=== PATIENT | female | born 1960 | race Caucasian/White ===

== ENCOUNTER 2020-10-12 12:16 | Outpatient (REF) | payer OTHER, SELFPAY ==
[2020-10-12 14:45] LABS: Anion Gap 13 (12-20); Blood Urea Nitrogen 27 mg/dL (9-16); Calcium 8.8 mg/dL (8.4-10.2); Carbon Dioxide 30 mmol/L (22-29); Chloride 103 mmol/L (96-108); Estimated Glomerular Filt Rate > 60; Glucose Random 88 mg/dL (60-115); Potassium 4.5 mmol/l (3.3-5.1); Sodium 141 mmol/L (135-145)
== END 2020-10-12 12:17 | disposition home or self-care (01) ==
LOC: HO.HMGCLDS 12:16
PROVIDERS: PCP Internal Medicine; Visit Provider Internal Medicine
DX: R60.9 Edema, unspecified (principal)
CPT/HCPCS: 80048

== ENCOUNTER 2021-05-15 11:31 | Outpatient (REF) | payer OTHER, SELFPAY ==
[2021-05-15 14:23] LABS: Hematocrit 36.8 % (37-47); Hemoglobin 11.5 g/dl (12.0-16.0); Mean Corpuscular HGB Conc 31.3 g/dl (31.0-35.0); Mean Corpuscular Hemoglobin 27.3 pg (27.0-33.0); Mean Corpuscular Volume 87.4 fL (80-98); Mean Platelet Volume 11.8 fL (9.4-12.3); Platelet Count 224 X10*3/uL (160-400); Red Blood Count 4.21 X10*6/uL (4.20-5.50); Red Cell Distribution Width 15.3 % (11.0-16.0); White Blood Count 8.4 X10*3/uL (4.8-10.8)
[2021-05-15 14:24] LABS: Alanine Aminotransferase 24 U/L (0-31); Albumin Level 3.9 g/dL (3.5-5.0); Alkaline Phosphatase 112 U/L (39-117); Anion Gap 14 (12-20); Aspartate Amino Transferase 16 U/L (5-31); Bilirubin Total 0.6 mg/dL (0.0-1.0); Blood Urea Nitrogen 22 mg/dL (9-16); Calcium 9.2 mg/dL (8.4-10.2); Carbon Dioxide 30 mmol/L (22-29); Chloride 102 mmol/L (96-108); Estimated Glomerular Filt Rate > 60; Glucose Random 84 mg/dL (60-115); Potassium 4.2 mmol/L (3.3-5.1); Sodium 142 mmol/L (135-145); Total Protein 6.6 g/dL (6.5-8.0)
== END 2021-05-15 11:32 | disposition home or self-care (01) ==
LOC: HO.HMGCLDS 11:31
PROVIDERS: PCP Internal Medicine; Visit Provider Internal Medicine
DX: R60.9 Edema, unspecified (principal); I10 Essential (primary) hypertension; G47.33 Obstructive sleep apnea (adult) (pediatric); Z99.89 Dependence on other enabling machines and devices
CPT/HCPCS: 36415; 80053; 85027

== ENCOUNTER → 2021-07-10 11:34 | Outpatient (BNVA) | payer OTHER, SELFPAY | PROVIDERS: PCP Internal Medicine; Referring Provider Internal Medicine; Visit Provider Psychiatry & Neurology Neurology | DX: G47.33 Obstructive sleep apnea (adult) (pediatric) (principal); E66.9 Obesity, unspecified; Z99.89 Dependence on other enabling machines and devices | CPT/HCPCS: 99202 ==

== ENCOUNTER 2021-12-24 11:27 | Outpatient (REF) | payer OTHER, SELFPAY ==
[2021-12-24 14:26] LABS: Alanine Aminotransferase 41 U/L (0-31); Albumin Level 3.9 g/dL (3.5-5.0); Alkaline Phosphatase 114 U/L (39-117); Anion Gap 13 (12-20); Aspartate Amino Transferase 32 U/L (5-31); Bilirubin Total 0.7 mg/dL (0.0-1.0); Blood Urea Nitrogen 18 mg/dL (9-16); Calcium 8.9 mg/dL (8.4-10.2); Carbon Dioxide 28 mmol/L (22-29); Chloride 101 mmol/L (96-108); Cholesterol 148 mg/dL; Estimated Glomerular Filt Rate > 60; Glucose Fasting 109 mg/dL (60-99); HDL Cholesterol 33 mg/dL; LDL Cholesterol Calculated 75 mg/dl; Potassium 4.1 mmol/L (3.3-5.1); Sodium 138 mmol/L (135-145); Total Protein 6.9 g/dL (6.5-8.0); Triglycerides 200 mg/dL
== END 2021-12-24 11:28 | disposition home or self-care (01) ==
LOC: HO.HMGCLDS 11:27
PROVIDERS: Visit Provider Internal Medicine
DX: E66.9 Obesity, unspecified (principal); E78.2 Mixed hyperlipidemia; G47.33 Obstructive sleep apnea (adult) (pediatric); G62.9 Polyneuropathy, unspecified; I10 Essential (primary) hypertension; Z99.89 Dependence on other enabling machines and devices
CPT/HCPCS: 36415; 80053; 80061

== ENCOUNTER → 2022-01-01 10:55 | Outpatient (BNVA) | payer OTHER, SELFPAY | PROVIDERS: PCP Internal Medicine; Referring Provider Internal Medicine; Visit Provider Psychiatry & Neurology Neurology ==

== ENCOUNTER → 2022-01-23 13:01 | Outpatient (REF) | payer OTHER, SELFPAY | LOC: HO.SL 13:01 | PROVIDERS: PCP Internal Medicine; Visit Provider Psychiatry & Neurology Neurology | DX: G47.33 Obstructive sleep apnea (adult) (pediatric) (principal); E66.9 Obesity, unspecified; G25.81 Restless legs syndrome; Z99.89 Dependence on other enabling machines and devices | CPT/HCPCS: 95806 ==

== ENCOUNTER 2022-04-22 11:22 | Outpatient (REF) | payer OTHER, SELFPAY ==
[2022-04-22 13:48] LABS: Hematocrit 37.4 % (37.0-47.0); Hemoglobin 11.7 g/dl (12.0-16.0); Mean Corpuscular HGB Conc 31.3 g/dl (31.0-35.0); Mean Corpuscular Hemoglobin 27.4 pg (27.0-33.0); Mean Corpuscular Volume 87.6 fL (80.0-98.0); Mean Platelet Volume 12.2 fL (9.4-12.3); Platelet Count 218 X10*3/uL (160-400); Red Blood Count 4.27 X10*6/uL (4.20-5.50); Red Cell Distribution Width 16.1 % (11.0-16.0)
[2022-04-22 14:02] LABS: Alanine Aminotransferase 49 U/L (0-31); Alkaline Phosphatase 136 U/L (39-117); Anion Gap 12 (12-20); Aspartate Amino Transferase 37 U/L (5-31); Bilirubin Total 0.7 mg/dL (0.0-1.0); Blood Urea Nitrogen 14 mg/dL (9-16); Carbon Dioxide 31 mmol/L (22-29); Chloride 100 mmol/L (96-108); Cholesterol 141 mg/dL; Estimated Glomerular Filt Rate > 60; Glucose Fasting 117 mg/dL (60-99); HDL Cholesterol 32 mg/dL; LDL Cholesterol Calculated 65 mg/dl; Potassium 4.4 mmol/L (3.3-5.1); Sodium 139 mmol/L (135-145); Total Protein 6.7 g/dL (6.5-8.0); Triglycerides 224 mg/dL
[2022-04-22 14:07] LABS: Estimated Average Glucose 148 mg/dL; Hemoglobin A1c % 6.8 %
== END 2022-04-22 11:23 | disposition home or self-care (01) ==
LOC: HO.HMGCLDS 11:22
PROVIDERS: Visit Provider Internal Medicine
DX: E66.01 Morbid (severe) obesity due to excess calories (principal); E78.2 Mixed hyperlipidemia; I10 Essential (primary) hypertension; R73.9 Hyperglycemia, unspecified
CPT/HCPCS: 36415; 80053; 80061; 83036; 85027

== ENCOUNTER → 2022-08-26 13:20 | Outpatient (BNVA) | payer OTHER, SELFPAY | PROVIDERS: PCP Internal Medicine; Referring Provider Internal Medicine; Visit Provider Physician Assistant | DX: E66.01 Morbid (severe) obesity due to excess calories (principal); M48.00 Spinal stenosis, site unspecified; E11.65 Type 2 diabetes mellitus with hyperglycemia; E78.2 Mixed hyperlipidemia; I10 Essential (primary) hypertension; G47.33 Obstructive sleep apnea (adult) (pediatric); Z99.89 Dependence on other enabling machines and devices | CPT/HCPCS: 99212 ==

== ENCOUNTER 2022-08-27 11:21 | Outpatient (REF) | payer OTHER, SELFPAY ==
[2022-08-27 14:15] LABS: MANUAL DIFF FLAG NO
[2022-08-27 14:25] LABS: Basophils Percent Auto 0.2 % (0-2); Eosinophils Absolute Auto 0.4 X10*3/uL (0.0-0.4); Eosinophils Percent Auto 4.3 % (0-4); Hematocrit 37.3 % (37.0-47.0); Imm Gran Abs Auto 0.02 X10*3/uL (0.00-0.03); Imm Gran Pct Auto 0.2 % (0.0-0.4); Lymphocytes Absolute Auto 1.9 X10*3/uL (1.2-4.9); Lymphocytes Percent Auto 23.1 % (20-40); Mean Corpuscular HGB Conc 32.2 g/dl (31.0-35.0); Mean Corpuscular Hemoglobin 28.2 pg (27.0-33.0); Mean Corpuscular Volume 87.6 fL (80.0-98.0); Mean Platelet Volume 11.7 fL (9.4-12.3); Monocytes Absolute Auto 0.7 X10*3/uL (0.1-1.2); Monocytes Percent Auto 9.1 % (2-11); Neutrophils Absolute Auto 5.1 x10*3/uL (2.0-8.3); Neutrophils Percent Auto 63.1 % (45-73); Platelet Count 214 X10*3/uL (160-400); Red Blood Count 4.26 X10*6/uL (4.20-5.50); Red Cell Distribution Width 15.1 % (11.0-16.0); White Blood Count 8.1 X10*3/uL (4.8-10.8)
[2022-08-27 14:45] LABS: Estimated Average Glucose 137 mg/dL; Hemoglobin A1c % 6.4 %
[2022-08-27 14:57] LABS: Creatinine Urine 18.12 mg/dL; Microalbum/Creatinine Ratio Ur 66.2 ug/mg cr
[2022-08-27 14:59] LABS: Alanine Aminotransferase 38 U/L (0-31); Albumin Level 4.1 g/dL (3.5-5.0); Alkaline Phosphatase 130 U/L (39-117); Anion Gap 17 (12-20); Aspartate Amino Transferase 28 U/L (5-31); Bilirubin Total 0.6 mg/dL (0.0-1.0); Blood Urea Nitrogen 23 mg/dL (9-16); C Reactive Protein 1.68 mg/dL (< or = 0.50); Calcium 9.6 mg/dL (8.4-10.2); Carbon Dioxide 27 mmol/L (22-29); Chloride 99 mmol/L (96-108); Cholesterol 133 mg/dL; Estimated Glomerular Filt Rate > 60; Glucose Fasting 128 mg/dL (60-99); HDL Cholesterol 31 mg/dL; Iron 57 mcg/dL (30-160); LDL Cholesterol Calculated 49 mg/dl; Percent Iron Saturation 18 % (15-50); Potassium 4.1 mmol/L (3.3-5.1); Sodium 139 mmol/L (135-145); Total Iron Binding Capacity 314 mcg/dL (228-428); Total Protein 6.8 g/dL (6.5-8.0); Triglycerides 267 mg/dL; Unsaturated Iron Binding 257 ug/dL
[2022-08-27 15:08] LABS: Ferritin 104 ng/mL (10-250); Insulin 60 uU/mL (2-29); TSH reflex Free T4 1.89 uIU/mL (0.32-4.0); Vitamin D 25-OH Total 36.9 ng/mL (>30)
[2022-08-27 15:36] LABS: Folate 19.4 ng/mL (> or = 4.0); Vitamin B12 340 pg/mL (200-900)
[2022-08-29 14:57] LABS: Calcium (PTHI) 9.5 mg/dL (8.6-10.4); PTHI 31 pg/mL (16-77)
[2022-08-31 06:52] LABS: Zinc 71 mcg/dL (60-130)
[2022-09-01 18:56] LABS: Vitamin A 66 mcg/dL (38-98)
[2022-09-03 11:42] LABS: Vitamin B1 16 nmol/L (8-30)
== END 2022-08-27 11:22 | disposition home or self-care (01) ==
LOC: HO.HMGCLDS 11:21
PROVIDERS: Absent Provider Physician Assistant; PCP Internal Medicine; Visit Provider Internal Medicine
DX: E78.2 Mixed hyperlipidemia (principal); I10 Essential (primary) hypertension; E66.9 Obesity, unspecified; E11.9 Type 2 diabetes mellitus without complications; E66.01 Morbid (severe) obesity due to excess calories; M48.00 Spinal stenosis, site unspecified
CPT/HCPCS: 36415; 80053; 80061; 82043; 82306; 82607; 82728; 82746; 83036; 83525; 83540; 83970; 84425; 84443; 84590; 84630; 85025; 86140

== ENCOUNTER → 2022-09-19 11:29 | Outpatient (BNVA) | payer OTHER, SELFPAY | PROVIDERS: PCP Internal Medicine; Visit Provider Dietitian, Registered | DX: E66.01 Morbid (severe) obesity due to excess calories (principal) | CPT/HCPCS: 97802 ==

== ENCOUNTER → 2022-09-24 13:00 | Outpatient (BNVA) | payer OTHER, SELFPAY | PROVIDERS: PCP Internal Medicine; Visit Provider Counselor Mental Health | DX: F43.20 Adjustment disorder, unspecified (principal); M48.00 Spinal stenosis, site unspecified; E66.9 Obesity, unspecified | CPT/HCPCS: 90791 ==

== ENCOUNTER → 2022-09-25 13:18 | Outpatient (BNVA) | payer OTHER, SELFPAY | PROVIDERS: PCP Internal Medicine; Visit Provider Physician Assistant | DX: E66.01 Morbid (severe) obesity due to excess calories (principal); G47.33 Obstructive sleep apnea (adult) (pediatric); E11.9 Type 2 diabetes mellitus without complications; M48.00 Spinal stenosis, site unspecified; Z99.89 Dependence on other enabling machines and devices; Z68.44 Body mass index [BMI] 60.0-69.9, adult | CPT/HCPCS: 99212 ==

== ENCOUNTER 2022-10-17 13:02 | Outpatient (REF) | payer OTHER, SELFPAY ==
--- NOTE | ~2022-10-17 | XR_ITS ---
EXAMINATION: XR CHEST CLINICAL INFORMATION: G47.33 - Obstructive sleep apnea COMPARISON: None TECHNIQUE: Sitting AP x2 views and a sitting lateral projection are obtained for 3 views. FINDINGS: No airspace consolidation or groundglass opacity or effusion. No hyperinflation. The heart is normal in size. The hilar and mediastinal contours are unremarkable. There are mild multilevel degenerative changes thoracic spine. XR/XR chest 2V IMPRESSION: Unremarkable examination.
--- NOTE | 2022-10-17 13:09 | ECG_ITS ---
Test Reason : eliezer Blood Pressure : / mmHG Vent. Rate : 064 BPM Atrial Rate : 064 BPM P-R Int : 184 ms QRS Dur : 086 ms QT Int : 426 ms P-R-T Axes : 065 010 002 degrees QTc Int : 439 ms Normal sinus rhythm Normal ECG No previous ECGs available Referred By: Yoli Reina Electronically Signed By:KALIA PRIETO MD
== END 2022-10-17 13:03 | disposition home or self-care (01) ==
LOC: HO.XRAY 13:02
PROVIDERS: PCP Internal Medicine; Visit Provider Physician Assistant
DX: M48.00 Spinal stenosis, site unspecified (principal); E11.9 Type 2 diabetes mellitus without complications; E78.2 Mixed hyperlipidemia; G47.33 Obstructive sleep apnea (adult) (pediatric); I10 Essential (primary) hypertension; Z99.89 Dependence on other enabling machines and devices
CPT/HCPCS: 71046; 93005; 99212

== ENCOUNTER 2022-11-07 | Outpatient (REF) | payer OTHER, SELFPAY ==
[2022-11-08 15:21] LABS: H Pylori Breath Test Negative (Negative)
== END 2022-11-07 00:01 | disposition home or self-care (01) ==
LOC: HO.LNP
PROVIDERS: Visit Provider Physician Assistant
DX: Z11.0 Encounter for screening for intestinal infectious diseases (principal)
CPT/HCPCS: 83013

== ENCOUNTER → 2022-11-07 14:40 | Outpatient (BNVA) | payer OTHER, SELFPAY | PROVIDERS: PCP Internal Medicine; Visit Provider Physician Assistant | DX: E66.01 Morbid (severe) obesity due to excess calories (principal); Z68.44 Body mass index [BMI] 60.0-69.9, adult; E11.9 Type 2 diabetes mellitus without complications; G47.33 Obstructive sleep apnea (adult) (pediatric); Z11.0 Encounter for screening for intestinal infectious diseases | CPT/HCPCS: 99211; 99212 ==

== ENCOUNTER 2022-11-26 10:27 | Outpatient (REF) | payer OTHER, SELFPAY ==
[2022-11-26 14:25] LABS: Alanine Aminotransferase 34 U/L (0-31); Alkaline Phosphatase 146 U/L (39-117); Anion Gap 16 (12-20); Aspartate Amino Transferase 29 U/L (5-31); Bilirubin Total 0.6 mg/dL (0.0-1.0); Blood Urea Nitrogen 29 mg/dL (9-16); Calcium 9.2 mg/dL (8.4-10.2); Carbon Dioxide 25 mmol/L (22-29); Chloride 102 mmol/L (96-108); Cholesterol 124 mg/dL; Estimated Glomerular Filt Rate > 60; Glucose Fasting 80 mg/dL (60-99); HDL Cholesterol 27 mg/dL; LDL Cholesterol Calculated 67 mg/dl; Potassium 4.6 mmol/L (3.3-5.1); Sodium 138 mmol/L (135-145); Total Protein 6.6 g/dL (6.5-8.0); Triglycerides 153 mg/dL
[2022-11-26 15:13] LABS: Estimated Average Glucose 120 mg/dL; Hemoglobin A1c % 5.8 %
[2022-11-26 15:34] LABS: Microalbum/Creatinine Ratio Ur 26.9 ug/mg cr
== END 2022-11-26 10:28 | disposition home or self-care (01) ==
LOC: HO.HMGCLDS 10:27
PROVIDERS: PCP Internal Medicine; Visit Provider Internal Medicine
DX: E66.01 Morbid (severe) obesity due to excess calories (principal); E11.9 Type 2 diabetes mellitus without complications; I10 Essential (primary) hypertension; E78.2 Mixed hyperlipidemia
CPT/HCPCS: 36415; 80053; 80061; 82043; 83036

== ENCOUNTER → 2022-11-27 13:29 | Outpatient (BNVA) | payer OTHER, SELFPAY | PROVIDERS: PCP Internal Medicine; Visit Provider Physician Assistant | DX: E66.01 Morbid (severe) obesity due to excess calories (principal); Z68.44 Body mass index [BMI] 60.0-69.9, adult; E11.9 Type 2 diabetes mellitus without complications; M48.00 Spinal stenosis, site unspecified | CPT/HCPCS: 99212 ==

== ENCOUNTER → 2022-12-18 13:38 | Outpatient (BNVA) | payer OTHER, SELFPAY | PROVIDERS: PCP Internal Medicine; Visit Provider Physician Assistant | DX: E66.01 Morbid (severe) obesity due to excess calories (principal); G47.33 Obstructive sleep apnea (adult) (pediatric); M48.00 Spinal stenosis, site unspecified; E11.9 Type 2 diabetes mellitus without complications; Z68.43 Body mass index [BMI] 50.0-59.9, adult | CPT/HCPCS: 99212 ==

== ENCOUNTER 2023-01-03 09:09 | Outpatient (REF) | payer OTHER, SELFPAY ==
--- NOTE | ~2023-01-03 | FL_ITS ---
EXAMINATION: XR FLUOROSCOPY UPPER GI WITH AIR CLINICAL INFORMATION: Obesity. Preop. COMPARISON: None TECHNIQUE: This patient was administered thin liquid barium while upright in AP and bilateral oblique drinking esophagrams were performed. Subsequently, patient was positioned in the supine position and AP and bilateral oblique views of the upper abdomen were performed. Traditional upper GI could not be performed due to patient size and limited mobility. FINDINGS: The esophagus is normal-appearing. The stomach and duodenum are normal. No reflux was observed the patient positioned in the supine position. No hernia seen. There are degenerative changes of the visualized thoracic and lumbar spine. There are postsurgical changes to the lumbar spine. FLUOROSCOPY TIME: No fluoroscopy used. 6 plate images. FL/FL upper GI w air IMPRESSION: Limited exam due to patient size and mobility. No abnormality seen.
--- NOTE | ~2023-01-03 | XR_ITS ---
EXAMINATION: XR lumbar spine 2-3V CLINICAL INFORMATION: Reason for Exam M48.00 - Spinal stenosis, site unspecified COMPARISON: None TECHNIQUE: 3 views of the lumbar spine FINDINGS: Evaluation is limited due to overlapping soft tissues on lateral views. 5 nonrib-bearing lumbar-type vertebral bodies. Vertebral body heights are grossly maintained. Status post posterior fusion hardware from L4 to L5 without evidence of hardware complication, although evaluation is limited. Rightward scoliosis. Degenerative changes of the spine with multilevel disc space narrowing. Paravertebral soft tissues are unremarkable. XR/XR lumbar spine 2-3V IMPRESSION: Status post posterior fusion hardware from L4 to L5 without evidence of hardware complication, although evaluation is limited due to overlapping soft tissues on lateral view.
--- NOTE | ~2023-01-03 | US_ITS ---
EXAMINATION: US COMPLETE ABDOMEN WITH LIVER ELASTOGRAPHY CLINICAL INFORMATION: Obstructive sleep apnea. COMPARISON: None. TECHNIQUE: Real-time imaging of the abdominal viscera. Noninvasive ultrasound liver fibrosis assessment is performed using Katina ElastPQ point quantification shear wave elastography (2D-SWE) with a C5-2 MHz transducer. Multiple elastography samples are obtained. FINDINGS: PANCREAS: Limited. The visualized pancreatic head and body are normal in appearance. The remainder of the pancreas is obscured from visualization by the overlying bowel gas. ABDOMINAL AORTA: The proximal segment is normal in caliber. The mid and distal segments are obscured by overlapping bowel gas. INFERIOR VENA CAVA: Visualized portions are normal. LIVER: The liver demonstrates normal size, contour and increased echogenicity. No focal lesion or intrahepatic biliary duct dilatation. The right lobe measures 18.3 cm in length. The left lobe measures 15.8 cm in length. Portal flow is towards the liver (hepatopetal). Shear wave liver elastography median stiffness is 1.40 m/s (reference: normal median stiffness is 1.3 m/s or less). IQR/median stiffness to assess sampling precision is 0.25 (reference: good quality data set is IQR/median stiffness of 0.15 or less). GALLBLADDER: Normal. The gallbladder is physiologically distended without evidence of stones, sludge, polyps, wall thickening or pericholecystic fluid. COMMON BILE DUCT: Normal in caliber measuring 0.3 cm in diameter. RIGHT KIDNEY: Normal. No hydronephrosis. No renal calculi or focal parenchymal lesions. The kidney measures 11.3 cm in maximum dimension. LEFT KIDNEY: Normal. No hydronephrosis. No renal calculi or focal parenchymal lesions. The kidney measures 11.7 cm in maximum dimension. SPLEEN: Limited visualization. The spleen measures 12.5 cm in maximum dimension. FREE FLUID: None. US/US abdomen comp w elastography IMPRESSION: 1. There is generalized increase in hepatic echotexture, consistent with fatty infiltration or hepatocellular disease. Please correlate clinically. No focal hepatic mass or intrahepatic biliary dilatation is seen. 2. Liver elastography: Although measurements appear to rule out compensated advanced chronic liver disease, there is statistical variability of the sampling which decreases accuracy. 3. Further technical limitations are noted on ultrasound examination of the pancreatic tail, abdominal great vessels and spleen. REFERENCE: Society of Radiologists in Ultrasound Liver Stiffness Thresholds (2020): LIVER STIFFNESS THRESHOLDS: *Liver Stiffness equal or less than 1.3 m/s: High probability of being normal. *Liver Stiffness less than 1.7 m/s: In the absence of other known clinical signs, rules out compensated advanced chronic liver disease. *Liver Stiffness 1.7-2.1 m/s: Suggestive of compensated advanced chronic liver disease but need further test for confirmation. *Liver Stiffness over 2.1 m/s: Rules in compensated advanced chronic liver disease. *Liver Stiffness over 2.4 m/s: Suggestive of clinically significant portal hypertension. QUALITY OF DATA SET: *IQR/Median value equal or less than 0.15 implies a quality data set. *IQR/Median value over 0.15 implies a poor quality data set. SIGNIFICANT CHANGE FROM PRIOR EXAM: Significant change if liver stiffness measurement is 10% or greater from prior exam. OTHER CONSIDERATIONS: The stage of liver fibrosis may be overestimated in the setting of acute hepatitis, liver inflammation, elevated liver function tests, hepatic vascular congestion, obstructive cholestasis, non-fasting state, and infiltrative diseases such as amyloidosis and lymphoma. In some patients with NAFLD, the liver stiffness thresholds for compensated advanced chronic liver disease may be lower. In causes other than viral hepatitis and NAFLD, liver stiffness thresholds are not well established.
== END 2023-01-03 09:10 | disposition home or self-care (01) ==
LOC: HO.US 09:09
PROVIDERS: Visit Provider Physician Assistant
DX: Z01.818 Encounter for other preprocedural examination (principal); G47.33 Obstructive sleep apnea (adult) (pediatric); I10 Essential (primary) hypertension; E78.2 Mixed hyperlipidemia; E11.9 Type 2 diabetes mellitus without complications; M48.00 Spinal stenosis, site unspecified; E66.01 Morbid (severe) obesity due to excess calories; Z99.89 Dependence on other enabling machines and devices
CPT/HCPCS: 72100; 74246; 76705; 76981

== ENCOUNTER → 2023-01-24 11:11 | Outpatient (BNVA) | payer OTHER, SELFPAY | PROVIDERS: PCP Internal Medicine; Referring Provider Internal Medicine; Visit Provider Physician Assistant | DX: E66.9 Obesity, unspecified (principal); E11.9 Type 2 diabetes mellitus without complications; G47.33 Obstructive sleep apnea (adult) (pediatric); M48.00 Spinal stenosis, site unspecified; Z68.43 Body mass index [BMI] 50.0-59.9, adult; Z99.3 Dependence on wheelchair | CPT/HCPCS: 99212 ==

== ENCOUNTER → 2023-02-26 13:42 | Outpatient (BNVA) | payer OTHER, SELFPAY | PROVIDERS: PCP Internal Medicine; Visit Provider Physician Assistant | DX: E66.01 Morbid (severe) obesity due to excess calories (principal); E11.65 Type 2 diabetes mellitus with hyperglycemia; E11.40 Type 2 diabetes mellitus with diabetic neuropathy, unspecified; I10 Essential (primary) hypertension; E78.2 Mixed hyperlipidemia; Z79.4 Long term (current) use of insulin; Z99.3 Dependence on wheelchair | CPT/HCPCS: 99212 ==

== ENCOUNTER 2023-03-18 10:56 | Outpatient (REF) | payer OTHER, SELFPAY ==
[2023-03-18 14:52] LABS: Estimated Average Glucose 105 mg/dL; Hemoglobin A1c % 5.3 %
[2023-03-18 14:56] LABS: Alanine Aminotransferase 33 U/L (0-31); Albumin Level 3.9 g/dL (3.5-5.0); Alkaline Phosphatase 139 U/L (39-117); Anion Gap 13 (12-20); Aspartate Amino Transferase 20 U/L (5-31); Bilirubin Total 0.8 mg/dL (0.0-1.0); Blood Urea Nitrogen 20 mg/dL (9-16); Calcium 9.4 mg/dL (8.4-10.2); Carbon Dioxide 30 mmol/L (22-29); Chloride 102 mmol/L (96-108); Cholesterol 131 mg/dL; Estimated Glomerular Filt Rate > 60; Glucose Fasting 85 mg/dL (60-99); HDL Cholesterol 30 mg/dL; LDL Cholesterol Calculated 74 mg/dl; Potassium 4.4 mmol/L (3.3-5.1); Sodium 141 mmol/L (135-145); Total Protein 6.4 g/dL (6.5-8.0); Triglycerides 138 mg/dL
[2023-03-18 15:09] LABS: Vitamin D 25-OH Total 47.4 ng/mL (>30)
== END 2023-03-18 10:57 | disposition home or self-care (01) ==
LOC: HO.HMGCLDS 10:56
PROVIDERS: PCP Internal Medicine; Visit Provider Internal Medicine
DX: E11.9 Type 2 diabetes mellitus without complications (principal); E78.2 Mixed hyperlipidemia; I10 Essential (primary) hypertension
CPT/HCPCS: 36415; 80053; 80061; 82306; 83036

== ENCOUNTER → 2023-03-19 14:00 | Outpatient (BNVA) | payer OTHER, SELFPAY | PROVIDERS: PCP Internal Medicine; Visit Provider Physician Assistant | DX: E66.01 Morbid (severe) obesity due to excess calories (principal); E11.9 Type 2 diabetes mellitus without complications; G47.33 Obstructive sleep apnea (adult) (pediatric); M48.00 Spinal stenosis, site unspecified; Z99.3 Dependence on wheelchair ==

== ENCOUNTER → 2023-03-31 12:27 | Outpatient (BNVA) | payer OTHER, SELFPAY | PROVIDERS: PCP Internal Medicine; Visit Provider Surgery | DX: E66.01 Morbid (severe) obesity due to excess calories (principal); E11.9 Type 2 diabetes mellitus without complications; E78.2 Mixed hyperlipidemia; G47.33 Obstructive sleep apnea (adult) (pediatric); Z68.43 Body mass index [BMI] 50.0-59.9, adult; Z99.3 Dependence on wheelchair; Z99.89 Dependence on other enabling machines and devices | CPT/HCPCS: 99212 ==

== ENCOUNTER → 2023-04-22 11:30 | Outpatient (BNVA) | payer OTHER, SELFPAY | PROVIDERS: PCP Internal Medicine; Visit Provider Physician Assistant ==

== ENCOUNTER → 2023-04-29 09:29 | Outpatient (REF) | payer OTHER, SELFPAY ==
--- NOTE | ~2023-04-29 | NM_ITS ---
Myocardial perfusion study Indication: Chest pain to evaluate for myocardial ischemia Technique: The patient was brought in for a Lexiscan perfusion study on 04/29/2023. Patient performed low-level exercise and was injected 0.4 mg of Lexiscan intravenously. Within a minute of injection, 45 mCi of sestamibi was given intravenously. Images were obtained using the SPECT gamma camera interlaced with the gating device. Images were obtained in supine position. Resting perfusion study was performed on 04/30/2023. Patient was administered 45 mCi of sestamibi intravenously at rest. Images were then obtained in supine position. Images obtained with and without CT attenuation. Total DLP 220 mGy-cm. Images were processed with the software and compared side to side in short axis, horizontal long axis and vertical long axis views. Findings: The stress perfusion study showed non attenuated images show some thinning of the distal anterior wall of the LV myocardium and minimally reduced uptake in the basal lateral wall of the LV myocardium. Attenuation corrected images show normal uptake of tracer in all segments myocardium. There is suggestion of left ventricle hypertrophy. The gated study shows normal LV systolic function with calculated LVEF of 59%. LV cavity is normal in size. The gated study shows normal systolic wall thickening and contraction of segments. Resting study shows no change in perfusion pattern compared to stress perfusion study. Gating at rest reveals normal systolic wall motion with ejection fraction at 50%. The findings are consistent with likely normal myocardial perfusion. NM/NM cardiolite stress test Impression: 1. Myocardial perfusion imaging study shows likely normal myocardial perfusion 2. Gated LVEF is 59% 3. Transient ischemic dilatation not present EKG is nondiagnostic for ischemia
--- NOTE | 2023-04-29 09:33 | CA_ITS ---
Acquisition Time: 2023-04-29 10:04:11 Total Exercise Time: 00:02:00 Test Indications: CP,UNSPECIFIED Medications: SEE MED SHEET Protocol: LEXISCAN Max HR: 101 BPM 63% of Pred: 159 BPM Max BP: 138/078 mmHG Max Work Load: 1.1 METS Pharmacological stress test with Lexiscan injection while sitting and moving her arm, without anginal symptoms, with isolated PVC and frequent PACs, with normotensive response to injection, with non-diagnostic EKG. Aminophylline 75mg IVP given to reverse Lexiscan. Nuclear images pending. Test reviewed with Dr. Nava. Referred By: Rubén Arthur Overread By: SHEN BLOCK
== END ==
LOC: HO.CARD 09:29
PROVIDERS: PCP Internal Medicine; Visit Provider Surgery
DX: R07.9 Chest pain, unspecified (principal); Z99.3 Dependence on wheelchair
CPT/HCPCS: 78452; 93017; A9500; J0280; J2785

== ENCOUNTER → 2023-04-30 14:28 | Outpatient (REF) | payer OTHER, SELFPAY ==
--- NOTE | 2023-04-30 14:30 | CA_ITS ---
Transthoracic Echocardiogram Patient (Last, First, Middle): Gina Milan, Gender: Female Date of : 1960 Age: 62 Procedure Date: 04/30/2023 Procedure Type: Transthoracic Echocardiogram Location: OP Height: 154.94 cm Weight: 133.36 kg BSA: 2.23 m2 Heart Rate: bpm BP: 130 / 82 mmHg Manager Research Development: Referring MD: Rubén Arthur MD Symptoms: R07.9 CHEST PAIN, UNSPECIFIED Study Quality: Fair ECG Rhythm: Sinus Conclusions: - The left ventricular systolic function is normal. The calculated ejection fraction is 64% by biplane method. - There is moderately increased left ventricular wall thickness. - No obvious valvular pathology seen on this study. Findings Procedure Information Contrast agent, definity, is being given per protocol without apparent complications. Left Ventricle Normal left ventricular cavity size. There is moderately increased left ventricular wall thickness. The left ventricular systolic function is normal. The calculated ejection fraction is 64% by biplane method. There is no evidence of regional wall motion abnormalities. Diastolic function is normal for age. Right Ventricle Normal right ventricular cavity size and systolic function. Atria Both atria are normal in size. Aortic Valve There is a normal trileaflet aortic valve. There is no aortic valve stenosis. There is no aortic valve regurgitation. Mitral Valve The mitral valve appears normal. There is no mitral valve regurgitation. There is no mitral valve stenosis. Pulmonic Valve The pulmonic valve is likely normal. Tricuspid Valve There is trace tricuspid valve regurgitation. There is no evidence of pulmonary hypertension. Great Vessels The asc aorta is normal in size. Venous There is evidence of a dilated coronary sinus. Pericardium/Pleural There is no evidence of pericardial effusion. Prior Study Comparison Changes noted compared to prior study dated: 03/12/2017. LVH not described in prior study. Recommendations, Care & Conclusions No obvious valvular pathology seen on this study. Measurements 2D Linear Measurements IVSd: 1.31 0.6-0.9/0.6-1.0 cm LVIDd: 5.37 3.9-5.3/4.2-5.9 cm LVIDd Index: 2.41 2.4-3.2/2.2-3.1 cm/m2 LVIDs: 3.70 2.0-3.6 cm LVPWd: 1.31 0.7-1.1 cm Ao Root: 3.10 2.1-3.5 cm LA Diam: 3.40 2.7-3.8/3.0-4.0 cm LAIDs Index: 1.52 1.5-2.3 cm/m2 LV Mass: 369.44 67-162/88-224 g LV Mass Index: 165.67 43-95/49-115 g/m2 LVOT Diam: 2.10 3.0+(-)1.3 cm 2D Systolic Function EF 4C: 61.00 >55% EF 2C: 62.30 >55% EF BiP: 64.10 >55% Mitral Valve MV Pk E: 0.85 MV PK A: 0.83 MV Decel Time: 210.00 E/A: 1.00 E'Lateral: 7.40 E'Medial: 6.53 E/E' Med: 13.00 E/E' Lat: 11.50 PHT: 62.00 MVA PHT: 3.55 Decel Gibson: 4.04 Aortic Valve AoV Pk Frankie: 1.65 AoV Mn Frankie: 1.09 AoV VTI: 0.38 AoV Pk Grad: 11.00 Aov Mn Grad: 6.00 AMANDA Cont.VTI: 1.95 LVOT LVOT Pk Frankie: 0.88 LVOT Mn Frankie: 0.54 LVOT VTI: 0.21 LVOT Pk Grad: 3.00 LVOT Mn Grad: 1.00 LVOT Diam: 2.10 LVOT Area: 3.46 Diastolic Function MV Pk E: 0.85 MV Pk A: 0.83 E/A: 1.00 E'Medial: 6.53 E/E' Med: 13.00 E' Laterial: 7.40 E/E' Lat: 11.50 Right Ventricle TAPSE (mm): 26.00 Tricuspid Valve TR Pk Frankie: 1.58 TR Pk Grad: 10.00 RA Press: 15.00 RVSP: 25.00 Great Vessels Aorta Ao Root-2D: 3.10 2.0-3.7 cm Ao Asc: 3.20 2.1-3.4 cm Pulmonary Valve PV Pk Frankie: 1.02 Peak PV Grad: 4.00 Updated in Other Vendor System with Status of Final Ajit Nava MD electronically signed on 05/02/2023 12:41:20 PM with status of Final
== END ==
LOC: HO.CARD 14:28
PROVIDERS: PCP Internal Medicine; Visit Provider Surgery
DX: R07.9 Chest pain, unspecified (principal); Z99.3 Dependence on wheelchair
CPT/HCPCS: 93306; Q9957

== ENCOUNTER → 2023-05-15 15:00 | Outpatient (BNVA) | payer OTHER, SELFPAY | PROVIDERS: PCP Internal Medicine; Visit Provider Physician Assistant ==

== ENCOUNTER 2023-06-11 13:05 | Outpatient (RCR) | payer OTHER, SELFPAY ==
--- NOTE | ~2023-06-11 | XR_ITS ---
EXAMINATION: XR FOOT, RIGHT CLINICAL INFORMATION: Nonhealing wound COMPARISON: None available. TECHNIQUE: AP, lateral, and oblique views of the right foot. FINDINGS: Osteopenia. Hallux valgus. No acute fracture or dislocation. Diffuse soft tissue swelling. No large soft tissue ulceration seen. No soft tissue gas. No osseous erosions. There appears to be fusion across the second digit proximal interphalangeal joint. Degenerative changes at the first tarsometatarsal joint. Achilles heel spur. XR/XR foot RT min 3V IMPRESSION: 1. Diffuse soft tissue swelling. No large soft tissue ulceration. No osseous erosions. 2. Osteopenia.
[2023-06-11 13:32] LABS: MANUAL DIFF FLAG NO
[2023-06-11 13:50] LABS: Basophils Percent Auto 0.3 % (0-2); Eosinophils Absolute Auto 0.2 X10*3/uL (0.0-0.4); Hematocrit 39.5 % (37.0-47.0); Hemoglobin 12.9 g/dl (12.0-16.0); Imm Gran Abs Auto 0.02 X10*3/uL (0.00-0.03); Imm Gran Pct Auto 0.3 % (0.0-0.4); Lymphocytes Percent Auto 27.9 % (20-40); Mean Corpuscular HGB Conc 32.7 g/dl (31.0-35.0); Mean Corpuscular Hemoglobin 28.2 pg (27.0-33.0); Mean Corpuscular Volume 86.2 fL (80.0-98.0); Mean Platelet Volume 10.7 fL (9.4-12.3); Monocytes Absolute Auto 0.6 X10*3/uL (0.1-1.2); Monocytes Percent Auto 8.8 % (2-11); Neutrophils Absolute Auto 4.4 x10*3/uL (2.0-8.3); Neutrophils Percent Auto 59.7 % (45-73); Platelet Count 250 X10*3/uL (160-400); Red Blood Count 4.58 X10*6/uL (4.20-5.50); Red Cell Distribution Width 14.4 % (11.0-16.0); White Blood Count 7.3 X10*3/uL (4.8-10.8)
[2023-06-11 14:19] LABS: Estimated Average Glucose 103 mg/dL; Hemoglobin A1c % 5.2 %
[2023-06-11 14:31] LABS: Anion Gap 15 (12-20); Blood Urea Nitrogen 25 mg/dL (9-16); C Reactive Protein 1.38 mg/dL (< or = 0.50); Carbon Dioxide 27 mmol/L (22-29); Chloride 102 mmol/L (96-108); Estimated Glomerular Filt Rate > 60; Glucose Random 94 mg/dL (60-115); Sodium 140 mmol/L (135-145)
[2023-06-11 14:45] LABS: Erythrocyte Sedimentation Rate 29 MM/HR (0-20)
== END 2023-09-05 14:47 | disposition home or self-care (01) ==
LOC: HO.WCC 13:05
PROVIDERS: PCP Internal Medicine; Visit Provider Physician Assistant
DX: E11.621 Type 2 diabetes mellitus with foot ulcer (principal); L97.511 Non-pressure chronic ulcer of other part of right foot limited to breakdown of skin; E11.40 Type 2 diabetes mellitus with diabetic neuropathy, unspecified; I10 Essential (primary) hypertension; M48.062 Spinal stenosis, lumbar region with neurogenic claudication
CPT/HCPCS: 11042; 11044; 36415; 73630; 80048; 83036; 84134; 85025; 85652; 86140; 97597; 99212

== ENCOUNTER 2023-06-20 12:17 | Outpatient (AMB) | payer OTHER, SELFPAY ==
--- NOTE | 2023-06-20 13:41 | AM.OFFWIN_ITS ---
Intake Vital Signs 06/20/23 13:54 Height 5 ft 1 in BP 136/78 Blood Pressure Location Lt brachial Position Sitting Pulse 66 Pulse Source Pulse Oximeter Temp 97.4 F Temp Source Temporal Artery Scan Pulse Oximetry (%) 97 Oxygen Delivery Method Room Air Intake Visit Reasons: EP LT shoulder concern [phone] Intake Note: Pt is here c/o left shoulder discomfort. Patient Tobacco Use Status: Never used Tobacco Allergies Adhesive Bandages Allergy (Unknown, Verified 06/20/23 13:41) rash adhesive tape [TAPE,ADHESIVE] Allergy (Unknown, Verified 06/20/23 13:41) RASH amlodipine Allergy (Unknown, Verified 06/20/23 13:41) edema atenolol Allergy (Unknown, Verified 06/20/23 13:41) Bradycardia bisoprolol [From Zebeta] Allergy (Unknown, Verified 06/20/23 13:41) Diarrhea labetalol Allergy (Unknown, Verified 06/20/23 13:41) n/a latex [LATEX] Allergy (Unknown, Verified 06/20/23 13:41) RASH vicodin Allergy (Unknown, Uncoded 06/20/23 13:41) heart palpitation Do you need a note to return to daycare/school/sports/work: No HPI HPI Comments History of Present Illness Details 63-year-old female wheelchair-bound, presents with left shoulder pain. States that she was doing some exercises last week to improve her range of motion to the upper extremities, and tweaked something. She has been taking Tylenol, using supportive measures like resting, icing, and passive range of motion exercises to help reduce the pain. She is unable to hook her bra, and remove the bag in the back of her wheelchair. She does not report loss of strength, but states the pain is reducing her range of motion and impairing her activities of daily [facility] Bunion of right foot Edema Foot callus Hyperglycemia Hypertension Morbid obesity Neuropathy Obesity TONI on CPAP Osteoarthritis Plantar fasciitis Spinal stenosis Urinary retention Surgical History H/O colonoscopy H/O foot surgery History of lumbar surgery History of tonsillectomy Family History Father History of heart attack Mother HTN (hypertension) Stroke Brother Stomach cancer Brother History of heart attack HTN (hypertension) Diabetes mellitus Lung cancer Brother Bladder cancer Heart attack Social History Housing: House Alcohol intake: never Patient Tobacco Use Status: Never used Tobacco e-Cigarette/Vaping Use: Never Used Second Hand Smoke Exposure: No Current occupational status: disabled Cognitive needs: No Hearing needs: No Vision needs: Yes Review of Systems Const Details: Constitutional: No Fever, No Chills Cardiovascular: No Chest Pain, No SOB Respiratory: No Cough, No Dyspnea Gastrointestinal: No Nausea, No Vomiting, No Diarrhea, No abdominal Pain Musculoskeletal: positive right shoulder pain, No Myalgias, No Joint Swelling Skin: No Skin lacerations, No rash Neuro: No Weakness, No Numbness, No Paresthesias, No Dizziness, No Headache All systems reviewed & are unremarkable except as noted in HPI and below Physical Exam Vital Signs: Last Vital Signs Temp 97.4 F 06/20/23 13:54 Pulse 66 06/20/23 13:54 BP 136/78 06/20/23 13:54 Pulse Ox 97 06/20/23 13:54 Oxygen Delivery Method Room Air 06/20/23 13:54 Appearance: Alert. Oriented X3. No acute distress. Eyes: Pupils equal, round and reactive to light. Neck: Normal inspection. Neck supple. CVS: Normal heart rate and rhythm. Pulses normal. Respiratory: No respiratory distress. Breath sounds normal. Skin: Skin warm and dry. Normal skin color. Normal skin turgor. Extremities: Full range of motion to upper extremities, tenderness noted with adduction and abduction and flexion of the shoulder. Tenderness at the supraspinatus ligaments. Neuro: No motor deficit. No sensory deficit. Cranial nerves 2-12 intact. Assessment & Plan Assessment & Plan (1) Left shoulder pain: Code(s): M25.512 - Pain in left shoulder Plan 63-year-old female wheelchair-bound, presents with left shoulder pain. States that she was doing some exercises last week to improve her range of motion to the upper extremities, and tweaked something. She has been taking Tylenol, using supportive measures like resting, icing, and passive range of motion exercises to help reduce the pain. She is unable to hook her bra, and remove the bag in the back of her wheelchair. She does not report loss of strength, but states the pain is reducing her range of motion and impairing her activities of daily. Patient's physical exam is consistent with possible ligament injury to the supraspinatus. Considering that this patient is wheelchair-bound, I feel that is more imperative that she have physical therapy assessment and treatment along with orthopedics referral. The limited range of motion to her left upper extremity could possibly be detrimental to her activities of daily living. 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 Will obtain x-rays. Referral and discussion with Orthopedics, and referral to Physical therapy completed. Patient verbalized understanding of discharge instructions. Verbalized understandings of signs and symptoms indicating need for emergent intervention. Orders: Orders XR shoulder LT min 2V Today M25.512 - Pain in left shoulder Referrals Orthopedics Referral M25.512 - Pain in left shoulder Physical Medicine and Rehabilitation Referral M25.512 - Pain in left shoulder Patient Instructions: You were evaluated for left shoulder pain. Your x-rays are pending. Please follow-up with physical therapy as well as Orthopedics. I have referred you to [facility]. [address], [address]. Phone [phone] Take Tylenol 650 mg every 6 hours as needed for pain management. Rest and ice the shoulder to help reduce pain. Thank you for choosing this urgent care for evaluation. Please follow-up with primary care physician as needed. Return to the emergency department for any new, concerning, or worsening symptoms. Coding Level of Care Code Est Pt Level 3 (43085) Diagnoses Left shoulder pain M25.512
[2023-06-20 13:54] VITALS: BP 136/78; PULSE 66; TEMP 36.3; O2SAT 97
== END 2023-06-20 14:35 | disposition home or self-care (01) ==
PROVIDERS: PCP Internal Medicine; Visit Provider Nurse Practitioner Family
DX: M25.512 Pain in left shoulder (principal)
CPT/HCPCS: 99213

== ENCOUNTER 2023-06-20 14:06 | Outpatient (REF) | payer OTHER, SELFPAY ==
--- NOTE | ~2023-06-20 | XR_ITS ---
EXAMINATION: XR SHOULDER, LEFT CLINICAL INFORMATION: Left shoulder pain. COMPARISON: None available. TECHNIQUE: Two views of the left shoulder. FINDINGS: There is no fracture or dislocation. The glenohumeral joint is aligned. Mild hypertrophic degenerative change of the acromioclavicular joint. The visualized lung is clear. The visualized ribs are intact. XR/XR shoulder LT min 2V IMPRESSION: Mild degenerative change of the acromioclavicular joint.
== END 2023-06-20 14:07 | disposition home or self-care (01) ==
LOC: HO.HMGCX 14:06
PROVIDERS: PCP Nurse Practitioner Family; Visit Provider Internal Medicine
DX: M25.512 Pain in left shoulder (principal)
CPT/HCPCS: 73030

== ENCOUNTER 2023-06-30 15:00 | Outpatient (AMB) | payer OTHER, SELFPAY ==
--- NOTE | 2023-06-30 15:00 | MHC.OFFVISWM ---
Intake VS Expanded 06/30/23 15:09 Height 5 ft 1 in Weight 291 lb BMI 55.0 Intake Visit Reasons: VIDEO F/U SWL Allergies Adhesive Bandages Allergy (Unknown, Verified 06/20/23 13:41) rash adhesive tape [TAPE,ADHESIVE] Allergy (Unknown, Verified 06/20/23 13:41) RASH amlodipine Allergy (Unknown, Verified 06/20/23 13:41) edema atenolol Allergy (Unknown, Verified 06/20/23 13:41) Bradycardia bisoprolol [From Zebeta] Allergy (Unknown, Verified 06/20/23 13:41) Diarrhea labetalol Allergy (Unknown, Verified 06/20/23 13:41) n/a latex [LATEX] Allergy (Unknown, Verified 06/20/23 13:41) RASH vicodin Allergy (Unknown, Uncoded 06/20/23 13:41) heart palpitation Medication List - Last Reconciled 06/30/23 by Yoli Reina PA-C acetaminophen ER 1,300 mg PO Q12H aspirin 81 mg PO DAILY carvedilol 6.25 mg PO BID catheter (Bardex All-Silicone Duncan Catheter) As directed celecoxib 200 mg PO BID cholecalciferol (vitamin D3) 25 mcg PO DAILY furosemide 40 mg PO DAILY gabapentin 900 mg (3 x 300 mg) PO BEDTIME hydralazine 50 mg PO BID irbesartan 300 mg PO DAILY magnesium oxide 500 mg PO DAILY multivitamin 1 tab PO DAILY nystatin (Nystop) 1 appl topical BID omega [id number]-ybu-ygf-fish oil 1,000 mg (120 mg-180 mg) (Fish Oil) 1 cap PO DAILY omeprazole 20 mg PO DAILY potassium chloride ER 20 mEq (2 x 10 mEq) PO DAILY pregabalin 150 mg PO BID rosuvastatin 10 mg PO BEDTIME terazosin 20 mg (2 x 10 mg) PO DAILY triamcinolone acetonide 0.1% 1 appl topical DAILY HPI HPI Comments History of Present Illness Details SWL follow up - all pre operative work up completed, patient is s/p GBP and wheelchair bound due to spinal stenosis. 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 Her left shoulder still painful and [place] [facility] [place] appt with Ortho for this. She has a wound on her foot that is not healing well, now goes to wound care clinic for this. May need a graft. Still using her meal plan as expected - 2 shakes, 1 meal nad 1MR - but has not exercising. Stopped Ozempic due to diarrhea. [facility] Medical History Bunion of right foot Edema Foot callus Hyperglycemia Hypertension Morbid obesity Neuropathy Obesity TONI on CPAP Osteoarthritis Plantar fasciitis Spinal stenosis Urinary retention Surgical History H/O colonoscopy H/O foot surgery History of lumbar surgery History of tonsillectomy Family History Father History of heart attack Mother HTN (hypertension) Stroke Brother Stomach cancer Brother History of heart attack HTN (hypertension) Diabetes mellitus Lung cancer Brother Bladder cancer Heart attack Social History Housing: House Alcohol intake: never Patient Tobacco Use Status: Never used Tobacco e-Cigarette/Vaping Use: Never Used Second Hand Smoke Exposure: No Current occupational status: disabled Cognitive needs: No Hearing needs: No Vision needs: Yes Assessment & Plan Assessment & Plan (1) Morbid obesity: Code(s): E66.01 - Morbid (severe) obesity due to excess calories Plan: Pt has not lost any more weight since her last appt due to stopping exercise due to shoulder injury. We discussed how using her present meal plan and exercise she lost 48 lbs, without the exercise - no weight changed. Therefore, she must restart eh exercise along with ehr PT for her shoulder to continue her weight loss progress. CBC adn chemistres done erlier this month - all wnl. HgbA1c - 5.2 Will restart metamucil. Next appt with me in 3 weeks. Patient is still morbidly obese and is not considered stable at this time. I spent 30 minutes in total speaking with the patient via video conference counseling , reviewing records and charting in patients chart. . (2) S/P gastric bypass: Code(s): Z98.84 - Bariatric surgery status Telehealth Telehealth Location of provider rendering services: practice address Location of patient: address on file Patient Identification confirmed using: Name, : Yes Telehealth method: video Patient verbally consented to treatment: Yes Patient verbally consented to billing insurance company: Yes Patient informed of any privacy concerns related to visit: Yes Coding Level of Care Code Tele Est Pt Level 4 (20635) Diagnoses Morbid obesity E66.01 S/P gastric bypass Z98.84
[2023-06-30 15:09] VITALS: BMI 55.0
== END 2023-06-30 15:21 | disposition home or self-care (01) ==
LOC: HO.HBS 15:21
PROVIDERS: PCP Internal Medicine; Visit Provider Physician Assistant
DX: E66.01 Morbid (severe) obesity due to excess calories (principal); Z68.43 Body mass index [BMI] 50.0-59.9, adult
CPT/HCPCS: 99213

== ENCOUNTER → 2023-06-30 15:00 | Outpatient (BNVA) | payer OTHER, SELFPAY | PROVIDERS: PCP Internal Medicine; Visit Provider Physician Assistant | DX: E66.01 Morbid (severe) obesity due to excess calories (principal); Z98.84 Bariatric surgery status ==

== ENCOUNTER 2023-08-05 15:30 | Outpatient (AMB) | payer OTHER, SELFPAY ==
--- NOTE | 2023-08-05 13:22 | A.OFFVIS_ITS ---
Intake VS Expanded 08/05/23 15:40 Height 5 ft 1 in Weight 292 lb BMI 55.2 Intake Visit Reasons: VIDEO F/U SWL Allergies Adhesive Bandages Allergy (Unknown, Verified 06/20/23 13:41) rash adhesive tape [TAPE,ADHESIVE] Allergy (Unknown, Verified 06/20/23 13:41) RASH amlodipine Allergy (Unknown, Verified 06/20/23 13:41) edema atenolol Allergy (Unknown, Verified 06/20/23 13:41) Bradycardia bisoprolol [From Zebeta] Allergy (Unknown, Verified 06/20/23 13:41) Diarrhea labetalol Allergy (Unknown, Verified 06/20/23 13:41) n/a latex [LATEX] Allergy (Unknown, Verified 06/20/23 13:41) RASH vicodin Allergy (Unknown, Uncoded 06/20/23 13:41) heart palpitation Medication List - Last Reconciled 08/05/23 by Yoli Reina PA-C acetaminophen ER 1,300 mg PO Q12H aspirin 81 mg PO DAILY carvedilol 6.25 mg PO BID catheter (Bardex All-Silicone Duncan Catheter) As directed celecoxib 200 mg PO BID cholecalciferol (vitamin D3) 25 mcg PO DAILY furosemide 40 mg PO DAILY gabapentin 900 mg (3 x 300 mg) PO BEDTIME hydralazine 50 mg PO BID irbesartan 300 mg PO DAILY magnesium oxide 500 mg PO DAILY multivitamin 1 tab PO DAILY nystatin (Nystop) 1 appl topical BID omega 0-jmx-wam-fish oil 1,000 mg (120 mg-180 mg) (Fish Oil) 1 cap PO DAILY omeprazole 20 mg PO DAILY potassium chloride ER 20 mEq (2 x 10 mEq) PO DAILY pregabalin 150 mg PO BID rosuvastatin 10 mg PO BEDTIME terazosin 20 mg (2 x 10 mg) PO DAILY triamcinolone acetonide 0.1% 1 appl topical DAILY HPI HPI Comments History of Present Illness Details SWL follow up - all pre operative work up completed, patient is s/p GBP and wheelchair bound due to spinal stenosis. 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 She was taken off Ozempic due to diarrhea- HgbA1C - 5.2, has appt in September with PCP to re -evaluate. Has Ortho appt tomorrow for her left shoulder. Goes to wound center for left foot wound - it's improving. Exercise - had recent URI and is resolving now. Was not able to exercise then, has restarted last week. 5 d PE videos for 1 hour Meal plan: now wakes up 3d/wk at 7:30, other days 8:30, weekends by 9:30 am Having first shake 2 hours after waking, with coffee. Premier powder mixed with 8oz UAM with ice cubes. 3 hours later - shake 3 hours later - bar 2 hours later meal of 10 forks of protei n, and 12 forks of vegetables, serving of fruit PFSH Medical History Bunion of right foot Edema Foot callus Hyperglycemia Hypertension Morbid obesity Neuropathy Obesity TONI on CPAP Osteoarthritis Plantar fasciitis Spinal stenosis Urinary retention Surgical History H/O colonoscopy H/O foot surgery History of lumbar surgery History of tonsillectomy Family History Father History of heart attack Mother HTN (hypertension) Stroke Brother Stomach cancer Brother History of heart attack HTN (hypertension) Diabetes mellitus Lung cancer Brother Bladder cancer Heart attack Social History Housing: House Alcohol intake: never Patient Tobacco Use Status: Never used Tobacco e-Cigarette/Vaping Use: Never Used Second Hand Smoke Exposure: No Current occupational status: disabled Cognitive needs: No Hearing needs: No Vision needs: Yes Assessment & Plan Assessment & Plan (1) Morbid obesity: Code(s): E66.01 - Morbid (severe) obesity due to excess calories Plan: She is a 63 yo woman s/p GBP who is wheelchair dependent due to spinal stenosis. She has lost 47.4 lbs or 13.9% and weighs 292 lbs. She has not lost any more weight since May and has now been taken off her Ozempic by her PCP due to uncontrollable diarrhea.?I have contacted Dr Hairston for any suggestions as to how to help her loose more weight prior to revision bariatric surgery. Dinner meal - will decrease to 8 forks each of protein and vegetable, may have half bar later if feels hungry. Continue PE videos 1 hours daily.Next appt with me in 3 weeks. I have contacted Dr Hairston for suggestions for her further weight loss. Patient is still morbidly obese and is not considered stable at this time. I spent 30 minutes in total speaking with the patient via video conference counseling , reviewing records and charting in patients chart. . (2) S/P gastric bypass: Code(s): Z98.84 - Bariatric surgery status (3) TONI (obstructive sleep apnea): Comment: Severe degree of sleep apnea. The total AHI was 80/hr and oxygen ramiro was 78% Code(s): G47.33 - Obstructive sleep apnea (adult) (pediatric) (4) Wheelchair dependent: Code(s): Z99.3 - Dependence on wheelchair Telehealth Telehealth Location of provider rendering services: practice address Location of patient: address on file Patient Identification confirmed using: Name, : Yes Telehealth method: video Patient verbally consented to treatment: Yes Patient verbally consented to billing insurance company: Yes Patient informed of any privacy concerns related to visit: Yes Coding Level of Care Code Tele Est Pt Level 4 (02539) Diagnoses Morbid obesity E66.01 S/P gastric bypass Z98.84 TONI (obstructive sleep apnea) G47.33 Wheelchair dependent Z99.3
[2023-08-05 15:40] VITALS: BMI 55.2
== END 2023-08-05 16:11 | disposition home or self-care (01) ==
LOC: HO.HBS 16:02
PROVIDERS: PCP Internal Medicine; Visit Provider Physician Assistant
DX: E66.01 Morbid (severe) obesity due to excess calories (principal); Z68.43 Body mass index [BMI] 50.0-59.9, adult; Z90.3 Acquired absence of stomach [part of]; Z98.84 Bariatric surgery status; G47.33 Obstructive sleep apnea (adult) (pediatric); Z99.3 Dependence on wheelchair
CPT/HCPCS: 99214

== ENCOUNTER → 2023-08-05 15:30 | Outpatient (BNVA) | payer OTHER, SELFPAY | PROVIDERS: PCP Internal Medicine; Visit Provider Physician Assistant ==

== ENCOUNTER 2023-08-06 14:43 | Outpatient (AMB) | payer OTHER, SELFPAY ==
--- NOTE | 2023-08-06 14:55 | A.OFFVIS_ITS ---
Intake Intake Visit Reasons: tool crib lead- Pain in left shoulder Intake Note: Gina a 63 year old female who presents today as a new patient with complaints of left shoulder pain. Patient reports pain presented around the end of April when she was performing exercises that were instructed by weight management. She was seen at [facility] in clinic where xrays were taken and referred to PT. She was not able to attend due to needing VNA services. Currently having limited ROM and pain with movement of arm. Denies numbness or tingling. No other tx. Allergies Adhesive Bandages Allergy (Unknown, Verified 06/20/23 13:41) rash adhesive tape [TAPE,ADHESIVE] Allergy (Unknown, Verified 06/20/23 13:41) RASH amlodipine Allergy (Unknown, Verified 06/20/23 13:41) edema atenolol Allergy (Unknown, Verified 06/20/23 13:41) Bradycardia bisoprolol [From Zebeta] Allergy (Unknown, Verified 06/20/23 13:41) Diarrhea labetalol Allergy (Unknown, Verified 06/20/23 13:41) n/a latex [LATEX] Allergy (Unknown, Verified 06/20/23 13:41) RASH vicodin Allergy (Unknown, Uncoded 06/20/23 13:41) heart palpitation HPI tool crib lead- Pain in left shoulder HPI Details 63[facility] after performing exercises instructed by the weight management, in the end of April. She was seen at [facility]-in clinic where x- rays were performed and she was referred to outpatient PT, but was unable to attend as she is wheelchair dependent and does not drive. She states she has pain and limited ROM in her shoulder which is aggravated with reaching back. She denies any numbness or tingling. She has not had any other treatment. [facility] Medical History Bunion of right foot Edema Foot callus Hyperglycemia Hypertension Morbid obesity Neuropathy Obesity TONI on CPAP Osteoarthritis Plantar fasciitis Spinal stenosis Urinary retention Surgical History H/O foot surgery History of tonsillectomy H/O colonoscopy History of lumbar surgery Family History Father History of heart attack Mother HTN (hypertension) Stroke Brother Stomach cancer Brother History of heart attack HTN (hypertension) Diabetes mellitus Lung cancer Brother Bladder cancer Heart attack Social History (Updated 08/06/23 @ 14:57 by Donna Moyer Antonia) Housing: House Alcohol intake: never Patient Tobacco Use Status: Never used Tobacco e-Cigarette/Vaping Use: Never Used Second Hand Smoke Exposure: No Current occupational status: disabled Current occupation: right hand dominant Cognitive needs: No Hearing needs: No Vision needs: Yes Review of Systems Const All systems reviewed & are unremarkable except as noted in HPI and below Physical Exam Const General: cooperative, healthy appearing, comfortable, no acute distress, well developed and alert Orientation/consciousness: patient oriented x3 HEENT Head: Yes normal to inspection, Yes normocephalic and Yes atraumatic Eyes General: appearance normal, both eyes and all related structures Resp Effort & Inspection: normal respiratory effort and able to speak in complete sentences Cardio Rate: regular rate Peripheral pulses: Peripheral pulses 2+ throughout GI Palpation (GI): Soft to palpation Skin Lesions: no lesions Rashes: no rashes Neuro General: patient oriented x3 Extrem Other: Left shoulder normal to inspection. Tenderness over the bicipital groove and along the deltoid region of the shoulder. Forward flexion to 175, external rotation to 90, internal rotation to S1. 5/5 RTC strength. Negative Vincent and cross body abduction. NVI. Results Reviewed Results Reviewed: xrays of the left shoulder obtained on 06/20/23 show acj oa with type 2 acromion. Assessment & Plan Assessment & Plan (1) Left shoulder tendonitis: Code(s): M77.8 - Other enthesopathies, not elsewhere classified Plan We discussed options which include PT, NSAIDs and injections. The patient will defer on the injection today and proceed with PT and NSAIDs. She is going to require home physical therapy as she is home bound and wheelchair dependent. If symptoms persist, the patient will contact me for an injection, otherwise, PRN. Orders: Orders PT Evaluation and Treatment 08/06/23 M77.8 - Other enthesopathies, not elsewhere classified [facility]errals [facility] Referral M77.8 - Other enthesopathies, not elsewhere classified Patient Instructions: Scribed for Ta-Rossi Fields PA-C, by Cecilio Sims, medical insurance collector, on 08/06/2023 at 3:00 PM CAL[facility]. Elias Yun PA-C, have personally reviewed and agree with the information entered by the scribe. Coding Level of Care Code New Pt Level 3 (07247) Diagnoses Left shoulder tendonitis M77.8
== END 2023-08-06 15:45 | disposition home or self-care (01) ==
PROVIDERS: PCP Internal Medicine; Visit Provider Physician Assistant
DX: M77.8 Other enthesopathies, not elsewhere classified (principal)
CPT/HCPCS: 99203

== ENCOUNTER → 2023-08-06 14:43 | Outpatient (BNVA) | payer OTHER, SELFPAY | PROVIDERS: PCP Internal Medicine; Visit Provider Physician Assistant ==

== ENCOUNTER 2023-09-08 10:30 | Outpatient (AMB) | payer OTHER, SELFPAY ==
--- NOTE | 2023-09-08 11:00 | MHC.OFFVISWM ---
Intake VS Expanded 09/08/23 11:01 Height 5 ft 1 in Weight 291 lb BMI 55.0 Intake Visit Reasons: VIDEO F/U SWL Allergies Adhesive Bandages Allergy (Unknown, Verified 06/20/23 13:41) rash adhesive tape [TAPE,ADHESIVE] Allergy (Unknown, Verified 06/20/23 13:41) RASH amlodipine Allergy (Unknown, Verified 06/20/23 13:41) edema atenolol Allergy (Unknown, Verified 06/20/23 13:41) Bradycardia bisoprolol [From Zebeta] Allergy (Unknown, Verified 06/20/23 13:41) Diarrhea labetalol Allergy (Unknown, Verified 06/20/23 13:41) n/a latex [LATEX] Allergy (Unknown, Verified 06/20/23 13:41) RASH vicodin Allergy (Unknown, Uncoded 06/20/23 13:41) heart palpitation HPI HPI Comments History of Present Illness Details SWL program She is a 63 yo woman s/p GBP who is wheelchair dependent due to spinal stenosis. She has lost 49.4 lbs or 14% and weighs 291 lbs. Still using her initial protein products, needs to use them up. Has not been exercising as much this week, having PT for right shoulder - not improving yet. Per Dr Hairston- all MR' s need to last 2 hours. 10 am - shake 1pm - bar 4 - 6pm - shake 7 pm - dinner 9 pm - bar 12 am - bar She is too full to have all of thee meals, this is what she is doinam - shake 1pm - bar 5pm - dinner - 8 forks each - protien and veg, a ew dyas per week has 4 forks rice. 9pm- bar Exercise - PE videos 1 hours daily. [facility] Medical History Bunion of right foot Edema Foot callus Hyperglycemia Hypertension Morbid obesity Neuropathy Obesity TONI on CPAP Osteoarthritis Plantar fasciitis Spinal stenosis Urinary retention Surgical History H/O foot surgery History of tonsillectomy H/O colonoscopy History of lumbar surgery Family History Father History of heart attack Mother HTN (hypertension) Stroke Brother Stomach cancer Brother History of heart attack HTN (hypertension) Diabetes mellitus Lung cancer Brother Bladder cancer Heart attack Social History (Updated 08/06/23 @ 14:57 by JEFFREY Del Toro) Housing: House Alcohol intake: never Patient Tobacco Use Status: Never used Tobacco e-Cigarette/Vaping Use: Never Used Second Hand Smoke Exposure: No Current occupational status: disabled Current occupation: right hand dominant Cognitive needs: No Hearing needs: No Vision needs: Yes Physical Exam Vital Signs: BMI result Body Mass Index 55.0 Assessment & Plan Assessment & Plan (1) Morbid obesity: Code(s): E66.01 - Morbid (severe) obesity due to excess calories Plan: SWL follow up. Struggled this month with exercises - will now try TBP sitting exercise - will also discuss UE exericises. Considering cortisone injection for shoulder pain. Will continue current meal plan until uses up all of her present products. All pre op work up completed. Will text me updates on her exercise. Next appt in 3 weeks with me. Patient is still morbidly obese and is not considered stable at this time. I spent 25 minutes in total speaking with the patient via video conference counseling , reviewing records and charting in patients chart. . (2) S/P gastric bypass: Code(s): Z98.84 - Bariatric surgery status (3) Spinal stenosis: Code(s): M48.00 - Spinal stenosis, site unspecified Telehealth Telehealth Location of provider rendering services: practice address Location of patient: address on file Patient Identification confirmed using: Name, : Yes Telehealth method: voice only Patient verbally consented to treatment: Yes Patient verbally consented to billing insurance company: Yes Patient informed of any privacy concerns related to visit: Yes Coding Level of Care Code Tele Est Pt Level 4 (92570) Diagnoses Morbid obesity E66.01 S/P gastric bypass Z98.84 Spinal stenosis M48.00
[2023-09-08 11:01] VITALS: BMI 55.0
== END 2023-09-08 11:00 | disposition home or self-care (01) ==
PROVIDERS: PCP Internal Medicine; Visit Provider Physician Assistant
DX: E66.01 Morbid (severe) obesity due to excess calories (principal); Z68.43 Body mass index [BMI] 50.0-59.9, adult; Z98.84 Bariatric surgery status; M48.00 Spinal stenosis, site unspecified
CPT/HCPCS: 99213

== ENCOUNTER → 2023-09-08 10:30 | Outpatient (BNVA) | payer OTHER, SELFPAY | PROVIDERS: PCP Internal Medicine; Visit Provider Physician Assistant | DX: E66.01 Morbid (severe) obesity due to excess calories (principal); Z98.84 Bariatric surgery status; M48.00 Spinal stenosis, site unspecified ==

== ENCOUNTER → 2023-09-09 10:30 | Outpatient (BNVA) | payer OTHER, SELFPAY | PROVIDERS: PCP Internal Medicine; Visit Provider Physician Assistant | DX: E66.01 Morbid (severe) obesity due to excess calories (principal); Z98.84 Bariatric surgery status; M48.00 Spinal stenosis, site unspecified ==

== ENCOUNTER 2023-09-15 11:09 | Outpatient (REF) | payer MEDICARE, OTHER, SELFPAY ==
[2023-09-15 13:15] LABS: MANUAL DIFF FLAG NO
[2023-09-15 13:30] LABS: Basophils Percent Auto 0.6 % (0-2); Eosinophils Absolute Auto 0.5 X10*3/uL (0.0-0.4); Eosinophils Percent Auto 6.9 % (0-4); Hematocrit 40.1 % (37.0-47.0); Hemoglobin 12.9 g/dl (12.0-16.0); Imm Gran Abs Auto 0.01 X10*3/uL (0.00-0.03); Imm Gran Pct Auto 0.1 % (0.0-0.4); Lymphocytes Absolute Auto 2.2 X10*3/uL (1.2-4.9); Lymphocytes Percent Auto 33.1 % (20-40); Mean Corpuscular HGB Conc 32.2 g/dl (31.0-35.0); Mean Corpuscular Hemoglobin 28.2 pg (27.0-33.0); Mean Corpuscular Volume 87.7 fL (80.0-98.0); Mean Platelet Volume 12.4 fL (9.4-12.3); Monocytes Absolute Auto 0.8 X10*3/uL (0.1-1.2); Monocytes Percent Auto 11.2 % (2-11); Neutrophils Absolute Auto 3.2 x10*3/uL (2.0-8.3); Neutrophils Percent Auto 48.1 % (45-73); Platelet Count 234 X10*3/uL (160-400); Red Blood Count 4.57 X10*6/uL (4.20-5.50); Red Cell Distribution Width 14.2 % (11.0-16.0); White Blood Count 6.7 X10*3/uL (4.8-10.8)
[2023-09-15 13:41] LABS: Estimated Average Glucose 105 mg/dL; Hemoglobin A1c % 5.3 % (<6.0)
[2023-09-15 13:59] LABS: Alanine Aminotransferase 22 U/L (0-31); Albumin Level 4.1 g/dL (3.5-5.0); Alkaline Phosphatase 109 U/L (39-117); Anion Gap 13 (12-20); Aspartate Amino Transferase 20 U/L (5-31); Bilirubin Total 0.7 mg/dL (0.0-1.0); Blood Urea Nitrogen 20 mg/dL (9-16); Calcium 9.4 mg/dL (8.4-10.2); Carbon Dioxide 30 mmol/L (22-29); Chloride 102 mmol/L (96-108); Cholesterol 148 mg/dL (<200); Estimated Glomerular Filt Rate > 60; Glucose Fasting 89 mg/dL (60-99); HDL Cholesterol 34 mg/dL (>40); LDL Cholesterol Calculated 75 mg/dL (<100); Sodium 141 mmol/L (135-145); Total Protein 7.2 g/dL (6.5-8.0); Triglycerides 198 mg/dL (<150)
[2023-09-15 14:09] LABS: Creatinine Urine 5.38 mg/dL; Microalbumin Urine < 5.0 mg/L
== END 2023-09-15 11:10 | disposition home or self-care (01) ==
LOC: HO.HMGCLDS 11:09
PROVIDERS: Absent Provider Physician Assistant; PCP Internal Medicine; Visit Provider Internal Medicine
DX: E11.65 Type 2 diabetes mellitus with hyperglycemia (principal); E78.2 Mixed hyperlipidemia; E66.9 Obesity, unspecified; I10 Essential (primary) hypertension
CPT/HCPCS: 36415; 80053; 80061; 82043; 82570; 83036; 85025

== ENCOUNTER 2023-09-29 11:32 | Outpatient (AMB) | payer MEDICARE, OTHER, SELFPAY ==
--- NOTE | 2023-09-29 11:51 | MHC.PC.OV ---
Vital Signs 09/29/23 11:54 BMI Reason not done Patient refused/unable BP 140/90 H Blood Pressure Location Lt brachial Position Sitting Pulse 68 Pulse Source Pulse Oximeter Pulse Oximetry (%) 97 Oxygen Delivery Method Room Air Intake Visit Reasons: Annual PE Intake Note: Pt is here today for PE. Allergies Adhesive Bandages Allergy (Unknown, Verified 09/29/23 11:56) rash adhesive tape [TAPE,ADHESIVE] Allergy (Unknown, Verified 09/29/23 11:56) RASH amlodipine Allergy (Unknown, Verified 09/29/23 11:56) edema atenolol Allergy (Unknown, Verified 09/29/23 11:56) Bradycardia bisoprolol [From Zebeta] Allergy (Unknown, Verified 09/29/23 11:56) Diarrhea labetalol Allergy (Unknown, Verified 09/29/23 11:56) n/a latex [LATEX] Allergy (Unknown, Verified 09/29/23 11:56) RASH semaglutide [From Ozempic] Adverse Reaction (Intermediate, Verified 09/29/23 12:35) Diarrhea vicodin Allergy (Unknown, Uncoded 09/29/23 11:56) heart palpitation Medication List - Last Reconciled 09/29/23 by Yolanda Jack MD acetaminophen ER 1,300 mg PO Q12H aspirin 81 mg PO DAILY carvedilol 6.25 mg PO BID catheter (Bardex All-Silicone Duncan Catheter) As directed celecoxib 200 mg PO BID cholecalciferol (vitamin D3) 25 mcg PO DAILY clotrimazole-betamethasone 1-0.05 % 1 appl topical BID 2 weeks furosemide 40 mg PO DAILY gabapentin 900 mg (3 x 300 mg) PO BEDTIME hydralazine 50 mg PO BID irbesartan 300 mg PO DAILY magnesium oxide 500 mg PO DAILY multivitamin 1 tab PO DAILY nystatin (Nystop) 1 appl topical BID omega 3-cpu-snf-fish oil 1,000 mg (120 mg-180 mg) (Fish Oil) 1 cap PO DAILY omeprazole 20 mg PO DAILY potassium chloride ER 20 mEq (2 x 10 mEq) PO DAILY pregabalin 150 mg PO BID rosuvastatin 10 mg PO BEDTIME terazosin 20 mg (2 x 10 mg) PO DAILY triamcinolone acetonide 0.1% 1 appl topical DAILY Tobacco use date assessed: 09/29/23 Dental Screening Dental Screen Date: 09/29/23 Did you have a dental visit in the last 12 months?: No Did you have a dental problem in the last 6 months where you did not have access to dental care?: No Was dental information given to patient?: Patient declined HPI Annual PE HPI Details Pt presents for PE. Pt f/u with weight management for morbid obesity. [facility] Medical History Bunion of right foot Edema Foot callus Hyperglycemia Hypertension Morbid obesity Neuropathy Obesity TONI on CPAP Osteoarthritis Plantar fasciitis Spinal stenosis Urinary retention Surgical History H/O foot surgery History of tonsillectomy H/O colonoscopy History of lumbar surgery Family History Father History of heart attack Mother HTN (hypertension) Stroke Brother Stomach cancer Brother History of heart attack HTN (hypertension) Diabetes mellitus Lung cancer Brother Bladder cancer Heart attack Social History (Updated 08/06/23 @ 14:57 by JEFFREY Del Toro) Housing: House Alcohol intake: never Patient Tobacco Use Status: Never used Tobacco e-Cigarette/Vaping Use: Never Used Second Hand Smoke Exposure: No Current occupational status: disabled Current occupation: right hand dominant Cognitive needs: No Hearing needs: No Vision needs: Yes Questionnaire Thrive Questionnaire Date Thrive assessed: 01/03/22 AUDIT C Alcohol Use Questionnaire (AUDIT-C) 1. How often do you have a drink containing alcohol?: Never 3. How often do you have six or more drinks on one occasion?: Never Total Score: 0 GIANNA-7 AMB Questionnaire GIANNA-7 Date GIANNA - 7 assessed: 01/03/22 Source: Developed by Drs. Renan Amor, Yoselin Haines, Arnulfo Manzanares and colleagues, with an educational delia from [employer]. Review of Systems Const All systems reviewed & are unremarkable except as noted in HPI and below Reports no additional complaints Eyes Reports no additional complaints ENT Reports no additional complaints Card Reports no additional complaints Resp Reports no additional complaints GI Reports no additional complaints Reports no additional complaints Musc Reports no additional complaints Skin/Breast Reports system reviewed and no additional complaints, except as documented Physical exam (Primary Care) Vital Signs: Last Vital Signs Pulse 68 09/29/23 11:54 BP 146/100 H 09/29/23 11:54 Pulse Ox 97 09/29/23 11:54 Oxygen Delivery Method Room Air 09/29/23 11:54 Tobacco/Smoking Status: Tobacco use Status Tobacco use date assessed 09/29/23 09/29/23 11:59 Patient Tobacco Use Status Never used Tobacco 09/29/23 11:59 e-Cigarette/Vaping Use Never Used 09/29/23 11:53 Thrive Assessment: Date of Thrive Assessment Date Thrive assessed 01/03/22 09/29/23 11:53 Const General: no acute distress HENMT Head: Yes normal to inspection Ears: hearing grossly normal bilaterally Eyes General: appearance normal, both eyes and all related structures Neck Neck: Yes no lymphadenopathy and Yes supple Resp Effort & Inspection: normal respiratory effort Auscultation: clear to auscultation bilaterally Cardio Rhythm: regular rhythm Heart sounds: S1 normal heart sound present and S2 normal heart sound present GI Inspection: Yes obesity Palpation (GI): Soft to palpation Percussion: Yes normal to percussion Auscultation: normal bowel sounds Office Procedures Flu Questionnaire Does the patient have a severe egg allergy?: No Does the patient have severe life threatening allergies?: No Does the patient have a fever or illness today?: No Has the patient ever had Guillain-[place] Syndrome?: No Has the patient ever had any past reaction to a flu shot?: No Immunizations flu vacc [id number] 6mos up(PF) 60 mcg(15 mcgx4)/0.5 mL IM syringe Performing Provider: Yolanda Jack MD Performing Location: [facility] Administered by: JEFFREY Schwab on 09/29/23 12:04 Dose Route Admin Location Dispensed Lot Number Expiration Date NDC 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 The total AHI was 80/hr and oxygen ramiro was 78% Code(s): G47.33 - Obstructive sleep apnea (adult) (pediatric) Plan: Follow-up with sleep medicine (3) Morbid obesity: Code(s): E66.01 - Morbid (severe) obesity due to excess calories Plan: Weight loss discussed with the patient continue with the weight management program (4) Mixed hyperlipidemia: Code(s): E78.2 - Mixed hyperlipidemia Plan: Continue statin (5) Hypertension: Code(s): I10 - Essential (primary) hypertension Plan: Increase hydralazine to 50 mg t.i.d. and continue the rest of the medications. Follow-up in 2 months for blood pressure 2 (6) Annual physical exam: Code(s): Z00.00 - Encounter for general adult medical examination without abnormal findings Plan: Well-balanced diet regular physical activity discussed with the patient. Due to her morbid obesity she cannot have mammogram colonoscopy or Pap Orders: Orders Influenza [id number] Immunization Today Z23 - Encounter for immunization Medications: New erythromycin 0.5 inches ophthalmic (eye) BID 3.5 grams 0RF Changed From hydralazine 50 mg PO BID 180 tabs 3RF To hydralazine 50 mg PO TID 270 tabs 3RF Coding Level of Care Code Est Pt Prev Care 40-64y(76003) Diagnoses DM type 2 (diabetes mellitus, type 2) E11.9 TONI (obstructive sleep apnea) G47.33 Morbid obesity E66.01 Mixed hyperlipidemia E78.2 Hypertension I10 Annual physical exam Z00.00
[2023-09-29 11:54] VITALS: BP 140/90; PULSE 68; O2SAT 97
== END 2023-09-29 12:51 | disposition home or self-care (01) ==
LOC: HO.HMGC 11:32
PROVIDERS: PCP Internal Medicine; Visit Provider Internal Medicine
DX: Z00.00 Encounter for general adult medical examination without abnormal findings (principal); E11.9 Type 2 diabetes mellitus without complications; E66.01 Morbid (severe) obesity due to excess calories; Z23 Encounter for immunization; G47.33 Obstructive sleep apnea (adult) (pediatric); E78.2 Mixed hyperlipidemia; I10 Essential (primary) hypertension
CPT/HCPCS: 90471; 90686; 99396

== ENCOUNTER 2023-10-23 11:30 | Outpatient (AMB) | payer OTHER, SELFPAY ==
--- NOTE | 2023-10-23 11:43 | A.OFFVIS_ITS ---
Intake VS Expanded 10/23/23 11:47 Height 5 ft 1 in Weight 293 lb BMI 55.4 Intake Visit Reasons: VIDEO F/U SWL Allergies Adhesive Bandages Allergy (Unknown, Verified 09/29/23 11:56) rash adhesive tape [TAPE,ADHESIVE] Allergy (Unknown, Verified 09/29/23 11:56) RASH amlodipine Allergy (Unknown, Verified 09/29/23 11:56) edema atenolol Allergy (Unknown, Verified 09/29/23 11:56) Bradycardia bisoprolol [From Zebeta] Allergy (Unknown, Verified 09/29/23 11:56) Diarrhea labetalol Allergy (Unknown, Verified 09/29/23 11:56) n/a latex [LATEX] Allergy (Unknown, Verified 09/29/23 11:56) RASH semaglutide [From Ozempic] Adverse Reaction (Intermediate, Verified 09/29/23 12:35) Diarrhea vicodin Allergy (Unknown, Uncoded 09/29/23 11:56) heart palpitation Medication List - Last Reconciled 10/23/23 by Yoli Reina PA-C acetaminophen ER 1,300 mg PO Q12H aspirin 81 mg PO DAILY carvedilol 6.25 mg PO BID catheter (Bardex All-Silicone Duncan Catheter) As directed celecoxib 200 mg PO BID cholecalciferol (vitamin D3) 25 mcg PO DAILY clotrimazole-betamethasone 1-0.05 % 1 appl topical BID 2 weeks furosemide 40 mg PO DAILY gabapentin 900 mg (3 x 300 mg) PO BEDTIME hydralazine 50 mg PO TID irbesartan 300 mg PO DAILY magnesium oxide 500 mg PO DAILY multivitamin 1 tab PO DAILY nystatin (Nystop) 1 appl topical BID omega 6-bxh-dsb-fish oil 1,000 mg (120 mg-180 mg) (Fish Oil) 1 cap PO DAILY omeprazole 20 mg PO DAILY potassium chloride ER 20 mEq (2 x 10 mEq) PO DAILY pregabalin 150 mg PO BID rosuvastatin 10 mg PO BEDTIME terazosin 20 mg (2 x 10 mg) PO DAILY triamcinolone acetonide 0.1% 1 appl topical DAILY HPI HPI Comments History of Present Illness Details [facility] program follow up. Has been in our program since August 2022, [employer] weight of 339.4. TBWL 46.4 lbs or 13.7%. She is a 63 yo woman s/p GBP who is wheelchair dependent due to spinal stenosis.. L shoulder pain better, but not completely resolved, will see Ortho for injection Feels that she has hit a wall with weight loss efforts. Feeling unmotivated due to unclear what she needs to do to have bariatric surgery. Saw her PCP Dr Jack in September and hydralazine was increased to tid for elevated BP. TRG have increase from normal levels to 198 since she started using Zone bars, her PCP was questioning this. Per Dr Hairston- all MR' s need to last 2 hours. Did not like this plan - 1pm - bar 4 - 6pm - shake 7 pm - dinner 9 pm - bar 12 am - bar She was too full to have all of thee meals, this is what she has been doinam - shake or has an egg with turkey sausage. 1pm - bar 5pm - dinner - 8 forks each - protein an d veg, finds it hard to use forks. 6 oz proteina nd 3/4 c vegetable 9pm- bar 12 pm - bar Exercise - not doing much any more, tried TBP sitting - to hard for her LE. [facility] Medical History Bunion of right foot Edema Foot callus Hyperglycemia Hypertension Morbid obesity Neuropathy Obesity TONI on CPAP Osteoarthritis Plantar fasciitis Spinal stenosis Urinary retention Surgical History H/O foot surgery History of tonsillectomy H/O colonoscopy History of lumbar surgery Family History Father History of heart attack Mother HTN (hypertension) Stroke Brother Stomach cancer Brother History of heart attack HTN (hypertension) Diabetes mellitus Lung cancer Brother Bladder cancer Heart attack Social History (Updated 08/06/23 @ 14:57 by JEFFREY Del Toro) Housing: House Alcohol intake: never Patient Tobacco Use Status: Never used Tobacco e-Cigarette/Vaping Use: Never Used Second Hand Smoke Exposure: No Current occupational status: disabled Current occupation: right hand dominant Cognitive needs: No Hearing needs: No Vision needs: Yes Assessment & Plan Assessment & Plan (1) Morbid obesity: Code(s): E66.01 - Morbid (severe) obesity due to excess calories Plan: Pt has been in our program for revision of GBP for 14 months with 13.7% TBWL. She is feeling unmotivated and has decreased her exercise routine due to this. She now has worsening HTN and triglyceridemia. Will discuss her case with Dr Arthur. In the mean time we discussed that she needs to restart Javier Philip videos - 30 minutes daily and work back up to 1 hour daily. Meal plan - we will discuss changes once I have input form Dr Hairston for his plan. Patient is still morbidly obese and is not considered stable at this time. I spent 30 minutes in total speaking with the patient via video conference counseling , reviewing records and charting in patients chart. . (2) S/P gastric bypass: Code(s): Z98.84 - Bariatric surgery status (3) Wheelchair dependent: Code(s): Z99.3 - Dependence on wheelchair (4) DM type 2 (diabetes mellitus, type 2): Comment: diet controlled, intolerant to Oempic (diarrhea) , A1C 5.4 10/02 Code(s): E11.9 - Type 2 diabetes mellitus without complications Plan: Presently in good control, Hgb AiC 5.3 last month (5) TONI (obstructive sleep apnea): Code(s): G47.33 - Obstructive sleep apnea (adult) (pediatric) Plan: Continue using CPA nightly (6) Hypertension: Code(s): I10 - Essential (primary) hypertension Plan: Continue to monitor with new dosing (7) Hypertriglyceridemia: Code(s): E78.1 - Pure hyperglyceridemia Plan: Will discuss stopping Zone bars with Dr Hairston. Plan see above Telehealth Telehealth Location of provider rendering services: practice address Location of patient: address on file Patient Identification confirmed using: Name, : Yes Telehealth method: video Patient verbally consented to treatment: Yes Patient verbally consented to billing insurance company: Yes Patient informed of any privacy concerns related to visit: Yes Coding Level of Care Code Tele Est Pt Level 4 (54970) Diagnoses Morbid obesity E66.01 S/P gastric bypass Z98.84 Wheelchair dependent Z99.3 DM type 2 (diabetes mellitus, type 2) E11.9 TONI (obstructive sleep apnea) G47.33 Hypertension I10 Hypertriglyceridemia E78.1
[2023-10-23 11:47] VITALS: BMI 55.4
== END 2023-10-23 12:15 | disposition home or self-care (01) ==
LOC: HO.HBS 11:57
PROVIDERS: PCP Internal Medicine; Visit Provider Physician Assistant
DX: E66.01 Morbid (severe) obesity due to excess calories (principal); Z68.43 Body mass index [BMI] 50.0-59.9, adult; Z98.84 Bariatric surgery status; Z99.3 Dependence on wheelchair
CPT/HCPCS: 99214

== ENCOUNTER → 2023-10-23 11:30 | Outpatient (BNVA) | payer MEDICARE, OTHER, SELFPAY | PROVIDERS: PCP Internal Medicine; Visit Provider Physician Assistant ==

== ENCOUNTER 2023-11-06 14:00 | Outpatient (AMB) | payer MEDICARE, OTHER, SELFPAY ==
[2023-11-06 14:10] VITALS: BP 152/90; PULSE 65; O2SAT 95; BMI 55.7
--- NOTE | 2023-11-06 14:10 | MHC.OFFVIS ---
Intake Vital Signs 11/06/23 14:10 Height 5 ft 1 in Weight 295 lb BMI 55.7 BP 152/90 H Blood Pressure Location Lt brachial Pulse 65 Pulse Source Pulse Oximeter Pulse Oximetry (%) 95 Oxygen Delivery Method Room Air Intake Visit Reasons: Eligible for new CPAP machine needs appt-Conf Intake Note: Patient ptresents for fu- Eligible for new CPAP machine. Airline Ticket Agent Required: No Accompanied by: Self / Same As Patient Allergies Adhesive Bandages Allergy (Unknown, Verified 11/06/23 14:13) rash adhesive tape [TAPE,ADHESIVE] Allergy (Unknown, Verified 11/06/23 14:13) RASH amlodipine Allergy (Unknown, Verified 11/06/23 14:13) edema atenolol Allergy (Unknown, Verified 11/06/23 14:13) Bradycardia bisoprolol [From Zebeta] Allergy (Unknown, Verified 11/06/23 14:13) Diarrhea labetalol Allergy (Unknown, Verified 11/06/23 14:13) n/a latex [LATEX] Allergy (Unknown, Verified 11/06/23 14:13) RASH semaglutide [From Ozempic] Adverse Reaction (Intermediate, Verified 11/06/23 14:13) Diarrhea vicodin Allergy (Unknown, Uncoded 09/29/23 11:56) heart palpitation HPI HPI Comments History of Present Illness Details 63 y/o female patient with TONI on BiPAP presents for follow up visit. Pt reports that her home care company informed her that she is eligible for new BiPAP and requested new BiPAP prescription. Pt's current BiPAP is more than 5 years old. Her home care company [employer]. Pt's last sleep study was January,. The sleep study result was significant for a severe degree of sleep apnea. The AHI was 80/hr and oxygen ramiro was 78%. She is on BiPAP 29/09. The compliance and therapy response (10/07/23-11/05/23) reviewed. The usage days 100% and the average usage hours 3 hrs 30 min. The residual AHI was 9/hr. She is in wt loss program and lost 70 lb over the last year. She sleeps well with her BiPAP, sometimes fall asleep her recliner and forgets to put BiPAP on, wakes up in the middle of night and put it on. She has rested sleep and alert and not dozing off during daytime. [facility] Medical History (Updated 11/06/23 @ 15:03 by Ivan Kenney CNP) Bunion of right foot Hyperglycemia Morbid obesity Foot callus Neuropathy Edema Urinary retention Plantar fasciitis Obesity TONI on CPAP Osteoarthritis Spinal stenosis Hypertension Surgical History H/O foot surgery History of tonsillectomy H/O colonoscopy History of lumbar surgery Family History Father History of heart attack Mother HTN (hypertension) Stroke Brother Stomach cancer Brother History of heart attack HTN (hypertension) Diabetes mellitus Lung cancer Brother Bladder cancer Heart attack Social History Housing: House Alcohol intake: never Patient Tobacco Use Status: Never used Tobacco e-Cigarette/Vaping Use: Never Used Second Hand Smoke Exposure: No Current occupational status: disabled Current occupation: right hand dominant Cognitive needs: No Hearing needs: No Vision needs: Yes Review of Systems Const All systems reviewed & are unremarkable except as noted in HPI and below Physical Exam Vital Signs: Last Vital Signs Pulse 65 11/06/23 14:10 BP 152/90 H 11/06/23 14:10 Pulse Ox 95 11/06/23 14:10 Oxygen Delivery Method Room Air 11/06/23 14:10 BMI result Body Mass Index 55.7 Const General: cooperative Nutritional Appearance: obese Orientation/consciousness: patient oriented x3 Limitations: wheelchair Neck Neck: Yes full ROM and Yes supple Resp Effort & Inspection: normal respiratory effort and able to speak in complete sentences Neuro General: patient oriented x3 Cranial nerves: Yes CN's II-XII intact bilaterally Cognition (Neuro): normal cognition Psych Appearance: grossly normal Mental Status: mental status grossly normal Speech and movement: Normal speech and movement present Assessment & Plan Assessment & Plan (1) TONI (obstructive sleep apnea): Comment: Severe degree of sleep apnea and On BiPAP Code(s): G47.33 - Obstructive sleep apnea (adult) (pediatric) Plan New BiPAP prescription sent to [facility]. Continue to use BiPAP as patient experiences good clinical effects. Continue to follow up with wt management. Coding Level of Care Code Est Pt Level 3 (12458) Diagnoses TONI (obstructive sleep apnea) G47.33
== END 2023-11-06 14:35 | disposition home or self-care (01) ==
PROVIDERS: PCP Internal Medicine; Visit Provider Nurse Practitioner Family
DX: G47.33 Obstructive sleep apnea (adult) (pediatric) (principal)
CPT/HCPCS: 99213

== ENCOUNTER → 2023-11-06 14:00 | Outpatient (BNVA) | payer MEDICARE, OTHER, SELFPAY | PROVIDERS: PCP Internal Medicine; Visit Provider Nurse Practitioner Family | DX: G47.33 Obstructive sleep apnea (adult) (pediatric) (principal) | CPT/HCPCS: 99212 ==

== ENCOUNTER → 2023-11-21 23:59 | Outpatient (BNV) | payer MEDICARE, OTHER, SELFPAY | PROVIDERS: PCP Internal Medicine; Visit Provider Internal Medicine | DX: R33.9 Retention of urine, unspecified (principal); Z46.6 Encounter for fitting and adjustment of urinary device | CPT/HCPCS: G0179 ==

== ENCOUNTER 2023-12-02 11:33 | Outpatient (AMB) | payer MEDICARE, OTHER, SELFPAY ==
--- NOTE | 2023-12-02 12:16 | MHC.PC.OV ---
Vital Signs 12/02/23 12:17 Height 5 ft 1 in BMI Reason not done Patient refused/unable BP 156/88 H Blood Pressure Location Lt brachial Position Sitting Pulse 63 Pulse Source Pulse Oximeter Pulse Oximetry (%) 96 Oxygen Delivery Method Room Air Intake Visit Reasons: 2 month follow up Intake Note: Pt is here for a 2 month follow up at a change in her BP medications Allergies Adhesive Bandages Allergy (Unknown, Verified 12/02/23 12:20) rash adhesive tape [TAPE,ADHESIVE] Allergy (Unknown, Verified 12/02/23 12:20) RASH amlodipine Allergy (Unknown, Verified 12/02/23 12:20) edema atenolol Allergy (Unknown, Verified 12/02/23 12:20) Bradycardia bisoprolol [From Zebeta] Allergy (Unknown, Verified 12/02/23 12:20) Diarrhea labetalol Allergy (Unknown, Verified 12/02/23 12:20) n/a latex [LATEX] Allergy (Unknown, Verified 12/02/23 12:20) RASH semaglutide [From Ozempic] Adverse Reaction (Intermediate, Verified 12/02/23 12:20) Diarrhea vicodin Allergy (Unknown, Uncoded 12/02/23 12:20) heart palpitation Medication List - Last Reconciled 12/02/23 by Yolanda Jack MD acetaminophen ER 1,300 mg PO Q12H aspirin 81 mg PO DAILY carvedilol 6.25 mg PO BID catheter (Bardex All-Silicone Duncan Catheter) As directed celecoxib 200 mg PO BID cholecalciferol (vitamin D3) 25 mcg PO DAILY clotrimazole-betamethasone 1-0.05 % 1 appl topical BID PRN furosemide 40 mg PO DAILY gabapentin 900 mg (3 x 300 mg) PO BEDTIME hydralazine 50 mg PO TID irbesartan 300 mg PO DAILY magnesium oxide 500 mg PO DAILY multivitamin 1 tab PO DAILY nystatin (Nystop) 1 appl topical BID omega 5-gvl-dde-fish oil 1,000 mg (120 mg-180 mg) (Fish Oil) 1 cap PO DAILY omeprazole 20 mg PO DAILY potassium chloride ER 20 mEq (2 x 10 mEq) PO DAILY pregabalin 150 mg PO BID rosuvastatin 10 mg PO BEDTIME terazosin 20 mg (2 x 10 mg) PO DAILY triamcinolone acetonide 0.1% 1 appl topical DAILY PRN Tobacco use date assessed: 12/02/23 Dental Screening Dental Screen Date: 12/02/23 Did you have a dental visit in the last 12 months?: No Did you have a dental problem in the last 6 months where you did not have access to dental care?: No Was dental information given to patient?: No HPI 2 month follow up HPI Details PATIENT PRESENTS FOR THE FOLLOW-UP ON HYPERTENSION MORBID OBESITY.. Patient has been followed by weight management program and eating protein bars and drinking shakes. Blood pressure has been elevated since she started weight management program diet. [facility] Medical History Bunion of right foot Hyperglycemia Morbid obesity Foot callus Neuropathy Edema Urinary retention Plantar fasciitis Obesity TONI on CPAP Osteoarthritis Spinal stenosis Hypertension Surgical History H/O foot surgery History of tonsillectomy H/O colonoscopy History of lumbar surgery Family History Father History of heart attack Mother HTN (hypertension) Stroke Brother Stomach cancer Brother History of heart attack HTN (hypertension) Diabetes mellitus Lung cancer Brother Bladder cancer Heart attack Social History Housing: House Alcohol intake: never Patient Tobacco Use Status: Never used Tobacco e-Cigarette/Vaping Use: Never Used Second Hand Smoke Exposure: No Current occupational status: disabled Current occupation: right hand dominant Cognitive needs: No Hearing needs: No Vision needs: Yes Questionnaire PHQ-9 Over the last 2 weeks, how often have you been bothered by any of the following problems? 1. Little interest or pleasure in doing things: not at all 2. Feeling down, depressed, or hopeless: not at all 3. Trouble falling or staying asleep, or sleeping too much: not at all 4. Feeling tired or having little energy: not at all 5. Poor appetite or overeating: not at all 6. Feeling bad about yourself - or that you are a failure or have let yourself or your family down: not at all 7. Trouble concentrating on things, such as reading the newspaper or watching television: not at all 8. Moving or speaking so slowly that other people could have noticed. Or the opposite - being so fidgety or restless that you have been moving around a lot more than usual: not at all 9. Thoughts that you would be better off or of hurting yourself in some way: not at all Total score: 0 Depression Screening Interpretation: Negative Depression Screening Done: Yes Source: Developed by Drs. Renan Amor, Yoselin Haines, Arnulfo Manzanares and colleagues, with an educational delia from [employer]. Thrive Questionnaire Date Thrive assessed: 12/02/23 I am a: Patient What is your living situation today?: I have a steady place to live Within the past 12 months, did the food you bought not last and you didn't have the money to get more?: Never true Within the past 12 months, did you worry whether your food would run out before you got money to buy more?: Never true Do you have trouble paying for medicines?: No Do you have trouble getting transportation to medical appointments?: No Do you have trouble paying your heating and electricity bill?: No Do you have trouble taking care of your child, family member or friend?: No Do you have trouble with day-to-day activities such as bathing, preparing meals, shopping, managing finances, etc.?: No Are you currently unemployed and looking for a job?: No Are you interested in more education?: No THRIVE Score: 0 AUDIT C Alcohol Use Questionnaire (AUDIT-C) 1. How often do you have a drink containing alcohol?: Never 3. How often do you have six or more drinks on one occasion?: Never Total Score: 0 GIANNA-7 AMB Questionnaire GIANNA-7 Date GIANNA - 7 assessed: 12/02/23 Feeling nervous, anxious, or on edge: 0 = Not at all Not being able to stop or control worryin = Not at all Worrying too much about different things: 0 = Not at all Trouble relaxin = Not at all Being so restless that it is hard to sit still: 0 = Not at all Becoming easily annoyed or irritable: 0 = Not at all Feeling afraid as if something awful might happen: 0 = Not at all Total GIANNA-7 score (0-4 normal; 5-9 mild; 10-14 moderate; 15-21 severe): 0 Source: Developed by Drs. Renan Amor, Yoselin Haines, Arnulfo Manzanares and colleagues, with an educational delia from [employer]. Review of Systems Const All systems reviewed & are unremarkable except as noted in HPI and below Reports no additional complaints Eyes Reports no additional complaints ENT Reports no additional complaints Card Reports no additional complaints Resp Reports no additional complaints GI Reports no additional complaints Reports no additional complaints Physical exam (Primary Care) Vital Signs: Last Vital Signs Pulse 63 12/02/23 12:17 BP 156/88 H 12/02/23 12:17 Pulse Ox 96 12/02/23 12:17 Oxygen Delivery Method Room Air 12/02/23 12:17 Tobacco/Smoking Status: Tobacco use Status Tobacco use date assessed 12/02/23 12/02/23 12:19 Patient Tobacco Use Status Never used Tobacco 12/02/23 12:16 e-Cigarette/Vaping Use Never Used 12/02/23 12:16 PHQ-9: PHQ-9 Score PHQ-9: Total score 0 12/02/23 12:19 Depression Screening Interpretation: Negative Thrive Assessment: Date of Thrive Assessment Date Thrive assessed 12/02/23 12/02/23 12:19 Const General: no acute distress HENMT Head: Yes normal to inspection Eyes General: appearance normal, both eyes and all related structures Resp Effort & Inspection: normal respiratory effort Auscultation: clear to auscultation bilaterally Cardio Rhythm: regular rhythm Heart sounds: S1 normal heart sound present and S2 normal heart sound present Assessment and Plan Assessment & Plan (1) Hypertriglyceridemia: Code(s): E78.1 - Pure hyperglyceridemia Plan: Continue statin and low saturated fat diet (2) DM type 2 (diabetes mellitus, type 2): Comment: diet controlled, intolerant to Oempic (diarrhea) , A1C 5.4 10/02 Code(s): E11.9 - Type 2 diabetes mellitus without complications Plan: Continue ADA diet (3) Mixed hyperlipidemia: Code(s): E78.2 - Mixed hyperlipidemia Plan: Continue statin (4) Hypertension: Code(s): I10 - Essential (primary) hypertension Plan: Blood pressure is still elevated. spironolactone 25 mg daily will be added to current medications. Patient will stop potassium supplement ,have basic metabolic panel in 2 weeks and will follow-up in 2 months with a (5) Obesity: Comment: [place] [facility] [place]s): E66.9 - Obesity, unspecified Plan: Patient is planning to restart weight watchers program and avoid high salt foods Orders: Orders Comprehensive [place]. Panel Fast 2 Months E11.9 - Type 2 diabetes mellitus without complications, E78.1 - Pure hyperglyceridemia, E78.2 - Mixed hyperlipidemia, I10 - Essential (primary) hypertension Basic Metabolic Panel 2 Weeks E11.9 - Type 2 diabetes mellitus without complications, E78.1 - Pure hyperglyceridemia, E78.2 - Mixed hyperlipidemia, I10 - Essential (primary) hypertension Hemoglobin A1c 2 Months E11.9 - Type 2 diabetes mellitus without complications, E78.1 - Pure hyperglyceridemia, E78.2 - Mixed hyperlipidemia, I10 - Essential (primary) hypertension Complete Blood Count Auto Diff 2 Months E11.9 - Type 2 diabetes mellitus without complications, E78.1 - Pure hyperglyceridemia, E78.2 - Mixed hyperlipidemia, I10 - Essential (primary) hypertension Lipid Panel 2 Months E11.9 - Type 2 diabetes mellitus without complications, E78.1 - Pure hyperglyceridemia, E78.2 - Mixed hyperlipidemia, I10 - Essential (primary) hypertension Medications: New spironolactone 25 mg PO DAILY 90 tabs 0RF Coding Level of Care Code Est Pt Level 4 (00057) Diagnoses Hypertriglyceridemia E78.1 DM type 2 (diabetes mellitus, type 2) E11.9 Mixed hyperlipidemia E78.2 Hypertension I10 Obesity E66.9
[2023-12-02 12:17] VITALS: BP 156/88; PULSE 63; O2SAT 96
== END 2023-12-02 13:07 | disposition home or self-care (01) ==
PROVIDERS: PCP Internal Medicine; Visit Provider Internal Medicine
DX: E78.1 Pure hyperglyceridemia (principal); E11.69 Type 2 diabetes mellitus with other specified complication; E78.2 Mixed hyperlipidemia; I10 Essential (primary) hypertension; E66.9 Obesity, unspecified
CPT/HCPCS: 99214

== ENCOUNTER 2023-12-10 13:37 | Outpatient (AMB) | payer MEDICARE, OTHER, SELFPAY ==
--- NOTE | 2023-12-10 13:39 | A.OFFVIS_ITS ---
Intake Intake Visit Reasons: OV-Pain in left shoulder-discuss injection Intake Note: 63 year old right hand dominant female presents to the office today for pain in her left shoulder and to discuss an injection. Pt states she has had the pain since April of 2023. Pt states she saw Bill in July 2023 and since then did 6-8 weeks of home PT. She states her range of motion is still not great and she gets pain when she moves certain ways. Pt states she has been taking tylenol daily for a while but it does not help. Allergies Adhesive Bandages Allergy (Unknown, Verified 12/10/23 13:40) rash adhesive tape [TAPE,ADHESIVE] Allergy (Unknown, Verified 12/10/23 13:40) RASH amlodipine Allergy (Unknown, Verified 12/10/23 13:40) edema atenolol Allergy (Unknown, Verified 12/10/23 13:40) Bradycardia bisoprolol [From Zebeta] Allergy (Unknown, Verified 12/10/23 13:40) Diarrhea labetalol Allergy (Unknown, Verified 12/10/23 13:40) n/a latex [LATEX] Allergy (Unknown, Verified 12/10/23 13:40) RASH semaglutide [From Ozempic] Adverse Reaction (Intermediate, Verified 12/10/23 13:40) Diarrhea vicodin Allergy (Unknown, Uncoded 12/10/23 13:40) heart palpitation Medication List - Last Reconciled 12/10/23 by Bill Fields PA-C acetaminophen ER 1,300 mg PO Q12H aspirin 81 mg PO DAILY carvedilol 6.25 mg PO BID catheter (Bardex All-Silicone Duncan Catheter) As directed celecoxib 200 mg PO BID cholecalciferol (vitamin D3) 25 mcg PO DAILY clotrimazole-betamethasone 1-0.05 % 1 appl topical BID PRN furosemide 40 mg PO DAILY gabapentin 900 mg (3 x 300 mg) PO BEDTIME hydralazine 50 mg PO TID irbesartan 300 mg PO DAILY magnesium oxide 500 mg PO DAILY multivitamin 1 tab PO DAILY nystatin (Nystop) 1 appl topical BID omega 0-wcf-tyf-fish oil 1,000 mg (120 mg-180 mg) (Fish Oil) 1 cap PO DAILY omeprazole 20 mg PO DAILY pregabalin 150 mg PO BID rosuvastatin 10 mg PO BEDTIME spironolactone 25 mg PO DAILY terazosin 20 mg (2 x 10 mg) PO DAILY triamcinolone acetonide 0.1% 1 appl topical DAILY PRN HPI OV-Pain in left shoulder-discuss injection HPI Details 63-year-old right hand dominant female izaiah stephenson returns to the office today for a follow-up of left shoulder pain s/p fall in April 2023. She continues to have pain in her shoulder with certain movements. She is working with physical therapy as instructed. She finds no relief with Tylenol. She would like to discuss about having an injection. [facility] Medical History Bunion of right foot Hyperglycemia Morbid obesity Foot callus Neuropathy Edema Urinary retention Plantar fasciitis Obesity TONI on CPAP Osteoarthritis Spinal stenosis Hypertension Surgical History H/O foot surgery History of tonsillectomy H/O colonoscopy History of lumbar surgery Family History Father History of heart attack Mother HTN (hypertension) Stroke Brother Stomach cancer Brother History of heart attack HTN (hypertension) Diabetes mellitus Lung cancer Brother Bladder cancer Heart attack Social History Housing: House Alcohol intake: never Patient Tobacco Use Status: Never used Tobacco e-Cigarette/Vaping Use: Never Used Second Hand Smoke Exposure: No Current occupational status: disabled Current occupation: right hand dominant Cognitive needs: No Hearing needs: No Vision needs: Yes Review of Systems Const All systems reviewed & are unremarkable except as noted in HPI and below Physical Exam Const General: cooperative, healthy appearing, comfortable, no acute distress, well developed and alert Orientation/consciousness: patient oriented x3 HEENT Head: Yes normal to inspection, Yes normocephalic and Yes atraumatic Eyes General: appearance normal, both eyes and all related structures Resp Effort & Inspection: normal respiratory effort and able to speak in complete sentences Cardio Rate: regular rate Peripheral pulses: Peripheral pulses 2+ throughout GI Palpation (GI): Soft to palpation Skin Lesions: no lesions Rashes: no rashes Neuro General: patient oriented x3 Extrem Other: Left shoulder normal to inspection. Tenderness over the bicipital groove and along the deltoid region of the shoulder. Forward flexion to 175, external rotation to 90, internal rotation to S1. 5/5 RTC strength. Negative Vincent and cross body abduction. NVI. Bilat wrist normal to inspection. Tenderness over the carpal canal. intermittent Numbness and tingling over the median nerve distribution of the right hand. Able to make a full fist and fully extend all fingers. Negative Tinel's. Office Procedures Joint Injection/Drain Joint Injection/Drain Primary Site: left shoulder Prep: site was prepped using aseptic technique, ethochloride spray was applied and injection warnings given Injected: 80 mg of, DepoMedrol, with 8 mL of, 1% plain lidocaine and in the subcromial space Approach Used: posterolateral Procedure: The patient tolerated the procedure well and there was some relief with the local anesthesia Coding 57621 - Glenohumeral/Tronchanteric Bursa/Intraarticular Procedure code (CPT) selection complete Assessment & Plan Assessment & Plan (1) Left shoulder tendonitis: Code(s): M77.8 - Other enthesopathies, not elsewhere classified Plan We discussed options today which include steroid injection. They did consent to move forward with the left shoulder injection, which was tolerated well. I recommended rest, ice and elevation and OTC anti-inflammatories PRN for discomfort. If symptoms persist or worsens over the next 6-8 weeks, patient will contact the office, otherwise follow-up as needed. Patient Instructions: Scribed for Bill Fields PA-C, by Cecilio Sims medical clinic manager, on 12/10/2023 at 1:45 PM EST. I, Bill Fields PA-C, have personally reviewed and agree with the information entered by the scribe. Coding Level of Care Code Est Pt Level 3 (37049) Diagnoses Left shoulder tendonitis M77.8 CPT Codes Coding - Joint 7: 22147 - Glenohumeral/Tronchanteric Bursa/Intraarticular ([id number])
== END 2023-12-10 14:22 | disposition home or self-care (01) ==
PROVIDERS: PCP Internal Medicine; Visit Provider Physician Assistant
DX: M77.8 Other enthesopathies, not elsewhere classified (principal); M25.512 Pain in left shoulder
CPT/HCPCS: 20610; 99213

== ENCOUNTER → 2023-12-10 13:37 | Outpatient (BNVA) | payer MEDICARE, OTHER, SELFPAY | PROVIDERS: PCP Internal Medicine; Visit Provider Physician Assistant | DX: M77.8 Other enthesopathies, not elsewhere classified (principal); M25.512 Pain in left shoulder | CPT/HCPCS: 20610; 99212; J1040 ==

== ENCOUNTER 2023-12-22 10:47 | Outpatient (REF) | payer MEDICARE, OTHER, SELFPAY ==
[2023-12-22 13:50] LABS: Anion Gap 12 (12-20); Blood Urea Nitrogen 31 mg/dL (9-16); Calcium 9.2 mg/dL (8.4-10.2); Carbon Dioxide 28 mmol/L (22-29); Chloride 101 mmol/L (96-108); Estimated Glomerular Filt Rate > 60; Glucose Random 107 mg/dL (60-115); Potassium 4.5 mmol/L (3.3-5.1); Sodium 136 mmol/L (135-145)
== END 2023-12-22 10:48 | disposition home or self-care (01) ==
LOC: HO.HMGCLDS 10:47
PROVIDERS: PCP Internal Medicine; Visit Provider Internal Medicine
DX: E78.1 Pure hyperglyceridemia (principal); E11.9 Type 2 diabetes mellitus without complications; E78.2 Mixed hyperlipidemia; I10 Essential (primary) hypertension
CPT/HCPCS: 36415; 80048

== ENCOUNTER 2024-01-14 10:05 | Outpatient (REF) | payer MEDICARE, OTHER, SELFPAY ==
[2024-01-14 13:20] LABS: MANUAL DIFF FLAG NO
[2024-01-14 13:35] LABS: Basophils Percent Auto 0.4 % (0-2); Eosinophils Absolute Auto 0.4 X10*3/uL (0.0-0.4); Eosinophils Percent Auto 6.5 % (0-4); Hematocrit 36.9 % (37.0-47.0); Imm Gran Abs Auto 0.01 X10*3/uL (0.00-0.03); Imm Gran Pct Auto 0.2 % (0.0-0.4); Lymphocytes Absolute Auto 2.1 X10*3/uL (1.2-4.9); Lymphocytes Percent Auto 37.2 % (20-40); Mean Corpuscular HGB Conc 32.5 g/dl (31.0-35.0); Mean Corpuscular Volume 86.2 fL (80.0-98.0); Mean Platelet Volume 11.8 fL (9.4-12.3); Monocytes Absolute Auto 0.6 X10*3/uL (0.1-1.2); Monocytes Percent Auto 10.6 % (2-11); Neutrophils Absolute Auto 2.5 x10*3/uL (2.0-8.3); Neutrophils Percent Auto 45.1 % (45-73); Platelet Count 206 X10*3/uL (160-400); Red Blood Count 4.28 X10*6/uL (4.20-5.50); Red Cell Distribution Width 14.3 % (11.0-16.0); White Blood Count 5.6 X10*3/uL (4.8-10.8)
[2024-01-14 14:17] LABS: Alanine Aminotransferase 19 U/L (0-31); Albumin Level 3.9 g/dL (3.5-5.0); Alkaline Phosphatase 79 U/L (39-117); Anion Gap 11 (12-20); Aspartate Amino Transferase 16 U/L (5-31); Bilirubin Total 0.6 mg/dL (0.0-1.0); Blood Urea Nitrogen 26 mg/dL (9-16); Calcium 9.4 mg/dL (8.4-10.2); Carbon Dioxide 30 mmol/L (22-29); Chloride 101 mmol/L (96-108); Cholesterol 148 mg/dL (<200); Estimated Glomerular Filt Rate > 60; Glucose Fasting 98 mg/dL (60-99); HDL Cholesterol 34 mg/dL (>40); LDL Cholesterol Calculated 80 mg/dL (<100); Potassium 4.5 mmol/L (3.3-5.1); Sodium 137 mmol/L (135-145); Total Protein 6.6 g/dL (6.5-8.0); Triglycerides 171 mg/dL (<150)
[2024-01-14 14:21] LABS: Estimated Average Glucose 117 mg/dL; Hemoglobin A1c % 5.7 % (<6.0)
== END 2024-01-14 10:06 | disposition home or self-care (01) ==
LOC: HO.HMGCLDS 10:05
PROVIDERS: PCP Internal Medicine; Visit Provider Internal Medicine
DX: E78.1 Pure hyperglyceridemia (principal); E11.9 Type 2 diabetes mellitus without complications; E78.2 Mixed hyperlipidemia; I10 Essential (primary) hypertension
CPT/HCPCS: 36415; 80053; 80061; 83036; 85025

== ENCOUNTER 2024-01-21 11:49 | Outpatient (AMB) | payer MEDICARE, OTHER, SELFPAY ==
[2024-01-21 11:55] VITALS: BP 126/80; PULSE 59; O2SAT 97; BMI 53.1
--- NOTE | 2024-01-21 11:55 | MHC.PC.OV ---
Vital Signs 01/21/24 11:55 Height 5 ft 1 in Weight 281 lb BMI 53.1 BP 126/80 Blood Pressure Location Lt radial Position Sitting Pulse 59 Pulse Source Pulse Oximeter Pulse Oximetry (%) 97 Oxygen Delivery Method Room Air Intake Visit Reasons: 2 month follow up Intake Note: Pt is here today for 2 months follow up visit on BP. Allergies Adhesive Bandages Allergy (Unknown, Verified 01/21/24 12:02) rash adhesive tape [TAPE,ADHESIVE] Allergy (Unknown, Verified 01/21/24 12:02) RASH amlodipine Allergy (Unknown, Verified 01/21/24 12:02) edema atenolol Allergy (Unknown, Verified 01/21/24 12:02) Bradycardia bisoprolol [From Zebeta] Allergy (Unknown, Verified 01/21/24 12:02) Diarrhea labetalol Allergy (Unknown, Verified 01/21/24 12:02) n/a latex [LATEX] Allergy (Unknown, Verified 01/21/24 12:02) RASH semaglutide [From Ozempic] Adverse Reaction (Intermediate, Verified 01/21/24 12:02) Diarrhea vicodin Allergy (Unknown, Uncoded 01/21/24 12:02) heart palpitation Medication List - Last Reconciled 01/21/24 by Yolanda Jack MD acetaminophen ER 1,300 mg PO Q12H aspirin 81 mg PO DAILY carvedilol 6.25 mg PO BID catheter (Bardex All-Silicone Duncan Catheter) As directed celecoxib 200 mg PO BID cholecalciferol (vitamin D3) 25 mcg PO DAILY clotrimazole-betamethasone 1-0.05 % 1 appl topical BID PRN furosemide 40 mg PO DAILY gabapentin 900 mg (3 x 300 mg) PO BEDTIME hydralazine 50 mg PO TID irbesartan 300 mg PO DAILY magnesium oxide 500 mg PO DAILY multivitamin 1 tab PO DAILY nystatin (Nystop) 1 appl topical BID omega 4-krp-nay-fish oil 1,000 mg (120 mg-180 mg) (Fish Oil) 1 cap PO DAILY omeprazole 20 mg PO DAILY pregabalin 150 mg PO BID rosuvastatin 10 mg PO BEDTIME spironolactone 25 mg PO DAILY terazosin 20 mg (2 x 10 mg) PO DAILY triamcinolone acetonide 0.1% 1 appl topical DAILY PRN Tobacco use date assessed: 01/21/24 HPI 2 month follow up HPI Details Pt presents for f/u HTN, obesity, hyperlipidemia chronic lower extremity edema. Patient reports losing 8 lb after starting weight watchers and taking spironolactone. Lower extremity swelling improved significantly. [facility] Medical History Bunion of right foot Hyperglycemia Morbid obesity Foot callus Neuropathy Edema Urinary retention Plantar fasciitis Obesity TONI on CPAP Osteoarthritis Spinal stenosis Hypertension Surgical History H/O foot surgery History of tonsillectomy H/O colonoscopy History of lumbar surgery Family History Father History of heart attack Mother HTN (hypertension) Stroke Brother Stomach cancer Brother History of heart attack HTN (hypertension) Diabetes mellitus Lung cancer Brother Bladder cancer Heart attack Social History Housing: House Alcohol intake: never Patient Tobacco Use Status: Never used Tobacco e-Cigarette/Vaping Use: Never Used Second Hand Smoke Exposure: No Current occupational status: disabled Current occupation: right hand dominant Cognitive needs: No Hearing needs: No Vision needs: Yes Questionnaire Thrive Questionnaire Date Thrive assessed: 12/02/23 GIANNA-7 AMB Questionnaire GIANNA-7 Date GIANNA - 7 assessed: 12/02/23 Source: Developed by Drs. Renan Amor, Yoselin Haines, Arnulfo Manzanares and colleagues, with an educational delia from [employer] Review of Systems Const All systems reviewed & are unremarkable except as noted in HPI and below Reports no additional complaints Eyes Reports no additional complaints ENT Reports no additional complaints Card Reports no additional complaints Resp Reports no additional complaints GI Reports no additional complaints Reports no additional complaints Physical exam (Primary Care) Vital Signs: Last Vital Signs Pulse 59 01/21/24 11:55 BP 126/80 01/21/24 11:55 Pulse Ox 97 01/21/24 11:55 Oxygen Delivery Method Room Air 01/21/24 11:55 BMI result Body Mass Index 53.1 Tobacco/Smoking Status: Tobacco use Status Tobacco use date assessed 01/21/24 01/21/24 12:02 Patient Tobacco Use Status Never used Tobacco 01/21/24 11:56 e-Cigarette/Vaping Use Never Used 01/21/24 11:56 Thrive Assessment: Date of Thrive Assessment Date Thrive assessed 12/02/23 01/21/24 11:56 Const General: no acute distress HENMT Head: Yes normal to inspection Ears: hearing grossly normal bilaterally Mouth: Normal oral and palatal mucosa present Eyes General: appearance normal, both eyes and all related structures Neck Neck: Yes supple Resp Effort & Inspection: normal respiratory effort Auscultation: clear to auscultation bilaterally Cardio Rhythm: regular rhythm Heart sounds: S1 normal heart sound present and S2 normal heart sound present GI Inspection: Yes normal to inspection Palpation (GI): Soft to palpation Percussion: Yes normal to percussion Auscultation: normal bowel sounds Extrem Other: 1+ pitting edema bilaterally Assessment and Plan Assessment & Plan (1) DM type 2 (diabetes mellitus, type 2): Comment: diet controlled, intolerant to Ozempic (diarrhea) , A1C 5.4 10/02 Code(s): E11.9 - Type 2 diabetes mellitus without complications Plan: Continue ADA diet increase physical activity weight loss discussed with the patient (2) Morbid obesity: Code(s): E66.01 - Morbid (severe) obesity due to excess calories Plan: Continue weight watchers and weight loss program (3) Mixed hyperlipidemia: Code(s): E78.2 - Mixed hyperlipidemia Plan: Continue statin (4) Hypertension: Code(s): I10 - Essential (primary) hypertension Plan: Continue current medications follow-up in 3 months with a fasting labs before Orders: Orders Comprehensive [place]. Panel Fast 3 Months E11.9 - Type 2 diabetes mellitus without complications, E66.01 - Morbid (severe) obesity due to excess calories, E78.2 - Mixed hyperlipidemia, I10 - Essential (primary) hypertension Hemoglobin A1c 3 Months E11.9 - Type 2 diabetes mellitus without complications, E66.01 - Morbid (severe) obesity due to excess calories, E78.2 - Mixed hyperlipidemia, I10 - Essential (primary) hypertension Complete Blood Count Auto Diff 3 Months E11.9 - Type 2 diabetes mellitus without complications, E66.01 - Morbid (severe) obesity due to excess calories, E78.2 - Mixed hyperlipidemia, I10 - Essential (primary) hypertension Microalbumin, Random (w Creat) 3 Months E11.9 - Type 2 diabetes mellitus without complications, E66.01 - Morbid (severe) obesity due to excess calories, E78.2 - Mixed hyperlipidemia, I10 - Essential (primary) hypertension Lipid Panel 3 Months E11.9 - Type 2 diabetes mellitus without complications, E66.01 - Morbid (severe) obesity due to excess calories, E78.2 - Mixed hyperlipidemia, I10 - Essential (primary) hypertension Medications: Changed From hydralazine 50 mg PO TID 270 tabs 3RF To hydralazine 50 mg PO BID 180 tabs 3RF Coding Level of Care Code Est Pt Level 4 (65662) Diagnoses DM type 2 (diabetes mellitus, type 2) E11.9 Morbid obesity E66.01 Mixed hyperlipidemia E78.2 Hypertension I10
== END 2024-01-21 12:59 | disposition home or self-care (01) ==
PROVIDERS: PCP Internal Medicine; Visit Provider Internal Medicine
DX: E11.9 Type 2 diabetes mellitus without complications (principal); E66.01 Morbid (severe) obesity due to excess calories; Z68.33 Body mass index [BMI] 33.0-33.9, adult; E78.2 Mixed hyperlipidemia; I10 Essential (primary) hypertension
CPT/HCPCS: 99214

== ENCOUNTER 2024-01-30 13:49 | Outpatient (REF) | payer MEDICARE, OTHER, SELFPAY ==
--- NOTE | 2024-01-30 13:52 | EMG_ITS ---
Chief complaint: Bilateral hand numbness Reason for referral: Evaluate for Carpal Tunnel Syndrome Referred by: Elias FOSTER Procedure done: Bilateral upper extremities NCS/EMG Precautions and/or limitations: None The limb temperature was monitored continuously and remained between 32-36 degrees C during the performance of the NCS. Nerve Conduction Studies Anti Sensory Summary Table ?Stim Site NR Onset (ms) Norm Onset (ms) Peak (ms) Norm Peak (ms) O-P Amp (?V) Norm O-P Amp Site1 Site2 Delta-0 (ms) Dist (cm) Frankie (m/s) Norm Frankie (m/s) Left Median Anti Sensory (2nd Digit) Wrist ? 3.9 5.0 <3.6 10.3 >10 Wrist 2nd Digit 3.9 14.0 36 Right Median Anti Sensory (2nd Digit) Wrist ? 4.9 6.4 <3.6 4.6 >10 Wrist 2nd Digit 4.9 14.0 29 Right Radial Anti Sensory (Thumb) Forearm ? 0.9 1.9 <3.1 11.4 Forearm Thumb 0.9 0.0 Left Ulnar Anti Sensory (5th Digit) Wrist ? 2.3 3.3 <3.7 27.5 >15.0 Wrist 5th Digit 2.3 14.0 61 Right Ulnar Anti Sensory (5th Digit) Wrist ? 2.6 3.3 <3.7 19.6 >15.0 Wrist 5th Digit 2.6 14.0 54 Motor Summary Table ?Stim Site NR Onset (ms) Norm Onset (ms) O-P Amp (mV) Norm O-P Amp iAmp (mV) Amp (1st) (%) Site1 Site2 Delta-0 (ms) Dist (cm) Frankie (m/s) Norm Frankie (m/s) Left Median Motor (Abd Poll Brev) Wrist ? 5.2 <3.9 5.9 >4.5 7.6 100.0 Elbow Wrist 3.9 21.0 54 >45 Elbow ? 9.1 4.7 6.1 79.7 Right Median Motor (Abd Poll Brev) Wrist ? 5.7 <3.9 8.0 >4.5 10.0 100.0 Elbow Wrist 4.0 20.0 50 >45 Elbow ? 9.7 7.5 9.4 93.8 Left Ulnar Motor (Abd Dig Minimi) Wrist ? 3.0 <3.0 6.3 >5 8.2 100.0 B Elbow Wrist 3.3 18.0 55 >45 B Elbow ? 6.3 6.0 7.9 95.2 A Elbow B Elbow 1.5 10.0 67 >45 A Elbow ? 7.8 5.9 7.8 93.7 Right Ulnar Motor (Abd Dig Minimi) Wrist ? 2.7 <3.0 6.7 >5 8.1 100.0 B Elbow Wrist 3.9 19.0 49 >45 B Elbow ? 6.6 7.1 8.5 106.0 A Elbow B Elbow 1.4 10.0 71 >45 A Elbow ? 8.0 7.1 8.6 106.0 EMG ?Side Muscle Nerve Root Ins Act Fibs Psw Amp Dur Poly Recrt Int Pat Comment Right 1stDorInt Ulnar C8-T1 Nml Nml Nml Nml Nml 0 Nml Complete Right FlexCarRad Median C6-7 Nml Nml Nml Nml Nml 0 Nml Complete Right Biceps Musculocut C5-6 Nml Nml Nml Nml Nml 0 Nml Complete Right Triceps Radial C6-7-8 Nml Nml Nml Nml Nml 0 Nml Complete Right Deltoid Axillary C5-6 Nml Nml Nml Nml Nml 0 Nml Complete Left 1stDorInt Ulnar C8-T1 Nml Nml Nml Nml Nml 0 Nml Complete Left FlexCarRad Median C6-7 Nml Nml Nml Nml Nml 0 Nml Complete Left Biceps Musculocut C5-6 Nml Nml Nml Nml Nml 0 Nml Complete Left Triceps Radial C6-7-8 Nml Nml Nml Nml Nml 0 Nml Complete Left Deltoid Axillary C5-6 Nml Nml Nml Nml Nml 0 Nml Complete FINDINGS: Bilateral median motor nerves showed prolonged distal latency, normal amplitude and normal conduction velocity. Right median sensory nerve showed prolonged peak latency and small amplitude. Left median sensory nerve showed prolonged peak latency. All other nerves tested were within normal. Concentric needle EMG was performed in selected muscles of the bilateral upper extremities. Study did not reveal signs of electric abnormalities as shown in the table below. IMPRESSION: 1. This is an abnormal study. 2. There is electrodiagnostic evidence for bilateral moderate-severe median neuropathy at the wrist, consistent with carpal tunnel syndrome. 3. There is no electrodiagnostic evidence for ulnar neuropathy, brachial plexopathy, or cervical radiculopathy. Thank you for your kind referral. Josey Thurman MD, JANENE Board Certified, [place] [employer] and [employer] (ABPMR) Board Certified, [place] [employer] Electro[employer] (ABEM) CODIN [id number] x 2 MTDD
== END 2024-01-30 13:50 | disposition home or self-care (01) ==
LOC: HO.NEURO 13:49
PROVIDERS: PCP Internal Medicine; Visit Provider Physician Assistant
DX: R20.0 Anesthesia of skin (principal); R20.2 Paresthesia of skin
CPT/HCPCS: 95886; 95911

== ENCOUNTER → 2024-01-30 13:52 | Outpatient (BNV) | payer MEDICARE, OTHER, SELFPAY | PROVIDERS: PCP Internal Medicine; Visit Provider Physical Medicine & Rehabilitation | DX: G56.03 Carpal tunnel syndrome, bilateral upper limbs (principal); G56.13 Other lesions of median nerve, bilateral upper limbs | CPT/HCPCS: 95886; 95911 ==

== ENCOUNTER 2024-02-10 10:24 | Outpatient (AMB) | payer MEDICARE, OTHER, SELFPAY ==
[2024-02-10 10:46] VITALS: BMI 53.1
--- NOTE | 2024-02-10 10:46 | A.OFFVIS_ITS ---
Intake Vital Signs 02/10/24 10:46 Height 5 ft 1 in Weight 281 lb BMI 53.1 Intake Visit Reasons: ov- EMG review and discuss surgery Intake Note: Gina 63 yr old female presents today for his follow up visit for her EMG review and to discuss surgical intervention. States she was seen with Alfredo granger who gave her bilateral hand braces to wear at night time but symptoms have not improved. She would like to start with her left hand. Allergies Adhesive Bandages Allergy (Unknown, Verified 02/10/24 10:50) rash adhesive tape [TAPE,ADHESIVE] Allergy (Unknown, Verified 02/10/24 10:50) RASH amlodipine Allergy (Unknown, Verified 02/10/24 10:50) edema atenolol Allergy (Unknown, Verified 02/10/24 10:50) Bradycardia bisoprolol [From Zebeta] Allergy (Unknown, Verified 02/10/24 10:50) Diarrhea labetalol Allergy (Unknown, Verified 02/10/24 10:50) n/a latex [LATEX] Allergy (Unknown, Verified 02/10/24 10:50) RASH semaglutide [From Ozempic] Adverse Reaction (Intermediate, Verified 02/10/24 10:50) Diarrhea vicodin Allergy (Unknown, Uncoded 02/10/24 10:50) heart palpitation HPI ov- EMG review and discuss surgery HPI Details Gina is a 63 year old right hand dominant Diabetic woman who presents for a NCS review of her bilateral hand numbness, L>R. She complains of numbness in the thumb, index, and middle fingers bilaterally, L>R. Symptoms intermittent, but daily, worse at night. She found little relief from bilateral wrist splints at night. She says her Diabetes is well-controlled. She is seen today in a wheelchair and says she has spinal stenosis and dense numbness in her bilateral feet & legs, which makes it very difficult for her to stand and walk around. She walks using a roller walker when needed. She says she sleeps in a recliner at home [facility] Medical History Bunion of right foot Hyperglycemia Morbid obesity Foot callus Neuropathy Edema Urinary retention Plantar fasciitis Obesity TONI on CPAP Osteoarthritis Spinal stenosis Hypertension Surgical History H/O foot surgery History of tonsillectomy H/O colonoscopy History of lumbar surgery Family History Father History of heart attack Mother HTN (hypertension) Stroke Brother Stomach cancer Brother History of heart attack HTN (hypertension) Diabetes mellitus Lung cancer Brother Bladder cancer Heart attack Social History Housing: House Alcohol intake: never Patient Tobacco Use Status: Never used Tobacco e-Cigarette/Vaping Use: Never Used Second Hand Smoke Exposure: No Current occupational status: disabled Current occupation: right hand dominant Cognitive needs: No Hearing needs: No Vision needs: Yes Review of Systems Const All systems reviewed & are unremarkable except as noted in HPI and below Physical Exam Vital Signs: BMI result Body Mass Index 53.1 Const General: cooperative, healthy appearing and no acute distress Orientation/consciousness: patient oriented x3 HEENT Head: Yes normocephalic and Yes atraumatic Eyes EOM: EOMs intact bilaterally Resp Effort & Inspection: normal respiratory effort and able to speak in complete sentences Cardio Jugular venous distension: no JVD Skin General skin exam: turgor normal Rashes: no rashes Neuro General: patient oriented x3 Extrem Other: Evaluation of Bilateral Upper Extremity: The patient is alert, oriented, and in no acute distress The patient is 281 lb and 5 ft 1 in tall. She is in a motorized wheelchair. Neuro: Median, Ulnar, Radial nerves motor and sensory intact and sensation is normal to the tips of all digits No thenar or intrinsic wasting Good APB muscle belly firing and good finger cross Vascular: Cap refill brisk ROM: She can make a fist and extend all her digits Skin: No lacerations or abrasions. General: No Ecchymosis. No Erythema or evidence of infection. Nerve Conduction study: IMPRESSION: 1. This is an abnormal study. 2. There is electrodiagnostic evidence for bilateral moderate-severe median neuropathy at the wrist, consistent with carpal tunnel syndrome. 3. There is no electrodiagnostic evidence for ulnar neuropathy, brachial plexopathy, or cervical radiculopathy. Josey Thurman MD, JANENE 01/30/24 Psych Appearance: grossly normal Affect: normal affect Attitude: cooperative Assessment & Plan Assessment & Plan (1) Carpal tunnel syndrome of right wrist: Code(s): G56.01 - Carpal tunnel syndrome, right upper limb (2) Carpal tunnel syndrome of left wrist: Code(s): G56.02 - Carpal tunnel syndrome, left upper limb (3) Wheelchair dependent: Code(s): Z99.3 - Dependence on wheelchair (4) DM type 2 (diabetes mellitus, type 2): Comment: diet controlled, intolerant to Ozempic (diarrhea) , A1C 5.4 10/02 Code(s): E11.9 - Type 2 diabetes mellitus without complications (5) Spinal stenosis: Code(s): M48.00 - Spinal stenosis, site unspecified (6) Neuropathy: Code(s): G62.9 - Polyneuropathy, unspecified Plan Assessment & Plan: 1. Left carpal tunnel syndrome, moderate-severe Symptoms intermittent, but daily, worse at night This is her primary complaint today 2. Right carpal tunnel syndrome, moderate-severe Symptoms intermittent, but daily, worse at night I educated her about this condition I discussed operative and non-operative treatment options The patient would like to proceed with surgery, beginning with the left side. She will follow up to discuss treatment for her right hand when she has recovered from surgery The risks and benefits of operative treatment were discussed with the patient and the patient wishes to proceed with surgery. These risks include, but are not limited to risk of damage to blood vessels, nerves, tendons, infection, recurrence, incomplete relief of preoperative symptoms, persistent pain, po ssible need for further surgery and the risks associated with regional blocks and anesthesia. The plan is to take the patient to the operating room sometime in the next few weeks for the following procedures: 1. Left carpal tunnel release, under local All of the preoperative paperwork including the consent was reviewed today. All the patient's questions were answered. The patient understands that they will be contacted by our medical scheduler soon to schedule this procedure She denies blood thinners, asthma, heart, lung, kidney issues She is a Diabetic, her most recent HgA1c was 5.7% on 01/14/24 She has spinal stenosis & dense numbness in her bilateral LEs, and primarily uses an electric wheelchair for mobility. She understands she will need to transfer herself between her wheelchair & a hospital bed in order to proceed with surgery. Scribed for Yvette Camacho MD by Serjio Varela, medical device, on 02/10/24 at 11:15 AM, EST. Coding Level of Care Code New Pt Level 4 (75084) Diagnoses Carpal tunnel syndrome of right wrist G56.01 Carpal tunnel syndrome of left wrist G56.02 Wheelchair dependent Z99.3 DM type 2 (diabetes mellitus, type 2) E11.9 Spinal stenosis M48.00 Neuropathy G62.9
== END 2024-02-10 11:47 | disposition home or self-care (01) ==
PROVIDERS: PCP Internal Medicine; Visit Provider Orthopaedic Surgery
DX: G56.03 Carpal tunnel syndrome, bilateral upper limbs (principal); Z99.3 Dependence on wheelchair; E11.9 Type 2 diabetes mellitus without complications; M48.00 Spinal stenosis, site unspecified; G62.9 Polyneuropathy, unspecified
CPT/HCPCS: 99204

== ENCOUNTER → 2024-02-10 10:24 | Outpatient (BNVA) | payer MEDICARE, OTHER, SELFPAY | PROVIDERS: PCP Internal Medicine; Visit Provider Orthopaedic Surgery | DX: G56.03 Carpal tunnel syndrome, bilateral upper limbs (principal); E11.40 Type 2 diabetes mellitus with diabetic neuropathy, unspecified; M48.00 Spinal stenosis, site unspecified; Z99.3 Dependence on wheelchair | CPT/HCPCS: 99202 ==

== ENCOUNTER 2024-03-08 13:15 | Outpatient (AMB) | payer MEDICARE, OTHER, SELFPAY ==
--- NOTE | 2024-03-08 13:52 | MHC.OFFVIS ---
Vital Signs 03/08/24 13:58 Height 5 ft 1 in Weight 281 lb BMI 53.1 BP 124/70 Blood Pressure Location Lt brachial Position Sitting Pulse 56 Pulse Source Pulse Oximeter Pulse Oximetry (%) 96 Oxygen Delivery Method Room Air Intake Visit Reasons: 4 mo f/u - CONF w/address Intake Note: Patient presents 4 months f/u. Allergies Adhesive Bandages Allergy (Unknown, Verified 03/08/24 13:56) rash adhesive tape [TAPE,ADHESIVE] Allergy (Unknown, Verified 03/08/24 13:56) RASH amlodipine Allergy (Unknown, Verified 03/08/24 13:56) edema atenolol Allergy (Unknown, Verified 03/08/24 13:56) Bradycardia bisoprolol [From Zebeta] Allergy (Unknown, Verified 03/08/24 13:56) Diarrhea labetalol Allergy (Unknown, Verified 03/08/24 13:56) n/a latex [LATEX] Allergy (Unknown, Verified 03/08/24 13:56) RASH semaglutide [From Ozempic] Adverse Reaction (Intermediate, Verified 03/08/24 13:56) Diarrhea vicodin Allergy (Unknown, Uncoded 02/10/24 10:50) heart palpitation HPI Comments Details: 63 y/o female patient with TONI on BiPAP presents for follow up visit. Pt reports that she has received new BiPAP. Her home care company [employer]. Pt's last sleep study was January,. The sleep study result was significant for a severe degree of sleep apnea. The AHI was 80/hr and oxygen ramiro was 78%. She is on BiPAP . The compliance and therapy response (11/28/23-02/25/24) reviewed. The usage days 97 % and the average usage hours 4 hrs. The residual AHI was 0.8/hr. She sleeps well with her BiPAP, sometimes fall asleep her recliner and forgets to put BiPAP on, wakes up in the middle of night and put it on. She has rested sleep and alert and not dozing off during daytime. [facility] Medical History Bunion of right foot Hyperglycemia Morbid obesity Foot callus Neuropathy Edema Urinary retention Plantar fasciitis Obesity TONI on CPAP Osteoarthritis Spinal stenosis Hypertension Surgical History H/O foot surgery History of tonsillectomy H/O colonoscopy History of lumbar surgery Family History Father History of heart attack Mother HTN (hypertension) Stroke Brother Stomach cancer Brother History of heart attack HTN (hypertension) Diabetes mellitus Lung cancer Brother Bladder cancer Heart attack Social History Housing: House Alcohol intake: never Patient Tobacco Use Status: Never used Tobacco e-Cigarette/Vaping Use: Never Used Second Hand Smoke Exposure: No Current occupational status: disabled Current occupation: right hand dominant Cognitive needs: No Hearing needs: No Vision needs: Yes Review of Systems Const All systems reviewed & are unremarkable except as noted in HPI and below Physical Exam Vital Signs: Last Vital Signs Pulse 56 03/08/24 13:58 BP 124/70 03/08/24 13:58 Pulse Ox 96 03/08/24 13:58 Oxygen Delivery Method Room Air 03/08/24 13:58 BMI result Body Mass Index 53.1 Const General: cooperative Nutritional Appearance: obese Orientation/consciousness: patient oriented x3 Limitations: wheelchair Neck Neck: Yes full ROM and Yes supple Resp Effort & Inspection: normal respiratory effort and able to speak in complete sentences Neuro General: patient oriented x3 Cranial nerves: Yes CN's II-XII intact bilaterally Cognition (Neuro): normal cognition Psych Appearance: grossly normal Mental Status: mental status grossly normal Speech and movement: Normal speech and movement present Assessment & Plan Assessment & Plan (1) TONI (obstructive sleep apnea): Comment: Severe degree of sleep apnea and On BiPAP Code(s): G47.33 - Obstructive sleep apnea (adult) (pediatric) Category: Medical Plan Continue to use BiPAP as patient experiences good clinical effects, sleep quality and daytime sleepiness has improved. Continue to follow up with wt management. Coding Level of Care Code Est Pt Level 3 (53446) Diagnoses TONI (obstructive sleep apnea) G47.33
[2024-03-08 13:58] VITALS: BP 124/70; PULSE 56; O2SAT 96; BMI 53.1
== END 2024-03-08 14:15 | disposition home or self-care (01) ==
PROVIDERS: PCP Internal Medicine; Visit Provider Nurse Practitioner Family
DX: G47.33 Obstructive sleep apnea (adult) (pediatric) (principal)
CPT/HCPCS: 99213

== ENCOUNTER → 2024-03-08 13:15 | Outpatient (BNVA) | payer MEDICARE, OTHER, SELFPAY | PROVIDERS: PCP Internal Medicine; Visit Provider Nurse Practitioner Family | DX: G47.33 Obstructive sleep apnea (adult) (pediatric) (principal) | CPT/HCPCS: 99212 ==

== ENCOUNTER 2024-03-18 11:04 | Day surgery (SDC) | payer MEDICARE, OTHER, SELFPAY ==
[2024-03-18 11:28] VITALS: BMI 54.0
--- NOTE | 2024-03-18 11:30 | PC.NURSE ---
pt wants right side dpme first. Dr. Camacho at bedside, to change order/24 h note
--- NOTE | 2024-03-18 11:35 | MHC.SHP ---
Pre-Procedural Eval Section A - 24 Hr Update-Section A only Date of Service: 03/18/24 The patient is an INPATIENT: No Changes since office visit: No Cold of Flu in the past 2 weeks, No New Medical Problems, No Changes in Medication and No Patient answered all questions The patient has been examined within 24 hours of the surgical procedure. The History & Physical has been completed within 30 days and I have reviewed it.: Yes Section B - Complete if H&P > 30 days Chief Complaint: Carpal tunnel syndrome, right upper limb Allergies: Allergies Allergy/AdvReac Type Severity Reaction Status Date / Time Adhesive Bandages Allergy Unknown rash Verified 03/08/24 13:56 adhesive tape [TAPE,ADHESIVE] Allergy Unknown RASH Verified 03/08/24 13:56 amlodipine Allergy Unknown edema Verified 03/08/24 13:56 atenolol Allergy Unknown Bradycardia Verified 03/08/24 13:56 bisoprolol [From Zebeta] Allergy Unknown Diarrhea Verified 03/08/24 13:56 labetalol Allergy Unknown n/a Verified 03/08/24 13:56 latex [LATEX] Allergy Unknown RASH Verified 03/08/24 13:56 semaglutide [From Ozempic] AdvReac Intermediate Diarrhea Verified 03/08/24 13:56 vicodin Allergy Unknown heart Uncoded 02/10/24 10:50 palpitation Exam Exam Comment: Patient with right and left carpal tunnel syndrome. The patient wishes to proceed with right carpal tunnel release today rather than left. Patient says that she already coordinated this with my office. She does have some decreased subjective sensation in the median nerve distribution of the right hand today. We will sensation in the ulnar nerve distribution Plan Diagnosis/Plan: Change I have reviewed the history and physical and performed a pertinent physical examination on my patient. No changes have occurred unless specified. The risks and benefits of operative treatment were discussed with the patient and the patient wishes to proceed with surgery. These risks include, but are not limited to risk of damage to blood vessels, nerves, tendons, infection, recurrence, incomplete relief of preoperative symptoms, persistent pain, possible need for further surgery and the risks associated with regional blocks and anesthesia. The plan is to take the patient to the operating room today for the following procedures: 1. Right carpal tunnel release 2. [ ] All of the preoperative paperwork including the consent was filled out today. All the patient's questions were answered. Time Spent With Patient Time: Total time managing care of this patient today ____ minutes.
--- NOTE | 2024-03-18 11:38 | W.PM.OPN ---
Operative Note Operative Note Date of Service: 03/18/24 Narrative: Preop diagnosis: 1. Right Carpal tunnel syndrome Postop diagnosis: same Procedure: 1. Right Carpal tunnel release Surgeon: Yvette Camacho MD Anesthesia: local block using 1% lidocaine with epinephrine Findings: Thickened transverse carpal ligament. EBL: Less than 5 mL Specimens: None Complications: None Disposition: Brought to recovery room in stable condition Plan: Follow-up for 10-14 days for wound check and suture removal Indications: The patient is 63 years old, with right carpal tunnel syndrome that has been unresponsive to nonoperative management. The risks and benefits of operative treatment including but not limited to risk of damage to blood vessels, nerves, tendons, infection, persistent pain, persistent symptoms, or possible need for additional surgery were discussed with the patient and the patient wishes to proceed with surgery. Procedure: Once consent was obtained a local block was performed using a combination of 1% lidocaine with epinephrine. The patient was then brought back to the operating suite and placed on the operative table in supine position. The right upper extremity was prepped and draped in a standard surgical fashion. Once assured that we had a good block, a 2.0 cm longitudinal incision was made centered over the carpal tunnel. The incision was made through the skin to the subcutaneous tissues using a #15 blade. Dissection was made down to the level of the transverse carpal ligament with care being taken to protect the palmar cutaneous nerve. Once the transverse carpal ligament was clearly visualized, a longitudinal incision was made in the transverse carpal ligament 1st using a #15 blade, then using tenotomy scissors under direct visualization. Care was taken to look for and protect the motor branch of the median nerve when seen in this area. Once satisfied with our carpal tunnel release the wound was copiously irrigated with normal saline and hemostasis was obtained with a brief period of local pressure. The skin edges were reapproximated with some 5.0 nylon suture material and a sterile dressing was applied. The patient appears to have tolerated the procedure well and with no complications. All digits were well vascularized at the conclusion of the case.
[2024-03-18 13:28] VITALS: BP 115/54; PULSE 60; RESP 16; TEMP 36.1; O2SAT 96
== END 2024-03-18 14:01 | disposition home or self-care (01) ==
PROVIDERS: PCP Internal Medicine; Visit Provider Orthopaedic Surgery
PROC: (CPT 64721; principal; 2024-03-18 11:30)
DX: G56.01 Carpal tunnel syndrome, right upper limb (principal); R20.0 Anesthesia of skin; E11.9 Type 2 diabetes mellitus without complications; G62.9 Polyneuropathy, unspecified; I10 Essential (primary) hypertension; G47.33 Obstructive sleep apnea (adult) (pediatric); Z99.89 Dependence on other enabling machines and devices; M48.00 Spinal stenosis, site unspecified; Z99.3 Dependence on wheelchair; E66.01 Morbid (severe) obesity due to excess calories; Z68.43 Body mass index [BMI] 50.0-59.9, adult; Z88.8 Allergy status to other drugs, medicaments and biological substances; L23.1 Allergic contact dermatitis due to adhesives; Z91.040 Latex allergy status
CPT/HCPCS: 64721; J0171

== ENCOUNTER → 2024-03-18 11:04 | Outpatient (BNV) | payer MEDICARE, OTHER, MEDICAID, SELFPAY | PROVIDERS: PCP Internal Medicine; Visit Provider Orthopaedic Surgery | DX: G56.01 Carpal tunnel syndrome, right upper limb (principal) | CPT/HCPCS: 64721 ==

== ENCOUNTER 2024-03-31 12:47 | Outpatient (AMB) | payer MEDICARE, OTHER, SELFPAY ==
--- NOTE | 2024-03-31 12:55 | A.OFFVIS_ITS ---
Intake Visit Reasons: PO-RT CTR 03/18/24 AR Intake Note: Gina 63 year old female who presents today for her PO visit for her right hand CTR 03/18/24 AR. States symptoms have improved and is doing well however she does have slight tingling sensation. Sutures removed and steri strips applied. Allergies Adhesive Bandages Allergy (Unknown, Verified 03/31/24 13:04) rash adhesive tape [TAPE,ADHESIVE] Allergy (Unknown, Verified 03/31/24 13:04) RASH amlodipine Allergy (Unknown, Verified 03/31/24 13:04) edema atenolol Allergy (Unknown, Verified 03/31/24 13:04) Bradycardia bisoprolol [From Zebeta] Allergy (Unknown, Verified 03/31/24 13:04) Diarrhea labetalol Allergy (Unknown, Verified 03/31/24 13:04) n/a latex [LATEX] Allergy (Unknown, Verified 03/31/24 13:04) RASH semaglutide [From Ozempic] Adverse Reaction (Intermediate, Verified 03/31/24 13:04) Diarrhea vicodin Allergy (Unknown, Uncoded 03/31/24 13:04) heart palpitation HPI HPI PO-RT CTR 03/18/24 AR: Details: Gina is a 63 year old right hand dominant Diabetic woman who returns S/P right carpal tunnel release, DOS: 03/18/24 She says she is doing well and her sensation has improved. She has some slight tingling in her fingertips and good relief of her nighttime symptoms & of her occasional pain. She is happy with the results of her surgery. She was initially scheduled for a left carpal tunnel release, but changed her mind to have her right side done first. She complains of numbness in the thumb, index, and middle fingers of her left hand Symptoms intermittent, but daily, worse at night. She found little relief from bilateral wrist splints at night. She says her Diabetes is well-controlled. She denies any medication and says this is managed through her diet. She is seen today in a wheelchair and says she has spinal stenosis and dense numbness in her bilateral feet & legs, which makes it very difficult for her to stand and walk around. She walks using a roller walker when needed. She says she sleeps in a recliner at home [facility] Medical History Bunion of right foot Hyperglycemia Morbid obesity Foot callus Neuropathy Edema Urinary retention Plantar fasciitis Obesity TONI on CPAP Osteoarthritis Spinal stenosis Hypertension Surgical History H/O foot surgery History of tonsillectomy H/O colonoscopy History of lumbar surgery Family History Father History of heart attack Mother HTN (hypertension) Stroke Brother Stomach cancer Brother History of heart attack HTN (hypertension) Diabetes mellitus Lung cancer Brother Bladder cancer Heart attack Social History Housing: House Alcohol intake: never Patient Tobacco Use Status: Never used Tobacco e-Cigarette/Vaping Use: Never Used Second Hand Smoke Exposure: No Current occupational status: disabled Current occupation: right hand dominant Cognitive needs: No Hearing needs: No Vision needs: Yes Review of Systems Const All systems reviewed & are unremarkable except as noted in HPI and below Physical Exam Const General: no acute distress and alert Orientation/consciousness: patient oriented x3 Neuro General: patient oriented x3 Extrem Other: The patient was alert oriented and in no acute distress The incision is healing well with no erythema drainage or evidence of infection. Sutures removed and Steri-Strips applied She can make a fist and extend all her digits. Sensation is normal in the right median nerve distribution. Normal sensation to the tips of all digits of her left hand. No intrinsic or thenar wasting bilaterally. With regards to both hands she can make a fist and extend all of her digits. Cap refill is brisk Nerve Conduction study: IMPRESSION: 1. This is an abnormal study. 2. There is electrodiagnostic evidence for bilateral moderate-severe median neuropathy at the wrist, consistent with carpal tunnel syndrome. 3. There is no electrodiagnostic evidence for ulnar neuropathy, brachial plexopathy, or cervical radiculopathy. Josey Thurman MD, JANENE 01/30/24 Psych Appearance: grossly normal Affect: normal affect Attitude: cooperative Assessment & Plan Assessment & Plan (1) Carpal tunnel syndrome of right wrist: Code(s): G56.01 - Carpal tunnel syndrome, right upper limb Category: Medical (2) Carpal tunnel syndrome of left wrist: Code(s): G56.02 - Carpal tunnel syndrome, left upper limb Category: Medical (3) Wheelchair dependent: Code(s): Z99.3 - Dependence on wheelchair Category: Medical (4) DM type 2 (diabetes mellitus, type 2): Comment: diet controlled, intolerant to Ozempic (diarrhea) , A1C 5.4 10/02 Code(s): E11.9 - Type 2 diabetes mellitus without complications Category: Medical (5) Spinal stenosis: Code(s): M48.00 - Spinal stenosis, site unspecified Category: Medical (6) Neuropathy: Code(s): G62.9 - Polyneuropathy, unspecified Category: Medical Plan Assessment & Plan: 1. Right carpal tunnel syndrome, S/P release DOS: 03/18/24 Pre-operative symptoms intermittent, but daily, worse at night Now with normal sensation and good resolution of her nighttime symptoms The patient appears to be doing well post-operatively I educated her about the post-operative course I discussed activity modifications, she is to lift nothing heavier than a cellphone for the next two weeks She will perform gentle ROM exercises at home She should avoid any underwater activities for the next 5 days She should gently massage about the incision site to reduce the risk of hypersensitivity 2. Left carpal tunnel syndrome, moderate-severe Symptoms intermittent, but daily, worse at night I educated her about this condition I discussed operative and non-operative treatment options The patient would like to proceed with surgery, beginning with the left side. She will follow up to discuss treatment for her right hand when she has recovered from surgery The risks and benefits of operative treatment were discussed with the patient and the patient wishes to proceed with surgery. These risks include, but are not limited to risk of damage to blood vessels, nerves, tendons, infection, recurrence, incomplete relief of preoperative symptoms, persistent pain, possible need for further surgery and the risks associated with regional blocks and anesthesia. The plan is to take the patient to the operating room sometime in the next few weeks for the following procedures: 1. Left carpal tunnel release, under local All of the preoperative paperwork including the consent was reviewed today. All the patient's questions were answered. The patient understands that they will be contacted by our podiatric technician soon to schedule this procedure She denies blood thinners, asthma, heart, lung, kidney issues She is a Diabetic, her most recent HgA1c was 5.7% on 01/14/24. She has spinal stenosis & dense numbness in her bilateral LEs, and primarily uses an electric wheelchair for mobility. She understands she will need to transfer herself between her wheelchair & a hospital bed in order to proceed with surgery. Scribed for Yvette Camacho MD by Serjio Varela medical staff services coordinator, on 03/31/24 at 1:35 PM, EST. Scribe Plan - Not visible on output: Scribed for Yvette Camacho MD by Serjio Varela medical staff services coordinator, on [ ] at [ ], EST. Coding Level of Care Code Est Pt Level 3 (47041) Diagnoses Carpal tunnel syndrome of right wrist G56.01 Carpal tunnel syndrome of left wrist G56.02 Wheelchair dependent Z99.3 DM type 2 (diabetes mellitus, type 2) E11.9 Spinal stenosis M48.00 Neuropathy G62.9
== END 2024-03-31 13:42 | disposition home or self-care (01) ==
PROVIDERS: PCP Internal Medicine; Visit Provider Orthopaedic Surgery
DX: G56.03 Carpal tunnel syndrome, bilateral upper limbs (principal); Z99.3 Dependence on wheelchair; E11.42 Type 2 diabetes mellitus with diabetic polyneuropathy; M48.00 Spinal stenosis, site unspecified
CPT/HCPCS: 99024

== ENCOUNTER → 2024-03-31 12:47 | Outpatient (BNVA) | payer MEDICARE, OTHER, SELFPAY | PROVIDERS: PCP Internal Medicine; Visit Provider Orthopaedic Surgery | DX: Z48.02 Encounter for removal of sutures (principal); G56.03 Carpal tunnel syndrome, bilateral upper limbs; G62.9 Polyneuropathy, unspecified; M48.00 Spinal stenosis, site unspecified; E11.9 Type 2 diabetes mellitus without complications; Z99.3 Dependence on wheelchair | CPT/HCPCS: 99212 ==

== ENCOUNTER 2024-04-07 09:57 | Outpatient (REF) | payer MEDICARE, MEDICAID, OTHER, SELFPAY ==
[2024-04-07 13:25] LABS: MANUAL DIFF FLAG NO
[2024-04-07 13:31] LABS: Basophils Percent Auto 0.4 % (0-2); Eosinophils Absolute Auto 0.5 X10*3/uL (0.0-0.4); Eosinophils Percent Auto 7.2 % (0-4); Hematocrit 35.7 % (37.0-47.0); Hemoglobin 11.6 g/dl (12.0-16.0); Imm Gran Abs Auto 0.04 X10*3/uL (0.00-0.03); Imm Gran Pct Auto 0.6 % (0.0-0.4); Lymphocytes Absolute Auto 1.9 X10*3/uL (1.2-4.9); Lymphocytes Percent Auto 25.8 % (20-40); Mean Corpuscular HGB Conc 32.5 g/dl (31.0-35.0); Mean Corpuscular Hemoglobin 29.8 pg (27.0-33.0); Mean Corpuscular Volume 91.8 fL (80.0-98.0); Mean Platelet Volume 11.6 fL (9.4-12.3); Monocytes Absolute Auto 0.9 X10*3/uL (0.1-1.2); Monocytes Percent Auto 11.9 % (2-11); Neutrophils Absolute Auto 3.9 x10*3/uL (2.0-8.3); Neutrophils Percent Auto 54.1 % (45-73); Platelet Count 210 X10*3/uL (160-400); Red Blood Count 3.89 X10*6/uL (4.20-5.50); Red Cell Distribution Width 13.5 % (11.0-16.0); White Blood Count 7.2 X10*3/uL (4.8-10.8)
[2024-04-07 13:42] LABS: Alanine Aminotransferase 20 U/L (0-31); Albumin Level 3.9 g/dL (3.5-5.0); Alkaline Phosphatase 83 U/L (39-117); Anion Gap 13 (12-20); Aspartate Amino Transferase 16 U/L (5-31); Bilirubin Total 0.5 mg/dL (0.0-1.0); Blood Urea Nitrogen 31 mg/dL (9-16); Calcium 9.5 mg/dL (8.4-10.2); Carbon Dioxide 28 mmol/L (22-29); Chloride 104 mmol/L (96-108); Cholesterol 146 mg/dL (<200); Estimated Glomerular Filt Rate 57; Glucose Fasting 98 mg/dL (60-99); HDL Cholesterol 33 mg/dL (>40); LDL Cholesterol Calculated 67 mg/dL (<100); Potassium 4.5 mmol/L (3.3-5.1); Sodium 140 mmol/L (135-145); Total Protein 6.7 g/dL (6.5-8.0); Triglycerides 234 mg/dL (<150)
[2024-04-07 13:45] LABS: Estimated Average Glucose 111 mg/dL; Hemoglobin A1c % 5.5 % (<6.0)
[2024-04-07 14:40] LABS: Creatinine Urine 25.05 mg/dL; Microalbum/Creatinine Ratio Ur 43.9 ug/mg cr (<30)
== END 2024-04-07 09:58 | disposition home or self-care (01) ==
LOC: HO.HMGCLDS 09:57
PROVIDERS: PCP Internal Medicine; Visit Provider Internal Medicine
DX: E11.9 Type 2 diabetes mellitus without complications (principal); E78.2 Mixed hyperlipidemia; E66.01 Morbid (severe) obesity due to excess calories; I10 Essential (primary) hypertension
CPT/HCPCS: 36415; 80053; 80061; 82043; 82570; 83036; 85025

== ENCOUNTER 2024-04-14 11:41 | Outpatient (AMB) | payer MEDICARE, OTHER, MEDICAID, SELFPAY ==
--- NOTE | 2024-04-14 11:55 | A.OFFPC_ITS ---
Vital Signs 04/14/24 11:56 Height 5 ft 1 in Weight 286 lb BMI 54.0 BP 110/66 Blood Pressure Location Lt brachial Position Sitting Pulse 61 Pulse Source Pulse Oximeter Pulse Oximetry (%) 98 Oxygen Delivery Method Room Air Intake Visit Reasons: 3 month follow up Intake Note: Pt is here today for 3 months follow up visit on labs. Allergies Adhesive Bandages Allergy (Unknown, Verified 04/14/24 11:58) rash adhesive tape [TAPE,ADHESIVE] Allergy (Unknown, Verified 03/31/24 13:04) RASH amlodipine Allergy (Unknown, Verified 04/14/24 11:58) edema atenolol Allergy (Unknown, Verified 04/14/24 11:58) Bradycardia bisoprolol [From Zebeta] Allergy (Unknown, Verified 04/14/24 11:58) Diarrhea labetalol Allergy (Unknown, Verified 04/14/24 11:58) n/a latex [LATEX] Allergy (Unknown, Verified 04/14/24 11:58) RASH semaglutide [From Ozempic] Adverse Reaction (Intermediate, Verified 04/14/24 11:58) Diarrhea vicodin Allergy (Unknown, Uncoded 04/14/24 11:58) heart palpitation Medication List - Last Reconciled 04/14/24 by Yolanda Jack MD acetaminophen ER 1,300 mg PO Q12H aspirin 81 mg PO DAILY carvedilol 6.25 mg PO BID catheter (Bardex All-Silicone Duncan Catheter) As directed celecoxib 200 mg PO BID cholecalciferol (vitamin D3) 25 mcg PO DAILY clotrimazole-betamethasone 1-0.05 % 1 appl topical BID PRN furosemide 40 mg PO DAILY gabapentin 900 mg (3 x 300 mg) PO BEDTIME hydralazine 50 mg PO BID irbesartan 300 mg PO DAILY magnesium oxide 500 mg PO DAILY multivitamin 1 tab PO DAILY nystatin (Nystop) 1 appl topical BID omega 6-[id number]-ycp-fish oil 1,000 mg (120 mg-180 mg) (Fish Oil) 1 cap PO DAILY omeprazole 20 mg PO DAILY oxycodone-acetaminophen 5-325 mg 1 tab PO Q6H PRN pregabalin 150 mg PO BID rosuvastatin 10 mg PO BEDTIME spironolactone 25 mg PO DAILY terazosin 20 mg (2 x 10 mg) PO DAILY triamcinolone acetonide 0.1% 1 appl topical DAILY PRN Tobacco use date assessed: 04/14/24 Dental Screening Dental Screen Date: 12/02/23 HPI 3 month follow up HPI Details Pt presents for f/u HTN, hyperlipid, diet-controlled diabetes chronic peripheral neuropathy and morbid obesity. Patient has been in weight management, followed by weight watchers for the last year and lost 50 lb but has not been able to lose more weight for the last 2 months despite decreasing caloric intake. Patient is not able to exercise due to her severe bilateral lower extremity neuropathy and she is a wheelchair bound. Patient tried Ozempic which caused diarrhea. [facility] Medical History (Updated 04/14/24 @ 13:35 by Yolanda Jack MD) Bunion of right foot Hyperglycemia Morbid obesity Foot callus Neuropathy Edema Urinary retention Plantar fasciitis Obesity TONI on CPAP Osteoarthritis Spinal stenosis Hypertension Surgical History (Updated 04/14/24 @ 11:59 by Elizabeth Bullock [facility]) History of carpal tunnel surgery H/O foot surgery History of tonsillectomy H/O colonoscopy History of lumbar surgery Family History Father History of heart attack Mother HTN (hypertension) Stroke Brother Stomach cancer Brother History of heart attack HTN (hypertension) Diabetes mellitus Lung cancer Brother Bladder cancer Heart attack Social History Housing: House Alcohol intake: never Patient Tobacco Use Status: Never used Tobacco e-Cigarette/Vaping Use: Never Used Second Hand Smoke Exposure: No service: No Current occupational status: disabled Current occupation: right hand dominant Cognitive needs: No Hearing needs: No Vision needs: Yes Questionnaire Thrive Questionnaire Date Thrive assessed: 12/02/23 AUDIT C Alcohol Use Questionnaire (AUDIT-C) 1. How often do you have a drink containing alcohol?: Never 3. How often do you have six or more drinks on one occasion?: Never Total Score: 0 GIANNA-7 AMB Questionnaire GIANNA-7 Date GIANNA - 7 assessed: 12/02/23 Source: Developed by Drs. Renan Amor, Yoselin Haines, Arnulfo Manzanares and colleagues, with an educational delia from [employer]. Review of Systems Const All systems reviewed & are unremarkable except as noted in HPI and below ENT Reports no additional complaints Card Reports no additional complaints Resp Reports no additional complaints GI Reports no additional complaints Reports no additional complaints Physical exam (Primary Care) Vital Signs: Last Vital Signs Pulse 61 04/14/24 11:56 BP 110/66 04/14/24 11:56 Pulse Ox 98 04/14/24 11:56 Oxygen Delivery Method Room Air 04/14/24 11:56 BMI result Body Mass Index 54.0 Tobacco/Smoking Status: Tobacco use Status Tobacco use date assessed 04/14/24 04/14/24 11:59 Patient Tobacco Use Status Never used Tobacco 04/14/24 11:59 e-Cigarette/Vaping Use Never Used 04/14/24 11:59 Thrive Assessment: Date of Thrive Assessment Date Thrive assessed 12/02/23 04/14/24 11:59 Const General: no acute distress Neck Neck: Yes supple Resp Effort & Inspection: normal respiratory effort Auscultation: clear to auscultation bilaterally Cardio Rhythm: regular rhythm Heart sounds: S1 normal heart sound present and S2 normal heart sound present GI Inspection: Yes normal to inspection Palpation (GI): Soft to palpation Assessment and Plan Assessment & Plan (1) DM type 2 (diabetes mellitus, type 2): Comment: diet controlled, intolerant to Ozempic (diarrhea) , A1C 5.4 10/02 Code(s): E11.9 - Type 2 diabetes mellitus without complications Plan: A1c is 5.7, continue ADA diet and decrease caloric intake (2) Obesity: Comment: In weight management program at [facility] Code(s): E66.9 - Obesity, unspecified Plan: Zepbound will be tried at the lowest dose for the 1st month and patient will report any side effects (3) Hypertension: Code(s): I10 - Essential (primary) hypertension Plan: Continue current medications (4) Mixed hyperlipidemia: Code(s): E78.2 - Mixed hyperlipidemia Plan: Continue statin (5) Neuropathy: Comment: Lower extremity weakness and sensory neuropathy Code(s): G62.9 - Polyneuropathy, unspecified Plan: Continue current Treatment Orders: Orders Comprehensive Met. Panel 6 Months E11.9 - Type 2 diabetes mellitus without complications, E66.01 - Morbid (severe) obesity due to excess calories, E66.9 - Obesity, unspecified, E78.2 - Mixed hyperlipidemia, I10 - Essential (primary) hypertension Hemoglobin A1c 6 Months E11.9 - Type 2 diabetes mellitus without complications, E66.01 - Morbid (severe) obesity due to excess calories, E66.9 - Obesity, unspecified, E78.2 - Mixed hyperlipidemia, I10 - Essential (primary) hypertension Lipid Panel 6 Months E11.9 - Type 2 diabetes mellitus without complications, E66.01 - Morbid (severe) obesity due to excess calories, E66.9 - Obesity, unspe cified, E78.2 - Mixed hyperlipidemia, I10 - Essential (primary) hypertension Complete Blood Count Auto Diff 6 Months E11.9 - Type 2 diabetes mellitus without complications, E66.01 - Morbid (severe) obesity due to excess calories, E66.9 - Obesity, unspecified, E78.2 - Mixed hyperlipidemia, I10 - Essential (primary) hypertension TSH reflex Free T4 6 Months E11.9 - Type 2 diabetes mellitus without complications, E66.01 - Morbid (severe) obesity due to excess calories, E66.9 - Obesity, unspecified, E78.2 - Mixed hyperlipidemia, I10 - Essential (primary) hypertension Medications: New tirzepatide (weight loss) (Zepbound) 2.5 mg (0.5 mL) subcut QWEEK 4 weeks 2 mL 0RF Coding Level of Care Code Est Pt Level 4 (49504) Complex EM visit Add On G2211 Diagnoses DM type 2 (diabetes mellitus, type 2) E11.9 Obesity E66.9 Hypertension I10 Mixed hyperlipidemia E78.2 Neuropathy G62.9
[2024-04-14 11:56] VITALS: BP 110/66; PULSE 61; O2SAT 98; BMI 54.0
== END 2024-04-14 13:36 | disposition home or self-care (01) ==
PROVIDERS: PCP Internal Medicine; Visit Provider Internal Medicine
DX: E11.42 Type 2 diabetes mellitus with diabetic polyneuropathy (principal); Z68.43 Body mass index [BMI] 50.0-59.9, adult; E66.9 Obesity, unspecified; I10 Essential (primary) hypertension; E78.2 Mixed hyperlipidemia; G62.9 Polyneuropathy, unspecified
CPT/HCPCS: 99214; G2211

== ENCOUNTER 2024-06-07 09:42 | Day surgery (SDC) | payer MEDICARE, OTHER, SELFPAY ==
[2024-06-07 10:55] VITALS: BP 147/53; PULSE 68; RESP 18; TEMP 36.7; O2SAT 96; BMI 54.0
--- NOTE | 2024-06-07 11:21 | MHC.SHP ---
Pre-Procedural Eval Section A - 24 Hr Update-Section A only Date of Service: 06/07/24 The patient is an INPATIENT: No Changes since office visit: No Cold of Flu in the past 2 weeks, No New Medical Problems, No Changes in Medication and No Patient answered all questions Section B - Complete if H&P > 30 days Chief Complaint: Carpal tunnel syndrome, left upper limb Allergies: Allergies Allergy/AdvReac Type Severity Reaction Status Date / Time Adhesive Bandages Allergy Unknown rash Verified 04/14/24 11:58 adhesive tape [TAPE,ADHESIVE] Allergy Unknown RASH Verified 03/31/24 13:04 amlodipine Allergy Unknown edema Verified 04/14/24 11:58 atenolol Allergy Unknown Bradycardia Verified 04/14/24 11:58 bisoprolol [From Zebeta] Allergy Unknown Diarrhea Verified 04/14/24 11:58 labetalol Allergy Unknown n/a Verified 04/14/24 11:58 latex [LATEX] Allergy Unknown RASH Verified 04/14/24 11:58 semaglutide [From Ozempic] AdvReac Intermediate Diarrhea Verified 04/14/24 11:58 vicodin Allergy Unknown heart Uncoded 04/14/24 11:58 palpitation Exam Exam Comment: Left carpal tunnel syndrome Plan Diagnosis/Plan: Unchanged I have reviewed the history and physical and performed a pertinent physical examination on my patient. No changes have occurred unless specified. Time Spent With Patient Time: Total time managing care of this patient today ____ minutes.
--- NOTE | 2024-06-07 11:22 | W.PM.OPN ---
Operative Note Operative Note Date of Service: 06/07/24 Narrative: Preop diagnosis: 1. Left Carpal tunnel syndrome Postop diagnosis: same Procedure: 1. Left Carpal tunnel release Surgeon: Yvette Camacho MD Inspecting And Testing Lead Hand: None Anesthesia: local block using 1% lidocaine with epinephrine Findings: Thickened transverse carpal ligament. EBL: Less than 5 mL Specimens: None Complications: None Disposition: Brought to recovery room in stable condition Plan: Follow-up for 10-14 days for wound check and suture removal Indications: The patient is 64 years old, with left carpal tunnel syndrome that has been unresponsive to nonoperative management. The risks and benefits of operative treatment including but not limited to risk of damage to blood vessels, nerves, tendons, infection, persistent pain, persistent symptoms, or possible need for additional surgery were discussed with the patient and the patient wishes to proceed with surgery. Procedure: Once consent was obtained a local block was performed using a combination of 1% lidocaine with epinephrine. The patient was then brought back to the operating suite and placed on the operative table in supine position. The left upper extremity was prepped and draped in a standard surgical fashion. Once assured that we had a good block, a 2.0 cm longitudinal incision was made centered over the carpal tunnel. The incision was made through the skin to the subcutaneous tissues using a #15 blade. Dissection was made down to the level of the transverse carpal ligament with care being taken to protect the palmar cutaneous nerve. Once the transverse carpal ligament was clearly visualized, a longitudinal incision was made in the transverse carpal ligament 1st using a #15 blade, then using tenotomy scissors under direct visualization. Care was taken to look for and protect the motor branch of the median nerve when seen in this area. Once satisfied with our carpal tunnel release the wound was copiously irrigated with normal saline and hemostasis was obtained with a brief period of local pressure. The skin edges were reapproximated with some 5.0 nylon suture material and a sterile dressing was applied. The patient appears to have tolerated the procedure well and with no complications. All digits were well vascularized at the conclusion of the case.
[2024-06-07 13:00] VITALS: BP 147/77; PULSE 66; RESP 15; O2SAT 96
== END 2024-06-07 12:48 | disposition home or self-care (01) ==
PROVIDERS: PCP Internal Medicine; Visit Provider Orthopaedic Surgery
PROC: (CPT 64721; principal; 2024-06-07 11:10)
DX: G56.02 Carpal tunnel syndrome, left upper limb (principal); R20.0 Anesthesia of skin; E11.9 Type 2 diabetes mellitus without complications; M48.00 Spinal stenosis, site unspecified; G62.9 Polyneuropathy, unspecified; G47.33 Obstructive sleep apnea (adult) (pediatric); Z99.89 Dependence on other enabling machines and devices; Z99.3 Dependence on wheelchair; L23.1 Allergic contact dermatitis due to adhesives; Z91.040 Latex allergy status; Z88.8 Allergy status to other drugs, medicaments and biological substances
CPT/HCPCS: 64721; J0171

== ENCOUNTER → 2024-06-07 09:42 | Outpatient (BNV) | payer MEDICARE, OTHER, SELFPAY | PROVIDERS: PCP Internal Medicine; Visit Provider Orthopaedic Surgery | DX: G56.02 Carpal tunnel syndrome, left upper limb (principal) | CPT/HCPCS: 64721 ==

== ENCOUNTER 2024-06-16 09:51 | Outpatient (AMB) | payer MEDICARE, OTHER, SELFPAY ==
--- NOTE | 2024-06-16 09:56 | A.OFFVIS_ITS ---
Vital Signs 06/16/24 10:01 Height 5 ft 1 in Weight 286 lb BMI 54.0 Intake Visit Reasons: PO: Wound Check LT CTR 06/07/24 AR Intake Note: Gina is a 64 yo female who presents today for a wound check s/p LT CTR 06/07/24 AR. She has been noticing discharge since Friday when she removed her bandage. She has been applying antibiotic ointment. She also reports one of the stitches looked like it opened. Allergies Adhesive Bandages Allergy (Unknown, Verified 06/16/24 10:09) rash adhesive tape [TAPE,ADHESIVE] Allergy (Unknown, Verified 06/16/24 10:09) RASH amlodipine Allergy (Unknown, Verified 06/16/24 10:09) edema atenolol Allergy (Unknown, Verified 06/16/24 10:09) Bradycardia bisoprolol [From Zebeta] Allergy (Unknown, Verified 06/16/24 10:09) Diarrhea labetalol Allergy (Unknown, Verified 06/16/24 10:09) n/a latex [LATEX] Allergy (Unknown, Verified 06/16/24 10:09) RASH semaglutide [From Ozempic] Adverse Reaction (Intermediate, Verified 06/16/24 10:09) Diarrhea vicodin Allergy (Unknown, Uncoded 06/16/24 10:09) heart palpitation HPI HPI PO: Wound Check LT CTR 06/07/24 AR: Details: Gina is a 63 year old right hand dominant Diabetic woman who returns S/P left carpal tunnel release, DOS: 06/07/24. She is here for a wound check. She reports having some drainage from her incision since she removed her dressing on 06/12/24. She has been applying topical Abx, which she says may be helping. She says she is covering her incision overnight, but leaves it open to air during the day. She says she notices some drainage on her bandage when removing it in the mornings. She reports having a mild ache in her incision, and some redness, which she feels has been improving. In regards to her right hand, her sensation is now normal. She says her Diabetes is well-controlled. She denies any medication and says this is managed through her diet. She is seen today in a wheelchair and says she has spinal stenosis and dense numbness in her bilateral feet & legs, which makes it very difficult for her to stand and walk around. She walks using a roller walker when needed. She says she sleeps in a recliner at home [facility] Medical History (Updated 04/14/24 @ 13:35 by Yolanda Jack MD) Bunion of right foot Hyperglycemia Morbid obesity Foot callus Neuropathy Edema Urinary retention Plantar fasciitis Obesity TONI on CPAP Osteoarthritis Spinal stenosis Hypertension Surgical History (Updated 04/14/24 @ 11:59 by Elizabeth Bullock [facility]) History of carpal tunnel surgery H/O foot surgery History of tonsillectomy H/O colonoscopy History of lumbar surgery Family History Father History of heart attack Mother HTN (hypertension) Stroke Brother Stomach cancer Brother History of heart attack HTN (hypertension) Diabetes mellitus Lung cancer Brother Bladder cancer Heart attack Social History Housing: House Alcohol intake: never Patient Tobacco Use Status: Never used Tobacco e-Cigarette/Vaping Use: Never Used Second Hand Smoke Exposure: No service: No Current occupational status: disabled Current occupation: right hand dominant Cognitive needs: No Hearing needs: No Vision needs: Yes Physical Exam Vital Signs: BMI result Body Mass Index 54.0 Const General: no acute distress and alert Orientation/consciousness: patient oriented x3 Neuro General: patient oriented x3 Extrem Other: The patient was alert oriented and in no acute distress The incision is healing well, with some mld erythema about the proximal end of her incision, and a small area of whiteness around one suture, which may be a possible suture abscess forming She can make a fist and extend all her digits. Normal sensation to the tips of all digits bilaterally Cap refill is brisk Nerve Conduction study: IMPRESSION: 1. This is an abnormal study. 2. There is electrodiagnostic evidence for bilateral moderate-severe median neuropathy at the wrist, consistent with carpal tunnel syndrome. 3. There is no electrodiagnostic evidence for ulnar neuropathy, brachial plexopathy, or cervical radiculopathy. Josey Thurman MD, JANENE 01/30/24 Psych Appearance: grossly normal Affect: normal affect Attitude: cooperative Assessment & Plan Assessment & Plan (1) Carpal tunnel syndrome of right wrist: Code(s): G56.01 - Carpal tunnel syndrome, right upper limb Category: Medical (2) Wheelchair dependent: Code(s): Z99.3 - Dependence on wheelchair Category: Medical (3) DM type 2 (diabetes mellitus, type 2): Comment: diet controlled, intolerant to Ozempic (diarrhea) , A1C 5.4 10/02 Code(s): E11.9 - Type 2 diabetes mellitus without complications Category: Medical (4) Spinal stenosis: Code(s): M48.00 - Spinal stenosis, site unspecified Category: Medical (5) Neuropathy: Comment: Lower extremity weakness and sensory neuropathy Code(s): G62.9 - Polyneuropathy, unspecified Category: Medical Plan Assessment & Plan: 1. Left carpal tunnel syndrome, S/P release DOS: 06/07/24 Pre-operative symptoms intermittent, but daily, worse at night Now with normal sensation and good resolution of her nighttime symptoms The patient appears to be doing well post-operatively I educated her about the post-operative course I explained the signs and symptoms of infection, if the patient develops any new or worsening erythema, drainage, pain, or warmth they should contact the clinic or attend the ED. She does have some mild erythema proximally and may be developing a suture abscess Out of an abundance of caution, I ordered a 10-day course of PO Augmentin. I discussed activity modifications, she is to lift nothing heavier than a cellphone for the next two weeks She should avoid any underwater activities for the next 5 days She will follow-up as scheduled on 06/22/24 for a wound check & suture removal. 2. Right carpal tunnel syndrome, S/P release DOS: 03/18/24 Pre-operative symptoms intermittent, but daily, worse at night Now with normal sensation and good resolution of her nighttime symptoms Scribed for Yvette Camacho MD by Serjio Varela, medical billing specialist, on 06/16/24 at 10:10 AM, EST. Medications: New amoxicillin-pot clavulanate 875-125 mg 1 tab PO Q12H 20 tabs 0RF Scribe Plan - Not visible on output: Scribed for Yvette Camacho MD by Serjio Varela medical billing specialist, on [ ] at [ ], EST. Coding Level of Care Code Global (49323) Diagnoses Carpal tunnel syndrome of right wrist G56.01 Wheelchair dependent Z99.3 DM type 2 (diabetes mellitus, type 2) E11.9 Spinal stenosis M48.00 Neuropathy G62.9
[2024-06-16 10:01] VITALS: BMI 54.0
== END 2024-06-16 10:23 | disposition home or self-care (01) ==
PROVIDERS: PCP Internal Medicine; Visit Provider Orthopaedic Surgery
DX: G56.01 Carpal tunnel syndrome, right upper limb (principal); Z99.3 Dependence on wheelchair; E11.9 Type 2 diabetes mellitus without complications; M48.00 Spinal stenosis, site unspecified; G62.9 Polyneuropathy, unspecified
CPT/HCPCS: 99024

== ENCOUNTER → 2024-06-16 09:51 | Outpatient (BNVA) | payer MEDICARE, OTHER, SELFPAY | PROVIDERS: PCP Internal Medicine; Visit Provider Orthopaedic Surgery | DX: Z48.811 Encounter for surgical aftercare following surgery on the nervous system (principal); M48.00 Spinal stenosis, site unspecified; G62.9 Polyneuropathy, unspecified; E11.9 Type 2 diabetes mellitus without complications; Z99.3 Dependence on wheelchair; Z98.890 Other specified postprocedural states | CPT/HCPCS: 99212 ==

== ENCOUNTER 2024-06-22 10:57 | Outpatient (AMB) | payer MEDICARE, OTHER, MEDICAID, SELFPAY ==
--- NOTE | 2024-06-22 11:46 | MHC.OFFVIS ---
Intake Visit Reasons: PO LT CTR 06/07/24 AR Intake Note: Gina is a 64 yo female who presents today for a wound check s/p LT CTR 06/07/24 AR. She has been taking antibiotics which she reports have helped her symptoms. Patient denies any discharge, redness, or new signs of infection Sutures removed in office today and steri strips applied. Allergies Adhesive Bandages Allergy (Unknown, Verified 06/16/24 10:09) rash adhesive tape [TAPE,ADHESIVE] Allergy (Unknown, Verified 06/16/24 10:09) RASH amlodipine Allergy (Unknown, Verified 06/16/24 10:09) edema atenolol Allergy (Unknown, Verified 06/16/24 10:09) Bradycardia bisoprolol [From Zebeta] Allergy (Unknown, Verified 06/16/24 10:09) Diarrhea labetalol Allergy (Unknown, Verified 06/16/24 10:09) n/a latex [LATEX] Allergy (Unknown, Verified 06/16/24 10:09) RASH semaglutide [From Ozempic] Adverse Reaction (Intermediate, Verified 06/16/24 10:09) Diarrhea vicodin Allergy (Unknown, Uncoded 06/16/24 10:09) heart palpitation HPI HPI PO LT CTR 06/07/24 AR: Details: Gina is a 63 year old right hand dominant Diabetic woman who returns S/P left carpal tunnel release, DOS: 06/07/24. She says she is doing well and denies any evidence of infection. She reports no drainage, pain, redness, or warmth. She has been taking her PO Abx as instructed & applying topical Abx ointment. In regards to her right hand, her sensation is now normal. She says her Diabetes is well-controlled. She denies any medication and says this is managed through her diet. She is seen today in a wheelchair and says she has spinal stenosis and dense numbness in her bilateral feet & legs, which makes it very difficult for her to stand and walk around. She walks using a roller walker when needed. She says she sleeps in a recliner at home [facility] Medical History (Updated 04/14/24 @ 13:35 by Yolanda Jack MD) Bunion of right foot Hyperglycemia Morbid obesity Foot callus Neuropathy Edema Urinary retention Plantar fasciitis Obesity TONI on CPAP Osteoarthritis Spinal stenosis Hypertension Surgical History (Updated 04/14/24 @ 11:59 by Elizabeth Bullock Antonia) History of carpal tunnel surgery H/O foot surgery History of tonsillectomy H/O colonoscopy History of lumbar surgery Family History (Reviewed 03/08/24 @ 13:58 by Madelyn Granados [facility]) Father History of heart attack Mother HTN (hypertension) Stroke Brother Stomach cancer Brother History of heart attack HTN (hypertension) Diabetes mellitus Lung cancer Brother Bladder cancer Heart attack Social History Housing: House Alcohol intake: never Patient Tobacco Use Status: Never used Tobacco e-Cigarette/Vaping Use: Never Used Second Hand Smoke Exposure: No service: No Current occupational status: disabled Current occupation: right hand dominant Cognitive needs: No Hearing needs: No Vision needs: Yes Physical Exam Const General: no acute distress and alert Orientation/consciousness: patient oriented x3 Neuro General: patient oriented x3 Extrem Other: The patient was alert oriented and in no acute distress The incision is healing well. Mild residual erythema but no drainage or swelling. There is improvement since last week. Sutures removed and Steri-strips applied She can make a fist and extend all her digits without pain.. Normal sensation to the tips of all digits bilaterally Cap refill is brisk Nerve Conduction study: IMPRESSION: 1. This is an abnormal study. 2. There is electrodiagnostic evidence for bilateral moderate-severe median neuropathy at the wrist, consistent with carpal tunnel syndrome. 3. There is no electrodiagnostic evidence for ulnar neuropathy, brachial plexopathy, or cervical radiculopathy. Josey Thurman MD, JANENE 01/30/24 Psych Appearance: grossly normal Affect: normal affect Attitude: cooperative Assessment & Plan Assessment & Plan (1) Carpal tunnel syndrome of right wrist: Code(s): G56.01 - Carpal tunnel syndrome, right upper limb Category: Medical (2) Wheelchair dependent: Code(s): Z99.3 - Dependence on wheelchair Category: Medical (3) DM type 2 (diabetes mellitus, type 2): Comment: diet controlled, intolerant to Ozempic (diarrhea) , A1C 5.4 10/02 Code(s): E11.9 - Type 2 diabetes mellitus without complications Category: Medical (4) Spinal stenosis: Code(s): M48.00 - Spinal stenosis, site unspecified Category: Medical (5) Neuropathy: Comment: Lower extremity weakness and sensory neuropathy Code(s): G62.9 - Polyneuropathy, unspecified Category: Medical Plan Assessment & Plan: 1. Left carpal tunnel syndrome, S/P release DOS: 06/07/24 Pre-operative symptoms intermittent, but daily, worse at night Now with normal sensation and good resolution of her nighttime symptoms The patient appears to be doing well post-operatively I educated her about the post-operative course I explained the signs and symptoms of infection, if the patient develops any new or worsening erythema, drainage, pain, or warmth they should contact the clinic or attend the ED. She has no evidence of infection today in clinic She will continue her Abx as instructed until completed I discussed activity modifications, she is to lift nothing heavier than a cellphone for the next two weeks She should avoid any underwater activities for the next 5 days She will follow up prn 2. Right carpal tunnel syndrome, S/P release DOS: 03/18/24 Pre-operative symptoms intermittent, but daily, worse at night Now with normal sensation and good resolution of her nighttime symptoms Scribed for Yvette Camacho MD by suellen Higgins, on 06/22/24 at 12:00 PM, EST. Scribe Plan - Not visible on output: Scribed for Yvette Camacho MD by suellen Higgins scribe, on [ ] at [ ], EST. Coding Level of Care Code Global (23547) Diagnoses Carpal tunnel syndrome of right wrist G56.01 Wheelchair dependent Z99.3 DM type 2 (diabetes mellitus, type 2) E11.9 Spinal stenosis M48.00 Neuropathy G62.9
== END 2024-06-22 12:13 | disposition home or self-care (01) ==
LOC: HO.HOS 10:57
PROVIDERS: PCP Internal Medicine; Visit Provider Orthopaedic Surgery
DX: G56.01 Carpal tunnel syndrome, right upper limb (principal); Z99.3 Dependence on wheelchair; E11.9 Type 2 diabetes mellitus without complications; M48.00 Spinal stenosis, site unspecified; G62.9 Polyneuropathy, unspecified
CPT/HCPCS: 99024

== ENCOUNTER → 2024-06-22 10:57 | Outpatient (BNVA) | payer MEDICARE, OTHER, MEDICAID, SELFPAY | PROVIDERS: PCP Internal Medicine; Visit Provider Orthopaedic Surgery | DX: G56.01 Carpal tunnel syndrome, right upper limb (principal); M48.00 Spinal stenosis, site unspecified; G62.9 Polyneuropathy, unspecified; E11.9 Type 2 diabetes mellitus without complications; Z99.3 Dependence on wheelchair | CPT/HCPCS: 99212 ==

== ENCOUNTER 2024-08-18 15:15 | Outpatient (AMB) | payer MEDICARE, OTHER, MEDICAID, SELFPAY ==
[2024-08-18 15:17] VITALS: BMI 54.0
--- NOTE | 2024-08-18 15:17 | MHC.OFFVIS ---
Vital Signs 08/18/24 15:17 Height 5 ft 1 in Weight 286 lb BMI 54.0 Intake Visit Reasons: PO LT CTR 06/07/24 AR Intake Note: Gina is a 64 yo female who presents today post-operatively s/p LT CTR 06/07/24 AR. Patient complains today of left thumb pain however she points to her left dequevervain's, causing pain with flexion and extension. Patient confirms this was not a problem prior to her surgery. Allergies Adhesive Bandages Allergy (Unknown, Verified 08/18/24 15:18) rash adhesive tape [TAPE,ADHESIVE] Allergy (Unknown, Verified 08/18/24 15:18) RASH amlodipine Allergy (Unknown, Verified 08/18/24 15:18) edema atenolol Allergy (Unknown, Verified 08/18/24 15:18) Bradycardia bisoprolol [From Zebeta] Allergy (Unknown, Verified 08/18/24 15:18) Diarrhea labetalol Allergy (Unknown, Verified 08/18/24 15:18) n/a latex [LATEX] Allergy (Unknown, Verified 08/18/24 15:18) RASH semaglutide [From Ozempic] Adverse Reaction (Intermediate, Verified 08/18/24 15:18) Diarrhea vicodin Allergy (Unknown, Uncoded 08/18/24 15:18) heart palpitation HPI HPI PO LT CTR 06/07/24 AR: Details: Gina is a 64 year old right hand dominant woman who presents with complaints of left radial sided wrist pain. Her pain is worse with pinching and gripping activities. She says this has been present for ~6 weeks. She was hoping this would resolve on its own. She denies any injuries She denies any prior treatment options. In regards to her carpal tunnel syndrome, she says her sensation is now normal to the tips of all digits in both hands. [facility] Medical History (Updated 08/18/24 @ 15:27 by Serjio Varela) Bunion of right foot Hyperglycemia Morbid obesity Foot callus Neuropathy Edema Urinary retention Plantar fasciitis Obesity TONI on CPAP Osteoarthritis Spinal stenosis Hypertension Surgical History (Updated 04/14/24 @ 11:59 by Elizabeth Bullock [facility]) History of carpal tunnel surgery H/O foot surgery History of tonsillectomy H/O colonoscopy History of lumbar surgery Family History Father History of heart attack Mother HTN (hypertension) Stroke Brother Stomach cancer Brother History of heart attack HTN (hypertension) Diabetes mellitus Lung cancer Brother Bladder cancer Heart attack Social History Housing: House Alcohol intake: never Patient Tobacco Use Status: Never used Tobacco e-Cigarette/Vaping Use: Never Used Second Hand Smoke Exposure: No service: No Current occupational status: disabled Current occupation: right hand dominant Cognitive needs: No Hearing needs: No Vision needs: Yes Review of Systems Const All systems reviewed & are unremarkable except as noted in HPI and below Physical Exam Vital Signs: BMI result Body Mass Index 54.0 Const General: no acute distress and alert Orientation/consciousness: patient oriented x3 Neuro General: patient oriented x3 Extrem Other: Evaluation of Left Upper Extremity: The patient is alert, oriented, and in no acute distress Neuro: Median, Ulnar, Radial nerves motor and sensory intact and sensation is normal to the tips of all digits Vascular: Cap refill brisk ROM: She can make a fist and extend all her digits No locking or catching Tender over the 1st dorsal compartment Positive Ines test on the left Negative Ines test on the right Mildly tender over the basal joint No tenderness over the MCP joint, or a1 maryjo Psych Appearance: grossly normal Affect: normal affect Attitude: cooperative Office Procedures AMB Fracture Care Details: No fracture, injection Fracture Billing Code: Fracture Billing Code Assessment & Plan Assessment & Plan (1) De Quervain's tenosynovitis, left: Code(s): M65.4 - Radial styloid tenosynovitis [de Quervain] Category: Medical (2) Wheelchair dependent: Code(s): Z99.3 - Dependence on wheelchair Category: Medical (3) DM type 2 (diabetes mellitus, type 2): Comment: diet controlled, intolerant to Ozempic (diarrhea) , A1C 5.4 10/02 Code(s): E11.9 - Type 2 diabetes mellitus without complications Category: Medical Plan Assessment & Plan: 1. Left De Quervains Tenosynovitis Positive Ines test I educated her about this condition I discussed operative and non-operative treatment options The patient would like to proceed with an injection I discussed activity modification, they should limit or avoid any heavy or repetitive pinching or gripping activities She was fitted for a comfort cool brace to wear with daily activity Injection #1: The risks and benefits of a steroid injection including but not limited to risk of damage to blood vessels, nerves, tendons, infection, skin bleaching, failure to improve symptoms, increased pain, and possible need for further injections or other intervention were discussed with the patient and the patient wishes to proceed with the steroid injection. Once consent was obtained, I sterilely prepped the area over the 1st dorsal compartment of the Left thumb. I then injected the 1st dorsal compartment with a combination of 1 mL of dexamethasone (4mg/ml), and 1% lidocaine. The patient tolerated the procedure well with no complications and good resolution of their symptoms prior to leaving clinic. If the patient continues to have pain 6-8 weeks following this injection, they may call to schedule appointment to discuss alternative treatment options She will follow up prn 2. Left carpal tunnel syndrome, S/P release DOS: 06/07/24 Pre-operative symptoms intermittent, but daily, worse at night Now with normal sensation and good resolution of her nighttime symptoms 3. Right carpal tunnel syndrome, S/P release DOS: 03/18/24 Pre-operative symptoms intermittent, but daily, worse at night Now with normal sensation and good resolution of her nighttime symptoms Scribed for Yvette Camacho MD by Serjio Varela, medical technicians, on 08/18/24 at 3:30 PM, EST. Coding Level of Care Code Est Pt Level 3 (34263) Diagnoses De Quervain's tenosynovitis, left M65.4 Wheelchair dependent Z99.3 DM type 2 (diabetes mellitus, type 2) E11.9 CPT Codes Fracture Care - Fracture Billing Code: Fracture Billing Code ([id number])
== END 2024-08-18 15:47 | disposition home or self-care (01) ==
PROVIDERS: PCP Internal Medicine; Visit Provider Orthopaedic Surgery
DX: M65.4 Radial styloid tenosynovitis [de Quervain] (principal); Z99.3 Dependence on wheelchair; E11.9 Type 2 diabetes mellitus without complications
CPT/HCPCS: 20550; 99213

== ENCOUNTER → 2024-08-18 15:15 | Outpatient (BNVA) | payer MEDICARE, OTHER, MEDICAID, SELFPAY | PROVIDERS: PCP Internal Medicine; Visit Provider Orthopaedic Surgery | DX: M65.4 Radial styloid tenosynovitis [de Quervain] (principal); Z99.3 Dependence on wheelchair; Z98.890 Other specified postprocedural states | CPT/HCPCS: 20550; 99212; J1100; J2003 ==

== ENCOUNTER 2024-08-25 13:21 | Outpatient (AMB) | payer MEDICARE, OTHER, MEDICAID, SELFPAY ==
--- NOTE | 2024-08-25 13:34 | MHC.OFFVIS ---
Vital Signs 08/25/24 13:40 Height 5 ft 1 in Weight 286 lb BMI 54.0 Intake Visit Reasons: OV LT shoulder pain Intake Note: Gina a 64 year old female who presents today for a follow up of left shoulder, last injection on 12/10/23. Patient reports injection provided her with some relief. She has a constant ache and with ROM her pain increases. She has tightness in her shoulder that feels like a pulling sensation with raising her arm. She has numbness to the touch. She has completed PT in the past that did not provide her with relief. Allergies Adhesive Bandages Allergy (Unknown, Verified 08/25/24 13:43) rash adhesive tape [TAPE,ADHESIVE] Allergy (Unknown, Verified 08/25/24 13:43) RASH amlodipine Allergy (Unknown, Verified 08/25/24 13:43) edema atenolol Allergy (Unknown, Verified 08/25/24 13:43) Bradycardia bisoprolol [From Zebeta] Allergy (Unknown, Verified 08/25/24 13:43) Diarrhea labetalol Allergy (Unknown, Verified 08/25/24 13:43) n/a latex [LATEX] Allergy (Unknown, Verified 08/25/24 13:43) RASH semaglutide [From Ozempic] Adverse Reaction (Intermediate, Verified 08/25/24 13:43) Diarrhea vicodin Allergy (Unknown, Uncoded 08/25/24 13:43) heart palpitation Medication List - Last Reconciled 08/25/24 by Elias Fields PA-C acetaminophen ER 1,300 mg PO Q12H amoxicillin-pot clavulanate 875-125 mg 1 tab PO Q12H aspirin 81 mg PO DAILY carvedilol 6.25 mg PO BID catheter (Bardex All-Silicone Duncan Catheter) As directed celecoxib 200 mg PO BID cholecalciferol (vitamin D3) 25 mcg PO DAILY clotrimazole-betamethasone 1-0.05 % 1 appl topical BID PRN furosemide 40 mg PO DAILY gabapentin 900 mg (3 x 300 mg) PO BEDTIME hydralazine 50 mg PO BID irbesartan 300 mg PO DAILY magnesium oxide 500 mg PO DAILY multivitamin 1 tab PO DAILY nystatin (Nystop) 1 appl topical BID omega 1-ewf-toi-fish oil 1,000 mg (120 mg-180 mg) (Fish Oil) 1 cap PO DAILY omeprazole 20 mg PO DAILY oxycodone-acetaminophen 5-325 mg 1 tab PO Q6H PRN oxycodone-acetaminophen 5-325 mg 1 tab PO Q6H PRN pregabalin 150 mg PO BID rosuvastatin 10 mg PO BEDTIME spironolactone 25 mg PO DAILY terazosin 20 mg (2 x 10 mg) PO DAILY tirzepatide (weight loss) (Zepbound) 2.5 mg (0.5 mL) subcut QWEEK 4 weeks triamcinolone acetonide 0.1% 1 appl topical DAILY PRN HPI HPI OV LT shoulder pain: Details: 64-year-old female who returns to the office today for a follow-up of left shoulder pain. She had her last injection on 12/10/23 that provided her some relief. She currently states she has constant intense ache and pain in her shoulder that started 1 month after her left and right CTR one in March and one at May. She also experiences tightness in her shoulder that feels like a pulling sensation with raising her arm. Her shoulder is numb to touch. She has completed physical therapy in the past which did not provide her any relief. She does not have a history of diabetes. [facility] Medical History (Updated 08/18/24 @ 15:27 by Serjio Varela) Bunion of right foot Hyperglycemia Morbid obesity Foot callus Neuropathy Edema Urinary retention Plantar fasciitis Obesity TONI on CPAP Osteoarthritis Spinal stenosis Hypertension Surgical History (Updated 04/14/24 @ 11:59 by Elizabeth Bullock Antonia) History of carpal tunnel surgery H/O foot surgery History of tonsillectomy H/O colonoscopy History of lumbar surgery Family History Father History of heart attack Mother HTN (hypertension) Stroke Brother Stomach cancer Brother History of heart attack HTN (hypertension) Diabetes mellitus Lung cancer Brother Bladder cancer Heart attack Social History Housing: House Alcohol intake: never Patient Tobacco Use Status: Never used Tobacco e-Cigarette/Vaping Use: Never Used Second Hand Smoke Exposure: No service: No Current occupational status: disabled Current occupation: right hand dominant Cognitive needs: No Hearing needs: No Vision needs: Yes Review of Systems Const All systems reviewed & are unremarkable except as noted in HPI and below Physical Exam Vital Signs: BMI result Body Mass Index 54.0 Extrem Other: Left shoulder: Normal to inspection. Tenderness over the bicipital groove and along the deltoid region of the shoulder. Forward flexion to 175, external rotation to 90, internal rotation to S1. 5/5 RTC strength. Negative Vincent and cross body abduction. NVI. Office Procedures Joint Injection/Aspiration Joint Injection/Aspiration Primary Site: left shoulder Prep: site was prepped using aseptic technique, ethochloride spray was applied and injection warnings given Injected: 80 mg of, DepoMedrol, with 8 mL of, 1% plain lidocaine and in the subcromial space Approach Used: posterolateral Procedure: The patient tolerated the procedure well and there was some relief with the local anesthesia Coding 02586 - Glenohumeral/Tronchanteric Bursa/Intraarticular Procedure code (CPT) selection complete Assessment & Plan Assessment & Plan (1) Left shoulder tendonitis: Code(s): M77.8 - Other enthesopathies, not elsewhere classified Category: Medical Plan We discussed options today, which include steroid injection. The patient did consent to move forward with the left shoulder injection, which was tolerated well. I recommended rest, ice, and elevation and OTC anti-inflammatories as needed for discomfort. If symptoms persist or worsen over the next 6-8 weeks, patient will contact the office, otherwise follow-up as needed. Patient Instructions: Scribed for Elias Fields PA-C, by Cecilio Sims medical record coder, on 08/25/2024 at 1:45 PM EST.? I, Elias Fields PA-C, have personally reviewed and agree with the information entered by the scribe. Coding Level of Care Code Est Pt Level 3 (60941) Complex EM visit Add On G2211 Diagnoses Left shoulder tendonitis M77.8 CPT Codes Coding - Joint 7: 07077 - Glenohumeral/Tronchanteric Bursa/Intraarticular ([id number])
[2024-08-25 13:40] VITALS: BMI 54.0
== END 2024-08-25 14:03 | disposition home or self-care (01) ==
PROVIDERS: PCP Internal Medicine; Visit Provider Physician Assistant
DX: M77.8 Other enthesopathies, not elsewhere classified (principal)
CPT/HCPCS: 20610; 99213

== ENCOUNTER → 2024-08-25 13:21 | Outpatient (BNVA) | payer MEDICARE, OTHER, MEDICAID, SELFPAY | PROVIDERS: PCP Internal Medicine; Visit Provider Physician Assistant | DX: M25.512 Pain in left shoulder (principal); M77.8 Other enthesopathies, not elsewhere classified | CPT/HCPCS: 20610; 99212; J1010; J2003 ==

== ENCOUNTER 2024-09-13 10:00 | Outpatient (RCR) | payer MEDICARE, MEDICAID, OTHER, SELFPAY | END 2024-09-20 14:55 | disposition home or self-care (01) | LOC: HO.WCC 10:00 | PROVIDERS: PCP Internal Medicine; Visit Provider Surgery | DX: L97.522 Non-pressure chronic ulcer of other part of left foot with fat layer exposed (principal); L97.512 Non-pressure chronic ulcer of other part of right foot with fat layer exposed; G60.9 Hereditary and idiopathic neuropathy, unspecified; I10 Essential (primary) hypertension; M48.00 Spinal stenosis, site unspecified; Z79.899 Other long term (current) drug therapy | CPT/HCPCS: 11042; 15275; 17250; 97597; 99212; 99213; Q4187 ==

== ENCOUNTER 2024-10-21 10:23 | Outpatient (REF) | payer MEDICARE, MEDICAID, OTHER, SELFPAY ==
[2024-10-21 13:20] LABS: MANUAL DIFF FLAG NO
[2024-10-21 13:28] LABS: Basophils Percent Auto 0.5 % (0-2); Eosinophils Absolute Auto 0.4 X10*3/uL (0.0-0.4); Eosinophils Percent Auto 4.7 % (0-4); Hematocrit 34.4 % (37.0-47.0); Hemoglobin 11.2 g/dl (12.0-16.0); Imm Gran Abs Auto 0.03 X10*3/uL (0.00-0.03); Imm Gran Pct Auto 0.4 % (0.0-0.4); Lymphocytes Absolute Auto 2.3 X10*3/uL (1.2-4.9); Lymphocytes Percent Auto 27.1 % (20-40); Mean Corpuscular HGB Conc 32.6 g/dl (31.0-35.0); Mean Corpuscular Hemoglobin 28.8 pg (27.0-33.0); Mean Corpuscular Volume 88.4 fL (80.0-98.0); Monocytes Absolute Auto 0.8 X10*3/uL (0.1-1.2); Monocytes Percent Auto 9.5 % (2-11); Neutrophils Absolute Auto 4.9 x10*3/uL (2.0-8.3); Neutrophils Percent Auto 57.8 % (45-73); Platelet Count 253 X10*3/uL (160-400); Red Blood Count 3.89 X10*6/uL (4.20-5.50); Red Cell Distribution Width 14.2 % (11.0-16.0); White Blood Count 8.4 X10*3/uL (4.8-10.8)
[2024-10-21 13:33] LABS: Estimated Average Glucose 134 mg/dL; Hemoglobin A1C 130.4853 umol/L; Hemoglobin A1c % 6.3 % (<6.0); Total Hemoglobin (HGBA1C) 2859.0732 umol/L
[2024-10-21 13:49] LABS: Alanine Aminotransferase 25 U/L (0-31); Alkaline Phosphatase 93 U/L (39-117); Anion Gap 12 (12-20); Aspartate Amino Transferase 22 U/L (5-31); Bilirubin Total 0.5 mg/dL (0.0-1.0); Blood Urea Nitrogen 22 mg/dL (9-16); Carbon Dioxide 30 mmol/L (22-29); Chloride 102 mmol/L (96-108); Cholesterol 137 mg/dL (<200); Estimated Glomerular Filt Rate > 60; Glucose Random 104 mg/dL (60-115); HDL Cholesterol 32 mg/dL (>40); LDL Cholesterol Calculated 64 mg/dL (<100); Potassium 4.5 mmol/L (3.3-5.1); Sodium 139 mmol/L (135-145); Total Protein 7.1 g/dL (6.5-8.0); Triglycerides 206 mg/dL (<150)
[2024-10-21 14:10] LABS: TSH reflex Free T4 1.61 uIU/mL (0.32-4.0)
== END 2024-10-21 10:24 | disposition home or self-care (01) ==
LOC: HO.HMGCLDS 10:23
PROVIDERS: PCP Internal Medicine; Visit Provider Internal Medicine
DX: E11.9 Type 2 diabetes mellitus without complications (principal); E66.9 Obesity, unspecified; I10 Essential (primary) hypertension; E78.2 Mixed hyperlipidemia; E66.01 Morbid (severe) obesity due to excess calories
CPT/HCPCS: 36415; 80053; 80061; 83036; 84443; 85025

== ENCOUNTER 2024-10-28 12:20 | Outpatient (AMB) | payer MEDICARE, OTHER, MEDICAID, SELFPAY ==
--- NOTE | 2024-10-28 12:58 | MHC.PC.OV ---
Vital Signs 10/28/24 13:37 BMI Reason not done Patient refused/unable BP 114/70 Blood Pressure Location Lt radial Position Sitting Pulse 76 Pulse Source Pulse Oximeter Pulse Oximetry (%) 98 Oxygen Delivery Method Room Air Intake Visit Reasons: Annual PE Intake Note: Pt is here today for PE. Allergies Adhesive Bandages Allergy (Unknown, Verified 10/28/24 12:58) rash adhesive tape [TAPE,ADHESIVE] Allergy (Unknown, Verified 10/28/24 12:58) RASH amlodipine Allergy (Unknown, Verified 10/28/24 12:58) edema atenolol Allergy (Unknown, Verified 10/28/24 12:58) Bradycardia bisoprolol [From Zebeta] Allergy (Unknown, Verified 10/28/24 12:58) Diarrhea labetalol Allergy (Unknown, Verified 10/28/24 12:58) n/a latex [LATEX] Allergy (Unknown, Verified 10/28/24 12:58) RASH semaglutide [From Ozempic] Adverse Reaction (Intermediate, Verified 10/28/24 12:58) Diarrhea vicodin Allergy (Unknown, Uncoded 10/28/24 12:58) heart palpitation Medication List - Last Reconciled 10/28/24 by Yolanda Jack MD acetaminophen ER 1,300 mg PO Q12H aspirin 81 mg PO DAILY carvedilol 6.25 mg PO BID catheter (Bardex All-Silicone Duncan Catheter) As directed celecoxib 200 mg PO BID cholecalciferol (vitamin D3) 25 mcg PO DAILY clotrimazole-betamethasone 1-0.05 % 1 appl topical BID PRN doxycycline hyclate 100 mg PO BID furosemide 40 mg PO DAILY gabapentin 900 mg (3 x 300 mg) PO BEDTIME hydralazine 50 mg PO BID irbesartan 300 mg PO DAILY magnesium oxide 500 mg PO DAILY multivitamin 1 tab PO DAILY nystatin (Nystop) 1 appl topical BID omega 4-djn-uwz-fish oil 1,000 (120-180) mg (Fish Oil) 1 cap PO DAILY omeprazole 20 mg PO DAILY pregabalin 150 mg PO BID rosuvastatin 10 mg PO BEDTIME spironolactone 25 mg PO DAILY terazosin 20 mg (2 x 10 mg) PO DAILY tirzepatide (weight loss) (Zepbound) 2.5 mg (0.5 mL) subcut QWEEK 4 weeks triamcinolone acetonide 0.1% 1 appl topical DAILY PRN Tobacco use date assessed: 10/28/24 Dental Screening Dental Screen Date: 10/28/24 Did you have a dental visit in the last 12 months?: Yes Did you have a dental problem in the last 6 months where you did not have access to dental care?: No Was dental information given to patient?: Patient has dentist HPI Annual PE HPI Details Pt presents for PE. PFSH Medical History Bunion of right foot Hyperglycemia Morbid obesity Foot callus Neuropathy Edema Urinary retention Plantar fasciitis Obesity TONI on CPAP Osteoarthritis Spinal stenosis Hypertension Surgical History History of carpal tunnel surgery H/O foot surgery History of tonsillectomy H/O colonoscopy History of lumbar surgery Family History Father History of heart attack Mother HTN (hypertension) Stroke Brother Stomach cancer Brother History of heart attack HTN (hypertension) Diabetes mellitus Lung cancer Brother Bladder cancer Heart attack Social History Housing: House Alcohol intake: never Patient Tobacco Use Status: Never used Tobacco e-Cigarette/Vaping Use: Never Used Second Hand Smoke Exposure: No service: No Current occupational status: disabled Current occupation: right hand dominant Cognitive needs: No Hearing needs: No Vision needs: Yes Questionnaire PHQ-9 Over the last 2 weeks, how often have you been bothered by any of the following problems? 1. Little interest or pleasure in doing things: not at all 2. Feeling down, depressed, or hopeless: not at all 3. Trouble falling or staying asleep, or sleeping too much: not at all 4. Feeling tired or having little energy: not at all 5. Poor appetite or overeating: not at all 6. Feeling bad about yourself - or that you are a failure or have let yourself or your family down: not at all 7. Trouble concentrating on things, such as reading the newspaper or watching television: not at all 8. Moving or speaking so slowly that other people could have noticed. Or the opposite - being so fidgety or restless that you have been moving around a lot more than usual: not at all 9. Thoughts that you would be better off or of hurting yourself in some way: not at all Total score: 0 Depression Screening Interpretation: Negative Depression Screening Done: Yes 04318 - PHQ-9 Billing: Yes Source: Developed by Drs. Renan Amor, Yoselin Haines, Arnulfo Manzanares and colleagues, with an educational delia from [employer]. Thrive Questionnaire Date Thrive assessed: 10/28/24 I am a: Patient What is your living situation today?: I have a steady place to live Within the past 12 months, did the food you bought not last and you didn't have the money to get more?: Never true Within the past 12 months, did you worry whether your food would run out before you got money to buy more?: Never true Do you have trouble paying for medicines?: No Do you have trouble getting transportation to medical appointments?: No Do you have trouble paying your heating and electricity bill?: No Do you have trouble taking care of your child, family member or friend?: No Do you have trouble with day-to-day activities such as bathing, preparing meals, shopping, managing finances, etc.?: Yes Are you currently unemployed and looking for a job?: No Are you interested in more education?: No Please select the resources that you would like help with: None Currently or been in a relationship where the following occur: No concerns reported THRIVE Score: 0 AUDIT C Alcohol Use Questionnaire (AUDIT-C) 1. How often do you have a drink containing alcohol?: Never 3. How often do you have six or more drinks on one occasion?: Never Total Score: 0 GIANNA-7 AMB Questionnaire GIANNA-7 Date GIANNA - 7 assessed: 10/28/24 Feeling nervous, anxious, or on edge: 0 = Not at all Not being able to stop or control worryin = Not at all Worrying too much about different things: 0 = Not at all Trouble relaxin = Not at all Being so restless that it is hard to sit still: 0 = Not at all Becoming easily annoyed or irritable: 0 = Not at all Feeling afraid as if something awful might happen: 0 = Not at all Total GIANNA-7 score (0-4 normal; 5-9 mild; 10-14 moderate; 15-21 severe): 0 Source: Developed by Drs. Renan Amor, Yoselin Haines, Arnulfo Manzanares and colleagues, with an educational delia from [employer]. GIANNA-7 Assessment Billing GIANNA-7 Assessment Tool: GIANNA-7 Assessment 07325 Review of Systems Const All systems reviewed & are unremarkable except as noted in HPI and below Eyes Reports no additional complaints ENT Reports no additional complaints Card Reports no additional complaints Resp Reports no additional complaints GI Reports no additional complaints Reports no additional complaints Physical exam (Primary Care) Vital Signs: Last Vital Signs Pulse 76 10/28/24 13:37 BP 114/70 10/28/24 13:37 Pulse Ox 98 10/28/24 13:37 Oxygen Delivery Method Room Air 10/28/24 13:37 Tobacco/Smoking Status: Tobacco use Status Tobacco use date assessed 10/28/24 10/28/24 12:59 Patient Tobacco Use Status Never used Tobacco 10/28/24 12:59 e-Cigarette/Vaping Use Never Used 10/28/24 12:59 PHQ-9: PHQ-9 Score PHQ-9: Total score 0 10/28/24 13:41 Depression Screening Interpretation: Negative Thrive Assessment: Date of Thrive Assessment Date Thrive assessed 10/28/24 10/28/24 13:41 Currently or been in a relationship where the following occur: No concerns reported Const General: no acute distress HENMT Head: Yes normal to inspection Mouth: Normal oral and palatal mucosa present Throat: Yes posterior oropharynx normal Eyes General: appearance normal, both eyes and all related structures Neck Neck: Yes supple Resp Effort & Inspection: normal respiratory effort Auscultation: clear to auscultation bilaterally Cardio Rhythm: regular rhythm Heart sounds: S1 normal heart sound present and S2 normal heart sound present GI Inspection: Yes normal to inspection Palpation (GI): Soft to palpation Percussion: Yes normal to percussion Auscultation: normal bowel sounds Coding Level of Care Code Est Pt Prev Care 40-64y(22820) Diagnoses Annual physical exam Z00.00 DM type 2 (diabetes mellitus, type 2) E11.9 TONI (obstructive sleep apnea) G47.33 Morbid obesity E66.01 Hypertension I10 Mixed hyperlipidemia E78.2 Additional Codes GIANNA-7 Assessment Billing - GIANNA-7 Assessment Tool: GIANNA-7 Assessment 82960 ([id number]) PHQ-9 - 76655 - PHQ-9 Billing: Yes ([id number]) Assessment & Plan Assessment & Plan (1) Annual physical exam: Code(s): Z00.00 - Encounter for general adult medical examination without abnormal findings Category: Medical Plan: well balanced diet, increase physical activity, weight loss, discussed (2) DM type 2 (diabetes mellitus, type 2): Comment: diet controlled, intolerant to Ozempic (diarrhea) , A1C 5.4 10/02 Code(s): E11.9 - Type 2 diabetes mellitus without complications Category: Medical Plan: A1C 6.3, ADA diet (3) TONI (obstructive sleep apnea): Comment: Severe degree of sleep apnea and On BiPAP Code(s): G47.33 - Obstructive sleep apnea (adult) (pediatric) Category: Medical Plan: cont C pap (4) Morbid obesity: Code(s): E66.01 - Morbid (severe) obesity due to excess calories Category: Medical Plan: decreasing caloric intake, weight loss discussed. Pt will try Zepbound 2.5 mg to (5) Hypertension: Code(s): I10 - Essential (primary) hypertension Category: Medical Plan: cont meds (6) Mixed hyperlipidemia: Code(s): E78.2 - Mixed hyperlipidemia Category: Medical Plan: cont Crestor Orders: Orders Comprehensive [place]. Panel Fast 3 Months E11.9 - Type 2 diabetes mellitus without complications, E66.01 - Morbid (severe) obesity due to excess calories, E78.2 - Mixed hyperlipidemia, I10 - Essential (primary) hypertension, Z00.00 - Encounter for general adult medical examination without abnormal findings Hemoglobin A1c 3 Months E11.9 - Type 2 diabetes mellitus without complications, E66.01 - Morbid (severe) obesity due to excess calories, E78.2 - Mixed hyperlipidemia, I10 - Essential (primary) hypertension, Z00.00 - Encounter for general adult medical examination without abnormal findings Complete Blood Count Auto Diff 3 Months E11.9 - Type 2 diabetes mellitus without complications, E66.01 - Morbid (severe) obesity due to excess calories, E78.2 - Mixed hyperlipidemia, I10 - Essential (primary) hypertension, Z00.00 - Encounter for general adult medical examination without abnormal findings IRON PROFILE 3 Months E11.9 - Type 2 diabetes mellitus without complications, E66.01 - Morbid (severe) obesity due to excess calories, E78.2 - Mixed hyperlipidemia, I10 - Essential (primary) hypertension, Z00.00 - Encounter for general adult medical examination without abnormal findings Medications: Refilled tirzepatide (weight loss) (Zepbound) 2.5 mg (0.5 mL) subcut QWEEK 4 weeks 2 mL 0RF carvedilol 6.25 mg PO BID 180 tabs 3RF celecoxib 200 mg PO BID 180 caps 0RF M19.90 - Unspecified osteoarthritis, unspecified site gabapentin 900 mg (3 x 300 mg) PO BEDTIME 270 caps 3RF irbesartan 300 mg PO DAILY 90 tabs 3RF I10 - Essential (primary) hypertension nystatin (Nystop) 1 appl topical BID 240 grams 3RF furosemide 40 mg PO DAILY 90 tabs 3RF hydralazine 50 mg PO BID 180 tabs 3RF
[2024-10-28 13:37] VITALS: BP 114/70; PULSE 76; O2SAT 98
== END 2024-10-28 15:44 | disposition home or self-care (01) ==
PROVIDERS: PCP Internal Medicine; Visit Provider Internal Medicine
DX: Z00.00 Encounter for general adult medical examination without abnormal findings (principal); E11.9 Type 2 diabetes mellitus without complications; E66.01 Morbid (severe) obesity due to excess calories; G47.33 Obstructive sleep apnea (adult) (pediatric); I10 Essential (primary) hypertension; E78.2 Mixed hyperlipidemia

== ENCOUNTER → 2024-10-28 12:20 | Outpatient (BNVA) | payer MEDICARE, OTHER, MEDICAID, SELFPAY | PROVIDERS: PCP Internal Medicine; Visit Provider Internal Medicine | DX: Z00.00 Encounter for general adult medical examination without abnormal findings (principal); E11.9 Type 2 diabetes mellitus without complications; G47.33 Obstructive sleep apnea (adult) (pediatric); E66.01 Morbid (severe) obesity due to excess calories; I10 Essential (primary) hypertension; E78.2 Mixed hyperlipidemia; M19.90 Unspecified osteoarthritis, unspecified site | CPT/HCPCS: 96127; 99396 ==

== ENCOUNTER 2024-11-23 11:27 | Outpatient (AMB) | payer MEDICARE, MEDICAID, OTHER, SELFPAY ==
[2024-11-23 11:47] VITALS: BMI 54.0
--- NOTE | 2024-11-23 11:47 | A.OFFVIS_ITS ---
Vital Signs 11/23/24 11:47 Height 5 ft 1 in Weight 286 lb BMI 54.0 Intake Visit Reasons: OV- f/u from 08/18/24 injection Intake Note: Gina 64 yr old right hand dominant female presents today for a follow up visit for her Left De Quervains Tenosynovitis s/p injection on 08/18/24. States she is not sure if injection helped due to also having trigger thumb symptoms that started approx in September. States her thumb has been locking and is causing her discomfort and mild pain in her MCP saeed aspect of hand. Patient is interested in discussing injection vs surgical intervention. Allergies Adhesive Bandages Allergy (Unknown, Verified 11/23/24 11:53) rash adhesive tape [TAPE,ADHESIVE] Allergy (Unknown, Verified 11/23/24 11:53) RASH amlodipine Allergy (Unknown, Verified 11/23/24 11:53) edema atenolol Allergy (Unknown, Verified 11/23/24 11:53) Bradycardia bisoprolol [From Zebeta] Allergy (Unknown, Verified 11/23/24 11:53) Diarrhea labetalol Allergy (Unknown, Verified 11/23/24 11:53) n/a latex [LATEX] Allergy (Unknown, Verified 11/23/24 11:53) RASH semaglutide [From Ozempic] Adverse Reaction (Intermediate, Verified 11/23/24 11:53) Diarrhea vicodin Allergy (Unknown, Uncoded 11/23/24 11:53) heart palpitation HPI HPI OV- f/u from 08/18/24 injection: Details: Gina is a 64 year old right hand dominant woman who returns to discuss her left De Quervain's tenosynovitis She primarily complains of painful locking & catching of her left thumb, which began in September. She says this continues to cause her pain and has not improved. She says her radial-sided wrist pain has mostly improved following her injection, which she is happy about. She has open wounds on both her feet, which is being managed by wound care. She was told this would take several months for her to heal. Her Diabetes is well- controlled, her most recent HgA1c was 6.3% on 10/28/24 [facility] Medical History Bunion of right foot Hyperglycemia Morbid obesity Foot callus Neuropathy Edema Urinary retention Plantar fasciitis Obesity TONI on CPAP Osteoarthritis Spinal stenosis Hypertension Surgical History History of carpal tunnel surgery H/O foot surgery History of tonsillectomy H/O colonoscopy History of lumbar surgery Family History Father History of heart attack Mother HTN (hypertension) Stroke Brother Stomach cancer Brother History of heart attack HTN (hypertension) Diabetes mellitus Lung cancer Brother Bladder cancer Heart attack Social History Housing: House Alcohol intake: never Patient Tobacco Use Status: Never used Tobacco e-Cigarette/Vaping Use: Never Used Second Hand Smoke Exposure: No service: No Current occupational status: disabled Current occupation: right hand dominant Cognitive needs: No Hearing needs: No Vision needs: Yes Physical Exam Vital Signs: BMI result Body Mass Index 54.0 Const General: no acute distress and alert Orientation/consciousness: patient oriented x3 Neuro General: patient oriented x3 Extrem Other: Evaluation of Left Upper Extremity: The patient is alert, oriented, and in no acute distress Neuro: Median, Ulnar, Radial nerves motor and sensory intact and sensation is normal to the tips of all digits Vascular: Cap refill brisk ROM: She can make a fist and extend all her digits Visible & palpable locking & catching of the thumb Most tender over the thumb a1 maryjo No tenderness over the 1st dorsal compartment Negative Ines test on the left Mildly tender over the basal joint No tenderness over the MCP joint Psych Appearance: grossly normal Affect: normal affect Attitude: cooperative Office Procedures AMB Fracture Care Details: No fracture, injection Fracture Billing Code: Fracture Billing Code Assessment & Plan Assessment & Plan (1) Trigger thumb, left thumb: Code(s): M65.312 - Trigger thumb, left thumb Category: Medical (2) Wheelchair dependent: Code(s): Z99.3 - Dependence on wheelchair Category: Medical (3) DM type 2 (diabetes mellitus, type 2): Comment: diet controlled, intolerant to Ozempic (diarrhea) , A1C 5.4 10/02 Code(s): E11.9 - Type 2 diabetes mellitus without complications Category: Medical Plan Assessment & Plan: 1. Left trigger thumb I educated her about this condition I discussed operative and non-operative treatment options The patient would like to proceed with surgery, however she currently has some healing wounds to her feet She denies any evidence of infection and says she is being seen by wound care for this I recommend we proceed with an injection today, as we are unable to proceed with surgery while she has open wounds. She expressed understanding Injection #1: The risks and benefits of a steroid injection including but not limited to risk of damage to blood vessels, nerves, tendons, infection, skin bleaching, failure to improve symptoms, increased pain, and possible need for further injections or other intervention were discussed with the patient and the patient wishes to proceed with the steroid injection. Once consent was obtained, I sterilely prepped the area over the A1 maryjo of the flexor tendon sheath of the Left thumb. I then injected the flexor tendon sheath with a combination of 1 mL of dexamethasone (4mg/ml), and 1% lidocaine. The patient tolerated the procedure well with no complications. If the patient continues to have locking and catching 4-6 weeks following this injection, they may call to schedule appointment to discuss alternative treatment options Follow-up prn 2. Left De Quervains Tenosynovitis, S/P injection Date of injection: 08/18/24 Positive Ines test Resolved following injection 3. Left carpal tunnel syndrome, S/P release DOS: 06/07/24 Pre-operative symptoms intermittent, but daily, worse at night Now with normal sensation and good resolution of her nighttime symptoms 4. Right carpal tunnel syndrome, S/P release DOS: 03/18/24 Pre-operative symptoms intermittent, but daily, worse at night Now with normal sensation and good resolution of her nighttime symptoms Scribed for Yvette Camacho MD by Serjio Varela, medical office supervisor, on 11/23/24 at 12:05 PM, EST. Coding Level of Care Code Est Pt Level 4 (25206) Diagnoses Trigger thumb, left thumb M65.312 Wheelchair dependent Z99.3 DM type 2 (diabetes mellitus, type 2) E11.9 CPT Codes Fracture Care - Fracture Billing Code: Fracture Billing Code ([id number])
== END 2024-11-23 15:42 | disposition home or self-care (01) ==
PROVIDERS: PCP Internal Medicine; Visit Provider Orthopaedic Surgery
DX: M65.312 Trigger thumb, left thumb (principal); Z99.3 Dependence on wheelchair; E11.9 Type 2 diabetes mellitus without complications
CPT/HCPCS: 20550; 99214

== ENCOUNTER → 2024-11-23 11:27 | Outpatient (BNVA) | payer MEDICARE, MEDICAID, OTHER, SELFPAY | PROVIDERS: PCP Internal Medicine; Visit Provider Orthopaedic Surgery | DX: M65.312 Trigger thumb, left thumb (principal); E11.9 Type 2 diabetes mellitus without complications; Z99.3 Dependence on wheelchair | CPT/HCPCS: 20550; 99212; J1100; J2003 ==

== ENCOUNTER 2024-12-20 15:01 | Outpatient (AMB) | payer MEDICARE, MEDICAID, OTHER, SELFPAY ==
[2024-12-20 15:32] VITALS: PULSE 73; TEMP 37.1; O2SAT 95
--- NOTE | 2024-12-20 15:32 | A.OFFVIS_ITS ---
Vital Signs 12/20/24 15:32 Pulse 73 Pulse Source Pulse Oximeter Temp 98.8 F Temp Source Oral Pulse Oximetry (%) 95 Oxygen Delivery Method Room Air Intake Visit Reasons: Wound care refferal/osteo Allergies Adhesive Bandages Allergy (Unknown, Verified 01/03/25 15:06) rash adhesive tape [TAPE,ADHESIVE] Allergy (Unknown, Verified 01/03/25 15:06) RASH amlodipine Allergy (Unknown, Verified 01/03/25 15:06) edema atenolol Allergy (Unknown, Verified 01/03/25 15:06) Bradycardia bisoprolol [From Zebeta] Allergy (Unknown, Verified 01/03/25 15:06) Diarrhea labetalol Allergy (Unknown, Verified 01/03/25 15:06) n/a latex [LATEX] Allergy (Unknown, Verified 01/03/25 15:06) RASH semaglutide [From Ozempic] Adverse Reaction (Intermediate, Verified 01/03/25 15:06) Diarrhea vicodin Allergy (Unknown, Uncoded 11/23/24 11:53) heart palpitation HPI HPI Wound care refferal/osteo: Details: She is referred for usp right great toe wound. She has seen Wound Care and toe OM bone fragment with enterococcus. Vascular exam unremarkable. [facility] Medical History (Updated 01/05/25 @ 16:44 by Mona Stauffer MD) Osteomyelitis Bunion of right foot Hyperglycemia Morbid obesity Foot callus Neuropathy Edema Urinary retention Plantar fasciitis Obesity TONI on CPAP Osteoarthritis Spinal stenosis Hypertension Surgical History History of carpal tunnel surgery H/O foot surgery History of tonsillectomy H/O colonoscopy History of lumbar surgery Family History Father History of heart attack Mother HTN (hypertension) Stroke Brother Stomach cancer Brother History of heart attack HTN (hypertension) Diabetes mellitus Lung cancer Brother Bladder cancer Heart attack Social History Housing: House Alcohol intake: never Patient Tobacco Use Status: Never used Tobacco e-Cigarette/Vaping Use: Never Used Second Hand Smoke Exposure: No service: No Current occupational status: disabled Current occupation: right hand dominant Cognitive needs: No Hearing needs: No Vision needs: Yes Review of Systems Const All systems reviewed & are unremarkable except as noted in HPI and below Physical Exam Vital Signs: Last Vital Signs Temp 98.8 F 12/20/24 15:32 Pulse 73 12/20/24 15:32 Pulse Ox 95 12/20/24 15:32 Oxygen Delivery Method Room Air 12/20/24 15:32 Const General: cooperative Orientation/consciousness: patient oriented x3 HEENT Head: Yes normal to inspection Face and sinus: Yes normal facial exam Mouth: Normal oral and palatal mucosa present Teeth and gingiva: dentition normal Eyes General: appearance normal, both eyes and all related structures Pupils: Equal, round and reactive pupils present Resp Effort & Inspection: normal respiratory effort Cardio Rate: regular rate Rhythm: regular rhythm GI Palpation (GI): Soft to palpation and nontender General: Yes no CVA tenderness Back/Spine/Pelvis Back: no CVA tenderness Skin General skin exam: no rashes or lesions noted Neuro General: patient oriented x3 and moves all extremities Cranial nerves: Yes Equal, round and reactive pupils present Extrem Other: right great toe erythema Psych Appearance: grossly normal Assessment & Plan Assessment & Plan (1) Osteomyelitis: Comment: She has enterococcus OM Code(s): M86.9 - Osteomyelitis, unspecified Category: Medical Plan: Suppressive therapy attempt with po linezolid (IV and po equally bioavailable) See in two weeks. Medications: New linezolid 600 mg PO Q12H 56 tabs 0RF 28 days Coding Level of Care Code Est Pt Level 3 (96025) Diagnoses Osteomyelitis M86.9
== END 2024-12-20 16:35 | disposition home or self-care (01) ==
PROVIDERS: PCP Internal Medicine; Visit Provider Internal Medicine
DX: M86.9 Osteomyelitis, unspecified (principal)
CPT/HCPCS: 99213

== ENCOUNTER → 2024-12-20 15:01 | Outpatient (BNVA) | payer MEDICARE, MEDICAID, OTHER, SELFPAY | PROVIDERS: PCP Internal Medicine; Visit Provider Internal Medicine | DX: M86.9 Osteomyelitis, unspecified (principal) | CPT/HCPCS: 99212 ==

== ENCOUNTER 2025-01-03 15:06 | Outpatient (AMB) | payer MEDICARE, MEDICAID, OTHER, SELFPAY ==
--- NOTE | 2025-01-03 14:55 | MHC.OFFVIS ---
Vital Signs 01/03/25 15:06 Pulse 73 Pulse Source Pulse Oximeter Temp 98.8 F Temp Source Oral Pulse Oximetry (%) 96 Oxygen Delivery Method Room Air Intake Visit Reasons: 2 week follow up osteo toe Allergies Adhesive Bandages Allergy (Unknown, Verified 01/03/25 15:06) rash adhesive tape [TAPE,ADHESIVE] Allergy (Unknown, Verified 01/03/25 15:06) RASH amlodipine Allergy (Unknown, Verified 01/03/25 15:06) edema atenolol Allergy (Unknown, Verified 01/03/25 15:06) Bradycardia bisoprolol [From Zebeta] Allergy (Unknown, Verified 01/03/25 15:06) Diarrhea labetalol Allergy (Unknown, Verified 01/03/25 15:06) n/a latex [LATEX] Allergy (Unknown, Verified 01/03/25 15:06) RASH semaglutide [From Ozempic] Adverse Reaction (Intermediate, Verified 01/03/25 15:06) Diarrhea vicodin Allergy (Unknown, Uncoded 11/23/24 11:53) heart palpitation HPI HPI 2 week follow up osteo toe: Details: She is week 2/6 of linezolid. She feels foot is better and has some nausea but otherwise tolerating medicine. [facility] Medical History Osteomyelitis Bunion of right foot Hyperglycemia Morbid obesity Foot callus Neuropathy Edema Urinary retention Plantar fasciitis Obesity TONI on CPAP Osteoarthritis Spinal stenosis Hypertension Surgical History History of carpal tunnel surgery H/O foot surgery History of tonsillectomy H/O colonoscopy History of lumbar surgery Family History Father History of heart attack Mother HTN (hypertension) Stroke Brother Stomach cancer Brother History of heart attack HTN (hypertension) Diabetes mellitus Lung cancer Brother Bladder cancer Heart attack Social History Housing: House Alcohol intake: never Patient Tobacco Use Status: Never used Tobacco e-Cigarette/Vaping Use: Never Used Second Hand Smoke Exposure: No service: No Current occupational status: disabled Current occupation: right hand dominant Cognitive needs: No Hearing needs: No Vision needs: Yes Review of Systems Const All systems reviewed & are unremarkable except as noted in HPI and below Physical Exam Vital Signs: Last Vital Signs Temp 98.8 F 01/03/25 15:06 Pulse 73 01/03/25 15:06 Pulse Ox 96 01/03/25 15:06 Oxygen Delivery Method Room Air 01/03/25 15:06 Const General: cooperative Orientation/consciousness: patient oriented x3 HEENT Head: Yes normal to inspection Mouth: Normal oral and palatal mucosa present Eyes General: appearance normal, both eyes and all related structures Pupils: Equal, round and reactive pupils present Resp Effort & Inspection: normal respiratory effort Cardio Rate: regular rate Rhythm: regular rhythm GI Palpation (GI): Soft to palpation and nontender General: Yes no CVA tenderness Back/Spine/Pelvis Back: no CVA tenderness Skin General skin exam: no rashes or lesions noted Neuro General: patient oriented x3 Cranial nerves: Yes CN's II-XII intact bilaterally and Yes Equal, round and reactive pupils present Extrem General: Yes normal to inspection Psych Appearance: grossly normal Assessment & Plan Assessment & Plan (1) Osteomyelitis: Comment: She has enterococcus OM,better looking foot Code(s): M86.9 - Osteomyelitis, unspecified Category: Medical Plan: See in two weeks. Continue linezolid. Coding Level of Care Code Est Pt Level 3 (66272) Diagnoses Osteomyelitis M86.9
[2025-01-03 15:06] VITALS: PULSE 73; TEMP 37.1; O2SAT 96
--- OUTSIDE RECORDS SUMMARY | 2025-01-03 17:24 | XMS_ITS ---
Author Organization [facility] Address [address] [facility] [place] [address] Care Team Providers Care [employer] Officer Name Role Phone Yolanda Jack MD Primary Care Provider Unavaila apolinar Enoc Dickensmie Unavailable [phone] Allergies Allergen (clinical drug ingredient) Drug/Non Drug Allergy documented on EMR Reaction Allergy Type Onset Date Status Adhesive rash Allergy Active Latex Latex rash Allergy Active REASON FOR VISIT At Risk Footcare Medications Medication SIG (Take, Route, Frequency, Duration) Notes Start Date End Date Status Aspir-Low Active Acidophilus Orally Active Carvedilol Active CeleBREX 200 MG 1 capsule with food Orally Twice a day Active Rosuvastatin Calcium Active Acetaminophen Extra Strength 500 MG 2 tablets as needed Orally every 6 hrs for 14 days 11/11/2018 Active Bactrim DS 800-160 MG 1 tablet Orally Twice a day for 10 day(s) 11/27/2018 Not-Taking Spironolactone 25 MG 1 tablet Orally Active Keflex 500 MG 1 capsule Orally every 12 hrs for 10 day(s) 11/20/2018 Not-Taking Ampicillin 500 MG 1 capsule 1 hour before or 2 hours after a meal Orally every 6 hrs for 10 day(s) 12/01/2018 Not-Taking Atenolol 50 MG 1 tablet Orally twice daily Not-Taking rOPINIRole HCl 2 MG 1 tablet Orally Once a day Not-Taking Keflex 500 MG 1 capsule Orally every 12 hrs for 15 days 12/24/2018 Not-Taking Lasix 40 MG Orally BID Not-Gustavo ing Ibuprofen 800 MG 1 tablet with food or milk as needed Orally Three times a day for 30 days 11/11/2018 Not-Taking Iodosorb 0.9 % as directed Externally as needed PRN Not-Taking Potassium Chloride 20 MEQ Orally Once a day Not-Taking metFORMIN HCl 500 MG 1 tablet with a meal Orally Once a day for 30 day(s) Not-Taking Ozempic .5 inject 1 a month Not-Taking Crestor Not-Taking Vitamin D 1000 UNIT 1 tablet Orally Once a day Active Extra-Depth Diabetic Shoes with 3 Pair Custom heat-molded multi-density innersoles . for 1 year . Dx:hammertoes with hx of ulcers for . 04/27/2014 Active vitamin Active Orthopedic Extra Depth Shoes With Custom Heat Molded Multidensity Innersoles as directed Wear Daily for as needed 12/13/2020 Not-Taking Extra Depth Diabetic Shoes with 3 Pair Custom heat-molded multi-density innersoles for 1 year Dx: 07/01/2024 Active Lyrica 150 MG Orally Twice a day Active oxyBUTYnin Not-Takin g PriLOSEC Active Terazosin HCl 10 MG Orally 2 po QD Active Tylenol Arthritis Pain 650 mg 1 tablet twice daily Active Irbesartan 300 MG 1 tablet Orally Once a day Active Fish Oil Active Furosemide 40mg Active hydrALAZINE HCl 50 MG 1 tablet with food Orally Twice Daily 3x daily Active Gabapentin 300 MG 3 capsules Orally Once a day Active Social History Tobacco Use: Social History Observation Description Date Details (start date - stop date) Never Smoker NA - NA Tobacco Use/Smoking Question Answer Notes Are you a: nonsmoker Additional Findings: Tobacco Non-User Current no n-smoker Tobacco use other than smoking: Question Answer Notes Are you an other tobacco user? No Vital Signs Height 5ft1in in 10/11/2024 Weight 290 lbs 10/11/2024 BMI 54.79 kg/m2 10/11/2024 Blood pressure systolic 116 mm Hg 10/11/20 24 Blood pressure diastolic 63 mm Hg 024 Procedures Procedure Date Ordered Date Performed Result Body Sit e 79492-SZNH SKIN LESIONS, 2 TO 4 10/11/2024 N/A A6376-MURSSSUR DYSTROPHIC NAILS ANY # 10/11/2024 N/A Encounters Encounter Location Date Provider Diagnosis [facility] [address] [place] [address] 10/11/2024 Julee Black Type 2 diabetes mellitus with diabetic polyneuropathy E11.42 Assessments Encounter Date Diagnosis (ICD Code) Assessment Notes Treatment Notes Treatment Clinical Notes Section Notes 10/11/2024 Type 2 diabetes mellitus with diabetic polyneuropathy (ICD-10 - E11.42) Plan Of Treatment Pending Test Test Name Order Date 27877-TCTH SKIN LESIONS, 2 TO 4 10/11/20 24 Z1683-SDHNRHDH DYSTROPHIC NAILS ANY # Next Appt Details Follow Up: prn, Reason: Provider Name:Julee A Maninder , 01/10/2025 09:15:00 AM, [address] [place], [address], Procedure Notes * Category Sub-Category Detail Notes Keratoma Treatment Parring or Cutting o f Benign Hyperkeratotic Lesion(s) (-56) 2-4 Lesions - The Benign hyperkeratotic lesions, (4 ) in total, locations as stated and described in exam, were pared, and/or cut utilizing a sterile 15 blade, tissue nippers, and/or power dremel instrumentation - 66661 Nail Reduction Nail Reduction Trimming of dyst rophic nails performed to reduce/remove overall nail length and girth, by manual and electrical means with use of a nail nipper and/or dremel, to more viable healthy nail plate or bed tissue 6-10 (G0127) Progress Notes * Gina MCCULLOUGH MDOB:[birth year] (64 yo F)Acc No.[id number]:10/11/2024 Progress Note Patient:?Gina MCCULLOUGH Provider:?Julee Dickens DPM :1960???Age:64 Y???Sex:Female D ate:10/11/2024 Address:[address] [place] [address], [address], [id number] Pcp:Yolanda Jack MD Subjective: * Chief Complaints: * ???At Risk Footcare * HPI: ???At Risk footcare:?Pt States Last PCP Visit:?Date?04/14/2024 ?B/l dorsal 1st ulcerations- DSD intact pt being seen at [facility] once a week and [facility] is twice a week. Pt seeing at [facility]? [facility]. * ROS:?General/Constitutional:?Nausea?denies.?Vomiting?denies.?Hunger Thirst?denies.?Loss appetite?denies.?Chills?denies.?Fatigue?denies.?Fever?denies.?Night Sweats?denies.?Unexplained weight loss?denies.?Unexplained weight gain?denies.?HEENTM:?Dentures?denies.?Dizziness?denies.?Glasses/contacts?admits.?Retinopathy?den ies.?Blurred/double vision?denies.?TMJ?denies.?Discharge/drainage?denies.?Implants?denies.?Sore throat?denies.?Dental implants?denies.?Hard of hearing ?denies.?Difficulty chewing/swallowing/speaking?denies.?Nose bleeds?denies.?Sore mouth?denies.?Respiratory:?On O xygen?denies.?Pneumonia/pleurisy?denies.?Bronchitis?denies.?Emphysema?denies.?Co ughing?denies.?Cough blood?denies.?Shortness of breath?denies.?Wheezing?denies.?Cardiovascular:?Pacemaker?denies.?MVP?denies.?WPW?denies.?CHF?denies.?Heart attack?denies.?Septal defect?denies.?Rapid beat?denies.?Chest pain ?denies.?Atrial Fib.?denies.?Murmur/Palpitations?denies.?Gastrointestinal:?Hemorrhoids?denies.?Stomach/Abdominal pain?denies.?Dark blood stool?denies.?Irritable bowel ?denies.?Constipation?denies.?Diarrhea?denies.?Hematology:?Swelling?denies.?Clots?denies.?Varicose Veins?denies.?Bruising?denies.?Bleeding problem?denies.?Genitourinary:?Blood urine?denies.?Frequent/Painfu/urination/bladder control?denies.?Kidney stones?denies.?Infection (UTI)?denies.?Nephropathy?denies.?sex trans dis (STD)?denies.?Prostate?denies.?Musculoskeletal:?Hammertoes?denies.?Bunions?denies.?Back Pain?denies.?Muscle Cramps/ Resting?denies.?Muscle cramps / walking?denies.?Generalized aches and pains?denies.?Weakness?denies.?Integ.:?Peters?denies.?Scars?denies.?Corns/calluses?denies.?Ingrown nails?denies.?Painful nails?denies.?Open Sores?, admits.?Rashes?denies.?Neurologic:?Difficulty sleeping?denies.?Brain disorder?denies.?Numbness?admits.?Balance t rouble?denies.?Confusion?denies.?Fainting/blackouts?denies.?Tingling?admits.?Frankie mors?denies.? * Medical History:? * Surgical History:?spinal angela nosis surgery tonsillectomy 1971Hammertoe Repair w/K-Wire 2nd Left 08/23/2015Colonoscopy 04/03/2018[facility] R, LVI 2nd R SE: Sag Saw & Kwire 11/18/2018 * Hospitalization/Major Diagno stic Procedure:?[facility] lumbar fusion 04/14/2017[facility]- Right foot Ulcer[facility]/06[facility]- 09/10/19[facility] Visit 3 times 10/18,, 11/2019 * Family History:?Mother: roselia e, foot problems,poor circulation, diagnosed with Unspecified essential hypertension, Unspecified cerebral artery occlusion with cerebral infarction, Family history of arthritis. Father: , diagnosed with Unspecified heart disease.?Paternal Grand Mother: diagnosed with Diabetic - NIDDM.?Siblings: diagnosed with Other malignant neoplasm of unspecified site, Unspecified heart disease, Diabetic - NIDDM, Unspecified essential hypertension.? * Social History:?Tobacco Use:?Tobacco Use/Smoking?Are you a:?nonsmoker ?Additional Findings: Tobacco Non-User?Current non-smoker ?Tobacco use other than smoking?Are you an other tobacco user??No * Medications:?TakingSpironola ctone 25 MG Tablet 1 tablet Orally Acetaminophen Extra Strength 500 MG Tablet 2 tablets as needed Orally every 6 hrs Acidophilus Tablet Orally Aspir-Low CeleBREX 200 MG Capsule 1 capsule with food Orally Twice a day Carvedilol Rosuvastatin Calcium Furosemide , Notes to Pharmacist: 40mgFish Oil Gabapentin 300 MG Capsule 3 capsules Orally Once a day hydrALAZINE HCl 50 MG Tablet 1 tablet with food Orally Twice Daily , Notes to Pharmacist: 3x dailyIrbesartan 300 MG Tablet 1 tablet Orally Once a day Lyrica 150 MG Capsule Orally Twice a day PriLOSEC Terazosin HCl 10 MG Capsule Orally 2 po QD Tylenol Arthritis Pain 650 mg 1 tablet twice daily Vitamin D 1000 UNIT Tablet 1 tablet Orally Once a day vitamin Extra- Depth Diabetic Shoes with 3 Pair Custom heat-molded multi-density innersoles . . for 1 year . Dx:hammertoes with hx of ulcers Extra Depth Diabetic Shoes with 3 Pair Custom heat-molded multi-density innersoles for 1 year Dx: Taking Spironolactone 25 MG Tablet 1 tablet Orally Taking Acetaminophen Extra Strength 500 MG Tablet 2 tablets as needed Orally every 6 hrs Taking Acidophilus Tablet Orally Taking Aspir-Low Taking CeleBREX 200 MG Capsule 1 capsule with food Orally Twice a day Taking Carvedilol Taking Rosuvastatin Calcium Taking Furosemide , Notes to Pharmacist: 40mgTaking Fish Oil Taking Gabapentin 300 MG Capsule 3 capsules Orally Once a day Taking hydrALAZINE HCl 50 MG Tablet 1 tablet with food Orally Twice Daily , Notes to Pharmacist: 3x dailyTaking Irbesartan 300 MG Tablet 1 tablet Orally Once a day Taking Lyrica 150 MG Capsule Orally Twice a day Taking PriLOSEC Taking Terazosin HCl 10 MG Capsule Orally 2 po QD Taking Tylenol Arthritis Pain 650 mg 1 tablet twice daily Taking Vitamin D 1000 UNIT Tablet 1 tablet Orally Once a day Taking vitamin Taking Extra-Depth Diabetic Shoes with 3 Pair Custom heat-molded multi-density innersoles . . for 1 year . Dx:hammertoes with hx of ulcers Taking Extra Depth Diabetic Shoes with 3 Pair Custom heat-molded multi-density innersoles for 1 year Dx: Not- Taking/PRNoxyBUTYnin Orthopedic Extra Depth Shoes With Custom Heat Molded Multidensity Innersoles as directed Wear Daily Potassium Chloride 20 MEQ Packet Orally Once a day Iodosorb 0.9 % Gel as directed Externally as needed , Notes to Pharmacist: Gerard , Notes to Pharmacist: .5 inject 1 a monthmetFORMIN HCl 500 MG Tablet 1 tablet with a meal Orally Once a day Crestor rOPINIRole HCl 2 MG Tablet 1 tablet Orally Once a day Atenolol 50 MG Tablet 1 tablet Orally twice daily Lasix 40 MG Tablet Orally BID Keflex 500 MG Capsule 1 capsule Orally every 12 hrs Ibuprofen 800 MG Tablet 1 tablet with food or milk as needed Orally Three times a day Ampicillin 500 MG Capsule 1 capsule 1 hour before or 2 hours after a meal Orally every 6 hrs Keflex 500 MG Capsule 1 capsule Orally every 12 hrs Bactrim DS 800-160 MG Tablet 1 tablet Orally Twice a day Medication List reviewed and reconciled with the patientNot- Taking/PRN oxyBUTYnin Not-Taking/PRN Orthopedic Extra Depth Shoes With Custom Heat Molded Multidensity Innersoles as directed Wear Daily Not-Taking/PRN Potassium Chloride 20 MEQ Packet Orally Once a day Not-Taking/PRN Iodosorb 0.9 % Gel as directed Externally as needed , Notes to Pharmacist: PRNNot-Taking/PRN Roby , Notes to Pharmacist: .5 inject 1 a monthNot-Taking/PRN metFORMIN HCl 500 MG Tablet 1 tablet with a meal Orally Once a day Not-Taking/PRN Crestor Not-Taking/PRN rOPINIRole HCl 2 MG Tablet 1 tablet Orally Once a day Not-Taking/PRN Atenolol 50 MG Tablet 1 tablet Orally twice daily Not-Taking/PRN Lasix 40 MG Tablet Orally BID Not-Taking/PRN Keflex 500 MG Capsule 1 capsule Orally every 12 hrs Not-Taking/PRN Ibuprofen 800 MG Tablet 1 tablet with food or milk as needed Orally Three times a day Not-Taking/PRN Ampicillin 500 MG Capsule 1 capsule 1 hour before or 2 hours after a meal Orally every 6 hrs Not-Taking/PRN Keflex 500 MG Capsule 1 capsule Orally every 12 hrs Not- Taking/PRN Bactrim DS 800-160 MG Tablet 1 tablet Orally Twice a day Medication List reviewed and reconciled with the patient * Allergies:?Adhesive: rashLat ex: rashyes[Allergies Verified] Objective: * Vitals:?Ht: 5ft1in, Wt:290, BMI:54.79, Shoe size: 9.5WWW, BP:116/63mm Hg, BS: not taken, Ht-cm: 154.94 cm, Wt-k.54 kg. * ???Past Orders: ???Lab:HEMOGLOBIN A1C (GLYCO HEMOGLOBIN) (Order Date - 03/10/2024) (Collection Date & Time - 03/10/2024 02:39 PM) ? Value Reference Range ?HEMOGLOBIN A1C (HH) 5.5 * Examination: ???Ophthalmology Referral: ?DIABETES EYE EXAM?Nails: ?NAILS are:?elongated,overgrown, and dystrophic, 1-5 B/L.?Dermatologic: ?SKIN FINDINGS:?Skin exam reveals Keratotic lesion(s) located at B/L , Plantar Heel(s), Medial-plantar Midfoot, B/L.?ULCER:?DSD intact dorsal b/l feet.?Neurological: ?SENSORY:?Neurological exam demonstrates , reduced light touch sensation , reduced sharp/dull pin prick discrimination , reduced vibration sensation , reduced proprioception sensation , 5.07 monofilament test performed at plantar aspects of 5 varied sites per foot shows sensation , absent , B/L.?TINEL'S COMPRESSION:? Negative, Saphenous nerve distribution, B/L.?General Examination: ?GENERAL APPEARANCE:?Reveals a pleasant, alert, well nourished, well- developed, well hydrated individual, who demonstrates proper attention to hygiene/body habitus, and is in no acute distress, Pt serves as own historian for office visit today.?ORIENTED:?person, place, and time.?FOOT EXAM:? Assessment: * Assessment: 1.?Type 2 diabetes mellitus with diabetic polyneuropathy - E11.42??? Plan: * Treatment: * Procedures:?Keratoma Treatment:?Parring or Cutting of Benign Hyperkeratotic Lesion(s)?(-56) 2-4 Lesions - The Benign hyperkeratotic lesions, (4 ) in total, locations as stated and described in exam, were pared, and/or cut utilizing a sterile 15 blade, tissue nippers, and/or power dremel instrumentation - 23418.?Nail Reduction:?Nail Reduction?Trimming of dystrophic nails performed to reduce/remove overall nail length and girth, by manual and electrical means with use of a nail nipper and/or dremel, to more viable healthy nail plate or bed tissue 6-10 (G0127).? * Procedure Codes:?G0127 DEMETRIUS ING DYSTROPHIC NAILS ANY #, Modifiers: GY [address]697 TRIM SKIN LESIONS, 2 TO 4, Modifiers: GY * Follow Up:?prn * Images: * Sign off status: Completed true * Provider:?Julee Dickens DPM Date:?2023 Generated for Wilder ibarra/Cuong/eTbarbarasmitting on:?01/03/2025 05:24 PM EST History and Physical Notes * HPI (History of Present Illness) Category Sub-Category Detail Notes Category Not es At Risk footcare Pt States Last PCP Visit: Date: 4 B/l dorsal 1st ulcerations- DSD intact pt being seen at [facility] once a week and [facility] is twice a week. Pt seeing at [facility] Examination Category Sub-Category Detail Notes Category Not es Neurological SENSORY: Neurological exa m demonstrates , reduced light touch sensation , reduced sharp/dull pin prick discrimination , reduced vibration sensation , reduced proprioception sensation , 5.07 monofilament test performed at plantar aspects of 5 varied sites per foot shows sensation , absent , B/L TINEL'S COMPRESSION: Negative, Saphenous nerve distribution, B/L Dermatologic SKIN FINDINGS: Skin exam reveal s Keratotic lesion(s) located at B/L , Plantar Heel(s), Medial-plantar Midfoot, B/L ULCER: DSD intact dorsal b/ l feet General Examination GENERAL APPEARANCE: Reveals a pleasant, alert, well nourished, well-developed, well hydrated individual, who demonstrates proper attention to hygiene/body habitus, and is in no acute distress, Pt serves as own historian for office visit today FOOT EXAM: Lower Extremity Neurological Exa m performed:: Yes Visual exam of foot performed:: Yes Date: 10/11/2024 Sensory testing performed:: sensations d iminished Sensory and motor testing performed:: se nsations diminished Pedal pulse taking performed:: 2+ ORIENTED: person, place, and t rafael Ophthalmology Referral DIABETES EYE EXAM Procedure Perform ed:: Yes ?Date of Exam Performed: 09/09/2024 Findings of Diabetic Eye Exam:: no retin opathy Nails NAILS are: elongated,overgrown, and dys trophic, 1-5 B/L
--- OUTSIDE RECORDS SUMMARY | 2025-01-03 17:24 | XMS_ITS ---
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 Name Role Phone Yolanda Jack MD Primary Care Provider Unavaila apolinar Maninder Julee Unavailable [phone] Allergies Allergen (clinical drug ingredient) Drug/Non Drug Allergy documented on EMR Reaction Allergy Type Onset Date Status Adhesive rash Allergy Active Latex Latex rash Allergy Active REASON FOR VISIT Pcp-04/14/24, Painful Nail(s) aggrevated by shoes and causing difficulty standing/walking., At RiskFootcare, Foot pain Medications Medication SIG (Take, Route, Frequency, Duration) Notes Start Date End Date Status Lyrica 150 MG Orally Twice a day Active hydrALAZINE HCl 50 MG 1 tablet with food Orally Twice Daily 3x daily Active Irbesartan 300 MG 1 tablet Orally Once a day Active Fish Oil Active Gabapentin 300 MG 3 capsules Orally Once a day Active Rosuvastatin Calcium Active Furosemide Active CeleBREX 200 MG 1 capsule with food Orally Twice a day Active Carvedilol Active Aspir-Low Active Acidophilus Orally Active Spironolactone 25 MG 1 tablet Orally Active Acetaminophen Extra Strength 500 MG 2 tablets as needed Orally every 6 hrs for 14 days 11/11/2018 Active Keflex 500 MG 1 capsule Orally every 12 hrs for 10 day(s) 11/20/2018 Not-Taking Bactrim DS 800-160 MG 1 tablet Orally Twice a day for 10 day(s) 11/27/2018 Not-Taking Lasix 40 MG Orally BID Not-Gustavo ing Keflex 500 MG 1 capsule Orally every 12 hrs for 15 days 12/24/2018 Not-Taking Atenolol 50 MG 1 tablet Orally twice daily Not-Taking Ibuprofen 800 MG 1 tablet with food or milk as needed Orally Three times a day for 30 days 11/11/2018 Not-Taking Ampicillin 500 MG 1 capsule 1 hour before or 2 hours after a meal Orally every 6 hrs for 10 day(s) 12/01/2018 Not-Taking rOPINIRole HCl 2 MG 1 tablet Orally Once a day Not-Taking Crestor Not-Taking Ozempic .5 inject 1 a month Not-Taking metFORMIN HCl 500 MG 1 tablet with a meal Orally Once a day for 30 day(s) Not-Taking Iodosorb 0.9 % as directed Externally as needed PRN Not-Taking Vitamin D 1000 UNIT 1 tablet Orally Once a day Active vitamin Active Potassium Chloride 20 MEQ Orally Once a day Not-Taking Extra-Depth Diabetic Shoes with 3 Pair Custom heat-molded multi-density innersoles . for 1 year . Dx:hammertoes with hx of ulcers for . 04/27/2014 Active Orthopedic Extra Depth Shoes With Custom Heat Molded Multidensity Innersoles as directed Wear Daily for as needed 12/13/2020 Not-Taking Tylenol Arthritis Pain 650 mg 1 tablet twice daily Active oxyBUTYnin Active Terazosin HCl 10 MG Orally 2 po QD Active PriLOSEC Active Extra Depth Diabetic Shoes with 3 Pair Custom heat-molded multi-density innersoles for 1 year Dx: 07/01/2024 Active Social History Tobacco Use: Social History Observation Description Date Details (start date - stop date) Never Smoker NA - NA Tobacco Use/Smoking Question Answer Notes Are you a: nonsmoker Additional Findings: Tobacco Non-User Current no n-smoker Tobacco use other than smoking: Question Answer Notes Are you an other tobacco user? No Problems Problem Type SNOMED Code ICD Code Onset Dates Problem Status W/U Status Risk Notes Problem Acquired hallux valgus (93427410) Hallux valgus (acquired), left foot (M20.12) Active confirmed Vital Signs Height 5ft1in in 07/01/2024 Weight 290 lbs 07/01/2024 BMI 54.79 kg/m2 07/01/2024 Blood pressure systolic 117 mm Hg 07/01/20 24 Blood pressure diastolic 71 mm Hg 024 Procedures Procedure Date Ordered Date Performed Result Body Sit e 36020-IXUK SKIN LESIONS, 2 TO 4 07/01/2024 N/A G8839-OMCFOWLZ DYSTROPHIC NAILS ANY # 07/01/2024 N/A Encounters Encounter Location Date Provider Diagnosis [facility] [address] [place] [address] 07/01/2024 Julee Dickens Non-pressure chronic ulcer of other part of right foot limited to breakdown of skin L97.511 ; Type 2 diabetes mellitus with diabetic polyneuropathy E11.42 ; Skin ulcer of left great toe with fat layer exposed L97.522 ; Pain in left foot M79.672 ; Pain in left ankle and joints of left foot M25.572 ; Bursitis of left foot M77.52 ; Hallux valgus (acquired), left foot M20.12 ; Pain in right foot M79.671 ; Pain in right ankle and joints of right foot M25.571 ; Bursitis of right foot M77.51 ; Hallux valgus (acquired), right foot M20.11 ; Hammertoe of left foot M20.42 and Hammer toe of right foot M20.41 Assessments Encounter Date Diagnosis (ICD Code) Assessment Notes Treatment Notes Treatment Clinical Notes Section Notes 07/01/2024 Non-pressure chronic ulcer of other part of right foot limited to breakdown of skin (ICD-10 - L97.511) 07/01/2024 Type 2 diabetes mellitus with diabetic polyneuropathy (ICD-10 - E11.42) 07/01/2024 Skin ulcer of left great toe with fat layer exposed (ICD-10 - L97.522) 07/01/2024 Pain in left foot (ICD-10 - M79.672) 07/01/2024 Pain in left ankle and joints of left foot (ICD-10 - M25.572) 07/01/2024 Bursitis of left foot (ICD-10 - M77.52) 07/01/2024 Hallux valgus (acquired), left foot (ICD-10 - M20.12) 07/01/2024 Pain in right foot (ICD-10 - M79.671) 07/01/2024 Pain in right ankle and joints of right foot (ICD-10 - M25.571) 07/01/2024 Bursitis of right foot (ICD-10 - M77.51) 07/01/2024 Hallux valgus (acquired), right foot (ICD-10 - M20.11) 07/01/2024 Hammertoe of left foot (ICD-10 - M20.42) 07/01/2024 Hammer toe of right foot (ICD-10 - M20.41) Plan Of Treatment Medication Medication Name Sig Start Date Stop Date Notes Extra Depth Diabetic Shoes w ith 3 Pair Custom heat-molded multi-density innersoles for 1 year Dx: 07/01/2024 Pending Test Test Name Order Date 38522-IWRV SKIN LESIONS, 2 TO 4 07/01/20 24 Q5711-LGZFKGRY DYSTROPHIC NAILS ANY # Next Appt Details Follow Up: 3 Months, Reason: Provider Name:Julee Dickens , 01/10/2025 09:15:00 AM, [address] [place] [address], [phone], Procedure Notes * Category Sub-Category Detail Notes Keratoma Treatment Parring or Cutting o f Benign Hyperkeratotic Lesion(s) 35894 ( 2-4 Lesions ) - The Benign hyperkeratotic lesions, as described above were pared, and/or cut utilizing a sterile 15 blade, tissue nippers, and/or dremel, Nail Reduction Nail Reduction Trimming of dyst rophic nails performed to reduce/remove overall nail length and girth, by manual and electrical means with use of a nail nipper and/or dremel, to more viable healthy nail plate or bed tissue 6-10 (G0127) Progress Notes * Gina MCCULLOUGH MDOB:[birth year] (64 yo F)Acc No.[id number]:07/01/2024 Progress Note Patient:?Gina Mccullough Provider:?Julee Dickens DPM :1960???Age:64 Y???Sex:Female D ate:07/01/2024 [facility] [address] [id number] Pcp:Yolanda Jack MD Subjective: * Chief Complaints: * ???Pcp-04/14/24Painful Nail( s) aggrevated by shoes and causing difficulty standing/walking.At Risk FootcareFoot pain * HPI: ???Skin problems:?Nature:?Open sore.?Location:?1st, , Left (2) 1st right.?Duration:?, several months.?Course:?, improved.?Treatments:?puracol plus wound care product with [facility] woundcare center.?At Risk footcare:?Pt States Last PCP Visit:?Date?04/14/2024 ???Foot Pain:?Location:?, B/L.?Duration:?several years.?Course:?worse.?Aggravated:?any pressure.?Treatments:?rest/alter normal daily activity.? * ROS:?General/Constitutional:?Nausea?denies.?Vomiting?denies.?Hunger Thirst?denies.?Loss appetite?denies.?Chills?denies.?Fatigue?denies.?Fever?denies.?Night Sweats?denies.?Unexplained weight loss?denies.?Unexplained weight gain?denies.?HEENTM:?Dentures?denies.?Dizziness?denies.?Glasses/contacts?admits.?Retinopathy?de nies.?Blurred/double vision?denies.?TMJ?denies.?Discharge/drainage?denies.?Implants?denies.?Sore throat?denies.?Dental implants?denies.?Hard of hearing ?denies.?Difficulty chewing/swallowing/speaking?denies.?Nose bleeds?denies.?Sore mouth?denies.?Respiratory:?On Oxygen?denies.?Pneumonia/pleurisy?denies.?Bronchitis?denies.?Emphysema?denies.?C oughing?denies.?Cough blood?denies.?Shortness of breath?denies.?Wheezing?denies.?Cardiovascular:?Pacemaker?denies.?MVP?denies.?WPW?denies.?CHF?denies.?Heart attack?denies.?Septal defect?denies.?Rapid beat?denies.?Chest pain ?denies.?Atrial Fib.?denies.?Murmur/Palpitations?denies.?Gastrointestinal:?Hemorrhoids?denies.?Stomach/Abdominal pain?denies.?Dark blood stool?denies.?Irritable bowel ?denies.?Constipation?denies.?Diarrhea?denies.?Hematology:?Swelling?denies.?Clots?denies.?Varicose Veins?denies.?Bruising?denies.?Bleeding problem?denies.?Genitourinary:?Blood urine?denies.?Frequent/Painfu/urination/bladder control?denies.?Kidney stones?denies.?Infection (UTI)?denies.?Nephropathy?denies.?sex trans dis (STD)?denies.?Prostate?denies.?Musculoskeletal:?Hammertoes?denies.?Bunions?denies.?Back Pain?denies.?Muscle Cramps/ Resting?denies.?Muscle cramps / walking?denies.?Generalized aches and pains?denies.?Weakness?denies.?Integ.:?Peters?denies.?Scars?denies.?Corns/calluses?denies.?Ingrown nails?denies.?Painful nails?denies.?Open Sores?denies.?Rashes?denies.?Neurologic:?Difficulty sleeping?denies.?Brain disorder?denies.?Numbness?admits.?Balance trouble?denies.?Confusion?denies.?Fainting/blackouts?denies.?Tingling?admits.?Tr emors?denies.? * Medical History:? * Surgical History:?spinal angela nosis surgery tonsillectomy 1971Hammertoe Repair w/K-Wire 2nd Left 08/23/2015Colonoscopy 04/03/2018[facility], HT 2nd R SE: Sag Saw & Kwire 11/18/2018 * Hospitalization/Major Diagno stic Procedure:?[facility] fusion 04/14/2017[facility] 3 times 10/18,, 11/2019 * Family History:?Mother: roselia banks, foot problems,poor circulation, diagnosed with Family history of arthritis, Unspecified essential hypertension, Unspecified cerebral artery occlusion with cerebral infarction. Father: , diagnosed with Unspecified heart disease.?Paternal Grand Mother: diagnosed with Diabetic - NIDDM.?Siblings: diagnosed with Diabetic - NIDDM, Unspecified essential hypertension, Unspecified heart disease, Other malignant neoplasm of unspecified site.? * Social History:?Tobacco Use:?Tobacco Use/Smoking?Are you a:?nonsmoker ?Additional Findings: Tobacco Non-User?Current non-smoker ?Tobacco use other than smoking?Are you an other tobacco user??No ???Miscellaneous:?Caffeine: yes, frequency:, 1-2 cups per day. ?no Children, none. ?Exercise: yes, Chair excersizes. ?Marital status: . 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 * Medications:?TakingSpironola ctone 25 MG Tablet 1 tablet Orally Acetaminophen Extra Strength 500 MG Tablet 2 tablets as needed Orally every 6 hrsAcidophilus Tablet Orally Aspir-Low CeleBREX 200 MG Capsule 1 capsule with food Orally Twice a dayCarvedilol Rosuvastatin Calcium Furosemide Fish Oil Gabapentin 300 MG Capsule 3 capsules Orally Once a dayhydrALAZINE HCl 50 MG Tablet 1 tablet with food Orally Twice Daily, Notes: 3x dailyIrbesartan 300 MG Tablet 1 tablet Orally Once a dayLyrica 150 MG Capsule Orally Twice a dayPriLOSEC oxyBUTYnin Terazosin HCl 10 MG Capsule Orally 2 po QDTylenol Arthritis Pain 650 mg 1 tablet twice dailyVitamin D 1000 UNIT Tablet 1 tablet Orally Once a dayvitamin Extra-Depth Diabetic Shoes with 3 Pair Custom heat-molded multi-density innersoles . . for 1 year . Dx:hammertoes with hx of ulcersTaking Spironolactone 25 MG Tablet 1 tablet Orally Taking Acetaminophen Extra Strength 500 MG Tablet 2 tablets as needed Orally every 6 hrsTaking Acidophilus Tablet Orally Taking Aspir-Low Taking CeleBREX 200 MG Capsule 1 capsule with food Orally Twice a dayTaking Carvedilol Taking Rosuvastatin Calcium Taking Furosemide Taking Fish Oil Taking Gabapentin 300 MG Capsule 3 capsules Orally Once a dayTaking hydrALAZINE HCl 50 MG Tablet 1 tablet with food Orally Twice Daily, Notes: 3x dailyTaking Irbesartan 300 MG Tablet 1 tablet Orally Once a dayTaking Lyrica 150 MG Capsule Orally Twice a dayTaking PriLOSEC Taking oxyBUTYnin Taking Terazosin HCl 10 MG Capsule Orally 2 po QDTaking Tylenol Arthritis Pain 650 mg 1 tablet twice dailyTaking Vitamin D 1000 UNIT Tablet 1 tablet Orally Once a dayTaking vitamin Taking Extra-Depth Diabetic Shoes with 3 Pair Custom heat-molded multi-density innersoles . . for 1 year . Dx:hammertoes with hx of ulcersNot- Taking/PRNOrthopedic Extra Depth Shoes With Custom Heat Molded Multidensity Innersoles as directed Wear DailyPotassium Chloride 20 MEQ Packet Orally Once a dayIodosorb 0.9 % Gel as directed Externally as needed, Notes: PRNOzempic , Notes: .5 inject 1 a monthmetFORMIN HCl 500 MG Tablet 1 tablet with a meal Orally Once a dayCrestor rOPINIRole HCl 2 MG Tablet 1 tablet Orally Once a dayAtenolol 50 MG Tablet 1 tablet Orally twice dailyLasix 40 MG Tablet Orally BIDKeflex 500 MG Capsule 1 capsule Orally every 12 hrsIbuprofen 800 MG Tablet 1 tablet with food or milk as needed Orally Three times a dayAmpicillin 500 MG Capsule 1 capsule 1 hour before or 2 hours after a meal Orally every 6 hrsKeflex 500 MG Capsule 1 capsule Orally every 12 hrsBactrim DS 800-160 MG Tablet 1 tablet Orally Twice a dayMedication List reviewed and reconciled with the patientNot- Taking/PRN Orthopedic Extra Depth Shoes With Custom Heat Molded Multidensity Innersoles as directed Wear DailyNot-Taking/PRN Potassium Chloride 20 MEQ Packet Orally Once a dayNot-Taking/PRN Iodosorb 0.9 % Gel as directed Externally as needed, Notes: PRNNot-Taking/PRN Ozempic , Notes: .5 inject 1 a monthNot-Taking/PRN metFORMIN HCl 500 MG Tablet 1 tablet with a meal Orally Once a dayNot-Taking/PRN Crestor Not-Taking/PRN rOPINIRole HCl 2 MG Tablet 1 tablet Orally Once a dayNot- Taking/PRN Atenolol 50 MG Tablet 1 tablet Orally twice dailyNot-Taking/PRN Lasix 40 MG Tablet Orally BIDNot-Taking/PRN Keflex 500 MG Capsule 1 capsule Orally every 12 hrsNot-Taking/PRN Ibuprofen 800 MG Tablet 1 tablet with food or milk as needed Orally Three times a dayNot-Taking/PRN Ampicillin 500 MG Capsule 1 capsule 1 hour before or 2 hours after a meal Orally every 6 hrsNot-Taking/PRN Keflex 500 MG Capsule 1 capsule Orally every 12 hrsNot-Taking/PRN Bactrim DS 800-160 MG Tablet 1 tablet Orally Twice a dayMedication List reviewed and reconciled with the patient * Allergies:?Adhesive: rashLat ex: rashyes[Allergies Verified] Objective: * Vitals:?Ht: 5ft1in, Wt:290, BMI:54.79, Shoe size: 9.5WWW, BP:117/71 mm Hg, BS: not taken, Ht-cm: 154.94 cm, Wt-k.54 kg. * ???Past Orders: ???Lab:HEMOGLOBIN A1C (GLYCO HEMOGLOBIN) (Order Date - 03/10/2024) (Collection Date - 03/10/2024) ? Value Reference Range ?HEMOGLOBIN A1C (HH) 5.5 * Examination: ???Ophthalmology Referral: ?DIABETES EYE EXAM?Nails: ?NAILS are:?elongated,overgrown, and dystrophic, 1-5 B/L.?Dermatologic: ?SKIN FINDINGS:?Skin exam reveals Keratotic lesion(s) located at ?B/L , Heel(s).?ULCER:?Dorsal, 1 MTH, LEFT, LOCATION, SIZE, 10mm X 5mm X 3mm, BASE, granular, RIM, hyperkeratotic, UNDERMINING, absent, TRACKING, Full thickness breakdown of skin, DRAINAGE, serosanguineous, mild, NECROTIC TISSUE, loosely-adherent, yellow slough, MALODOR, absent, CALOR, absent, ERYTHEMA, present PAIN ON PALPATION, absent , Dorsal 1st IPj and MPJ?resolved.?Neurological: ?SENSORY:?Neurological exam demonstrates , reduced light touch sensation , reduced sharp/dull pin prick discrimination , reduced vibration sensation , reduced proprioception sensation , 5.07 monofilament test performed at plantar aspects of 5 varied sites per foot shows sensation , absent , B/L.?TINEL'S COMPRESSION:? Negative, Saphenous nerve distribution, B/L.?Orthopedic: ?MUSCLE STRENGTH:?5/5 all groups in a symmetrical fashion , B/L.?FOOT MORPHOLOGY:?Pes Planus structure , Semi-rigid , B/L.?BUNION:?Medially prominent 1st MPJ, (+) Pain on palpation, inflammation present medially, Lateral tracking 1st MPJ incompletely reducible, B/L.there is evidence of shoe producing skin irritation.?DIGITAL DEFORMITIES:?Digital contracture, PIPJ, 2-5 B/L, incompl-reducible with WB, or to push-up test, no over, nor underlapping ,there is evidence of shoe producing skin irritation.?General Examination: ?GENERAL APPEARANCE:?Reveals a pleasant, alert, well nourished, well- developed, well hydrated individual, who demonstrates proper attention to hygiene/body habitus, and is in no acute distress, Pt serves as own historian for office visit today.?ORIENTED:?person, place, and time.? Assessment: * Assessment: 1.?Type 2 diabetes mellitus with diabetic polyneuropathy - E11.42?2.?Non- pressure chronic ulcer of other part of right foot limited to breakdown of skin - L97.511 (Primary)?3. Skin ulcer of left great toe with fat layer exposed - L97.522?4.?Pain in left foot - M79.672?5.?Pain in left ankle and joints of left foot - M25.572?6.?Bursitis of left foot - M77.52?7.?Hallux valgus (acquired), left foot - M20.12?8.?Pain in right foot - M79.671?9.?Pain in right ankle and joints of right foot - M25.571?10.?Bursitis of right foot - M77.51?11.?Hallux valgus (acquired), right foot - M20.11?12.?Hammertoe of left foot - M20.42?13.?Hammer toe of right foot - M20.41? Plan: * Treatment: 2.?Hammertoe of left foot? Start Extra Depth Diabetic Shoes with 3 Pair Custom heat-molded multi-density innersoles, for 1 year, Dx:, 1 pair shoes/3 sets inserts, Refills 0.?? * Procedures:?Keratoma Treatment:?Parring or Cutting of Benign Hyperkeratotic Lesion(s)?81430 ( 2-4 Lesions ) - The Benign hyperkeratotic lesions, as described above were pared, and/or cut utilizing a sterile 15 blade, tissue nippers, and/or dremel, ?.?Nail Reduction:?Nail Reduction?Trimming of dystrophic nails performed to reduce/remove overall nail length and girth, by manual and electrical means with use of a nail nipper and/or dremel, to more viable healthy nail plate or bed tissue 6-10 (G0127).? * Procedure Codes:?G0127 DEMETRIUS ING DYSTROPHIC NAILS ANY #, Modifiers: GY 60499 TRIM SKIN LESIONS, 2 TO 4, Modifiers: GY * Preventive Medicine:? ??Counseling:?Discussion:?-14: Office or other outpatient visit for the evaluation and management of an established patient, which required a medically appropriate history and/or examination and MODERATE level of DECISION MAKING for: 1 OR MORE CHRONIC PROBLEM(S) THATS WORSENING, 2 STABLE CHRONIC PROBLEMS, A NEWLY DIAGNOSED PROBLEM WITH UNCERTAIN PROGNOSIS, AN ACUTE COMPLICATED INJURY WITH MULTIPLE TREATMENT OPTIONS, OR AN ACUTE PROBLEM WITH ACCOMPANYING SYSTEMIC SYMPTOMS, THAT POSE(S) A MODERATE RISK OF MORBIDITY. THIS CONDITION MAY ALSO INCLUDE RX DRUG MANAGEMENT, OR A DECISON FOR MINOR SURGERY. The visit on the day of the encounter encompassed interpreting the data and educating the patient as to the nature of their condition, treatment options available according to their individual PMH, meds, allergies, and overall health/living conditions, as well as any potential risks or complications that may occur from a failure to adhere to, and participate in, the recommended course of therapy. The discussion included a complete verbal, and/or written explanation of the examination results, any x-rays taken, the proposed diagnosis, and outline of the treatment plan. A schedule for future care needs was also explained. The patient verbalized an understanding of the instructions at this time and agreed to be an active participant in their treatment. If the patient should think of any questions or concerns after the visit, I have encouraged the patient to call the office.?Digital Treatment:?HT- I explained to the patient the possible etiologies of Hammertoes, including genetics/foot type/shoegear/activity level/exercise routine and the risks/benefits of all the different treatment options for their pain including: No treatment at all, Rest, Ice, New/supportive/wider/deeper Shoegear, Digital Padding/Strapping/Taping/Bracing/Gel protective sleeves, Foot/Ankle AFO Bracing, Stretching exercises, Deep Tissue Massage, Arch support/shoe inserts with splay metatarsal padding, and Custom orthoses. I insisted that any digital devices be removed daily and not worn overnight for safety. The patient is to carefully examine the toes daily for any skin irritation while using any splinting or padding device. The advantages and disadvantages of each option were discussed and the patients questions re: shoegear, padding, custom vs prefabricated inserts, activity level, and consistency in home treatment regimens for optimal success were answered to their verbally confirmed satisfaction, HV - I explained to the patient the risks/benefits of all the different treatment options for their pain including: No treatment at all, Rest, Ice, New/supportive/wider/deeper Shoegear, Digital Padding/Strapping/Taping/Bracing/Gel protective sleeves, Foot/Ankle AFO Bracing, Stretching exercises, Deep Tissue Massage, Arch support/shoe inserts with splay metatarsal padding, and Custom orthoses. I insisted that any digital devices be removed daily and not worn overnight for safety. The patient is to carefully examine the toes daily for any skin irritation while using any splinting or padding device. The advantages and disadvantages of each option were discussed and the patients questions re: shoegear, padding, custom vs prefabricated inserts, activity level, and consistency in home treatment regimens for optimal success were answered to their verbally confirmed satisfaction, Rx: Extra Depth Orthopedic Shoes with 3 pair of custom heat-molded inserts.? * Follow Up:?3 Months * Images: * Sign off status: Completed true * Provider:?Julee Dickens DPM Date:?2023 Generated for Wilder ibarra/Cuong/Gabriella on:?01/03/2025 05:23 PM EST History and Physical Notes * HPI (History of Present Illness) Category Sub-Category Detail Notes Category Not es Skin problems Nature: Open sore Location: 1st, , Left (2) 1st right Duration: , several months Course: , improved Treatments: puracol plus wound c are product with [facility] woundcare center At Risk footcare Pt States Last PCP Visit: Date: 4 Foot Pain Location: , B/L Duration: several years Course: worse Aggravated: any pressure Treatments: rest/alter normal da matthew activity Examination Category Sub-Category Detail Notes Category Not [...] s Keratotic lesion(s) located at B/L , Heel(s) ULCER: Dorsal, 1 MTH, LEFT, LOCATION, SIZE, 10mm X 5mm X 3mm, BASE, granular, RIM, hyperkeratotic, UNDERMINING, absent, TRACKING, Full thickness breakdown of skin, DRAINAGE, serosanguineous, mild, NECROTIC TISSUE, loosely-adherent, yellow slough, MALODOR, absent, CALOR, absent, ERYTHEMA, present PAIN ON PALPATION, absent , Dorsal 1st IPj and MPJ resolved Orthopedic FOOT MORPHOLOGY: Pes Planus structure , S augustus-rigid , B/L BUNION: Medially prominent 1 st MPJ, (+) Pain on palpation, inflammation present medially, Lateral tracking 1st MPJ incompletely reducible, B/L.there is evidence of shoe producing skin irritation DIGITAL DEFORMITIES: Digital contracture , PIPJ, 2-5 B/L, incompl-reducible with WB, or to push-up test, no over, nor underlapping , there is evidence of shoe producing skin irritation MUSCLE STRENGTH: 5/5 all groups in a symmetrical fashion , B/L General Examination GENERAL APPEARANCE: Reveals a pleasant, alert, well nourished, well-developed, well hydrated individual, who demonstrates proper attention to hygiene/body habitus, and is in no acute distress, Pt serves as own historian for office visit today ORIENTED: person, place, and t rafael Ophthalmology Referral DIABETES EYE EXAM Diabetic Retinopa thy Screening:: Yes Findings of Diabetic Eye Exam:: no retin opathy Nails NAILS are: elongated,overgrown, and dys trophic, 1-5 B/L
--- OUTSIDE RECORDS SUMMARY | 2025-01-03 17:24 | XMS_ITS ---
Author Organization [facility] Address [address] [place] [address] Care Team Providers Care Criminology Teacher Name Role Phone Yolanda Jack MD Primary Care Provider Unavaila apolinar DickensEnocJulee Unavailable [phone] REASON FOR VISIT B/L Wounds Encounters Encounter Location Date Provider Diagnosis [address] [address] 09/27/2024 Juleejocelyn Dickens Plan Of Treatment Next Appt Details Provider Name:Julee Knight Maninder , 01/10/2025 09:15:00 AM, [address] [place], [address], Progress Notes * Gina MCCULLOUGH MDOB:[birth year] (64 yo F)Acc No.[id number]:09/27/2024 Patient:?Gina MCCULLOUGH :1960???Age:64 Y???Sex:Female Address:[address], [address], [place], [address] * true * Date:? Generated for Printi ng/Faxing/eTransmitting on:?01/03/2025 05:24 PM EST
== END 2025-01-03 15:21 | disposition home or self-care (01) ==
PROVIDERS: PCP Internal Medicine; Visit Provider Internal Medicine
DX: M86.9 Osteomyelitis, unspecified (principal)
CPT/HCPCS: 99213

== ENCOUNTER → 2025-01-03 15:06 | Outpatient (BNVA) | payer MEDICARE, MEDICAID, OTHER, SELFPAY | PROVIDERS: PCP Internal Medicine; Visit Provider Internal Medicine | DX: M86.9 Osteomyelitis, unspecified (principal) | CPT/HCPCS: 99212 ==

== ENCOUNTER 2025-01-18 10:01 | Outpatient (REF) | payer MEDICARE, MEDICAID, OTHER, SELFPAY ==
--- OUTSIDE RECORDS SUMMARY | 2025-01-18 11:46 | XMS_ITS ---
Author Organization [facility] Address [address] [facility] [place] [address] Care Team Providers Care Assurance Specialist Name Role Phone Yolanda Jack MD Primary Care Provider Unavaila ble Black Julee Unavailable [phone] Allergies Allergen (clinical drug ingredient) Drug/Non Drug [...] 6 hrs for 10 day(s) 12/01/2018 Not-Taking Ibuprofen 800 MG 1 tablet with food or milk as needed Orally Three times a day for 30 days 11/11/2018 Not-Taking Keflex 500 MG [...] Wear Daily for as needed 12/13/2020 Not-Taking oxyBUTYnin Not-Takin g Extra Depth Diabetic Shoes with 3 Pair Custom heat-molded multi-density innersoles for 1 year Dx: 07/01/2024 Active Extra-Depth Diabetic Shoes with 3 Pair Custom heat-molded multi-density innersoles . for 1 year . Dx:hammertoes with hx of ulcers for . 04/27/2014 Active vitamin Active Vitamin D [...] Active Encounters Encounter Location Date Provider Diagnosis [facility] [address] [address] 01/10/2025 Julee Dickens Plan Of Treatment Next Appt Details Provider Name:Julee Antonia Dickens , 02/21/2025 03:15:00 PM, [address] [place] [address], [phone], Progress Notes * Gina MCCULLOUGH MDOB:[birth year] (64 yo F)Acc No.[id number]:01/10/2025 Progress Note Patient:?Gina MCCULLOUGH Provider:?Julee Dickens DPM :1960???Age:64 Y???Sex:Female D ate:01/10/2025 Address:[address] [place] [address], [address], [facility] Pcp:Yolanda Jack MD Subjective: * Chief Complaints: * ??? * Medical History:?Chicken pox , Reflux, Osteoporosis, Neuropathy, High blood pressure, Cholesterol, Back, hip, knee pain, Arthritis, Sleep apnea, pre type II diabetes, Carpal tunnel. * Medications:?Taking Spironol actone 25 MG Tablet 1 tablet Orally , [...] a day , Taking vitamin , Taking Extra- Depth Diabetic Shoes with 3 Pair [...] 1 tablet Orally Twice a day * Allergies:?Adhesive: rash, L atex: rash. Objective: * Vitals:? Assessment: Plan: * Treatment: * Images: * The named appointment provid er may or may not be the originator of this progress note, and it is not deemed complete until electronically signed by the appointment provider. Sign off status: Pending * Provider:?Julee Dickens DPM Date:?2024 Generated for Wilder ibarra/Cuong/Soraidaitting on:?01/18/2025 11:46 AM EDT
--- OUTSIDE RECORDS SUMMARY | 2025-01-18 11:46 | XMS_ITS ---
Author Organization [facility] Address [address] [facility] [place] [address] Care Team Providers Care Plastic Finisher Name Role Phone Yolanda Jack MD Primary Care Provider Unavaila apolinar Enoc Dickensmie Unavailable [phone] Allergies Allergen (clinical drug ingredient) Drug/Non Drug [...] Ordered Date Performed Result Body Sit e 97897-VBYM SKIN LESIONS, 2 TO 4 10/11/2024 N/A U3077-FLZPCEPN DYSTROPHIC NAILS ANY # 10/11/2024 N/A Encounters Encounter Location Date Provider Diagnosis [facility] [place] [address] [place] [address] 10/11/2024 Julee Black Type 2 diabetes mellitus with diabetic polyneuropathy E11.42 Assessments Encounter Date Diagnosis (ICD Code) Assessment Notes Treatment Notes Treatment Clinical Notes Section Notes 10/11/2024 Type 2 diabetes mellitus with diabetic polyneuropathy (ICD-10 - E11.42) Plan Of Treatment Pending Test Test Name Order Date 56219-ULHG SKIN LESIONS, 2 TO 4 10/11/20 24 X1374-KUSVOSXT DYSTROPHIC NAILS ANY # Next Appt Details Follow Up: prn, Reason: Provider Name:Julee A Maninder , 02/21/2025 03:15:00 PM, [address] [place] [address], [phone], Procedure Notes * Category Sub-Category Detail Notes Keratoma Treatment Parring or Cutting o f Benign Hyperkeratotic Lesion(s) (-56) 2-4 Lesions - The Benign hyperkeratotic lesions, (4 ) in total, locations as stated and described in exam, were pared, and/or cut utilizing a sterile 15 blade, tissue nippers, and/or power dremel instrumentation - 81657 Nail Reduction Nail Reduction Trimming of dyst rophic nails performed to reduce/remove overall nail length and girth, by manual and electrical means with use of a nail nipper and/or dremel, to more viable healthy nail plate or bed tissue 6-10 (G0127) Progress Notes * Gina MCCULLOUGH MDOB:[birth year] (64 yo F)Acc No.[id number]:10/11/2024 Progress Note Patient:?Gina MCCULLOUGH Provider:?Julee Dickens DPM :1960???Age:64 Y???Sex:Female D ate:10/11/2024 Address:[address] [place] [address], [address], [facility] Pcp:Yolanda Jack MD Subjective: * Chief Complaints: * ???At Risk Footcare * HPI: ???At Risk footcare:?Pt States Last PCP Visit:?Date?04/14/2024 ?B/l dorsal 1st ulcerations- DSD intact pt being seen at [facility] once a week and [facility] is twice a week. Pt seeing at [facility]? Thrusday. * ROS:?General/Constitutional:?Nausea?denies.?Vomiting?denies.?Hunger Thirst?denies.?Loss appetite?denies.?Chills?denies.?Fatigue?denies.?Fever?denies.?Night Sweats?denies.?Unexplained weight [...] Repair w/K-Wire 2nd Left 08/23/2015Colonoscopy 04/03/2018[facility], LIV 2nd R SE: Sag Saw & Kwire 11/18/2018 * Hospitalization/Major Diagno stic Procedure:?[facility] [place] [place] [facility] 3 [...] 5.5 * Examination: ???Ophthalmology Referral: ?DIABETES EYE EXAM?Procedure Performed:?Yes ?Date of Exam Performed?09/09/2024 ?Findings of Diabetic Eye Exam:?no retinopathy?Nails: ?NAILS are:?elongated,overgrown, and dystrophic, 1-5 B/L.?Dermatologic: ?SKIN [...] for office visit today.?ORIENTED:?person, place, and time.?FOOT EXAM:?Lower Extremity Neurological Exam performed:?Yes ?Visual exam of foot performed:?Yes ?Date?10/11/2024 ?Sensory testing performed:?sensations diminished ?Sensory and motor testing performed:?sensations diminished ?Pedal pulse taking performed:?2+??? Assessment: * Assessment: 1.?Type 2 diabetes mellitus with diabetic polyneuropathy - E11.42??? Plan: * Treatment: * Procedures:?Keratoma Treatment:?Parring or Cutting of Benign Hyperkeratotic Lesion(s)?(-56) 2-4 Lesions - The Benign hyperkeratotic lesions, (4 ) in total, locations as stated and described in exam, were pared, and/or cut utilizing a sterile 15 blade, tissue nippers, and/or power dremel instrumentation - 87845.?Nail Reduction:?Nail Reduction?Trimming of dystrophic nails performed to reduce/remove overall nail length and girth, by manual and electrical means with use of a nail nipper and/or dremel, to more viable healthy nail plate or bed tissue 6-10 (G0127).? * Procedure Codes:?G0127 DEMETRIUS ING DYSTROPHIC NAILS ANY #, Modifiers: GY [address]151 TRIM SKIN LESIONS, 2 TO 4, Modifiers: GY * Follow Up:?prn * Images: * Sign off status: Completed true * Provider:?Julee Dickens DPM Date:?2023 Generated for Wilder ibarra/Cuong/eTransmitting on:?01/18/2025 11:45 AM EDT History and Physical Notes * HPI (History of Present Illness) Category Sub-Category Detail Notes Category Not es At Risk footcare Pt States Last PCP Visit: Date: 4 B/l dorsal 1st ulcerations- DSD intact pt being seen at [facility] once a week and [facility] is twice a week. Pt seeing at [facility] Thrusday Examination Category Sub-Category Detail Notes Category [...]
--- OUTSIDE RECORDS SUMMARY | 2025-01-18 11:46 | XMS_ITS ---
Author Organization [facility] Address [address] [place] [address] Care Team Providers Care Decorator Store Name Role Phone Yolanda Jack MD Primary Care Provider Unavaila apolinar DickensEnocJulee Unavailable [phone] REASON FOR VISIT Reschedule Encounters Encounter Location Date Provider Diagnosis [address] [address] 01/05/2025 Julee Dickens Plan Of Treatment Next Appt Details Provider Name:Julee Knight Maninder , 02/21/2025 03:15:00 PM, [address] [place] [address], [address], Progress Notes * Gina MCCULLOUGH MDOB:[birth year] (64 yo F)Acc No.[id number]:01/05/2025 Patient:?Gina MCCULLOUGH :1960???Age:64 Y???Sex:Female Address:[address], [address], [place], [address] * true * Date:? Generated for Printi ng/Faxing/eTransmitting on:?01/18/2025 11:45 AM EDT
[2025-01-18 13:33] LABS: Basophils Percent Auto 0.4 % (0-2); Eosinophils Absolute Auto 0.3 X10*3/uL (0.0-0.4); Eosinophils Percent Auto 4.9 % (0-4); Hematocrit 26.3 % (37.0-47.0); Hemoglobin 8.2 g/dl (12.0-16.0); Imm Gran Abs Auto 0.02 X10*3/uL (0.00-0.03); Imm Gran Pct Auto 0.3 % (0.0-0.4); Lymphocytes Absolute Auto 1.8 X10*3/uL (1.2-4.9); Lymphocytes Percent Auto 27.1 % (20-40); Mean Corpuscular HGB Conc 31.2 g/dl (31.0-35.0); Mean Corpuscular Hemoglobin 27.3 pg (27.0-33.0); Mean Corpuscular Volume 87.7 fL (80.0-98.0); Monocytes Absolute Auto 0.7 X10*3/uL (0.1-1.2); Neutrophils Absolute Auto 3.8 x10*3/uL (2.0-8.3); Neutrophils Percent Auto 56.3 % (45-73); Red Cell Distribution Width 14.7 % (11.0-16.0); White Blood Count 6.8 X10*3/uL (4.8-10.8)
[2025-01-18 14:02] LABS: Estimated Average Glucose 148 mg/dL; Hemoglobin A1c % 6.8 % (<6.0)
[2025-01-18 14:03] LABS: MANUAL DIFF FLAG SCAN; Mean Platelet Volume 11.7 fL (9.4-12.3); Platelet Count 98 X10*3/uL (160-400)
[2025-01-18 14:04] LABS: SLIDE REVIEW VERIFIED
[2025-01-18 14:19] LABS: Alanine Aminotransferase 33 U/L (0-31); Albumin Level 3.9 g/dL (3.5-5.0); Alkaline Phosphatase 75 U/L (39-117); Anion Gap 14 (12-20); Aspartate Amino Transferase 25 U/L (5-31); Bilirubin Total 0.4 mg/dL (0.0-1.0); Blood Urea Nitrogen 30 mg/dL (9-16); Calcium 8.8 mg/dL (8.4-10.2); Carbon Dioxide 26 mmol/L (22-29); Chloride 102 mmol/L (96-108); Estimated Glomerular Filt Rate > 60; Glucose Fasting 88 mg/dL (60-99); Iron 138 mcg/dL (30-160); Percent Iron Saturation 65 % (15-50); Potassium 4.8 mmol/L (3.3-5.1); Sodium 137 mmol/L (135-145); Total Iron Binding Capacity 211 mcg/dL (228-428); Total Protein 6.9 g/dL (6.5-8.0); Unsaturated Iron Binding 73 ug/dL
== END 2025-01-18 10:02 | disposition home or self-care (01) ==
LOC: HO.HMGCLDS 10:01
PROVIDERS: PCP Internal Medicine; Visit Provider Internal Medicine
DX: Z00.00 Encounter for general adult medical examination without abnormal findings (principal); E11.9 Type 2 diabetes mellitus without complications; I10 Essential (primary) hypertension; E66.01 Morbid (severe) obesity due to excess calories; E78.2 Mixed hyperlipidemia
CPT/HCPCS: 36415; 80053; 83036; 83540; 85025

== ENCOUNTER 2025-01-19 13:08 | Outpatient (AMB) | payer MEDICARE, MEDICAID, OTHER, SELFPAY ==
[2025-01-19 13:31] VITALS: PULSE 84; O2SAT 96
--- NOTE | 2025-01-19 13:31 | A.OFFVIS_ITS ---
Vital Signs 3 01/19/25 13:31 Height 5 ft 1 in Pulse 84 Pulse Source Pulse Oximeter Pulse Oximetry (%) 96 Oxygen Delivery Method Room Air Intake Visit Reasons: 2 week follow up osteo toe Allergies Adhesive Bandages Allergy (Unknown, Verified 01/19/25 13:32) rash adhesive tape [TAPE,ADHESIVE] Allergy (Unknown, Verified 01/19/25 13:32) RASH amlodipine Allergy (Unknown, Verified 01/19/25 13:32) edema atenolol Allergy (Unknown, Verified 01/19/25 13:32) Bradycardia bisoprolol [From Zebeta] Allergy (Unknown, Verified 01/19/25 13:32) Diarrhea labetalol Allergy (Unknown, Verified 01/19/25 13:32) n/a latex [LATEX] Allergy (Unknown, Verified 01/19/25 13:32) RASH semaglutide [From Ozempic] Adverse Reaction (Intermediate, Verified 01/19/25 13:32) Diarrhea vicodin Allergy (Unknown, Uncoded 11/23/24 11:53) heart palpitation HPI HPI 2 week follow up osteo toe: Details: She has improvement PFSH Medical History Osteomyelitis Bunion of right foot Hyperglycemia Morbid obesity Foot callus Neuropathy Edema Urinary retention Plantar fasciitis Obesity TONI on CPAP Osteoarthritis Spinal stenosis Hypertension Surgical History History of carpal tunnel surgery H/O foot surgery History of tonsillectomy H/O colonoscopy History of lumbar surgery Family History Father History of heart attack Mother HTN (hypertension) Stroke Brother Stomach cancer Brother History of heart attack HTN (hypertension) Diabetes mellitus Lung cancer Brother Bladder cancer Heart attack Social History Housing: House Alcohol intake: never Patient Tobacco Use Status: Never used Tobacco e-Cigarette/Vaping Use: Never Used Second Hand Smoke Exposure: No service: No Current occupational status: disabled Current occupation: right hand dominant Cognitive needs: No Hearing needs: No Vision needs: Yes Review of Systems Const All systems reviewed & are unremarkable except as noted in HPI and below Physical Exam Vital Signs: Last Vital Signs Pulse 84 01/19/25 13:31 Pulse Ox 96 01/19/25 13:31 Oxygen Delivery Method Room Air 01/19/25 13:31 Const General: cooperative HEENT Head: Yes normal to inspection Face and sinus: Yes normal facial exam Mouth: Normal oral and palatal mucosa present Teeth and gingiva: dentition normal Eyes General: appearance normal, both eyes and all related structures Pupils: Equal, round and reactive pupils present Resp Effort & Inspection: normal respiratory effort Cardio Rate: regular rate Rhythm: regular rhythm GI Palpation (GI): Soft to palpation and nontender General: Yes no CVA tenderness Back/Spine/Pelvis Back: no CVA tenderness Skin General skin exam: no rashes or lesions noted Neuro General: moves all extremities Cranial nerves: Yes Equal, round and reactive pupils present Extrem Other: General: Yes normal to inspection Psych Appearance: grossly normal Assessment & Plan Assessment & Plan (1) Osteomyelitis: Comment: She has enterococcus OM,better looking foot Code(s): M86.9 - Osteomyelitis, unspecified Category: Medical Plan: Finish antibiotics. Coding Level of Care Code Est Pt Level 3 (85210) Diagnoses Osteomyelitis M86.9
--- OUTSIDE RECORDS SUMMARY | 2025-01-19 15:22 | XMS_ITS ---
Author Organization [facility] Address [address] [place] [address] Care Team Providers Care Legal Secretary Name Role Phone Yolanda Jack MD Primary Care Provider Unavaila apolinar Enoc Dickensmie Unavailable [phone] Allergies Allergen (clinical drug ingredient) Drug/Non Drug [...] Ordered Date Performed Result Body Sit e 37942-HQJD SKIN LESIONS, 2 TO 4 10/11/2024 N/A [id number]-[id number] DYSTROPHIC NAILS ANY # 10/11/2024 N/A Encounters Encounter Location Date Provider Diagnosis [facility] [place] [address] [place] [address] 10/11/2024 Julee Black Type 2 diabetes mellitus with diabetic polyneuropathy E11.42 Assessments Encounter Date Diagnosis (ICD Code) Assessment Notes Treatment Notes Treatment Clinical Notes Section Notes 10/11/2024 Type 2 diabetes mellitus with diabetic polyneuropathy (ICD-10 - E11.42) Plan Of Treatment Pending Test Test Name Order Date 97924-GYCT SKIN LESIONS, 2 TO 4 10/11/20 24 [id number] DYSTROPHIC NAILS ANY # Next Appt Details Follow Up: prn, Reason: Provider Name:Julee A Maninder , 02/21/2025 03:15:00 PM, [address] [place] [address], [phone], Procedure Notes * Category Sub-Category Detail Notes Keratoma Treatment Parring or Cutting o f Benign Hyperkeratotic Lesion(s) (-56) 2-4 Lesions - The Benign hyperkeratotic lesions, (4 ) in total, locations as stated and described in exam, were pared, and/or cut utilizing a sterile 15 blade, tissue nippers, and/or power dremel instrumentation - 75614 Nail Reduction Nail Reduction Trimming of dyst rophic nails performed to reduce/remove overall nail length and girth, by manual and electrical means with use of a nail nipper and/or dremel, to more viable healthy nail plate or bed tissue 6-10 (G0127) Progress Notes * Gina MCCULLOUGH MDOB:[birth year] (64 yo F)Acc No.[id number]:10/11/2024 Progress Note Patient:?Gina MCCULLOUGH Provider:?Julee Dickens DPM :1960???Age:64 Y???Sex:Female D ate:10/11/2024 Address:[address] [place] [address], [address], [facility] Pcp:Yolanda Jack MD Subjective: * Chief Complaints: * ???At Risk Footcare * HPI: ???At Risk footcare:?Pt States Last PCP Visit:?Date?04/14/2024 ?B/l dorsal 1st ulcerations- DSD intact pt being seen at [facility] once a week and [facility] is twice a week. Pt seeing at [facility]? Thrusday. * ROS:?General/Constitutional:?Nausea?denies.?Vomiting?denies.?Hunger Thirst?denies.?Loss appetite?denies.?Chills?denies.?Fatigue?denies.?Fever?denies.?Night Sweats?denies.?Unexplained weight [...] * Hospitalization/Major Diagno stic Procedure:?[facility] [...] tissue nippers, and/or power dremel instrumentation - 73023.?Nail Reduction:?Nail Reduction?Trimming of dystrophic nails performed to reduce/remove overall nail length and girth, by manual and electrical means with use of a nail nipper and/or dremel, to more viable healthy nail plate or bed tissue 6-10 (G0127).? * Procedure Codes:?G0127 DEMETRIUS ING DYSTROPHIC NAILS ANY #, Modifiers: [place] [address] TRIM SKIN LESIONS, 2 TO 4, Modifiers: GY * Follow Up:?prn * Images: * Sign off status: Completed true * Provider:?Julee Dickens DPM Date:?2023 Generated for Wilder ibarra/Cuong/eTransmitting on:?01/19/2025 03:22 PM EDT History and Physical Notes * HPI (History of Present Illness) Category Sub-Category Detail Notes Category Not es At Risk footcare Pt States Last PCP Visit: Date: 4 B/l dorsal 1st ulcerations- DSD intact pt being seen at [facility] once a week and [facility] is twice a week. Pt seeing at [facility] Thrusday Examination Category Sub-Category Detail Notes Category [...]
--- OUTSIDE RECORDS SUMMARY | 2025-01-19 15:22 | XMS_ITS ---
Author [facility] Address [address] [facility] [place] [address] Care Team Providers Care Cytotechnologist Name Role Phone Yolanda Jack MD Primary Care Provider Unavaila ble Black Julee Unavailable [phone] Allergies Allergen (clinical drug ingredient) Drug/Non Drug [...] Active Encounters Encounter Location Date Provider Diagnosis [facility] [address] [address] 01/10/2025 Julee Dickens Plan Of Treatment Next Appt Details Provider Name:Julee Antonia Dickens , 02/21/2025 03:15:00 PM, [address] [place] [address], [phone], Progress Notes * Gina MCCULLOUGH MDOB:[birth year] (64 yo F)Acc No.[id number]:01/10/2025 Progress Note Patient:?Gina MCCULLOUGH Provider:?Julee Dickens DPM :1960???Age:64 Y???Sex:Female D ate:01/10/2025 Address:[address] [place] [address], [address], [facility] Pcp:Yolanda Jack MD Subjective: * Chief Complaints: [...] Provider:?Julee Dickens DPM Date:?2024 Generated for Wilder ibarra/Cuong/Gabriella on:?01/19/2025 03:22 PM EDT
--- OUTSIDE RECORDS SUMMARY | 2025-01-19 15:22 | XMS_ITS ---
Author Organization [facility] Address [address] [place] [address] Care Team Providers Care Architectural Draftsperson Name Role Phone Yolanda Jack MD Primary Care Provider Unavaila apolinar DickensEnocJulee Unavailable [phone] REASON FOR VISIT Reschedule Encounters Encounter Location Date Provider Diagnosis [address] [address] 01/05/2025 Julee Dickens Plan Of Treatment Next Appt Details Provider Name:Julee Knight Maninder , 02/21/2025 03:15:00 PM, [address] [place] [address], [phone], Progress Notes * Gina MCCULLOUGH MDOB:[birth year] (64 yo F)Acc No.[id number]:01/05/2025 Patient:?Gina MCCULLOUGH :1960???Age:64 Y???Sex:Female Address:[address], [address], [place], [address] * true * Date:? Generated for Printi ng/Faxing/eTransmitting on:?01/19/2025 03:22 PM EDT
== END 2025-01-19 14:44 | disposition home or self-care (01) ==
LOC: HO.HID 13:08
PROVIDERS: PCP Internal Medicine; Visit Provider Internal Medicine
DX: M86.9 Osteomyelitis, unspecified (principal)
CPT/HCPCS: 99213

== ENCOUNTER → 2025-01-19 13:08 | Outpatient (BNVA) | payer MEDICARE, MEDICAID, OTHER, SELFPAY | PROVIDERS: PCP Internal Medicine; Visit Provider Internal Medicine | DX: M86.9 Osteomyelitis, unspecified (principal) | CPT/HCPCS: 99212 ==

== ENCOUNTER 2025-01-31 09:22 | Outpatient (AMB) | payer MEDICARE, OTHER, MEDICAID, SELFPAY ==
--- NOTE | 2025-01-31 09:28 | MHC.PC.OV ---
Vital Signs 01/31/25 09:41 BMI Reason not done Patient refused/unable BP 122/70 Blood Pressure Location Lt brachial Position Sitting Respiration 18 Pulse 68 Pulse Source Pulse Oximeter Temp 98.2 F Temp Source Oral Pulse Oximetry (%) 98 Oxygen Delivery Method Room Air Intake Visit Reasons: 3m follow up Intake Note: Pt is here today for a 3 months follow up visit. Allergies Adhesive Bandages Allergy (Unknown, Verified 01/31/25 09:38) rash adhesive tape [TAPE,ADHESIVE] Allergy (Unknown, Verified 01/31/25 09:38) RASH amlodipine Allergy (Unknown, Verified 01/31/25 09:38) edema atenolol Allergy (Unknown, Verified 01/31/25 09:38) Bradycardia bisoprolol [From Zebeta] Allergy (Unknown, Verified 01/31/25 09:38) Diarrhea labetalol Allergy (Unknown, Verified 01/31/25 09:38) n/a latex [LATEX] Allergy (Unknown, Verified 01/31/25 09:38) RASH metformin Adverse Reaction (Intermediate, Verified 01/31/25 10:25) Diarrhea semaglutide [From Ozempic] Adverse Reaction (Intermediate, Verified 01/31/25 09:38) Diarrhea vicodin Allergy (Unknown, Uncoded 01/31/25 09:38) heart palpitation actos Adverse Reaction (Intermediate, Uncoded 01/31/25 10:37) Abdominal Pain Medication List - Last Reconciled 01/31/25 by Yolanda Jack MD acetaminophen ER 1,300 mg PO Q12H aspirin 81 mg PO DAILY carvedilol 6.25 mg PO BID catheter (Bardex All-Silicone Duncan Catheter) As directed celecoxib 200 mg PO BID cholecalciferol (vitamin D3) 25 mcg PO DAILY furosemide 40 mg PO DAILY gabapentin 900 mg (3 x 300 mg) PO BEDTIME hydralazine 50 mg PO BID irbesartan 300 mg PO DAILY Lactobacillus acidophilus (Acidophilus capsule) 1,000 mmu cells PO DAILY loperamide (Imodium A-D) 2 mg PO Q4H PRN magnesium oxide 500 mg PO DAILY multivitamin 1 tab PO DAILY nystatin (Nystop) 1 appl topical BID omega 1-rkp-ngs-fish oil 1,000 (120-180) mg (Fish Oil) 1 cap PO DAILY omeprazole 20 mg PO DAILY pregabalin 150 mg PO BID rosuvastatin 10 mg PO BEDTIME spironolactone 25 mg PO DAILY terazosin 20 mg (2 x 10 mg) PO DAILY Tobacco use date assessed: 01/31/25 Dental Screening Dental Screen Date: 01/31/25 Did you have a dental visit in the last 12 months?: Yes Did you have a dental problem in the last 6 months where you did not have access to dental care?: No Was dental information given to patient?: Patient has dentist HPI 3m follow up HPI Details Patient presents for the follow-up of hypertension hyperlipidemia hyperglycemia. Patient complains of having recurrent ulcers on her feet and is established with Wound Care. She has been treated for osteomyelitis with linezolid for 4 weeks completed 2 weeks ago. Patient is established with Infectious Disease [facility] Medical History Osteomyelitis Bunion of right foot Hyperglycemia Morbid obesity Foot callus Neuropathy Edema Urinary retention Plantar fasciitis Obesity TONI on CPAP Osteoarthritis Spinal stenosis Hypertension Surgical History History of carpal tunnel surgery H/O foot surgery History of tonsillectomy H/O colonoscopy History of lumbar surgery Family History Father History of heart attack Mother HTN (hypertension) Stroke Brother Stomach cancer Brother History of heart attack HTN (hypertension) Diabetes mellitus Lung cancer Brother Bladder cancer Heart attack Social History Housing: House Alcohol intake: never Patient Tobacco Use Status: Never used Tobacco e-Cigarette/Vaping Use: Never Used Second Hand Smoke Exposure: No service: No Current occupational status: disabled Current occupation: right hand dominant Cognitive needs: No Hearing needs: No Vision needs: Yes Questionnaire PHQ-9 Over the last 2 weeks, how often have you been bothered by any of the following problems? 1. Little interest or pleasure in doing things: not at all 2. Feeling down, depressed, or hopeless: not at all 3. Trouble falling or staying asleep, or sleeping too much: not at all 4. Feeling tired or having little energy: not at all 5. Poor appetite or overeating: not at all 6. Feeling bad about yourself - or that you are a failure or have let yourself or your family down: not at all 7. Trouble concentrating on things, such as reading the newspaper or watching television: not at all 8. Moving or speaking so slowly that other people could have noticed. Or the opposite - being so fidgety or restless that you have been moving around a lot more than usual: not at all 9. Thoughts that you would be better off or of hurting yourself in some way: not at all Total score: 0 Depression Screening Interpretation: Negative Depression Screening Done: Yes 92231 - PHQ-9 Billing: Yes Source: Developed by Drs. Renan Amor, Yoselin Haines, Arnulfo Manzanares and colleagues, with an educational delia from [email or web address]. Thrive Questionnaire Date Thrive assessed: 01/31/25 I am a: Patient What is your living situation today?: I have a steady place to live Within the past 12 months, did the food you bought not last and you didn't have the money to get more?: Never true Within the past 12 months, did you worry whether your food would run out before you got money to buy more?: Never true Do you have trouble paying for medicines?: No Do you have trouble getting transportation to medical appointments?: No Do you have trouble paying your heating and electricity bill?: No Do you have trouble taking care of your child, family member or friend?: No Do you have trouble with day-to-day activities such as bathing, preparing meals, shopping, managing finances, etc.?: No Are you currently unemployed and looking for a job?: No Are you interested in more education?: No Please select the resources that you would like help with: None Currently or been in a relationship where the following occur: No concerns reported THRIVE Score: 0 AUDIT C Alcohol Use Questionnaire (AUDIT-C) 1. How often do you have a drink containing alcohol?: Never 3. How often do you have six or more drinks on one occasion?: Never Total Score: 0 GIANNA-7 AMB Questionnaire GIANNA-7 Date GIANNA - 7 assessed: 01/31/25 Feeling nervous, anxious, or on edge: 0 = Not at all Not being able to stop or control worryin = Not at all Worrying too much about different things: 0 = Not at all Trouble relaxin = Not at all Being so restless that it is hard to sit still: 0 = Not at all Becoming easily annoyed or irritable: 0 = Not at all Feeling afraid as if something awful might happen: 0 = Not at all Total GIANNA-7 score (0-4 normal; 5-9 mild; 10-14 moderate; 15-21 severe): 0 Source: Developed by Drs. Renan Amor, Yoselin Haines, Arnulfo Manzanares and colleagues, with an educational delia from [email or web address]. GIANNA-7 Assessment Billing GIANNA-7 Assessment Tool: GIANNA-7 Assessment 82346 Review of Systems Const All systems reviewed & are unremarkable except as noted in HPI and below Eyes Reports no additional complaints ENT Reports no additional complaints Card Reports no additional complaints Resp Reports no additional complaints GI Reports no additional complaints Reports no additional complaints Physical exam (Primary Care) Vital Signs: Last Vital Signs Temp 98.2 F 01/31/25 09:41 Pulse 68 01/31/25 09:41 Resp 18 01/31/25 09:41 BP 122/70 01/31/25 09:41 Pulse Ox 98 01/31/25 09:41 Oxygen Delivery Method Room Air 01/31/25 09:41 Tobacco/Smoking Status: Tobacco use Status Tobacco use date assessed 01/31/25 01/31/25 09:48 Patient Tobacco Use Status Never used Tobacco 01/31/25 09:48 e-Cigarette/Vaping Use Never Used 01/31/25 09:28 PHQ-9: PHQ-9 Score PHQ-9: Total score 0 01/31/25 09:48 Depression Screening Interpretation: Negative Thrive Assessment: Date of Thrive Assessment Date Thrive assessed 01/31/25 01/31/25 09:48 Currently or been in a relationship where the following occur: No concerns reported Const General: no acute distress HENMT Head: Yes normal to inspection Throat: Yes posterior oropharynx normal Resp Effort & Inspection: normal respiratory effort Auscultation: clear to auscultation bilaterally Cardio Rhythm: regular rhythm Heart sounds: S1 normal heart sound present and S2 normal heart sound present GI Inspection: Yes normal to inspection Palpation (GI): Soft to palpation Percussion: Yes normal to percussion Auscultation: normal bowel sounds Coding Level of Care Code Est Pt Level 4 (22573) Diagnoses Anemia D64.9 Hypertension I10 DM type 2 (diabetes mellitus, type 2) E11.9 Additional Codes GIANNA-7 Assessment Billing - GIANNA-7 Assessment Tool: GIANNA-7 Assessment 43414 ([id number]) PHQ-9 - 25655 - PHQ-9 Billing: Yes ([id number]) Assessment & Plan Assessment & Plan (1) Anemia: Code(s): D64.9 - Anemia, unspecified Category: Medical Plan: Pancytopenia check iron level B12. Possible side effects from linezolid, will monitor (2) Hypertension: Code(s): I10 - Essential (primary) hypertension Category: Medical Plan: Continue current medications (3) DM type 2 (diabetes mellitus, type 2): Comment: diet controlled, intolerant to Ozempic (diarrhea) , A1C 5.4 10/02 Code(s): E11.9 - Type 2 diabetes mellitus without complications Category: Medical Plan: A1c is 6.8, ADA diet increase physical activity weight loss discussed with the patient. She is intolerant to metformin, Actos and Ozempic developed diarrhea. Patient will try Mounjaro 2.5 mg weekly and will follow-up in 3 months with a fasting labs before Orders: Orders Complete Blood Count Auto Diff Today D64.9 - Anemia, unspecified Immunofixation Pnl, Serum Today D64.9 - Anemia, unspecified Hemoglobin A1c 3 Months D64.9 - Anemia, unspecified, E11.9 - Type 2 diabetes mellitus without complications, E66.01 - Morbid (severe) obesity due to excess calories, I10 - Essential (primary) hypertension Complete Blood Count Auto Diff 3 Months D64.9 - Anemia, unspecified, E11.9 - Type 2 diabetes mellitus without complications, E66.01 - Morbid (severe) obesity due to excess calories, I10 - Essential (primary) hypertension Vitamin B12 and Folate Today D64.9 - Anemia, unspecified Immunoglobulins,IgG IgA IgM Today D64.9 - Anemia, unspecified Reticulocyte Count Today D64.9 - Anemia, unspecified Comprehensive Francis. Panel Fast 3 Months D64.9 - Anemia, unspecified, E11.9 - Type 2 diabetes mellitus without complications, E66.01 - Morbid (severe) obesity due to excess calories, I10 - Essential (primary) hypertension Lipid Panel 3 Months D64.9 - Anemia, unspecified, E11.9 - Type 2 diabetes mellitus without complications, E66.01 - Morbid (severe) obesity due to excess calories, I10 - Essential (primary) hypertension Microalbumin, Random (w Creat) 3 Months D64.9 - Anemia, unspecified, E11.9 - Type 2 diabetes mellitus without complications, E66.01 - Morbid (severe) obesity due to excess calories, I10 - Essential (primary) hypertension Medications: New Mounjaro (tirzepatide) 2.5 mg (0.5 mL) subcut QWEEK 6 mL 2RF NS
[2025-01-31 09:41] VITALS: BP 122/70; PULSE 68; RESP 18; TEMP 36.8; O2SAT 98
== END 2025-01-31 10:59 | disposition home or self-care (01) ==
LOC: HO.HMCC 09:23
PROVIDERS: PCP Internal Medicine; Visit Provider Internal Medicine
DX: D64.9 Anemia, unspecified (principal); I10 Essential (primary) hypertension; E11.9 Type 2 diabetes mellitus without complications

== ENCOUNTER 2025-01-31 09:22 | Outpatient (REF) | payer MEDICARE, OTHER, MEDICAID, SELFPAY ==
[2025-01-31 13:29] LABS: MANUAL DIFF FLAG NO
[2025-01-31 13:40] LABS: Basophils Percent Auto 0.3 % (0-2); Eosinophils Absolute Auto 0.5 X10*3/uL (0.0-0.4); Eosinophils Percent Auto 5.7 % (0-4); Hematocrit 28.1 % (37.0-47.0); Hemoglobin 8.4 g/dl (12.0-16.0); Imm Gran Abs Auto 0.04 X10*3/uL (0.00-0.03); Imm Gran Pct Auto 0.5 % (0.0-0.4); Immature Retic Fraction 28.5 % (3.0-15.9); Lymphocytes Absolute Auto 1.9 X10*3/uL (1.2-4.9); Lymphocytes Percent Auto 22.2 % (20-40); Mean Corpuscular HGB Conc 29.9 g/dl (31.0-35.0); Mean Corpuscular Hemoglobin 26.8 pg (27.0-33.0); Mean Corpuscular Volume 89.5 fL (80.0-98.0); Mean Platelet Volume 11.4 fL (9.4-12.3); Monocytes Absolute Auto 0.9 X10*3/uL (0.1-1.2); Monocytes Percent Auto 10.3 % (2-11); Neutrophils Absolute Auto 5.3 x10*3/uL (2.0-8.3); Platelet Count 449 X10*3/uL (160-400); Red Blood Count 3.14 X10*6/uL (4.20-5.50); Red Cell Distribution Width 17.4 % (11.0-16.0); Retic HGB Equivalent 25.9 pg (30.0-35.0); Reticulocyte Percent 4.9 % (0.5-1.8); Reticulocytes Absolute 0.155 X10*6/uL (0.026-0.095); White Blood Count 8.6 X10*3/uL (4.8-10.8)
[2025-01-31 14:26] LABS: Folate 14.4 ng/mL (> or = 4.0); Vitamin B12 387 pg/mL (200-900)
[2025-02-03 09:34] LABS: IgA 233 mg/dL (70-320); IgG 1097 mg/dL (600-1540); IgM 71 mg/dL (50-300)
== END 2025-01-31 09:23 | disposition home or self-care (01) ==
LOC: HO.HMGCLDS 09:22
PROVIDERS: PCP Internal Medicine; Visit Provider Internal Medicine
DX: D64.9 Anemia, unspecified (principal); I10 Essential (primary) hypertension; E11.9 Type 2 diabetes mellitus without complications
CPT/HCPCS: 36415; 82607; 82746; 82784; 85025; 85045; 86334; 96127; 99212

== ENCOUNTER 2025-03-08 11:10 | Outpatient (AMB) | payer MEDICARE, OTHER, SELFPAY ==
--- NOTE | 2025-03-08 11:34 | A.OFFVIS_ITS ---
Vital Signs 3 03/08/25 11:39 BP 100/60 Blood Pressure Location Rt brachial Pulse 65 Pulse Source Pulse Oximeter Pulse Oximetry (%) 98 Oxygen Delivery Method Room Air Intake Visit Reasons: 1 year F/U Intake Note: Patient presents follow up TONI. Logistics Research Engineer Required: No Accompanied by: Self / Same As Patient Allergies Adhesive Bandages Allergy (Unknown, Verified 01/31/25 09:38) rash adhesive tape [TAPE,ADHESIVE] Allergy (Unknown, Verified 01/31/25 09:38) RASH amlodipine Allergy (Unknown, Verified 01/31/25 09:38) edema atenolol Allergy (Unknown, Verified 01/31/25 09:38) Bradycardia bisoprolol [From Zebeta] Allergy (Unknown, Verified 01/31/25 09:38) Diarrhea labetalol Allergy (Unknown, Verified 01/31/25 09:38) n/a latex [LATEX] Allergy (Unknown, Verified 01/31/25 09:38) RASH metformin Adverse Reaction (Intermediate, Verified 01/31/25 10:25) Diarrhea semaglutide [From Ozempic] Adverse Reaction (Intermediate, Verified 01/31/25 09:38) Diarrhea vicodin Allergy (Unknown, Uncoded 01/31/25 09:38) heart palpitation actos Adverse Reaction (Intermediate, Uncoded 01/31/25 10:37) Abdominal Pain HPI Comments Details: 64 y/o female patient with TONI on BiPAP presents for follow up visit. Patient reports the following interval history: Patient has recently started Mounjaro due to elevated hemoglobin A1c and to promote weight loss. Notes previously tried Ozempic, however this was not tolerated due to loose stools. Per patient, request for Zepbound tx was denied by her insurance. Pt reports she is also currently being tx'd for bilateral foot wounds- currently on a right foot wound vac. Followed closely by [facility], wound clinic, and ID. She has had recent vascular evaluation. She has an appt w/ Dr Pierre to discuss possible surgical skin graft. She also has an indweling F/C d/t neurogenic bladder. She has chronic lumbar stenosis with BLE numbness, limited ambulation. Generally she sleeps well with her BiPAP. Pt reports she occasionally may fall asleep without her BiPAP mask on, as she sleeps in a recliner d/t her lumbar stenosis and foot wounds. Her home care company [employer]. She uses a full face mask. She is cleaning and changing her PAP supplies routinely. She is using distilled water in her PAP water reservoir. 01/24/2022, HST was significant for a severe degree of sleep apnea w/ AHI 80 per hour and O2 ramiro 80% (SpO2 under 88% times 15 minutes of study time), and average SpO2 92% BiPAP compliance report reviewed: 02/06/2025 - 03/07/2025 Respiratory company: [employer] Serial number: [id number] Overall usage 100% Usage greater than 4 hours 73% Average usage on days used 4 hours and 14 minutes Setting: IPAP 20 cm H2O EPAP 17 cm H2O, easy breathe on Average leaks 16 L/min Residual AHI 0.1 per hour PENDING SALE TO [facility] Medical History (Updated 03/08/25 @ 12:49 by KARISHMA Wen) TONI (obstructive sleep apnea) Osteomyelitis Bunion of right foot Hyperglycemia Morbid obesity Foot callus Neuropathy Edema Urinary retention Plantar fasciitis Obesity TONI on CPAP Osteoarthritis Spinal stenosis Hypertension Surgical History History of carpal tunnel surgery H/O foot surgery History of tonsillectomy H/O colonoscopy History of lumbar surgery Family History Father History of heart attack Mother HTN (hypertension) Stroke Brother Stomach cancer Brother History of heart attack HTN (hypertension) Diabetes mellitus Lung cancer Brother Bladder cancer Heart attack Social History Housing: House Alcohol intake: never Patient Tobacco Use Status: Never used Tobacco e-Cigarette/Vaping Use: Never Used Second Hand Smoke Exposure: No service: No Current occupational status: disabled Current occupation: right hand dominant Cognitive needs: No Hearing needs: No Vision needs: Yes Physical Exam Vital Signs: Last Vital Signs Pulse 65 03/08/25 11:39 BP 100/60 03/08/25 11:39 Pulse Ox 98 03/08/25 11:39 Oxygen Delivery Method Room Air 03/08/25 11:39 Const General: no acute distress Orientation/consciousness: patient oriented x3 Resp Effort & Inspection: normal respiratory effort and able to speak in complete sentences Neuro Other: Sitting upright in wheelchair. Right foot wound VAC intact. General: patient oriented x3 Psych Mental Status: mental status grossly normal Speech and movement: Clear speech present Attitude: cooperative Results Reviewed Results Reviewed: Assessment & Plan Assessment & Plan (1) Severe obstructive sleep apnea: Comment: On BiPAP therapy Code(s): G47.33 - Obstructive sleep apnea (adult) (pediatric) Category: Medical (2) Obesity, morbid, BMI 50 or higher: Code(s): E66.01 - Morbid (severe) obesity due to excess calories Category: Medical Plan For TONI: Continue BiPAP IPAP 20 cm H2O EPAP 17 cm H2O nightly > 4 hours, as pt continues to have good clinical effect from use. * Clean CPAP machine and supplies routinely. * Change CPAP supplies routinely. * Use distilled water in CPAP water reservoir. Concur with GLP-1 antagonist therapy, however if Mounjaro is ineffective or becomes poorly tolerated, would suggest revisiting trial of Zepbound therapy as patient does have severe sleep apnea as well as obesity with BMI greater than 50. Pt to contact us or respiratory company with any questions or concerns. Pt to follow-up in 12 months or sooner prn. Coding Level of Care Code Est Pt Level 3 (53934) Diagnoses Severe obstructive sleep apnea G47.33 Obesity, morbid, BMI 50 or higher E66.01
[2025-03-08 11:39] VITALS: BP 100/60; PULSE 65; O2SAT 98
--- OUTSIDE RECORDS SUMMARY | 2025-03-08 13:07 | XMS_ITS ---
Author [facility] Address [address] [place] [address] Care Team Providers Care Academic Counselor Name Role Phone Yolanda Jack MD Primary Care Provider Unavaila ble Black Julee Unavailable [phone] Allergies Allergen (clinical drug ingredient) Drug/Non Drug [...] Active Encounters Encounter Location Date Provider Diagnosis [facility] [address] [address] 01/10/2025 Julee Dickens Plan Of Treatment Next Appt Details Provider Name:Julee Antonia Dickens , 05/30/2025 01:00:00 PM, [address] [place] [address], [phone], Progress Notes * Gina MCCULLOUGH MDOB:[birth year] (64 yo F)Acc No.[id number]:01/10/2025 Progress Note Patient:?Gina MCCULLOUGH Provider:?Julee Dickens DPM :1960???Age:64 Y???Sex:Female D ate:01/10/2025 Address:[address] [place] [address], [address], [facility] Pcp:Yolanda Jack MD Subjective: * Chief Complaints: [...] Dickens DPM Date:?2024 Generated for Wilder ibarra/Cuong/Gabriella on:?03/08/2025 01:07 PM EDT
--- OUTSIDE RECORDS SUMMARY | 2025-03-08 13:07 | XMS_ITS ---
Author Organization [facility] Address [address] [place] [address] Care Team Providers Care Account Assistant Name Role Phone Yolanda Jack MD Primary Care Provider Unavaila apolinar Maninder Julee Unavailable [phone] Encounters Encounter Location Date Provider Diagnosis [address] [address] 02/21/2025 Julee Dickens Plan Of Treatment Next Appt Details Provider Name:Julee Dickens , 05/30/2025 01:00:00 PM, [address] [place], [address], Progress Notes * Gina MCCULLOUGH MDOB:[birth year] (64 yo F)Acc No.[id number]:02/21/2025 Progress Note Patient:?Gina MCCULLOUGH Provider:?Julee Dickens DPM :1960???Age:64 Y???Sex:Female D ate:02/21/2025 Address:[address], [address], [id number] Pcp:Yolanda Jack MD Subjective: * Chief Complaints: * ??? * Medical History:? Objective: * Vitals:? Assessment: Plan: * Treatment: * Images: * The named appointment provid er may or may not be the originator of this progress note, and it is not deemed complete until electronically signed by the appointment provider. Sign off status: Pending * Provider:Gary Dickens DPM Date:?2024 Generated for Wilder ibarra/Cuong/Gabriella on:?03/08/2025 01:07 PM EDT
--- OUTSIDE RECORDS SUMMARY | 2025-03-08 13:08 | XMS_ITS ---
Author Organization [facility] Address [address] [place] [address] Care Team Providers Care Veterinary Practitioner Name Role Phone Yolanda Jack MD Primary Care Provider Unavaila apolinar Dickens Julee Unavailable [phone] REASON FOR VISIT r/s 02/21 Encounters Encounter Location Date Provider Diagnosis [address] [address] 02/17/2025 Julee Dickens Plan Of Treatment Next Appt Details Provider Name:Julee Knight Maninder , 05/30/2025 01:00:00 PM, [address] [place] [address], [address], Progress Notes * Gina MCCULLOUGH MDOB:[birth year] (64 yo F)Acc No.[id number]:02/17/2025 Patient:?Gina MCCULLOUGH :1960???Age:64 Y???Sex:Female Address:[address], [place], [address] * true * Date:? Generated for Printi ng/Faxing/eTransmitting on:?03/08/2025 01:07 PM EDT
--- OUTSIDE RECORDS SUMMARY | 2025-03-08 13:08 | XMS_ITS | Patient Health Record ---
Author Organization [facility] Address [address] [place] [address] Care Team Providers Care Toucher Up Name Role Phone Yolanda Jack MD Primary Care Provider Unavaila ble Black, Julee Unavailable [phone] Allergies Allergen (clinical drug ingredient) Drug/Non Drug Allergy documented on EMR Reaction Allergy Type Onset Date Status Adhesive rash Allergy Active Latex Latex rash Allergy Active Results Component Value Reference Range Notes HEMOGLOBIN A1C (GLYCOHEMOGLO BIN) Reviewed date:11/13/2024 03:09:15 PM Interpretation: Performing Lab: Notes/Report: HEMOGLOBIN A1C (HH) 5.5 HEMOGLOBIN A1C (GLYCOHEMOGLO BIN) Reviewed date:11/13/2024 03:10:33 PM Interpretation: Performing Lab: Notes/Report: HEMOGLOBIN A1C % (HH) 5.5 Reason For Referral No Information Medications Medication SIG (Take, Route, Frequency, Duration) Notes Start Date End Date Status Acetaminophen Extra Strength 500 MG 2 tablets as needed Orally every 6 hrs for 14 days 11/11/2018 Active Lyrica 150 MG Orally Twice a day Active Bactrim DS 800-160 MG 1 tablet Orally Twice a day for 10 day(s) 11/27/2018 Not-Taking Spironolactone 25 MG 1 tablet Orally Active Keflex 500 MG 1 capsule Orally every 12 hrs for 10 day(s) 11/20/2018 Not-Taking Ampicillin 500 MG 1 capsule 1 hour before or 2 hours after a meal Orally every 6 hrs for 10 day(s) 12/01/2018 Not-Taking oxyBUTYnin Not-Takin g Extra Depth Diabetic Shoes with 3 Pair Custom heat-molded multi-density innersoles for 1 year Dx: 07/01/2024 Active Extra-Depth Diabetic Shoes with 3 Pair Custom heat-molded multi-density innersoles . for 1 year . Dx:edilbertoertokatharina with hx of ulcers for . 04/27/2014 Active vitamin Active Vitamin D 1000 UNIT 1 tablet Orally Once a day Active Tylenol Arthritis Pain 650 mg 1 tablet twice daily Active Terazosin HCl 10 MG Orally 2 po QD Active PriLOSEC Active Irbesartan 300 MG 1 tablet Orally Once a day Active hydrALAZINE HCl 50 MG 1 tablet with food Orally Twice Daily 3x daily Active Iodosorb 0.9 % as directed Externally as needed PRN Not-Taking Potassium Chloride 20 MEQ Orally Once a day Not-Taking Gabapentin 300 MG 3 capsules Orally Once a day Active Ibuprofen 800 MG 1 tablet with food or milk as needed Orally Three times a day for 30 days 11/11/2018 Not-Taking Fish Oil Active Keflex 500 MG 1 capsule Orally every 12 hrs for 15 days 12/24/2018 Not-Taking Furosemide 40mg Active Lasix 40 MG Orally BID Not-Gustavo ing Rosuvastatin Calcium Active Atenolol 50 MG 1 tablet Orally twice daily Not-Taking Carvedilol Active rOPINIRole HCl 2 MG 1 tablet Orally Once a day Not-Taking CeleBREX 200 MG 1 capsule with food Orally Twice a day Active Crestor Not-Taking Aspir-Low Active metFORMIN HCl 500 MG 1 tablet with a meal Orally Once a day for 30 day(s) Not-Taking Acidophilus Orally Active Ozempic .5 inject 1 a month Not-Taking Orthopedic Extra Depth Shoes With Custom Heat Molded Multidensity Innersoles as directed Wear Daily for as needed 12/13/2020 Not-Taking Immunizations Vaccine Route Administration Date Status Comme nts COVID-19 Moderna Vaccine Unknown 09/24/2021 Administered First Dose: 12/31/2020 Second Dose: 01/29/2021 Influenza Unknown 08/10/2022 Administered Influenza Unknown 09/10/2023 Administered Social History Tobacco Use: Social History Observation Description Date Details (start date - stop date) Never Smoker NA - NA Tobacco Use/Smoking Question Answer Notes Are you a: nonsmoker Additional Findings: Tobacco Non-User Current no n-smoker Alcohol Screen Question Answer Notes Did you have a drink containing alcohol in the p ast year? No Points 0 Interpretation Negative Tobacco use other than smoking: Question Answer Notes Are you an other tobacco user? No Section Notes: Patient's right knee is bone on bone. Patient's right knee is bone on bone. Patient's right knee is bone on bone. Patient's right knee is bone on bone. Patient's right knee is bone on bone. Patient's right knee is bone on bone. Patient's right knee is bone on bone. Patient's right knee is bone on bone. Patient's right knee is bone on bone. Patient's right knee is bone on bone. Patient's right knee is bone on bone. Patient's right knee is bone on bone. Patient's right knee is bone on bone. Patient's right knee is bone on bone. Patient's right knee is bone on bone. Patient's right knee is bone on bone. Patient's right knee is bone on bone. Patient's right knee is bone on bone. Patient's right knee is bone on bone. Patient's right knee is bone on bone. Patient's right knee is bone on bone. Patient's right knee is bone on bone. Patient's right knee is bone on bone. Patient's right knee is bone on bone. Patient's right knee is bone on bone. Patient's right knee is bone on bone. Patient's right knee is bone on bone. Patient's right knee is bone on bone. Patient's right knee is bone on bone. Patient's right knee is bone on bone. Patient's right knee is bone on bone. Patient's right knee is bone on bone. Patient's right knee is bone on bone. Patient's right knee is bone on bone. Patient's right knee is bone on bone. Patient's right knee is bone on bone. Patient's right knee is bone on bone. Patient's right knee is bone on bone. Patient's right knee is bone on bone. Patient's right knee is bone on bone. Patient's right knee is bone on bone. Patient's right knee is bone on bone. Patient's right knee is bone on bone. Patient's right knee is bone on bone. Patient's right knee is bone on bone. Patient's right knee is bone on bone. Patient's right knee is bone on bone. Patient's right knee is bone on bone. Problems Problem Type SNOMED Code ICD Code Onset Dates Problem Status W/U Status Risk Notes Problem Polyneuropathy due to type 2 diabetes mellitus (161033140) Type 2 diabetes mellitus with diabetic polyneuropathy (E11.42) Active confirmed Problem Acquired hallux valgus (86139158) Hallux valgus (acquired), right foot (M20.11) Active confirmed Problem Non-pressure ulcer lower limb (490015953) Non-pressure chronic ulcer of other part of right foot limited to breakdown of skin (L97.511) Active confirmed Problem Acquired hallux valgus (00057207) Hallux valgus (acquired), left foot (M20.12) Active confirmed Problem Acquired hammer toe of right foot (2524647007989892 ) Other hammer toe(s) (acquired), right foot (M20.41) Active confirmed Problem Acquired hammer toe of left foot (8684426248382162 ) Other hammer toe(s) (acquired), left foot (M20.42) Active confirmed Problem Non-pressure ulcer lower limb (071845610) Non-pressure chronic ulcer of other part of right foot with fat layer exposed (L97.512) Active confirmed Problem 716546969 Neuropathy (G62.9) Active confirmed Problem 916025844 Unsteady gait (R26.81) Active confirmed Problem 902594231 Flexion contracture of joint of right foot (M24.574) Active confirmed Problem 821333898 Need for assistance due to unsteady gait (R26.89) Active confirmed Problem 068051279 Skin ulcer of left heel, limited to breakdown of skin (L97.421) Active confirmed Problem 458195588 Skin ulcer of left great toe with fat layer exposed (L97.522) Active confirmed Vital Signs Blood pressure diastolic 63 mm Hg 10/11/2024 Height 5ft1in in 10/11/2024 Blood pressure systolic 116 mm Hg 10/11/2024 Weight 290 lbs 10/11/2024 BMI 54.79 kg/m2 10/11/2024 Procedures Procedure Date Ordered Date Performed Result Body Sit e 83556-LGFMBUA SKIN/TISSUE 03/11/2024 N/A 96025-PATE SKIN LESIONS, 2 TO 4 03/11/2024 N/A R7771-AIVFPOPS DYSTROPHIC NAILS ANY # 03/11/2024 N/A 67135-VBCQ SKIN LESIONS, 2 TO 4 07/01/2024 N/A B2311-EXPEPFKD DYSTROPHIC NAILS ANY # 07/01/2024 N/A 97768-UPBV SKIN LESIONS, 2 TO 4 10/11/2024 N/A F7138-BGOKZVIF DYSTROPHIC NAILS ANY # 10/11/2024 N/A Encounters Encounter Location Date Provider Diagnosis [address] [address] 03/11/2024 Julee Black Non-pressure chronic ulcer of other part of right foot limited to breakdown of skin L97.511 ; Type 2 diabetes mellitus with diabetic polyneuropathy E11.42 and Skin ulcer of left great toe with fat layer exposed L97.[address] [address] 07/01/2024 Julee Black Non-pressure chronic ulcer of other part of [...] and Hammer toe of right foot M20.[address] [address] 10/11/2024 Julee Black Type 2 diabetes mellitus with diabetic polyneuropathy E11.[address] [address] 03/11/[address] [address] 09/27/[address] [address] 01/05/2025 [facility] [address] [place] [address] 02/17/2025 Julee Dickens [facility] Encounter Date Diagnosis (ICD Code) Assessment Notes Treatment Notes Treatment Clinical Notes Section Notes 03/11/2024 Type 2 diabetes mellitus with diabetic polyneuropathy (ICD-10 - E11.42) 03/11/2024 Non-pressure chronic ulcer of other part of right foot limited to breakdown of skin (ICD-10 - L97.511) 07/01/2024 Type 2 diabetes mellitus with diabetic polyneuropathy (ICD-10 - E11.42) 07/01/2024 Non-pressure chronic ulcer of other part of right foot limited to breakdown of skin (ICD-10 - L97.511) 10/11/2024 Type 2 diabetes mellitus with diabetic polyneuropathy (ICD-10 - E11.42) 07/01/2024 Skin ulcer of left great toe with fat layer exposed (ICD-10 - L97.522) 03/11/2024 Skin ulcer of left great toe with [...] foot (ICD-10 - M20.41) Plan Of Treatment Pending Test Test Name Order Date *Wound Culture 10/02/2015 *Wound Culture 10/28/2017 *Wound Culture 11/27/2018 *Wound Culture 12/17/2018 X ray : Foot, right 3V 12/14/2018 57370-MYRAUZP NAIL, 6 OR MORE 02/16/2018 70087-XPYXYUI NAIL, 6 OR MORE 04/20/2018 03564-TJXGTCE NAIL, 6 OR MORE 06/29/2018 43216-MPCMXLG NAIL, 6 OR MORE 09/25/2017 26195-PTWUROR NAIL, 6 OR MORE 12/22/2017 20999-ZYNKOWQ NAIL, 6 OR MORE 09/19/2016 57941-CJGLVCJ NAIL, 6 OR MORE 10/09/2016 08617-RANDUAP NAIL, 6 OR MORE 02/17/2017 02878-LBTZJFK NAIL, 6 OR MORE 06/19/2017 19054-XMFTVKF NAIL, 6 OR MORE 03/24/2019 10053-DFETLQS NAIL, 6 OR MORE 07/13/2019 02979-QSGDCEF NAIL, 6 OR MORE 10/18/2019 39881-AAUOQTA NAIL, 6 OR MORE 01/31/2020 78323-WDNSBIX NAIL, 6 OR MORE 04/24/2020 44023-KFKRSWJ NAIL, 6 OR MORE 07/27/2020 11412-OKWBOUX NAIL, 6 OR MORE 12/13/2020 00912-MOQJBTQ NAIL, 6 OR MORE 03/12/2021 48240-DPTYMFI NAIL, 6 OR MORE 05/20/2016 47079-AUCJZBC NAIL, 6 OR MORE 12/04/2015 36709-PIUGRTQ NAIL, 6 OR MORE 02/14/2016 64085-YVZDEXL NAIL, 6 OR MORE 05/08/2016 86836-FSEDIHS NAIL, 6 OR MORE 08/02/2015 28987-AQEOGLV NAIL, 6 OR MORE 08/07/2015 51528-CWXMEQC NAIL, 6 OR MORE 10/29/2013 40891-MCCOIOX NAIL, 6 OR MORE 04/27/2014 05168-IEDSJFY NAIL, 6 OR MORE 07/27/2014 78454-KCUUETM NAIL, 6 OR MORE 10/26/2014 16405-EUYQEIM NAIL, 6 OR MORE 01/25/2015 37206-OORNLPG NAIL, 6 OR MORE 01/13/2012 20880-AXZVNEC NAIL, 6 OR MORE 03/25/2012 73515-FLZPCMS NAIL, 6 OR MORE 06/24/2012 85408-SOILEND NAIL, 6 OR MORE 12/02/2012 08451-UDSDDGK NAIL, 6 OR MORE 02/15/2013 48876-VZPBVJL NAIL, 6 OR MORE 04/22/2013 69822-QDRSMGN NAIL, 1-5 01/19/2014 57699-Bmfuebvw Plate 01/25/2015 01334-Aoppfavz Plate 10/26/2014 59915-Frhtzich Plate 07/27/2014 28389-Plernmdv Plate 08/07/2015 13890-Sqzphcup Plate 08/02/2015 53772-Qqxalkev Plate 05/04/2015 14871-Smvijoxp Plate 10/24/2015 45994-Trbqtpdj Plate 05/20/2013 12898-Qcdbxbjh Plate 06/23/2013 86529-Jcsprvsx Plate 03/31/2013 91364-Arxvxteo Plate 03/01/2013 85932-Mlgaszkw Plate 06/24/2012 01382-Wfgxazcl Plate 09/16/2012 85362-Yvwifafc Plate 03/25/2012 39410-Wuvphigk Plate 06/11/2021 74583-Wvhkwggt Plate 12/13/2020 92363-Avoxwrqu Plate 07/27/2020 23600-Mjfmifik Plate 10/18/2019 40504-Rbznzibf Plate 01/31/2020 01744-Hfnsmcpd Plate Each Additional 92575-Haxqcfna Plate Each Additional 87208-Oxidadau Plate Each Additional 71484-Lghvhblg Plate Each Additional 23497-Kduziqdr Plate Each Additional 20904-FNO 09/23/2013 19825-YVS 10/15/2013 73230-GZC 01/16/2017 61367- Debride <25 sq cm 01/16/2017 46608- Debride <25 sq cm 01/31/2017 38984- Debride <25 sq cm 02/17/2017 28496- Debride <25 sq cm 09/25/2017 89512- Debride <25 sq cm 03/20/2017 58061- Debride <25 sq cm 10/09/2016 85942- Debride <25 sq cm 10/23/2016 20917- Debride <25 sq cm 11/28/2016 64929- Debride <25 sq cm 01/01/2017 87003- Debride <25 sq cm 09/19/2016 47595- Debride <25 sq cm 06/06/2016 58060- Debride <25 sq cm 08/09/2016 50731- Debride <25 sq cm 02/16/2018 29527- Debride <25 sq cm 10/28/2017 63304- Debride <25 sq cm 11/17/2017 93898- Debride <25 sq cm 12/22/2017 01965- Debride <25 sq cm 08/13/2018 37956- Debride <25 sq cm 09/03/2018 09773- Debride <25 sq cm 09/24/2018 10279- Debride <25 sq cm 10/08/2018 59761- Debride <25 sq cm 04/20/2018 33228- Debride <25 sq cm 02/18/2019 68633- Debride <25 sq cm 03/24/2019 65321- Debride <25 sq cm 01/14/2022 36379- Debride <25 sq cm 10/28/2022 45397- Debride <25 sq cm 02/13/2023 53946- Debride <25 sq cm 05/22/2023 97911- Debride <25 sq cm 06/23/2013 37245- Debride <25 sq cm 05/20/2013 73148- Debride <25 sq cm 03/01/2013 54133- Debride <25 sq cm 03/15/2013 47806- Debride <25 sq cm 03/31/2013 34610- Debride <25 sq cm 04/22/2013 58228- Debride <25 sq cm 02/15/2013 51630- Debride <25 sq cm 03/25/2012 19848- Debride <25 sq cm 01/13/2012 49497- Debride <25 sq cm 09/16/2012 13148- Debride <25 sq cm 12/02/2012 37981- Debride <25 sq cm 06/24/2012 62044- Debride <25 sq cm 07/27/2014 97171- Debride <25 sq cm 10/26/2014 49099- Debride <25 sq cm 01/25/2015 39591- Debride <25 sq cm 01/19/2014 37306- Debride <25 sq cm 10/28/2011 33611- Debride <25 sq cm 11/19/2013 76696- Debride <25 sq cm 05/04/2015 79430- Debride <25 sq cm 05/18/2015 79202- Debride <25 sq cm 06/02/2015 71510- Debride <25 sq cm 06/22/2015 45869-WDGKZRP SKIN/TISSUE 05/20/2016 83954-MKMVBGW SKIN/TISSUE 05/08/2016 94453-JTBOXPX SKIN/TISSUE 10/29/2013 51140-WQMJFJI SKIN/TISSUE 04/27/2014 47682-EMSBLJL SKIN/TISSUE 10/13/2012 75532-IPVGJGR SKIN/TISSUE 10/30/2012 78879-YTAOMGS SKIN/TISSUE 09/17/2011 99949-RMBBOMG SKIN/TISSUE 10/15/2013 14345-DGDRSEN SKIN/TISSUE 01/18/2019 27386-QAYHQPA SKIN/TISSUE 02/01/2019 12493-AJJWIRT SKIN/TISSUE 07/23/2016 63159-UHNATZM SKIN/TISSUE 01/31/2017 31490-RTHQPKE SKIN/TISSUE 03/11/2024 68338 I&D ABSCESS- SIMPLE,SINGLE 011 06830-EEXN SKIN LESIONS, OVER 4 05/22/20 23 94707-HJAM SKIN LESIONS, OVER 4 02/14/20 23 72138-WSMX SKIN LESIONS, 2 TO 4 10/28/20 22 93850-ZETQ SKIN LESIONS, 2 TO 4 09/24/20 21 16131-OUYH SKIN LESIONS, 2 TO 4 04/22/20 22 74396-SGPT SKIN LESIONS, 2 TO 4 07/22/20 22 49015-BMYI SKIN LESIONS, 2 TO 4 06/11/20 21 93628-TXWQ SKIN LESIONS, 2 TO 4 07/01/20 24 45766-YTHE SKIN LESIONS, 2 TO 4 10/11/20 24 98590-ABFB SKIN LESIONS, 2 TO 4 09/01/20 23 27341-YSEF SKIN LESIONS, 2 TO 4 12/11/19 24 67634-KUKE SKIN LESIONS, 2 TO 4 03/11/20 24 74280-YVIS NAIL(S) 07/22/2022 22265-OMIS NAIL(S) 04/22/2022 72836-LXUM NAIL(S) 09/24/2021 40798-MPNI NAIL(S) 01/14/2022 26634-HXAQ NAIL(S) 10/28/2022 O4735-NJECCPSQ DYSTROPHIC NAILS ANY # N0895-CSBRUDUE DYSTROPHIC NAILS ANY # B8622-PTNSLGEG DYSTROPHIC NAILS ANY # M4557-EYCWTUXC DYSTROPHIC NAILS ANY # E2436-ZKRZHGIW DYSTROPHIC NAILS ANY # U7949-STBNRUZV DYSTROPHIC NAILS ANY # E0083-QYASNLOF DYSTROPHIC NAILS ANY # H2613-FMALELMB DYSTROPHIC NAILS ANY # 74696 - Tenotomy, open flexor 01/16/2018 Next Appt Details Provider Name:Julee Dickens , 05/30/2025 01:00:00 PM, [address] [facility], [place], [address], Insurance Providers Payer Name Payer Address Payer Phone Subscriber Number Group Number Insured Name Patient Relationship to Insured Coverage Start Date Coverage End Date Medicare National [facility] [address] [facility] [place] [address] [id number] Gina Milan Self - patient is the insured [facility] [address] [place] [address] [id number] Gina Milan Self - patient is the insured Medical (General) History Medical History History ICD Code chicken pox reflux osteoporosis neuropathy high blood pressure Cholesterol back, hip, knee pain Arthritis sleep apnea pre type II diabetes Carpal tunnel Surgical History Surgery Date(Month/Year) spinal stenosis surgery tonsillectomy 1971 [employer] w/K-Wire 2nd Left 08/23 Colonoscopy 04/03/2018 Kyara Hairston, LIV 2nd R SE: Sag Saw & [place] e 11/18/2018 Hospitalization History Reason Date(Month/Year) [facility]18 [facility] lumbar fusion 04/14/2017
== END 2025-03-08 12:34 | disposition home or self-care (01) ==
LOC: HO.HSMS 11:11
PROVIDERS: PCP Internal Medicine; Visit Provider Nurse Practitioner Family
DX: G47.33 Obstructive sleep apnea (adult) (pediatric) (principal); E66.01 Morbid (severe) obesity due to excess calories
CPT/HCPCS: 99213

== ENCOUNTER → 2025-03-08 11:10 | Outpatient (BNVA) | payer MEDICARE, OTHER, SELFPAY | PROVIDERS: PCP Internal Medicine; Visit Provider Nurse Practitioner Family | DX: G47.33 Obstructive sleep apnea (adult) (pediatric) (principal); E66.01 Morbid (severe) obesity due to excess calories | CPT/HCPCS: 99212 ==

== ENCOUNTER 2025-03-15 12:49 | Outpatient (AMB) | payer MEDICARE, OTHER, MEDICAID, SELFPAY ==
--- NOTE | 2025-03-15 12:56 | A.OFFVIS_ITS ---
Vital Signs 3 03/15/25 13:06 Height 5 ft 1 in BMI Reason not done Palliative Care Patient BP 135/63 Blood Pressure Location Lt brachial Position Sitting Pulse 92 Intake Visit Reasons: skin graft of wounds on both feet Intake Note: Patient is seen in office for possible skin graft of bilateral feet. Pt c/o: seen wound care for a couple of yrs due to open wounds above bilateral feet, here to discuss skin graft, uses wound vac on rigth foot County Nurse Required: No Accompanied by: Self / Same As Patient Allergies Adhesive Bandages Allergy (Unknown, Verified 03/15/25 13:05) rash adhesive tape [TAPE,ADHESIVE] Allergy (Unknown, Verified 03/15/25 13:05) RASH amlodipine Allergy (Unknown, Verified 03/15/25 13:05) edema atenolol Allergy (Unknown, Verified 03/15/25 13:05) Bradycardia bisoprolol [From Zebeta] Allergy (Unknown, Verified 03/15/25 13:05) Diarrhea labetalol Allergy (Unknown, Verified 03/15/25 13:05) n/a latex [LATEX] Allergy (Unknown, Verified 03/15/25 13:05) RASH metformin Adverse Reaction (Intermediate, Verified 03/15/25 13:05) Diarrhea semaglutide [From Ozempic] Adverse Reaction (Intermediate, Verified 03/15/25 13:05) Diarrhea vicodin Allergy (Unknown, Uncoded 03/15/25 13:05) heart palpitation actos Adverse Reaction (Intermediate, Uncoded 03/15/25 13:05) Abdominal Pain Medication List - Last Reconciled 03/15/25 by Quinton Lopez MD acetaminophen ER 1,300 mg PO Q12H aspirin 81 mg PO DAILY carvedilol 6.25 mg PO BID catheter (Bardex All-Silicone Duncan Catheter) As directed celecoxib 200 mg PO BID cholecalciferol (vitamin D3) 25 mcg PO DAILY furosemide 40 mg PO DAILY gabapentin 900 mg (3 x 300 mg) PO BEDTIME hydralazine 50 mg PO BID irbesartan 300 mg PO DAILY Lactobacillus acidophilus (Acidophilus capsule) 1,000 mmu cells PO DAILY loperamide (Imodium A-D) 2 mg PO Q4H PRN magnesium oxide 500 mg PO DAILY Mounjaro (tirzepatide) 2.5 mg (0.5 mL) subcut QWEEK NS multivitamin 1 tab PO DAILY nystatin (Nystop) 1 appl topical BID omega 5-luc-jjg-fish oil 1,000 (120-180) mg (Fish Oil) 1 cap PO DAILY omeprazole 20 mg PO DAILY pregabalin 150 mg PO BID rosuvastatin 10 mg PO BEDTIME spironolactone 25 mg PO DAILY terazosin 20 mg (2 x 10 mg) PO DAILY HPI Comments Details: 64-year-old female patient with a history of spinal stenosis, wheelchair bound presenting with bilateral foot ulcers. These initially began after foot care dry skin. The patient reports a prior bunionectomy on the right great toe in the ulcer seems to recur at this location. The wounds were initially healed last August however in September they once again reappeared. It was determined to have underlying osteomyelitis and therefore was placed on linezolid for approximately 4 weeks. She is currently undergoing wound VAC treatment to the right foot and silver alginate treatment to the left foot and making good progress. He presents today to review the option of split-thickness skin graft to the bilateral foot wounds. She also has a history of venous insufficiency and previously underwent venous ablation at [facility]. [facility] Medical History TONI (obstructive sleep apnea) Osteomyelitis Bunion of right foot Hyperglycemia Morbid obesity Foot callus Neuropathy Edema Urinary retention Plantar fasciitis Obesity TONI on CPAP Osteoarthritis Spinal stenosis Hypertension Surgical History History of carpal tunnel surgery H/O foot surgery History of tonsillectomy H/O colonoscopy History of lumbar surgery Family History Father History of heart attack Mother HTN (hypertension) Stroke Brother Stomach cancer Brother History of heart attack HTN (hypertension) Diabetes mellitus Lung cancer Brother Bladder cancer Heart attack Social History Housing: House Alcohol intake: never Patient Tobacco Use Status: Never used Tobacco e-Cigarette/Vaping Use: Never Used Second Hand Smoke Exposure: No service: No Current occupational status: disabled Current occupation: right hand dominant Cognitive needs: No Hearing needs: No Vision needs: Yes Review of Systems Const All systems reviewed & are unremarkable except as noted in HPI and below Physical Exam Vital Signs: Last Vital Signs Pulse 92 03/15/25 13:06 BP 135/63 03/15/25 13:06 Const General: no acute distress Nutritional Appearance: obese Orientation/consciousness: patient oriented x3 Limitations: wheelchair Resp Effort & Inspection: normal respiratory effort Skin General skin exam: no rashes or lesions noted Neuro General: patient oriented x3 Extrem Other: Right foot open wound on great toe: 5 x 3.5 cm and 1.5 cm round lesion at distal great toe. Left foot 1.5 x 2 cm and 1.5 x 2.5 cm open wound both with good granulation tissue Assessment & Plan Assessment & Plan (1) Chronic foot ulcer: Comment: Bilateral Code(s): L97.509 - Non-pressure chronic ulcer of other part of unspecified foot with unspecified severity Category: Medical Qualifiers: Laterality: unspecified laterality Non-pressure ulcer stage: with fat layer exposed Qualified Code(s): L97.502 - Non-pressure chronic ulcer of other part of unspecified foot with fat layer exposed Plan 64-year-old female patient, wheelchair-bound patient was spinal stenosis and lack of sensation in her lower extremities presenting with bilateral lower extremity ulceration in the feet mainly over the great toes. She [facility] including wound VAC treatment. She has a good granulated base and would be an excellent candidate for skin graft. I reviewed the procedure, risks, and alternatives and she consents to split-thickness skin graft harvested from the left thigh to the bilateral feet. This will be scheduled as a short-stay surgery. Coding Level of Care Code New Pt Level 4 (71320) Diagnoses Chronic foot ulcer with fat layer exposed, unspecified laterality L97.502 Laterality: unspecified laterality Non-pressure ulcer stage: with fat layer exposed
[2025-03-15 13:06] VITALS: BP 135/63; PULSE 92
--- OUTSIDE RECORDS SUMMARY | 2025-03-15 13:58 | XMS_ITS ---
Author [facility] Address [address] [facility] [place] [address] Care Team Providers Care Editor Managing Newspaper Name Role Phone Yolanda Jack MD Primary Care Provider Unavaila ble Black, Julee Unavailable [phone] Allergies Allergen (clinical drug ingredient) Drug/Non Drug [...] Active Encounters Encounter Location Date Provider Diagnosis [facility] [address] [address] 01/10/2025 Julee Dickens Plan Of Treatment Next Appt Details Provider Name:Julee Antonia Dickens , 05/30/2025 01:00:00 PM, [address] [place] [address], [id number], Progress Notes * Gina MCCULLOUGH MDOB:[birth year] (64 yo F)Acc No.[id number]:01/10/2025 Progress Note Patient:?Gina MCCULLOUGH Provider:?Julee Dickens DPM :1960???Age:64 Y???Sex:Female D ate:01/10/2025 Address:[address] [place] [address], [address], [facility] Pcp:Yolanda Jack MD Subjective: * Chief Complaints: [...] Dickens DPM Date:?2024 Generated for Wilder ibarra/Cuong/Gabriella on:?03/15/2025 01:58 PM EDT
--- OUTSIDE RECORDS SUMMARY | 2025-03-15 13:58 | XMS_ITS ---
Author Organization [facility] Address [address] [place] [address] Care Team Providers Care Slurry Worker Name Role Phone Yolanda Jack MD Primary Care Provider Unavaila apolinar Maninder Julee Unavailable [phone] Encounters Encounter Location Date Provider Diagnosis [address] [address] 02/21/2025 Julee Dickens Plan Of Treatment Next Appt Details Provider Name:Julee Dickens , 05/30/2025 01:00:00 PM, [address] [place], [address], Progress Notes * Gina MCCULLOUGH MDOB:[birth year] (64 yo F)Acc No.[id number]:02/21/2025 Progress Note Patient:?Gina MCCULLOUGH Provider:?Julee Dickens DPM :1960???Age:64 Y???Sex:Female D ate:02/21/2025 Address:[address], [address], [place] Pcp:Yolanda Jack MD Subjective: * Chief Complaints: [...]
--- OUTSIDE RECORDS SUMMARY | 2025-03-15 13:59 | XMS_ITS ---
Author Organization [facility] Address [address] [place] [address] Care Team Providers Care Social Security Benefits Interviewer Name Role Phone Yolanda Jack MD Primary Care Provider Unavaila apolinar Dickens Julee Unavailable [phone] REASON FOR VISIT r/s 02/21 Encounters Encounter Location Date Provider Diagnosis [address] [address] 02/17/2025 Julee Dickens Plan Of Treatment Next Appt Details Provider Name:Julee Knight Maninder , 05/30/2025 01:00:00 PM, [address] [place] [address], [address], Progress Notes * Gina MCCULLOUGH MDOB:[birth year] (64 yo F)Acc No.[id number]:02/17/2025 Patient:?Gina MCCULLOUGH :1960???Age:64 Y???Sex:Female Address:[address], [address], [place], [address] * true * Date:? Generated for Printi ng/Faxing/eTransmitting on:?03/15/2025 01:58 PM EDT
--- OUTSIDE RECORDS SUMMARY | 2025-03-15 13:59 | XMS_ITS | Patient Health Record ---
Author Organization [facility] Address [address] [facility] [place] [address] Care Team Providers Care Construction Assistant Name Role Phone Yolanda Jack MD Primary Care Provider Unavaila ble Black, Julee Unavailable [phone] Allergies Allergen (clinical drug ingredient) Drug/Non Drug Allergy documented on EMR Reaction Allergy Type Onset Date Status Adhesive rash Allergy Active Latex Latex rash Allergy Active Results Component Value Reference Range Notes HEMOGLOBIN A1C (GLYCOHEMOGLO BIN) Reviewed date:11/13/2024 03:10:33 [...] Polyneuropathy due to type 2 diabetes mellitus (935084529) Type 2 diabetes mellitus with diabetic polyneuropathy (E11.42) Active confirmed Problem Acquired hallux valgus (02136712) Hallux valgus (acquired), right foot (M20.11) Active confirmed Problem Non-pressure ulcer lower limb (396624296) Non-pressure chronic ulcer of other part of right foot limited to breakdown of skin (L97.511) Active confirmed Problem Hallux valgus (acquired), left foot (M20.12) Active confirmed Problem Acquired hammer toe of right foot (6170849709867522 ) Other hammer toe(s) (acquired), right foot (M20.41) Active confirmed Problem Acquired hammer toe of left foot (2086320533119387 ) Other hammer toe(s) (acquired), left foot (M20.42) Active confirmed Problem Non-pressure ulcer lower limb (439104204) Non-pressure chronic ulcer of other part of right foot with fat layer exposed (L97.512) Active confirmed Problem 541200090 Neuropathy (G62.9) Active confirmed Problem 800748244 Unsteady gait (R26.81) Active confirmed Problem 282299315 Flexion contracture of joint of right foot (M24.574) Active confirmed Problem 552095752 Need for assistance due to unsteady gait (R26.89) Active confirmed Problem 823599465 Skin ulcer of left heel, limited to breakdown of skin (L97.421) Active confirmed Problem 762736104 Skin ulcer of left great toe with fat layer exposed (L97.522) Active confirmed Vital Signs Blood pressure diastolic 63 mm Hg 10/11/2024 Height 5ft1in in 10/11/2024 Blood pressure systolic 116 mm Hg 10/11/2024 Weight 290 lbs 10/11/2024 BMI 54.79 kg/m2 10/11/2024 Procedures Procedure Date Ordered Date Performed Result Body Sit e 45133-HEQB SKIN LESIONS, 2 TO 4 07/01/2024 N/A W0745-NGJWCHLJ DYSTROPHIC NAILS ANY # 07/01/2024 N/A 51205-GVZQ SKIN LESIONS, 2 TO 4 10/11/2024 N/A V8283-XVPLSDQG DYSTROPHIC NAILS ANY # 10/11/2024 N/A Encounters Encounter Location Date Provider Diagnosis [facility] [place] [address] [place] [address] 07/01/2024 Julee Black Non-pressure chronic ulcer of [...] and Hammer toe of right foot M20.[address] [facility] [address] [address] 10/11/2024 Julee Dickens Type 2 diabetes mellitus with diabetic polyneuropathy E11.[address] [facility] [address] 09/27/2024 Juleejocelyn Dickens [facility] [address] 01/05/2025 Julee Dickens [facility] [address] 02/17/2025 Julee Dickens Assessments Encounter Date Diagnosis (ICD Code) Assessment Notes Treatment Notes Treatment Clinical Notes Section Notes 07/01/2024 Type 2 diabetes mellitus with diabetic [...] X ray : Foot, right 3V 12/14/2018 70557-IBETNWE NAIL, 6 OR MORE 02/16/2018 65626-DLRZHKP NAIL, 6 OR MORE 04/20/2018 72232-MFEBJSR NAIL, 6 OR MORE 06/29/2018 77681-CFBNCLV NAIL, 6 OR MORE 09/25/2017 97298-YQVFRVI NAIL, 6 OR MORE 12/22/2017 62769-YCOYINL NAIL, 6 OR MORE 09/19/2016 35014-KALTPJW NAIL, 6 OR MORE 10/09/2016 90737-XHEIYGN NAIL, 6 OR MORE 02/17/2017 58806-YMLVGOF NAIL, 6 OR MORE 06/19/2017 35313-VZZYLXO NAIL, 6 OR MORE 03/24/2019 04756-IXFJOGJ NAIL, 6 OR MORE 07/13/2019 12808-GLAYQJT NAIL, 6 OR MORE 10/18/2019 99090-HWCOVKE NAIL, 6 OR MORE 01/31/2020 56964-ENZTAMT NAIL, 6 OR MORE 04/24/2020 74516-PRPKKYB NAIL, 6 OR MORE 07/27/2020 29739-JHSXIQB NAIL, 6 OR MORE 12/13/2020 62394-KZLSVMU NAIL, 6 OR MORE 03/12/2021 42960-UHLHBCG NAIL, 6 OR MORE 05/20/2016 69913-QCEYDDZ NAIL, 6 OR MORE 12/04/2015 52763-NOFSGKE NAIL, 6 OR MORE 02/14/2016 78889-EQBVCDL NAIL, 6 OR MORE 05/08/2016 82659-YTBLIEN NAIL, 6 OR MORE 08/02/2015 91291-TNGLFAL NAIL, 6 OR MORE 08/07/2015 21560-DNWDZFY NAIL, 6 OR MORE 10/29/2013 09459-FVSANMK NAIL, 6 OR MORE 04/27/2014 94762-BVOIRAJ NAIL, 6 OR MORE 07/27/2014 24217-DKKDQGV NAIL, 6 OR MORE 10/26/2014 22763-SCSQYMT NAIL, 6 OR MORE 01/25/2015 63166-BUIONNY NAIL, 6 OR MORE 01/13/2012 43620-LPQKCBJ NAIL, 6 OR MORE 03/25/2012 11060-UIJUDKH NAIL, 6 OR MORE 06/24/2012 57595-TMHIJKY NAIL, 6 OR MORE 12/02/2012 03570-JIEUUXA NAIL, 6 OR MORE 02/15/2013 73007-OJWXZUP NAIL, 6 OR MORE 04/22/2013 02668-BAZRDZB NAIL, 1-5 01/19/2014 09027-Uafbnkmg Plate 01/25/2015 76848-Piupfuzf Plate 10/26/2014 18605-Bttgxioj Plate 07/27/2014 78394-Vnwovkmx Plate 08/07/2015 70389-Hlbmckxy Plate 08/02/2015 02635-Dtddgpvw Plate 05/04/2015 53773-Pvrbckuh Plate 10/24/2015 25551-Burwsrpc Plate 05/20/2013 60981-Zxbrfisb Plate 06/23/2013 01792-Krehvlxg Plate 03/31/2013 96678-Bjrwkrfs Plate 03/01/2013 85675-Glmzzagd Plate 06/24/2012 49464-Fcrlaoyb Plate 09/16/2012 75775-Gymzqpwt Plate 03/25/2012 86846-Rcsswzek Plate 06/11/2021 21312-Rpnjvkhk Plate 12/13/2020 35285-Vxbspbbo Plate 07/27/2020 80951-Hmraqrxt Plate 10/18/2019 41061-Sgomygrq Plate 01/31/2020 62068-Ubeyyhyh Plate Each Additional 00011-Xaknsshh Plate Each Additional 14186-Kfvuccuv Plate Each Additional 03079-Edhophej Plate Each Additional 01849-Nksqhapb Plate Each Additional 87704-MIM 09/23/2013 05513-NJV 10/15/2013 07594-USI 01/16/2017 91616- Debride <25 sq cm 01/16/2017 66421- Debride <25 sq cm 01/31/2017 39270- Debride <25 sq cm 02/17/2017 82643- Debride <25 sq cm 09/25/2017 35681- Debride <25 sq cm 03/20/2017 76767- Debride <25 sq cm 10/09/2016 96761- Debride <25 sq cm 10/23/2016 54265- Debride <25 sq cm 11/28/2016 98191- Debride <25 sq cm 01/01/2017 05287- Debride <25 sq cm 09/19/2016 24035- Debride <25 sq cm 06/06/2016 44744- Debride <25 sq cm 08/09/2016 21888- Debride <25 sq cm 02/16/2018 75727- Debride <25 sq cm 10/28/2017 44211- Debride <25 sq cm 11/17/2017 73307- Debride <25 sq cm 12/22/2017 25154- Debride <25 sq cm 08/13/2018 77916- Debride <25 sq cm 09/03/2018 51480- Debride <25 sq cm 09/24/2018 21569- Debride <25 sq cm 10/08/2018 93159- Debride <25 sq cm 04/20/2018 50818- Debride <25 sq cm 02/18/2019 15567- Debride <25 sq cm 03/24/2019 10907- Debride <25 sq cm 01/14/2022 88169- Debride <25 sq cm 10/28/2022 62695- Debride <25 sq cm 02/13/2023 52499- Debride <25 sq cm 05/22/2023 62756- Debride <25 sq cm 06/23/2013 22610- Debride <25 sq cm 05/20/2013 93159- Debride <25 sq cm 03/01/2013 30244- Debride <25 sq cm 03/15/2013 42727- Debride <25 sq cm 03/31/2013 59991- Debride <25 sq cm 04/22/2013 63075- Debride <25 sq cm 02/15/2013 60642- Debride <25 sq cm 03/25/2012 69543- Debride <25 sq cm 01/13/2012 28388- Debride <25 sq cm 09/16/2012 36779- Debride <25 sq cm 12/02/2012 50867- Debride <25 sq cm 06/24/2012 85184- Debride <25 sq cm 07/27/2014 83769- Debride <25 sq cm 10/26/2014 40617- Debride <25 sq cm 01/25/2015 13878- Debride <25 sq cm 01/19/2014 28412- Debride <25 sq cm 10/28/2011 76292- Debride <25 sq cm 11/19/2013 06799- Debride <25 sq cm 05/04/2015 79727- Debride <25 sq cm 05/18/2015 89335- Debride <25 sq cm 06/02/2015 71756- Debride <25 sq cm 06/22/2015 85022-LXNLRCQ SKIN/TISSUE 05/20/2016 26553-ERFGTSX SKIN/TISSUE 05/08/2016 61389-HTUARJS SKIN/TISSUE 10/29/2013 00041-KFVRQRD SKIN/TISSUE 04/27/2014 21593-UMMVCZF SKIN/TISSUE 10/13/2012 23563-VVXQTIE SKIN/TISSUE 10/30/2012 78430-HVMGNYU SKIN/TISSUE 09/17/2011 19592-SPQABOB SKIN/TISSUE 10/15/2013 39250-VESAJKP SKIN/TISSUE 01/18/2019 52480-ODEIOZP SKIN/TISSUE 02/01/2019 82675-UGJSTXQ SKIN/TISSUE 07/23/2016 59208-ORUMVBZ SKIN/TISSUE 01/31/2017 08128-HSQDMMD SKIN/TISSUE 03/11/2024 97792 I&D ABSCESS- SIMPLE,SINGLE 011 18709-TCIT SKIN LESIONS, OVER 4 05/22/20 23 92018-HJGX SKIN LESIONS, OVER 4 02/14/20 23 25390-VFIV SKIN LESIONS, 2 TO 4 10/28/20 94213-GNTZ SKIN LESIONS, 2 TO 4 09/24/20 29496-FUSN SKIN LESIONS, 2 TO 4 04/22/20 22 06979-KZEH SKIN LESIONS, 2 TO 4 07/22/20 41051-BGUH SKIN LESIONS, 2 TO 4 06/11/20 21 86924-VMRS SKIN LESIONS, 2 TO 4 07/01/20 24 66581-HNES SKIN LESIONS, 2 TO 4 10/11/20 24 39758-FQJT SKIN LESIONS, 2 TO 4 09/01/20 23 60958-ZPQG SKIN LESIONS, 2 TO 4 12/11/19 24 57913-DKZY SKIN LESIONS, 2 TO 4 03/11/20 24 40563-IPDE NAIL(S) 07/22/2022 30693-NWGJ NAIL(S) 04/22/2022 83847-UIHJ NAIL(S) 09/24/2021 10771-LDHR NAIL(S) 01/14/2022 71544-AOJU NAIL(S) 10/28/2022 Z2629-MJSRPGBB DYSTROPHIC NAILS ANY # N7857-SGRSLRKH DYSTROPHIC NAILS ANY # T2126-YRXGYJAB DYSTROPHIC NAILS ANY # Z6312-YSHTZANA DYSTROPHIC NAILS ANY # C7728-OHSOBXDT DYSTROPHIC NAILS ANY # X4717-VSIYYAVQ DYSTROPHIC NAILS ANY # F3273-CKVUBBJI DYSTROPHIC NAILS ANY # X2212-HXUBTNGB DYSTROPHIC NAILS ANY # 78587 - Tenotomy, open flexor 01/16/2018 Next Appt Details Provider Name:Julee Dickens , 05/30/2025 01:00:00 PM, [address] [facility], [place], [address], Insurance Providers Payer Name Payer Address Payer Phone Subscriber Number Group Number Insured Name Patient Relationship to Insured Coverage Start Date Coverage End Date Medicare National Govt [facility] [address] [place] [address] [id number] Gina Milan Self - patient is the insured [facility] [address] [place] [id number] Gina Milan Self - patient is the insured Medical (General) History Medical History History ICD Code chicken pox reflux osteoporosis neuropathy high blood pressure Cholesterol back, hip, knee pain Arthritis sleep apnea pre type II diabetes Carpal tunnel Surgical History Surgery Date(Month/Year) spinal stenosis surgery tonsillectomy 1971 Hammertoe Repair w/K-Wire 2nd Left 08/23 Colonoscopy 04/03/2018 [facility] 2nd R SE: Sag Saw & Kwir e 11/18/2018 Hospitalization History Reason Date(Month/Year) [place] [facility] Right [facility] Ul[facility] 08/06/18 [facility] lumbar fusion 04/14/2017
== END 2025-03-15 14:25 | disposition home or self-care (01) ==
LOC: HO.HGS 12:50
PROVIDERS: PCP Internal Medicine; Visit Provider Surgery
DX: L97.502 Non-pressure chronic ulcer of other part of unspecified foot with fat layer exposed (principal)
CPT/HCPCS: 99204

== ENCOUNTER → 2025-03-15 12:49 | Outpatient (BNVA) | payer MEDICARE, OTHER, MEDICAID, SELFPAY | PROVIDERS: PCP Internal Medicine; Visit Provider Surgery | DX: L97.512 Non-pressure chronic ulcer of other part of right foot with fat layer exposed (principal); L97.522 Non-pressure chronic ulcer of other part of left foot with fat layer exposed; Z99.3 Dependence on wheelchair | CPT/HCPCS: 99202 ==

== ENCOUNTER → 2025-04-07 11:26 | Outpatient (BNV) | payer MEDICARE, OTHER, MEDICAID, SELFPAY | PROVIDERS: PCP Internal Medicine; Visit Provider Internal Medicine Cardiovascular Disease | DX: Z01.818 Encounter for other preprocedural examination (principal) | CPT/HCPCS: 93010 ==

== ENCOUNTER 2025-04-14 07:21 | Day surgery (SDC) | payer MEDICARE, OTHER, SELFPAY ==
--- OUTSIDE RECORDS SUMMARY | 2025-03-22 11:51 | XMS_ITS ---
Author Organization [facility] Address [address] [place] [address] Care Team Providers Care Company Tanker Truck Driver Name Role Phone Yolanda Jack MD Primary Care Provider Unavaila apolinar Maninder Julee Unavailable [phone] Encounters Encounter Location Date Provider Diagnosis [address] [address] 02/21/2025 Julee Dickens Plan Of Treatment Next Appt Details Provider Name:Julee Dickens , 05/30/2025 01:00:00 PM, [address] [place], [address], Progress Notes * Gina MCCULLOUGH MDOB:[birth year] (64 yo F)Acc No.[id number]:02/21/2025 Progress Note Patient:?Gina MCCULLOUGH Provider:?Julee Dickens DPM :1960???Age:64 Y???Sex:Female D ate:02/21/2025 Address:[address], [address], [place] Pcp:Yolanda Jack MD Subjective: * Chief Complaints: [...] Dickens DPM Date:?2024 Generated for Wilder ibarra/Cuong/Gabriella on:?03/22/2025 11:51 AM EDT
--- OUTSIDE RECORDS SUMMARY | 2025-03-22 11:52 | XMS_ITS | Patient Health Record ---
Author Organization [facility] Address [address] [facility] [place] [address] Care Team Providers Care Claim Attorney Name Role Phone Yolanda Jack MD Primary Care Provider Unavaila ble Black, Julee Unavailable [phone] Allergies Allergen (clinical drug ingredient) Drug/Non Drug [...] Polyneuropathy due to type 2 diabetes mellitus (833068983) Type 2 diabetes mellitus with diabetic polyneuropathy (E11.42) Active confirmed Problem Acquired hallux valgus (56359640) Hallux valgus (acquired), right foot (M20.11) Active confirmed Problem Non-pressure ulcer lower limb (430671073) Non-pressure chronic ulcer of other part of right foot limited to breakdown of skin (L97.511) Active confirmed Problem Acquired hallux valgus (54766056) Hallux valgus (acquired), left foot (M20.12) Active confirmed Problem Acquired hammer toe of right foot (8807848578476362 ) Other hammer toe(s) (acquired), right foot (M20.41) Active confirmed Problem Acquired hammer toe of left foot (4755871977517390 ) Other hammer toe(s) (acquired), left foot (M20.42) Active confirmed Problem Non-pressure ulcer lower limb (307626494) Non-pressure chronic ulcer of other part of right foot with fat layer exposed (L97.512) Active confirmed Problem 628481591 Neuropathy (G62.9) Active confirmed Problem 455622250 Unsteady gait (R26.81) Active confirmed Problem 755167565 Flexion contracture of joint of right foot (M24.574) Active confirmed Problem 269701792 Need for assistance due to unsteady gait (R26.89) Active confirmed Problem 350217229 Skin ulcer of left heel, limited to breakdown of skin (L97.421) Active confirmed Problem 720922134 Skin ulcer of left great toe with fat layer exposed (L97.522) Active confirmed Vital Signs Blood pressure diastolic 63 mm Hg 10/11/2024 Height 5ft1in in 10/11/2024 Blood pressure systolic 116 mm Hg 10/11/2024 Weight 290 lbs 10/11/2024 BMI 54.79 kg/m2 10/11/2024 Procedures Procedure Date Ordered Date Performed Result Body Sit e 18163-XPXY SKIN LESIONS, 2 TO 4 07/01/2024 N/A R9089-WCPCOFTI DYSTROPHIC NAILS ANY # 07/01/2024 N/A 00600-PMAQ SKIN LESIONS, 2 TO 4 10/11/2024 N/A T8136-ZNFISAAD DYSTROPHIC NAILS ANY # 10/11/2024 N/A Encounters Encounter Location Date Provider Diagnosis [facility] [place] [address] [place] [address] 07/01/2024 Julee Dickens Non-pressure chronic ulcer of [...] and Hammer toe of right foot M20.[address] [facility] [address] 10/11/2024 Julee Dickens Type 2 diabetes mellitus with diabetic polyneuropathy [facility]11.[facility] [address] 09/27/2024 [facility] [address] 01/05/2025 [facility] [address] 02/17/2025 Julee Dickens Assessments Encounter Date Diagnosis [...] X ray : Foot, right 3V 12/14/2018 30110-VJHEKEA NAIL, 6 OR MORE 02/16/2018 62837-IUMPMNC NAIL, 6 OR MORE 04/20/2018 37075-UVWSCKX NAIL, 6 OR MORE 06/29/2018 48068-DYOJYGW NAIL, 6 OR MORE 09/25/2017 76860-SMVCGQF NAIL, 6 OR MORE 12/22/2017 28832-VWYMWYI NAIL, 6 OR MORE 09/19/2016 66236-MKFOHKU NAIL, 6 OR MORE 10/09/2016 22485-TRDJAHN NAIL, 6 OR MORE 02/17/2017 30596-TUDQERV NAIL, 6 OR MORE 06/19/2017 52970-GTRXZSO NAIL, 6 OR MORE 03/24/2019 50964-OMQGADF NAIL, 6 OR MORE 07/13/2019 65480-DFUZYCV NAIL, 6 OR MORE 10/18/2019 20063-XEYRAJP NAIL, 6 OR MORE 01/31/2020 79588-QVTNBQZ NAIL, 6 OR MORE 04/24/2020 07904-WIDLLUE NAIL, 6 OR MORE 07/27/2020 27075-RZVCASB NAIL, 6 OR MORE 12/13/2020 39344-JJSUMIA NAIL, 6 OR MORE 03/12/2021 56447-ESNASAE NAIL, 6 OR MORE 05/20/2016 81634-EIMUKKZ NAIL, 6 OR MORE 12/04/2015 04767-BBRSBTG NAIL, 6 OR MORE 02/14/2016 66680-KXKRRPU NAIL, 6 OR MORE 05/08/2016 72239-ZABDLWO NAIL, 6 OR MORE 08/02/2015 23387-EXSUJDI NAIL, 6 OR MORE 08/07/2015 97410-GAKKLUL NAIL, 6 OR MORE 10/29/2013 57445-EHQYATH NAIL, 6 OR MORE 04/27/2014 45798-QAMOEGT NAIL, 6 OR MORE 07/27/2014 95739-DTKNTAZ NAIL, 6 OR MORE 10/26/2014 83861-TGIRVZC NAIL, 6 OR MORE 01/25/2015 04194-ISHHKRP NAIL, 6 OR MORE 01/13/2012 22149-HXJQBZN NAIL, 6 OR MORE 03/25/2012 97626-JCCGVDR NAIL, 6 OR MORE 06/24/2012 76516-MQTKQKN NAIL, 6 OR MORE 12/02/2012 50007-INYCNDI NAIL, 6 OR MORE 02/15/2013 16290-MHHZNYM NAIL, 6 OR MORE 04/22/2013 86647-LLQLHJN NAIL, 1-5 01/19/2014 88881-Izyjjlka Plate 01/25/2015 64747-Dahicwlh Plate 10/26/2014 66013-Isxumdsz Plate 07/27/2014 47626-Bpdsbmho Plate 08/07/2015 94160-Xudckvxl Plate 08/02/2015 71715-Ycmgkegz Plate 05/04/2015 95498-Lynanphm Plate 10/24/2015 26254-Dwybgxro Plate 05/20/2013 22481-Ufbvdtev Plate 06/23/2013 95737-Wqndokey Plate 03/31/2013 92522-Jahwefec Plate 03/01/2013 28020-Waduohur Plate 06/24/2012 06155-Wlrhyrfa Plate 09/16/2012 47496-Hlfatbsi Plate 03/25/2012 22039-Qrbisuxl Plate 06/11/2021 43684-Axlycfdx Plate 12/13/2020 47137-Cnhtbdgn Plate 07/27/2020 99526-Xzmemssx Plate 10/18/2019 28018-Jaoelkyf Plate 01/31/2020 94316-Wufxvfyj Plate Each Additional 38758-Hakmgtom Plate Each Additional 75781-Fhdukqdz Plate Each Additional 06725-Ekhtzesx Plate Each Additional 36096-Lemvutde Plate Each Additional 13541-SAY 09/23/2013 81336-BBB 10/15/2013 07757-YPV 01/16/2017 30378- Debride <25 sq cm 01/16/2017 09399- Debride <25 sq cm 01/31/2017 11316- Debride <25 sq cm 02/17/2017 44005- Debride <25 sq cm 09/25/2017 52180- Debride <25 sq cm 03/20/2017 10753- Debride <25 sq cm 10/09/2016 57057- Debride <25 sq cm 10/23/2016 24287- Debride <25 sq cm 11/28/2016 40548- Debride <25 sq cm 01/01/2017 30070- Debride <25 sq cm 09/19/2016 24597- Debride <25 sq cm 06/06/2016 28899- Debride <25 sq cm 08/09/2016 49736- Debride <25 sq cm 02/16/2018 38105- Debride <25 sq cm 10/28/2017 74952- Debride <25 sq cm 11/17/2017 09577- Debride <25 sq cm 12/22/2017 84660- Debride <25 sq cm 08/13/2018 03503- Debride <25 sq cm 09/03/2018 14125- Debride <25 sq cm 09/24/2018 88738- Debride <25 sq cm 10/08/2018 59242- Debride <25 sq cm 04/20/2018 49793- Debride <25 sq cm 02/18/2019 24696- Debride <25 sq cm 03/24/2019 12326- Debride <25 sq cm 01/14/2022 12056- Debride <25 sq cm 10/28/2022 20241- Debride <25 sq cm 02/13/2023 40925- Debride <25 sq cm 05/22/2023 99395- Debride <25 sq cm 06/23/2013 89712- Debride <25 sq cm 05/20/2013 70108- Debride <25 sq cm 03/01/2013 25886- Debride <25 sq cm 03/15/2013 42730- Debride <25 sq cm 03/31/2013 81978- Debride <25 sq cm 04/22/2013 18145- Debride <25 sq cm 02/15/2013 18320- Debride <25 sq cm 03/25/2012 86662- Debride <25 sq cm 01/13/2012 75919- Debride <25 sq cm 09/16/2012 12524- Debride <25 sq cm 12/02/2012 68889- Debride <25 sq cm 06/24/2012 77268- Debride <25 sq cm 07/27/2014 04523- Debride <25 sq cm 10/26/2014 70062- Debride <25 sq cm 01/25/2015 36563- Debride <25 sq cm 01/19/2014 02782- Debride <25 sq cm 10/28/2011 23077- Debride <25 sq cm 11/19/2013 31272- Debride <25 sq cm 05/04/2015 36972- Debride <25 sq cm 05/18/2015 78587- Debride <25 sq cm 06/02/2015 24344- Debride <25 sq cm 06/22/2015 53019-JFTPMFF SKIN/TISSUE 05/20/2016 64700-ZNMZIUB SKIN/TISSUE 05/08/2016 93485-RVYYESF SKIN/TISSUE 10/29/2013 19086-YTDMROB SKIN/TISSUE 04/27/2014 53428-OTNFXSR SKIN/TISSUE 10/13/2012 71110-RWGNGQC SKIN/TISSUE 10/30/2012 75854-VJOGNUC SKIN/TISSUE 09/17/2011 06657-JYIXYJJ SKIN/TISSUE 10/15/2013 21938-UTMAVFM SKIN/TISSUE 01/18/2019 27035-NFWUIYU SKIN/TISSUE 02/01/2019 00338-RXSYHCZ SKIN/TISSUE 07/23/2016 91676-CRMFFZI SKIN/TISSUE 01/31/2017 75665-FAUNOBK SKIN/TISSUE 03/11/2024 83157 I&D ABSCESS- SIMPLE,SINGLE 011 77908-BGKS SKIN LESIONS, OVER 4 05/22/20 23 45405-QVBG SKIN LESIONS, OVER 4 02/14/20 23 41698-HESI SKIN LESIONS, 2 TO 4 10/28/20 47356-LWCG SKIN LESIONS, 2 TO 4 09/24/20 46842-QKVE SKIN LESIONS, 2 TO 4 04/22/20 71970-UDQX SKIN LESIONS, 2 TO 4 07/22/20 33850-PVCY SKIN LESIONS, 2 TO 4 06/11/20 59289-RGRJ SKIN LESIONS, 2 TO 4 07/01/20 24 45623-NQEP SKIN LESIONS, 2 TO 4 10/11/20 24 36938-EIPV SKIN LESIONS, 2 TO 4 09/01/20 23 61631-JMQN SKIN LESIONS, 2 TO 4 12/11/19 24 58850-AJSS SKIN LESIONS, 2 TO 4 03/11/20 24 27459-XDLE NAIL(S) 07/22/2022 53895-UVKJ NAIL(S) 04/22/2022 11489-ITUQ NAIL(S) 09/24/2021 12477-BJKN NAIL(S) 01/14/2022 87516-ITHY NAIL(S) 10/28/2022 F5077-ELXNYVDK DYSTROPHIC NAILS ANY # Y6330-RJOFTSUQ DYSTROPHIC NAILS ANY # M8028-IERUMSUV DYSTROPHIC NAILS ANY # L8442-TOTCZTKB DYSTROPHIC NAILS ANY # Z9954-VWUXMOBG DYSTROPHIC NAILS ANY # C8784-BDRCIMGI DYSTROPHIC NAILS ANY # A5848-YZBAZCMH DYSTROPHIC NAILS ANY # W7680-RGOYYUKU DYSTROPHIC NAILS ANY # 94639 - Tenotomy, open flexor 01/16/2018 Next Appt Details Provider Name:Julee Dickens , 05/30/2025 01:00:00 PM, [address] [facility], [place], [address], Insurance Providers Payer Name Payer Address Payer Phone Subscriber Number Group Number Insured Name Patient Relationship to Insured Coverage Start Date Coverage End Date Medicare [employer] [address] [place] [address] [id number] Gina Milan Self - patient is the insured [facility] [address] [place] [phone] [id number] Shyann Milanbeth Self - patient is the insured Medical (General) History Medical History History ICD Code chicken pox reflux osteoporosis neuropathy high blood pressure Cholesterol back, hip, knee pain Arthritis sleep apnea pre type II diabetes Carpal tunnel Surgical History Surgery Date(Month/Year) spinal stenosis surgery tonsillectomy 1971 [employer] w/K-Wire 2nd Left 08/23 Colonoscopy 04/03/2018 [facility] 2nd R SE: Sag Saw & Kwir e 11/18/2018 Hospitalization History Reason Date(Month/Year) [facility] Ul[facility] 08[facility]06[facility]18 [facility] lumbar fusion 04/14/2017
--- OUTSIDE RECORDS SUMMARY | 2025-03-22 11:52 | XMS_ITS ---
Author Organization [facility] Address [address] [place] [address] Care Team Providers Care Delivery Analyst Name Role Phone Yolanda Jack MD Primary Care Provider Unavaila apolinar Dickens Julee Unavailable [phone] REASON FOR VISIT r/s 02/21 Encounters Encounter Location Date Provider Diagnosis [address] [address] 02/17/2025 Julee Dickens Plan Of Treatment Next Appt Details Provider Name:Julee Knight Maninder , 05/30/2025 01:00:00 PM, [address] [place] [address], [phone], Progress Notes * Gina MCCULLOUGH MDOB:[birth year] (64 yo F)Acc No.[id number]:02/17/2025 Patient:?Gina MCCULLOUGH :1960???Age:64 Y???Sex:Female Address:[address], [address], [place], [address] * true * Date:? Generated for Printi ng/Faxing/eTransmitting on:?03/22/2025 11:51 AM EDT
--- OUTSIDE RECORDS SUMMARY | 2025-03-22 11:52 | XMS_ITS ---
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 Name Role Phone Yolanda Jack MD Primary Care Provider Unavaila ble Black Julee Unavailable [phone] Allergies Allergen (clinical drug ingredient) Drug/Non Drug [...] Active Encounters Encounter Location Date Provider Diagnosis [facility] [address] [address] 01/10/2025 Julee Dickens Plan Of Treatment Next Appt Details Provider Name:Julee Antonia Dickens , 05/30/2025 01:00:00 PM, [address] [place] [address], [id number], Progress Notes * Gina MCCULLOUGH MDOB:[birth year] (64 yo F)Acc No.[id number]:01/10/2025 Progress Note Patient:?Gina MCCULLOUGH Provider:?Julee Dickens DPM :1960???Age:64 Y???Sex:Female D ate:01/10/2025 Address:[address] [place] [address], [address], [facility] Pcp:Yolanda Jack MD Subjective: * Chief Complaints: [...]
--- NOTE | 2025-04-07 | ECG_ITS ---
Test Reason : preop Blood Pressure : */* mmHG Vent. Rate : 87 BPM Atrial Rate : 87 BPM P-R Int : 174 ms QRS Dur : 86 ms QT Int : 370 ms P-R-T Axes : -1 39 38 degrees QTcB Int : 445 ms Normal sinus rhythm with sinus arrhythmia Normal ECG When compared with ECG of 17-Oct-2022 13:38, T wave inversion no longer evident in Inferior leads Referred By: Melonie Alvarado Electronically Signed By: KALIA PRIETO MD
[2025-04-07 10:28] VITALS: BP 130/62; PULSE 77; RESP 18; O2SAT 94
[2025-04-07 12:15] LABS: Hematocrit 34.1 % (37.0-47.0); Hemoglobin 10.7 g/dl (12.0-16.0); Mean Corpuscular HGB Conc 31.4 g/dl (31.0-35.0); Mean Corpuscular Hemoglobin 26.7 pg (27.0-33.0); Mean Platelet Volume 10.9 fL (9.4-12.3); Platelet Count 291 X10*3/uL (160-400); Red Blood Count 4.01 X10*6/uL (4.20-5.50); Red Cell Distribution Width 16.2 % (11.0-16.0); White Blood Count 9.5 X10*3/uL (4.8-10.8)
[2025-04-07 13:12] LABS: Anion Gap 15 (12-20); Blood Urea Nitrogen 37 mg/dL (9-16); Calcium 9.7 mg/dL (8.4-10.2); Carbon Dioxide 27 mmol/L (22-29); Chloride 99 mmol/L (96-108); Estimated Glomerular Filt Rate > 60; Glucose Random 114 mg/dL (60-115); Potassium 4.5 mmol/L (3.3-5.1); Sodium 136 mmol/L (135-145)
[2025-04-14] VITALS (7 sets, daily range): BP systolic 107–140; BP diastolic 45–76; PULSE 72–86; RESP 16–20; TEMP 36.2–36.9; O2SAT 93–95; BMI 62.2
[2025-04-14 07:54] LABS: Glucose, Whole Blood 116 mg/dL (60-115)
--- NOTE | 2025-04-14 08:30 | PC.NURSE ---
ultrasound guided iv
[2025-04-14] MEDS: Lactated Ringers 1,000 ML 100 ML IVCONT (08:31)
--- NOTE | 2025-04-14 08:32 | MHC.SHP ---
Pre-Procedural Eval Section A - 24 Hr Update-Section A only Date of Service: 04/14/25 The patient is an INPATIENT: No Changes since office visit: Yes Patient answered all questions; No Cold of Flu in the past 2 weeks, No New Medical Problems and No Changes in Medication The patient has been examined within 24 hours of the surgical procedure. The History & Physical has been completed within 30 days and I have reviewed it.: Yes Section B - Complete if H&P > 30 days Chief Complaint: Non-pressure chronic ulcer of bilateral feet Allergies: Allergies Allergy/AdvReac Type Severity Reaction Status Date / Time Adhesive Bandages Allergy Unknown rash Verified 03/15/25 13:05 adhesive tape [TAPE,ADHESIVE] Allergy Unknown RASH Verified 03/15/25 13:05 amlodipine Allergy Unknown edema Verified 03/15/25 13:05 atenolol Allergy Unknown Bradycardia Verified 03/15/25 13:05 bisoprolol [From Zebeta] Allergy Unknown Diarrhea Verified 03/15/25 13:05 labetalol Allergy Unknown n/a Verified 03/15/25 13:05 latex [LATEX] Allergy Unknown RASH Verified 03/15/25 13:05 metformin AdvReac Intermediate Diarrhea Verified 03/15/25 13:05 semaglutide [From Ozempic] AdvReac Intermediate Diarrhea Verified 03/15/25 13:05 vicodin Allergy Unknown heart Uncoded 03/15/25 13:05 palpitation actos AdvReac Intermediate Abdominal Uncoded 03/15/25 13:05 Pain Plan Diagnosis/Plan: Unchanged I have reviewed the history and physical and performed a pertinent physical examination on my patient. No changes have occurred unless specified. Time Spent With Patient Time: Total time managing care of this patient today ____ minutes.
--- NOTE | 2025-04-14 08:40 | HO.ANESPROP2 ---
Documented by User: Melonie Alvarado NP 04/13/25 09:29 HPI - Anesthesia Eval Consult details Narrative: 64yo F for Left Skin Graft, Split Thickness from LT thigh to bilat. feet Unable to obtain weight d/t wheelchair bound - morbidly obese No recent illnes No CP/SOB, W/C bound. Transfer by stand and pivot. DM: Does not check POC at home, A1C 6.8% TONI: bipap QHS GERD: ppi controls Anesthesia Pre-Procedure Meds Is the patient on any of the following meds?: GLP1/DPP4 PMFSH Active Problems Active Problems: All Active Problems Chronic foot ulcer (Acute) Obesity, morbid, BMI 50 or higher (Acute) Severe obstructive sleep apnea (Acute) Anemia (Acute) Trigger thumb, left thumb (Acute) De Quervain's tenosynovitis, left (Acute) Carpal tunnel syndrome of left wrist (Acute) Carpal tunnel syndrome of right wrist (Acute) Hypertriglyceridemia (Acute) Annual physical exam (Acute) Left shoulder tendonitis (Acute) Left shoulder pain (Acute) Chest pain (Acute) Wheelchair dependent (Acute) Adjustment disorder, unspecified (Acute) DM type 2 (diabetes mellitus, type 2) (Acute) Mixed hyperlipidemia (Acute) Hypokalemia (Acute) Restless leg syndrome (Acute) TONI on CPAP (Acute) Osteomyelitis (Acute) Spinal stenosis (Acute) Urinary retention (Acute) Hyperglycemia (Acute) Morbid obesity (Acute) Foot callus (Acute) Obesity (Acute) Hypertension (Acute) Neuropathy (Acute) Edema (Acute) Past Medical History Medical History (Updated 04/07/25 @ 10:15 by Shayy Elias RN) Scoliosis Arthritis Diabetes GERD (gastroesophageal reflux disease) Numbness Elevated cholesterol Bowel incontinence Chronic indwelling Duncan catheter Osteomyelitis Bunion of right foot TONI (obstructive sleep apnea) Hyperglycemia Morbid obesity Foot callus Neuropathy Edema Urinary retention Plantar fasciitis Obesity Osteoarthritis Spinal stenosis Hypertension Family History Family History Father History of heart attack Mother HTN (hypertension) Stroke Brother Stomach cancer Brother History of heart attack HTN (hypertension) Diabetes mellitus Lung cancer Brother Bladder cancer Heart attack Family history of problems with anesthesia: No Surgical History Surgical History (Updated 04/07/25 @ 10:18 by Shayy Curt, RN) History of esophagogastroduodenoscopy (EGD) Hx of ligation of vein History of carpal tunnel surgery H/O foot surgery History of tonsillectomy H/O colonoscopy History of lumbar surgery History of Problems with Anesthesia: No Social History Social History Housing: House Are you a primary hearing care professional to a significant other at home: No Do you presently have visiting nurse or other home services: Yes ([employer]) Alcohol intake: never Patient Tobacco Use Status: Never used Tobacco e-Cigarette/Vaping Use: Never Used Second Hand Smoke Exposure: No Use of substances other than those prescribed or required for medical reasons: No Have you been hit, kicked, punched, or otherwise hurt by someone within the past year? If so, by whom?: No Are you DNR?: No Advance Directives: No Advance Directives Information Provided: Yes Advance Directives on File: No Patient : No : No service: No Current occupational status: disabled Current occupation: right hand dominant Cognitive needs: No Hearing needs: No Vision needs: Yes Meds Allergies Allergy/AdvReac Type Severity Reaction Status Date / Time Adhesive Bandages Allergy Unknown rash Verified 03/15/25 13:05 adhesive tape [TAPE,ADHESIVE] Allergy Unknown RASH Verified 03/15/25 13:05 amlodipine Allergy Unknown edema Verified 03/15/25 13:05 atenolol Allergy Unknown Bradycardia Verified 03/15/25 13:05 bisoprolol [From Zebeta] Allergy Unknown Diarrhea Verified 03/15/25 13:05 labetalol Allergy Unknown n/a Verified 03/15/25 13:05 latex [LATEX] Allergy Unknown RASH Verified 03/15/25 13:05 metformin AdvReac Intermediate Diarrhea Verified 03/15/25 13:05 semaglutide [From Ozempic] AdvReac Intermediate Diarrhea Verified 03/15/25 13:05 vicodin Allergy Unknown heart Uncoded 03/15/25 13:05 palpitation actos AdvReac Intermediate Abdominal Uncoded 03/15/25 13:05 Pain Home Medications ?Medication ?Instructions ?Recorded ?Confirmed ?Last Taken ?Type aspirin 81 mg tablet,delayed 81 mg PO DAILY 09/15/20 04/07/25 04/08/25 History release cholecalciferol (vitamin D3) 25 25 mcg PO DAILY 09/15/20 04/07/25 Unknown History mcg (1,000 unit) capsule magnesium oxide 500 mg capsule 500 mg PO DAILY 09/15/20 04/07/25 Unknown History omega 8-qvp-dlt-fish oil 1,000 mg 1 cap PO BID 09/15/20 04/07/25 04/13/25 History (120 mg-180 mg) capsule (Fish Oil) acetaminophen 650 mg 1,300 mg PO Q12H 01/01/22 04/07/25 Unknown History tablet,extended release multivitamin 1 tab PO DAILY 01/01/22 04/07/25 Unknown History omeprazole 20 mg capsule,delayed 20 mg PO DAILY 01/01/22 04/07/25 04/14/25 History release Lactobacillus acidophilus 1,000 mmu cells PO DAILY 01/03/25 04/07/25 Unknown History (Acidophilus capsule) rosuvastatin 10 mg tablet 10 mg PO DAILY 04/07/25 04/07/25 04/14/25 History terazosin 10 mg capsule 20 mg PO BEDTIME 04/07/25 04/07/25 Unknown History Exam Height,Weight and Vital Signs: Height 5 ft 1 in Last Vital Signs Pulse 77 04/07/25 10:28 Resp 18 04/07/25 10:28 BP 130/62 04/07/25 10:28 Pulse Ox 94 04/07/25 10:28 O2 Del Method Room Air 04/07/25 10:28 Pertinent Lab Results Pertinent Lab Results: Lab Results 04/07/25 Range/Units 11:22 WBC 9.5 (4.8-10.8) X10*3/uL RBC 4.01 L D (4.20-5.50) X10*6/uL Hgb 10.7 L D (12.0-16.0) g/dl Hct 34.1 L D (37.0-47.0) % MCV 85.0 (80.0-98.0) fL MCH 26.7 L (27.0-33.0) pg MCHC 31.4 (31.0-35.0) g/dl RDW 16.2 H (11.0-16.0) % Plt Count 291 D (160-400) X10*3/uL MPV 10.9 (9.4-12.3) fL Absolute Nucleated RBC 0.000 (0.0-0.012) X10*3/uL Nucleated RBC % (auto) 0.0 (0.0-0.2) /100WBC Sodium 136 (135-145) mmol/L Potassium 4.5 (3.3-5.1) mmol/L Chloride 99 (96-108) mmol/L Carbon Dioxide 27 (22-29) mmol/L Anion Gap 15 (12-20) BUN 37 H (9-16) mg/dL Creatinine 0.90 (0.5-1.4) mg/dL Estim Creat Clear Calc TNP Estimated GFR > 60 Random Glucose 114 (60-115) mg/dL Calcium 9.7 D (8.4-10.2) mg/dL Narrative Narrative: EKG 03/2025 Vent. Rate : 87 BPM Atrial Rate : 87 BPM P-R Int : 174 ms QRS Dur : 86 ms QT Int : 370 ms P-R-T Axes : -1 39 38 degrees QTcB Int : 445 ms Normal sinus rhythm with sinus arrhythmia Normal ECG When compared with ECG of 17-Oct-2022 13:38, T wave inversion no longer evident in Inferior leads ECHO 2022 Conclusions: - The left ventricular systolic function is normal. The calculated ejection fraction is 64% by biplane method. - There is moderately increased left ventricular wall thickness. - No obvious valvular pathology seen on this study. NM cardiolite stress test 2022 Impression: 1. Myocardial perfusion imaging study shows likely normal myocardial perfusion 2. Gated LVEF is 59% 3. Transient ischemic dilatation not present EKG is nondiagnostic for ischemia Airway Mallampati Class: III TM Dist: <=3cm Neck ROM: Full Loose/Missing/Broken Teeth: Yes (broken throughout, #9 implant, missing through - denies any loose teeth) Heart: RRR Lungs: CTAB Assessment and Plan Assessment Anesthesia Assessment: Anesthesia Plan Discussed and PAT Visit Final Anesthetic Review Family History of Problems with Anesthesia: No History of Problems with Anesthesia: No Documented by User: Julieta Guerrier DO 04/14/25 09:27 HPI - Anesthesia Eval Anesthesia Pre-Procedure Meds Is the patient on any of the following meds?: GLP1/DPP4 [facility] Past Medical History Medical History (Updated 04/07/25 @ 10:15 by Shayy Elias RN) Scoliosis Arthritis Diabetes GERD (gastroesophageal reflux disease) Numbness Elevated cholesterol Bowel incontinence Chronic indwelling Duncan catheter Osteomyelitis Bunion of right foot TONI (obstructive sleep apnea) Hyperglycemia Morbid obesity Foot callus Neuropathy Edema Urinary retention Plantar fasciitis Obesity Osteoarthritis Spinal stenosis Hypertension Family History Family History Father History of heart attack Mother HTN (hypertension) Stroke Brother Stomach cancer Brother History of heart attack HTN (hypertension) Diabetes mellitus Lung cancer Brother Bladder cancer Heart attack Family history of problems with anesthesia: No Surgical History Surgical History (Updated 04/07/25 @ 10:18 by Shayy Elias RN) History of esophagogastroduodenoscopy (EGD) Hx of ligation of vein History of carpal tunnel surgery H/O foot surgery History of tonsillectomy H/O colonoscopy History of lumbar surgery History of Problems with Anesthesia: No Social History Social History Housing: House Are you a primary hearing care professional to a significant other at home: No Do you presently have visiting nurse or other home services: Yes ([employer]) Alcohol intake: never Patient Tobacco Use Status: Never used Tobacco e-Cigarette/Vaping Use: Never Used Second Hand Smoke Exposure: No Use of substances other than those prescribed or required for medical reasons: No Have you been hit, kicked, punched, or otherwise hurt by someone within the past year? If so, by whom?: No Are you DNR?: No Advance Directives: No Advance Directives Information Provided: Yes Advance Directives on File: No Patient : No : No service: No Current occupational status: disabled Current occupation: right hand dominant Cognitive needs: No Hearing needs: No Vision needs: Yes Meds Allergies Allergy/AdvReac Type Severity Reaction Status Date / Time Adhesive Bandages Allergy Unknown rash Verified 03/15/25 13:05 adhesive tape [TAPE,ADHESIVE] Allergy Unknown RASH Verified 03/15/25 13:05 amlodipine Allergy Unknown edema Verified 03/15/25 13:05 atenolol Allergy Unknown Bradycardia Verified 03/15/25 13:05 bisoprolol [From Zebeta] Allergy Unknown Diarrhea Verified 03/15/25 13:05 labetalol Allergy Unknown n/a Verified 03/15/25 13:05 latex [LATEX] Allergy Unknown RASH Verified 03/15/25 13:05 metformin AdvReac Intermediate Diarrhea Verified 03/15/25 13:05 semaglutide [From Ozempic] AdvReac Intermediate Diarrhea Verified 03/15/25 13:05 vicodin Allergy Unknown heart Uncoded 03/15/25 13:05 palpitation actos AdvReac Intermediate Abdominal Uncoded 03/15/25 13:05 Pain Home Medications ?Medication ?Instructions ?Recorded ?Confirmed ?Last Taken ?Type aspirin 81 mg tablet,delayed 81 mg PO DAILY 09/15/20 04/07/25 04/08/25 History release cholecalciferol (vitamin D3) 25 25 mcg PO DAILY 09/15/20 04/07/25 Unknown History mcg (1,000 unit) capsule magnesium oxide 500 mg capsule 500 mg PO DAILY 09/15/20 04/07/25 Unknown History omega 9-vpg-otk-fish oil 1,000 mg 1 cap PO BID 09/15/20 04/07/25 04/13/25 History (120 mg-180 mg) capsule (Fish Oil) acetaminophen 650 mg 1,300 mg PO Q12H 01/01/22 04/07/25 Unknown History tablet,extended release multivitamin 1 tab PO DAILY 01/01/22 04/07/25 Unknown History omeprazole 20 mg capsule,delayed 20 mg PO DAILY 01/01/22 04/07/25 04/14/25 History release Lactobacillus acidophilus 1,000 mmu cells PO DAILY 01/03/25 04/07/25 Unknown History (Acidophilus capsule) rosuvastatin 10 mg tablet 10 mg PO DAILY 04/07/25 04/07/25 04/14/25 History terazosin 10 mg capsule 20 mg PO BEDTIME 04/07/25 04/07/25 Unknown History Exam Exam Date and Time: 04/14/25 0840 Height,Weight and Vital Signs: Height 5 ft 1 in Last Vital Signs Pulse 77 04/07/25 10:28 Resp 18 04/07/25 10:28 BP 130/62 04/07/25 10:28 Pulse Ox 94 04/07/25 10:28 O2 Del Method Room Air 04/07/25 10:28 Vital Signs Pulse Rate 77 04/07/25 10:28 Respiratory Rate 18 04/07/25 10:28 Blood Pressure 130/62 04/07/25 10:28 Pulse Oximetry 94 04/07/25 10:28 Oxygen Delivery Method Room Air 04/07/25 10:28 Temperature 98.5 F 04/14/25 07:58 Pulse Rate 80 04/14/25 07:58 Respiratory Rate 20 04/14/25 07:58 Blood Pressure 140/56 H 04/14/25 07:58 Pulse Oximetry 94 04/14/25 07:58 Oxygen Delivery Method Room Air 04/14/25 07:58 Airway Mallampati Class: I TM Dist: <=3cm Neck ROM: Full Loose/Missing/Broken Teeth: Yes (broken throughout, #9 implant, missing through - denies any loose teeth) Heart: S1S2 Assessment and Plan Assessment Anesthesia Assessment: Anesthesia Plan Discussed and Chart Reviewed Final Anesthetic Review Family History of Problems with Anesthesia: No History of Problems with Anesthesia: No NPO: Yes ASA Class: III Final Preanesthetic Review: No Changes in Pt Med Stat, Meds/Allgs Chart Reviewed, Consent Obtained/Reviewed and Anes Risks/Benef Reviewed Patient Risk: Intermediate Procedure Risk: Low Anesthetic Plan Anesthetic Plan: GA and Agree w/ Assess. and Plan Disposition: Standard PACU
--- NOTE | 2025-04-14 10:19 | P.OP_ITS ---
Operative Note Operative Note Date of Service: 04/14/25 Narrative: Preoperative diagnosis: Nonhealing ulcer of bilateral feet Postoperative diagnosis: Same Procedure: Split-thickness skin graft from left thigh to bilateral feet Surgeon: Quinton Lopez MD Account Installer: Marilin Wing PA-C; GRZEGORZ Erwin Anesthesia: General LMA Indications for procedure: 64-year-old female patient with a history of spinal stenosis and nonambulatory. Patient spends long periods of time in a wheelchair. She presents today for skin grafting to bilateral feet which have been healing nicely with wound care treatment. Operative findings: The patient found to have an excellent granulated base. Right foot ulcer measures approximately 2 x 4 cm. Left foot has 2 ulcers each measuring approximately 2 cm in diameter. Specimen: None Estimated blood loss: 5 mL Complications: None Procedure details: Patient was brought to the OR and placed in a supine position. After administering general anesthesia the patient's bilateral feet were prepped with Betadine and the left thigh was prepped with ChloraPrep. These were draped in a sterile fashion. A surgical time-out was called the consent confirmed. Patient received preoperative antibiotics and Venodyne dyne boots were withheld due to the site of surgery. Beginning at the bilateral feet ulcers, a curette was used to freshen up the granulation tissue and remove any nonviable tissue. Attention was then directed to the left anterior thigh. This was coated with mineral oil. A skin graft measuring approximately 3 by 5 cm was obtained with a depth of 0.15 inch thickness. This was then placed in the mesher at a 1-3 mesh. The mesh was then applied to all 3 ulcers and secured circumferentially using a 4-0 Polysorb suture. In the right great toe the wound was covered with Adaptic followed by a black sponge. This was then covered with op-site and an outpatient wound VAC applied. Good suction was noted and the device was set at 125 mmHg suctioned. No air leak could be identified. The left foot was dressed with Adaptic followed by fluff gauze, ABD, Kerlix and Farhad bandage. The patient tolerated the procedure well. Sponge, instrument, and needle counts were reported as correct. The patient was transferred to PACU in stable condition.
== END 2025-04-14 13:31 | disposition home or self-care (01) ==
PROVIDERS: Nurse Practitioner; PCP Internal Medicine; Visit Provider Surgery
PROC: (CPT 15120; principal; 2025-04-14 09:30)
DX: L97.522 Non-pressure chronic ulcer of other part of left foot with fat layer exposed (principal); L97.512 Non-pressure chronic ulcer of other part of right foot with fat layer exposed; M21.611 Bunion of right foot; Z87.2 Personal history of diseases of the skin and subcutaneous tissue; M86.9 Osteomyelitis, unspecified; I87.2 Venous insufficiency (chronic) (peripheral); M72.2 Plantar fascial fibromatosis; L84 Corns and callosities; M48.00 Spinal stenosis, site unspecified; I10 Essential (primary) hypertension; R73.9 Hyperglycemia, unspecified; G62.9 Polyneuropathy, unspecified; G47.33 Obstructive sleep apnea (adult) (pediatric); E66.01 Morbid (severe) obesity due to excess calories; Z99.3 Dependence on wheelchair; Z79.82 Long term (current) use of aspirin; Z79.85 Long-term (current) use of injectable non-insulin antidiabetic drugs; Z79.899 Other long term (current) drug therapy; L23.1 Allergic contact dermatitis due to adhesives; Z88.5 Allergy status to narcotic agent; Z88.8 Allergy status to other drugs, medicaments and biological substances; Z91.040 Latex allergy status; Z98.890 Other specified postprocedural states
CPT/HCPCS: 15120; 15100; 36415; 80048; 82947; 85027; 93005; J0131; J0330; J0690; J1100; J2003; J2004; J2405; J2704; J3010

== ENCOUNTER → 2025-04-14 07:21 | Outpatient (BNV) | payer MEDICARE, OTHER, SELFPAY | PROVIDERS: PCP Internal Medicine; Visit Provider Surgery | DX: L97.519 Non-pressure chronic ulcer of other part of right foot with unspecified severity (principal); L97.529 Non-pressure chronic ulcer of other part of left foot with unspecified severity | CPT/HCPCS: 15002; 15120 ==

== ENCOUNTER → 2025-04-18 10:25 | Outpatient (BNVA) | payer MEDICARE, OTHER, SELFPAY | PROVIDERS: PCP Internal Medicine; Visit Provider Surgery | DX: L97.502 Non-pressure chronic ulcer of other part of unspecified foot with fat layer exposed (principal) | CPT/HCPCS: 99211 ==

== ENCOUNTER → 2025-04-22 10:14 | Outpatient (BNVA) | payer MEDICARE, OTHER, SELFPAY | PROVIDERS: PCP Internal Medicine; Visit Provider Surgery | DX: Z48.00 Encounter for change or removal of nonsurgical wound dressing (principal) | CPT/HCPCS: 99211 ==

== ENCOUNTER 2025-04-26 09:54 | Outpatient (REF) | payer MEDICARE, OTHER, SELFPAY ==
[2025-04-26 10:42] LABS: Baso%MD 0.3 %; Hematocrit 32.5 % (37.0-47.0); Hemoglobin 10.5 g/dl (12.0-16.0); IG%MD 0.6 %; Lymph%MD 24.6 %; Mean Corpuscular HGB Conc 32.3 g/dl (31.0-35.0); Mean Corpuscular Hemoglobin 27.1 pg (27.0-33.0); Mean Platelet Volume 10.5 fL (9.4-12.3); Mono%MD 9.6 %; Neut%MD 60.9 %; Platelet Count 265 X10*3/uL (160-400); Red Blood Count 3.87 X10*6/uL (4.20-5.50); Red Cell Distribution Width 16.3 % (11.0-16.0); White Blood Count 9.6 X10*3/uL (4.8-10.8)
[2025-04-26 10:52] LABS: Estimated Average Glucose 120 mg/dL; Hemoglobin A1c % 5.8 % (<6.0)
--- OUTSIDE RECORDS SUMMARY | 2025-04-26 11:10 | XMS_ITS ---
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 Name Role Phone Yolanda Jack MD Primary Care Provider Unavaila apolinar Maninder Julee Unavailable [phone] Encounters Encounter Location Date Provider Diagnosis [address] [address] 02/21/2025 Julee Dickens Plan Of Treatment Next Appt Details Provider Name:Julee Dickens , 05/30/2025 01:00:00 PM, [address] [place] [address], [phone], Progress Notes * Gina MCCULLOUGH MDOB:[birth year] (64 yo F)Acc No.[id number]:02/21/2025 Progress Note Patient:?Gina MCCULLOUGH Provider:?Julee Dickens DPM :1960???Age:64 Y???Sex:Female D ate:02/21/2025 Address:[address], [address], [place] Pcp:Yolanda Jack MD Subjective: * Chief Complaints: [...] Dickens DPM Date:?2024 Generated for Wilder ibarra/Cuong/Gabriella on:?04/26/2025 11:09 AM EDT
[2025-04-26 11:32] LABS: Alanine Aminotransferase 24 U/L (0-31); Albumin Level 3.8 g/dL (3.5-5.0); Alkaline Phosphatase 102 U/L (39-117); Anion Gap 14 (12-20); Aspartate Amino Transferase 37 U/L (5-31); Bilirubin Total 0.3 mg/dL (0.0-1.0); Blood Urea Nitrogen 27 mg/dL (9-16); Calcium 9.2 mg/dL (8.4-10.2); Carbon Dioxide 26 mmol/L (22-29); Chloride 104 mmol/L (96-108); Cholesterol 139 mg/dL (<200); Estimated Glomerular Filt Rate > 60; Glucose Fasting 98 mg/dL (60-99); HDL Cholesterol 26 mg/dL (>40); LDL Cholesterol Calculated 62 mg/dL (<100); Potassium 5.3 mmol/L (3.3-5.1); Sodium 139 mmol/L (135-145); Total Protein 7.5 g/dL (6.5-8.0); Triglycerides 257 mg/dL (<150)
[2025-04-26 11:33] LABS: Atypical Lymph Absolute Manual 0.2 x10*3/uL; Atypical Lymphs Percent Manual 2 % (0-6); Band Neutrophils Percent 2 % (3-5); Basophils Abs Manual 0.2 X10*3/uL (0.0-0.2); Basophils Percent Manual 2 % (0-2); Eosinophils Absolute Manual 0.6 X10*3/uL (0.0-0.4); Eosinophils Percent Manual 6 % (0-4); Lymphocytes Absolute Manual 2.4 X10*3/uL (1.2-4.9); Lymphocytes Percent Manual 25 % (20-40); Monocytes Absolute Manual 0.6 X10*3/uL (0.1-1.2); Monocytes Percent Manual 6 % (2-11); Neutrophils Absolute Manual 5.7 X10*3/uL (2.0-8.3); Neutrophils Percent Manual 57 % (45-73)
[2025-04-26 11:34] LABS: Platelet Estimate NORMAL (NORMAL); Platelet Morphology Comment NORMAL; RBC Morphology NORMAL
[2025-04-26 12:32] LABS: Creatinine Urine 71.35 mg/dL; Microalbum/Creatinine Ratio Ur 22.4 ug/mg cr (<30)
== END 2025-04-26 09:55 | disposition home or self-care (01) ==
LOC: HO.LAB 09:54
PROVIDERS: PCP Internal Medicine; Visit Provider Internal Medicine
DX: D64.9 Anemia, unspecified (principal); E11.9 Type 2 diabetes mellitus without complications; E66.01 Morbid (severe) obesity due to excess calories; I10 Essential (primary) hypertension
CPT/HCPCS: 36415; 80053; 80061; 82043; 82570; 83036; 85007; 85027; 99212

== ENCOUNTER 2025-04-26 11:12 | Outpatient (AMB) | payer MEDICARE, OTHER, MEDICAID, SELFPAY ==
--- NOTE | 2025-04-26 11:26 | A.OFFVIS_ITS ---
Vital Signs 04/26/25 11:27 Height 5 ft 1 in BMI Reason not done Palliative Care Patient BP 130/62 Blood Pressure Location Lt brachial Position Sitting Intake Visit Reasons: S/P skin graft from Lt thigh to bilat. feet Intake Note: Patient is seen in office for post op assessment post Split-thickness skin graft from left thigh to bilateral feet. Pt c/o; has VNA coming in every other day, no longer on wound vac, per nurses looking okay surgery:04/14/25 Access Clinician Required: No Accompanied by: Self / Same As Patient Allergies Adhesive Bandages Allergy (Unknown, Verified 04/26/25 11:27) rash adhesive tape [TAPE,ADHESIVE] Allergy (Unknown, Verified 04/26/25 11:27) RASH amlodipine Allergy (Unknown, Verified 04/26/25 11:27) edema atenolol Allergy (Unknown, Verified 04/26/25 11:27) Bradycardia bisoprolol [From Zebeta] Allergy (Unknown, Verified 04/26/25 11:27) Diarrhea labetalol Allergy (Unknown, Verified 04/26/25 11:27) n/a latex [LATEX] Allergy (Unknown, Verified 04/26/25 11:27) RASH metformin Adverse Reaction (Intermediate, Verified 04/26/25 11:27) Diarrhea semaglutide [From Ozempic] Adverse Reaction (Intermediate, Verified 04/26/25 11:27) Diarrhea vicodin Allergy (Unknown, Uncoded 04/26/25 11:27) heart palpitation actos Adverse Reaction (Intermediate, Uncoded 04/26/25 11:27) Abdominal Pain HPI Comments Details: Patient returns today for wound check following skin graft to bilateral toes. She has some soreness from the donor site in the left thigh but otherwise feels stable. She continues with visiting nurses for dressing changes. [facility] Medical History Scoliosis Arthritis Diabetes GERD (gastroesophageal reflux disease) Numbness Elevated cholesterol Bowel incontinence Chronic indwelling Duncan catheter Osteomyelitis Bunion of right foot TONI (obstructive sleep apnea) Hyperglycemia Morbid obesity Foot callus Neuropathy Edema Urinary retention Plantar fasciitis Obesity Osteoarthritis Spinal stenosis Hypertension Surgical History Hx of skin graft (04/14/25) History of esophagogastroduodenoscopy (EGD) Hx of ligation of vein History of carpal tunnel surgery H/O foot surgery History of tonsillectomy H/O colonoscopy History of lumbar surgery Family History Father History of heart attack Mother HTN (hypertension) Stroke Brother Stomach cancer Brother History of heart attack HTN (hypertension) Diabetes mellitus Lung cancer Brother Bladder cancer Heart attack Social History Housing: House Are you a primary critical care paramedic to a significant other at home: No Do you presently have visiting nurse or other home services: Yes ([employer]) Alcohol intake: never Patient Tobacco Use Status: Never used Tobacco e-Cigarette/Vaping Use: Never Used Second Hand Smoke Exposure: No service: No Current occupational status: disabled Current occupation: right hand dominant Cognitive needs: No Hearing needs: No Vision needs: Yes Physical Exam Vital Signs: Last Vital Signs BP 130/62 04/26/25 11:27 Const General: no acute distress Nutritional Appearance: well nourished Orientation/consciousness: patient oriented x3 Neuro General: patient oriented x3 Extrem Other: Donor site is clean and intact. Clean dressings applied. Bilateral toe dressings changed. Right toe has good take of the skin graft. Left toe has some sloughing of the graft but generally the wounds remain clean. Both feet were dressed with Xeroform followed by gauze Kerlix and Farhad bandage. Assessment & Plan Assessment & Plan (1) Chronic foot ulcer: Comment: Bilateral Code(s): L97.509 - Non-pressure chronic ulcer of other part of unspecified foot with unspecified severity Category: Medical Qualifiers: Laterality: unspecified laterality Non-pressure ulcer stage: with fat layer exposed Qualified Code(s): L97.502 - Non-pressure chronic ulcer of other part of unspecified foot with fat layer exposed Plan Continue local wound care, VNA and follow up in 1 week Coding Level of Care Code Global (95624) Diagnoses Chronic foot ulcer with fat layer exposed, unspecified laterality L97.502 Laterality: unspecified laterality Non-pressure ulcer stage: with fat layer exposed
[2025-04-26 11:27] VITALS: BP 130/62
== END 2025-04-26 11:51 | disposition home or self-care (01) ==
LOC: HO.HGS 11:13
PROVIDERS: PCP Internal Medicine; Visit Provider Surgery
DX: L97.502 Non-pressure chronic ulcer of other part of unspecified foot with fat layer exposed (principal)
CPT/HCPCS: 99024

== ENCOUNTER 2025-05-03 10:42 | Outpatient (AMB) | payer MEDICARE, OTHER, SELFPAY ==
--- OUTSIDE RECORDS SUMMARY | 2025-02-21 11:15 | XMS_ITS ---
Author Organization [facility] Address [address] [place] [address] Care Team Providers Care Multimedia Educational Specialist Name Role Phone Yolanda Jack MD Primary Care Provider Unavaila apolinar ManinderJulee Unavailable [phone] Encounters Encounter Location Date Provider Diagnosis [address] [address] 02/21/2025 Julee Maninder Plan Of Treatment Next Appt Details Provider Name:Julee Dickens , 05/30/2025 01:00:00 PM, [address] [place] [address], [address], Progress Notes * Gina MCCULLOUGH MDOB:[birth year] (64 yo F)Acc No.[id number]:02/21/2025 Progress Note Patient: Nic Gina BARBOSA Provider: Vipul Dickens DPM :1960 A ge:64 Y S ex:Female Date:02/21/2025 Address:[address], [address], [id number] Pcp:Yolanda Jack MD Subjective: * Chief Complaints: [...] 02/21/2025 Generated for Wilder ibarra/Cuong/Gabriella on: 0 05/03/2025 12:02 PM EDT
--- NOTE | 2025-05-03 10:43 | MHC.OFFVIS ---
Vital Signs 05/03/25 10:50 Height 5 ft 1 in BMI Reason not done Palliative Care Patient BP 128/62 Blood Pressure Location Lt brachial Position Sitting Intake Visit Reasons: 1wk S/P skin graft from Lt thigh to bilat. feet Intake Note: Patient is seen in office for one week follow up visit, post skin graft from left thigh to bilateral feet. Pt c/o; admits to healing, still has nurse coming in every other day Statistician Mathematical Required: No Accompanied by: Self / Same As Patient Allergies Adhesive Bandages Allergy (Unknown, Verified 05/03/25 10:43) rash adhesive tape (TAPE,ADHESIVE) Allergy (Unknown, Verified 05/03/25 10:43) RASH amlodipine Allergy (Unknown, Verified 05/03/25 10:43) edema atenolol Allergy (Unknown, Verified 05/03/25 10:43) Bradycardia bisoprolol (From Zebeta) Allergy (Unknown, Verified 05/03/25 10:43) Diarrhea labetalol Allergy (Unknown, Verified 05/03/25 10:43) n/a latex (LATEX) Allergy (Unknown, Verified 05/03/25 10:43) RASH metformin Adverse Reaction (Intermediate, Verified 05/03/25 10:43) Diarrhea semaglutide (From Ozempic) Adverse Reaction (Intermediate, Verified 05/03/25 10:43) Diarrhea vicodin Allergy (Unknown, Uncoded 05/03/25 10:43) heart palpitation actos Adverse Reaction (Intermediate, Uncoded 05/03/25 10:43) Abdominal Pain HPI Comments Details: Patient returns today for wound check following skin graft to bilateral toes. She has some soreness from the donor site in the left thigh but otherwise feels stable. She continues with visiting nurses for dressing changes. [facility] Medical History Scoliosis Arthritis Diabetes GERD (gastroesophageal reflux disease) Numbness Elevated cholesterol Bowel incontinence Chronic indwelling Duncan catheter Osteomyelitis Bunion of right foot TONI (obstructive sleep apnea) Hyperglycemia Morbid obesity Foot callus Neuropathy Edema Urinary retention Plantar fasciitis Obesity Osteoarthritis Spinal stenosis Hypertension Surgical History Hx of skin graft (04/14/25) History of esophagogastroduodenoscopy (EGD) Hx of ligation of vein History of carpal tunnel surgery H/O foot surgery History of tonsillectomy H/O colonoscopy History of lumbar surgery Family History Father History of heart attack Mother HTN (hypertension) Stroke Brother Stomach cancer Brother History of heart attack HTN (hypertension) Diabetes mellitus Lung cancer Brother Bladder cancer Heart attack Social History Housing: House Are you a primary family day care provider to a significant other at home: No Do you presently have visiting nurse or other home services: 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 Clean dressings applied. Bilateral toe dressings changed. Right toe has good take of the skin graft. Left toe has some sloughing of the graft but generally the wounds remain clean. Both feet were dressed with Xeroform followed by gauze Kerlix and Farhad bandage. Assessment & Plan Assessment & Plan (1) Chronic foot ulcer: Comment: Bilateral Code(s): L97.509 - Non-pressure chronic ulcer of other part of unspecified foot with unspecified severity Category: Medical Qualifiers: Laterality: unspecified laterality Non-pressure ulcer stage: with fat layer exposed Qualified Code(s): L97.502 - Non-pressure chronic ulcer of other part of unspecified foot with fat layer exposed Plan Continue local wound care, VNA and follow up in 1 week Coding Level of Care Code Global (48132) Diagnoses Chronic foot ulcer with fat layer exposed, unspecified laterality L97.502 Laterality: unspecified laterality Non-pressure ulcer stage: with fat layer exposed
[2025-05-03 10:50] VITALS: BP 128/62
== END 2025-05-03 11:14 | disposition home or self-care (01) ==
LOC: HO.HGS 10:44
PROVIDERS: PCP Internal Medicine; Visit Provider Surgery
DX: L97.502 Non-pressure chronic ulcer of other part of unspecified foot with fat layer exposed (principal)
CPT/HCPCS: 99024

== ENCOUNTER → 2025-05-03 10:42 | Outpatient (BNVA) | payer MEDICARE, OTHER, SELFPAY | PROVIDERS: PCP Internal Medicine; Visit Provider Surgery | DX: E11.621 Type 2 diabetes mellitus with foot ulcer (principal); L97.522 Non-pressure chronic ulcer of other part of left foot with fat layer exposed; L97.512 Non-pressure chronic ulcer of other part of right foot with fat layer exposed | CPT/HCPCS: 99212 ==

== ENCOUNTER 2025-05-04 09:46 | Outpatient (AMB) | payer MEDICARE, OTHER, SELFPAY ==
--- OUTSIDE RECORDS SUMMARY | 2025-02-21 11:15 | XMS_ITS ---
Author Organization [facility] Address [address] [place] [address] Care Team Providers Care Adjunct Psychology Faculty Member Name Role Phone Yolanda Jack MD Primary Care Provider Unavaila apolinar ManinderJulee Unavailable [phone] Encounters Encounter Location Date Provider Diagnosis [address] [address] 02/21/2025 Julee Maninder Plan Of Treatment Next Appt Details Provider Name:Julee Dickens , 05/30/2025 01:00:00 PM, [address] [place] [address], [phone], Progress Notes * Gina MCCULLOUGH MDOB:[birth year] (64 yo F)Acc No.[id number]:02/21/2025 Progress Note Patient: Nic Gina BARBOSA Provider: Vipul Dickens DPM :1960 A ge:64 Y S ex:Female Date:02/21/2025 Address:[address], [id number] Pcp:Yolanda Jack MD Subjective: * Chief Complaints: [...] 02/21/2025 Generated for Wilder ibarra/Cuong/Gabriella on: 0 05/04/2025 11:07 AM EDT
[2025-05-04 09:50] VITALS: BP 118/70; PULSE 75; RESP 18; TEMP 36.8; O2SAT 96
--- NOTE | 2025-05-04 09:50 | MHC.PC.OV ---
Vital Signs 05/04/25 09:50 Height 5 ft 1 in BMI Reason not done Palliative Care Patient BP 118/70 Blood Pressure Location Rt radial Position Sitting Respiration 18 Pulse 75 Pulse Source Pulse Oximeter Temp 98.3 F Temp Source Oral Pulse Oximetry (%) 96 Oxygen Delivery Method Room Air Intake Visit Reasons: 3m f/u Intake Note: Pt is here today for 3 months follow up visit. Allergies Adhesive Bandages Allergy (Unknown, Verified 05/04/25 09:52) rash adhesive tape (TAPE,ADHESIVE) Allergy (Unknown, Verified 05/04/25 09:52) RASH amlodipine Allergy (Unknown, Verified 05/04/25 09:52) edema atenolol Allergy (Unknown, Verified 05/04/25 09:52) Bradycardia bisoprolol (From Zebeta) Allergy (Unknown, Verified 05/04/25 09:52) Diarrhea labetalol Allergy (Unknown, Verified 05/04/25 09:52) n/a latex (LATEX) Allergy (Unknown, Verified 05/04/25 09:52) RASH metformin Adverse Reaction (Intermediate, Verified 05/04/25 09:52) Diarrhea semaglutide (From Ozempic) Adverse Reaction (Intermediate, Verified 05/04/25 09:52) Diarrhea vicodin Allergy (Unknown, Uncoded 05/04/25 09:52) heart palpitation actos Adverse Reaction (Intermediate, Uncoded 05/04/25 09:52) Abdominal Pain Medication List - Last Reconciled 05/04/25 by Yolanda Jack MD acetaminophen ER 1,300 mg PO Q12H aspirin 81 mg PO DAILY carvedilol 6.25 mg PO BID catheter (Bardex All-Silicone Duncan Catheter) As directed celecoxib 200 mg PO BID cholecalciferol (vitamin D3) 25 mcg PO DAILY furosemide 40 mg PO DAILY gabapentin 900 mg (3 x 300 mg) PO BEDTIME hydralazine 50 mg PO BID irbesartan 300 mg PO DAILY Lactobacillus acidophilus (Acidophilus capsule) 1,000 mmu cells PO DAILY magnesium oxide 500 mg PO DAILY Mounjaro (tirzepatide) 5 mg (0.5 mL) subcut QWEEK NS multivitamin 1 tab PO DAILY nystatin (Nystop) 1 appl topical BID omega [id number]-ewc-byf-fish oil 1,000 (120-180) mg (Fish Oil) 1 cap PO BID omeprazole 20 mg PO DAILY pregabalin 150 mg PO BID rosuvastatin 10 mg PO DAILY spironolactone 25 mg PO DAILY terazosin 20 mg PO BEDTIME Tobacco use date assessed: 05/04/25 Dental Screening Dental Screen Date: 05/04/25 Did you have a dental visit in the last 12 months?: Yes Did you have a dental problem in the last 6 months where you did not have access to dental care?: No Was dental information given to patient?: Patient has dentist HPI 3m f/u HPI Details Patient presents for the follow-up on hypertension, hyperlipidemia morbid obesity, type 2 diabetes. Patient has been taking Mounjaro for 3 months and noticed improvement in her blood glucose readings and decreased appetite. She does not want to check her weight today. She is established with Wound Clinic for chronic lower extremities ulcers. [facility] Medical History Scoliosis Arthritis Diabetes GERD (gastroesophageal reflux disease) Numbness Elevated cholesterol Bowel incontinence Chronic indwelling Duncan catheter Osteomyelitis Bunion of right foot TONI (obstructive sleep apnea) Hyperglycemia Morbid obesity Foot callus Neuropathy Edema Urinary retention Plantar fasciitis Obesity Osteoarthritis Spinal stenosis Hypertension Surgical History Hx of skin graft (04/14/25) History of esophagogastroduodenoscopy (EGD) Hx of ligation of vein History of carpal tunnel surgery H/O foot surgery History of tonsillectomy H/O colonoscopy History of lumbar surgery Family History Father History of heart attack Mother HTN (hypertension) Stroke Brother Stomach cancer Brother History of heart attack HTN (hypertension) Diabetes mellitus Lung cancer Brother Bladder cancer Heart attack Social History Housing: House Are you a primary healthcare management to a significant other at home: No Do you presently have visiting nurse 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) Alcohol intake: never Patient Tobacco Use Status: Never used Tobacco e-Cigarette/Vaping Use: Never Used Second Hand Smoke Exposure: No service: No Current occupational status: disabled Current occupation: right hand dominant Cognitive needs: No Hearing needs: No Vision needs: Yes Questionnaire Thrive Questionnaire Date Thrive assessed: 01/22/25 I am a: Patient What is your living situation today?: I have a steady place to live Within the past 12 months, did the food you bought not last and you didn't have the money to get more?: Never true Within the past 12 months, did you worry whether your food would run out before you got money to buy more?: Never true Do you have trouble paying for medicines?: No Do you have trouble getting transportation to medical appointments?: No Do you have trouble paying your heating and electricity bill?: No Do you have trouble taking care of your child, family member or friend?: No Do you have trouble with day-to-day activities such as bathing, preparing meals, shopping, managing finances, etc.?: No Are you currently unemployed and looking for a job?: No Are you interested in more education?: No Please select the resources that you would like help with: None Currently or been in a relationship where the following occur: No concerns reported THRIVE Score: 0 AUDIT C Alcohol Use Questionnaire (AUDIT-C) 1. How often do you have a drink containing alcohol?: Monthly or less 2. How many drinks containing alcohol do you have on a typical day when you are drinking?: 1 or 2 3. How often do you have six or more drinks on one occasion?: Never Total Score: 1 GIANNA-7 AMB Questionnaire GIANNA-7 Date GIANNA - 7 assessed: 01/31/25 Source: Developed by Drs. Renan Amor, Yoselin Haines, Arnulfo Manzanares and colleagues, with an educational delia from [employer]. Review of Systems Const All systems reviewed & are unremarkable except as noted in HPI and below Eyes Reports no additional complaints ENT Reports no additional complaints Card Reports no additional complaints Resp Reports no additional complaints GI Reports no additional complaints Reports no additional complaints Musc Reports no additional complaints Physical exam (Primary Care) Vital Signs: Last Vital Signs Temp 98.3 F 05/04/25 09:50 Pulse 75 05/04/25 09:50 Resp 18 05/04/25 09:50 BP 118/70 05/04/25 09:50 Pulse Ox 96 05/04/25 09:50 Oxygen Delivery Method Room Air 05/04/25 09:50 Tobacco/Smoking Status: Tobacco use Status Tobacco use date assessed 05/04/25 05/04/25 10:00 Patient Tobacco Use Status Never used Tobacco 05/04/25 09:51 e-Cigarette/Vaping Use Never Used 05/04/25 09:51 Thrive Assessment: Date of Thrive Assessment Date Thrive assessed 01/22/25 05/04/25 09:51 Currently or been in a relationship where the following occur: No concerns reported Const General: no acute distress HENMT Head: Yes normal to inspection Eyes General: appearance normal, both eyes and all related structures Neck Neck: Yes supple Resp Effort & Inspection: normal respiratory effort Auscultation: clear to auscultation bilaterally Cardio Rhythm: regular rhythm Heart sounds: S1 normal heart sound present and S2 normal heart sound present GI Inspection: Yes normal to inspection Extrem Other: 4+ nonpitting lower extremities edema Coding Level of Care Code Est Pt Level 4 (48642) Diagnoses DM type 2 (diabetes mellitus, type 2) E11.9 Morbid obesity E66.01 Hypertension I10 Assessment & Plan Assessment & Plan (1) DM type 2 (diabetes mellitus, type 2): Comment: diet controlled, intolerant to Ozempic (diarrhea) , A1C 5.4 10/02 Code(s): E11.9 - Type 2 diabetes mellitus without complications Category: Medical Plan: A1c is down to 5.8 from 6.8, continue ADA diet and Mounjaro. Patient has 2 month supply of 5 mg of Mounjaro and will call in 2 months if she decide to increase the dose. Continue ADA diet decrease caloric intake and weight loss discussed with the pt (2) Morbid obesity: Code(s): E66.01 - Morbid (severe) obesity due to excess calories Category: Medical Plan: Decreasing caloric intake increasing physical activity weight loss discussed with the pt (3) Hypertension: Code(s): I10 - Essential (primary) hypertension Category: Medical Plan: Continue current medications Orders: Orders Complete Blood Count Auto Diff 6 Months E11.9 - Type 2 diabetes mellitus without complications, E66.01 - Morbid (severe) obesity due to excess calories, I10 - Essential (primary) hypertension Microalbumin, Random (w Creat) 6 Months E11.9 - Type 2 diabetes mellitus without complications, E66.01 - Morbid (severe) obesity due to excess calories, I10 - Essential (primary) hypertension Comprehensive [place]. Panel Fast 6 Months E11.9 - Type 2 diabetes mellitus without complications, E66.01 - Morbid (severe) obesity due to excess calories, I10 - Essential (primary) hypertension Hemoglobin A1c 6 Months E11.9 - Type 2 diabetes mellitus without complications, E66.01 - Morbid (severe) obesity due to excess calories, I10 - Essential (primary) hypertension Lipid Panel 6 Months E11.9 - Type 2 diabetes mellitus without complications, E66.01 - Morbid (severe) obesity due to excess calories, I10 - Essential (primary) hypertension
== END 2025-05-04 13:47 | disposition home or self-care (01) ==
LOC: HO.HMCC 09:47
PROVIDERS: PCP Internal Medicine; Visit Provider Internal Medicine
DX: E11.9 Type 2 diabetes mellitus without complications (principal); E66.01 Morbid (severe) obesity due to excess calories; I10 Essential (primary) hypertension

== ENCOUNTER → 2025-05-04 09:46 | Outpatient (BNVA) | payer MEDICARE, OTHER, SELFPAY | PROVIDERS: PCP Internal Medicine; Visit Provider Internal Medicine | DX: E11.9 Type 2 diabetes mellitus without complications (principal); I10 Essential (primary) hypertension; E66.01 Morbid (severe) obesity due to excess calories; Z71.3 Dietary counseling and surveillance | CPT/HCPCS: 99212 ==

== ENCOUNTER 2025-05-10 14:19 | Outpatient (AMB) | payer MEDICARE, OTHER, SELFPAY ==
--- OUTSIDE RECORDS SUMMARY | 2025-02-21 11:15 | XMS_ITS ---
Author Organization [facility] Address [address] [place] [address] Care Team Providers Care Vehicle Monitor Technician Name Role Phone Yolanda Jack MD Primary Care Provider Unavaila apolinar ManinderJulee Unavailable [phone] Encounters Encounter Location Date Provider Diagnosis [address] [address] 02/21/2025 Julee Maninder Plan Of Treatment Next Appt Details Provider Name:Julee Dickens , 05/30/2025 01:00:00 PM, [address] [place] [address], [phone], Progress Notes * Gina MCCULLOUGH MDOB:[birth year] (64 yo F)Acc No.[id number]:02/21/2025 Progress Note Patient: Nic Gina BARBOSA Provider: Vipul Dickens DPM :1960 A ge:64 Y S ex:Female Date:02/21/2025 Address:[address], [id number] Pcp:Yolanda Jack MD Subjective: * Chief Complaints: [...] 02/21/2025 Generated for Wilder ibarra/Cuong/Gabriella on: 0 05/10/2025 03:30 PM EDT
--- NOTE | 2025-05-10 14:22 | MHC.OFFVIS ---
Vital Signs 05/10/25 14:30 Height 5 ft 1 in BMI Reason not done Palliative Care Patient BP 125/63 Blood Pressure Location Lt brachial Position Sitting Pulse 83 Intake Visit Reasons: one week post skin graft Intake Note: Patient is seen in office for one week follow up visit, post skin graft from left thigh to bilateral feet. 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 Accompanied by: Self / Same As Patient Allergies Adhesive Bandages Allergy (Unknown, Verified 05/10/25 14:31) rash adhesive tape (TAPE,ADHESIVE) Allergy (Unknown, Verified 05/10/25 14:31) RASH amlodipine Allergy (Unknown, Verified 05/10/25 14:31) edema atenolol Allergy (Unknown, Verified 05/10/25 14:31) Bradycardia bisoprolol (From Zebeta) Allergy (Unknown, Verified 05/10/25 14:31) Diarrhea labetalol Allergy (Unknown, Verified 05/10/25 14:31) n/a latex (LATEX) Allergy (Unknown, Verified 05/10/25 14:31) RASH metformin Adverse Reaction (Intermediate, Verified 05/10/25 14:31) Diarrhea semaglutide (From Ozempic) Adverse Reaction (Intermediate, Verified 05/10/25 14:31) Diarrhea vicodin Allergy (Unknown, Uncoded 05/10/25 14:31) heart palpitation actos Adverse Reaction (Intermediate, Uncoded 05/10/25 14:31) Abdominal Pain HPI Comments Details: Patient returns for wound check of bilateral skin grafts. She reports that the donor site is well healed. She still is having some discharge from both toes. VNA is currently present every other day. Patient notes some redness in the right leg which increases when the leg is supine but improves after having the leg elevated. She also notes swelling in the right thigh compared to the left thigh. [facility] Medical History Scoliosis Arthritis Diabetes GERD (gastroesophageal reflux disease) Numbness Elevated cholesterol Bowel incontinence Chronic indwelling Duncan catheter Osteomyelitis Bunion of right foot TONI (obstructive sleep apnea) Hyperglycemia Morbid obesity Foot callus Neuropathy Edema Urinary retention Plantar fasciitis Obesity Osteoarthritis Spinal stenosis Hypertension Surgical History Hx of skin graft (04/14/25) History of esophagogastroduodenoscopy (EGD) Hx of ligation of vein History of carpal tunnel surgery H/O foot surgery History of tonsillectomy H/O colonoscopy History of lumbar surgery Family History Father History of heart attack Mother HTN (hypertension) Stroke Brother Stomach cancer Brother History of heart attack HTN (hypertension) Diabetes mellitus Lung cancer Brother Bladder cancer Heart attack Social History Housing: House Are you a primary customer care agent to a significant other at home: No Do you presently have visiting nurse or 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 home 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 No further dressing is applied Bilateral toe dressings changed. Right toe has good take of the skin graft. Left toe has some sloughing of the graft but generally the wounds remain clean. Both feet were dressed with with 3 x 3 gauze without Xeroform followed by 4 in Horacio and 4 Farhad Bandage. Right leg edema with a small amount of erythema. No calf tenderness although sensation is limited. Assessment & Plan Assessment & Plan (1) Chronic foot ulcer: Comment: Bilateral Code(s): L97.509 - Non-pressure chronic ulcer of other part of unspecified foot with unspecified severity Category: Medical Qualifiers: Laterality: unspecified laterality Non-pressure ulcer stage: with fat layer exposed Qualified Code(s): L97.502 - Non-pressure chronic ulcer of other part of unspecified foot with fat layer exposed Plan Continue local wound care, VNA and follow up in 3 weeks Patient will follow-up with wound care for further evaluation We will start cephalexin 500 mg p.o. q.8 hours times 10 days for the leg swelling and redness. Medications: New cephalexin 500 mg PO Q8H 30 caps 0RF 10 days Coding Level of Care Code Global (43103) Diagnoses Chronic foot ulcer with fat layer exposed, unspecified laterality L97.502 Laterality: unspecified laterality Non-pressure ulcer stage: with fat layer exposed
[2025-05-10 14:30] VITALS: BP 125/63; PULSE 83
== END 2025-05-10 14:54 | disposition home or self-care (01) ==
LOC: HO.HGS 14:20
PROVIDERS: PCP Internal Medicine; Visit Provider Surgery
DX: L97.502 Non-pressure chronic ulcer of other part of unspecified foot with fat layer exposed (principal)
CPT/HCPCS: 99024

== ENCOUNTER → 2025-05-10 14:19 | Outpatient (BNVA) | payer MEDICARE, OTHER, SELFPAY | PROVIDERS: PCP Internal Medicine; Visit Provider Surgery | DX: Z48.817 Encounter for surgical aftercare following surgery on the skin and subcutaneous tissue (principal); L97.522 Non-pressure chronic ulcer of other part of left foot with fat layer exposed; L97.512 Non-pressure chronic ulcer of other part of right foot with fat layer exposed; Z79.2 Long term (current) use of antibiotics; Z98.890 Other specified postprocedural states | CPT/HCPCS: 99212 ==

== ENCOUNTER 2025-06-02 14:49 | Outpatient (AMB) | payer MEDICARE, OTHER, SELFPAY ==
--- OUTSIDE RECORDS SUMMARY | 2025-06-02 14:57 | XMS_ITS | Encounter Summary ---
Author Organization [facility] Address [address] [place] [id number] Phone Care Team Providers Care Finger Lift Operator Name Role Phone Yolanda Jack MD Primary Care Provider [phone] Encounter Details Date Type Department Care Team (Late st Contact Info) Description 04/07/[address] [facility] [address] [place] [address] Social History Tobacco Use Types Packs/Day Years Used Date Smoking Tobacco: Never Assessed Comments Unknown Sex and Gender Information Value Date Recorded Sex Assigned at Not on file Legal Sex Female 3:33 PM EDT Gender Identity Not on file Sexual Orientation Not on file documented as of this encounter Plan of Treatment Not on file documented as of this encounter Visit Diagnoses Not on filedocumented in this encounter Care Teams Finger Lift Operator Relationship Specialty Start Date End Date Yolanda Jack MD [address] [place] [id number] PCP - General Internal Medicine 04/06/19 documented as of this encounter Additional Source Comments The information contained in this document represents components of the legal health record. It is not the complete legal health record.[facility]
--- NOTE | 2025-06-02 15:07 | MHC.OFFVIS ---
Vital Signs 06/02/25 15:09 Height 5 ft 1 in BMI Reason not done Patient refused/unable Respiration 18 Pulse 72 Intake Visit Reasons: 3 f/u week post skin graft Intake Note: Patient is seen in office for 3 week follow up visit, post skin graft from left thigh to bilateral feet. Pt c/o; sees the wound center once a week and VNA twice a week, is applying Colagen Puracol to the wound per wound center In Home Caregiver Required: No Accompanied by: Self / Same As Patient Allergies Adhesive Bandages Allergy (Unknown, Verified 06/02/25 15:09) rash adhesive tape (TAPE,ADHESIVE) Allergy (Unknown, Verified 06/02/25 15:09) RASH amlodipine Allergy (Unknown, Verified 06/02/25 15:09) edema atenolol Allergy (Unknown, Verified 06/02/25 15:09) Bradycardia bisoprolol (From Zebeta) Allergy (Unknown, Verified 06/02/25 15:09) Diarrhea labetalol Allergy (Unknown, Verified 06/02/25 15:09) n/a latex (LATEX) Allergy (Unknown, Verified 06/02/25 15:09) RASH metformin Adverse Reaction (Intermediate, Verified 06/02/25 15:09) Diarrhea semaglutide (From Ozempic) Adverse Reaction (Intermediate, Verified 06/02/25 15:09) Diarrhea vicodin Allergy (Unknown, Uncoded 06/02/25 15:09) heart palpitation actos Adverse Reaction (Intermediate, Uncoded 06/02/25 15:09) Abdominal Pain HPI Comments Details: Patient returns for wound check of bilateral skin grafts. She reports that the donor site is well healed. She was evaluated by the wound care center and started on the a new topical agent for both feet. Overall she feels improved. She will continue to follow up with the Wound Care Center. [facility] Medical History Scoliosis Arthritis Diabetes GERD (gastroesophageal reflux disease) Numbness Elevated cholesterol Bowel incontinence Chronic indwelling Duncan catheter Osteomyelitis Bunion of right foot TONI (obstructive sleep apnea) Hyperglycemia Morbid obesity Foot callus Neuropathy Edema Urinary retention Plantar fasciitis Obesity Osteoarthritis Spinal stenosis Hypertension Surgical History Hx of skin graft (04/14/25) History of esophagogastroduodenoscopy (EGD) Hx of ligation of vein History of carpal tunnel surgery H/O foot surgery History of tonsillectomy H/O colonoscopy History of lumbar surgery Family History Father History of heart attack Mother HTN (hypertension) Stroke Brother Stomach cancer Brother History of heart attack HTN (hypertension) Diabetes mellitus Lung cancer Brother Bladder cancer Heart attack Social History Housing: House Are you a primary animal care assistant to a significant other at home: No Do you presently have visiting nurse or 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 Once again the right toe of has better take of the skin graft in the left toe. No evidence of wound infection is appreciated. Collagen dressings reapplied along with an Farhad bandage. Assessment & Plan Assessment & Plan (1) Chronic foot ulcer: Comment: Bilateral Code(s): L97.509 - Non-pressure chronic ulcer of other part of unspecified foot with unspecified severity Category: Medical Qualifiers: Laterality: unspecified laterality Non-pressure ulcer stage: with fat layer exposed Qualified Code(s): L97.502 - Non-pressure chronic ulcer of other part of unspecified foot with fat layer exposed Plan Patient will continue with wound management at the Wound Care Center. She will follow up in our office as needed. Coding Level of Care Code Global (79707) Diagnoses Chronic foot ulcer with fat layer exposed, unspecified laterality L97.502 Laterality: unspecified laterality Non-pressure ulcer stage: with fat layer exposed
[2025-06-02 15:09] VITALS: PULSE 72; RESP 18
== END 2025-06-02 15:31 | disposition home or self-care (01) ==
LOC: HO.HGS 14:50
PROVIDERS: PCP Internal Medicine; Visit Provider Surgery
DX: L97.502 Non-pressure chronic ulcer of other part of unspecified foot with fat layer exposed (principal)
CPT/HCPCS: 99024

== ENCOUNTER → 2025-06-02 14:49 | Outpatient (BNVA) | payer MEDICARE, OTHER, SELFPAY | PROVIDERS: PCP Internal Medicine; Visit Provider Surgery | DX: E11.621 Type 2 diabetes mellitus with foot ulcer (principal); L97.522 Non-pressure chronic ulcer of other part of left foot with fat layer exposed; L97.512 Non-pressure chronic ulcer of other part of right foot with fat layer exposed; I10 Essential (primary) hypertension | CPT/HCPCS: 99212 ==

== ENCOUNTER 2025-06-20 14:47 | Inpatient (IN) | payer MEDICARE, OTHER, SELFPAY ==
--- NOTE | ~2025-06-20 | XR_ITS ---
EXAMINATION: XR CHEST CLINICAL INFORMATION: weakness, fatigue COMPARISON: Chest x-ray 10/17/2022. TECHNIQUE: Frontal view of the chest was obtained. FINDINGS: No significant abnormality is noted involving the heart, lungs, mediastinum, bony thorax or soft tissues. XR/XR chest 1V IMPRESSION: Unremarkable chest examination. No change from 10/17/2022 exam. Electronically signed by: Иван Tillman MD 06/20/2025 04:50 PM EDT
--- NOTE | ~2025-06-20 | US_ITS ---
EXAMINATION: US TRIPLEX LOWER EXTREMITY, RIGHT CLINICAL INFORMATION: Erythema. COMPARISON: None available. TECHNIQUE: Color-flow triplex imaging with spectral analysis and compression Doppler were performed on the right lower extremity. FINDINGS: Respiratory variation, normal compression and augmented flow are noted throughout the right lower extremity. The visualized common femoral vein, superficial femoral vein, profunda femoral vein, popliteal vein and midcalf peroneal and posterior tibial venous segments show no evidence of deep venous thrombosis. There are small right groin lymph nodes seen measuring 2.5 cm and 4.5 cm. There is no Hernandez's cyst. US/US venous duplex LE RT IMPRESSION: No evidence of deep venous thrombosis involving the right lower extremity. Electronically signed by: Иван Tillman MD 06/20/2025 04:36 PM EDT
--- NOTE | 2025-06-20 14:53 | ED.EXTPRO ---
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 Lopez in April who presents to the ER from home via EMS for evaluation of generalized weakness, lethargy and new red rash to right thigh concerning for cellulitis. She states starting yesterday she was fatigued and weak. Her visiting nurse who comes in for dressing changes on her foot wounds saw she had new redness on her right thigh that was not present when she was seen last Friday. Patient denies any associated pain in the area. She has had chills at home but no fevers that she is aware of. No SOB, chest pain, abdominal pain, N/V/D or urinary symptoms. She states she was recently on antibiotics in May after Dr. Lopez saw her in the office and said her right lower leg was red. She was found to be tachycardic MD Complaint: extremity swelling and other (extremity rash) Onset (ago): day(s) Pain Consistency: constant Location: right and lower extremity Associated symptoms: other (fatigue, weakness) Related Data Home Medications ?Medication ?Instructions ?Recorded ?Confirmed aspirin 81 mg tablet,delayed 81 mg PO DAILY 09/15/20 05/04/25 release cholecalciferol (vitamin D3) 25 25 mcg PO DAILY 09/15/20 05/04/25 mcg (1,000 unit) capsule magnesium oxide 500 mg capsule 500 mg PO DAILY 09/15/20 05/04/25 omega 0-eng-vcy-fish oil 1,000 mg 1 cap PO BID 09/15/20 05/04/25 (120 mg-180 mg) capsule (Fish Oil) acetaminophen 650 mg 1,300 mg PO Q12H 01/01/22 05/04/25 tablet,extended release multivitamin 1 tab PO DAILY 01/01/22 05/04/25 omeprazole 20 mg capsule,delayed 20 mg PO DAILY 01/01/22 05/04/25 release Lactobacillus acidophilus 1,000 mmu cells PO DAILY 01/03/25 05/04/25 (Acidophilus capsule) rosuvastatin 10 mg tablet 10 mg PO DAILY 04/07/25 05/04/25 terazosin 10 mg capsule 20 mg PO BEDTIME 04/07/25 05/04/25 Previous Rx's ?Medication ?Instructions ?Recorded catheter 20 Fr (Bardex #12 ea 01/24/22 All-Silicone Duncan Catheter) spironolactone 25 mg tablet 25 mg PO DAILY #90 tabs 08/24/24 carvedilol 6.25 mg tablet 6.25 mg PO BID #180 tabs 10/28/24 furosemide 40 mg tablet 40 mg PO DAILY #90 tabs 10/28/24 gabapentin 300 mg capsule 900 mg (3 x 300 mg) PO BEDTIME 10/28/24 #270 caps hydralazine 50 mg tablet 50 mg PO BID #180 tabs 10/28/24 irbesartan 300 mg tablet 300 mg PO DAILY #90 tabs 10/28/24 pregabalin 150 mg capsule 150 mg PO BID #180 caps 02/03/25 celecoxib 200 mg capsule 200 mg PO BID #180 caps 02/15/25 Mounjaro 5 mg/0.5 mL subcutaneous 5 mg (0.5 mL) subcut QWEEK #2 mL 03/28/25 pen injector (tirzepatide) cephalexin 500 mg capsule 500 mg PO Q8H 10 days #30 caps 05/10/25 nystatin 100,000 unit/gram topical 1 appl topical BID #240 grams 05/24/25 powder (Nystop) Allergies Allergy/AdvReac Type Severity Reaction Status Date / Time Adhesive Bandages Allergy Unknown rash Verified 06/20/25 15:30 adhesive tape (TAPE,ADHESIVE) Allergy Unknown RASH Verified 06/20/25 15:30 amlodipine Allergy Unknown edema Verified 06/20/25 15:30 atenolol Allergy Unknown Bradycardia Verified 06/20/25 15:30 bisoprolol (From Zebeta) Allergy Unknown Diarrhea Verified 06/20/25 15:30 labetalol Allergy Unknown n/a Verified 06/20/25 15:30 latex (LATEX) Allergy Unknown RASH Verified 06/20/25 15:30 metformin AdvReac Intermediate Diarrhea Verified 06/20/25 15:30 semaglutide (From Ozempic) AdvReac Intermediate Diarrhea Verified 06/20/25 15:30 vicodin Allergy Unknown heart Uncoded 06/02/25 15:09 palpitation actos AdvReac Intermediate Abdominal Uncoded 06/02/25 15:09 Pain Review of Systems Review of Systems: Yes all other systems are reviewed and are negative [facility] Past Medical History Medical History Scoliosis Arthritis Diabetes GERD (gastroesophageal reflux disease) Numbness Elevated cholesterol Bowel incontinence Chronic indwelling Duncan catheter Osteomyelitis Bunion of right foot TONI (obstructive sleep apnea) Hyperglycemia Morbid obesity Foot callus Neuropathy Edema Urinary retention Plantar fasciitis Obesity Osteoarthritis Spinal stenosis Hypertension Surgical History Hx of skin graft (04/14/25) History of esophagogastroduodenoscopy (EGD) Hx of ligation of vein History of carpal tunnel surgery H/O foot surgery History of tonsillectomy H/O colonoscopy History of lumbar surgery Family History Family History Father History of heart attack Mother HTN (hypertension) Stroke Brother Stomach cancer Brother History of heart attack HTN (hypertension) Diabetes mellitus Lung cancer Brother Bladder cancer Heart attack Social History Social History Housing: House Are you a primary manager critical care unit to a significant other at home: No Do you presently have visiting nurse or other home services: Yes (DIRECTOR CAREER SERVICES) Alcohol intake: never Patient Tobacco Use Status: Never used Tobacco Smoked in Last 30 Days: No e-Cigarette/Vaping Use: Never Used Second Hand Smoke Exposure: No Use of substances other than those prescribed or required for medical reasons: No Advance Directives: No Advance Directives Information Provided: No service: No Current occupational status: disabled Current occupation: right hand dominant Cognitive needs: No Hearing needs: No Vision needs: Yes Physical Exam Exam: Exam: Appearance: Alert female, appears older than stated age. Oriented X3. No acute distress. Head: normocephalic, atraumatic. Eyes: Pupils equal, round and reactive to light. ENT: Pharynx normal. No tonsillar swelling or exudate. Neck: Normal inspection. Neck supple. CVS: tachycardic low 100s, regular rhythm. Respiratory: No respiratory distress. Breath sounds normal. Abdomen: obese, soft and nontender. +BS x4 Skin: Skin warm and dry. Normal skin color. Normal skin turgor. No rashes. Extremities: right lower leg with petechial type rash, mild erythema and warmth of the posterior lower leg, anterior/medial right thigh with warmth, erythema, pitting edema. minimally tender. bilateral feet with wounds over the MTP, see wound photos below Neuro/psych: Oriented X 3. No motor deficit. decreased sensation in the bilateral feet. CN II-XII intact. Normal speech and cognition. Vital Signs: Vital Signs: Last Vital Signs Temp 102.9 F H 06/20/25 15:31 Pulse 98 06/20/25 15:31 Resp 20 06/20/25 15:31 BP 119/43 L 06/20/25 15:31 Pulse Ox 96 06/20/25 15:31 O2 Del Method Room Air 06/20/25 15:31 BMI result Body Mass Index 57.6 Medications Administered Generic Name Dose Route Start Last Admin Trade Name Freq PRN Reason Stop Dose Admin Vancomycin HCl 2,000 mg in 500 mls @ 250 mls/hr 06/20/25 15:12 06/20/25 15:45 Vancomycin/Ns IV 06/20/25 17:11 250 mls/hr ONCE ONE Administration Discontinued Medications Generic Name Dose Route Start Last Admin Trade Name Freq PRN Reason Stop Dose Admin Acetaminophen 975 mg 06/20/25 15:13 06/20/25 15:44 Acetaminophen 325 Mg Tablet PO 06/20/25 15:14 975 mg ONCE ONE Administration Ceftriaxone Sodium 1 gm 06/20/25 15:12 06/20/25 15:44 Ceftriaxone Sodium 1 Gm Vial IVPUSH 06/20/25 15:13 1 gm ONCE ONE Administration Lactated Ringer's 1,000 mls @ 999 mls/hr 06/20/25 15:15 06/20/25 15:44 Lr IV 06/20/25 16:15 999 mls/hr .Q1H1M PRISCILLA Administration Medical Decision Making Medical Decision Making MDM Narrative: 65 yo female with history of morbid obesity, wheelchair bound at baseline, TONI, DM2, HTN, urinary retention w/ chronic Duncan, 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 Lopez in April who presents to the ER from home via EMS for evaluation of generalized weakness, lethargy and new red rash to right thigh concerning for cellulitis. On arrival to the ER she is found to be febrile to 102.9 w/ HR 98. There is concern for infection as her examination is consistent with right thigh cellulitis. She was ordered for IV vancomycin and ceftriaxone for broad coverage. Her old cultures were reviewed and her Enterococcus was pansensitive. She also has history of Proteus mirabilis that was also pansensitive. 1 L of IV fluids ordered, old echo reviewed, no history of diastolic or heart failure. She is on 2 L nasal cannula as she was satting 90% with EMS. This may be related to TONI/OHS. She has no SOB, cough and lung sounds are clear. Labs show mild leukocytosis, markedly elevated inflammatory markers. Lactic acid is normal. No evidence of severe sepsis at this time. Initial BP 119/43 with MAP 68, repeat BP with MAPs in the 80s x2. Will plan for admission for further management of sepsis 2/2 cellulitis. Differential Diagnosis Differential Diagnoses: The differential diagnosis associated with the presentation includes Cellulitis, DVT, erysipyelas, superficial thrombophlebitis, infected skin graft, osteomyelitis, pneumonia, UTI Admission/Observation Consideration of admission/observation: Escalation of care including admission/observation considered Consult Healthcare Provider Management of the patient was discussed with: Hospitalist Lab Data MDM Lab Attestation statement: I reviewed the patient's lab results. anemia, leukocytosis, elevated BUN, markedly elevated CRP and ESR 06/20/25 15:22 06/20/25 15:22 Labs: Lab Results 06/20/25 06/20/25 Range/Units 15:22 15:37 WBC 11.3 H (4.8-10.8) X10*3/uL RBC 3.69 L (4.20-5.50) X10*6/uL Hgb 10.1 L (12.0-16.0) g/dl Hct 30.3 L (37.0-47.0) % MCV 82.1 (80.0-98.0) fL MCH 27.4 (27.0-33.0) pg MCHC 33.3 (31.0-35.0) g/dl RDW 17.9 H (11.0-16.0) % Plt Count 192 D (160-400) X10*3/uL MPV 10.7 (9.4-12.3) fL Immature Gran % (Auto) 0.8 H (0.0-0.4) % Neut % (Auto) 78.6 H (45-73) % Lymph % (Auto) 10.8 L (20-40) % Towns % (Auto) 9.6 (2-11) % Eos % (Auto) 0.0 (0-4) % Baso % (Auto) 0.2 (0-2) % Lymph # (Auto) 1.2 (1.2-4.9) X10*3/uL Towns # (Auto) 1.1 (0.1-1.2) X10*3/uL Eos # (Auto) 0.0 (0.0-0.4) X10*3/uL Baso # (Auto) 0.0 (0.0-0.2) X10*3/uL Abs Immat Gran (auto) 0.09 H (0.00-0.03) X10*3/uL Absolute Neuts (auto) 8.9 H (2.0-8.3) x10*3/uL Absolute Nucleated RBC 0.000 (0.0-0.012) X10*3/uL Nucleated RBC % (auto) 0.0 (0.0-0.2) /100WBC ESR 83 H (0-20) MM/HR Sodium 135 (135-145) mmol/L Potassium 4.4 (3.3-5.1) mmol/L Chloride 101 (96-108) mmol/L Carbon Dioxide 26 (22-29) mmol/L Anion Gap 12 (12-20) BUN 34 H (9-16) mg/dL Creatinine 1.07 (0.5-1.4) mg/dL Estim Creat Clear Calc 70.4 Estimated GFR 52 Random Glucose 134 H (60-115) mg/dL Lactic Acid 1.0 (0.5-2.0) mmol/L Calcium 8.7 (8.4-10.2) mg/dL Magnesium 2.1 (1.6-2.6) mg/dL Total Bilirubin 0.7 (0.0-1.0) mg/dL Direct Bilirubin 0.3 (0.0-0.5) mg/dL AST 37 H (5-31) U/L ALT 29 (0-31) U/L Alkaline Phosphatase 100 (39-117) U/L Troponin I High Sens 8.6 (<3.5-17.0) ng/L C-Reactive Protein 21.70 H (< or = 0.50) mg/dL B-Natriuretic Peptide 18 (<100) pg/mL Total Protein 7.3 (6.5-8.0) g/dL Albumin 4.0 (3.5-5.0) g/dL Procalcitonin 0.23 ng/mL Influenza Type A (PCR) NEGATIVE (Negative) Influenza Type B (PCR) NEGATIVE (Negative) RSV RNA Qual (PCR) NEGATIVE (Negative) SARS-CoV-2 RNA (RT-PCR) NEGATIVE (Negative) Independent Interpretation I performed an independent interpretation of an: EKG, Plain X-Ray and Ultrasound Interpretation: EKG w/ sinus arrythmia, HR 91 bpm, no change from prior, no ST segment elevations or depressions CXR with no focal consolidation US without visible DVT Radiology Impression Discussion of test interpretation with radiology: I have reviewed the radiologist's reading. Independent Historian Clinical information obtained from an independent historian. History obtained from or confirmed by: EMS External Record Review External record reviewed: Office record, Outpatient record, Prior outpatient labs and Prior outpatient radiology Prescription Management I considered prescription management with: Pain Medication and Antibiotic Chronic Conditions Patient?s care impacted by: Diabetes and Hypertension Critical Care Time Critical Care Time Critical Care Time: Yes Total Critical Care Time: 45 Attestation: I have personally provided critical care time exclusive of time spent on separately billable procedures. Time includes review of lab data, radiology results, discussion with consultants, and monitoring for potential decompensation. Intervention performed as documented. Discharge Plan Discharge Clinical Impression: Cellulitis of leg, right Sepsis Qualifiers: Sepsis type: sepsis due to unspecified organism Sepsis acute organ dysfunction status: unspecified Qualified Code(s): A41.9 - Sepsis, unspecified organism Patient Disposition: Admitted As Inpatient Print Language: Hungarian
--- NOTE | 2025-06-20 15:00 | ECG_ITS ---
Test Reason : WEAKNESS Blood Pressure : */* mmHG Vent. Rate : 91 BPM Atrial Rate : 91 BPM P-R Int : 154 ms QRS Dur : 88 ms QT Int : 338 ms P-R-T Axes : 6 52 44 degrees QTcB Int : 415 ms Normal sinus rhythm with PACs Normal ECG When compared with ECG of 07-Apr-2025 11:26, No significant change was found Referred By: Rosio Fleming Electronically Signed By: Jalen Gu
[2025-06-20 15:27] VITALS: PULSE 110; O2SAT 97; BMI 57.6
[2025-06-20 15:27] LABS: MANUAL DIFF FLAG NO
[2025-06-20 15:29] LABS: Hematocrit 30.3 % (37.0-47.0); Hemoglobin 10.1 g/dl (12.0-16.0); Imm Gran Abs Auto 0.09 X10*3/uL (0.00-0.03); Imm Gran Pct Auto 0.8 % (0.0-0.4); Lymphocytes Absolute Auto 1.2 X10*3/uL (1.2-4.9); Mean Corpuscular HGB Conc 33.3 g/dl (31.0-35.0); Mean Corpuscular Hemoglobin 27.4 pg (27.0-33.0); Mean Corpuscular Volume 82.1 fL (80.0-98.0); NRBC Abs Auto 0.000 X10*3/uL (0.0-0.012); NRBC Pct Auto 0.0 /100WBC (0.0-0.2); Platelet Count 192 X10*3/uL (160-400); Red Blood Count 3.69 X10*6/uL (4.20-5.50); White Blood Count 11.3 X10*3/uL (4.8-10.8)
[2025-06-20 15:31] VITALS: BP 119/43; PULSE 98; RESP 20; TEMP 39.4; O2SAT 96
[2025-06-20] MEDS: Lactated Ringers 1,000 ML 999 ML IV (15:44)
[2025-06-20] MEDS: vancomycin/NS 2,000 MG/500 ML PLAST..BAG 250 MG IV (15:45)
[2025-06-20 15:51] LABS: Alanine Aminotransferase 29 U/L (0-31); Albumin Level 4.0 g/dL (3.5-5.0); Alkaline Phosphatase 100 U/L (39-117); Anion Gap 12 (12-20); Aspartate Amino Transferase 37 U/L (5-31); Blood Urea Nitrogen 34 mg/dL (9-16); Calcium 8.7 mg/dL (8.4-10.2); Carbon Dioxide 26 mmol/L (22-29); Chloride 101 mmol/L (96-108); Creatinine Clr Calc Pharmacy 70.4; Estimated Glomerular Filt Rate 52; Magnesium 2.1 mg/dL (1.6-2.6); Potassium 4.4 mmol/L (3.3-5.1); Sodium 135 mmol/L (135-145); Total Protein 7.3 g/dL (6.5-8.0); Troponin-I High Sensitivity 8.6 ng/L (<3.5-17.0)
--- NOTE | 2025-06-20 16:03 | MHC.EDTECH ---
Blood cultures were double ordered, sets 1 and 2 were sent to the lab.
[2025-06-20 16:05] LABS: Procalcitonin 0.23 ng/mL
[2025-06-20 16:08] LABS: B Type Natriuretic Peptide 18 pg/mL (<100)
[2025-06-20 16:30] LABS: Resp Syncy Virus RNA Qual PCR NEGATIVE (Negative); SARS COV2 PCR INHOUSE NEGATIVE (Negative)
[2025-06-20 18:00] VITALS: BP 106/53; PULSE 77; RESP 22; TEMP 37; O2SAT 95
--- NOTE | 2025-06-20 18:17 | PC.NURSE ---
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 Lopez in April who presents to the ER from home via EMS for evaluation of generalized weakness, lethargy and new red rash to right thigh. Patient morbidly obese and bedbound. Alert and oriented. Placed on cardiac cath lab technologist and NSR noted. Patient febrile rectally. Respirations even and non-labored. sl hypoxic with pox in the low 90's and patient placed on o2 therapy at 2L via NC. Abdomen large soft, non-tender with positive bowel sounds. Large soft BM noted and incontinence care performed. Coccyx, buttocks and wale area reddened. Patient with a chronic heredia and placed to gravity. Large red, warm, firm to the touch area noted to inner right thigh. A petechia looking rash noted to right LE. Open areas noted to bilat feet where wounds were grafted. Wound care consult requested. Original Note: Medical History Scoliosis Arthritis Diabetes GERD (gastroesophageal reflux disease) Numbness Elevated cholesterol Bowel incontinence Chronic indwelling Heredia catheter Osteomyelitis Bunion of right foot TONI (obstructive sleep apnea) Hyperglycemia Morbid obesity Foot callus Neuropathy Edema Urinary retention Plantar fasciitis Obesity Osteoarthritis Spinal stenosis Hypertension
--- NOTE | 2025-06-20 18:35 | PHA.MEDREC ---
Addendum entered by Virgie Bishop chris 06/20/25 19:18: REVIEWED BY PHARMACIST Original Note: Pharmacy Consult ? Medication Reconciliation Pharmacy has completed the medication reconciliation. Patient was able to confirm all her medications. Patient confirmed Mounjaro 5 mg every Friday, last dose 06/13/25, however last fill date was 04/22/25 for 30 days, hyadralazine 50 mg , however last fill date was 10/02/24 for 90 days. patient states she last had her medications last night.
--- NOTE | 2025-06-20 19:12 | PM.IMHP ---
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 Pt was being seen by [facility] earlier in the morning for wound care, when nurse noticed a new rash on her right leg concerning for cellulitis. Pt herself does not know when the rash started, but reports for the past 2 days has had subjective fever and chills, as well as feeling generally weak with reduced appetite and increased fatigue. No SOB or difficulty breathing. Denies chest pain/pressure, palpitations. No nausea, vomiting, diarrhea, or abdominal pain. In the ED pt was febrile at 01:02 0.9, tachypneic at 22, an elevated HR of 98. Labs were significant for mild leukocytosis of 11.3, ESR 83, AST 37, CRP 21.70, procalcitonin 0.23, and lactic acid WNL at 1.0. CXR was unremarkable. Right lower extremity venous duplex negative for DVT. EKG demonstrated normal sinus rhythm with sinus arrhythmia, similar to prior. Pt was treated in the ED with acetaminophen, IVF, ceftriaxone, and vancomycin. Pt is admitted to the hospital for treatment and further evaluation of right lower extremity cellulitis with sepsis. Review of Systems Review of Systems: Negative except for that which is stated in the HPI. [facility] Medical History Scoliosis Arthritis Diabetes GERD (gastroesophageal reflux disease) Numbness Elevated cholesterol Bowel incontinence Chronic indwelling Duncan catheter Osteomyelitis Bunion of right foot TONI (obstructive sleep apnea) Hyperglycemia Morbid obesity Foot callus Neuropathy Edema Urinary retention Plantar fasciitis Obesity Osteoarthritis Spinal stenosis Hypertension Family History Father History of heart attack Mother HTN (hypertension) Stroke Brother Stomach cancer Brother History of heart attack HTN (hypertension) Diabetes mellitus Lung cancer Brother Bladder cancer Heart attack Surgical History Hx of skin graft (04/14/25) History of esophagogastroduodenoscopy (EGD) Hx of ligation of vein History of carpal tunnel surgery H/O foot surgery History of tonsillectomy H/O colonoscopy History of lumbar surgery Social History Housing: House Are you a primary health care sanitary technician to a significant other at home: No Do you presently have visiting nurse or other home services: Yes ([employer]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) Alcohol intake: never Patient Tobacco Use Status: Never used Tobacco Smoked in Last 30 Days: No e-Cigarette/Vaping Use: Never Used Second Hand Smoke Exposure: No Use of substances other than those prescribed or required for medical reasons: No Advance Directives: No Advance Directives Information Provided: No service: No Current occupational status: disabled Current occupation: right hand dominant Cognitive needs: No Hearing needs: No Vision needs: Yes Meds Allergies Allergy/AdvReac Type Severity Reaction Status Date / Time Adhesive Bandages Allergy Unknown rash Verified 06/20/25 15:30 adhesive tape (TAPE,ADHESIVE) Allergy Unknown RASH Verified 06/20/25 15:30 amlodipine Allergy Unknown edema Verified 06/20/25 15:30 atenolol Allergy Unknown Bradycardia Verified 06/20/25 15:30 bisoprolol (From Zebeta) Allergy Unknown Diarrhea Verified 06/20/25 15:30 labetalol Allergy Unknown n/a Verified 06/20/25 15:30 latex (LATEX) Allergy Unknown RASH Verified 06/20/25 15:30 metformin AdvReac Intermediate Diarrhea Verified 06/20/25 15:30 semaglutide (From Ozempic) AdvReac Intermediate Diarrhea Verified 06/20/25 15:30 vicodin Allergy Unknown heart Uncoded 06/02/25 15:09 palpitation actos AdvReac Intermediate Abdominal Uncoded 06/02/25 15:09 Pain Home Medications ?Medication ?Instructions ?Recorded ?Confirmed ?Last Taken ?Type aspirin 81 mg tablet,delayed 81 mg PO DAILY 09/15/20 06/20/25 06/19/25 History release cholecalciferol (vitamin D3) 25 25 mcg PO DAILY 09/15/20 06/20/25 06/19/25 History mcg (1,000 unit) capsule magnesium oxide 500 mg capsule 500 mg PO DAILY 09/15/20 06/20/25 06/19/25 History omega 8-imc-fcf-fish oil 1,000 mg 1 cap PO BID 09/15/20 06/20/25 06/19/25 History (120 mg-180 mg) capsule (Fish Oil) acetaminophen 650 mg 1,300 mg PO Q12H 01/01/22 06/20/25 06/19/25 History tablet,extended release multivitamin 1 tab PO DAILY 01/01/22 06/20/25 06/19/25 History omeprazole 20 mg capsule,delayed 20 mg PO DAILY@0630 01/01/22 06/20/25 06/19/25 History release Lactobacillus acidophilus 1,000 mmu cells PO DAILY 01/03/25 06/20/25 06/19/25 History (Acidophilus capsule) rosuvastatin 10 mg tablet 10 mg PO DAILY 04/07/25 06/20/25 06/19/25 History terazosin 10 mg capsule 20 mg PO BEDTIME 04/07/25 06/20/25 06/19/25 History nystatin 100,000 unit/gram topical 1 appl topical BID PRN Rash 06/20/25 06/20/25 Unknown History powder (Nystop) tirzepatide 5 mg/0.5 mL 5 mg subcut MO 06/20/25 06/20/25 06/13/25 History subcutaneous pen injector (Marlee) Physical Exam Vital Signs and Narrative: Vital Signs: Last Vital Signs Temp 98.6 F 06/20/25 18:00 Pulse 77 06/20/25 18:00 Resp 22 H 06/20/25 18:00 BP 106/53 L 06/20/25 18:00 Pulse Ox 95 06/20/25 18:00 O2 Del Method Nasal Cannula 06/20/25 18:00 O2 Flow Rate 2 06/20/25 18:00 BMI result Body Mass Index 57.6 General: AOx3, no acute distress Resp: CTA bilaterally CVS: S1, S2, RRR GI: Soft, NT, no distention Skin: Warm, dry Neuro: Cranial nerves II-XII grossly intact bilaterally. Motor grossly intact bilaterally Extremities: Right lower extremity with erythema, swelling, warmth, and tenderness from ankle to upper inner thigh. Chronic bilateral foot ulcers on dorsal aspect. As pictured below Psych: Appropriate affect Results Labs 06/20/25 15:22 06/20/25 15:22 Labs: Laboratory Results - last 24 hr 06/20/25 06/20/25 15:22 15:37 MCV 82.1 MCH 27.4 MCHC 33.3 RDW 17.9 H Plt Count 192 D MPV 10.7 Immature Gran % (Auto) 0.8 H Neut % (Auto) 78.6 H Lymph % (Auto) 10.8 L [place] % (Auto) 9.6 Eos % (Auto) 0.0 Baso % (Auto) 0.2 Lymph # (Auto) 1.2 [place] # (Auto) 1.1 Eos # (Auto) 0.0 Baso # (Auto) 0.0 Abs Immat Gran (auto) 0.09 H Absolute Neuts (auto) 8.9 H Absolute Nucleated RBC 0.000 Nucleated RBC % (auto) 0.0 ESR 83 H Anion Gap 12 Estim Creat Clear Calc 70.4 Estimated GFR 52 Random Glucose 134 H Lactic Acid 1.0 Calcium 8.7 Magnesium 2.1 Total Bilirubin 0.7 Direct Bilirubin 0.3 AST 37 H ALT 29 Alkaline Phosphatase 100 C-Reactive Protein 21.70 H B-Natriuretic Peptide 18 Total Protein 7.3 Albumin 4.0 Procalcitonin 0.23 Influenza Type A (PCR) NEGATIVE Influenza Type B (PCR) NEGATIVE RSV RNA Qual (PCR) NEGATIVE SARS-CoV-2 RNA (RT-PCR) NEGATIVE Imaging Radiologist's Impressions: Impressions Chest X-Ray 06/20/25 15:08 IMPRESSION: Unremarkable chest examination. No change from 10/17/2022 exam. Electronically signed by: Иван Tillman MD 06/20/2025 04:50 PM EDT RP Venous Duplex 06/20/25 15:53 IMPRESSION: No evidence of deep venous thrombosis involving the right lower extremity. 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 Lopez in April, obesity class 3, TOIN on BiPAP, and spinal stenosis now wheelchair-bound at baseline?who presents to the ED with?for evaluation of new red rash to right leg. Pt is admitted to the hospital for treatment and further evaluation of right lower extremity cellulitis with sepsis. Right lower extremity cellulitis with sepsis Meets sepsis criteria with fever, tachycardia, and tachypnea; lactic acid WNL Pt given IVF and started on broad-spectrum antibiotics in the ED Will treat with vancomycin, started 06/20/2025 Follow blood cultures Chronic bilateral foot ulcers S/p skin grafting by Dr. Lopez in April Do not appear grossly infected Wound care consult HTN Continue carvedilol, hydralazine, irbesartan Chronic lower extremity edema Continue furosemide, spironolactone HLD Continue statin, aspirin Diet-controlled diabetes type 2 On Mounjaro at home Diabetic diet GERD Continue PPI TONI On BiPAP at night Full Code Attending:?Dr. Atwood DVT Prophylaxis: Lovenox Pt will require a hospitalization of at least two nights for treatment of?right lower extremity cellulitis with sepsis that will require IV antibiotics while awaiting blood cultures. Quality Stroke Does the patient have a stroke diagnosis?: No VTE Prior VTE?: No VTE Risk Level:: Medical - moderate - high VTE Device Contraindication: Treatment Not Indicated VTE Drug Contraindication: N/A - Med Ordered
[2025-06-20 20:00] VITALS: BP 106/60; PULSE 81; RESP 18; TEMP 36.9; O2SAT 97
[2025-06-20] MEDS: 0.9 % Sodium Chloride Flush 3 ML SYRINGE IVFLUSH (20:28)
[2025-06-20 22:17] VITALS: PULSE 86; RESP 18; O2SAT 94
[2025-06-20 23:17] LABS: Appearance Urine Clear; Glucose Urine UA Negative (Negative); PH 6.0 (5.0-9.0); Specific Gravity - Urine 1.010 (1.005-1.025); UMIC TRIGGER UACC YES
[2025-06-20 23:29] LABS: UACC Culture Trigger YES
[2025-06-21 04:00] VITALS: BP 95/52; PULSE 75; RESP 20; TEMP 36.3; O2SAT 95
[2025-06-21 06:22] LABS: Creatinine Clr Calc Pharmacy 83.7; Estimated Glomerular Filt Rate > 60
[2025-06-21 07:29] VITALS: BP 110/59; PULSE 76; RESP 20; TEMP 36.7; O2SAT 94
[2025-06-21] MEDS: 0.9 % Sodium Chloride Flush 3 ML SYRINGE IVFLUSH ×2 (09:10→20:38)
[2025-06-21] MEDS: Aspirin Enteric Coated 81 MG TABLET.DR PO (09:10)
--- NOTE | 2025-06-21 13:02 | MHC.CM.PN ---
pt lives alone has a boat buffer plastic 2 x a dy is active with [facility] pt needs an amb home dc plan home
[2025-06-21 15:34] VITALS: BP 119/57; PULSE 80; RESP 18; TEMP 36.8; O2SAT 95
--- NOTE | 2025-06-21 16:45 | P.PNIM_ITS ---
Subjective Subjective Date of Service: 06/21/25 Interval History: No fever Overall feeling better No acute events overnight Review of Systems Review of Systems: Yes all other systems are reviewed and are negative Physical Exam 2 Exam: Exam: General: AOx3, no acute distress Resp: CTA bilaterally CVS: S1, S2, RRR GI: +BS, NT, no distention Skin: Warm, dry Neuro: Cranial nerves II-XII grossly intact bilaterally. Motor grossly intact bilaterally Extremities: Right lower extremity with erythema, swelling, warmth and tenderness from ankle to upper inner thigh, mildly improve last night. Chronic bilateral foot ulcers on dorsal aspect without evidence of infection. As pictured below Psych: Appropriate affect Vital Signs: Vital Signs: Last Vital Signs Temp 98.2 F 06/21/25 15:34 Pulse 80 06/21/25 15:34 Resp 18 06/21/25 15:34 BP 119/57 L 06/21/25 15:34 Pulse Ox 95 06/21/25 15:34 O2 Del Method Room Air 06/21/25 15:34 O2 Flow Rate 2 06/20/25 20:00 BMI result Body Mass Index 57.6 Objective Data Active Medications Acetaminophen (Acetaminophen 325 Mg Tablet) 650 mg PO Q6H PRN PRN Reason: Pain, Mild 1-3,fever,headache Aspirin (Aspirin Enteric Coated 81 Mg Tablet.) 81 mg PO DAILY [facility] Last Admin: 06/21/25 09:10 Dose: 81 mg Documented By: GANGA Atorvastatin Calcium (Atorvastatin Calcium 20 Mg Tablet) 20 mg PO DAILY [facility] Last Admin: 06/21/25 09:10 Dose: 20 mg Documented By: GANGA Calcium Carbonate (Calcium Carbonate 750 Mg Tab.Chew) 750 mg PO Q4H PRN PRN Reason: Heartburn Carvedilol (Carvedilol 6.25 Mg Tablet) 6.25 mg PO BID [facility]; Protocol On Hold: 06/21/25 07:26 Last Admin: 06/20/25 20:31 Dose: 6.25 mg Documented By: BRIAN Celecoxib (Celecoxib 200 Mg Capsule) 200 mg PO BID [facility] Last Admin: 06/21/25 09:10 Dose: 200 mg Documented By: GANGA Doxazosin Mesylate (Doxazosin Mesylate 2 Mg Tablet) 16 mg PO BEDTIME [facility] Last Admin: 06/20/25 20:37 Dose: Not Given Documented By: HO.CROP Non-Admin Reason: Patient Refused Enoxaparin Sodium (Enoxaparin Sodium 40 Mg/0.4 Ml Syringe) 40 mg SUBCUT Q24H [facility] Last Admin: 06/20/25 20:27 Dose: 40 mg Documented By: BRIAN Furosemide (Furosemide 40 Mg Tablet) 40 mg PO DAILY [facility]; Protocol On Hold: 06/21/25 09:00 Gabapentin (Gabapentin 300 Mg Capsule) 900 mg PO BEDTIME [facility] Last Admin: 06/20/25 20:27 Dose: 900 mg Documented By: BRIAN Hydralazine HCl (Hydralazine Hcl 50 Mg Tablet) 50 mg PO BID [facility]; Protocol On Hold: 06/21/25 07:26 Last Admin: 06/20/25 20:27 Dose: 50 mg Documented By: BRIAN Vancomycin HCl 1,500 mg/ (Sodium Chloride) 500 mls @ 333.333 mls/hr IV Q24H [facility] Magnesium Hydroxide (Milk Of Magnesia 30 Ml Oral.Susp) 30 ml PO DAILY PRN PRN Reason: Constipation Magnesium Oxide (Magnesium Oxide 400 Mg Tablet) 400 mg PO DAILY [facility] Last Admin: 06/21/25 09:10 Dose: 400 mg Documented By: GANGA Melatonin (Melatonin 3 Mg Tablet) 6 mg PO BEDTIME PRN PRN Reason: Insomnia Multivitamins/Vitamin C (Multivitamin Tablet) 1 tab PO DAILY [facility] Last Admin: 06/21/25 09:10 Dose: 1 tab Documented By: GANGA Nystatin (Nystatin Powder 15 Gm Bottle) 1 appl TOPICAL BID PRN; Protocol PRN Reason: Rash Omeprazole (Omeprazole 20 Mg Magda.) 20 mg PO DAILY@0630 [facility] Last Admin: 06/21/25 05:34 Dose: 20 mg Documented By: BRIAN Ondansetron HCl (Ondansetron Hcl 4 Mg/2 Ml Vial) 4 mg IVPUSH Q8H PRN PRN Reason: Nausea and Vomiting Pharmacy Consult (Consult Rx Vancomycin Dosing) 1 each MISCELLANE DAILY PRN PRN Reason: Consult order Pregabalin (Pregabalin 150 Mg Capsule) 150 mg PO BID [facility] Last Admin: 06/21/25 09:10 Dose: 150 mg Documented By: GANGA Sodium Chloride (0.9 % Sodium Chloride Flush 3 Ml Syringe) 3 ml IVFLUSH QSHIFT [facility] Last Admin: 06/21/25 09:10 Dose: 3 ml Documented By: GANGA Spironolactone (Spironolactone 25 Mg Tablet) 25 mg PO DAILY [facility]; Protocol Last Admin: 06/21/25 09:19 Dose: Not Given Documented By: GANGA Non-Admin Reason: Physician Held Med Valsartan (Valsartan 160 Mg Tablet) 160 mg PO DAILY [facility] On Hold: 06/21/25 09:00 Vitamin D (Cholecalciferol (Vitamin D3) 25 Mcg Tablet) 25 mcg PO DAILY [facility] Last Admin: 06/21/25 09:10 Dose: 25 mcg Documented By: GANGA Labs 06/20/25 15:22 06/21/25 05:09 Labs: Laboratory Results - last 24 hr 06/20/25 06/21/25 22:55 05:09 Hold Purple Top SEE NOTE Estim Creat Clear Calc 83.7 Estimated GFR > 60 Urine Color Yellow Urine Appearance Clear Urine pH 6.0 Ur Specific [place] 1.010 Urine Protein 30 (1+) H Urine Glucose (UA) Negative Urine Ketones Negative Urine Blood Small (1+) H Urine Nitrite Negative Ur Leukocyte Esterase Small (1+) H Urine RBC 3-5 H Urine WBC 0-5 Ur Squamous Epith Cells 0-2 Urine Bacteria None Seen Hyaline Casts 3-5 Assessment and Plan (1) Sepsis: Status: Acute (2) Cellulitis of leg, right: Status: Acute Plan Pt is a 65-year-old female with a PMH significant for HTN, diet-controlled diabetes type 2, urinary retention with chronic Duncan, 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 Pt is admitted to the hospital for treatment and further evaluation of right lower extremity cellulitis with sepsis. Right lower extremity cellulitis with sepsis Met sepsis criteria with fever, tachycardia, and tachypnea; lactic acid WNL Improving Treated with vancomycin, day 2 Follow blood cultures Chronic bilateral foot ulcers S/p skin grafting by Dr. Lopez in April Do not appear grossly infected Wound care consult HTN Continue carvedilol, hydralazine, irbesartan Chronic lower extremity edema Continue furosemide, spironolactone HLD Continue statin, aspirin Diet-controlled diabetes type 2 On Mounjaro at home Diabetic diet GERD Continue PPI TONI On BiPAP at night Full Code DVT Prophylaxis: Lovenox Pt requires continued hospitalization for treatment of right lower extremity cellulitis with sepsis with IV antibiotics while awaiting blood cultures. Quality Stroke Does the patient have a stroke diagnosis?: No VTE Prior VTE?: No VTE Risk Level:: Medical - moderate - high VTE Device Contraindication: Treatment Not Indicated VTE Drug Contraindication: N/A - Med Ordered
[2025-06-21 18:58] VITALS: BP 128/59; PULSE 80; RESP 18; TEMP 36.7; O2SAT 93
[2025-06-22 03:52] VITALS: BP 129/60; PULSE 70; RESP 18; TEMP 36.4; O2SAT 95
[2025-06-22 06:43] LABS: Creatinine Clr Calc Pharmacy 95.4; Estimated Glomerular Filt Rate > 60
[2025-06-22 07:25] VITALS: BP 131/74; PULSE 70; RESP 20; TEMP 36.3; O2SAT 96
[2025-06-22] MEDS: 0.9 % Sodium Chloride Flush 3 ML SYRINGE IVFLUSH ×3 (08:32→20:51)
[2025-06-22] MEDS: Aspirin Enteric Coated 81 MG TABLET.DR PO (08:32)
--- NOTE | 2025-06-22 13:56 | P.PNIM_ITS ---
Subjective Subjective Date of Service: 06/22/25 Interval History: Vitals stable; no fever No acute events overnight Pt comfortable, reports doing well No fever/chills No lefg pain Review of Systems Review of Systems: Yes all other systems are reviewed and are negative Physical Exam 2 Exam: Exam: General: AOx3, no acute distress Resp: CTA bilaterally CVS: S1, S2, RRR GI: +BS, NT, no distention Skin: Warm, dry Neuro: Cranial nerves II-XII grossly intact bilaterally. Motor grossly intact bilaterally Extremities: Improved right lower extremity erythema, swelling, and warmth. Chronic bilateral foot wounds without overt signs of infection. Psych: Appropriate affect Vital Signs: Vital Signs: Last Vital Signs Temp 97.3 F 06/22/25 07:25 Pulse 70 06/22/25 07:25 Resp 20 06/22/25 07:25 BP 131/74 06/22/25 07:25 Pulse Ox 96 06/22/25 07:25 O2 Del Method Room Air 06/22/25 07:25 O2 Flow Rate 2 06/20/25 20:00 BMI result Body Mass Index 57.6 Objective Data Active Medications Acetaminophen (Acetaminophen 325 Mg Tablet) 650 mg PO Q6H PRN PRN Reason: Pain, Mild 1-3,fever,headache Aspirin (Aspirin Enteric Coated 81 Mg Tablet.) 81 mg PO DAILY [facility] Last Admin: 06/22/25 08:32 Dose: 81 mg Documented By: NAA Atorvastatin Calcium (Atorvastatin Calcium 20 Mg Tablet) 20 mg PO DAILY [facility] Last Admin: 06/22/25 08:32 Dose: 20 mg Documented By: NAA Calcium Carbonate (Calcium Carbonate 750 Mg Tab.Chew) 750 mg PO Q4H PRN PRN Reason: Heartburn Carvedilol (Carvedilol 6.25 Mg Tablet) 6.25 mg PO BID [facility]; Protocol Last Admin: 06/22/25 08:44 Dose: 6.25 mg Documented By: NAA Celecoxib (Celecoxib 200 Mg Capsule) 200 mg PO BID [facility] Last Admin: 06/22/25 08:32 Dose: 200 mg Documented By: NAA Doxazosin Mesylate (Doxazosin Mesylate 2 Mg Tablet) 16 mg PO BEDTIME [facility] Last Admin: 06/21/25 20:42 Dose: Not Given Documented By: BHAVANI Non-Admin Reason: Patient Refused Enoxaparin Sodium (Enoxaparin Sodium 40 Mg/0.4 Ml Syringe) 40 mg SUBCUT Q24H [facility] Last Admin: 06/21/25 20:24 Dose: 40 mg Documented By: BHAVANI Furosemide (Furosemide 40 Mg Tablet) 40 mg PO DAILY [facility]; Protocol Last Admin: 06/22/25 08:43 Dose: 40 mg Documented By: NAA Gabapentin (Gabapentin 300 Mg Capsule) 900 mg PO BEDTIME [facility] Last Admin: 06/21/25 20:24 Dose: 900 mg Documented By: BHAVANI Hydralazine HCl (Hydralazine Hcl 50 Mg Tablet) 50 mg PO BID [facility]; Protocol Last Admin: 06/22/25 08:44 Dose: 50 mg Documented By: NAA Vancomycin HCl 1,500 mg/ (Sodium Chloride) 500 mls @ 333.333 mls/hr IV Q24H [facility] Last Infusion: 06/21/25 22:45 Dose: Infused Documented By: BHAVANI Loperamide HCl (Loperamide Hcl 2 Mg Capsule) 2 mg PO Q4H PRN PRN Reason: Diarrhea Magnesium Hydroxide (Milk Of Magnesia 30 Ml Oral.Susp) 30 ml PO DAILY PRN PRN Reason: Constipation Magnesium Oxide (Magnesium Oxide 400 Mg Tablet) 400 mg PO DAILY [facility] Last Admin: 06/22/25 08:32 Dose: 400 mg Documented By: NAA Melatonin (Melatonin 3 Mg Tablet) 6 mg PO BEDTIME PRN PRN Reason: Insomnia Multivitamins/Vitamin C (Multivitamin Tablet) 1 tab PO DAILY [facility] Last Admin: 06/22/25 08:32 Dose: 1 tab Documented By: NAA Nystatin (Nystatin Powder 15 Gm Bottle) 1 appl TOPICAL BID PRN; Protocol PRN Reason: Rash Omeprazole (Omeprazole 20 Mg Capsule.Dr) 20 mg PO DAILY@0630 [facility] Last Admin: 06/22/25 05:37 Dose: 20 mg Documented By: BHAVANI Ondansetron HCl (Ondansetron Hcl 4 Mg/2 Ml Vial) 4 mg IVPUSH Q8H PRN PRN Reason: Nausea and Vomiting Pharmacy Consult (Consult Rx Vancomycin Dosing) 1 each MISCELLANE DAILY PRN PRN Reason: Consult order Pregabalin (Pregabalin 150 Mg Capsule) 150 mg PO BID [facility] Last Admin: 06/22/25 08:32 Dose: 150 mg Documented By: NAA Sodium Chloride (0.9 % Sodium Chloride Flush 3 Ml Syringe) 3 ml IVFLUSH QSHIFT [facility] Last Admin: 06/22/25 08:32 Dose: 3 ml Documented By: NAA Spironolactone (Spironolactone 25 Mg Tablet) 25 mg PO DAILY [facility]; Protocol Last Admin: 06/22/25 08:35 Dose: 25 mg Documented By: NAA Valsartan (Valsartan 160 Mg Tablet) 160 mg PO DAILY [facility] Last Admin: 06/22/25 08:44 Dose: 160 mg Documented By: NAA Vitamin D (Cholecalciferol (Vitamin D3) 25 Mcg Tablet) 25 mcg PO DAILY [facility] Last Admin: 06/22/25 08:32 Dose: 25 mcg Documented By: NAA Labs 06/20/25 15:22 06/22/25 06:18 Labs: Laboratory Results - last 24 hr 06/22/25 06/22/25 06:17 06:18 Hold Purple Top SEE NOTE Estim Creat Clear Calc 95.4 Estimated GFR > 60 Microbiology Microbiology Results: Microbiology 06/20/25 Unknown Urine Culture - Preliminary Urine Catheterized - Duncan Catheter Culture in progress. 06/20/25 15:37 Blood Culture - Preliminary Blood - Venous No growth after 24 hours. 06/20/25 15:37 Blood Culture - Preliminary Blood - Venous No growth after 24 hours. 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 Pt is admitted to the hospital for treatment and further evaluation of right lower extremity cellulitis with sepsis. Right lower extremity cellulitis with sepsis Met sepsis criteria with fever, tachycardia, and tachypnea; lactic acid WNL Improving Treated with vancomycin, day 3; will switch to doxy Blood cultures negative @24h Chronic bilateral foot ulcers S/p skin grafting by Dr. Lopez in April Do not appear grossly infected Wound care consult HTN Continue carvedilol, hydralazine, irbesartan Chronic lower extremity edema Continue furosemide, spironolactone HLD Continue statin, aspirin Diet-controlled diabetes type 2 On Mounjaro at home Diabetic diet GERD Continue PPI TONI On BiPAP at night Full Code DVT Prophylaxis: Lovenox Pt requires continued hospitalization for treatment of right lower extremity cellulitis with sepsis with IV antibiotics. Plan to discharge home tomorrow on doxy. Quality Stroke Does the patient have a stroke diagnosis?: No VTE Prior VTE?: No VTE Risk Level:: Medical - moderate - high VTE Device Contraindication: Treatment Not Indicated VTE Drug Contraindication: N/A - Med Ordered
[2025-06-22 15:43] VITALS: BP 111/51; PULSE 64; RESP 14; TEMP 36.1; O2SAT 93
--- NOTE | 2025-06-22 16:45 | HO.WOUND ---
Wound Consult: Initial 65yr old?[place] [facility] [place] See progress notes and H&P for detailed history.? Wound consult placed for Feet and buttock.? Patient agreeable to assessment and photo documentation.? Buttock Etiology: ?Chronic MASD (Moisture Associated Skin Damage) Wound Bed: intact blanchable purple tissue Edges: ? mirrored to buttock and perianal area Misti wound: ?Left buttock bruise not DTI / PI related seondary to a fall at home prior to admission No Induration, Fluctuance or Warmth noted Pain: denies Goals of Treatment: ? Off load pressure and barrier cream to protect from Moisture and friction Left Foot Right Foot Bilateral Feet Etiology: ??Unclear Etiology - Chronic Wound Bed: dried scabbed layer with some fluctuance noted - open tissue once cleansed Drainage / Odor: creamy sero sang - no odor noted Edges: ? well defined Misti wound: ?Right leg is red and swollen - cellultitis - No Induration, Fluctuance or Warmth noted Pain: denies Goals of Treatment: ? Iodoflex for moisture and biofilm distruption Recommendations: 1. Turn and Reposition every 2 hours and as needed for patient comfort.? Use pillows or wedges to support off loading positions. 2. Off Load all bony prominences with use of pillows and heel boots if needed.? Apply Preventative foams where needed. ? 3. Monitor for incontinence and moisture control, use barrier creams when needed for prevention and treatment. 4. Provide adequate and supplemental nutrition.? 5. Order low air loss mattress. 6. When applicable maintain blood glucose levels per Providers order. Buttock - Off Load Pressure with Q2 hr turns and use of pillows - Cleanse with PH balance spray or wipes, pat dry. ?Apply thin layer of barrier cream to affected area.? Apply twice daily and Reapply thin layer PRN after each episode of incontinence. Bilateral Feet - Elevate heels off of bed surface with pillows.? Float heels off of pillows.? Cleanse with saline, pat dry. ?Apply Iodosorb / Iodoflex to wound bed cover with gauze and tape. ?Change every other day.?? Iodoflex left at bedside. Note the Iodoflex will be applied brown and over the course of time as the Iodine is absorbed into the wound bed the color will change to yellow / cream signifying time to replace.?? At time of discharge patient should continue Iodoflex until out pt follow up with wound clinic. ?Iodoflex can be obtained from Wound Care Nurse / Office this is not stocked on the units. Re-consult wound care Nurse for wound deterioration or wound changes.
[2025-06-22 20:00] VITALS: BP 125/59; PULSE 67; RESP 14; TEMP 36.4; O2SAT 94
[2025-06-23 03:10] VITALS: BP 126/59; PULSE 62; RESP 18; TEMP 36.1; O2SAT 96
[2025-06-23 07:56] VITALS: BP 122/63; PULSE 68; RESP 18; TEMP 36; O2SAT 95
[2025-06-23] MEDS: Aspirin Enteric Coated 81 MG TABLET.DR PO (09:03)
[2025-06-23] MEDS: 0.9 % Sodium Chloride Flush 3 ML SYRINGE IVFLUSH (09:03)
--- NOTE | 2025-06-23 11:59 | PM.DS ---
DS: Providers Provider Date of Service: 06/23/25 Date of admission: 06/20/25 17:08 Date of discharge: 06/23/25 Primary care physician: Yolanda Jack MD Consults: 06/20/25 19:26 Consult to Wound Care Routine Reason for consultation: Chronic bilateral foot ulcers DS: Diagnosis Discharge Diagnosis (1) Cellulitis of leg, right: Status: Acute (2) Sepsis: Status: Acute DS: Summary Hospital Course Hospital Course: From admission HPI: Date of Service: 06/20/25 Attending physician on admission: Kaitlyn Atwood Chief Complaint: Right leg redness Pt is a 65-year-old female with a PMH significant for HTN, diet-controlled diabetes type 2, urinary retention with chronic Duncan, 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 Pt was being seen by [facility] earlier in the morning for wound care, when nurse noticed a new rash on her right leg concerning for cellulitis. Pt herself does not know when the rash started, but reports for the past 2 days has had subjective fever and chills, as well as feeling generally weak with reduced appetite and increased fatigue. No SOB or difficulty breathing. Denies chest pain/pressure, palpitations. No nausea, vomiting, diarrhea, or abdominal pain. In the ED pt was febrile at 01:02 0.9, tachypneic at 22, an elevated HR of 98. Labs were significant for mild leukocytosis of 11.3, ESR 83, AST 37, CRP 21.70, procalcitonin 0.23, and lactic acid WNL at 1.0. CXR was unremarkable. Right lower extremity venous duplex negative for DVT. EKG demonstrated normal sinus rhythm with sinus arrhythmia, similar to prior. Pt was treated in the ED with acetaminophen, IVF, ceftriaxone, and vancomycin. Pt is admitted to the hospital for treatment and further evaluation of right lower extremity cellulitis with sepsis. Hospital course: Pt was admitted to the hospital for right leg cellulitis meeting sepsis criteria. Patient's hospital stay was uncomplicated. She was treated with IV antibiotics: Initially vancomycin which was then transitioned to doxycycline. Pt responded well to therapy with significant reduction and right lower extremity erythema and swelling. Fevers were never redemonstrated on the hospital floor. Currently pt feels well without any significant acute medical complaints. Is agreeable with plan of discharge. Pt will be discharged home with her normal [facility] services on oral antibiotics: Doxycycline 100 mg b.i.d. x7 days. For chronic wounds, was seen and evaluated by wound care who recommended: Buttock - Off Load Pressure with Q2 hr turns and use of pillows - Cleanse with PH balance spray or wipes, pat dry. ?Apply thin layer of barrier cream to affected area.? Apply twice daily and Reapply thin layer PRN after each episode of incontinence. Bilateral Feet - Elevate heels off of bed surface with pillows.? Float heels off of pillows.? Cleanse with saline, pat dry. ?Apply Iodosorb / Iodoflex to wound bed cover with gauze and tape. ?Change every other day.?? Iodoflex left at bedside. Note the Iodoflex will be applied brown and over the course of time as the Iodine is absorbed into the wound bed the color will change to yellow / cream signifying time to replace.?? At time of discharge patient should continue Iodoflex until out pt follow up with wound clinic. ?Iodoflex can be obtained from Wound Care Nurse / Office this is not stocked on the units. For hypertension continue carvedilol, hydralazine, and irbesartan For chronic lower extremity edema continue furosemide and spironolactone For hyperlipidemia continue statin and aspirin For diet-controlled type 2 diabetes continue Mounjaro and adhere to a diabetic diet For GERD continue omeprazole For TONI continue BiPAP at night Time Attestation Discharge Coordination Time (in mins): 40 Quality: Safe Use of Opioids Does Pt have an Active Cancer Diagnosis on the Problem List?: No Quality: Stroke Does the patient have a stroke diagnosis?: No Physical Exam Exam: Exam: General: AOx3, no acute distress Resp: CTA bilaterally CVS: S1, S2, RRR GI: +BS, NT, no distention Skin: Warm, dry Neuro: Cranial nerves II-XII grossly intact bilaterally. Motor grossly intact bilaterally Extremities: Right lower extremity erythema, swelling, and warmth significantly improved. Bilateral feet covered in clean dressing. Psych: Appropriate affect Vital Signs: Vital Signs: Last Vital Signs Temp 96.8 F 06/23/25 07:56 Pulse 68 08/14/25 07:56 Resp 18 06/23/25 07:56 BP 122/63 06/23/25 07:56 Pulse Ox 95 06/23/25 07:56 O2 Del Method Room Air 06/23/25 07:56 O2 Flow Rate 2 06/20/25 20:00 BMI result Body Mass Index 57.6 DS: Data Data Completed and Pending Labs on day of discharge: Laboratory Results - last 24 hr 06/22/25 18:26 Random Vancomycin 9.0 L Preliminary micro results at discharge 06/20/25 Unknown Urine Culture - Preliminary Urine Catheterized - Duncan Catheter Enterococcus/Streptococcus sp 06/20/25 15:37 Blood Culture - Preliminary Blood - Venous No growth after 48 hours. 06/20/25 15:37 Blood Culture - Preliminary Blood - Venous No growth after 48 hours. Discharge Plan Discharge Anticipated Discharge Date/Time: 06/23/25 11:50 Patient Disposition: Home Health Service Discharge Diagnosis: Left leg cellulitis with sepsis Referrals: Sarah GO [Outside] - 1 Week Yolanda Jack MD [Primary Care Provider, Internal Medicine] - 1 Week Discharge Medications: New doxycycline monohydrate 100 mg capsule 100 mg PO BID Qty: 15 0RF Rx Instructions: Take one capsule daily with food for the next 7 days, ending on 06/30. Begin taking medication this evening (06/23). Complete full course of antibiotics. Continued (DME) Bardex All-Silicone Duncan Cath 20 Fr misc See Rx Instructions .Route Qty: 12 0RF Rx Instructions: As directed spironolactone 25 mg tablet 25 mg PO DAILY Qty: 90 3RF pregabalin 150 mg capsule 150 mg PO BID Qty: 180 3RF celecoxib 200 mg capsule 200 mg PO BID Qty: 180 3RF nystatin [Nystop] 100,000 unit/gram powder 1 appl topical BID PRN (Reason: Rash) Mounjaro 5 mg/0.5 mL pen injector 5 mg subcut MO Patient Comments: patient takes every Friday terazosin 10 mg capsule 20 mg PO BEDTIME rosuvastatin 10 mg tablet 10 mg PO DAILY cholecalciferol (vitamin D3) 25 mcg (1,000 unit) capsule 25 mcg PO DAILY omega 3-[id number]-zxl-fish oil [Fish Oil] 1,000 mg (120 mg-180 mg) capsule 1 cap PO BID aspirin 81 mg tablet,delayed release (DR/EC) 81 mg PO DAILY magnesium oxide 500 mg capsule 500 mg PO DAILY omeprazole 20 mg capsule,delayed release(DR/EC) 20 mg PO DAILY@0630 multivitamin Tablet 1 tab PO DAILY acetaminophen 650 mg tablet extended release 1,300 mg PO Q12H Acidophilus Capsule 1,000 mmu cells PO DAILY carvedilol 6.25 mg tablet 6.25 mg PO BID Qty: 180 3RF furosemide 40 mg tablet 40 mg PO DAILY Qty: 90 3RF gabapentin 300 mg capsule 900 mg PO BEDTIME Qty: 270 3RF hydralazine 50 mg tablet 50 mg PO BID Qty: 180 3RF irbesartan 300 mg tablet 300 mg PO DAILY Qty: 90 3RF Discharge Orders: Discharge Order (Routine); Ordered 06/23/25 Ordered By: Anna Catalan Activity on Discharge: As tolerated Stand Alone Forms: Patient Portal Discharge page Print Language: Yakut Care Plan Goals: See below Health Concerns: Cellulitis Sepsis Plan of Treatment: -- You were admitted to the hospital for right leg cellulitis meeting sepsis criteria. You were treated with IV antibiotics with good response. You will be discharged on oral antibiotics. -- Take doxycycline 100 mg twice a day with food for the next 7 days. Begin taking this evening and take full course of antibiotics; end date 06/30. -- Follow up outpatient with PCP in 1 week for routine post-hospitalization follow up. -- Resume all other home medications -- You were also seen and evaluated by wound care for chronic feet and buttock wounds with the following recommendations: Buttock - Off Load Pressure with Q2 hr turns and use of pillows - Cleanse with PH balance spray or wipes, pat dry. ?Apply thin layer of barrier cream to affected area.? Apply twice daily and Reapply thin layer PRN after each episode of incontinence. Bilateral Feet - Elevate heels off of bed surface with pillows.? Float heels off of pillows.? Cleanse with saline, pat dry. ?Apply Iodosorb / Iodoflex to wound bed cover with gauze and tape. ?Change every other day.?? Iodoflex left at bedside. Note the Iodoflex will be applied brown and over the course of time as the Iodine is absorbed into the wound bed the color will change to yellow / cream signifying time to replace.?? At time of discharge patient should continue Iodoflex until out pt follow up with wound clinic. ?Iodoflex can be obtained from Wound Care Nurse / Office this is not stocked on the units. Assessment: See discharge summary Patient Instructions: Doxycycline (By mouth), Cellulitis (GEN) Discharge Date/Time: 06/23/25 15:09
--- NOTE | 2025-06-23 13:07 | MHC.CM.PN ---
PT REPORTS SHE LIVES ALONE AND HAS 11 HOURS PER WEEK OF [employer] AND [facility] FOR WOUND ANF F/C CARE SHE REPORTS SHE USES A W/C AND POWER CHAIR WHEN GOING OUT, SHE IS ABLE TO TRANSFER INDEPENDENTLY USING A ROLLATOR SHE [facility] [facility] PT IS AWARE SHE WILL DC HOME TODAY SHE HAS BEEN IN CONTACT WITH HER DIRECTOR OF DIGITAL TECHNOLOGY WHO WILL SEE HER THIS AFTERNOON [facility] NOTIFIED OF DC [facility] B[facility] TRANSPORT BOOKED FOR 1400 HOURS [facility]IA [facility]
[2025-06-23 15:01] VITALS: BP 131/58; PULSE 73; RESP 18; TEMP 36.4; O2SAT 95
== END 2025-06-23 15:09 | disposition home health service (06) | DRG 872 ==
LOC: HO.ED 15:54 → HO.EDOVER 17:21 → HO.S3 17:52
PROVIDERS: Physician Assistant; Admitting Provider Student in an Organized Health Care Education/Training Program; Emergency Provider Emergency Medicine; PCP Internal Medicine; Visit Provider Student in an Organized Health Care Education/Training Program
DX: A41.9 Sepsis, unspecified organism (principal); L03.115 Cellulitis of right lower limb; Z68.43 Body mass index [BMI] 50.0-59.9, adult; I10 Essential (primary) hypertension; K21.9 Gastro-esophageal reflux disease without esophagitis; G47.33 Obstructive sleep apnea (adult) (pediatric); E11.621 Type 2 diabetes mellitus with foot ulcer; L97.529 Non-pressure chronic ulcer of other part of left foot with unspecified severity; L97.519 Non-pressure chronic ulcer of other part of right foot with unspecified severity; E66.813 Obesity, class 3; Z71.3 Dietary counseling and surveillance; Z96.0 Presence of urogenital implants; Z99.3 Dependence on wheelchair; Z20.822 Contact with and (suspected) exposure to COVID-19; Z79.82 Long term (current) use of aspirin; Z79.899 Other long term (current) drug therapy
CPT/HCPCS: 36415; 71045; 80048; 80076; 80202; 81001; 82565; 83605; 83735; 83880; 84145; 84484; 85025; 85652; 86140; 87040; 87086; 87088; 87186; 87637; 93005; 93971; 94660; 99285; J0696; J1271; J1650; J3373; J3374; J7120

== ENCOUNTER → 2025-06-20 15:00 | Outpatient (BNV) | payer MEDICARE, OTHER, SELFPAY | PROVIDERS: Emergency Provider Emergency Medicine; PCP Internal Medicine; Visit Provider Radiology Diagnostic Radiology | DX: R22.41 Localized swelling, mass and lump, right lower limb (principal); R53.1 Weakness; R53.83 Other fatigue | CPT/HCPCS: 71045; 93971 ==

== ENCOUNTER → 2025-06-20 15:00 | Outpatient (BNV) | payer MEDICARE, OTHER, SELFPAY | PROVIDERS: Admitting Provider Student in an Organized Health Care Education/Training Program; Emergency Provider Emergency Medicine; PCP Internal Medicine; Visit Provider Internal Medicine Cardiovascular Disease | DX: R53.1 Weakness (principal) | CPT/HCPCS: 93010 ==

== ENCOUNTER → 2025-06-20 17:08 | Outpatient (BNV) | payer MEDICARE, OTHER, SELFPAY | PROVIDERS: Admitting Provider Student in an Organized Health Care Education/Training Program; Emergency Provider Emergency Medicine; PCP Internal Medicine; Visit Provider Student in an Organized Health Care Education/Training Program | DX: L03.115 Cellulitis of right lower limb (principal) | CPT/HCPCS: 99223; 99233 ==

== ENCOUNTER 2025-07-27 12:51 | Inpatient (IN) | payer MEDICARE, OTHER, SELFPAY ==
--- OUTSIDE RECORDS SUMMARY | 2025-01-10 05:15 | XMS_ITS ---
Author Organization [facility] Address [address] [facility] [place] [address] Care Team Providers Care Superintendent Stevedoring Name Role Phone Yolanda Jack MD Primary Care Provider Unavaila apolinar Enoc Dickensmie Unavailable [phone] Allergies Allergen (clinical drug ingredient) Drug/Non Drug [...] Active Encounters Encounter Location Date Provider Diagnosis [facility] [address] [address] 01/10/2025 Julee Maninder Plan Of Treatment Next Appt Details Provider Name:Julee A Maninder , 09/01/2025 11:00:00 AM, [address] [place] [address], [phone], Progress Notes * Gina MCCULLOUGH MDOB:[birth year] (65 yo F)Acc No.[id number]:01/10/2025 Progress Note Patient: Gina WEBB Provider: Vipul Dickens DPM :1960 A ge:64 Y S ex:Female Date:01/10/2025 Address:[facility] [address] , [address], [place] Pcp:Yolanda Jack MD Subjective: * Chief Complaints: [...] Date: 01/10/2025 Generated for Wilder ibarra/Cuong/Gabriella on: 07/27/2025 05:59 PM EDT
--- OUTSIDE RECORDS SUMMARY | 2025-02-21 11:15 | XMS_ITS ---
Author Organization [facility] Address [address] [place] [address] Care Team Providers Care Auxiliary Power Equipment Operator Name Role Phone Yolanda Jack MD Primary Care Provider Unavaila apolinar ManinderJulee Unavailable [phone] Encounters Encounter Location Date Provider Diagnosis [address] [address] 02/21/2025 Julee Maninder Plan Of Treatment Next Appt Details Provider Name:Julee Dickens , 09/01/2025 11:00:00 AM, [address] [place] [address], [phone], Progress Notes * Gina MCCULLOUGH MDOB:[birth year] (65 yo F)Acc No.[id number]:02/21/2025 Progress Note Patient: Nic Gina BARBOSA Provider: Vipul Dickens DPM :1960 A ge:64 Y S ex:Female Date:02/21/2025 Address:[address], [id number] Pcp:Yolanda Jack MD Subjective: * Chief Complaints: [...] 02/21/2025 Generated for Wilder ibarra/Cuong/Gabriella on: 0 07/27/2025 05:59 PM EDT
[2025-07-27] VITALS (8 sets, daily range): BP systolic 92–144; BP diastolic 53–78; PULSE 87–103; RESP 16–20; TEMP 36.5–38.2; O2SAT 94–97; BMI 50.6
--- NOTE | ~2025-07-27 | XR_ITS ---
EXAMINATION: XR FOOT 3 OR MORE VIEWS RIGHT HISTORY: r/o osteo COMPARISON: Comparison is made with the prior examination dated 06/11/2023. FINDINGS: Three views of the right foot are submitted. The bones are markedly osteopenic. There is a possible focal lucency in the 1st metatarsal head. There is no fracture or dislocation. There is moderate degenerative change of the 1st MTP joint. There is diffuse soft tissue swelling. XR/XR foot RT min 3V IMPRESSION: Limited examination due to marked osteopenia. Diffuse soft tissue swelling. Possible focal lucency in the 1st metatarsal head. If there is clinical concern for osteomyelitis, MRI is recommended. Electronically signed by: Renan Bautista MD 08/01/2025 02:27 PM EDT
--- NOTE | ~2025-07-27 | US_ITS ---
EXAMINATION: US LOWER EXTREMITY VEINS BILATERAL HISTORY: leg cellulitis. pain r/o DVT COMPARISON: There are no prior studies available for comparison. TECHNIQUE: Duplex and color Doppler sonographic examination of the deep venous system of the bilateral lower extremities was performed. FINDINGS: The right common femoral, superficial femoral, and popliteal veins are patent demonstrating normal compressibility, spontaneous flow, and augmentation. There is a normal color and spectral Doppler waveform appearance of the visualized deep venous system above the knee. The posterior tibial and peroneal veins are patent. The left common femoral, superficial femoral, and popliteal veins are patent demonstrating normal compressibility, spontaneous flow, and augmentation. There is a normal color and spectral Doppler waveform appearance of the visualized deep venous system above the knee. The posterior tibial and peroneal veins are patent. US/US venous duplex LE BI IMPRESSION: No evidence of acute DVT in the bilateral lower extremities. Electronically signed by: Renan Bautista MD 07/29/2025 07:05 AM EDT
--- NOTE | ~2025-07-27 | XR_ITS ---
EXAMINATION: XR TIBIA AND FIBULA, RIGHT CLINICAL INFORMATION: Right leg cellulitits. ostoe? COMPARISON: None available. TECHNIQUE: AP and lateral views of the right tibia and fibula were obtained. FINDINGS: There is severe narrowing of the medial joint space and marginal osteophytes. There is periosteal new bone formation along the fibular diaphysis, nonspecific finding. There is a reticulated appearance of subcutaneous soft tissues consistent with edema. There is juxta-articular osteopenia around the ankle joint. XR/XR tibia fibula RT 2V IMPRESSION: There is periosteal new bone formation along the fibular diaphysis which is a nonspecific finding. Severe osteoarthritis is present in the right knee. Nonspecific juxta-articular osteopenia involving the ankle. Soft tissue edema. Electronically signed by: Parth Bond MD 07/27/2025 02:08 PM EDT
--- NOTE | ~2025-07-27 | MR_ITS ---
CLINICAL HISTORY: Right foot - question infection MR of the right foot before and after contrast administration. No prior MR. Findings: There is prominent ill-defined soft tissue edema consistent with cellulitis. There are small ankle and subtalar joint effusions. There is severe diffuse muscle atrophy. Question previous bunionectomy. There is metatarsus primum varus and hallux valgus. There is a small amount of ill-defined edema in the 1st metatarsal head. This is indeterminate. No abscess is seen. Impression: Mild ill-defined edema in the 1st metatarsal head may be incidental. Early osteomyelitis is technically a possibility follow-up as clinically warranted. Other findings as above. This document has been electronically signed by: Obed Linares MD on 08/01/2025 20:54:15
--- NOTE | 2025-07-27 13:17 | ED.GENADULT ---
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 Lopez, presenting to the emergency department today with a recurrence of right lower leg cellulitis. Patient states that her right lower leg has began hurting, is swollen, and red. Patient states that she has felt generally unwell with fevers at home. Patient denies any other complaints at this time. Related Data Home Medications ?Medication ?Instructions ?Recorded ?Confirmed aspirin 81 mg tablet,delayed 81 mg PO DAILY 09/15/20 07/27/25 release cholecalciferol (vitamin D3) 25 25 mcg PO DAILY 09/15/20 07/27/25 mcg (1,000 unit) capsule magnesium oxide 500 mg capsule 500 mg PO DAILY 09/15/20 07/27/25 omega 4-exv-mlt-fish oil 1,000 mg 1 cap PO BID 09/15/20 07/27/25 (120 mg-180 mg) capsule (Fish Oil) acetaminophen 650 mg 1,300 mg PO Q12H 01/01/22 07/27/25 tablet,extended release multivitamin 1 tab PO DAILY 01/01/22 07/27/25 omeprazole 20 mg capsule,delayed 20 mg PO DAILY@0630 01/01/22 07/27/25 release Lactobacillus acidophilus 1,000 mmu cells PO DAILY 01/03/25 07/27/25 (Acidophilus capsule) rosuvastatin 10 mg tablet 10 mg PO DAILY 04/07/25 07/27/25 terazosin 10 mg capsule 20 mg PO BEDTIME 04/07/25 07/27/25 nystatin 100,000 unit/gram topical 1 appl topical BID PRN Rash 06/20/25 07/27/25 powder (Nystop) tirzepatide 7.5 mg/0.5 mL 7.5 mg subcut MO 07/27/25 07/27/25 subcutaneous pen injector (Mounjaro) Previous Rx's ?Medication ?Instructions ?Recorded catheter 20 Fr (Bardex #12 ea 01/24/22 All-Silicone Heredia Catheter) spironolactone 25 mg tablet 25 mg PO DAILY #90 tabs 08/24/24 carvedilol 6.25 mg tablet 6.25 mg PO BID #180 tabs 10/28/24 furosemide 40 mg tablet 40 mg PO DAILY #90 tabs 10/28/24 gabapentin 300 mg capsule 900 mg (3 x 300 mg) PO BEDTIME 10/28/24 #270 caps hydralazine 50 mg tablet 50 mg PO BID #180 tabs 10/28/24 irbesartan 300 mg tablet 300 mg PO DAILY #90 tabs 10/28/24 pregabalin 150 mg capsule 150 mg PO BID #180 caps 02/03/25 celecoxib 200 mg capsule 200 mg PO BID #180 caps 02/15/25 Allergies Allergy/AdvReac Type Severity Reaction Status Date / Time Adhesive Bandages Allergy Unknown rash Verified 07/27/25 13:04 adhesive tape (TAPE,ADHESIVE) Allergy Unknown RASH Verified 07/27/25 13:04 amlodipine Allergy Unknown edema Verified 07/27/25 13:04 atenolol Allergy Unknown Bradycardia Verified 07/27/25 13:04 bisoprolol (From Zebeta) Allergy Unknown Diarrhea Verified 07/27/25 13:04 labetalol Allergy Unknown n/a Verified 07/27/25 13:04 latex (LATEX) Allergy Unknown RASH Verified 07/27/25 13:04 metformin AdvReac Intermediate Diarrhea Verified 07/27/25 13:04 semaglutide (From Ozempic) AdvReac Intermediate Diarrhea Verified 07/27/25 13:04 vicodin Allergy Unknown heart Uncoded 06/02/25 15:09 palpitation actos AdvReac Intermediate Abdominal Uncoded 06/02/25 15:09 Pain Review of Systems Constitutional: Constitutional: Reports as per HPI Eyes: Eyes: Reports as per HPI ENT: Reports as per HPI Cardiovascular: Cardiovascular: Reports as per HPI Respiratory: Respiratory: Reports as per HPI Gastrointestinal: Gastrointestinal: Reports as per HPI Genitourinary: Genitourinary: Reports as per HPI Musculoskeletal: Musculoskeletal: Reports as per HPI Integumentary/Breasts: Skin/Breast: Reports as per HPI Neurologic: Reports as per HPI Psychiatric: Psychiatric: Reports as per HPI Endocrine: Endocrine: Reports as per HPI Hematologic/Lymphatic: Hematologic/Lymphatic: Reports as per HPI Allergic/Immunologic: Allergic/Immunologic: Reports as per HPI [facility] Past Medical History Attestation statement: The following information was validated with the patient. Source: old records reviewed and nursing notes reviewed Medical History Scoliosis Arthritis Diabetes GERD (gastroesophageal reflux disease) Numbness Elevated cholesterol Bowel incontinence Chronic indwelling Heredia catheter Osteomyelitis Bunion of right foot TONI (obstructive sleep apnea) Hyperglycemia Morbid obesity Foot callus Neuropathy Edema Urinary retention Plantar fasciitis Obesity Osteoarthritis Spinal stenosis Hypertension Surgical History Hx of skin graft (04/14/25) History of esophagogastroduodenoscopy (EGD) Hx of ligation of vein History of carpal tunnel surgery H/O foot surgery History of tonsillectomy H/O colonoscopy History of lumbar surgery Family History Family History Father History of heart attack Mother HTN (hypertension) Stroke Brother Stomach cancer Brother History of heart attack HTN (hypertension) Diabetes mellitus Lung cancer Brother Bladder cancer Heart attack Social History Social History Household Members: None Housing: Condominium Are you a primary care associate to a significant other at home: No Do you presently have visiting nurse or other home services: Yes Alcohol intake: never Patient Tobacco Use Status: Never used Tobacco e-Cigarette/Vaping Use: Never Used Second Hand Smoke Exposure: No service: No Current occupational status: disabled Current occupation: right hand dominant Cognitive needs: No Hearing needs: No Vision needs: Yes Physical Exam ED Vital Signs: Vital Signs - 24 hr 07/27/25 13:02 07/27/25 14:45 Temperature 100.8 F H 99.2 F Pulse Rate 103 H 102 H Respiratory Rate 18 16 Blood Pressure 139/78 124/61 Pulse Oximetry 94 95 Oxygen Delivery Method Room Air Room Air BMI result Body Mass Index 50.6 Const General: cooperative, no acute distress, alert and awake Nutritional Appearance: well nourished Orientation/consciousness: patient oriented x3 HENMT Head: Yes normal to inspection and Yes atraumatic Ears: hearing grossly normal bilaterally and external ears normal General nose exam: Normal external nose present, no nasal discharge noted and no epistaxis Face and sinus: Yes normal facial exam, No abrasion and No laceration Mouth: Normal oral and palatal mucosa present, no drooling and no muffled voice Eyes General: appearance normal, both eyes and all related structures Periorbital: periorbital findings normal Eyelids: Yes eyelids normal Conjunctivae: conjunctivae normal Pupils: Equal, round and reactive pupils present EOM: EOMs intact bilaterally Neck Neck: Yes normal visual inspection and Yes full ROM Resp Effort & Inspection: normal respiratory effort and able to speak in complete sentences Other: chronic heredia catheter in place - draining Neuro General: patient oriented x3, moves all extremities and CN's II-XI intact bilaterally Cranial nerves: Yes Equal, round and reactive pupils present Cognition (Neuro): normal cognition Extrem Other: General: Yes full ROM and Yes capillary refill normal Psych Appearance: grossly normal Mental Status: mental status grossly normal Affect: normal affect Attitude: cooperative Thought process: Normal thought process present Thought content: Normal thought content present Insight: Good insight present (Psych) Course Course Course Narrative: RME: 65-year-old female presents to ED for right leg cellulitis. Patient was referred by wound clinic for treatment. Labs x-ray ordered Medications Administered Generic Name Dose Route Start Last Admin Trade Name Freq PRN Reason Stop Dose Admin Acetaminophen 975 mg 07/27/25 19:00 07/27/25 18:45 Acetaminophen 325 Mg Tablet PO 975 mg Q12H PRISCILLA Administration Doxazosin Mesylate 16 mg 07/27/25 21:00 07/27/25 22:14 Doxazosin Mesylate 2 Mg Tablet PO 16 mg BEDTIME PRISCILLA Administration Enoxaparin Sodium 40 mg 07/27/25 19:00 07/27/25 18:46 Enoxaparin Sodium 40 Mg/0.4 Ml Syringe SUBCUT 40 mg Q24H PRISCILLA Administration Gabapentin 900 mg 07/27/25 21:00 07/27/25 22:15 Gabapentin 300 Mg Capsule PO 900 mg BEDTIME PRISCILLA Administration Hydralazine HCl 50 mg 07/27/25 21:00 07/27/25 22:16 Hydralazine Hcl 50 Mg Tablet PO 50 mg BID PRISCILLA Administration Protocol Piperacillin Sod/Tazobactam 50 mls @ 100 mls/hr 07/27/25 21:00 07/27/25 22:29 Sod 3.375 gm/ Sodium Chloride IV 100 mls/hr Q6H PRISCILLA Administration Lactated Ringer's 1,000 mls @ 80 mls/hr 07/27/25 16:30 07/27/25 18:03 Lr IVCONT 80 mls/hr .[id number] PRISCILLA Infusion Insulin Human Lispro 0 unit 07/27/25 21:00 07/27/25 22:25 Insulin Lispro 100 Unit/Ml 3 Ml Vial SUBCUT Not Given [facility] Protocol Pregabalin 150 mg 07/27/25 21:00 07/27/25 22:16 Pregabalin 150 Mg Capsule PO 150 mg BID PRISCILLA Administration Discontinued Medications Generic Name Dose Route Start Last Admin Trade Name Freq PRN Reason Stop Dose Admin Piperacillin Sod/Tazobactam 50 mls @ 100 mls/hr 07/27/25 14:16 07/27/25 15:14 Sod 3.375 gm/ Sodium Chloride IV 07/27/25 14:45 Infused ONCE ONE Infusion Vancomycin HCl 2,000 mg in 500 mls @ 250 mls/hr 07/27/25 14:30 07/27/25 17:43 Vancomycin/Ns IV 07/27/25 16:29 Infused ONCE ONE Infusion Ibuprofen 600 mg 07/27/25 13:04 07/27/25 13:06 Ibuprofen 600 Mg Tablet PO 07/27/25 13:05 600 mg ONCE ONE Administration Medical Decision Making Medical Decision Making [facility] Narrative: Patient is a 65 year old assigned female at with a history of being wheelchair bound at baseline, DM, HTN, TONI, urinary retention with chronic heredia, 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 Lopez, presenting to the emergency department today with a recurrence of right lower leg cellulitis. Patient's physical exam was as noted in the physical exam portion of this note and consistent with right upper leg cellulitis. Patient was tachycardic and febrile. Patient's blood work showed an elevated WBC count of 17.3, ESR of 45, and CRP of 3.89. I was suspicious of sepsis at 1430. Patient was given vancomycin + zosyn. I spoke to the hospitalist team who agreed to admission for continued IV antibiotics. I explained my physical exam findings as well as all test results to the patient. I answered all questions asked by the patient. Patient verbalized agreement and understanding with this treatment plan and admission. Differential Diagnosis Differential Diagnoses: The differential diagnosis associated with the presentation includes Cellulitis Sepsis Leg pain Admission/Observation Consideration of admission/observation: Escalation of care including admission/observation considered Patient admitted as noted in the MDM Rationale portion of this note. Consult Healthcare Provider Management of the patient was discussed with: Hospitalist (agreed to admission as noted in the MDM Rationale portion of this note. ) Lab Data [facility] Lab Attestation statement: I reviewed the patient's lab results. My interpretation of these results are in the MDM Rationale portion of this note. 07/27/25 13:30 07/27/25 13:30 Labs: Lab Results 07/27/25 Range/Units 13:30 WBC 17.3 H (4.8-10.8) X10*3/uL RBC 4.05 L (4.20-5.50) X10*6/uL Hgb 11.1 L (12.0-16.0) g/dl Hct 34.6 L (37.0-47.0) % MCV 85.4 (80.0-98.0) fL MCH 27.4 (27.0-33.0) pg MCHC 32.1 (31.0-35.0) g/dl RDW 17.0 H (11.0-16.0) % Plt Count 249 D (160-400) X10*3/uL MPV 10.5 (9.4-12.3) fL Immature Gran % (Auto) 0.5 H (0.0-0.4) % Neut % (Auto) 88.9 H (45-73) % Lymph % (Auto) 5.3 L (20-40) % Kerr % (Auto) 4.9 (2-11) % Eos % (Auto) 0.2 (0-4) % Baso % (Auto) 0.2 (0-2) % Lymph # (Auto) 0.9 L (1.2-4.9) X10*3/uL Kerr # (Auto) 0.9 (0.1-1.2) X10*3/uL Eos # (Auto) 0.0 (0.0-0.4) X10*3/uL Baso # (Auto) 0.0 (0.0-0.2) X10*3/uL Abs Immat Gran (auto) 0.09 H (0.00-0.03) X10*3/uL Absolute Neuts (auto) 15.4 H (2.0-8.3) x10*3/uL Absolute Nucleated RBC 0.000 (0.0-0.012) X10*3/uL Nucleated RBC % (auto) 0.0 (0.0-0.2) /100WBC ESR 45 H (0-20) MM/HR Sodium 138 (135-145) mmol/L Potassium 4.5 (3.3-5.1) mmol/L Chloride 101 (96-108) mmol/L Carbon Dioxide 29 (22-29) mmol/L Anion Gap 13 (12-20) BUN 24 H (9-16) mg/dL Creatinine 0.93 (0.5-1.4) mg/dL Estim Creat Clear Calc 83.3 Estimated GFR > 60 Random Glucose 171 H (60-115) mg/dL Lactic Acid 1.9 (0.5-2.0) mmol/L Calcium 9.8 D (8.4-10.2) mg/dL Total Bilirubin 0.6 (0.0-1.0) mg/dL AST 22 (5-31) U/L ALT 24 (0-31) U/L Alkaline Phosphatase 104 (39-117) U/L C-Reactive Protein 3.89 H (< or = 0.50) mg/dL Total Protein 7.7 (6.5-8.0) g/dL Albumin 4.2 (3.5-5.0) g/dL Chronic Conditions Patient?s care impacted by: Diabetes Critical Care Time Critical Care Time Critical Care Time: Yes Total Critical Care Time: 38 Attestation: I spent 38 minutes of Critical Care Time with this patient. This does not include time spent on separately reported billable procedures. Discharge Plan Discharge Clinical Impression: Cellulitis Qualifiers: Site of cellulitis: extremity Site of cellulitis of extremity: lower extremity Laterality: right Qualified Code(s): L03.115 - Cellulitis of right lower limb Sepsis Qualifiers: Sepsis type: sepsis due to unspecified organism Sepsis acute organ dysfunction status: without acute organ dysfunction Qualified Code(s): A41.9 - Sepsis, unspecified organism Patient Disposition: Admitted As Inpatient Interventions: Admission Worksheet (ED) Last Done: 07/27/25 20:09 Discharge Date/Time: 07/27/25 21:30
[2025-07-27 13:45] LABS: MANUAL DIFF FLAG NO
[2025-07-27 13:46] LABS: Hematocrit 34.6 % (37.0-47.0); Hemoglobin 11.1 g/dl (12.0-16.0); Imm Gran Abs Auto 0.09 X10*3/uL (0.00-0.03); Imm Gran Pct Auto 0.5 % (0.0-0.4); Lymphocytes Absolute Auto 0.9 X10*3/uL (1.2-4.9); Mean Corpuscular HGB Conc 32.1 g/dl (31.0-35.0); Mean Corpuscular Hemoglobin 27.4 pg (27.0-33.0); Mean Corpuscular Volume 85.4 fL (80.0-98.0); NRBC Abs Auto 0.000 X10*3/uL (0.0-0.012); NRBC Pct Auto 0.0 /100WBC (0.0-0.2); Platelet Count 249 X10*3/uL (160-400); Red Blood Count 4.05 X10*6/uL (4.20-5.50); White Blood Count 17.3 X10*3/uL (4.8-10.8)
[2025-07-27 14:03] LABS: Alanine Aminotransferase 24 U/L (0-31); Albumin Level 4.2 g/dL (3.5-5.0); Alkaline Phosphatase 104 U/L (39-117); Anion Gap 13 (12-20); Aspartate Amino Transferase 22 U/L (5-31); Blood Urea Nitrogen 24 mg/dL (9-16); Calcium 9.8 mg/dL (8.4-10.2); Carbon Dioxide 29 mmol/L (22-29); Chloride 101 mmol/L (96-108); Creatinine Clr Calc Pharmacy 83.3; Estimated Glomerular Filt Rate > 60; Potassium 4.5 mmol/L (3.3-5.1); Sodium 138 mmol/L (135-145); Total Protein 7.7 g/dL (6.5-8.0)
[2025-07-27] MEDS: vancomycin/NS 2,000 MG/500 ML PLAST..BAG 250 MG IV (15:14)
--- NOTE | 2025-07-27 15:56 | PC.NURSE ---
pt comes to ED from wound care where she has been following for a wound on the tops of both feet. she was there today - wounds arrive cleanly dressed and not have been unwrapped yet. At wound care today pt alerted staff to redness and warmth on the inside of her right leg - on lower leg and inner thigh. At this time wound care instructed her to go to ED. Red, warm, no drainage, no open area on leg. In ED pt slightly warm, 100.2 and given Motrin. Now 99.2 HR 102. Blood work, cultures done while in waiting room. IV line establish, iv abx infusing.
--- NOTE | 2025-07-27 16:32 | PHA.MEDREC ---
Addendum entered by Santa Cerna RPh 07/27/25 16:47: reviewed by [facility] Original Note: Pharmacy Consult ? Medication Reconciliation Pharmacy has completed the medication reconciliation. Patient was able to confirm all of her medications. Patient confirmed Mounjaro 7.5 mg every Friday, Terazosin 20 mg (2x 10 mg) at bedtime. Patient had all her morning medications today.
[2025-07-27] MEDS: Lactated Ringers 1,000 ML 100 ML IVCONT (16:38)
--- NOTE | 2025-07-27 16:42 | PHA.PROG ---
Admission Date/Time: July 27, 2025 16:22 Indication: OTHER Weight in k.81 kg Adjusted body weight in Kg: [place] body weight in Kg: Obesity Dosing Indication % IBW: Serum Creatinine - Last 168 Hours 07/27/25 13:30 Creatinine 0.93 Estimated CrCl and GFR - Last 168 Hours 07/27/25 13:30 Estim Creat Clear Calc 83.3 Estimated GFR > 60 Vancomycin Loading Dose: 2000 MG Current Vancomycin Dosing Regimen: 1000 MG Q12H Vancomycin Monitoring using AUC goal of 400 - 600 range with trough as surrogate marker: FPU=[id number] TROUGH=20.4 Date and Time for next Vancomycin Level to be drawn: 07/28/25 @1300 Pharmacist Comments on Vancomycin Plan: BEING AGGRESSIVE WITH DOSING AT THE BEGINNING DUE TO POSSIBLE OSTEO INFECTION, WILL MONITOR AND ADJUST ACCORDINGLY WHEN TROUGH COMES BACK AFTER 2 DOSES. Vancomycin dosing will take advantage of [employer] as a clinical decision support tool that uses Bayesian modeling to calculate individual patient's pharmacokinetic parameters and forecast the patient's drug concentration time course with the target goal AUC 24 range of 400 - 600 mg/L/hr.
--- NOTE | 2025-07-27 17:45 | PM.IMHP ---
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 Pt was being seen by [facility] for wound care, when nurse noticed a new rash on her right leg concerning for cellulitis-? Duration 1-2 days. right lower leg has began hurting, is swollen, and red. Feels somewhat generally weak otherwise no other new complaints. Denies any new complaint of chest pain or shortness of breath or abdominal pain or nausea or vomiting Denies any cough Lab imaging reviewed: WBC count is 17.3, tachycardic BMP fine accept elevated BUN of 24 which is improving from the last admission CRP and ESR also elevated but seems improving from the last admission. XR/XR tibia fibula RT 2V: There is periosteal new bone formation along the fibular diaphysis which is a nonspecific finding. Severe osteoarthritis is present in the right knee. Nonspecific juxta-articular osteopenia involving the ankle. Soft tissue edema. Blood cultures sent Review of Systems Review of Systems: As above. Yes all other systems are reviewed and are negative [facility] Medical History Scoliosis Arthritis Diabetes GERD (gastroesophageal reflux disease) Numbness Elevated cholesterol Bowel incontinence Chronic indwelling Duncan catheter Osteomyelitis Bunion of right foot TONI (obstructive sleep apnea) Hyperglycemia Morbid obesity Foot callus Neuropathy Edema Urinary retention Plantar fasciitis Obesity Osteoarthritis Spinal stenosis Hypertension Family History Father History of heart attack Mother HTN (hypertension) Stroke Brother Stomach cancer Brother History of heart attack HTN (hypertension) Diabetes mellitus Lung cancer Brother Bladder cancer Heart attack Surgical History Hx of skin graft (04/14/25) History of esophagogastroduodenoscopy (EGD) Hx of ligation of vein History of carpal tunnel surgery H/O foot surgery History of tonsillectomy H/O colonoscopy History of lumbar surgery Social History Household Members: None Housing: Condominium Are you a primary transitional care nurse to a significant other at home: No Do you presently have visiting nurse or other home services: Yes Alcohol intake: never Patient Tobacco Use Status: Never used Tobacco Smoked in Last 30 Days: No e-Cigarette/Vaping Use: Never Used Second Hand Smoke Exposure: No Use of substances other than those prescribed or required for medical reasons: No Advance Directives: No Advance Directives Information Provided: No service: No Current occupational status: disabled Current occupation: right hand dominant Cognitive needs: No Hearing needs: No Vision needs: Yes Meds Allergies Allergy/AdvReac Type Severity Reaction Status Date / Time Adhesive Bandages Allergy Unknown rash Verified 07/27/25 13:04 adhesive tape (TAPE,ADHESIVE) Allergy Unknown RASH Verified 07/27/25 13:04 amlodipine Allergy Unknown edema Verified 07/27/25 13:04 atenolol Allergy Unknown Bradycardia Verified 07/27/25 13:04 bisoprolol (From Zebeta) Allergy Unknown Diarrhea Verified 07/27/25 13:04 labetalol Allergy Unknown n/a Verified 07/27/25 13:04 latex (LATEX) Allergy Unknown RASH Verified 07/27/25 13:04 metformin AdvReac Intermediate Diarrhea Verified 07/27/25 13:04 semaglutide (From Ozempic) AdvReac Intermediate Diarrhea Verified 07/27/25 13:04 vicodin Allergy Unknown heart Uncoded 06/02/25 15:09 palpitation actos AdvReac Intermediate Abdominal Uncoded 06/02/25 15:09 Pain Active Medications: Current Medications Acetaminophen (Acetaminophen 325 Mg Tablet) 650 mg PO Q6H PRN PRN Reason: Pain, Mild 1-3,fever,headache Calcium Carbonate (Calcium Carbonate 750 Mg Tab.Chew) 750 mg PO Q4H PRN PRN Reason: Heartburn Piperacillin Sod/Tazobactam (Sod 3.375 gm/ Sodium Chloride) 50 mls @ 100 mls/hr IV Q6H PRISCILLA Lactated Ringer's (Lr) 1,000 mls @ 100 mls/hr IVCONT .Q10H PRISCILLA Last Admin: 07/27/25 16:38 Dose: 100 mls/hr Vancomycin HCl 1,000 mg/ (Sodium Chloride) 270 mls @ 270 mls/hr IV Q12H [facility] Magnesium Hydroxide (Milk Of Magnesia 30 Ml Oral.Susp) 30 ml PO DAILY PRN PRN Reason: Constipation Melatonin (Melatonin 3 Mg Tablet) 6 mg PO BEDTIME PRN PRN Reason: Insomnia Pharmacy Consult (Consult Rx Vancomycin Dosing) 1 each MISCELLANE DAILY PRN PRN Reason: Consult order Sodium Chloride (0.9 % Sodium Chloride Flush 3 Ml Syringe) 3 ml IVFLUSH QSHIFT [facility] Home Medications ?Medication ?Instructions ?Recorded ?Confirmed ?Last Taken ?Type aspirin 81 mg tablet,delayed 81 mg PO DAILY 09/15/20 07/27/25 07/27/25 History release cholecalciferol (vitamin D3) 25 25 mcg PO DAILY 09/15/20 07/27/25 07/27/25 History mcg (1,000 unit) capsule magnesium oxide 500 mg capsule 500 mg PO DAILY 09/15/20 07/27/25 07/27/25 History omega 3-qob-gcu-fish oil 1,000 mg 1 cap PO BID 09/15/20 07/27/25 07/27/25 History (120 mg-180 mg) capsule (Fish Oil) acetaminophen 650 mg 1,300 mg PO Q12H 01/01/22 07/27/25 07/27/25 History tablet,extended release multivitamin 1 tab PO DAILY 01/01/22 07/27/25 07/27/25 History omeprazole 20 mg capsule,delayed 20 mg PO DAILY@0630 01/01/22 07/27/25 07/27/25 History release Lactobacillus acidophilus 1,000 mmu cells PO DAILY 01/03/25 07/27/25 07/27/25 History (Acidophilus capsule) rosuvastatin 10 mg tablet 10 mg PO DAILY 04/07/25 07/27/25 07/27/25 History terazosin 10 mg capsule 20 mg PO BEDTIME 04/07/25 07/27/25 07/26/25 History nystatin 100,000 unit/gram topical 1 appl topical BID PRN Rash 06/20/25 07/27/25 Unknown History powder (Nystop) tirzepatide 7.5 mg/0.5 mL 7.5 mg subcut MO 07/27/25 07/27/25 07/25/25 History subcutaneous pen injector (Mounjaro) Physical Exam Vital Signs and Narrative: Vital Signs: Last Vital Signs Temp 99.7 F 07/27/25 16:24 Pulse 96 07/27/25 16:24 Resp 20 07/27/25 16:24 BP 114/59 L 07/27/25 16:35 Pulse Ox 96 07/27/25 16:24 O2 Del Method Room Air 07/27/25 16:24 BMI result Body Mass Index 50.6 Appearance: Alert.? Oriented X3.? Morbidly obese.? cvs: rrr, [id number] . res: clear to auscultation ,no rhonchii or wheezing abd: no rebound or guarding ,nt, bs present. ext right leg erythema/pain-significant area from upper thigh to lower leg. neuro: axo3 , nonfocal. Results Labs 07/27/25 13:30 07/27/25 13:30 Labs: Laboratory Results - last 24 hr 07/27/25 13:30 MCV 85.4 MCH 27.4 MCHC 32.1 RDW 17.0 H Plt Count 249 D MPV 10.5 Immature Gran % (Auto) 0.5 H Neut % (Auto) 88.9 H Lymph % (Auto) 5.3 L Bradford % (Auto) 4.9 Eos % (Auto) 0.2 Baso % (Auto) 0.2 Lymph # (Auto) 0.9 L Bradford # (Auto) 0.9 Eos # (Auto) 0.0 Baso # (Auto) 0.0 Abs Immat Gran (auto) 0.09 H Absolute Neuts (auto) 15.4 H Absolute Nucleated RBC 0.000 Nucleated RBC % (auto) 0.0 ESR 45 H Anion Gap 13 Estim Creat Clear Calc 83.3 Estimated GFR > 60 Random Glucose 171 H Lactic Acid 1.9 Calcium 9.8 D Total Bilirubin 0.6 AST 22 ALT 24 Alkaline Phosphatase 104 C-Reactive Protein 3.89 H Total Protein 7.7 Albumin 4.2 Imaging Radiologist's Impressions: Impressions Tibia/Fibula X-Ray 07/27/25 13:40 IMPRESSION: There is periosteal new bone formation along the fibular diaphysis which is a nonspecific finding. Severe osteoarthritis is present in the right knee. Nonspecific juxta-articular osteopenia involving the ankle. Soft tissue edema. 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 Pt is admitted to the hospital for treatment and further evaluation of right lower extremity cellulitis with sepsis. Right lower extremity cellulitis with sepsis Meets sepsis criteria with leukocytosis, tachycardia; low-grade fever, lactic acid WNL Pt given IVF and started on broad-spectrum antibiotics in the ED Will treat with vancomycin/Zosyn started 07/27/2025 Follow blood cultures Chronic bilateral foot ulcers S/p skin grafting by Dr. Lopez in April Do not appear grossly infected Wound care consult HTN Continue carvedilol, hydralazine, irbesartan Chronic lower extremity edema Hold furosemide, spironolactone HLD Continue statin, aspirin Diet-controlled diabetes type 2 On Mounjaro at home Diabetic diet GERD Continue PPI TONI On BiPAP at night Full Code DVT Prophylaxis: Lovenox Pt will require a hospitalization of at least two nights for treatment of?right lower extremity cellulitis with sepsis that will require IV antibiotics while awaiting blood cultures. Above management discussed with the patient detail length she understand and in agreement with the above plan, time spent 70 minute. Patient full code Quality Stroke Does the patient have a stroke diagnosis?: No VTE Prior VTE?: No VTE Risk Level:: Medical - moderate - high VTE Device Contraindication: N/A - Device Ordered VTE Drug Contraindication: N/A - Med Ordered
--- OUTSIDE RECORDS SUMMARY | 2025-07-27 17:59 | XMS_ITS | Encounter Summary ---
Author Organization [facility] Address [address] [place] [address] Phone Care Team Providers Care Die Developer Name Role Phone Yolanda Jack MD Primary Care Provider [phone] Encounter Details Date Type Department Care Team (Late st Contact Info) Description 04/07/2019 Procedure Pass [facility] [address] [place] [address] Social History Tobacco Use Types Packs/Day Years [...] on filedocumented in this encounter Care Teams Die Developer Relationship Specialty Start Date End Date Yolanda Jack MD [address] [place] [id number] PCP - General Internal Medicine 04/06/19 documented as of this encounter Additional Source Comments The information contained in this document represents components of the legal health record. It is not the complete legal health record.[facility]
--- OUTSIDE RECORDS SUMMARY | 2025-07-27 18:00 | XMS_ITS | Encounter Summary ---
Author Organization [facility] Address [address] [place] [id number] Phone Care Team Providers Care Marketing Sales Consultant Name Role Phone Yolanda Jack MD Primary Care Provider [phone] Encounter Details Date Type Department Care Team (Late st Contact Info) Description 04/07/2019 Procedure Pass [facility] [address] [place] [address] Social History Tobacco Use Types Packs/Day Years [...] on filedocumented in this encounter Care Teams Marketing Sales Consultant Relationship Specialty Start Date End Date Yolanda Jack MD [address] [place] [id number] PCP - General Internal Medicine 04/06/19 documented as of this encounter Additional Source Comments The information contained in this document represents components of the legal health record. It is not the complete legal health record.[facility]
--- OUTSIDE RECORDS SUMMARY | 2025-07-27 18:00 | XMS_ITS | Clinical Summary ---
Author Organization [facility] Address [address] [place] [address] [place] [address] Phone Care Team Providers Care Talking Books Library Clerk Name Role Phone Yolanda Jack MD Primary Care Provider [phone] Social History Tobacco Use Types Packs/Day Years Used Date Smoking Tobacco: Never Assessed Education Answer Date Recorded Are you interested in more education? Not on collette e 03/07/2023 Are you concerned about learning? Not on file 03/07/2023 No 03/07/2023 No 03/07/2023 Digital Access Answer Date Recorded No 04/05/2023 No 04/05/2023 No 04/05/2023 Reliable internet access at home? Not on file 04/05/2023 Device with a working camera? Not on file Comments Unknown Sex and Gender Information Value Date Recorded Sex Assigned at Not on file Legal Sex Female 3:33 PM EDT Gender Identity Not on file Sexual Orientation Not on file Plan of Treatment Health Maintenance Due Date Last Done Comments LIPID PANEL 1961 DEPRESSION SCREENING 1973 SMOKING Hx and SMOKELESS TOBACCO SCREENING 1974 HEPATITIS C SCREENING 1979 HIV ONE-TIME SCREENING (18-6 5 YEARS) 1979 PAP SMEAR 1982 MAMMOGRAM 2001 COLOGUARD 2006 COLONOSCOPY 2006 COLORECTAL CANCER SCREENING 2006 FIT TEST 2006 FOBT 2006 SIGMOIDOSCOPY 2006 VIRTUAL COLONOSCOPY 2006 ZOSTER VACCINES (1 of 2) 2011 PNEUMOCOCCAL VACCINES (50+ years) (2 of 2 - PCV) 04/14/2018 04/14/2017 Adult Td,Tdap Booster 02/18/2024 02/17/2014 INFLUENZA VACCINE (#1) 2025 , 09/02/2019, 08/11/2018 COVID-19 VACCINE (2 - 2024-2 6 season) 2025 01/31/2021 RSV VACCINE (1 - 1-dose 75+ series) 2036 HEPATITIS A VACCINES Aged Out No long er eligible based on patient's age to complete this topic HIB VACCINES Aged Out No longer eligi ble based on patient's age to complete this topic MENINGOCOCCAL VACCINES (ACWY) Aged Out No longer eligible based on patient's age to complete this topic MENINGOCOCCAL VACCINES (B) Aged Out N o longer eligible based on patient's age to complete this topic Medical Devices Not on file Insurance [place] [employer] [facility] POS EPO [place] [employer] [facility] POS EPO [facility] POS EPO [facility] POS EPO [facility] POS EPO [facility] POS EPO Care Teams Talking Books Library Clerk Relationship Specialty Start Date End Date Yolanda Jack MD [address] [place] [address] PCP - General Internal Medicine 04/06/19 Additional Source Comments The information contained in this document represents components of the legal health record. It is not the complete legal health record.[facility]
--- OUTSIDE RECORDS SUMMARY | 2025-07-27 18:00 | XMS_ITS | Patient Health Record ---
Author Organization [facility] Address [address] [facility] [place] [address] Care Team Providers Care Meat Service Team Member Name Role Phone Yolanda Jack MD Primary Care Provider Unavaila ble Black, Julee Unavailable [phone] Allergies Allergen (clinical drug ingredient) Drug/Non Drug Allergy documented on EMR Reaction Allergy Type Onset Date Status Adhesive rash Allergy Active Latex Latex rash Allergy Active Results Component Value Reference Range Notes HEMOGLOBIN A1C (GLYCOHEMOGLO BIN) Reviewed date:11/13/2024 03:10:33 PM Interpretation: Performing Lab: Notes/Report: HEMOGLOBIN A1C % (HH) 5.5 HEMOGLOBIN A1C (GLYCOHEMOGLO BIN) Reviewed date:05/30/2025 01:33:01 PM Interpretation: Performing Lab: Notes/Report: Reason For Referral No Information Medications Medication SIG (Take, Route, Frequency, Duration) Notes Start Date End Date Status Acetaminophen Extra Strength 500 MG 2 tablets as needed Orally every 6 hrs; Duration: 14 days 11/11/2018 Active Spironolactone 25 MG 1 tablet Orally Active Vitamin D 1000 UNIT 1 tablet Orally Once a day Active CeleBREX 200 MG 1 capsule with food Orally Twice a day Active Tylenol Arthritis Pain 650 mg 1 tablet twice daily Active Aspir-Low Active Acidophilus Orally Active Bactrim DS 800-160 MG 1 tablet Orally Twice a day; Duration: 10 day(s) 11/27/2018 Not-Taking Mounjaro 5 MG/0.5ML Subcutaneous; Duration: 28 Days Active Extra Depth Diabetic Shoes with 3 Pair Custom heat-molded multi-density innersoles for 1 year Dx: 07/01/2024 Active Extra-Depth Diabetic Shoes with 3 Pair Custom heat-molded multi-density innersoles . for 1 year . Dx:hammertoes with hx of ulcers; Duration: . 04/27/2014 Active vitamin Active Iodosorb 0.9 % as directed Externally as needed PRN Not-Taking Potassium Chloride 20 MEQ Orally Once a day Not-Taking Orthopedic Extra Depth Shoes With Custom Heat Molded Multidensity Innersoles as directed Wear Daily; Duration: as needed 12/13/2020 Not-Taking oxyBUTYnin Not-Takin g Fish Oil Active Furosemide 40mg Active Rosuvastatin Calcium Active Carvedilol Active Lyrica 150 MG Orally Twice a day Active Irbesartan 300 MG 1 tablet Orally Once a day Active hydrALAZINE HCl 50 MG 1 tablet with food Orally Twice Daily 3x daily Active Gabapentin 300 MG 3 capsules Orally Once a day Active Crestor Not-Taking metFORMIN HCl 500 MG 1 tablet with a meal Orally Once a day; Duration: 30 day(s) Not-Taking Terazosin HCl 10 MG Orally 2 po QD Active Ozempic .5 inject 1 a month Not-Taking PriLOSEC Active Keflex 500 MG 1 capsule Orally [...] a day; Duration: 30 days 11/11/2018 Not-Taking Immunizations Vaccine Route Administration Date Status Comme nts Influenza Unknown 08/10/2022 Administered Influenza Unknown 09/10/2023 Administered Influenza Unknown 09/10/2024 Administered COVID-19 Moderna Vaccine Unknown 09/24/2021 Administered First Dose: 12/31/2020 Second Dose: 01/29/2021 Social History Tobacco Use: Social History Observation [...] Are you an other tobacco user? No AUDIT-C (Standard) Question Answer Notes Did you have a drink containing alcohol in the p ast year? No Points 0 Interpretation Negative Section Notes: Patient's right knee is bone [...] Polyneuropathy due to type 2 diabetes mellitus (833415459) Type 2 diabetes mellitus with diabetic polyneuropathy (E11.42) Active confirmed Vital Signs Blood pressure diastolic 70 mm Hg 05/30/2025 Height 5ft1in in 05/30/2025 Blood pressure systolic 120 mm Hg 05/30/2025 Weight 290 lbs 05/30/2025 BMI 54.79 kg/m2 05/30/2025 Procedures Procedure Date Ordered Date Performed Result Body Sit e 29503-FZYD SKIN LESIONS, 2 TO 4 10/11/2024 N/A B8825-AAMSGKKL DYSTROPHIC NAILS ANY # 10/11/2024 N/A 10549-RIEJYUQ NAIL, 6 OR MORE 05/30/2025 N/A 36700-PBZO SKIN LESIONS, 2 TO 4 05/30/2025 N/A Encounters Encounter Location Date Provider Diagnosis [address] [address] 10/11/2024 Julee Black Type 2 diabetes mellitus with diabetic polyneuropathy E11.[address] [address] 05/30/2025 Julee Black Type 2 diabetes mellitus with diabetic polyneuropathy E11.42 and Onychomycosis B35.[address] [address] 09/27/2024 Julee Black [facility] [address] 01/05/2025 Julee Black [facility] [address] 02/17/2025 Julee Black Assessments Encounter Date Diagnosis (ICD Code) Assessment Notes Treatment Notes Treatment Clinical Notes Section Notes 10/11/2024 Type 2 diabetes mellitus with diabetic polyneuropathy (ICD-10 - E11.42) 05/30/2025 Type 2 diabetes mellitus with diabetic polyneuropathy (ICD-10 - E11.42) 05/30/2025 Onychomycosis (ICD-10 - B35.1) Plan Of Treatment Pending Test Test Name Order Date *Wound Culture 10/02/2015 *Wound Culture 10/28/2017 *Wound Culture 11/27/2018 *Wound Culture 12/17/2018 X ray : Foot, right 3V 12/14/2018 38455-EHBCGQA NAIL, 6 OR MORE 02/16/2018 62802-EFHSBCM NAIL, 6 OR MORE 04/20/2018 12820-APLZWGN NAIL, 6 OR MORE 06/29/2018 98538-WSOALWA NAIL, 6 OR MORE 09/25/2017 78045-SWUMEFV NAIL, 6 OR MORE 12/22/2017 22340-PEMXPOZ NAIL, 6 OR MORE 09/19/2016 68695-XJRMENK NAIL, 6 OR MORE 10/09/2016 20436-FJQKZXY NAIL, 6 OR MORE 02/17/2017 53601-ACFHVWL NAIL, 6 OR MORE 06/19/2017 11283-JQOHBRT NAIL, 6 OR MORE 03/24/2019 33353-AOPNQIY NAIL, 6 OR MORE 07/13/2019 03683-CHYOKXA NAIL, 6 OR MORE 10/18/2019 08654-AWMGBMI NAIL, 6 OR MORE 01/31/2020 22847-GMAYRPP NAIL, 6 OR MORE 04/24/2020 64213-VOAAJDM NAIL, 6 OR MORE 07/27/2020 06367-MOETMGM NAIL, 6 OR MORE 12/13/2020 87528-JDLPUQT NAIL, 6 OR MORE 03/12/2021 51230-OUAGXEP NAIL, 6 OR MORE 05/20/2016 33062-PTEGYKK NAIL, 6 OR MORE 12/04/2015 17020-TBFMFKT NAIL, 6 OR MORE 02/14/2016 67758-XKLRNGP NAIL, 6 OR MORE 05/08/2016 01152-IAZVFHS NAIL, 6 OR MORE 08/02/2015 77173-PJODVWY NAIL, 6 OR MORE 08/07/2015 35281-YFKDBKM NAIL, 6 OR MORE 10/29/2013 75815-LQTEVVU NAIL, 6 OR MORE 04/27/2014 54582-DWNIENI NAIL, 6 OR MORE 07/27/2014 56233-QABARYB NAIL, 6 OR MORE 10/26/2014 71278-JNEMIZJ NAIL, 6 OR MORE 01/25/2015 70371-ZKOQHJG NAIL, 6 OR MORE 01/13/2012 69792-ESEVPGC NAIL, 6 OR MORE 03/25/2012 78176-CURXQKH NAIL, 6 OR MORE 06/24/2012 57988-QTQWNQI NAIL, 6 OR MORE 12/02/2012 02881-NKUZUVI NAIL, 6 OR MORE 02/15/2013 49986-KGJPDYZ NAIL, 6 OR MORE 04/22/2013 25961-QQWZUDT NAIL, 6 OR MORE 05/30/2025 20350-YIMYGIP NAIL, 1-5 01/19/2014 99491-Yxeeathz Plate 01/25/2015 90365-Yreedntk Plate 10/26/2014 07955-Bhgaxhkb Plate 07/27/2014 03483-Ivrftggq Plate 08/07/2015 15589-Fgrbyxrt Plate 08/02/2015 55262-Dryteupu Plate 05/04/2015 69230-Eqvkxhyo Plate 10/24/2015 72470-Cqcbtygl Plate 05/20/2013 89628-Hcqdnete Plate 06/23/2013 04480-Awrubqkn Plate 03/31/2013 82977-Pwuxtlsb Plate 03/01/2013 32788-Sqycbuhb Plate 06/24/2012 89673-Eccbjgho Plate 09/16/2012 70308-Qgjsktqs Plate 03/25/2012 09349-Yntqazlj Plate 06/11/2021 31391-Xjeihsdu Plate 12/13/2020 13818-Gjuzjcrc Plate 07/27/2020 23433-Eexwuoag Plate 10/18/2019 98371-Jducdgqq Plate 01/31/2020 00322-Kbxphadr Plate Each Additional 62071-Wipfbcai Plate Each Additional 28255-Wvgcjctr Plate Each Additional 71264-Mrgwyoqi Plate Each Additional 51326-Xskptnnf Plate Each Additional 58912-XWM 09/23/2013 14710-GQC 10/15/2013 17790-PQG 01/16/2017 70298- Debride <25 sq cm 01/16/2017 65838- Debride <25 sq cm 01/31/2017 72933- Debride <25 sq cm 02/17/2017 22566- Debride <25 sq cm 09/25/2017 39848- Debride <25 sq cm 03/20/2017 77526- Debride <25 sq cm 10/09/2016 54403- Debride <25 sq cm 10/23/2016 71526- Debride <25 sq cm 11/28/2016 72168- Debride <25 sq cm 01/01/2017 23205- Debride <25 sq cm 09/19/2016 47494- Debride <25 sq cm 06/06/2016 45739- Debride <25 sq cm 08/09/2016 41933- Debride <25 sq cm 02/16/2018 65067- Debride <25 sq cm 10/28/2017 90085- Debride <25 sq cm 11/17/2017 27912- Debride <25 sq cm 12/22/2017 08660- Debride <25 sq cm 08/13/2018 49058- Debride <25 sq cm 09/03/2018 90586- Debride <25 sq cm 09/24/2018 55295- Debride <25 sq cm 10/08/2018 43347- Debride <25 sq cm 04/20/2018 51987- Debride <25 sq cm 02/18/2019 74723- Debride <25 sq cm 03/24/2019 96168- Debride <25 sq cm 01/14/2022 20965- Debride <25 sq cm 10/28/2022 50073- Debride <25 sq cm 02/13/2023 37542- Debride <25 sq cm 05/22/2023 35135- Debride <25 sq cm 06/23/2013 80072- Debride <25 sq cm 05/20/2013 82879- Debride <25 sq cm 03/01/2013 48876- Debride <25 sq cm 03/15/2013 97851- Debride <25 sq cm 03/31/2013 46591- Debride <25 sq cm 04/22/2013 42808- Debride <25 sq cm 02/15/2013 57642- Debride <25 sq cm 03/25/2012 93370- Debride <25 sq cm 01/13/2012 10080- Debride <25 sq cm 09/16/2012 80708- Debride <25 sq cm 12/02/2012 36825- Debride <25 sq cm 06/24/2012 72403- Debride <25 sq cm 07/27/2014 71021- Debride <25 sq cm 10/26/2014 20464- Debride <25 sq cm 01/25/2015 64368- Debride <25 sq cm 01/19/2014 56990- Debride <25 sq cm 10/28/2011 97000- Debride <25 sq cm 11/19/2013 78341- Debride <25 sq cm 05/04/2015 11911- Debride <25 sq cm 05/18/2015 76878- Debride <25 sq cm 06/02/2015 43043- Debride <25 sq cm 06/22/2015 44607-SCMXIVN SKIN/TISSUE 05/20/2016 87122-UQDPXWZ SKIN/TISSUE 05/08/2016 38607-ZMHFKHM SKIN/TISSUE 10/29/2013 94117-UKFBHHG SKIN/TISSUE 04/27/2014 21875-ESYOXVF SKIN/TISSUE 10/13/2012 20991-YUTUCYG SKIN/TISSUE 10/30/2012 00946-QGDFBQZ SKIN/TISSUE 09/17/2011 05422-CANXVBK SKIN/TISSUE 10/15/2013 48562-GGBTVAR SKIN/TISSUE 01/18/2019 17871-WJTFJRS SKIN/TISSUE 02/01/2019 10863-TTVHSUR SKIN/TISSUE 07/23/2016 17341-DYDHZKG SKIN/TISSUE 01/31/2017 41891-JJKQONE SKIN/TISSUE 03/11/2024 25138 I&D ABSCESS- SIMPLE,SINGLE 011 70944-ZGWL SKIN LESIONS, OVER 4 05/22/20 23 95329-VEHW SKIN LESIONS, OVER 4 02/14/20 23 54918-AHDT SKIN LESIONS, 2 TO 4 10/28/20 22 53428-TZYD SKIN LESIONS, 2 TO 4 09/24/20 21 44065-TEOA SKIN LESIONS, 2 TO 4 04/22/20 22 91898-UPHK SKIN LESIONS, 2 TO 4 07/22/20 22 03861-COUC SKIN LESIONS, 2 TO 4 06/11/20 21 27638-SPQP SKIN LESIONS, 2 TO 4 07/01/20 24 12284-ADIR SKIN LESIONS, 2 TO 4 10/11/20 24 86684-WANB SKIN LESIONS, 2 TO 4 09/01/20 23 86403-VYEW SKIN LESIONS, 2 TO 4 12/11/19 24 72213-CNXM SKIN LESIONS, 2 TO 4 03/11/20 24 95322-NIZX SKIN LESIONS, 2 TO 4 05/30/20 25 55493-OPUQ NAIL(S) 07/22/2022 65028-JRPR NAIL(S) 04/22/2022 74936-BGMR NAIL(S) 09/24/2021 49242-BDMK NAIL(S) 01/14/2022 85224-RUOL NAIL(S) 10/28/2022 V5289-TMCOLXTT DYSTROPHIC NAILS ANY # U7208-RWHKMWLX DYSTROPHIC NAILS ANY # H8775-QGIHCRFU DYSTROPHIC NAILS ANY # D4476-LSVVPHFQ DYSTROPHIC NAILS ANY # H0316-MFKZRIMP DYSTROPHIC NAILS ANY # Q4540-WSHRFUIZ DYSTROPHIC NAILS ANY # F3517-KAJAECFZ DYSTROPHIC NAILS ANY # E9770-HQTJWNIQ DYSTROPHIC NAILS ANY # 90075 - Tenotomy, open flexor 01/16/2018 Next Appt Details Provider Name:Julee Dickens , 09/01/2025 11:00:00 AM, [address] [place], [address], Insurance Providers Payer Name Payer Address Payer Phone Subscriber Number Group Number Insured Name Patient Relationship to Insured Coverage Start Date Coverage End Date Medicare National [employer] [address] [facility] [place] [address] [id number] Gina Milan Self - patient is the insured [employer] [address] [place] [address] [phone] [id number] Gina Milan Self - patient is the insured Medical (General) History Medical History History ICD Code chicken pox reflux osteoporosis neuropathy high blood pressure Cholesterol back, hip, knee pain Arthritis sleep apnea pre type II diabetes Carpal tunnel Other hammer toe(s) (acquired), right fo ot M20.41 Flexion contracture of joint of right fo ot M24.574 Hallux valgus (acquired), right foot M20 .11 Unsteady gait R26.81 Need for assistance due to unsteady gait R26.89 Neuropathy G62.9 Other hammer toe(s) (acquired), left rigo t M20.42 Surgical History Surgery Date(Month/Year) spinal stenosis surgery tonsillectomy 1971 [employer] w/K-Wire 2nd Left 08/23 Colonoscopy 04/03/2018 Kyara Hairston, LIV 2nd R SE: [facility] 11/18/2018 Skin grafts for wounds on feet 04/14/25 Hospitalization History Reason Date(Month/Year) [place] [facility] [place] foot Ulceration 08/06/18 [facility] lumbar fusion 04/14/2017
--- NOTE | 2025-07-27 18:03 | PC.NURSE ---
order for rate change of LR from 100 to 80mg.
--- NOTE | 2025-07-27 19:57 | HO.NURTONUR ---
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 On arrival to ED patient had temp 100.2, WBC 17.3, ESR 45, CRP 3.8. Patient was given Ibuprofen 600 mg, Zosyn, Vanco 2 Gm. Temp 97.7, VSS. Pt was admitte for treatment and further evaluation of right inner thigh cellulitis with sepsis. Wound to b/l dorsal feet [id number] for wound care consult. Patient is alert and oriented x3, able to make her needs known. IV access: 20 G in L forearm with LR infusing at 80 ml/hr.
[2025-07-27 20:44] LABS: Glucose, Whole Blood 140 mg/dL (60-115)
[2025-07-28] VITALS (9 sets, daily range): BP systolic 105–144; BP diastolic 56–69; PULSE 73–88; RESP 18–20; TEMP 36.3–36.7; O2SAT 93–95; BMI 58.0; BMI 58.6
[2025-07-28 06:55] LABS: Hematocrit 28.5 % (37.0-47.0); Hemoglobin 9.2 g/dl (12.0-16.0); Mean Corpuscular HGB Conc 32.3 g/dl (31.0-35.0); Mean Corpuscular Hemoglobin 27.5 pg (27.0-33.0); Mean Corpuscular Volume 85.3 fL (80.0-98.0); NRBC Abs Auto 0.000 X10*3/uL (0.0-0.012); NRBC Pct Auto 0.0 /100WBC (0.0-0.2); Red Blood Count 3.34 X10*6/uL (4.20-5.50); White Blood Count 11.8 X10*3/uL (4.8-10.8)
[2025-07-28 07:15] LABS: Creatinine Clr Calc Pharmacy 90.8; Estimated Glomerular Filt Rate > 60
[2025-07-28 07:17] LABS: Anion Gap 14 (12-20); Blood Urea Nitrogen 21 mg/dL (9-16); Calcium 8.8 mg/dL (8.4-10.2); Carbon Dioxide 25 mmol/L (22-29); Chloride 104 mmol/L (96-108); Creatinine Clr Calc Pharmacy 92.7; Estimated Glomerular Filt Rate > 60; Potassium 3.9 mmol/L (3.3-5.1); Sodium 139 mmol/L (135-145)
[2025-07-28 07:28] LABS: Glucose, Whole Blood 136 mg/dL (60-115)
[2025-07-28] MEDS: Lactated Ringers 1,000 ML 80 ML IVCONT ×2 (07:42→18:40)
--- NOTE | 2025-07-28 08:09 | HO.PM.IMPN ---
Subjective Subjective Date of Service: 07/28/25 Interval History: sepsis cellulitis Review of Systems erythema seems similar -minimal change. no fevers Review of Systems: Yes all other systems are reviewed and are negative Physical Exam Exam: Exam: Appearance: Alert.? Oriented X3.? Morbidly obese.? cvs: rrr, [id number] . res: clear to auscultation ,no rhonchii or wheezing abd: no rebound or guarding ,nt, bs present. ext right leg erythema/pain-significant area from upper thigh to lower leg. neuro: axo3 , nonfocal Vital Signs: Vital Signs: Last Vital Signs Temp 97.7 F 07/28/25 07:03 Pulse 80 07/28/25 07:03 Resp 20 07/28/25 07:03 BP 105/57 L 07/28/25 07:03 Pulse Ox 94 07/28/25 07:03 O2 Del Method CPAP 07/28/25 07:03 BMI result Body Mass Index 58.0 Objective Data Active Medications Acetaminophen (Acetaminophen 325 Mg Tablet) 650 mg PO Q6H PRN PRN Reason: Pain, Mild 1-3,fever,headache Acetaminophen (Acetaminophen 325 Mg Tablet) 975 mg PO Q12H [facility] Last Admin: 07/28/25 07:42 Dose: 975 mg Documented By: CLAUDIO Aspirin (Aspirin Enteric Coated 81 Mg Tablet.) 81 mg PO DAILY [facility] Atorvastatin Calcium (Atorvastatin Calcium 40 Mg Tablet) 40 mg PO DAILY [facility] Calcium Carbonate (Calcium Carbonate 750 Mg Tab.Chew) 750 mg PO Q4H PRN PRN Reason: Heartburn Carvedilol (Carvedilol 6.25 Mg Tablet) 6.25 mg PO BID [facility]; Protocol Last Admin: 07/28/25 07:57 Dose: Not Given Documented By: FELIPA Non-Admin Reason: Physician Held Med Celecoxib (Celecoxib 200 Mg Capsule) 200 mg PO BID [facility] Last Admin: 07/28/25 07:57 Dose: Not Given Documented By: FELIPA Non-Admin Reason: Physician Held Med Dextrose (Dextrose 50 % 25 Gm/50 Ml Syringe) 25 gm IVPUSH Q15M PRN; Protocol PRN Reason: per Hypoglycemia Standing Ord. Doxazosin Mesylate (Doxazosin Mesylate 2 Mg Tablet) 16 mg PO BEDTIME [facility] Last Admin: 07/27/25 22:14 Dose: 16 mg Documented By: CLAUDIO Enoxaparin Sodium (Enoxaparin Sodium 40 Mg/0.4 Ml Syringe) 40 mg SUBCUT Q24H [facility] Last Admin: 07/27/25 18:46 Dose: 40 mg Documented By: EDITH Gabapentin (Gabapentin 300 Mg Capsule) 900 mg PO BEDTIME [facility] Last Admin: 07/27/25 22:15 Dose: 900 mg Documented By: CLAUDIO Glucose (Glucose Gel 15 Gm Gel..Gram.) 15 gm PO Q15M PRN; Protocol PRN Reason: per Hypoglycemia Standing Ord. Hydralazine HCl (Hydralazine Hcl 50 Mg Tablet) 50 mg PO BID [facility]; Protocol Last Admin: 07/27/25 22:16 Dose: 50 mg Documented By: CLAUDIO Piperacillin Sod/Tazobactam (Sod 3.375 gm/ Sodium Chloride) 50 mls @ 100 mls/hr IV Q6H [facility] Last Infusion: 07/28/25 03:58 Dose: Infused Documented By: CLAUDIO Lactated Ringer's (Lr) 1,000 mls @ 80 mls/hr IVCONT .[id number] [facility] Last Admin: 07/28/25 07:42 Dose: 80 mls/hr Documented By: CLAUDIO Vancomycin HCl 1,000 mg/ (Sodium Chloride) 270 mls @ 270 mls/hr IV Q12H [facility] Last Infusion: 07/28/25 05:13 Dose: Infused Documented By: CLAUDIO Insulin Human Lispro (Insulin Lispro 100 Unit/Ml 3 Ml Vial) 0 unit SUBCUT QIDACHS [facility]; Protocol Last Admin: 07/28/25 07:56 Dose: Not Given Documented By: FELIPA Non-Admin Reason: No Insulin Coverage Magnesium Hydroxide (Milk Of Magnesia 30 Ml Oral.Susp) 30 ml PO DAILY PRN PRN Reason: Constipation Magnesium Oxide (Magnesium Oxide 400 Mg Tablet) 400 mg PO DAILY [facility] Melatonin (Melatonin 3 Mg Tablet) 6 mg PO BEDTIME PRN PRN Reason: Insomnia Multivitamins/Vitamin C (Multivitamin Tablet) 1 tab PO DAILY [facility] Nystatin (Nystatin Powder 15 Gm Bottle) 1 appl TOPICAL BID PRN; Protocol PRN Reason: Rash Omeprazole (Omeprazole 20 Mg Capsule.Dr) 20 mg PO DAILY@0630 [facility] Last Admin: 07/28/25 07:42 Dose: 20 mg Documented By: CLAUDIO Pharmacy Consult (Consult Rx Vancomycin Dosing) 1 each MISCELLANE DAILY PRN PRN Reason: Consult order Pregabalin (Pregabalin 150 Mg Capsule) 150 mg PO BID [facility] Last Admin: 07/27/25 22:16 Dose: 150 mg Documented By: CLAUDIO Sodium Chloride (0.9 % Sodium Chloride Flush 3 Ml Syringe) 3 ml IVFLUSH QSHIFT [facility] Last Admin: 07/28/25 04:13 Dose: Not Given Documented By: CLAUDIO Non-Admin Reason: IV Running Vitamin D (Cholecalciferol (Vitamin D3) 25 Mcg Tablet) 25 mcg PO DAILY [facility] Labs 07/28/25 06:26 07/28/25 06:26 Labs: Laboratory Results - last 24 hr 07/27/25 07/27/25 07/28/25 13:30 20:41 06:26 MCV 85.4 85.3 MCH 27.4 27.5 MCHC 32.1 32.3 RDW 17.0 H 17.5 H Plt Count 249 D MPV 10.5 Immature Gran % (Auto) 0.5 H Neut % (Auto) 88.9 H Lymph % (Auto) 5.3 L [place] % (Auto) 4.9 Eos % (Auto) 0.2 Baso % (Auto) 0.2 Lymph # (Auto) 0.9 L [place] # (Auto) 0.9 Eos # (Auto) 0.0 Baso # (Auto) 0.0 Abs Immat Gran (auto) 0.09 H Absolute Neuts (auto) 15.4 H Absolute Nucleated RBC 0.000 0.000 Nucleated RBC % (auto) 0.0 0.0 ESR 45 H Anion Gap 13 14 Estim Creat Clear Calc 83.3 90.8 Estimated GFR > 60 POC Glucose 140 H Random Glucose 171 H Lactic Acid 1.9 Calcium 9.8 D Total Bilirubin 0.6 AST 22 ALT 24 Alkaline Phosphatase 104 C-Reactive Protein 3.89 H Total Protein 7.7 Albumin 4.2 07/28/25 07/28/25 07/28/25 06:26 06:26 07:06 MCV MCH MCHC RDW Plt Count MPV Immature Gran % (Auto) Neut % (Auto) Lymph % (Auto) [place] % (Auto) Eos % (Auto) Baso % (Auto) Lymph # (Auto) [place] # (Auto) Eos # (Auto) Baso # (Auto) Abs Immat Gran (auto) Absolute Neuts (auto) Absolute Nucleated RBC Nucleated RBC % (auto) ESR Anion Gap Estim Creat Clear Calc 92.7 Estimated GFR > 60 > 60 POC Glucose 136 H Random Glucose 127 H Lactic Acid Calcium 8.8 D Total Bilirubin AST ALT Alkaline Phosphatase C-Reactive Protein Total Protein Albumin 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 Pt is admitted to the hospital for treatment and further evaluation of right lower extremity cellulitis with sepsis. Right lower extremity cellulitis with sepsis Meets sepsis criteria with leukocytosis, tachycardia; low-grade fever, lactic acid WNL Pt given IVF and started on broad-spectrum antibiotics in the ED Will treat with vancomycin/Zosyn started 07/27/2025 Follow blood cultures surgery following Chronic bilateral foot ulcers S/p skin grafting by Dr. Lopez in April Do not appear grossly infected Wound care consult HTN Continue carvedilol, hydralazine, irbesartan Chronic lower extremity edema Hold furosemide, spironolactone HLD Continue statin, aspirin Diet-controlled diabetes type 2 On Mounjaro at home Diabetic diet GERD Continue PPI TONI On BiPAP at night Full Code DVT Prophylaxis: Lovenox need for hospitalization of at least two nights for treatment of?right lower extremity cellulitis with sepsis that will require IV antibiotics while awaiting blood cultures. Quality Stroke Does the patient have a stroke diagnosis?: No VTE Prior VTE?: No VTE Risk Level:: Medical - moderate - high VTE Device Contraindication: N/A - Device Ordered VTE Drug Contraindication: N/A - Med Ordered
--- NOTE | 2025-07-28 08:43 | PM.CNGS ---
History of Present Illness Consult details Consult date: 07/28/25 <Marilin Wing PA-C - Last Filed: 07/28/25 09:15> Reason for consult: other (right leg cellulitis ) <Marilin Wing PA-C - Last Filed: 07/28/25 09:15> Narrative: 65 year old female with PMH of DM, HTN, TONI, urinary retention with chronic heredia, wheelchair bound at baseline, chronic bilateral foot wounds s/p split-thickness skin graft from left thigh to bilateral feet 05/04 who presented to the ED today with complaints of right leg redness. Patient was seen at the wound care center yesterday and was found to have significant redness and swelling of her right upper thigh and was therefore sent to the ED. Work up in the ED included CBC, BMP which was significant for a leukocytosis of 17.3. She was admitted to the hospitalist service for further treatment of the right lower extremity cellulitis. She was started on IV vanco, zosyn. General surgery was consulted for her foot wounds. She reports the redness began yesterday. She denies trauma or bites to the area. She denies significant pain but reports she had felt generally unwell at home. She denies fevers, chills, nausea, vomiting, diarrhea. She reports this happened one month prior and required admission for IV abx. She was discharged on oral doxycycline with resolution of the cellulitis. She had been doing well since that time. She is seen at wound care center weekly on . She has home VNA on Friday and Friday for wound care. Iodosorb is applied to the wound bed followed by dry dressings on these days. <Marilin Wing PA-C - Last Filed: 07/28/25 09:15> Review of Systems Review of Systems: Yes all other systems are reviewed and are negative <Marilin Wing PA-C - Last Filed: 07/28/25 09:15> [facility] Past Medical History Medical History: Medical History Scoliosis Arthritis Diabetes GERD (gastroesophageal reflux disease) Numbness Elevated cholesterol Bowel incontinence Chronic indwelling Heredia catheter Osteomyelitis Bunion of right foot TONI (obstructive sleep apnea) Hyperglycemia Morbid obesity Foot callus Neuropathy Edema Urinary retention Plantar fasciitis Obesity Osteoarthritis Spinal stenosis Hypertension <Marilin Wing PA-C - Last Filed: 07/28/25 09:15> Family History Family History: Family History Father History of heart attack Mother HTN (hypertension) Stroke Brother Stomach cancer Brother History of heart attack HTN (hypertension) Diabetes mellitus Lung cancer Brother Bladder cancer Heart attack <Marilin Wing PA-C - Last Filed: 07/28/25 09:15> Surgical History Surgical History: Surgical History Hx of skin graft (04/14/25) History of esophagogastroduodenoscopy (EGD) Hx of ligation of vein History of carpal tunnel surgery H/O foot surgery History of tonsillectomy H/O colonoscopy History of lumbar surgery <BUSHRA Villanueva Last Filed: 07/28/25 09:15> Social History Social History: Social History Household Members: None Housing: House Are you a primary career development coordinator to a significant other at home: No Do you presently have visiting nurse or other home services: Yes Alcohol intake: never Patient Tobacco Use Status: Never used Tobacco e-Cigarette/Vaping Use: Never Used Second Hand Smoke Exposure: No service: No Current occupational status: disabled Current occupation: right hand dominant Cognitive needs: No Hearing needs: No Vision needs: Yes <BUSHRA Villanueva Last Filed: 07/28/25 09:15> Meds Allergies/Adverse reactions: Allergies Allergy/AdvReac Type Severity Reaction Status Date / Time Adhesive Bandages Allergy Unknown rash Verified 07/27/25 13:04 adhesive tape (TAPE,ADHESIVE) Allergy Unknown RASH Verified 07/27/25 13:04 amlodipine Allergy Unknown edema Verified 07/27/25 13:04 atenolol Allergy Unknown Bradycardia Verified 07/27/25 13:04 bisoprolol (From Zebeta) Allergy Unknown Diarrhea Verified 07/27/25 13:04 labetalol Allergy Unknown n/a Verified 07/27/25 13:04 latex (LATEX) Allergy Unknown RASH Verified 07/27/25 13:04 metformin AdvReac Intermediate Diarrhea Verified 07/27/25 13:04 semaglutide (From Ozempic) AdvReac Intermediate Diarrhea Verified 07/27/25 13:04 vicodin Allergy Unknown heart Uncoded 06/02/25 15:09 palpitation actos AdvReac Intermediate Abdominal Uncoded 06/02/25 15:09 Pain <Marilin Wing PA-C - Last Filed: 07/28/25 09:15> Active Medications: Current Medications Acetaminophen (Acetaminophen 325 Mg Tablet) 650 mg PO Q6H PRN PRN Reason: Pain, Mild 1-3,fever,headache Acetaminophen (Acetaminophen 325 Mg Tablet) 975 mg PO Q12H [facility] Last Admin: 07/28/25 07:42 Dose: 975 mg Aspirin (Aspirin Enteric Coated 81 Mg Tablet.Dr) 81 mg PO DAILY [facility] Atorvastatin Calcium (Atorvastatin Calcium 40 Mg Tablet) 40 mg PO DAILY [facility] Calcium Carbonate (Calcium Carbonate 750 Mg Tab.Chew) 750 mg PO Q4H PRN PRN Reason: Heartburn Carvedilol (Carvedilol 6.25 Mg Tablet) 6.25 mg PO BID [facility]; Protocol Last Admin: 07/28/25 07:57 Dose: Not Given Celecoxib (Celecoxib 200 Mg Capsule) 200 mg PO BID [facility] Last Admin: 07/28/25 07:57 Dose: Not Given Dextrose (Dextrose 50 % 25 Gm/50 Ml Syringe) 25 gm IVPUSH Q15M PRN; Protocol PRN Reason: per Hypoglycemia Standing Ord. Doxazosin Mesylate (Doxazosin Mesylate 2 Mg Tablet) 16 mg PO BEDTIME [facility] Last Admin: 07/27/25 22:14 Dose: 16 mg Enoxaparin Sodium (Enoxaparin Sodium 40 Mg/0.4 Ml Syringe) 40 mg SUBCUT Q24H [facility] Last Admin: 07/27/25 18:46 Dose: 40 mg Gabapentin (Gabapentin 300 Mg Capsule) 900 mg PO BEDTIME [facility] Last Admin: 07/27/25 22:15 Dose: 900 mg Glucose (Glucose Gel 15 Gm Gel..Gram.) 15 gm PO Q15M PRN; Protocol PRN Reason: per Hypoglycemia Standing Ord. Hydralazine HCl (Hydralazine Hcl 50 Mg Tablet) 50 mg PO BID [facility]; Protocol Last Admin: 07/27/25 22:16 Dose: 50 mg Piperacillin Sod/Tazobactam (Sod 3.375 gm/ Sodium Chloride) 50 mls @ 100 mls/hr IV Q6H [facility] Last Infusion: 07/28/25 03:58 Dose: Infused Lactated Ringer's (Lr) 1,000 mls @ 80 mls/hr IVCONT .[id number] [facility] Last Admin: 07/28/25 07:42 Dose: 80 mls/hr Vancomycin HCl 1,000 mg/ (Sodium Chloride) 270 mls @ 270 mls/hr IV Q12H [facility] Last Infusion: 07/28/25 05:13 Dose: Infused Insulin Human Lispro (Insulin Lispro 100 Unit/Ml 3 Ml Vial) 0 unit SUBCUT QIDACHS [facility]; Protocol Last Admin: 07/28/25 07:56 Dose: Not Given Magnesium Hydroxide (Milk Of Magnesia 30 Ml Oral.Susp) 30 ml PO DAILY PRN PRN Reason: Constipation Magnesium Oxide (Magnesium Oxide 400 Mg Tablet) 400 mg PO DAILY [facility] Melatonin (Melatonin 3 Mg Tablet) 6 mg PO BEDTIME PRN PRN Reason: Insomnia Multivitamins/Vitamin C (Multivitamin Tablet) 1 tab PO DAILY [facility] Nystatin (Nystatin Powder 15 Gm Bottle) 1 appl TOPICAL BID PRN; Protocol PRN Reason: Rash Omeprazole (Omeprazole 20 Mg Capsule.Dr) 20 mg PO DAILY@0630 [facility] Last Admin: 07/28/25 07:42 Dose: 20 mg Pharmacy Consult (Consult Rx Vancomycin Dosing) 1 each MISCELLANE DAILY PRN PRN Reason: Consult order Pregabalin (Pregabalin 150 Mg Capsule) 150 mg PO BID [facility] Last Admin: 07/27/25 22:16 Dose: 150 mg Sodium Chloride (0.9 % Sodium Chloride Flush 3 Ml Syringe) 3 ml IVFLUSH QSHIFT [facility] Last Admin: 07/28/25 04:13 Dose: Not Given Vitamin D (Cholecalciferol (Vitamin D3) 25 Mcg Tablet) 25 mcg PO DAILY [facility] <Marilin Wing PA-C - Last Filed: 07/28/25 09:15> Home medications: Home Medications ?Medication ?Instructions ?Recorded ?Confirmed ?Last Taken ?Type aspirin 81 mg tablet,delayed 81 mg PO DAILY 09/15/20 07/27/25 07/27/25 History release cholecalciferol (vitamin D3) 25 25 mcg PO DAILY 09/15/20 07/27/25 07/27/25 History mcg (1,000 unit) capsule magnesium oxide 500 mg capsule 500 mg PO DAILY 09/15/20 07/27/25 07/27/25 History omega 1-ekv-obx-fish oil 1,000 mg 1 cap PO BID 09/15/20 07/27/25 07/27/25 History (120 mg-180 mg) capsule (Fish Oil) acetaminophen 650 mg 1,300 mg PO Q12H 01/01/22 07/27/25 07/27/25 History tablet,extended release multivitamin 1 tab PO DAILY 01/01/22 07/27/25 07/27/25 History omeprazole 20 mg capsule,delayed 20 mg PO DAILY@0630 01/01/22 07/27/25 07/27/25 History release Lactobacillus acidophilus 1,000 mmu cells PO DAILY 01/03/25 07/27/25 07/27/25 History (Acidophilus capsule) rosuvastatin 10 mg tablet 10 mg PO DAILY 04/07/25 07/27/25 07/27/25 History terazosin 10 mg capsule 20 mg PO BEDTIME 04/07/25 07/27/25 07/26/25 History nystatin 100,000 unit/gram topical 1 appl topical BID PRN Rash 06/20/25 07/27/25 Unknown History powder (Nystop) tirzepatide 7.5 mg/0.5 mL 7.5 mg subcut MO 07/27/25 07/27/25 07/25/25 History subcutaneous pen injector (Marlee) <Marilin Wing PA-C - Last Filed: 07/28/25 09:15> Physical Exam Vital Signs: Vital Signs: Last Vital Signs Temp 97.7 F 07/28/25 07:03 Pulse 80 07/28/25 07:03 Resp 20 07/28/25 07:03 BP 105/57 L 07/28/25 07:03 Pulse Ox 94 07/28/25 07:03 O2 Del Method CPAP 07/28/25 07:03 BMI result Body Mass Index 58.0 <BUSHRA Villanueva Last Filed: 07/28/25 09:15> Const: General: comfortable, no acute distress and alert <BUSHRA Villanueva Last Filed: 07/28/25 09:15> Orientation/consciousness: patient oriented x3 <BUSHRA Villanueva Last Filed: 07/28/25 09:15> Resp: Effort & Inspection: normal respiratory effort <BUSHRA Villanueva Last Filed: 07/28/25 09:15> Neuro: General: patient oriented x3 <BUSHRA Villanueva Last Filed: 07/28/25 09:15> Extrem: Other: right leg- medial aspect of thigh extending distally towards knee with significant erythema and edema/induration, has mild edema over calf area, no palpable fluctuance, no excoriations right and left dorsal foot wounds- clean appearing, no surrounding cellulitis <BUSHRA Villanueva Last Filed: 07/28/25 09:15> Results Labs Result diagrams: 07/28/25 06:26 07/28/25 06:26 <BUSHRA Villanueva Last Filed: 07/28/25 09:15> Labs: Abnormal lab results 07/27/25 07/27/25 07/28/25 Range/Units 13:30 20:41 06:26 WBC 17.3 H 11.8 H (4.8-10.8) X10*3/uL RBC 4.05 L 3.34 L (4.20-5.50) X10*6/uL Hgb 11.1 L 9.2 L (12.0-16.0) g/dl Hct 34.6 L 28.5 L (37.0-47.0) % RDW 17.0 H 17.5 H (11.0-16.0) % Immature Gran % (Auto) 0.5 H (0.0-0.4) % Neut % (Auto) 88.9 H (45-73) % Lymph % (Auto) 5.3 L (20-40) % Lymph # (Auto) 0.9 L (1.2-4.9) X10*3/uL Abs Immat Gran (auto) 0.09 H (0.00-0.03) X10*3/uL Absolute Neuts (auto) 15.4 H (2.0-8.3) x10*3/uL ESR 45 H (0-20) MM/HR BUN 24 H 21 H (9-16) mg/dL POC Glucose 140 H (60-115) mg/dL Random Glucose 171 H 127 H (60-115) mg/dL C-Reactive Protein 3.89 H (< or = 0.50) mg/dL 07/28/25 Range/Units 07:06 WBC (4.8-10.8) X10*3/uL RBC (4.20-5.50) X10*6/uL Hgb (12.0-16.0) g/dl Hct (37.0-47.0) % RDW (11.0-16.0) % Immature Gran % (Auto) (0.0-0.4) % Neut % (Auto) (45-73) % Lymph % (Auto) (20-40) % Lymph # (Auto) (1.2-4.9) X10*3/uL Abs Immat Gran (auto) (0.00-0.03) X10*3/uL Absolute Neuts (auto) (2.0-8.3) x10*3/uL ESR (0-20) MM/HR BUN (9-16) mg/dL POC Glucose 136 H (60-115) mg/dL Random Glucose (60-115) mg/dL C-Reactive Protein (< or = 0.50) mg/dL Short CBC 07/27/25 07/28/25 Range/Units 13:30 06:26 WBC 17.3 H 11.8 H (4.8-10.8) X10*3/uL Hgb 11.1 L 9.2 L (12.0-16.0) g/dl Hct 34.6 L 28.5 L (37.0-47.0) % Plt Count 249 D (160-400) X10*3/uL BMP 07/27/25 07/28/25 07/28/25 13:30 06:26 06:26 Sodium 138 139 Potassium 4.5 3.9 Chloride 101 104 Carbon Dioxide 29 25 BUN 24 H 21 H Creatinine 0.93 0.93 0.91 Calcium 9.8 D 8.8 D Liver Function 07/27/25 Range/Units 13:30 Total Bilirubin 0.6 (0.0-1.0) mg/dL AST 22 (5-31) U/L ALT 24 (0-31) U/L Alkaline Phosphatase 104 (39-117) U/L Albumin 4.2 (3.5-5.0) g/dL All other labs normal. <Marilin Wing PA-C - Last Filed: 07/28/25 09:15> Assessment and Plan (1) Cellulitis of leg, right: Status: Acute <Marilin Wing PA-C - Last Filed: 07/28/25 09:15> 65-year-old female with multiple medical problems as above -including morbid obesity, COPD with sleep apnea, diabetes, neuropathy with cellulitis of the right thigh She she also has this poorly healing ulcers on the feet on both sides, with grafting done last April, with Dr. Lopez No surgical intervention necessary for the cellulitic area on the left thigh currently Continue IV antibiotics Seen and examined independently <Quan Griffin MD - Last Filed: 07/28/25 09:43> 65 year old female with PMH of DM, HTN, TONI, urinary retention with chronic heredia, wheelchair bound at baseline, chronic bilateral foot wounds s/p split-thickness skin graft from left thigh to bilateral feet 05/04 admitted with recurrent right lower leg cellulitis. Currently no drainable fluid collections. Cont IV abx, leg elevation as tolerated. B/l foot wounds are clean appearing and are not associated with the cellulitis. Can continue daily local wound care. Unfortunately we do not have iodosorb and therefore nonadherent dressing with xeroform followed by dry 4x4 applied. Would recommend US to evaluate for DVT given the recurrent cellulitis. <Marilin Wing PA-C - Last Filed: 07/28/25 09:15> Procedures Date of Service Date of Service: 07/28/25 <Marilin Wing PA-C - Last Filed: 07/28/25 09:15> 07/28/25 <Quan Griffin MD - Last Filed: 07/28/25 09:43>
[2025-07-28] MEDS: Aspirin Enteric Coated 81 MG TABLET.DR PO (08:50)
[2025-07-28] MEDS: 0.9 % Sodium Chloride Flush 3 ML SYRINGE IVFLUSH ×3 (08:50→21:22)
--- NOTE | 2025-07-28 08:50 | MHC.CM.PN ---
CM met with Patient at bedside and addressed IMM with her, providing Patient with the original and a copy has been placed on the chart. Patient lives alone in a condo and is power w/c bound at baseline. Patient is active with [facility], [employer] for [employer] and a [employer] 19.5 hours/week. Home/resume said services is Patient's goal and CM has initiated and will follow for dc planning.Patient states that she was [facility] from [facility] in her power w/c and may need transport to home via [facility]. Patient's Nephew/HCP/Viet is involved and supportive. PCP is Dr.Joanna Jack.
[2025-07-28] MEDS: Flu Vacc TS2025-26(6mo up)/PF 0.5 ML SYRINGE IM (08:51)
[2025-07-28 09:12] LABS: Platelet Count 149 X10*3/uL (160-400)
[2025-07-28 11:29] LABS: Glucose, Whole Blood 128 mg/dL (60-115)
--- NOTE | 2025-07-28 13:54 | HE.PHANOTE ---
Addendum entered by Santa Cerna RPh 07/28/25 13:55: THE NEW DOSE IS 1500 Q24 HOURS Original Note: RE VANCO DOSING BASED ON PT TROUGH 15.4 PK SHOWING POTENTIAL AUC 602 AND TROUGH 19.2 WITH 1000 MG Q12 DOSING. WILL ADJUST DOSE TO 1250 MG Q24 HOURS AND CONTINUE DAILY RENAL AND TROUGH MONITORING TO ENSURE SAFE AND APPROPRIATE DOSING.
[2025-07-28 16:16] LABS: Glucose, Whole Blood 127 mg/dL (60-115)
[2025-07-28 20:24] LABS: Glucose, Whole Blood 140 mg/dL (60-115)
[2025-07-29] VITALS: BP 116/57; PULSE 83; RESP 18; TEMP 36.9; O2SAT 92
[2025-07-29 03:21] VITALS: BP 122/63; PULSE 77; RESP 20; TEMP 36.1; O2SAT 94
[2025-07-29 07:16] LABS: Creatinine Clr Calc Pharmacy 88.5; Estimated Glomerular Filt Rate 59
[2025-07-29 07:27] LABS: Glucose, Whole Blood 125 mg/dL (60-115)
[2025-07-29 07:53] VITALS: BP 126/57; PULSE 79; RESP 20; TEMP 36.2; O2SAT 95
[2025-07-29] MEDS: Lactated Ringers 1,000 ML 80 ML IVCONT (07:58)
[2025-07-29] MEDS: Aspirin Enteric Coated 81 MG TABLET.DR PO (07:59)
--- NOTE | 2025-07-29 08:20 | P.PNIM_ITS ---
Subjective Subjective Date of Service: 07/29/25 Interval History: leg cellulitis Review of Systems leg erythema seems improivng but still has significan erythema area Review of Systems: Yes all other systems are reviewed and are negative Physical Exam 2 Exam: Exam: Appearance: Alert.? Oriented X3.? Morbidly obese.? cvs: rrr, [id number] . res: clear to auscultation ,no rhonchii or wheezing abd: no rebound or guarding ,nt, bs present. ext right leg erythema/pain-significant area from upper thigh to lower leg. neuro: axo3 , nonfocal Vital Signs: Vital Signs: Last Vital Signs Temp 97.2 F 07/29/25 07:53 Pulse 79 07/29/25 07:53 Resp 20 07/29/25 07:53 BP 126/57 L 07/29/25 07:53 Pulse Ox 95 07/29/25 07:53 O2 Del Method BiPAP 07/29/25 07:53 BMI result Body Mass Index 58.6 Objective Data Active Medications Acetaminophen (Acetaminophen 325 Mg Tablet) 650 mg PO Q6H PRN PRN Reason: Pain, Mild 1-3,fever,headache Acetaminophen (Acetaminophen 325 Mg Tablet) 975 mg PO Q12H [facility] Last Admin: 07/29/25 07:59 Dose: 975 mg Documented By: FELIPA Aspirin (Aspirin Enteric Coated 81 Mg Tablet.) 81 mg PO DAILY [facility] Last Admin: 07/29/25 07:59 Dose: 81 mg Documented By: FELIPA Atorvastatin Calcium (Atorvastatin Calcium 40 Mg Tablet) 40 mg PO DAILY [facility] Last Admin: 07/29/25 07:59 Dose: 40 mg Documented By: FELIPA Calcium Carbonate (Calcium Carbonate 750 Mg Tab.Chew) 750 mg PO Q4H PRN PRN Reason: Heartburn Carvedilol (Carvedilol 6.25 Mg Tablet) 6.25 mg PO BID [facility]; Protocol Last Admin: 07/29/25 07:59 Dose: 6.25 mg Documented By: FELIPA Celecoxib (Celecoxib 200 Mg Capsule) 200 mg PO BID [facility] Last Admin: 07/29/25 07:59 Dose: 200 mg Documented By: FELIPA Dextrose (Dextrose 50 % 25 Gm/50 Ml Syringe) 25 gm IVPUSH Q15M PRN; Protocol PRN Reason: per Hypoglycemia Standing Ord. Doxazosin Mesylate (Doxazosin Mesylate 2 Mg Tablet) 16 mg PO BEDTIME [facility] Last Admin: 07/28/25 21:19 Dose: 16 mg Documented By: BRIAN Enoxaparin Sodium (Enoxaparin Sodium 40 Mg/0.4 Ml Syringe) 40 mg SUBCUT Q24H [facility] Last Admin: 07/28/25 19:32 Dose: 40 mg Documented By: BRIAN Gabapentin (Gabapentin 300 Mg Capsule) 900 mg PO BEDTIME [facility] Last Admin: 07/28/25 21:18 Dose: 900 mg Documented By: BRIAN Glucose (Glucose Gel 15 Gm Gel..Gram.) 15 gm PO Q15M PRN; Protocol PRN Reason: per Hypoglycemia Standing Ord. Hydralazine HCl (Hydralazine Hcl 50 Mg Tablet) 50 mg PO BID [facility]; Protocol Last Admin: 07/29/25 07:59 Dose: 50 mg Documented By: FELIPA Piperacillin Sod/Tazobactam (Sod 3.375 gm/ Sodium Chloride) 50 mls @ 100 mls/hr IV Q6H [facility] Last Admin: 07/29/25 07:58 Dose: 100 mls/hr Documented By: FELIPA Lactated Ringer's (Lr) 1,000 mls @ 80 mls/hr IVCONT .[id number] [facility] Last Admin: 07/29/25 07:58 Dose: 80 mls/hr Documented By: FELIPA Vancomycin HCl 1,500 mg/ (Sodium Chloride) 500 mls @ 333.333 mls/hr IV Q24H [facility] Last Infusion: 07/28/25 18:42 Dose: Infused Documented By: FELIPA Insulin Human Lispro (Insulin Lispro 100 Unit/Ml 3 Ml Vial) 0 unit SUBCUT QIDACHS [facility]; Protocol Last Admin: 07/29/25 07:29 Dose: Not Given Documented By: FELIPA Non-Admin Reason: No Insulin Coverage Magnesium Hydroxide (Milk Of Magnesia 30 Ml Oral.Susp) 30 ml PO DAILY PRN PRN Reason: Constipation Magnesium Oxide (Magnesium Oxide 400 Mg Tablet) 400 mg PO DAILY [facility] Last Admin: 07/29/25 07:59 Dose: 400 mg Documented By: FELIPA Melatonin (Melatonin 3 Mg Tablet) 6 mg PO BEDTIME PRN PRN Reason: Insomnia Multivitamins/Vitamin C (Multivitamin Tablet) 1 tab PO DAILY [facility] Last Admin: 07/29/25 07:59 Dose: 1 tab Documented By: FELIPA Nystatin (Nystatin Powder 15 Gm Bottle) 1 appl TOPICAL BID PRN; Protocol PRN Reason: Rash Omeprazole (Omeprazole 20 Mg Capsule.) 20 mg PO DAILY@0630 [facility] Last Admin: 07/29/25 06:28 Dose: 20 mg Documented By: BRIAN Pharmacy Consult (Consult Rx Vancomycin Dosing) 1 each MISCELLANE DAILY PRN PRN Reason: Consult order Pregabalin (Pregabalin 150 Mg Capsule) 150 mg PO BID [facility] Last Admin: 07/29/25 07:59 Dose: 150 mg Documented By: FELIPA Sodium Chloride (0.9 % Sodium Chloride Flush 3 Ml Syringe) 3 ml IVFLUSH QSHIFT [facility] Last Admin: 07/29/25 08:10 Dose: Not Given Documented By: FELIPA Non-Admin Reason: IV Running Vitamin D (Cholecalciferol (Vitamin D3) 25 Mcg Tablet) 25 mcg PO DAILY [facility] Last Admin: 07/29/25 07:59 Dose: 25 mcg Documented By: FELIPA Labs 07/28/25 06:26 07/29/25 06:38 Labs: Laboratory Results - last 24 hr 07/28/25 07/28/25 07/28/25 06:26 11:25 13:07 Plt Count 149 L D MPV 12.2 Hold Purple Top Estim Creat Clear Calc Estimated GFR POC Glucose 128 H Random Vancomycin 15.4 07/28/25 07/28/25 07/29/25 16:10 20:14 06:38 Plt Count MPV Hold Purple Top SEE NOTE Estim Creat Clear Calc 88.5 Estimated GFR 59 POC Glucose 127 H 140 H Random Vancomycin 07/29/25 07:17 Plt Count MPV Hold Purple Top Estim Creat Clear Calc Estimated GFR POC Glucose 125 H Random Vancomycin Microbiology Microbiology Results: Microbiology 07/27/25 13:30 Blood Culture - Preliminary Blood - Venous No growth after 24 hours. 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 Pt is admitted to the hospital for treatment and further evaluation of right lower extremity cellulitis with sepsis. Right lower extremity cellulitis with sepsis Meets sepsis criteria with leukocytosis, tachycardia; low-grade fever, lactic acid WNL Pt given IVF and started on broad-spectrum antibiotics in the ED Will treat with vancomycin/Zosyn started 07/27/2025 Follow blood cultures:1/2 Gram-negative maximo venous dupplex:No evidence of acute DVT in the bilateral lower extremities. Chronic bilateral foot ulcers S/p skin grafting by Dr. Lopez in April seen by surgery-recommended continue above management. Wound care consult: Buttock:Chronic MASD (Moisture Associated Skin Damage) : b/l foot wounds: 1. Turn and Reposition every 2 hours and as needed for patient comfort.? Use pillows or wedges to support off loading positions. 2. Off Load all bony prominences with use of pillows and heel boots if needed.? Apply Preventative foams where needed. ? 3. Monitor for incontinence and moisture control, use barrier creams when needed for prevention and treatment. 4. Provide adequate and supplemental nutrition.? 5. Order low air loss mattress. 6. When applicable maintain blood glucose levels per Providers order. Buttock - Off Load Pressure with Q2 hr turns and use of pillows - Cleanse with PH balance spray or wipes, pat dry. ?Apply thin layer of barrier cream to affected area.? Apply twice daily and Reapply thin layer PRN after each episode of incontinence. Bilateral Feet - Elevate heels off of bed surface with pillows.? Float heels off of pillows.? Cleanse with saline, pat dry. ?Apply Iodosorb / Iodoflex to wound bed cover with gauze and tape. ?Change every other day.?? Iodoflex left at bedside. Note the Iodoflex will be applied brown and over the course of time as the Iodine is absorbed into the wound bed the color will change to yellow / cream signifying time to replace.?? At time of discharge patient should continue Iodoflex until out pt follow up with wound clinic. ?Iodoflex can be obtained from Wound Care Nurse / Office this is not stocked on the units. HTN Continue carvedilol, hydralazine, irbesartan Chronic lower extremity edema Hold furosemide, spironolactone HLD Continue statin, aspirin Diet-controlled diabetes type 2 On Mounjaro at home Diabetic diet GERD Continue PPI TONI On BiPAP at night Full Code DVT Prophylaxis: Lovenox need for hospitalization of at least two nights for treatment of?right lower extremity cellulitis with sepsis that will require IV antibiotics while awaiting blood cultures. Quality Stroke Does the patient have a stroke diagnosis?: No VTE Prior VTE?: No VTE Risk Level:: Medical - moderate - high VTE Device Contraindication: N/A - Device Ordered VTE Drug Contraindication: N/A - Med Ordered
[2025-07-29 08:46] LABS: VBG HCO3 27 mmol/L (22-26); VBG O2 % Saturation 96.0 %
[2025-07-29 08:47] LABS: Venous Blood Gas Refer to POC result
[2025-07-29 09:07] LABS: Anion Gap 12 (12-20); Blood Urea Nitrogen 17 mg/dL (9-16); Calcium 8.2 mg/dL (8.4-10.2); Carbon Dioxide 27 mmol/L (22-29); Chloride 105 mmol/L (96-108); Potassium 3.8 mmol/L (3.3-5.1); Sodium 140 mmol/L (135-145)
[2025-07-29 11:13] LABS: Glucose, Whole Blood 123 mg/dL (60-115)
[2025-07-29 11:42] VITALS: BP 103/56; PULSE 69; RESP 20; TEMP 36.2; O2SAT 95
--- NOTE | 2025-07-29 13:37 | HE.PHANOTE ---
RE VANCO DOSING TROUGH TRENDING LOW. WILL CHANGE DOSE TO 1000 Q12 TO ATTEMPT TO ACHIEVE THERAPEUTIC TROUGH AND CONTINUE DAILY RENAL MONITORING. NEXT TROUGH 07/30 @1300.
--- NOTE | 2025-07-29 13:52 | HO.WOUND ---
Wound Consult: Initial 65yr old?female admitted to [facility] on 07/27/25- See progress notes and H&P for detailed history.? Wound consult placed for Feet and buttock.? Patient agreeable to assessment and photo documentation.? Buttock Etiology: ?Chronic MASD (Moisture Associated Skin Damage) Wound Bed: intact blanchable purple tissue Edges: ? mirrored to buttock and perianal area Misti wound: ? No Induration, Fluctuance or Warmth noted Pain: denies Goals of Treatment: ? Off load pressure and barrier cream to protect from Moisture and friction Left Foot Right Foot Bilateral Feet Etiology: ??Unclear Etiology - Chronic Wound Bed: Marbled wound beds with yellow slough and pink red moist wound bed Drainage / Odor: larson drainage noted on dressing no odor noted Edges: ? well defined Misti wound: ?Right leg is red and swollen at upper thigh - cellultitis - No Induration, Fluctuance or Warmth noted Pain: denies Goals of Treatment: ? Iodoflex for moisture and biofilm distruption Recommendations: 1. Turn and Reposition every 2 hours and as needed for patient comfort.? Use pillows or wedges to support off loading positions. 2. Off Load all bony prominences with use of pillows and heel boots if needed.? Apply Preventative foams where needed. ? 3. Monitor for incontinence and moisture control, use barrier creams when needed for prevention and treatment. 4. Provide adequate and supplemental nutrition.? 5. Order low air loss mattress. 6. When applicable maintain blood glucose levels per Providers order. Buttock - Off Load Pressure with Q2 hr turns and use of pillows - Cleanse with PH balance spray or wipes, pat dry. ?Apply thin layer of barrier cream to affected area.? Apply twice daily and Reapply thin layer PRN after each episode of incontinence. Bilateral Feet - Elevate heels off of bed surface with pillows.? Float heels off of pillows.? Cleanse with saline, pat dry. ?Apply Iodosorb / Iodoflex to wound bed cover with gauze and tape. ?Change every other day.?? Iodoflex left at bedside. Note the Iodoflex will be applied brown and over the course of time as the Iodine is absorbed into the wound bed the color will change to yellow / cream signifying time to replace.?? At time of discharge patient should continue Iodoflex until out pt follow up with wound clinic. ?Iodoflex can be obtained from Wound Care Nurse / Office this is not stocked on the units. Re-consult wound care Nurse for wound deterioration or wound changes.
--- NOTE | 2025-07-29 14:57 | MHC.CM.PN ---
Per md rounds patient is not cleared for dc today. She continues to require IV ABX. DP Home with resumption of [facility] and [employer]. May need assist with transportation at discharge.
[2025-07-29] MEDS: 0.9 % Sodium Chloride Flush 3 ML SYRINGE IVFLUSH ×2 (15:37→20:58)
[2025-07-29 15:39] VITALS: BP 155/61; PULSE 70; RESP 20; TEMP 36.2; O2SAT 94
[2025-07-29 16:35] LABS: Glucose, Whole Blood 107 mg/dL (60-115)
[2025-07-29 19:47] VITALS: BP 147/69; PULSE 75; RESP 18; TEMP 36.2; O2SAT 95
[2025-07-29 20:08] LABS: Glucose, Whole Blood 126 mg/dL (60-115)
[2025-07-30] VITALS (9 sets, daily range): BP systolic 112–143; BP diastolic 56–72; PULSE 63–97; RESP 17–20; TEMP 36.1–36.5; O2SAT 93–96
[2025-07-30 07:06] LABS: Creatinine Clr Calc Pharmacy 103.6; Estimated Glomerular Filt Rate > 60
[2025-07-30 07:28] LABS: Glucose, Whole Blood 118 mg/dL (60-115)
--- NOTE | 2025-07-30 07:50 | P.PNIM_ITS ---
Subjective Subjective Date of Service: 07/30/25 Interval History: leg celluitis Review of Systems leg erythema seems improving no fevers Review of Systems: Yes all other systems are reviewed and are negative Physical Exam 2 Exam: Exam: Appearance: Alert.? Oriented X3.? Morbidly obese.? cvs: rrr, [id number] . res: clear to auscultation ,no rhonchii or wheezing abd: no rebound or guarding ,nt, bs present. ext right leg erythema/pain-significant area from upper thigh to lower leg. neuro: axo3 , nonfocal Vital Signs: Vital Signs: Last Vital Signs Temp 97.3 F 07/30/25 07:17 Pulse 74 07/30/25 07:17 Resp 18 07/30/25 07:17 BP 147/94 H 07/30/25 07:17 Pulse Ox 96 07/30/25 07:17 O2 Del Method Room Air, BiPAP 07/30/25 07:17 O2 Flow Rate 17 07/30/25 03:11 BMI result Body Mass Index 58.6 Objective Data Active Medications Acetaminophen (Acetaminophen 325 Mg Tablet) 650 mg PO Q6H PRN PRN Reason: Pain, Mild 1-3,fever,headache Acetaminophen (Acetaminophen 325 Mg Tablet) 975 mg PO Q12H [facility] Last Admin: 07/29/25 20:55 Dose: 975 mg Documented By: GASTON Aspirin (Aspirin Enteric Coated 81 Mg Tablet.Dr) 81 mg PO DAILY [facility] Last Admin: 07/29/25 07:59 Dose: 81 mg Documented By: FELIPA Atorvastatin Calcium (Atorvastatin Calcium 40 Mg Tablet) 40 mg PO DAILY [facility] Last Admin: 07/29/25 07:59 Dose: 40 mg Documented By: FELIPA Calcium Carbonate (Calcium Carbonate 750 Mg Tab.Chew) 750 mg PO Q4H PRN PRN Reason: Heartburn Carvedilol (Carvedilol 6.25 Mg Tablet) 6.25 mg PO BID [facility]; Protocol Last Admin: 07/29/25 20:56 Dose: 6.25 mg Documented By: GASTON Celecoxib (Celecoxib 200 Mg Capsule) 200 mg PO BID [facility] Last Admin: 07/29/25 20:56 Dose: 200 mg Documented By: GASTON Dextrose (Dextrose 50 % 25 Gm/50 Ml Syringe) 25 gm IVPUSH Q15M PRN; Protocol PRN Reason: per Hypoglycemia Standing Ord. Doxazosin Mesylate (Doxazosin Mesylate 2 Mg Tablet) 16 mg PO BEDTIME [facility] Last Admin: 07/29/25 20:56 Dose: 16 mg Documented By: GASTON Enoxaparin Sodium (Enoxaparin Sodium 40 Mg/0.4 Ml Syringe) 40 mg SUBCUT Q24H [facility] Last Admin: 07/29/25 20:56 Dose: 40 mg Documented By: GASTON Gabapentin (Gabapentin 300 Mg Capsule) 900 mg PO BEDTIME [facility] Last Admin: 07/29/25 20:56 Dose: 900 mg Documented By: GASTON Glucose (Glucose Gel 15 Gm Gel..Gram.) 15 gm PO Q15M PRN; Protocol PRN Reason: per Hypoglycemia Standing Ord. Hydralazine HCl (Hydralazine Hcl 50 Mg Tablet) 50 mg PO BID [facility]; Protocol Last Admin: 07/29/25 20:56 Dose: 50 mg Documented By: GASTON Piperacillin Sod/Tazobactam (Sod 3.375 gm/ Sodium Chloride) 50 mls @ 100 mls/hr IV Q6H [facility] Last Infusion: 07/30/25 03:53 Dose: Infused Documented By: GASTON Vancomycin HCl 1,000 mg/ (Sodium Chloride) 270 mls @ 270 mls/hr IV Q12H [facility] Last Infusion: 07/30/25 05:18 Dose: Infused Documented By: GASTON Insulin Human Lispro (Insulin Lispro 100 Unit/Ml 3 Ml Vial) 0 unit SUBCUT QIDACHS [facility]; Protocol Last Admin: 07/30/25 07:46 Dose: Not Given Documented By: ISIAH Non-Admin Reason: No Insulin Coverage Magnesium Hydroxide (Milk Of Magnesia 30 Ml Oral.Susp) 30 ml PO DAILY PRN PRN Reason: Constipation Magnesium Oxide (Magnesium Oxide 400 Mg Tablet) 400 mg PO DAILY [facility] Last Admin: 07/29/25 07:59 Dose: 400 mg Documented By: FELIPA Melatonin (Melatonin 3 Mg Tablet) 6 mg PO BEDTIME PRN PRN Reason: Insomnia Multivitamins/Vitamin C (Multivitamin Tablet) 1 tab PO DAILY [facility] Last Admin: 07/29/25 07:59 Dose: 1 tab Documented By: FELIPA Nystatin (Nystatin Powder 15 Gm Bottle) 1 appl TOPICAL BID PRN; Protocol PRN Reason: Rash Omeprazole (Omeprazole 20 Mg Capsule.Dr) 20 mg PO DAILY@0630 [facility] Last Admin: 07/30/25 05:53 Dose: 20 mg Documented By: GASTON Pharmacy Consult (Consult Rx Vancomycin Dosing) 1 each MISCELLANE DAILY PRN PRN Reason: Consult order Pregabalin (Pregabalin 150 Mg Capsule) 150 mg PO BID [facility] Last Admin: 07/29/25 20:56 Dose: 150 mg Documented By: GASTON Sodium Chloride (0.9 % Sodium Chloride Flush 3 Ml Syringe) 3 ml IVFLUSH QSHIFT [facility] Last Admin: 07/29/25 20:58 Dose: 3 ml Documented By: GASTON Vitamin D (Cholecalciferol (Vitamin D3) 25 Mcg Tablet) 25 mcg PO DAILY [facility] Last Admin: 07/29/25 07:59 Dose: 25 mcg Documented By: FELIPA Labs 07/28/25 06:26 07/30/25 05:38 Labs: Laboratory Results - last 24 hr 07/29/25 07/29/25 07/29/25 06:38 08:41 11:10 VBG pH 7.48 H VBG pCO2 37 VBG pO2 79 VBG HCO3 27 H VBG O2 Saturation 96.0 VBG Base Excess 4.2 Anion Gap 12 Estim Creat Clear Calc 88.5 Estimated GFR 59 POC Glucose 123 H Random Glucose 128 H Calcium 8.2 L D Random Vancomycin 07/29/25 07/29/25 07/29/25 12:56 16:26 20:04 VBG pH VBG pCO2 VBG pO2 VBG HCO3 VBG O2 Saturation VBG Base Excess Anion Gap Estim Creat Clear Calc Estimated GFR POC Glucose 107 126 H Random Glucose Calcium Random Vancomycin 13.3 L 07/30/25 07/30/25 05:38 07:13 VBG pH VBG pCO2 VBG pO2 VBG HCO3 VBG O2 Saturation VBG Base Excess Anion Gap Estim Creat Clear Calc 103.6 Estimated GFR > 60 POC Glucose 118 H Random Glucose Calcium Random Vancomycin Microbiology Microbiology Results: Microbiology 07/27/25 13:30 Blood Culture - Preliminary Blood - Venous No growth after 48 hours. 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 Pt is admitted to the hospital for treatment and further evaluation of right lower extremity cellulitis with sepsis. Right lower extremity cellulitis with sepsis Meets sepsis criteria with leukocytosis, tachycardia; low-grade fever, lactic acid WNL Pt given IVF and started on broad-spectrum antibiotics in the ED continue vancomycin/Zosyn started 07/27/2025 Follow blood cultures:11/11 : peusomonas venous dupplex:No evidence of acute DVT in the bilateral lower extremities. ID eval. Chronic bilateral foot ulcers S/p skin grafting by Dr. Lopez in April seen by surgery-recommended continue above management. Wound care consult: Buttock:Chronic MASD (Moisture Associated Skin Damage) : b/l foot wounds: 1. Turn and Reposition every 2 hours and as needed for patient comfort.? Use pillows or wedges to support off loading positions. 2. Off Load all bony prominences with use of pillows and heel boots if needed.? Apply Preventative foams where needed. ? 3. Monitor for incontinence and moisture control, use barrier creams when needed for prevention and treatment. 4. Provide adequate and supplemental nutrition.? 5. Order low air loss mattress. 6. When applicable maintain blood glucose levels per Providers order. Buttock - Off Load Pressure with Q2 hr turns and use of pillows - Cleanse with PH balance spray or wipes, pat dry. ?Apply thin layer of barrier cream to affected area.? Apply twice daily and Reapply thin layer PRN after each episode of incontinence. Bilateral Feet - Elevate heels off of bed surface with pillows.? Float heels off of pillows.? Cleanse with saline, pat dry. ?Apply Iodosorb / Iodoflex to wound bed cover with gauze and tape. ?Change every other day.?? Iodoflex left at bedside. Note the Iodoflex will be applied brown and over the course of time as the Iodine is absorbed into the wound bed the color will change to yellow / cream signifying time to replace.?? At time of discharge patient should continue Iodoflex until out pt follow up with wound clinic. ?Iodoflex can be obtained from Wound Care Nurse / Office this is not stocked on the units. HTN Continue carvedilol, hydralazine, irbesartan Chronic lower extremity edema Hold furosemide, spironolactone HLD Continue statin, aspirin Diet-controlled diabetes type 2 On Mounjaro at home Diabetic diet GERD Continue PPI TONI On BiPAP at night generalised weak-added pt eval. Full Code DVT Prophylaxis: Lovenox need for hospitalization of at least two nights for treatment of?right lower extremity cellulitis with sepsis that will require IV antibiotics while awaiting blood cultures. Quality Stroke Does the patient have a stroke diagnosis?: No VTE Prior VTE?: No VTE Risk Level:: Medical - moderate - high VTE Device Contraindication: N/A - Device Ordered VTE Drug Contraindication: N/A - Med Ordered
[2025-07-30 08:47] LABS: Anion Gap 12 (12-20); Blood Urea Nitrogen 17 mg/dL (9-16); Calcium 8.4 mg/dL (8.4-10.2); Carbon Dioxide 25 mmol/L (22-29); Chloride 107 mmol/L (96-108); Potassium 3.7 mmol/L (3.3-5.1); Sodium 140 mmol/L (135-145)
[2025-07-30] MEDS: Aspirin Enteric Coated 81 MG TABLET.DR PO (09:30)
[2025-07-30] MEDS: 0.9 % Sodium Chloride Flush 3 ML SYRINGE IVFLUSH ×2 (09:32→19:55)
[2025-07-30 11:38] LABS: Glucose, Whole Blood 143 mg/dL (60-115)
[2025-07-30 14:21] LABS: Appearance Urine Clear; Glucose Urine UA Negative (Negative); PH 6.5 (5.0-9.0); Specific Gravity - Urine <= 1.005 (1.005-1.025); UMIC TRIGGER UA YES
[2025-07-30 16:30] LABS: Glucose, Whole Blood 113 mg/dL (60-115)
[2025-07-30 21:06] LABS: Glucose, Whole Blood 145 mg/dL (60-115)
[2025-07-31] VITALS (11 sets, daily range): BP systolic 123–140; BP diastolic 60–70; PULSE 62–78; RESP 16–20; TEMP 36.2–36.5; O2SAT 94–98
--- NOTE | 2025-07-31 00:16 | P.CNID_ITS ---
History of Present Illness Data of Consult Service Date: 07/30/25 Requesting physician: Kayla Copeland Primary Care Provider: Yolanda Jack MD HPI Reason for consult: sepsis,Pseudomonas bacteremia She presents with day worsening redness streaking up right leg. She was sent over from Wound Care She had temperature 100.8 and tachycardia over 100. 1/2 blood cultures Pseudomonas auruginosa blood There is no urine culture back yet but she has indwelling Duncan changed by [facility] monthly. There is no hematuria. She has had enterococcus faecalis OM past and feet better but there is chronic lymphedema. She feels right leg about 75% better than when came in and streaking only upper leg into groin. Review of Systems 2 Review of Systems: Yes all other systems are reviewed and are negative PMFSH Past Medical History Medical History Scoliosis Arthritis Diabetes GERD (gastroesophageal reflux disease) Numbness Elevated cholesterol Bowel incontinence Chronic indwelling Duncan catheter Osteomyelitis Bunion of right foot TONI (obstructive sleep apnea) Hyperglycemia Morbid obesity Foot callus Neuropathy Edema Urinary retention Plantar fasciitis Obesity Osteoarthritis Spinal stenosis Hypertension Family History Family History Father History of heart attack Mother HTN (hypertension) Stroke Brother Stomach cancer Brother History of heart attack HTN (hypertension) Diabetes mellitus Lung cancer Brother Bladder cancer Heart attack Family history: reviewed and not pertinent Surgical History Surgical History Hx of skin graft (04/14/25) History of esophagogastroduodenoscopy (EGD) Hx of ligation of vein History of carpal tunnel surgery H/O foot surgery History of tonsillectomy H/O colonoscopy History of lumbar surgery Social History Social History Household Members: None Housing: House Are you a primary workforce investment act career manager to a significant other at home: No Do you presently have visiting nurse or other home services: Yes Alcohol intake: never Patient Tobacco Use Status: Never used Tobacco e-Cigarette/Vaping Use: Never Used Second Hand Smoke Exposure: No service: No Current occupational status: disabled Current occupation: right hand dominant Cognitive needs: No Hearing needs: No Vision needs: Yes Meds Allergies Allergy/AdvReac Type Severity Reaction Status Date / Time Adhesive Bandages Allergy Unknown rash Verified 07/27/25 13:04 adhesive tape (TAPE,ADHESIVE) Allergy Unknown RASH Verified 07/27/25 13:04 amlodipine Allergy Unknown edema Verified 07/27/25 13:04 atenolol Allergy Unknown Bradycardia Verified 07/27/25 13:04 bisoprolol (From Zebeta) Allergy Unknown Diarrhea Verified 07/27/25 13:04 labetalol Allergy Unknown n/a Verified 07/27/25 13:04 latex (LATEX) Allergy Unknown RASH Verified 07/27/25 13:04 metformin AdvReac Intermediate Diarrhea Verified 07/27/25 13:04 semaglutide (From Ozempic) AdvReac Intermediate Diarrhea Verified 07/27/25 13:04 vicodin Allergy Unknown heart Uncoded 06/02/25 15:09 palpitation actos AdvReac Intermediate Abdominal Uncoded 06/02/25 15:09 Pain Active Medications: Current Medications Acetaminophen (Acetaminophen 325 Mg Tablet) 650 mg PO Q6H PRN PRN Reason: Pain, Mild 1-3,fever,headache Acetaminophen (Acetaminophen 325 Mg Tablet) 975 mg PO Q12H [facility] Last Admin: 07/30/25 19:51 Dose: 975 mg Aspirin (Aspirin Enteric Coated 81 Mg Tablet.) 81 mg PO DAILY [facility] Last Admin: 07/30/25 09:30 Dose: 81 mg Atorvastatin Calcium (Atorvastatin Calcium 40 Mg Tablet) 40 mg PO DAILY [facility] Last Admin: 07/30/25 09:31 Dose: 40 mg Calcium Carbonate (Calcium Carbonate 750 Mg Tab.Chew) 750 mg PO Q4H PRN PRN Reason: Heartburn Carvedilol (Carvedilol 6.25 Mg Tablet) 6.25 mg PO BID [facility]; Protocol Last Admin: 07/30/25 19:54 Dose: 6.25 mg Celecoxib (Celecoxib 200 Mg Capsule) 200 mg PO BID [facility] Last Admin: 07/30/25 19:53 Dose: 200 mg Dextrose (Dextrose 50 % 25 Gm/50 Ml Syringe) 25 gm IVPUSH Q15M PRN; Protocol PRN Reason: per Hypoglycemia Standing Ord. Doxazosin Mesylate (Doxazosin Mesylate 2 Mg Tablet) 16 mg PO BEDTIME [facility] Last Admin: 07/30/25 19:53 Dose: 16 mg Enoxaparin Sodium (Enoxaparin Sodium 40 Mg/0.4 Ml Syringe) 40 mg SUBCUT Q24H [facility] Last Admin: 07/30/25 19:51 Dose: 40 mg Gabapentin (Gabapentin 300 Mg Capsule) 900 mg PO BEDTIME [facility] Last Admin: 07/30/25 19:53 Dose: 900 mg Glucose (Glucose Gel 15 Gm Gel..Gram.) 15 gm PO Q15M PRN; Protocol PRN Reason: per Hypoglycemia Standing Ord. Hydralazine HCl (Hydralazine Hcl 50 Mg Tablet) 50 mg PO BID [facility]; Protocol Last Admin: 07/30/25 19:54 Dose: 50 mg Piperacillin Sod/Tazobactam (Sod 3.375 gm/ Sodium Chloride) 50 mls @ 100 mls/hr IV Q6H [facility] Last Infusion: 07/30/25 21:09 Dose: Infused Vancomycin HCl 1,000 mg/ (Sodium Chloride) 270 mls @ 270 mls/hr IV Q12H [facility] Last Infusion: 07/30/25 16:11 Dose: Infused Insulin Human Lispro (Insulin Lispro 100 Unit/Ml 3 Ml Vial) 0 unit SUBCUT QIDACHS [facility]; Protocol Last Admin: 07/30/25 21:39 Dose: Not Given Magnesium Hydroxide (Milk Of Magnesia 30 Ml Oral.Susp) 30 ml PO DAILY PRN PRN Reason: Constipation Magnesium Oxide (Magnesium Oxide 400 Mg Tablet) 400 mg PO DAILY [facility] Last Admin: 07/30/25 09:31 Dose: 400 mg Melatonin (Melatonin 3 Mg Tablet) 6 mg PO BEDTIME PRN PRN Reason: Insomnia Multivitamins/Vitamin C (Multivitamin Tablet) 1 tab PO DAILY [facility] Last Admin: 07/30/25 09:30 Dose: 1 tab Nystatin (Nystatin Powder 15 Gm Bottle) 1 appl TOPICAL BID PRN; Protocol PRN Reason: Rash Omeprazole (Omeprazole 20 Mg Capsule.Dr) 20 mg PO DAILY@0630 [facility] Last Admin: 07/30/25 05:53 Dose: 20 mg Pharmacy Consult (Consult Rx Vancomycin Dosing) 1 each MISCELLANE DAILY PRN PRN Reason: Consult order Pregabalin (Pregabalin 150 Mg Capsule) 150 mg PO BID [facility] Last Admin: 07/30/25 19:53 Dose: 150 mg Sodium Chloride (0.9 % Sodium Chloride Flush 3 Ml Syringe) 3 ml IVFLUSH QSHIFT [facility] Last Admin: 07/30/25 19:55 Dose: 3 ml Vitamin D (Cholecalciferol (Vitamin D3) 25 Mcg Tablet) 25 mcg PO DAILY [facility] Last Admin: 07/30/25 09:31 Dose: 25 mcg Home Medications ?Medication ?Instructions ?Recorded ?Confirmed ?Last Taken ?Type aspirin 81 mg tablet,delayed 81 mg PO DAILY 09/15/20 0 07/27/25 07/27/25 History release cholecalciferol (vitamin D3) 25 25 mcg PO DAILY 07/27/25 07/27/25 History mcg (1,000 unit) capsule magnesium oxide 500 mg capsule 500 mg PO DAILY 0 07/27/25 07/27/25 History omega 6-vkk-cuw-fish oil 1,000 mg 1 cap PO BID 0 07/27/25 07/27/25 History (120 mg-180 mg) capsule (Fish Oil) acetaminophen 650 mg 1,300 mg PO Q12H 01/01/2207/27/25 History tablet,extended release multivitamin 1 tab PO DAILY 01/01/2207/1107/27/25 History omeprazole 20 mg capsule,delayed 20 mg PO DAILY@0630 0 01/01/22 07/27/25 07/27/25 History release Lactobacillus acidophilus 1,000 mmu cells PO DAILY 07/27/25 07/27/25 History (Acidophilus capsule) rosuvastatin 10 mg tablet 10 mg PO DAILY 04/07/2507/1107/27/25 History terazosin 10 mg capsule 20 mg PO BEDTIME 04/07/2507/26/25 History nystatin 100,000 unit/gram topical 1 appl topical BID PRN Rash 06/20/25 07/27/25 Unknown History powder (Nystop) tirzepatide 7.5 mg/0.5 mL 7.5 mg subcut MO 07/27/2507/25/25 History subcutaneous pen injector (Marlee) Physical Exam 2 Vital Signs: Vital Signs: Last Vital Signs Temp 97.1 F 07/30/25 20:00 Pulse 88 07/30/25 20:00 Resp 17 07/30/25 20:00 BP 143/63 H 07/30/25 20:00 Pulse Ox 96 07/30/25 20:00 O2 Del Method Room Air 07/30/25 20:00 O2 Flow Rate 17 07/30/25 03:11 BMI result Body Mass Index 58.6 Const: General: cooperative HEENT: Head: Yes normal to inspection Face and sinus: Yes normal facial exam Mouth: Normal oral and palatal mucosa present Teeth and gingiva: d entition normal Eyes: General: appearance normal, both eyes and all related structures P upils: Equal, round and reactive pupils present Resp: Effort & Inspection: normal respiratory effort Cardio: Rate: regular rate Rhythm: regular rhythm GI: Palpation (GI): Soft to palpation and nontender : General: Yes no CVA tenderness Back/Spine/Pelvis: Back: no CVA tenderness Skin: General skin exam: no rashes or lesions noted Neuro: General: moves all extremities Cranial nerves: Yes Equal, round and reactive pupils present Extrem: Other: streaking right leg up groin area 1/4 way down only moist right great toe wound,but closed Psych: Appearance: grossly normal Results Labs 07/28/25 06:26 07/30/25 05:38 Labs: BMP 07/30/25 05:38 Sodium 140 Potassium 3.7 Chloride 107 Carbon Dioxide 25 BUN 17 H Creatinine 0.82 Calcium 8.4 Urine 07/30/25 Range/Units 13:52 Urine Color Yellow Urine Appearance Clear Urine pH 6.5 (5.0-9.0) Ur Specific [place] <= 1.005 (1.005-1.025) Urine Protein Negative (Neg-Trace) mg/dL Urine Glucose (UA) Negative (Negative) mg/dL Microbiology Microbiology Results: Microbiology 07/27/25 14:35 Blood - Venous Blood Culture - Final Pseudomonas aeruginosa 07/27/25 13:30 Blood - Venous Blood Culture - Preliminary No growth after 48 hours. Assessment and Plan (1) Sepsis: Qualifiers: Sepsis acute organ dysfunction status: without acute organ dysfunction Sepsis type: sepsis due to unspecified organism Qualified Code(s): A41.9 - Sepsis, unspecified organism Status: Acute Plan Pseudomonas sepsis Likely from leg,however foot wound appears healing It is getting better Would continue piperacillin/tazobactam at this time. Would stop Vancomycin tomorrow if no gram positive bacteremia seen. Would check TTE. Would switch to Cipro 500 mg po bid when inproved when streaking up leg gone and give total 21 days antibiotics unless endocarditis then reassess,maybe Zosyn and Cipro four weeks. Recheck blood cultures if not done ensure clearance. Check MRI right foot focus on lateral great toe area if not done recently make sure no OM and adjust medication if is,possible Cipro and Zosyn six weeks.
[2025-07-31 07:43] LABS: Glucose, Whole Blood 121 mg/dL (60-115)
[2025-07-31 08:05] LABS: Creatinine Clr Calc Pharmacy 88.5; Estimated Glomerular Filt Rate 59
[2025-07-31] MEDS: Aspirin Enteric Coated 81 MG TABLET.DR PO (08:38)
[2025-07-31 11:35] LABS: Glucose, Whole Blood 149 mg/dL (60-115)
--- NOTE | 2025-07-31 13:19 | P.PNIM_ITS ---
Subjective Subjective Date of Service: 07/31/25 Interval History: leg cellulitis bacteremia -pseudomonas Review of Systems leg erythema seems improving no fevers Review of Systems: Yes all other systems are reviewed and are negative Physical Exam 2 Exam: Exam: Appearance: Alert.? Oriented X3.? Morbidly obese.? cvs: rrr, [id number] . res: clear to auscultation ,no rhonchii or wheezing abd: no rebound or guarding ,nt, bs present. ext right leg erythema/pain-significant area from upper thigh to lower leg. neuro: axo3 , nonfocal Vital Signs: Vital Signs: Last Vital Signs Temp 97.4 F 07/31/25 12:00 Pulse 66 07/31/25 12:00 Resp 20 07/31/25 12:00 BP 123/60 07/31/25 12:00 Pulse Ox 96 07/31/25 12:00 O2 Del Method Room Air 07/31/25 12:00 O2 Flow Rate 17 07/30/25 03:11 BMI result Body Mass Index 58.6 Objective Data Active Medications Acetaminophen (Acetaminophen 325 Mg Tablet) 650 mg PO Q6H PRN PRN Reason: Pain, Mild 1-3,fever,headache Acetaminophen (Acetaminophen 325 Mg Tablet) 975 mg PO Q12H [facility] Last Admin: 07/31/25 06:52 Dose: 975 mg Documented By: GASTON Aspirin (Aspirin Enteric Coated 81 Mg Tablet.) 81 mg PO DAILY [facility] Last Admin: 07/31/25 08:38 Dose: 81 mg Documented By: ISIAH Atorvastatin Calcium (Atorvastatin Calcium 40 Mg Tablet) 40 mg PO DAILY [facility] Last Admin: 07/31/25 08:38 Dose: 40 mg Documented By: ISIAH Calcium Carbonate (Calcium Carbonate 750 Mg Tab.Chew) 750 mg PO Q4H PRN PRN Reason: Heartburn Carvedilol (Carvedilol 6.25 Mg Tablet) 6.25 mg PO BID [facility]; Protocol Last Admin: 07/31/25 08:38 Dose: 6.25 mg Documented By: ISIAH Celecoxib (Celecoxib 200 Mg Capsule) 200 mg PO BID [facility] Last Admin: 07/31/25 08:39 Dose: 200 mg Documented By: ISIAH Dextrose (Dextrose 50 % 25 Gm/50 Ml Syringe) 25 gm IVPUSH Q15M PRN; Protocol PRN Reason: per Hypoglycemia Standing Ord. Doxazosin Mesylate (Doxazosin Mesylate 2 Mg Tablet) 16 mg PO BEDTIME [facility] Last Admin: 07/30/25 19:53 Dose: 16 mg Documented By: GASTON Enoxaparin Sodium (Enoxaparin Sodium 40 Mg/0.4 Ml Syringe) 40 mg SUBCUT Q24H [facility] Last Admin: 07/30/25 19:51 Dose: 40 mg Documented By: GASTON Gabapentin (Gabapentin 300 Mg Capsule) 900 mg PO BEDTIME [facility] Last Admin: 07/30/25 19:53 Dose: 900 mg Documented By: GASTON Glucose (Glucose Gel 15 Gm Gel..Gram.) 15 gm PO Q15M PRN; Protocol PRN Reason: per Hypoglycemia Standing Ord. Hydralazine HCl (Hydralazine Hcl 50 Mg Tablet) 50 mg PO BID [facility]; Protocol Last Admin: 07/31/25 08:38 Dose: 50 mg Documented By: ISIAH Piperacillin Sod/Tazobactam (Sod 3.375 gm/ Sodium Chloride) 50 mls @ 100 mls/hr IV Q6H [facility] Last Infusion: 07/31/25 09:04 Dose: Infused Documented By: ISIAH Ciprofloxacin (Cipro) 400 mg in 200 mls @ 200 mls/hr IV Q12H [facility] Last Infusion: 07/31/25 11:29 Dose: Infused Documented By: ISIAH Insulin Human Lispro (Insulin Lispro 100 Unit/Ml 3 Ml Vial) 0 unit SUBCUT QIDACHS [facility]; Protocol Last Admin: 07/31/25 12:26 Dose: Not Given Documented By: ISIAH Non-Admin Reason: No Insulin Coverage Magnesium Hydroxide (Milk Of Magnesia 30 Ml Oral.Susp) 30 ml PO DAILY PRN PRN Reason: Constipation Magnesium Oxide (Magnesium Oxide 400 Mg Tablet) 400 mg PO DAILY [facility] Last Admin: 07/31/25 08:38 Dose: 400 mg Documented By: ISIAH Melatonin (Melatonin 3 Mg Tablet) 6 mg PO BEDTIME PRN PRN Reason: Insomnia Multivitamins/Vitamin C (Multivitamin Tablet) 1 tab PO DAILY [facility] Last Admin: 07/31/25 08:38 Dose: 1 tab Documented By: ISIAH Nystatin (Nystatin Powder 15 Gm Bottle) 1 appl TOPICAL BID PRN; Protocol PRN Reason: Rash Omeprazole (Omeprazole 20 Mg Capsule.) 20 mg PO DAILY@0630 [facility] Last Admin: 07/31/25 06:52 Dose: 20 mg Documented By: GASTON Pregabalin (Pregabalin 150 Mg Capsule) 150 mg PO BID [facility] Last Admin: 07/31/25 08:39 Dose: 150 mg Documented By: ISIAH Sodium Chloride (0.9 % Sodium Chloride Flush 3 Ml Syringe) 3 ml IVFLUSH QSHIFT [facility] Last Admin: 07/31/25 08:41 Dose: Not Given Documented By: ISIAH Non-Admin Reason: IV Running Vitamin D (Cholecalciferol (Vitamin D3) 25 Mcg Tablet) 25 mcg PO DAILY [facility] Last Admin: 07/31/25 08:38 Dose: 25 mcg Documented By: ISIAH Labs 07/28/25 06:26 07/31/25 06:41 Labs: Laboratory Results - last 24 hr 07/30/25 07/30/25 07/30/25 12:52 13:52 16:22 Hold Purple Top Estim Creat Clear Calc Estimated GFR POC Glucose 113 Urine Color Yellow Urine Appearance Clear Urine pH 6.5 Ur Specific [place] <= 1.005 Urine Protein Negative Urine Glucose (UA) Negative Urine Ketones Negative Urine Blood Negative Urine Nitrite Negative Ur Leukocyte Esterase Small (1+) H Urine RBC 0-2 Urine WBC 0-5 Ur Squamous Epith Cells 0-2 Urine Bacteria None Seen Hyaline Casts 3-5 Random Vancomycin 17.8 07/30/25 07/31/25 07/31/25 20:59 06:41 07:36 Hold Purple Top SEE NOTE Estim Creat Clear Calc 88.5 Estimated GFR 59 POC Glucose 145 H 121 H Urine Color Urine Appearance Urine pH Ur Specific [place] Urine Protein Urine Glucose (UA) Urine Ketones Urine Blood Urine Nitrite Ur Leukocyte Esterase Urine RBC Urine WBC Ur Squamous Epith Cells Urine Bacteria Hyaline Casts Random Vancomycin 07/31/25 11:31 Hold Purple Top Estim Creat Clear Calc Estimated GFR POC Glucose 149 H Urine Color Urine Appearance Urine pH Ur Specific [place] Urine Protein Urine Glucose (UA) Urine Ketones Urine Blood Urine Nitrite Ur Leukocyte Esterase Urine RBC Urine WBC Ur Squamous Epith Cells Urine Bacteria Hyaline Casts Random Vancomycin 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 Pt is admitted to the hospital for treatment and further evaluation of right lower extremity cellulitis with sepsis. Right lower extremity cellulitis with sepsis Meets sepsis criteria with leukocytosis, tachycardia; low-grade fever, lactic acid WNL Pt given IVF and started on broad-spectrum antibiotics in the ED continue vancomycin/Zosyn started 07/27/2025 Follow blood cultures:11/11 : peusomonas venous dupplex:No evidence of acute DVT in the bilateral lower extremities. ID eval noted:continue piperacillin/tazobactam at this time,off Vancomycin tomorrow - no gram positive bacteremia seen. will add TTE and check MRI right foot focus on lateral great toe. plan: Would switch to Cipro 500 mg po bid when inproved when streaking up leg gone and give total 21 days antibiotics unless endocarditis then reassess,maybe Zosyn and Cipro four weeks. Recheck blood cultures if not done ensure clearance. Check MRI right foot focus on lateral great toe area if not done recently make sure no OM and adjust medication if is,possible Cipro and Zosyn six weeks Chronic bilateral foot ulcers S/p skin grafting by Dr. Lopez in April seen by surgery-recommended continue above management. Wound care consult: Buttock:Chronic MASD (Moisture Associated Skin Damage) : b/l foot wounds: 1. Turn and Reposition every 2 hours and as needed for patient comfort.? Use pillows or wedges to support off loading positions. 2. Off Load all bony prominences with use of pillows and heel boots if needed.? Apply Preventative foams where needed. ? 3. Monitor for incontinence and moisture control, use barrier creams when needed for prevention and treatment. 4. Provide adequate and supplemental nutrition.? 5. Order low air loss mattress. 6. When applicable maintain blood glucose levels per Providers order. Buttock - Off Load Pressure with Q2 hr turns and use of pillows - Cleanse with PH balance spray or wipes, pat dry. ?Apply thin layer of barrier cream to affected area.? Apply twice daily and Reapply thin layer PRN after each episode of incontinence. Bilateral Feet - Elevate heels off of bed surface with pillows.? Float heels off of pillows.? Cleanse with saline, pat dry. ?Apply Iodosorb / Iodoflex to wound bed cover with gauze and tape. ?Change every other day.?? Iodoflex left at bedside. Note the Iodoflex will be applied brown and over the course of time as the Iodine is absorbed into the wound bed the color will change to yellow / cream signifying time to replace.?? At time of discharge patient should continue Iodoflex until out pt follow up with wound clinic. ?Iodoflex can be obtained from Wound Care Nurse / Office this is not stocked on the units. HTN Continue carvedilol, hydralazine, irbesartan Chronic lower extremity edema Hold furosemide, spironolactone HLD Continue statin, aspirin Diet-controlled diabetes type 2 On Mounjaro at home Diabetic diet GERD Continue PPI TONI On BiPAP at night generalised weak-added pt eval. Full Code DVT Prophylaxis: Lovenox need for hospitalization for treatment of?right lower extremity cellulitis with sepsis that will require IV antibiotics , Pseudomonas bacteremia: Workup including MRI foot, echo pending. ID follow-up Quality Stroke Does the patient have a stroke diagnosis?: No VTE Prior VTE?: No VTE Risk Level:: Medical - moderate - high VTE Device Contraindication: N/A - Device Ordered VTE Drug Contraindication: N/A - Med Ordered
[2025-07-31] MEDS: 0.9 % Sodium Chloride Flush 3 ML SYRINGE IVFLUSH (15:47)
--- NOTE | 2025-07-31 15:48 | P.CDIM_ITS ---
PROVIDER RESPONSE TEXT: To clarify, the appropriate diagnosis supported by the clinical indicators: Yes, right lower extremity cellulitis is related to / associated with / due to DM 2 QUERY TEXT: PHYSICIAN'S DOCUMENTATION REQUEST Date of Query: 07/29/2025 07:16 AM EDT Patient Name: Gina Milan Admit Date: 07/27/2025 Dear Kayla Copeland MD, A review of the medical record indicates additional documentation may be needed. Please review below and update the documentation accordingly. Documentation includes the conditions of right lower extremity cellulitis and DM2. Clinical Indicators: IVF, IV Vancomycin, IV Zosyn Please clarify the relationship between these conditions: Yes, right lower extremity cellulitis is related to / associated with / due to DM 2 No, right lower extremity cellulitis is not related to / associated with / due to DM 2 Other (explain) Clinically unable to determine (explain) Thank you, Nadege Whitlock RN Use of terms such as suspected, likely, concern for, or probable (associated with a specific diagnosis that is being evaluated, monitored, or treated as if it exists) are acceptable and can be coded in the inpatient setting, when documented at the time of discharge. Please use your independent medical judgment in providing your response. THIS QUERY IS PART OF THE PERMANENT MEDICAL RECORD
[2025-07-31 16:28] LABS: Glucose, Whole Blood 117 mg/dL (60-115)
[2025-07-31 21:19] LABS: Glucose, Whole Blood 120 mg/dL (60-115)
[2025-08-01 04:00] VITALS: BP 139/76; PULSE 78; RESP 16; TEMP 36.7; O2SAT 94
--- NOTE | 2025-08-01 07:00 | CA_ITS ---
Transthoracic Echocardiogram Patient (Last, First, Middle): Gina Milan, Gender: Female Date of : 1960 Age: 65 Procedure Date: 08/01/2025 Procedure Type: Transthoracic Echocardiogram [place] [facility] [place]: 162. cm Weight: 154.68 kg BSA: 2.45 m2 Heart Rate: 68 bpm BP: 140 / 63 mmHg Conveyor Feeder: SHANTE Referring MD: Kayla Copeland MD Symptoms: Bactermia Study Quality: Fair w/Contrast ECG Rhythm: Sinus Conclusions: - Normal left ventricular size and systolic function. There is mildly increased left ventricular wall thickness. The visually estimated ejection fraction is between 55-60%. - Poor 2 D assessment of the valves. Findings Procedure Information Contrast agent, definity, is being given per protocol without apparent complications. Left Ventricle Normal left ventricular size and systolic function. There is mildly increased left ventricular wall thickness. The visually estimated ejection fraction is between 55-60%. Regional wall motion abnormalities can not be excluded due to suboptimal endocardial definition. Diastolic function is indeterminate on the basis of available data. Right Ventricle Normal right ventricular cavity size and systolic function. Atria The left atrium was not well visualized. Aortic Valve The aortic valve was not well visualized. There is no aortic valve stenosis. There is no aortic valve regurgitation. Mitral Valve The mitral valve appears normal. There is no mitral valve regurgitation. There is no mitral valve stenosis. Pulmonic Valve The pulmonic valve was not well visualized. Tricuspid Valve Likely normal tricuspid valve structure and function. Tricuspid regurgitation envelope is inadequate for calculation of right ventricular systolic pressure. Mildly elevated right atrial pressure. Great Vessels All visible segments of the aorta are normal in size. Venous The inferior vena cava is dilated and collapses greater than 50% with inspiration. Pericardium/Pleural There is no evidence of pericardial effusion. Prior Study Comparison No significant change compared to prior study dated: 04/30/2023. Recommendations, Care & Conclusions Consider a JASON if clinically appropriate. Measurements 2D Linear Measurements IVSd: 0.90 0.6-0.9/0.6-1.0 cm LVIDd: 5.88 3.9-5.3/4.2-5.9 cm LVIDd Index: 2.40 2.4-3.2/2.2-3.1 cm/m2 LVIDs: 3.65 2.0-3.6 cm LVPWd: 1.13 0.7-1.1 cm LA Diam: 3.20 2.7-3.8/3.0-4.0 cm LAIDs Index: 1.31 1.5-2.3 cm/m2 LV Mass: 303.28 67-162/88-224 g LV Mass Index: 123.79 43-95/49-115 g/m2 LVOT Diam: 2.20 3.0+(-)1.3 cm 2D Systolic Function EF 4C: 54.80 >55% EF 2C: 59.70 >55% EF BiP: 55.20 >55% Mitral Valve MV Pk E: 0.95 MV PK A: 0.88 MV Decel Time: 224.00 E/A: 1.10 E'Lateral: 9.03 E'Medial: 9.68 E/E' Med: 9.80 E/E' Lat: 10.50 PHT: 44.00 MVA PHT: 5.00 Decel Rabun: 2.30 Aortic Valve AoV Pk Frankie: 1.72 AoV Mn Frankie: 1.21 AoV VTI: 0.37 AoV Pk Grad: 12.00 Aov Mn Grad: 7.00 AMANDA Cont.VTI: 2.41 LVOT LVOT Pk Frankie: 1.18 LVOT Mn Frankie: 0.78 LVOT VTI: 0.24 LVOT Pk Grad: 6.00 LVOT Mn Grad: 3.00 LVOT Diam: 2.20 LVOT Area: 3.80 Diastolic Function MV Pk E: 0.95 MV Pk A: 0.88 E/A: 1.10 E'Medial: 9.68 E/E' Med: 9.80 E' Laterial: 9.03 E/E' Lat: 10.50 Right Ventricle TAPSE (mm): 41.10 TVS' Frankie: 17.30 Tricuspid Valve RA Press: 8.00 Great Vessels Aorta Sinus of Valsalva: 3.30 2.0-3.5 cm Ao Asc: 3.10 2.1-3.4 cm Ao Arch: 2.80 Pulmonary Veins Pulm Vein S/D 1.10 Pulmonary Valve PV Pk Frankie: 1.24 Peak PV Grad: 6.00 Updated in Other Vendor System with Status of Final Jalen Gu MD electronically signed on 08/02/2025 7:34:49 PM with status of Final
[2025-08-01 07:05] VITALS: BP 140/63; PULSE 63; RESP 18; TEMP 36.3; O2SAT 96
[2025-08-01 07:05] LABS: Glucose, Whole Blood 113 mg/dL (60-115)
[2025-08-01 07:37] LABS: Creatinine Clr Calc Pharmacy 94.4; Estimated Glomerular Filt Rate > 60
[2025-08-01] MEDS: Aspirin Enteric Coated 81 MG TABLET.DR PO (07:55)
[2025-08-01] MEDS: 0.9 % Sodium Chloride Flush 3 ML SYRINGE IVFLUSH ×3 (08:05→20:28)
--- NOTE | 2025-08-01 11:09 | MHC.CM.PN ---
EMR REVIEWED, PT W/CELLULITIS OR R THIGH, NOW W/+BLOOD CULTURES, BC'S REDRAWN 07/31 AND REMAIN PENDING, ID RECOMMENDING PO CIPRO ONCE CULTURES CLEAR UNLESS ENDOCARDITIS, ECHO PENDING, CM WILL CONT TO FOLLOW DC NEEDS.
[2025-08-01 11:13] LABS: Glucose, Whole Blood 164 mg/dL (60-115)
[2025-08-01 11:36] VITALS: BP 131/70; PULSE 63; RESP 16; TEMP 36.2
[2025-08-01 16:00] VITALS: BP 150/61; PULSE 69; RESP 16; TEMP 36.6; O2SAT 96
[2025-08-01 16:19] LABS: Glucose, Whole Blood 109 mg/dL (60-115)
--- NOTE | 2025-08-01 18:21 | PC.NURSE ---
Called pharmacy to bring Nystatin powder for tonight.
--- NOTE | 2025-08-01 18:47 | P.PNIM_ITS ---
Subjective Subjective Date of Service: 08/01/25 Interval History: leg cellulitis bacteremia -pseudomonas Review of Systems leg erythema seems improving no fevers Review of Systems: Yes all other systems are reviewed and are negative Physical Exam 2 Exam: Exam: Appearance: Alert.? Oriented X3.? Morbidly obese.? cvs: rrr, [id number] . res: clear to auscultation ,no rhonchii or wheezing abd: no rebound or guarding ,nt, bs present. ext right leg erythema/pain-significant area from upper thigh to lower leg. neuro: axo3 , nonfocal Vital Signs: Vital Signs: Last Vital Signs Temp 97.9 F 08/01/25 16:00 Pulse 69 08/01/25 16:00 Resp 16 08/01/25 16:00 BP 150/61 H 08/01/25 16:00 Pulse Ox 96 08/01/25 16:00 O2 Del Method Room Air 08/01/25 16:00 O2 Flow Rate 17 07/30/25 03:11 BMI result Body Mass Index 58.6 Objective Data Active Medications Acetaminophen (Acetaminophen 325 Mg Tablet) 650 mg PO Q6H PRN PRN Reason: Pain, Mild 1-3,fever,headache Acetaminophen (Acetaminophen 325 Mg Tablet) 975 mg PO Q12H [facility] Aspirin (Aspirin Enteric Coated 81 Mg Tablet.) 81 mg PO DAILY [facility] Last Admin: 08/01/25 07:55 Dose: 81 mg Documented By: FELIPA Atorvastatin Calcium (Atorvastatin Calcium 40 Mg Tablet) 40 mg PO DAILY [facility] Last Admin: 08/01/25 07:55 Dose: 40 mg Documented By: FELIPA Calcium Carbonate (Calcium Carbonate 750 Mg Tab.Chew) 750 mg PO Q4H PRN PRN Reason: Heartburn Carvedilol (Carvedilol 6.25 Mg Tablet) 6.25 mg PO BID [facility]; Protocol Last Admin: 08/01/25 07:55 Dose: 6.25 mg Documented By: FELIPA Celecoxib (Celecoxib 200 Mg Capsule) 200 mg PO BID [facility] Last Admin: 08/01/25 07:54 Dose: 200 mg Documented By: FELIPA Dextrose (Dextrose 50 % 25 Gm/50 Ml Syringe) 25 gm IVPUSH Q15M PRN; Protocol PRN Reason: per Hypoglycemia Standing Ord. Doxazosin Mesylate (Doxazosin Mesylate 2 Mg Tablet) 16 mg PO BEDTIME [facility] Last Admin: 07/31/25 21:16 Dose: 16 mg Documented By: BRIAN Enoxaparin Sodium (Enoxaparin Sodium 40 Mg/0.4 Ml Syringe) 40 mg SUBCUT Q24H [facility] Last Admin: 08/01/25 18:07 Dose: 40 mg Documented By: FELIPA Gabapentin (Gabapentin 300 Mg Capsule) 900 mg PO BEDTIME [facility] Last Admin: 07/31/25 21:18 Dose: 900 mg Documented By: BRIAN Glucose (Glucose Gel 15 Gm Gel..Gram.) 15 gm PO Q15M PRN; Protocol PRN Reason: per Hypoglycemia Standing Ord. Hydralazine HCl (Hydralazine Hcl 50 Mg Tablet) 50 mg PO BID [facility]; Protocol Last Admin: 08/01/25 07:54 Dose: 50 mg Documented By: FELIPA Piperacillin Sod/Tazobactam (Sod 3.375 gm/ Sodium Chloride) 50 mls @ 100 mls/hr IV Q6H [facility] Last Infusion: 08/01/25 16:53 Dose: Infused Documented By: FELIPA Ciprofloxacin (Cipro) 400 mg in 200 mls @ 200 mls/hr IV Q12H [facility] Last Infusion: 08/01/25 14:21 Dose: Infused Documented By: FELIPA Insulin Human Lispro (Insulin Lispro 100 Unit/Ml 3 Ml Vial) 0 unit SUBCUT QIDACHS [facility]; Protocol Last Admin: 08/01/25 16:49 Dose: Not Given Documented By: FELIPA Non-Admin Reason: No Insulin Coverage Magnesium Hydroxide (Milk Of Magnesia 30 Ml Oral.Susp) 30 ml PO DAILY PRN PRN Reason: Constipation Magnesium Oxide (Magnesium Oxide 400 Mg Tablet) 400 mg PO DAILY [facility] Last Admin: 08/01/25 07:55 Dose: 400 mg Documented By: FELIPA Melatonin (Melatonin 3 Mg Tablet) 6 mg PO BEDTIME PRN PRN Reason: Insomnia Multivitamins/Vitamin C (Multivitamin Tablet) 1 tab PO DAILY [facility] Last Admin: 08/01/25 07:55 Dose: 1 tab Documented By: FELIPA Nystatin (Nystatin Powder 15 Gm Bottle) 1 appl TOPICAL BID PRN; Protocol PRN Reason: Rash Nystatin (Nystatin Powder 15 Gm Bottle) 1 appl TOPICAL BID [facility]; Protocol Omeprazole (Omeprazole 20 Mg Capsule.) 20 mg PO DAILY@0630 [facility] Last Admin: 08/01/25 06:39 Dose: 20 mg Documented By: BRIAN Pregabalin (Pregabalin 150 Mg Capsule) 150 mg PO BID [facility] Last Admin: 08/01/25 07:54 Dose: 150 mg Documented By: FELIPA Sodium Chloride (0.9 % Sodium Chloride Flush 3 Ml Syringe) 3 ml IVFLUSH QSHIFT [facility] Last Admin: 08/01/25 15:44 Dose: 3 ml Documented By: FELIPA Vitamin D (Cholecalciferol (Vitamin D3) 25 Mcg Tablet) 25 mcg PO DAILY [facility] Last Admin: 08/01/25 07:55 Dose: 25 mcg Documented By: FELIPA Labs 07/28/25 06:26 08/01/25 06:29 Labs: Laboratory Results - last 24 hr 07/31/25 08/01/25 08/01/25 21:14 06:29 07:01 Hold Purple Top SEE NOTE Estim Creat Clear Calc 94.4 Estimated GFR > 60 POC Glucose 120 H 113 08/01/25 08/01/25 11:10 16:14 Hold Purple Top Estim Creat Clear Calc Estimated GFR POC Glucose 164 H 109 Microbiology Microbiology Results: Microbiology 07/31/25 14:00 Blood Culture - Preliminary Blood - Venous No growth after 24 hours. 07/31/25 14:12 Blood Culture - Preliminary Blood - Venous No growth after 24 hours. 07/27/25 13:30 Blood Culture - Final Blood - Venous No growth after 5 days. 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 Pt is admitted to the hospital for treatment and further evaluation of right lower extremity cellulitis with sepsis. Right lower extremity cellulitis with sepsis Meets sepsis criteria with leukocytosis, tachycardia; low-grade fever, lactic acid WNL Pt given IVF and started on broad-spectrum antibiotics in the ED continue vancomycin/Zosyn started 07/27/2025 Follow blood cultures:11/11 : peusomonas venous dupplex:No evidence of acute DVT in the bilateral lower extremities. ID eval noted:continue piperacillin/tazobactam at this time,off Vancomycin tomorrow - no gram positive bacteremia seen. will add TTE and check MRI right foot focus on lateral great toe. plan: Would switch to Cipro 500 mg po bid when inproved when streaking up leg gone and give total 21 days antibiotics unless endocarditis then reassess,maybe Zosyn and Cipro four weeks. Recheck blood cultures if not done ensure clearance. Check MRI right foot focus on lateral great toe area if not done recently make sure no OM and adjust medication if is,possible Cipro and Zosyn six weeks Chronic bilateral foot ulcers S/p skin grafting by Dr. Lopez in April seen by surgery-recommended continue above management. Wound care consult: Buttock:Chronic MASD (Moisture Associated Skin Damage) : b/l foot wounds: 1. Turn and Reposition every 2 hours and as needed for patient comfort.? Use pillows or wedges to support off loading positions. 2. Off Load all bony prominences with use of pillows and heel boots if needed.? Apply Preventative foams where needed. ? 3. Monitor for incontinence and moisture control, use barrier creams when needed for prevention and treatment. 4. Provide adequate and supplemental nutrition.? 5. Order low air loss mattress. 6. When applicable maintain blood glucose levels per Providers order. Buttock - Off Load Pressure with Q2 hr turns and use of pillows - Cleanse with PH balance spray or wipes, pat dry. ?Apply thin layer of barrier cream to affected area.? Apply twice daily and Reapply thin layer PRN after each episode of incontinence. Bilateral Feet - Elevate heels off of bed surface with pillows.? Float heels off of pillows.? Cleanse with saline, pat dry. ?Apply Iodosorb / Iodoflex to wound bed cover with gauze and tape. ?Change every other day.?? Iodoflex left at bedside. Note the Iodoflex will be applied brown and over the course of time as the Iodine is absorbed into the wound bed the color will change to yellow / cream signifying time to replace.?? At time of discharge patient should continue Iodoflex until out pt follow up with wound clinic. ?Iodoflex can be obtained from Wound Care Nurse / Office this is not stocked on the units. HTN Continue carvedilol, hydralazine, irbesartan Chronic lower extremity edema Hold furosemide, spironolactone HLD Continue statin, aspirin Diet-controlled diabetes type 2 On Mounjaro at home Diabetic diet GERD Continue PPI TONI On BiPAP at night generalised weak-added pt eval. Full Code DVT Prophylaxis: Lovenox need for hospitalization for treatment of?right lower extremity cellulitis with sepsis that will require IV antibiotics , Pseudomonas bacteremia: Workup including MRI foot, echo pending. ID follow-up Quality Stroke Does the patient have a stroke diagnosis?: No VTE Prior VTE?: No VTE Risk Level:: Medical - moderate - high VTE Device Contraindication: N/A - Device Ordered VTE Drug Contraindication: N/A - Med Ordered
[2025-08-01 20:06] VITALS: BP 133/71; PULSE 75; RESP 18; TEMP 36.1; O2SAT 96
[2025-08-01 20:29] LABS: Glucose, Whole Blood 119 mg/dL (60-115)
[2025-08-01 23:01] VITALS: BP 145/66; PULSE 66; RESP 18; TEMP 35.2; O2SAT 94
[2025-08-02] VITALS (8 sets, daily range): BP systolic 129–152; BP diastolic 63–74; PULSE 64–72; RESP 18–20; TEMP 36.1–36.9; O2SAT 96–98
[2025-08-02 08:52] LABS: Calcium 8.6 mg/dL (8.4-10.2); Chloride 107 mmol/L (96-108); Potassium 4.0 mmol/L (3.3-5.1); Sodium 141 mmol/L (135-145)
[2025-08-02] MEDS: Aspirin Enteric Coated 81 MG TABLET.DR PO (09:24)
[2025-08-02] MEDS: 0.9 % Sodium Chloride Flush 3 ML SYRINGE IVFLUSH ×3 (09:25→22:45)
[2025-08-02 11:26] LABS: Glucose, Whole Blood 126 mg/dL (60-115)
--- NOTE | 2025-08-02 12:38 | P.PNID_ITS ---
Subjective Subjective Date of Service: 08/02/25 Critical Care Time (minutes): 15 Comment: she feels leg less red but has sheet irritation and will wear pants MRI ill defined area first MT head Objective Data Labs 07/28/25 06:26 08/02/25 06:11 Labs: Laboratory Results - last 24 hr 08/01/25 08/01/25 08/02/25 16:14 20:25 06:11 Hold Purple Top SEE NOTE Sodium 141 Potassium 4.0 Chloride 107 Carbon Dioxide 26 Anion Gap 12 BUN 18 H Creatinine 1.00 Estim Creat Clear Calc 85.0 Estimated GFR 56 POC Glucose 109 119 H Random Glucose 127 H Calcium 8.6 08/02/25 08/02/25 07:01 11:22 Hold Purple Top Sodium Potassium Chloride Carbon Dioxide Anion Gap BUN Creatinine Estim Creat Clear Calc Estimated GFR POC Glucose 115 126 H Random Glucose Calcium Microbiology Microbiology Results: Microbiology 07/31/25 14:00 Blood - Venous Blood Culture - Preliminary No growth after 24 hours. 07/31/25 14:12 Blood - Venous Blood Culture - Preliminary No growth after 24 hours. 07/27/25 13:30 Blood - Venous Blood Culture - Final No growth after 5 days. 07/27/25 14:35 Blood - Venous Blood Culture - Final Pseudomonas aeruginosa Physical Exam 2 Vital Signs: Vital Signs: Last Vital Signs Temp 97.1 F 08/02/25 11:31 Pulse 64 08/02/25 11:31 Resp 18 08/02/25 11:31 BP 152/66 H 08/02/25 11:31 Pulse Ox 96 08/02/25 11:31 O2 Del Method Room Air 08/02/25 11:31 O2 Flow Rate 17 07/30/25 03:11 BMI result Body Mass Index 58.6 Const: General: cooperative HEENT: Head: Yes normal to inspection Face and sinus: Yes normal facial exam Mouth: Normal oral and palatal mucosa present Teeth and gingiva: d entition normal Eyes: General: appearance normal, both eyes and all related structures P upils: Equal, round and reactive pupils present Resp: Effort & Inspection: normal respiratory effort Cardio: Rate: regular rate Rhythm: regular rhythm GI: Palpation (GI): Soft to palpation and nontender : General: Yes no CVA tenderness Back/Spine/Pelvis: Back: no CVA tenderness Skin: General skin exam: no rashes or lesions noted Neuro: General: moves all extremities Cranial nerves: Yes Equal, round and reactive pupils present Extrem: Other: definite wound 1st MT head still slight cellulitis Psych: Appearance: grossly normal Assessment and Plan Assessment and plan (1) Osteomyelitis: Problem details: She has enterococcus OM,better looking foot Status: Acute (2) Cellulitis of leg, right: Status: Acute Plan Treat as OM,Cipro and Zosyn for six weeks and weekly CBC and creatinine. TTE if not done Follow outpatient. Time Spent With Patient Time: Total time managing care of this patient today ____ minutes.
--- NOTE | 2025-08-02 14:43 | P.PNIM_ITS ---
Subjective Subjective Date of Service: 08/02/25 Interval History: om cellulitis leg Review of Systems denies any new c/o picc line order placed Review of Systems: Yes all other systems are reviewed and are negative Physical Exam 2 Exam: Exam: Appearance: Alert.? Oriented X3.? Morbidly obese.? cvs: [id number], [id number] . res: clear to auscultation ,no rhonchii or wheezing abd: no rebound or guarding ,nt, bs present. ext right leg erythema/pain-significant area from upper thigh to lower leg. neuro: axo3 , nonfocal Vital Signs: Vital Signs: Last Vital Signs Temp 97.1 F 08/02/25 11:31 Pulse 64 08/02/25 11:31 Resp 18 08/02/25 11:31 BP 152/66 H 08/02/25 11:31 Pulse Ox 96 08/02/25 11:31 O2 Del Method Room Air 08/02/25 11:31 O2 Flow Rate 17 07/30/25 03:11 BMI result Body Mass Index 58.6 Objective Data Active Medications Acetaminophen (Acetaminophen 325 Mg Tablet) 650 mg PO Q6H PRN PRN Reason: Pain, Mild 1-3,fever,headache Acetaminophen (Acetaminophen 325 Mg Tablet) 975 mg PO Q12H [facility] Last Admin: 08/02/25 09:24 Dose: 975 mg Documented By: NEIL Aspirin (Aspirin Enteric Coated 81 Mg Tablet.) 81 mg PO DAILY [facility] Last Admin: 08/02/25 09:24 Dose: 81 mg Documented By: NEIL Atorvastatin Calcium (Atorvastatin Calcium 40 Mg Tablet) 40 mg PO DAILY [facility] Last Admin: 08/02/25 09:25 Dose: 40 mg Documented By: NEIL Calcium Carbonate (Calcium Carbonate 750 Mg Tab.Chew) 750 mg PO Q4H PRN PRN Reason: Heartburn Carvedilol (Carvedilol 6.25 Mg Tablet) 6.25 mg PO BID [facility]; Protocol Last Admin: 08/02/25 09:24 Dose: 6.25 mg Documented By: NEIL Celecoxib (Celecoxib 200 Mg Capsule) 200 mg PO BID [facility] Last Admin: 08/02/25 09:24 Dose: 200 mg Documented By: NEIL Dextrose (Dextrose 50 % 25 Gm/50 Ml Syringe) 25 gm IVPUSH Q15M PRN; Protocol PRN Reason: per Hypoglycemia Standing Ord. Doxazosin Mesylate (Doxazosin Mesylate 2 Mg Tablet) 16 mg PO BEDTIME [facility] Last Admin: 08/01/25 20:25 Dose: 16 mg Documented By: BUCK Enoxaparin Sodium (Enoxaparin Sodium 40 Mg/0.4 Ml Syringe) 40 mg SUBCUT Q24H [facility] Last Admin: 08/01/25 18:07 Dose: 40 mg Documented By: FELIPA Gabapentin (Gabapentin 300 Mg Capsule) 900 mg PO BEDTIME [facility] Last Admin: 08/01/25 20:19 Dose: 900 mg Documented By: BUCK Glucose (Glucose Gel 15 Gm Gel..Gram.) 15 gm PO Q15M PRN; Protocol PRN Reason: per Hypoglycemia Standing Ord. Hydralazine HCl (Hydralazine Hcl 50 Mg Tablet) 50 mg PO BID [facility]; Protocol Last Admin: 08/02/25 09:24 Dose: 50 mg Documented By: NEIL Piperacillin Sod/Tazobactam (Sod 3.375 gm/ Sodium Chloride) 50 mls @ 100 mls/hr IV Q6H [facility] Last Infusion: 08/02/25 10:14 Dose: Infused Documented By: NEIL Ciprofloxacin (Cipro) 400 mg in 200 mls @ 200 mls/hr IV Q12H [facility] Last Infusion: 08/02/25 13:58 Dose: Infused Documented By: NEIL Insulin Human Lispro (Insulin Lispro 100 Unit/Ml 3 Ml Vial) 0 unit SUBCUT QIDACHS [facility]; Protocol Last Admin: 08/02/25 11:30 Dose: Not Given Documented By: NEIL Non-Admin Reason: No Insulin Coverage Magnesium Hydroxide (Milk Of Magnesia 30 Ml Oral.Susp) 30 ml PO DAILY PRN PRN Reason: Constipation Magnesium Oxide (Magnesium Oxide 400 Mg Tablet) 400 mg PO DAILY [facility] Last Admin: 08/02/25 09:24 Dose: 400 mg Documented By: NEIL Melatonin (Melatonin 3 Mg Tablet) 6 mg PO BEDTIME PRN PRN Reason: Insomnia Multivitamins/Vitamin C (Multivitamin Tablet) 1 tab PO DAILY [facility] Last Admin: 08/02/25 09:25 Dose: 1 tab Documented By: NEIL Nystatin (Nystatin Powder 15 Gm Bottle) 1 appl TOPICAL BID PRN; Protocol PRN Reason: Rash Nystatin (Nystatin Powder 15 Gm Bottle) 1 appl TOPICAL BID [facility]; Protocol Last Admin: 08/02/25 14:15 Dose: 1 appl Documented By: NEIL Omeprazole (Omeprazole 20 Mg Capsule.) 20 mg PO DAILY@0630 [facility] Last Admin: 08/02/25 05:40 Dose: 20 mg Documented By: BUCK Pregabalin (Pregabalin 150 Mg Capsule) 150 mg PO BID [facility] Last Admin: 08/02/25 09:24 Dose: 150 mg Documented By: NEIL Sodium Chloride (0.9 % Sodium Chloride Flush 3 Ml Syringe) 3 ml IVFLUSH QSHIFT [facility] Last Admin: 08/02/25 09:25 Dose: 3 ml Documented By: NEIL Vitamin D (Cholecalciferol (Vitamin D3) 25 Mcg Tablet) 25 mcg PO DAILY [facility] Last Admin: 08/02/25 09:24 Dose: 25 mcg Documented By: NEIL Labs 07/28/25 06:26 08/02/25 06:11 Labs: Laboratory Results - last 24 hr 08/01/25 08/01/25 08/02/25 16:14 20:25 06:11 Hold Purple Top SEE NOTE Anion Gap 12 Estim Creat Clear Calc 85.0 Estimated GFR 56 POC Glucose 109 119 H Random Glucose 127 H Calcium 8.6 08/02/25 08/02/25 07:01 11:22 Hold Purple Top Anion Gap Estim Creat Clear Calc Estimated GFR POC Glucose 115 126 H Random Glucose Calcium Microbiology Microbiology Results: Microbiology 07/31/25 14:00 Blood Culture - Preliminary Blood - Venous No growth after 24 hours. 07/31/25 14:12 Blood Culture - Preliminary Blood - Venous No growth after 24 hours. 07/27/25 13:30 Blood Culture - Final Blood - Venous No growth after 5 days. 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 Pt is admitted to the hospital for treatment and further evaluation of right lower extremity cellulitis with sepsis. Right lower extremity cellulitis with sepsis Meets sepsis criteria with leukocytosis, tachycardia; low-grade fever, lactic acid WNL Pt given IVF and started on broad-spectrum antibiotics in the ED continue vancomycin/Zosyn started 07/27/2025 Follow blood cultures:11/11 : peusomonas repeat blood cultures neg@24 hrs venous dupplex:No evidence of acute DVT in the bilateral lower extremities. ID eval noted:continue piperacillin/tazobactam at this time,off Vancomycin tomorrow - no gram positive bacteremia seen. MRI right foot focus on lateral great toe-possible OM echo pending plan: Would switch to Cipro 500 mg po bid when inproved when streaking up leg gone and give total 21 days antibiotics unless endocarditis then reassess,maybe Zosyn and Cipro four weeks. Recheck blood cultures if not done ensure clearance. Check MRI right foot focus on lateral great toe area if not done recently make sure no OM and adjust medication if is,possible Cipro and Zosyn six weeks Chronic bilateral foot ulcers S/p skin grafting by Dr. Lopez in April seen by surgery-recommended continue above management. Wound care consult: Buttock:Chronic MASD (Moisture Associated Skin Damage) : b/l foot wounds: 1. Turn and Reposition every 2 hours and as needed for patient comfort.? Use pillows or wedges to support off loading positions. 2. Off Load all bony prominences with use of pillows and heel boots if needed.? Apply Preventative foams where needed. ? 3. Monitor for incontinence and moisture control, use barrier creams when needed for prevention and treatment. 4. Provide adequate and supplemental nutrition.? 5. Order low air loss mattress. 6. When applicable maintain blood glucose levels per Providers order. Buttock - Off Load Pressure with Q2 hr turns and use of pillows - Cleanse with PH balance spray or wipes, pat dry. ?Apply thin layer of barrier cream to affected area.? Apply twice daily and Reapply thin layer PRN after each episode of incontinence. Bilateral Feet - Elevate heels off of bed surface with pillows.? Float heels off of pillows.? Cleanse with saline, pat dry. ?Apply Iodosorb / Iodoflex to wound bed cover with gauze and tape. ?Change every other day.?? Iodoflex left at bedside. Note the Iodoflex will be applied brown and over the course of time as the Iodine is absorbed into the wound bed the color will change to yellow / cream signifying time to replace.?? At time of discharge patient should continue Iodoflex until out pt follow up with wound clinic. ?Iodoflex can be obtained from Wound Care Nurse / Office this is not stocked on the units. HTN Continue carvedilol, hydralazine, irbesartan Chronic lower extremity edema Hold furosemide, spironolactone HLD Continue statin, aspirin Diet-controlled diabetes type 2 On Mounjaro at home Diabetic diet GERD Continue PPI TONI On BiPAP at night generalised weak-added pt eval. Full Code DVT Prophylaxis: Lovenox need for hospitalization for treatment of?right lower extremity cellulitis with sepsis that will require IV antibiotics , Pseudomonas bacteremia:need picc line, echo pending. Quality Stroke Does the patient have a stroke diagnosis?: No VTE Prior VTE?: No VTE Risk Level:: Medical - moderate - high VTE Device Contraindication: N/A - Device Ordered VTE Drug Contraindication: N/A - Med Ordered
--- NOTE | 2025-08-02 14:43 | MHC.CM.PN ---
Addendum entered by Ondina Caldwell 08/02/25 14:57: Patient is active with [facility] and a referral has been made to [facility]. Original Note: CM was asked to meet with Patient;Patient could not remember previously meeting with CM. CM reminded Patient of all the information she had shared with CM regarding her home services and the need to transport to home via [facility] because her power wheel chair is here and also needs transport to home. Patient realized that she had indeed met with CM. Patient states that she will need LT IV ABT, that she wants her [employer] to be trained to do that at home. CM will continue to follow.
--- NOTE | 2025-08-02 15:08 | HO.WOUND ---
Wound Consult: Follow up 65yr old?[place] [facility] [place] See progress notes and H&P for detailed history.? Wound consult follow up for Feet.? Patient agreeable to assessment and photo documentation.? Buttock not assessed today - Etiology: ?Chronic MASD (Moisture Associated Skin Damage) Wound Bed: intact blanchable purple tissue Edges: ? mirrored to buttock and perianal area Misti wound: ? No Induration, Fluctuance or Warmth noted Pain: denies Goals of Treatment: ? Off load pressure and barrier cream to protect from Moisture and friction 07/29/25 Left Foot 08/02/25 Left Foot 07/29/25 08/02/25 Right Foot Bilateral Feet Etiology: ??Unclear Etiology - Chronic follows with out pt wound clinic and has home VNA services in place - plans to follow up with lymphedema clinic outpt. Wound Bed: Left foot - red clean moist wound bed Right foot - red moist clean edges with thin central slough - overall significant improvement noted to wound bed Drainage / Odor: larson drainage noted on dressing no odor noted Edges: ? well defined Misti wound: ?Right leg improving pink swollen at upper thigh - cellultitis - No Induration, Fluctuance or Warmth noted Pain: denies Goals of Treatment: ? Iodoflex for moisture and biofilm disruption No new topical recommendations needed at this time. Recommendations: 1. Turn and Reposition every 2 hours and as needed for patient comfort.? Use pillows or wedges to support off loading positions. 2. Off Load all bony prominences with use of pillows and heel boots if needed.? Apply Preventative foams where needed. ? 3. Monitor for incontinence and moisture control, use barrier creams when needed for prevention and treatment. 4. Provide adequate and supplemental nutrition.? 5. Order low air loss mattress. 6. When applicable maintain blood glucose levels per Providers order. Buttock - Off Load Pressure with Q2 hr turns and use of pillows - Cleanse with PH balance spray or wipes, pat dry. ?Apply thin layer of barrier cream to affected area.? Apply twice daily and Reapply thin layer PRN after each episode of incontinence. Bilateral Feet - Elevate heels off of bed surface with pillows.? Float heels off of pillows.? Cleanse with saline, pat dry. ?Apply Iodosorb / Iodoflex to wound bed cover with gauze and tape. ?Change every other day.?? Iodoflex left at bedside. Note the Iodoflex will be applied brown and over the course of time as the Iodine is absorbed into the wound bed the color will change to yellow / cream signifying time to replace.?? At time of discharge patient should continue Iodoflex until out pt follow up with wound clinic. ?Iodoflex can be obtained from Wound Care Nurse / Office this is not stocked on the units. Re-consult wound care Nurse for wound deterioration or wound changes.
[2025-08-02 16:08] LABS: Glucose, Whole Blood 107 mg/dL (60-115)
--- NOTE | 2025-08-02 16:10 | MHC.CM.PN ---
Addendum entered by Kenia Barragan RN 08/03/25 14:29: IMM 08/03/25 DELIVERED TO BEDSIDE. Original Note: CM MET W/PT TO DISCUSS DISPO PT WILL NEED MATCHER OFFBEARER IV ABX, PT REPORTS SHE IS FAMILIAR W/IV ABX SHE GAVE THEM TO HER IN THE PAST, PT'S ECLECTIC DOCTOR HUEY [phone] WILL BE ASSISTING PT W/THEM AND WILL BE PRESENT FOR INITIAL DOSE, PT REPORTS HUEY DORSEY'S PT BID AND ARRIVES AROUND 9AM FOR ABOUT 1.5HRS HOWEVER WILL BE FLEXIBLE FOR FIRST DOSE W/[facility]. INFO SENT TO [facility]. ANTIC PT WILL HAVE LINE PLACED BY TOMORROW AND DC.
[2025-08-02 21:48] LABS: Glucose, Whole Blood 104 mg/dL (60-115)
[2025-08-03] VITALS (8 sets, daily range): BP systolic 116–146; BP diastolic 58–76; PULSE 59–90; RESP 16–20; TEMP 36.1–36.9; O2SAT 95–98
[2025-08-03 06:57] LABS: Creatinine Clr Calc Pharmacy 91.4; Estimated Glomerular Filt Rate > 60
[2025-08-03 07:16] LABS: Glucose, Whole Blood 116 mg/dL (60-115)
[2025-08-03] MEDS: Aspirin Enteric Coated 81 MG TABLET.DR PO (08:17)
[2025-08-03] MEDS: 0.9 % Sodium Chloride Flush 3 ML SYRINGE IVFLUSH ×2 (08:34→17:00)
[2025-08-03 11:12] LABS: Glucose, Whole Blood 154 mg/dL (60-115)
--- NOTE | 2025-08-03 14:02 | P.PICC_ITS ---
PICC Line Insertion NPICC Diagnosis: Osteomyelitis Indication: long term ABT Pertinent Labs: reviewed Technique: Following informed consent including risks, benefits and alternatives and using sterile technique including cap and mask, sterile gown, glove and drape, the right arm was prepped and draped in the usual sterile fashion of full barrier technique with CHG. Following completion of Weed Protocol the skin and soft tissues were anesthetized with 1% Lidocaine plain. Using ultrasound guidance, right cephalic vein access was obtained. Over an 0.018 wire through peel-away sheath, a 5FR double lumen PASV PICC line was positioned. Catheter length is 45cm internal length, 0cm external length, for a total trimmed length of 45cm. The procedure was performed in [facility]. Tip verification was performed by Len [place] with Sherlock 3CG. Tip located in SVC. Ultrasound was used to document vein patency and for needle entry. A formal ultrasound picture and cardiac rhythm strip was recorded. Vascular Supervisor Wrapping Room has released the line for use and it is currently dressed with a StatLock, Tegaderm, and CHG disc. Verification has been performed for blood return and line patency. Arm Circumference: 43.5cm Equipment: [employer] POWER PICC SOLO Catheter with Sherlock 3CG Tip Catheter Type: 5FR double lumen PASV catheter Lot #: [id number]
--- NOTE | 2025-08-03 14:54 | HO.PM.IMPN ---
Subjective Subjective Date of Service: 08/03/25 Interval History: om cellulitis leg Review of Systems denies any new c/o picc line placed Review of Systems: Yes all other systems are reviewed and are negative Physical Exam Exam: Exam: Appearance: Alert.? Oriented X3.? Morbidly obese.? cvs: rrr, [id number] . res: clear to auscultation ,no rhonchii or wheezing abd: no rebound or guarding ,nt, bs present. ext right leg erythema/pain-significant area from upper thigh to lower leg. neuro: axo3 , nonfocal Vital Signs: Vital Signs: Last Vital Signs Temp 98.5 F 08/03/25 11:36 Pulse 61 08/03/25 11:36 Resp 18 08/03/25 11:36 BP 146/71 H 08/03/25 11:36 Pulse Ox 96 08/03/25 11:36 O2 Del Method Room Air 08/03/25 11:36 O2 Flow Rate 17 07/30/25 03:11 BMI result Body Mass Index 58.6 Objective Data Active Medications Acetaminophen (Acetaminophen 325 Mg Tablet) 650 mg PO Q6H PRN PRN Reason: Pain, Mild 1-3,fever,headache Acetaminophen (Acetaminophen 325 Mg Tablet) 975 mg PO Q12H [facility] Last Admin: 08/03/25 10:25 Dose: 975 mg Documented By: BELEN Aspirin (Aspirin Enteric Coated 81 Mg Tablet.) 81 mg PO DAILY [facility] Last Admin: 08/03/25 08:17 Dose: 81 mg Documented By: BELEN Atorvastatin Calcium (Atorvastatin Calcium 40 Mg Tablet) 40 mg PO DAILY [facility] Last Admin: 08/03/25 08:17 Dose: 40 mg Documented By: BELEN Calcium Carbonate (Calcium Carbonate 750 Mg Tab.Chew) 750 mg PO Q4H PRN PRN Reason: Heartburn Carvedilol (Carvedilol 6.25 Mg Tablet) 6.25 mg PO BID [facility]; Protocol Last Admin: 08/03/25 08:17 Dose: 6.25 mg Documented By: BELEN Celecoxib (Celecoxib 200 Mg Capsule) 200 mg PO BID [facility] Last Admin: 08/03/25 08:17 Dose: 200 mg Documented By: BELEN Dextrose (Dextrose 50 % 25 Gm/50 Ml Syringe) 25 gm IVPUSH Q15M PRN; Protocol PRN Reason: per Hypoglycemia Standing Ord. Doxazosin Mesylate (Doxazosin Mesylate 2 Mg Tablet) 16 mg PO BEDTIME [facility] Last Admin: 08/02/25 22:26 Dose: 16 mg Documented By: MANDIE Enoxaparin Sodium (Enoxaparin Sodium 40 Mg/0.4 Ml Syringe) 40 mg SUBCUT Q24H [facility] Last Admin: 08/02/25 18:58 Dose: 40 mg Documented By: LIDA Gabapentin (Gabapentin 300 Mg Capsule) 900 mg PO BEDTIME [facility] Last Admin: 08/02/25 22:27 Dose: 900 mg Documented By: MANDIE Glucose (Glucose Gel 15 Gm Gel..Gram.) 15 gm PO Q15M PRN; Protocol PRN Reason: per Hypoglycemia Standing Ord. Hydralazine HCl (Hydralazine Hcl 50 Mg Tablet) 50 mg PO BID [facility]; Protocol Last Admin: 08/03/25 08:17 Dose: 50 mg Documented By: BELEN Piperacillin Sod/Tazobactam (Sod 3.375 gm/ Sodium Chloride) 50 mls @ 100 mls/hr IV Q6H [facility] Last Infusion: 08/03/25 10:25 Dose: Infused Documented By: BELEN Ciprofloxacin (Cipro) 400 mg in 200 mls @ 200 mls/hr IV Q12H [facility] Last Infusion: 08/03/25 13:02 Dose: Infused Documented By: BELEN Insulin Human Lispro (Insulin Lispro 100 Unit/Ml 3 Ml Vial) 0 unit SUBCUT QIDACHS [facility]; Protocol Last Admin: 08/03/25 11:43 Dose: 2 unit Documented By: BELEN Magnesium Hydroxide (Milk Of Magnesia 30 Ml Oral.Susp) 30 ml PO DAILY PRN PRN Reason: Constipation Magnesium Oxide (Magnesium Oxide 400 Mg Tablet) 400 mg PO DAILY [facility] Last Admin: 08/03/25 08:17 Dose: 400 mg Documented By: BELEN Melatonin (Melatonin 3 Mg Tablet) 6 mg PO BEDTIME PRN PRN Reason: Insomnia Multivitamins/Vitamin C (Multivitamin Tablet) 1 tab PO DAILY [facility] Last Admin: 08/03/25 08:17 Dose: 1 tab Documented By: BELEN Nystatin (Nystatin Powder 15 Gm Bottle) 1 appl TOPICAL BID PRN; Protocol PRN Reason: Rash Nystatin (Nystatin Powder 15 Gm Bottle) 1 appl TOPICAL BID [facility]; Protocol Last Admin: 08/03/25 10:24 Dose: 1 appl Documented By: BELEN Omeprazole (Omeprazole 20 Mg Capsule.) 20 mg PO DAILY@0630 [facility] Last Admin: 08/03/25 05:33 Dose: 20 mg Documented By: MANDIE Pregabalin (Pregabalin 150 Mg Capsule) 150 mg PO BID [facility] Last Admin: 08/03/25 08:17 Dose: 150 mg Documented By: BELEN Sodium Chloride (0.9 % Sodium Chloride Flush 3 Ml Syringe) 3 ml IVFLUSH QSHIFT [facility] Last Admin: 08/03/25 08:34 Dose: 3 ml Documented By: BELEN Vitamin D (Cholecalciferol (Vitamin D3) 25 Mcg Tablet) 25 mcg PO DAILY [facility] Last Admin: 08/03/25 08:17 Dose: 25 mcg Documented By: BELEN Labs 07/28/25 06:26 08/03/25 06:21 Labs: Laboratory Results - last 24 hr 08/02/25 08/02/25 08/03/25 16:02 21:43 06:20 Hold Purple Top SEE NOTE Estim Creat Clear Calc Estimated GFR POC Glucose 107 104 08/03/25 08/03/25 08/03/25 06:21 07:11 11:04 Hold Purple Top Estim Creat Clear Calc 91.4 Estimated GFR > 60 POC Glucose 116 H 154 H Microbiology Microbiology Results: Microbiology 07/31/25 14:00 Blood Culture - Preliminary Blood - Venous No growth after 48 hours. 07/31/25 14:12 Blood Culture - Preliminary Blood - Venous No growth after 48 hours. 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 Pt is admitted to the hospital for treatment and further evaluation of right lower extremity cellulitis with sepsis. Right lower extremity cellulitis with sepsis Meets sepsis criteria with leukocytosis, tachycardia; low-grade fever, lactic acid WNL Pt given IVF and started on broad-spectrum antibiotics in the ED continue vancomycin/Zosyn started 07/27/2025 Follow blood cultures:11/11 : peusomonas repeat blood cultures neg@24 hrs venous dupplex:No evidence of acute DVT in the bilateral lower extremities. ID eval noted:continue piperacillin/tazobactam at this time,off Vancomycin tomorrow - no gram positive bacteremia seen. MRI right foot focus on lateral great toe-possible OM echo: Normal left ventricular size and systolic function. There is mildly increased left ventricular wall thickness. The visually estimated ejection fraction is between 55-60%. - Poor 2 D assessment of the valves. plan: s/p piccline ID follow-up:Treat as OM,Cipro and Zosyn for six weeks and weekly CBC and creatinine, follow outpatient. Recheck blood cultures-negative Check MRI right foot focus on lateral great toe area if not done recently make sure no OM and adjust medication if is,possible Cipro and Zosyn six weeks Chronic bilateral foot ulcers S/p skin grafting by Dr. Lopez in April seen by surgery-recommended continue above management. Wound care consult: Buttock:Chronic MASD (Moisture Associated Skin Damage) : b/l foot wounds: 1. Turn and Reposition every 2 hours and as needed for patient comfort.? Use pillows or wedges to support off loading positions. 2. Off Load all bony prominences with use of pillows and heel boots if needed.? Apply Preventative foams where needed. ? 3. Monitor for incontinence and moisture control, use barrier creams when needed for prevention and treatment. 4. Provide adequate and supplemental nutrition.? 5. Order low air loss mattress. 6. When applicable maintain blood glucose levels per Providers order. Buttock - Off Load Pressure with Q2 hr turns and use of pillows - Cleanse with PH balance spray or wipes, pat dry. ?Apply thin layer of barrier cream to affected area.? Apply twice daily and Reapply thin layer PRN after each episode of incontinence. Bilateral Feet - Elevate heels off of bed surface with pillows.? Float heels off of pillows.? Cleanse with saline, pat dry. ?Apply Iodosorb / Iodoflex to wound bed cover with gauze and tape. ?Change every other day.?? Iodoflex left at bedside. Note the Iodoflex will be applied brown and over the course of time as the Iodine is absorbed into the wound bed the color will change to yellow / cream signifying time to replace.?? At time of discharge patient should continue Iodoflex until out pt follow up with wound clinic. ?Iodoflex can be obtained from Wound Care Nurse / Office this is not stocked on the units. HTN Continue carvedilol, hydralazine, irbesartan Chronic lower extremity edema Hold furosemide, spironolactone HLD Continue statin, aspirin Diet-controlled diabetes type 2 On Mounjaro at home Diabetic diet GERD Continue PPI TONI On BiPAP at night generalised weak-added pt eval. Full Code DVT Prophylaxis: Lovenox need for hospitalization for treatment of?right lower extremity cellulitis with sepsis that will require IV antibiotics , Pseudomonas bacteremia/need antibiotics home arrangement .. Quality Stroke Does the patient have a stroke diagnosis?: No VTE Prior VTE?: No VTE Risk Level:: Medical - moderate - high VTE Device Contraindication: N/A - Device Ordered VTE Drug Contraindication: N/A - Med Ordered
[2025-08-03 16:24] LABS: Glucose, Whole Blood 119 mg/dL (60-115)
[2025-08-03] MEDS: 0.9 % Sodium Chloride Flush 10 ML SYRINGE IVFLUSH ×2 (17:00→21:47)
[2025-08-03 18:54] LABS: CDiff Gene PCR NEGATIVE (Negative)
[2025-08-03 20:44] LABS: Glucose, Whole Blood 140 mg/dL (60-115)
[2025-08-04] VITALS: BP 147/66; PULSE 94; RESP 18; TEMP 36.4; O2SAT 96
[2025-08-04 04:00] VITALS: BP 140/59; PULSE 69; RESP 18; TEMP 36.3; O2SAT 97
[2025-08-04 06:33] LABS: Creatinine Clr Calc Pharmacy 93.3; Estimated Glomerular Filt Rate > 60
[2025-08-04 07:32] LABS: Glucose, Whole Blood 133 mg/dL (60-115)
[2025-08-04 08:00] VITALS: BP 150/71; PULSE 72; RESP 20; TEMP 36.3; O2SAT 96
--- NOTE | 2025-08-04 08:33 | MHC.CM.PN ---
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
[2025-08-04] MEDS: 0.9 % Sodium Chloride Flush 3 ML SYRINGE IVFLUSH (08:42)
[2025-08-04] MEDS: Aspirin Enteric Coated 81 MG TABLET.DR PO (08:43)
[2025-08-04 09:22] LABS: E. coli EAEC Not Detected (Not Detect.); E. coli EPEC Not Detected (Not Detect.); E. coli ETEC Not Detected (Not Detect.); E. coli STEC Not Detected (Not Detect.); Shigella sp./EIEC Not Detected (Not Detect.)
--- NOTE | 2025-08-04 09:45 | P.DS_ITS ---
DS: Providers Provider Date of Service: 08/04/25 Date of admission: 07/27/25 16:22 Date of discharge: 08/04/25 Primary care physician: Yolanda Jack MD Consults: 07/27/25 17:59 Consult to General Surgery Routine Consulting Provider: [facility] General Surgeons Reason for consultation: leg cellulitis Has provider been notified: No Consult to Wound Care Routine Reason for consultation: foot wounds 07/29/25 16:11 Consult to Infectious Diseases Routine Consulting Provider: [facility] Infectious Disease [facility] Reason for consultation: Leg cellulitis, Gram-negative bacteremia DS: Diagnosis Discharge Diagnosis (1) Cellulitis: Status: Acute DS: Summary Hospital Course Hospital Course: from initial hpi: 65y/o F PMH HTN, diet-controlled dm 2, urinary retention with chronic Duncan, 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 Pt was being seen by [facility] for wound care, when nurse noticed a new rash on her right leg concerning for cellulitis-? Duration 1-2 days. right lower leg has began hurting, is swollen, and red. Feels somewhat generally weak otherwise no other new complaints. Denies any new complaint of chest pain or shortness of breath or abdominal pain or nausea or vomiting Denies any cough Lab imaging reviewed: WBC count is 17.3, tachycardic BMP fine accept elevated BUN of 24 which is improving from the last admission CRP and ESR also elevated but seems improving from the last admission. XR/XR tibia fibula RT 2V: There is periosteal new bone formation along the fibular diaphysis which is a nonspecific finding. Severe osteoarthritis is present in the right knee. Nonspecific juxta-articular osteopenia involving the ankle. Soft tissue edema. Blood cultures sent hospital course: Patient was admitted for sepsis due to right lower extremity cellulitis and acute osteomyelitis. Was initially treated with vancomycin Zosyn, blood culture grew Pseudomonas, vancomycin was discontinued. Was seen by infectious disease who recommended completing 6 weeks of Cipro p.o. and Zosyn IV to be completed 09/10/2025 at home via PICC line. Echo did not show vegetation, EF 55-60% with mildly increased LV thickness. For chronic bilateral foot ulcers status post skin grafting by surgery in April 2025 and buttock chronic moisture associated skin damage was seen by wound care recommended local care (see report), for hypertension was continued on carvedilol, hydralazine, doxazosin. Irbesartan was held for hyperkalemia. For chronic diastolic CHF we will continue maintenance Lasix and spironolactone. For hyperlipidemia continued on statin. Diabetes was continued on insulin. For TONI continued on BiPAP. For morbid obesity weight loss recommended. Time Attestation Discharge Coordination Time (in mins): 32 Quality: Safe Use of Opioids Does Pt have an Active Cancer Diagnosis on the Problem List?: No Quality: Stroke Does the patient have a stroke diagnosis?: No Physical Exam Exam: Exam: Appearance: Alert.? Oriented X3.? Morbidly obese.? cvs: rrr, [id number] . res: clear to auscultation ,no rhonchii or wheezing abd: no rebound or guarding ,nt, bs present. ext right leg erythema/pain-significant area from upper thigh to lower leg. neuro: axo3 , nonfocal Vital Signs: Vital Signs: Last Vital Signs Temp 97.3 F 08/04/25 08:00 Pulse 72 08/04/25 08:00 Resp 20 08/04/25 08:00 BP 150/71 H 08/04/25 08:00 Pulse Ox 96 08/04/25 08:00 O2 Del Method Room Air 08/04/25 08:00 O2 Flow Rate 17 07/30/25 03:11 BMI result Body Mass Index 58.6 DS: Data Data Completed and Pending Labs on day of discharge: Laboratory Results - last 24 hr 08/03/25 08/03/25 08/03/25 11:04 16:20 17:46 Hold Purple Top Creatinine Estim Creat Clear Calc Estimated GFR POC Glucose 154 H 119 H C. difficile Tox B Gene NEGATIVE 08/03/25 08/04/25 08/04/25 20:33 06:04 06:15 Hold Purple Top SEE NOTE Creatinine 0.91 Estim Creat Clear Calc 93.3 Estimated GFR > 60 POC Glucose 140 H C. difficile Tox B Gene 08/04/25 07:27 Hold Purple Top Creatinine Estim Creat Clear Calc Estimated GFR POC Glucose 133 H C. difficile Tox B Gene Preliminary micro results at discharge 07/31/25 14:00 Blood Culture - Preliminary Blood - Venous No growth after 48 hours. 07/31/25 14:12 Blood Culture - Preliminary Blood - Venous No growth after 48 hours. Discharge Plan Discharge Anticipated Discharge Date/Time: 08/04/25 09:40 Patient Disposition: Home Health Service Discharge Diagnosis: om Referrals: [facility] [Other] - 1 Day Referral Note: [facility] WILL DELIVER YOUR IV ANTIBIOTICS AND SUPPLIES. [facility] [Outside] - 1 Day Referral Note: [facility]TION OF WOUND CARE AND NEW IV ANTIBIOTICS Yolanda Jack MD [Primary Care Provider, Internal Medicine] - 1 Week Discharge Medications: New piperacillin-tazobactam 3.375 gram Recon Soln 3.375 g IV Q6H Qty: 0 0RF ciprofloxacin HCl 500 mg tablet 500 mg PO Q12H Qty: 74 0RF Rx Instructions: end sep 10, 2025 Continued (DME) Bardex All-Silicone Duncan Cath 20 Fr misc See Rx Instructions .Route Qty: 12 0RF Rx Instructions: As directed spironolactone 25 mg tablet 25 mg PO DAILY Qty: 90 3RF pregabalin 150 mg capsule 150 mg PO BID Qty: 180 3RF celecoxib 200 mg capsule 200 mg PO BID Qty: 180 3RF nystatin [Nystop] 100,000 unit/gram powder 1 appl topical BID PRN (Reason: Rash) terazosin 10 mg capsule 20 mg PO BEDTIME rosuvastatin 10 mg tablet 10 mg PO DAILY Mounjaro 7.5 mg/0.5 mL pen injector 7.5 mg subcut MO cholecalciferol (vitamin D3) 25 mcg (1,000 unit) capsule 25 mcg PO DAILY omega 0-tvn-hku-fish oil [Fish Oil] 1,000 mg (120 mg-180 mg) capsule 1 cap PO BID aspirin 81 mg tablet,delayed release (DR/EC) 81 mg PO DAILY magnesium oxide 500 mg capsule 500 mg PO DAILY omeprazole 20 mg capsule,delayed release(DR/EC) 20 mg PO DAILY@0630 multivitamin Tablet 1 tab PO DAILY acetaminophen 650 mg tablet extended release 1,300 mg PO Q12H Acidophilus Capsule 1,000 mmu cells PO DAILY carvedilol 6.25 mg tablet 6.25 mg PO BID Qty: 180 3RF furosemide 40 mg tablet 40 mg PO DAILY Qty: 90 3RF gabapentin 300 mg capsule 900 mg PO BEDTIME Qty: 270 3RF hydralazine 50 mg tablet 50 mg PO BID Qty: 180 3RF Discontinued irbesartan 300 mg tablet 300 mg PO DAILY Qty: 90 3RF Discharge Orders: Discharge Order (Routine); Ordered 08/04/25 Ordered By: Gadiel Mayer Diet: Advance to usual diet Activity on Discharge: As tolerated Stand Alone Forms: Patient Portal Discharge page Print Language: Bermudian Care Plan Goals: recovery Health Concerns: om Plan of Treatment: zosyn and cipro until sep 10, 2025 weekly labs Assessment: see above
--- NOTE | 2025-08-04 09:51 | P.F2F_ITS ---
Service Date Service Date: 08/04/25 Encounter Date of encounter: 08/04/25 Reasons for Services Signs and symptoms assessed: inability to ambulate Reason for detention: wound care, medication management, medication treatment and teach disease management Homebound: Leaving the home is medically contraindicated at this time without the asist of a device and/or another person due th the listed conditions above and below. Reason homebound: bedbound/chairbound Certification: Based on the above findings, I certify that this patient is confined to the home and needs intermittent detention care, physical therapy and/or speech therapy, or continues to need occupational therapy. The patient is under my care, and I have initiated the establishment of the plan of care. The patient will be followed by a physician who will periodically review the plan of care. Time Spent With Patient Time: Total time managing care of this patient today ____ minutes.
== END 2025-08-04 11:09 | disposition home health service (06) | DRG 872 ==
LOC: HO.ED 16:01 → HO.EDOVER 16:36 → HO.IMC 19:20
PROVIDERS: Physician Assistant; Admitting Provider Internal Medicine; Emergency Provider Emergency Medicine; PCP Internal Medicine; Visit Provider Internal Medicine
DX: A41.9 Sepsis, unspecified organism (principal); L03.115 Cellulitis of right lower limb; Z68.43 Body mass index [BMI] 50.0-59.9, adult; M86.171 Other acute osteomyelitis, right ankle and foot; E11.628 Type 2 diabetes mellitus with other skin complications; K21.9 Gastro-esophageal reflux disease without esophagitis; G47.33 Obstructive sleep apnea (adult) (pediatric); E78.5 Hyperlipidemia, unspecified; Z96.0 Presence of urogenital implants; L24.A2 Irritant contact dermatitis due to fecal, urinary or dual incontinence; B96.5 Pseudomonas (aeruginosa) (mallei) (pseudomallei) as the cause of diseases classified elsewhere; E11.69 Type 2 diabetes mellitus with other specified complication; R33.9 Retention of urine, unspecified; E66.813 Obesity, class 3; Z71.3 Dietary counseling and surveillance; Z99.3 Dependence on wheelchair; Z79.82 Long term (current) use of aspirin; Z79.899 Other long term (current) drug therapy
CPT/HCPCS: 36415; 36573; 73590; 73630; 73720; 80048; 80053; 80202; 81001; 82565; 82803; 82947; 83605; 85025; 85027; 85652; 86140; 87040; 87077; 87186; 87205; 87493; 87507; 90656; 93306; 93970; 97161; 97165; 99285; A9585; C1751; J0744; J1650; J2543; J3373; J3374; J7120; Q9957

== ENCOUNTER → 2025-07-27 13:15 | Outpatient (BNV) | payer MEDICARE, OTHER, SELFPAY | PROVIDERS: PCP Internal Medicine; Visit Provider Radiology Diagnostic Radiology | DX: R60.0 Localized edema (principal) | CPT/HCPCS: 73590 ==

== ENCOUNTER 2025-07-27 16:22 | Outpatient (BNV) | payer MEDICARE, OTHER, SELFPAY | END 2025-08-01 13:35 | PROVIDERS: Admitting Provider Internal Medicine; Emergency Provider Emergency Medicine; PCP Internal Medicine; Visit Provider Radiology Diagnostic Radiology | DX: M85.871 Other specified disorders of bone density and structure, right ankle and foot (principal); M79.89 Other specified soft tissue disorders | CPT/HCPCS: 73630 ==

== ENCOUNTER 2025-07-27 16:22 | Outpatient (BNV) | payer MEDICARE, OTHER, SELFPAY | END 2025-08-01 07:00 | PROVIDERS: Admitting Provider Internal Medicine; Emergency Provider Emergency Medicine; PCP Internal Medicine; Visit Provider Internal Medicine Cardiovascular Disease | DX: R78.81 Bacteremia (principal) | CPT/HCPCS: 93306 ==

== ENCOUNTER 2025-07-27 16:22 | Outpatient (BNV) | payer MEDICARE, OTHER, SELFPAY | END 2025-07-28 18:00 | PROVIDERS: Admitting Provider Internal Medicine; Emergency Provider Emergency Medicine; PCP Internal Medicine; Visit Provider Radiology Diagnostic Radiology | DX: M79.605 Pain in left leg (principal); L03.116 Cellulitis of left lower limb | CPT/HCPCS: 93970 ==

== ENCOUNTER → 2025-07-27 16:22 | Outpatient (BNV) | payer MEDICARE, OTHER, SELFPAY | PROVIDERS: Admitting Provider Internal Medicine; Emergency Provider Emergency Medicine; PCP Internal Medicine; Visit Provider Internal Medicine | DX: L03.115 Cellulitis of right lower limb (principal) | CPT/HCPCS: 99222; 99231; 99232; 99239; G0180 ==

== ENCOUNTER → 2025-07-27 16:22 | Outpatient (BNV) | payer MEDICARE, OTHER, SELFPAY | PROVIDERS: Admitting Provider Internal Medicine; Emergency Provider Emergency Medicine; PCP Internal Medicine; Visit Provider Internal Medicine | DX: M86.9 Osteomyelitis, unspecified (principal); L03.115 Cellulitis of right lower limb | CPT/HCPCS: 99232 ==

== ENCOUNTER → 2025-07-27 16:22 | Outpatient (BNV) | payer MEDICARE, OTHER, SELFPAY | PROVIDERS: Admitting Provider Internal Medicine; Emergency Provider Emergency Medicine; PCP Internal Medicine; Visit Provider Physician Assistant Surgical | DX: L03.115 Cellulitis of right lower limb (principal) | CPT/HCPCS: 99222 ==

== ENCOUNTER 2025-08-08 15:00 | Outpatient (REF) | payer MEDICARE, OTHER, SELFPAY ==
--- OUTSIDE RECORDS SUMMARY | 2025-01-10 05:15 | XMS_ITS ---
Author Organization [facility] Address [address] [facility] [place] [address] Care Team Providers Care Medical Education Manager Name Role Phone Yolanda Jack MD Primary Care Provider Unavaila apolinar Enoc Dickensmie Unavailable [phone] Allergies Allergen (clinical drug ingredient) Drug/Non Drug [...] Active Encounters Encounter Location Date Provider Diagnosis [facility] [address] [address] 01/10/2025 Julee Maninder Plan Of Treatment Next Appt Details Provider Name:Julee A Maninder , 09/01/2025 11:00:00 AM, [address] [place] [address], [address], Progress Notes * Gina MCCULLOUGH MDOB:[birth year] (65 yo F)Acc No.[id number]:01/10/2025 Progress Note Patient: Gina WEBB Provider: Vipul Dickens DPM :1960 A ge:64 Y S ex:Female Date:01/10/2025 Address:[facility] [address] , [address], [place] Pcp:Yolanda Jack MD Subjective: * Chief Complaints: [...] Pending * Provider: Vipul Dickens DPM Date: 01/10/2025 Generated for Wilder ibarra/Cuong/Gabriella on: 08/08/2025 05:05 PM EDT
--- OUTSIDE RECORDS SUMMARY | 2025-02-21 11:15 | XMS_ITS ---
Author Organization [facility] Address [address] [place] [address] Care Team Providers Care Security Assistant Name Role Phone Yolanda Jack MD Primary Care Provider Unavaila apolinar ManinderJulee Unavailable [phone] Encounters Encounter Location Date Provider Diagnosis [address] [address] 02/21/2025 Julee Maninder Plan Of Treatment Next Appt Details Provider Name:Julee Dickens , 09/01/2025 11:00:00 AM, [address] [place] [address], [phone], Progress Notes * Gina MCCULLOUGH MDOB:[birth year] (65 yo F)Acc No.[id number]:02/21/2025 Progress Note Patient: Nic Gina BARBOSA Provider: Vipul Dickens DPM :1960 A ge:64 Y S ex:Female Date:02/21/2025 Address:[address], [id number] Pcp:Yolanda Jack MD Subjective: * Chief Complaints: [...] 0 02/21/2025 Generated for Wilder ibarra/Cuong/Gabriella on: 0 08/08/2025 05:04 PM EDT
[2025-08-08 15:06] LABS: MANUAL DIFF FLAG NO
[2025-08-08 15:45] LABS: Hematocrit 29.3 % (37.0-47.0); Hemoglobin 9.1 g/dl (12.0-16.0); Imm Gran Abs Auto 0.04 X10*3/uL (0.00-0.03); Imm Gran Pct Auto 0.4 % (0.0-0.4); Lymphocytes Absolute Auto 2.2 X10*3/uL (1.2-4.9); Mean Corpuscular HGB Conc 31.1 g/dl (31.0-35.0); Mean Corpuscular Hemoglobin 27.1 pg (27.0-33.0); Mean Corpuscular Volume 87.2 fL (80.0-98.0); NRBC Abs Auto 0.000 X10*3/uL (0.0-0.012); NRBC Pct Auto 0.0 /100WBC (0.0-0.2); Platelet Count 253 X10*3/uL (160-400); Red Blood Count 3.36 X10*6/uL (4.20-5.50); White Blood Count 9.2 X10*3/uL (4.8-10.8)
[2025-08-08 16:48] LABS: Alanine Aminotransferase 17 U/L (0-31); Albumin Level 3.5 g/dL (3.5-5.0); Alkaline Phosphatase 89 U/L (39-117); Anion Gap 16 (12-20); Aspartate Amino Transferase 18 U/L (5-31); Blood Urea Nitrogen 20 mg/dL (9-16); Calcium 8.1 mg/dL (8.4-10.2); Carbon Dioxide 23 mmol/L (22-29); Chloride 107 mmol/L (96-108); Estimated Glomerular Filt Rate > 60; Potassium 3.9 mmol/L (3.3-5.1); Sodium 142 mmol/L (135-145); Total Protein 6.7 g/dL (6.5-8.0)
--- OUTSIDE RECORDS SUMMARY | 2025-08-08 17:05 | XMS_ITS | Encounter Summary ---
Author Organization [facility] Address [address] [place] [address] Phone Care Team Providers Care Yarn Hauler Name Role Phone Yolanda Jack MD Primary Care Provider [phone] Encounter Details Date Type Department Care Team (Late st Contact Info) Description 04/07/2019 Procedure Pass [facility] [address] [place] [address] Social History Tobacco Use Types Packs/Day Years [...] on filedocumented in this encounter Care Teams Yarn Hauler Relationship Specialty Start Date End Date Yolanda Jack MD [address] [place] [address] PCP - General Internal Medicine 04/06/19 documented as of this encounter Additional Source Comments The information contained in this document represents components of the legal health record. It is not the complete legal health record.[facility]
--- OUTSIDE RECORDS SUMMARY | 2025-08-08 17:05 | XMS_ITS | Encounter Summary ---
Author Organization [facility] Address [address] [place] [address] Phone Care Team Providers Care Woods Overseer Name Role Phone Yolanda Jack MD Primary Care Provider [phone] Encounter Details Date Type Department Care Team (Late st Contact Info) Description 04/07/2019 Procedure Pass [facility] [address] [place] [address] Social History Tobacco Use Types Packs/Day Years [...] on filedocumented in this encounter Care Teams Woods Overseer Relationship Specialty Start Date End Date Yolanda Jack MD [address] [address] PCP - General Internal Medicine 04/06/19 documented as of this encounter Additional Source Comments The information contained in this document represents components of the legal health record. It is not the complete legal health record.[facility]
--- OUTSIDE RECORDS SUMMARY | 2025-08-08 17:05 | XMS_ITS | Clinical Summary ---
Author Organization [facility] Address [address] [place] [address] [place] [address] Phone Care Team Providers Care Passenger Car Inspector Name Role Phone Yolanda Jack MD Primary Care Provider [phone] Social History Tobacco Use Types Packs/Day Years [...] topic Medical Devices Not on file Insurance [place] [employer] [facility] [place] [employer] [facility] E[facility] POS EPO [facility] POS EPO [facility] POS EPO [facility] POS EPO Care Teams Passenger Car Inspector Relationship Specialty Start Date End Date Yolanda Jack MD [address] [place] [address] PCP - General Internal Medicine 04/06/19 Additional Source Comments The information contained in this document represents components of the legal health record. It is not the complete legal health record.[facility]
--- OUTSIDE RECORDS SUMMARY | 2025-08-08 17:05 | XMS_ITS | Patient Health Record ---
Author Organization [facility] Address [address] [place] [address] Care Team Providers Care Plasterer Tender Name Role Phone Yolanda Jack MD Primary Care Provider Unavaila ble Black, Julee Unavailable [phone] Allergies Allergen (clinical drug ingredient) Drug/Non Drug [...] Polyneuropathy due to type 2 diabetes mellitus (051988286) Type 2 diabetes mellitus with diabetic polyneuropathy (E11.42) Active confirmed Vital Signs Blood pressure diastolic 70 mm Hg 05/30/2025 Height 5ft1in in 05/30/2025 Blood pressure systolic 120 mm Hg 05/30/2025 Weight 290 lbs 05/30/2025 BMI 54.79 kg/m2 05/30/2025 Procedures Procedure Date Ordered Date Performed Result Body Sit e 80652-GWFR SKIN LESIONS, 2 TO 4 10/11/2024 N/A G9621-HFNWUHIW DYSTROPHIC NAILS ANY # 10/11/2024 N/A 07369-TSPTGNT NAIL, 6 OR MORE 05/30/2025 N/A 90552-IQDF SKIN LESIONS, 2 TO 4 05/30/2025 N/A Encounters Encounter Location Date Provider Diagnosis [address] [address] 10/11/2024 Julee Black Type 2 diabetes mellitus with diabetic polyneuropathy E11.[address] [address] 05/30/2025 Julee Black Type 2 diabetes mellitus with diabetic polyneuropathy E11.42 and Onychomycosis B35.[address] [address] 09/27/2024 Julee Black [facility] [address] 01/05/2025 Julee Black [facility] [address] 02/17/2025 Julee Black Assessments Encounter Date Diagnosis [...] X ray : Foot, right 3V 12/14/2018 92720-FTXJUTE NAIL, 6 OR MORE 02/16/2018 37326-OOEHBWK NAIL, 6 OR MORE 04/20/2018 29412-ICYIKDB NAIL, 6 OR MORE 06/29/2018 29376-BCHAXZF NAIL, 6 OR MORE 09/25/2017 46709-JLZXNWM NAIL, 6 OR MORE 12/22/2017 36023-TLXTABA NAIL, 6 OR MORE 09/19/2016 58605-QGYAIOZ NAIL, 6 OR MORE 10/09/2016 08569-DZZRLUB NAIL, 6 OR MORE 02/17/2017 57811-ZECXHEP NAIL, 6 OR MORE 06/19/2017 62793-ZWQPYPN NAIL, 6 OR MORE 03/24/2019 42912-LRUZJSK NAIL, 6 OR MORE 07/13/2019 15742-PHCDNBH NAIL, 6 OR MORE 10/18/2019 23031-TNYCCZW NAIL, 6 OR MORE 01/31/2020 68558-QVYXXBT NAIL, 6 OR MORE 04/24/2020 66051-WDHPOZF NAIL, 6 OR MORE 07/27/2020 81501-ACBPGGW NAIL, 6 OR MORE 12/13/2020 40256-HHSRRGG NAIL, 6 OR MORE 03/12/2021 78797-HCDYEVG NAIL, 6 OR MORE 05/20/2016 94810-DRWKKKR NAIL, 6 OR MORE 12/04/2015 95658-YDFVWXW NAIL, 6 OR MORE 02/14/2016 58659-IRKCPUG NAIL, 6 OR MORE 05/08/2016 75483-HKNFPDS NAIL, 6 OR MORE 08/02/2015 89991-LWEJQFK NAIL, 6 OR MORE 08/07/2015 72965-KMBWVOK NAIL, 6 OR MORE 10/29/2013 40459-UCZAPPH NAIL, 6 OR MORE 04/27/2014 35377-XJNVFTI NAIL, 6 OR MORE 07/27/2014 10589-GJMNGCA NAIL, 6 OR MORE 10/26/2014 92983-PBMSVVR NAIL, 6 OR MORE 01/25/2015 10073-YHZAHYO NAIL, 6 OR MORE 01/13/2012 32563-QGYIQTR NAIL, 6 OR MORE 03/25/2012 73801-RLWAMWD NAIL, 6 OR MORE 06/24/2012 48479-ZCXIIIG NAIL, 6 OR MORE 12/02/2012 24901-CYKDIXN NAIL, 6 OR MORE 02/15/2013 51163-LZGPUMO NAIL, 6 OR MORE 04/22/2013 48629-MOZQZVG NAIL, 6 OR MORE 05/30/2025 40672-DLKAUBI NAIL, 1-5 01/19/2014 49411-Mgiezafp Plate 01/25/2015 57572-Yzpzwifg Plate 10/26/2014 95433-Pdkyluat Plate 07/27/2014 93256-Nflasytj Plate 08/07/2015 18433-Uooaaqiw Plate 08/02/2015 46990-Njwsvnky Plate 05/04/2015 29850-Qmhbcmnk Plate 10/24/2015 11952-Fgplltdb Plate 05/20/2013 70285-Yaikkbaj Plate 06/23/2013 49290-Kbtgqtcx Plate 03/31/2013 31116-Pzayoarx Plate 03/01/2013 53044-Imfichml Plate 06/24/2012 77719-Zxelrdcl Plate 09/16/2012 91704-Arsunddj Plate 03/25/2012 36935-Oavepbrz Plate 06/11/2021 59158-Qkntzcmz Plate 12/13/2020 99127-Oebarhce Plate 07/27/2020 23536-Kavpfhpm Plate 10/18/2019 91311-Tvbmcpmz Plate 01/31/2020 29033-Vbrpsozo Plate Each Additional 71081-Xgcgeqgk Plate Each Additional 68314-Suyszyll Plate Each Additional 56663-Bjjihuuk Plate Each Additional 16832-Zlxxftvq Plate Each Additional 18315-TKL 09/23/2013 28396-UGQ 10/15/2013 95997-JPQ 01/16/2017 54245- Debride <25 sq cm 01/16/2017 37979- Debride <25 sq cm 01/31/2017 48426- Debride <25 sq cm 02/17/2017 72383- Debride <25 sq cm 09/25/2017 96656- Debride <25 sq cm 03/20/2017 90799- Debride <25 sq cm 10/09/2016 22892- Debride <25 sq cm 10/23/2016 64708- Debride <25 sq cm 11/28/2016 35326- Debride <25 sq cm 01/01/2017 92044- Debride <25 sq cm 09/19/2016 00424- Debride <25 sq cm 06/06/2016 61522- Debride <25 sq cm 08/09/2016 25250- Debride <25 sq cm 02/16/2018 94929- Debride <25 sq cm 10/28/2017 83582- Debride <25 sq cm 11/17/2017 25502- Debride <25 sq cm 12/22/2017 44462- Debride <25 sq cm 08/13/2018 90237- Debride <25 sq cm 09/03/2018 00105- Debride <25 sq cm 09/24/2018 27154- Debride <25 sq cm 10/08/2018 47825- Debride <25 sq cm 04/20/2018 28635- Debride <25 sq cm 02/18/2019 08713- Debride <25 sq cm 03/24/2019 57617- Debride <25 sq cm 01/14/2022 11602- Debride <25 sq cm 10/28/2022 56130- Debride <25 sq cm 02/13/2023 92215- Debride <25 sq cm 05/22/2023 32962- Debride <25 sq cm 06/23/2013 92617- Debride <25 sq cm 05/20/2013 04585- Debride <25 sq cm 03/01/2013 94327- Debride <25 sq cm 03/15/2013 57109- Debride <25 sq cm 03/31/2013 55086- Debride <25 sq cm 04/22/2013 54818- Debride <25 sq cm 02/15/2013 54030- Debride <25 sq cm 03/25/2012 94058- Debride <25 sq cm 01/13/2012 02719- Debride <25 sq cm 09/16/2012 04078- Debride <25 sq cm 12/02/2012 98635- Debride <25 sq cm 06/24/2012 81909- Debride <25 sq cm 07/27/2014 95759- Debride <25 sq cm 10/26/2014 28953- Debride <25 sq cm 01/25/2015 14293- Debride <25 sq cm 01/19/2014 99021- Debride <25 sq cm 10/28/2011 88202- Debride <25 sq cm 11/19/2013 20472- Debride <25 sq cm 05/04/2015 01440- Debride <25 sq cm 05/18/2015 07339- Debride <25 sq cm 06/02/2015 26149- Debride <25 sq cm 06/22/2015 42884-OZPGVHB SKIN/TISSUE 05/20/2016 24696-AIIYVDR SKIN/TISSUE 05/08/2016 03766-IBCVIHG SKIN/TISSUE 10/29/2013 88541-TGRXSCR SKIN/TISSUE 04/27/2014 40911-WCVWXJE SKIN/TISSUE 10/13/2012 14977-ZVXPKOU SKIN/TISSUE 10/30/2012 80057-BPTAVUW SKIN/TISSUE 09/17/2011 52752-CXFXLHU SKIN/TISSUE 10/15/2013 76483-WJUUOHW SKIN/TISSUE 01/18/2019 52453-YMSPHUZ SKIN/TISSUE 02/01/2019 93510-FBIZSTL SKIN/TISSUE 07/23/2016 82674-IWYMBNF SKIN/TISSUE 01/31/2017 66600-ONFSVYL SKIN/TISSUE 03/11/2024 79701 I&D ABSCESS- SIMPLE,SINGLE 011 50641-KALF SKIN LESIONS, OVER 4 05/22/20 23 70936-DGAR SKIN LESIONS, OVER 4 02/14/20 23 62009-PHZV SKIN LESIONS, 2 TO 4 10/28/20 22 87751-AZLY SKIN LESIONS, 2 TO 4 09/24/20 21 17809-RAKD SKIN LESIONS, 2 TO 4 04/22/20 22 80928-DTMV SKIN LESIONS, 2 TO 4 07/22/20 22 66556-JCAE SKIN LESIONS, 2 TO 4 06/11/20 21 90957-ESBO SKIN LESIONS, 2 TO 4 07/01/20 24 13071-SWLM SKIN LESIONS, 2 TO 4 10/11/20 24 25995-GMFW SKIN LESIONS, 2 TO 4 09/01/20 23 02088-LHWF SKIN LESIONS, 2 TO 4 12/11/19 24 68280-VSMN SKIN LESIONS, 2 TO 4 03/11/20 24 28614-AYKQ SKIN LESIONS, 2 TO 4 05/30/20 25 07596-BRVQ NAIL(S) 07/22/2022 98054-TPPQ NAIL(S) 04/22/2022 84717-WOUV NAIL(S) 09/24/2021 87702-URUA NAIL(S) 01/14/2022 87728-ULVF NAIL(S) 10/28/2022 V3810-WTXFLSAB DYSTROPHIC NAILS ANY # Y7591-JKWUGMRI DYSTROPHIC NAILS ANY # T8652-NZGTOIKT DYSTROPHIC NAILS ANY # M2686-MMNOSMFX DYSTROPHIC NAILS ANY # G5990-CYKVOTVD DYSTROPHIC NAILS ANY # W0041-HKBWOGRL DYSTROPHIC NAILS ANY # R5945-TLLOBRUM DYSTROPHIC NAILS ANY # S9210-NBLPNKIE DYSTROPHIC NAILS ANY # 94664 - Tenotomy, open flexor 01/16/2018 Next Appt Details Provider Name:Julee Dickens , 09/01/2025 11:00:00 AM, [address] [place], [address], Insurance Providers Payer Name Payer Address Payer Phone Subscriber Number Group Number Insured Name Patient Relationship to Insured Coverage Start Date Coverage End Date Medicare National [employer] [address] [place] [address] [id number] Gina Milan Self - patient is the insured [employer] [address] [place] [address] [phone] [id number] Gina Milan Self - patient is [...] on feet 04/14/25 Hospitalization History Reason Date(Month/Year) [place] [facility] Visit 3 times 10/18,, 11/2019 testing for back - 09/10/19 [facility]- Right foot Ulceration 08/06/18 [facility] lumbar fusion 04/14/2017
== END 2025-08-08 15:01 | disposition home or self-care (01) ==
LOC: HO.HVNA 15:00
PROVIDERS: Visit Provider Internal Medicine
DX: L03.115 Cellulitis of right lower limb (principal)
CPT/HCPCS: 36415; 80048; 80076; 85025; 85652; 86140

== ENCOUNTER 2025-08-15 15:18 | Outpatient (REF) | payer MEDICARE, OTHER, SELFPAY ==
--- OUTSIDE RECORDS SUMMARY | 2025-01-10 05:15 | XMS_ITS ---
Author Organization [facility] Address [address] [facility] [place] [address] Care Team Providers Care Bulk Mail Technician Name Role Phone Yolanda Jack MD Primary Care Provider Unavaila ble Enoc Dickensmie Unavailable [phone] Allergies Allergen (clinical drug ingredient) Drug/Non Drug [...] Active Encounters Encounter Location Date Provider Diagnosis [facility] [address] [address] 01/10/2025 Julee Maninder Plan Of Treatment Next Appt Details Provider Name:Julee A Maninder , 09/01/2025 11:00:00 AM, [address] [place] [address], [address], Progress Notes * Gina MCCULLOUGH MDOB:[birth year] (65 yo F)Acc No.[id number]:01/10/2025 Progress Note Patient: Gina WEBB Provider: Vipul Dickens DPM :1960 A ge:64 Y S ex:Female Date:01/10/2025 Address:[facility] [address] , [address], [place] Pcp:Yolanda Jack MD Subjective: * Chief Complaints: [...] 0 01/10/2025 Generated for Wilder ibarra/Cuong/Gabriella on: 05:40 PM EDT
--- OUTSIDE RECORDS SUMMARY | 2025-02-21 11:15 | XMS_ITS ---
Author Organization [facility] Address [address] [place] [address] Care Team Providers Care Candle Wrapping Machine Operator Name Role Phone Yolanda Jack MD Primary Care Provider Unavaila apolinar ManinderJulee Unavailable [phone] Encounters Encounter Location Date Provider Diagnosis [address] [address] 02/21/2025 Julee Maninder Plan Of Treatment Next Appt Details Provider Name:Julee Dickens , 09/01/2025 11:00:00 AM, [address] [place] [address], [address], Progress Notes * Gina MCCULLOUGH MDOB:[birth year] (65 yo F)Acc No.[id number]:02/21/2025 Progress Note Patient: Nic Gina BARBOSA Provider: Vipul Dickens DPM :1960 A ge:64 Y S ex:Female Date:02/21/2025 Address:[address], [address], [id number] Pcp:Yolanda Jack MD Subjective: * Chief Complaints: [...] 02/21/2025 Generated for Wilder ibarra/Cuong/Gabriella on: 1 05:40 PM EDT
[2025-08-15 15:23] LABS: MANUAL DIFF FLAG NO
[2025-08-15 15:31] LABS: Hematocrit 31.7 % (37.0-47.0); Hemoglobin 10.3 g/dl (12.0-16.0); Imm Gran Abs Auto 0.03 X10*3/uL (0.00-0.03); Imm Gran Pct Auto 0.3 % (0.0-0.4); Lymphocytes Absolute Auto 2.7 X10*3/uL (1.2-4.9); Mean Corpuscular HGB Conc 32.5 g/dl (31.0-35.0); Mean Corpuscular Hemoglobin 27.6 pg (27.0-33.0); Mean Corpuscular Volume 85.0 fL (80.0-98.0); NRBC Abs Auto 0.000 X10*3/uL (0.0-0.012); NRBC Pct Auto 0.0 /100WBC (0.0-0.2); Platelet Count 272 X10*3/uL (160-400); Red Blood Count 3.73 X10*6/uL (4.20-5.50); White Blood Count 8.7 X10*3/uL (4.8-10.8)
[2025-08-15 16:06] LABS: Alanine Aminotransferase 15 U/L (0-31); Albumin Level 4.0 g/dL (3.5-5.0); Alkaline Phosphatase 88 U/L (39-117); Anion Gap 11 (12-20); Aspartate Amino Transferase 20 U/L (5-31); Blood Urea Nitrogen 17 mg/dL (9-16); Calcium 9.1 mg/dL (8.4-10.2); Carbon Dioxide 30 mmol/L (22-29); Chloride 102 mmol/L (96-108); Estimated Glomerular Filt Rate > 60; Potassium 3.7 mmol/L (3.3-5.1); Sodium 139 mmol/L (135-145); Total Protein 7.4 g/dL (6.5-8.0)
--- OUTSIDE RECORDS SUMMARY | 2025-08-15 17:40 | XMS_ITS | Encounter Summary ---
Author Organization [facility] Address [address] [place] [address] Phone Care Team Providers Care Cdl B Driver Name Role Phone Yolanda Jack MD Primary Care Provider [phone] Encounter Details Date Type Department Care Team (Late st Contact Info) Description 04/07/2019 Procedure Pass [facility] [address] [place] [address] Social History Tobacco Use Types Packs/Day Years [...] on filedocumented in this encounter Care Teams Cdl B Driver Relationship Specialty Start Date End Date Yolanda Jack MD [address] [place] [address] PCP - General Internal Medicine 04/06/19 documented as of this encounter Additional Source Comments The information contained in this document represents components of the legal health record. It is not the complete legal health record.[facility]
--- OUTSIDE RECORDS SUMMARY | 2025-08-15 17:41 | XMS_ITS | Patient Health Record ---
Author Organization [facility] Address [address] [facility] [place] [address] Care Team Providers Care Mold Shifter Name Role Phone Yolanda Jack MD Primary Care Provider Unavaila ble Black, Julee Unavailable [phone] Allergies Allergen (clinical drug ingredient) Drug/Non Drug [...] Polyneuropathy due to type 2 diabetes mellitus ([id number]) Type 2 diabetes mellitus with diabetic polyneuropathy (E11.42) Active confirmed Vital Signs Blood pressure diastolic 70 mm Hg 05/30/2025 Height 5ft1in in 05/30/2025 Blood pressure systolic 120 mm Hg 05/30/2025 Weight 290 lbs 05/30/2025 BMI 54.79 kg/m2 05/30/2025 Procedures Procedure Date Ordered Date Performed Result Body Sit e 78790-OFUF SKIN LESIONS, 2 TO 4 10/11/2024 N/A D0151-CPHNXFFG DYSTROPHIC NAILS ANY # 10/11/2024 N/A 81848-XSXMZYO NAIL, 6 OR MORE 05/30/2025 N/A 34900-DSFJ SKIN LESIONS, 2 TO 4 05/30/2025 N/A Encounters Encounter Location Date Provider Diagnosis [address] [address] 10/11/2024 Julee Black Type 2 diabetes mellitus with diabetic polyneuropathy E11.[address] [address] 05/30/2025 Julee Black Type 2 diabetes mellitus with diabetic polyneuropathy E11.42 and Onychomycosis B35.[address] [address] 09/27/2024 [facility] [address] 01/05/[facility] [address] 02/17/2025 Julee Black Assessments Encounter Date Diagnosis [...] X ray : Foot, right 3V 12/14/2018 05916-RDTOUQN NAIL, 6 OR MORE 05/30/2025 97890-MCBGSUO NAIL, 6 OR MORE 04/24/2020 63178-DNMEKOI NAIL, 6 OR MORE 02/16/2018 45445-DBAFWYL NAIL, 6 OR MORE 09/25/2017 20228-OIJTGAK NAIL, 6 OR MORE 09/19/2016 47453-KJCDWVG NAIL, 6 OR MORE 02/14/2016 13510-AOMKSZZ NAIL, 6 OR MORE 08/02/2015 54411-LBUZTAO NAIL, 6 OR MORE 10/26/2014 64148-DEDDXIE NAIL, 6 OR MORE 07/27/2014 44428-VYHAVXD NAIL, 6 OR MORE 04/22/2013 29157-FOOYMPL NAIL, 6 OR MORE 02/15/2013 51691-NQSHEQN NAIL, 6 OR MORE 12/02/2012 11255-SXBNANX NAIL, 6 OR MORE 07/27/2020 46502-QLTXSRT NAIL, 6 OR MORE 12/13/2020 59806-JCUMCCE NAIL, 6 OR MORE 03/12/2021 86963-JTYVZGD NAIL, 6 OR MORE 04/20/2018 16110-OSNMLIV NAIL, 6 OR MORE 06/29/2018 18111-NCJLHWF NAIL, 6 OR MORE 03/24/2019 40361-IYYDSAG NAIL, 6 OR MORE 07/13/2019 21333-CPXRJNH NAIL, 6 OR MORE 10/18/2019 04854-NUCHVBJ NAIL, 6 OR MORE 01/31/2020 92444-DTEYPVS NAIL, 6 OR MORE 12/22/2017 04419-ZTKJZZU NAIL, 6 OR MORE 02/17/2017 18787-BMMXPGP NAIL, 6 OR MORE 06/19/2017 78168-NVMSTYQ NAIL, 6 OR MORE 12/04/2015 50230-ZMIVNKS NAIL, 6 OR MORE 05/08/2016 58069-OPFVMWC NAIL, 6 OR MORE 05/20/2016 44158-AKRWHSE NAIL, 6 OR MORE 10/09/2016 52741-OWAZRGB NAIL, 6 OR MORE 08/07/2015 06981-OHSSGSR NAIL, 6 OR MORE 10/29/2013 77503-FWGJKSW NAIL, 6 OR MORE 04/27/2014 37679-MXDWMKS NAIL, 6 OR MORE 01/25/2015 39111-JCKFTKY NAIL, 6 OR MORE 03/25/2012 86183-DJKLNHL NAIL, 6 OR MORE 06/24/2012 84044-LCUADQN NAIL, 6 OR MORE 01/13/2012 93065-HMLZOOK NAIL, 1-5 01/19/2014 86301-Qtovbael Plate 01/25/2015 21032-Cvvzkmwn Plate 08/07/2015 35978-Nsjzgxbi Plate 10/24/2015 30976-Xgmonlkc Plate 05/04/2015 94111-Bcjccxif Plate 03/25/2012 37957-Maebqrgq Plate 06/23/2013 57852-Dgexkpyn Plate 09/16/2012 39070-Qsjlfcor Plate 07/27/2020 50259-Hqdamcgq Plate 10/18/2019 60114-Xzcrayta Plate 12/13/2020 67868-Zeudhcyi Plate 06/11/2021 60048-Jliqhsrn Plate 01/31/2020 03173-Umbwdjel Plate 03/31/2013 31028-Akbgpuzt Plate 03/01/2013 07838-Yjevnzpd Plate 10/26/2014 21578-Zdpybjbr Plate 07/27/2014 43593-Ydpyvsuo Plate 05/20/2013 44454-Suvovagg Plate 08/02/2015 58686-Dizjtimq Plate 06/24/2012 76810-Odbflkoc Plate Each Additional 64709-Qrxppeft Plate Each Additional 56951-Rxdeujih Plate Each Additional 24478-Sqrrvlkx Plate Each Additional 36347-Vokafnzw Plate Each Additional 77413-OOK 09/23/2013 47733-RED 10/15/2013 43544-CFT 01/16/2017 46429- Debride <25 sq cm 01/16/2017 92478- Debride <25 sq cm 02/17/2017 21567- Debride <25 sq cm 10/28/2017 99892- Debride <25 sq cm 11/17/2017 01011- Debride <25 sq cm 12/22/2017 52742- Debride <25 sq cm 10/09/2016 79156- Debride <25 sq cm 10/23/2016 29873- Debride <25 sq cm 11/28/2016 92398- Debride <25 sq cm 01/01/2017 90761- Debride <25 sq cm 02/18/2019 85951- Debride <25 sq cm 03/24/2019 27732- Debride <25 sq cm 08/13/2018 00759- Debride <25 sq cm 09/03/2018 93184- Debride <25 sq cm 09/24/2018 03020- Debride <25 sq cm 10/08/2018 57696- Debride <25 sq cm 11/19/2013 56671- Debride <25 sq cm 04/20/2018 14043- Debride <25 sq cm 03/25/2012 01636- Debride <25 sq cm 03/15/2013 72125- Debride <25 sq cm 06/23/2013 36324- Debride <25 sq cm 09/16/2012 21926- Debride <25 sq cm 05/04/2015 02886- Debride <25 sq cm 05/18/2015 23710- Debride <25 sq cm 06/02/2015 28305- Debride <25 sq cm 01/25/2015 74154- Debride <25 sq cm 01/19/2014 00331- Debride <25 sq cm 05/20/2013 01306- Debride <25 sq cm 04/22/2013 90115- Debride <25 sq cm 10/26/2014 27107- Debride <25 sq cm 07/27/2014 22096- Debride <25 sq cm 03/01/2013 18503- Debride <25 sq cm 03/31/2013 77845- Debride <25 sq cm 12/02/2012 34341- Debride <25 sq cm 02/15/2013 32106- Debride <25 sq cm 06/22/2015 32077- Debride <25 sq cm 09/19/2016 72935- Debride <25 sq cm 08/09/2016 89097- Debride <25 sq cm 06/06/2016 24893- Debride <25 sq cm 03/20/2017 58833- Debride <25 sq cm 09/25/2017 45839- Debride <25 sq cm 02/16/2018 06137- Debride <25 sq cm 05/22/2023 75068- Debride <25 sq cm 02/13/2023 97193- Debride <25 sq cm 01/14/2022 38157- Debride <25 sq cm 10/28/2022 69346- Debride <25 sq cm 01/31/2017 79946- Debride <25 sq cm 06/24/2012 86412- Debride <25 sq cm 01/13/2012 88102- Debride <25 sq cm 10/28/2011 30837-WGBUSBN SKIN/TISSUE 03/11/2024 66034-BCBCGLF SKIN/TISSUE 01/18/2019 07552-RZHZCXY SKIN/TISSUE 01/31/2017 98982-PNEAFKM SKIN/TISSUE 10/29/2013 31264-BZFKYMO SKIN/TISSUE 04/27/2014 72129-XSHWBYS SKIN/TISSUE 10/13/2012 04345-JGOOCSK SKIN/TISSUE 10/30/2012 94012-GAIGUIV SKIN/TISSUE 09/17/2011 85112-TLZVXAM SKIN/TISSUE 10/15/2013 56882-PTKTYIW SKIN/TISSUE 02/01/2019 85406-ZAIYSIU SKIN/TISSUE 05/20/2016 54492-TNMHYNM SKIN/TISSUE 07/23/2016 44174-NNFMGQU SKIN/TISSUE 05/08/2016 62872 I&D ABSCESS- SIMPLE,SINGLE 011 77305-XYDV SKIN LESIONS, OVER 4 02/14/20 23 94554-UKMN SKIN LESIONS, OVER 4 05/22/20 23 54530-SKPN SKIN LESIONS, 2 TO 4 09/01/20 23 94632-VPYC SKIN LESIONS, 2 TO 4 12/11/19 24 61918-WTLI SKIN LESIONS, 2 TO 4 07/01/20 24 03383-YIJI SKIN LESIONS, 2 TO 4 03/11/20 24 46517-ZSWJ SKIN LESIONS, 2 TO 4 05/30/20 25 80450-TYOI SKIN LESIONS, 2 TO 4 10/11/20 24 82353-DHBL SKIN LESIONS, 2 TO 4 10/28/20 22 45030-ZPBT SKIN LESIONS, 2 TO 4 07/22/20 22 15759-CHZN SKIN LESIONS, 2 TO 4 04/22/20 22 74037-EZGZ SKIN LESIONS, 2 TO 4 09/24/20 21 30971-CNPQ SKIN LESIONS, 2 TO 4 06/11/20 21 63517-NTIA NAIL(S) 09/24/2021 21328-BSWL NAIL(S) 04/22/2022 43505-UMPA NAIL(S) 01/14/2022 31705-FGYF NAIL(S) 07/22/2022 75064-LGGE NAIL(S) 10/28/2022 C8167-DZMRMPJL DYSTROPHIC NAILS ANY # R4077-ULKODXVD DYSTROPHIC NAILS ANY # R3149-DSGOXTKE DYSTROPHIC NAILS ANY # Q6950-QENYIWOE DYSTROPHIC NAILS ANY # O8570-YFWMLRGU DYSTROPHIC NAILS ANY # U8455-PDCIGTNG DYSTROPHIC NAILS ANY # Q8422-MFYOWCOS DYSTROPHIC NAILS ANY # L6365-UBALIAEJ DYSTROPHIC NAILS ANY # 29437 - Tenotomy, open flexor 01/16/2018 Next Appt Details Provider Name:Julee Dickens , 09/01/2025 11:00:00 AM, [address] [place], [address], Insurance Providers Payer Name Payer Address Payer Phone Subscriber Number Group Number Insured Name Patient Relationship to Insured Coverage Start Date Coverage End Date Medicare National Govt Sv[employer] [address] [place] [address] [id number] Gina Milan Self - patient is the insured [employer] [address] [place] [address] [phone] [id number] Gina Milan Self - patient is [...] on feet 04/14/25 Hospitalization History Reason Date(Month/Year) [facility]- Right foot Ulceration 08/06/18 [facility] lumbar fusion 04/14/2017
--- OUTSIDE RECORDS SUMMARY | 2025-08-15 17:41 | XMS_ITS | Clinical Summary ---
Author Organization [facility] Address [address] [place] [address] [place] [address] Phone Care Team Providers Care Newspaper Copy Editor Name Role Phone oYlanda Jack MD Primary Care Provider [phone] Social History Tobacco Use Types Packs/Day Years [...] topic Medical Devices Not on file Insurance [employer] [facility] [place] [employer] [facility] [place] [facility] EPO [facility] POS EPO [facility] POS EPO [facility] POS EPO [facility] POS EPO Care Teams Newspaper Copy Editor Relationship Specialty Start Date End Date Yolanda Jack MD [address] [place] [address] PCP - General Internal Medicine 04/06/19 Additional Source Comments The information contained in this document represents components of the legal health record. It is not the complete legal health record.[facility]
--- OUTSIDE RECORDS SUMMARY | 2025-08-15 17:41 | XMS_ITS | Encounter Summary ---
Author Organization [facility] Address [address] [place] [address] Phone Care Team Providers Care Hospital Fellow Name Role Phone Yolanda Jack MD Primary Care Provider [phone] Encounter Details Date Type Department Care Team (Late st Contact Info) Description 04/07/2019 Procedure Pass [facility] [address] [place] [address] Social History Tobacco Use Types Packs/Day Years [...] on filedocumented in this encounter Care Teams Hospital Fellow Relationship Specialty Start Date End Date Yolanda Jack MD [address] [place] [address] PCP - General Internal Medicine 04/06/19 documented as of this encounter Additional Source Comments The information contained in this document represents components of the legal health record. It is not the complete legal health record.[facility]
[2025-08-23 19:18] LABS: Serotonin - Serum 139 ng/mL (56-244)
== END 2025-08-15 15:19 | disposition home or self-care (01) ==
LOC: HO.HSH 15:18
PROVIDERS: Visit Provider Internal Medicine
DX: A41.81 Sepsis due to Enterococcus (principal); L03.115 Cellulitis of right lower limb; M86.171 Other acute osteomyelitis, right ankle and foot
CPT/HCPCS: 36415; 80048; 80076; 84260; 85025; 85652; 86140

== ENCOUNTER 2025-08-18 13:24 | Outpatient (AMB) | payer MEDICARE, OTHER, MEDICAID, SELFPAY ==
--- OUTSIDE RECORDS SUMMARY | 2025-01-10 05:15 | XMS_ITS ---
Author Organization [facility] Address [address] [facility] [place] [address] Care Team Providers Care Material Lister Name Role Phone Yolanda Jack MD Primary Care Provider Unavaila ble Enoc Dickensmie Unavailable [phone] Allergies Allergen (clinical drug ingredient) Drug/Non Drug [...] Active Encounters Encounter Location Date Provider Diagnosis [facility] [address] [address] 01/10/2025 Julee Maninder Plan Of Treatment Next Appt Details Provider Name:Julee A Maninder , 09/01/2025 11:00:00 AM, [address] [place] [address], [address], Progress Notes * Gina MCCULLOUGH MDOB:[birth year] (65 yo F)Acc No.[id number]:01/10/2025 Progress Note Patient: Gina WEBB Provider: Vipul Dickens DPM :1960 A ge:64 Y S ex:Female Date:01/10/2025 Address:[facility] [address] , [address], [place] Pcp:Yolanda Jack MD Subjective: * Chief Complaints: [...] 0 01/10/2025 Generated for Wilder ibarra/Cuong/Gabriella on: 01:28 PM EDT
--- OUTSIDE RECORDS SUMMARY | 2025-02-21 11:15 | XMS_ITS ---
Author Organization [facility] Address [address] [place] [address] Care Team Providers Care Construction Supervisor/Carpenter Name Role Phone Yolanda Jack MD Primary Care Provider Unavaila apolinar ManinderJulee Unavailable [phone] Encounters Encounter Location Date Provider Diagnosis [address] [address] 02/21/2025 Julee Maninder Plan Of Treatment Next Appt Details Provider Name:Julee Dickens , 09/01/2025 11:00:00 AM, [address] [place] [address], [phone], Progress Notes * Gina MCCULLOUGH MDOB:[birth year] (65 yo F)Acc No.[id number]:02/21/2025 Progress Note Patient: Nic Gina BARBOSA Provider: Vipul Dickens DPM :1960 A ge:64 Y S ex:Female Date:02/21/2025 Address:[address], [address], [id number] Pcp:Yolanda Jack MD Subjective: * Chief Complaints: [...] 02/21/2025 Generated for Wilder ibarra/Cuong/Gabriella on: 1 01:28 PM EDT
--- NOTE | 2025-08-18 13:26 | A.OFFPC_ITS ---
Vital Signs 08/18/25 13:49 BP 120/74 Blood Pressure Location Lt brachial Position Sitting Respiration 19 Pulse 88 Pulse Source Pulse Oximeter Pulse Oximetry (%) 97 Oxygen Delivery Method Room Air Intake Visit Reasons: TCM Intake Note: Pt is here today for TCM. Allergies Adhesive Bandages Allergy (Unknown, Verified 07/27/25 13:04) rash adhesive tape (TAPE,ADHESIVE) Allergy (Unknown, Verified 07/27/25 13:04) RASH amlodipine Allergy (Unknown, Verified 07/27/25 13:04) edema atenolol Allergy (Unknown, Verified 07/27/25 13:04) Bradycardia bisoprolol (From Zebeta) Allergy (Unknown, Verified 07/27/25 13:04) Diarrhea labetalol Allergy (Unknown, Verified 07/27/25 13:04) n/a latex (LATEX) Allergy (Unknown, Verified 07/27/25 13:04) RASH metformin Adverse Reaction (Intermediate, Verified 07/27/25 13:04) Diarrhea semaglutide (From Ozempic) Adverse Reaction (Intermediate, Verified 07/27/25 13:04) Diarrhea vicodin Allergy (Unknown, Uncoded 06/02/25 15:09) heart palpitation actos Adverse Reaction (Intermediate, Uncoded 06/02/25 15:09) Abdominal Pain Medication List - Last Reconciled 08/18/25 by Yolanda Jack MD acetaminophen ER 1,300 mg PO Q12H aspirin 81 mg PO DAILY carvedilol 6.25 mg PO BID catheter (Bardex All-Silicone Duncan Catheter) As directed celecoxib 200 mg PO BID cholecalciferol (vitamin D3) 25 mcg PO DAILY ciprofloxacin HCl 500 mg PO Q12H furosemide 40 mg PO DAILY gabapentin 900 mg (3 x 300 mg) PO BEDTIME hydralazine 50 mg PO BID irbesartan 300 mg PO DAILY Lactobacillus acidophilus (Acidophilus capsule) 1,000 mmu cells PO DAILY magnesium oxide 500 mg PO DAILY multivitamin 1 tab PO DAILY nystatin (Nystop) 1 appl topical BID PRN omega 2-szn-jdw-fish oil 1,000 (120-180) mg (Fish Oil) 1 cap PO BID omeprazole 20 mg PO DAILY@0630 piperacillin-tazobactam 3.375 gram 3.375 grams IV Q6H pregabalin 150 mg PO BID rosuvastatin 10 mg PO DAILY spironolactone 25 mg PO DAILY terazosin 20 mg PO BEDTIME tirzepatide (Mounjaro) 7.5 mg subcut MO Tobacco use date assessed: 08/18/25 Fall risk assessment: 1 Fall in past year Last assessed Fall Risk: 08/18/25 Dental Screening Dental Screen Date: 05/04/25 HPI TCM HPI Details Pt presents for TCM for hospitalization at [facility] from July 27 until August 04 for Pseudomonas bacteremia, RLE cellulitis and R foot osteomyelitis and chronic ulcers. Patient was treated with IV antibiotics, echocardiogram was obtained showed no vegetation. Patient was seen by infectious disease and was discharged home on p.o. Cipro with Zosyn for 6 weeks via PICC line. Patient denies any recurrent fever chills she reports good appetite. She has been taking her regular medications for hypertension chronic lower edema and heart failure with preserved ejection fraction. Patient reports fasting blood glucose between 95 and 110. She has been tolerating Mounjaro 7.5 mg weekly TCM TCM Information Date of Discharge 08/04/25 Discharged From [facility] Interactive Contact Date (Reference documentation from this date) 08/05/25 [facility] Medical History (Updated 08/18/25 @ 15:23 by Yolanda Jack MD) Bacteremia due to Pseudomonas Chronic foot ulcer Heart failure with preserved ejection fraction Scoliosis Arthritis Diabetes GERD (gastroesophageal reflux disease) Numbness Elevated cholesterol Bowel incontinence Chronic indwelling Duncan catheter Osteomyelitis Bunion of right foot TONI (obstructive sleep apnea) Hyperglycemia Morbid obesity Foot callus Neuropathy Edema Urinary retention Plantar fasciitis Obesity Osteoarthritis Spinal stenosis Hypertension Surgical History Hx of skin graft (04/14/25) History of esophagogastroduodenoscopy (EGD) Hx of ligation of vein History of carpal tunnel surgery H/O foot surgery History of tonsillectomy H/O colonoscopy History of lumbar surgery Family History Father History of heart attack Mother HTN (hypertension) Stroke Brother Stomach cancer Brother History of heart attack HTN (hypertension) Diabetes mellitus Lung cancer Brother Bladder cancer Heart attack Social History Household Members: None Housing: House Are you a primary day care home mother to a significant other at home: No Do you presently have visiting nurse or other home services: Yes Alcohol intake: never Patient Tobacco Use Status: Never used Tobacco e-Cigarette/Vaping Use: Never Used Second Hand Smoke Exposure: No service: No Current occupational status: disabled Current occupation: right hand dominant Cognitive needs: No Hearing needs: No Vision needs: Yes Questionnaire Thrive Questionnaire Date Thrive assessed: 07/28/25 I am a: Patient What is your living situation today?: I have a steady place to live Within the past 12 months, did the food you bought not last and you didn't have the money to get more?: Never true Within the past 12 months, did you worry whether your food would run out before you got money to buy more?: Never true Do you have trouble paying for medicines?: No Do you have trouble getting transportation to medical appointments?: No Do you have trouble paying your heating and electricity bill?: No Do you have trouble taking care of your child, family member or friend?: No Do you have trouble with day-to-day activities such as bathing, preparing meals, shopping, managing finances, etc.?: No Are you currently unemployed and looking for a job?: No Are you interested in more education?: No Please select the resources that you would like help with: None Currently or been in a relationship where the following occur: No concerns reported THRIVE Score: 0 GIANNA-7 AMB Questionnaire GIANNA-7 Date GIANNA - 7 assessed: 01/31/25 Source: Developed by Drs. Renan Amor, Yoselin Haines, Arnulfo Manzanares and colleagues, with an educational delia from [employer]. Review of Systems Const All systems reviewed & are unremarkable except as noted in HPI and below ENT Reports no additional complaints Card Reports no additional complaints Resp Reports no additional complaints GI Reports no additional complaints Reports no additional complaints Physical exam (Primary Care) Vital Signs: Last Vital Signs Pulse 88 08/18/25 13:49 Resp 19 08/18/25 13:49 BP 120/74 08/18/25 13:49 Pulse Ox 97 08/18/25 13:49 Oxygen Delivery Method Room Air 08/18/25 13:49 Tobacco/Smoking Status: Tobacco use Status Tobacco use date assessed 08/18/25 08/18/25 13:54 Patient Tobacco Use Status Never used Tobacco 08/18/25 13:27 e-Cigarette/Vaping Use Never Used 08/18/25 13:27 Thrive Assessment: Date of Thrive Assessment Date Thrive assessed 07/28/25 08/18/25 13:27 Currently or been in a relationship where the following occur: No concerns reported Const General: no acute distress HENMT Head: Yes normal to inspection Resp Effort & Inspection: normal respiratory effort Auscultation: clear to auscultation bilaterally Cardio Rhythm: regular rhythm Heart sounds: S1 normal heart sound present and S2 normal heart sound present GI Inspection: Yes normal to inspection Palpation (GI): Soft to palpation Percussion: Yes normal to percussion Extrem Other: 1+ pitting edema in lower extremities bilaterally no erythema warmth or tenderness Coding Level of Care Code TCM High MDM <= 14 days Diagnoses Lymphedema of both lower extremities I89.0 Hypertension I10 DM type 2 (diabetes mellitus, type 2) E11.9 Morbid obesity E66.01 Heart failure with preserved ejection fraction I50.30 Osteomyelitis M86.9 Chronic foot ulcer with fat layer exposed, unspecified laterality L97.502 Laterality: unspecified laterality Non-pressure ulcer stage: with fat layer exposed Assessment & Plan Assessment & Plan (1) Lymphedema of both lower extremities: Code(s): I89.0 - Lymphedema, not elsewhere classified Category: Medical Plan: Patient asked for the referral to OT for lymphedema treatment (2) Hypertension: Code(s): I10 - Essential (primary) hypertension Category: Medical Plan: Continue current medications (3) DM type 2 (diabetes mellitus, type 2): Comment: diet controlled, intolerant to Ozempic (diarrhea) , A1C 5.4 10/02 Code(s): E11.9 - Type 2 diabetes mellitus without complications Category: Medical Plan: Continue ADA diet increase Mounjaro to 10 mg weekly (4) Morbid obesity: Code(s): E66.01 - Morbid (severe) obesity due to excess calories Category: Medical Plan: Decrease caloric intake increasing physical activity discussed with the patient (5) Heart failure with preserved ejection fraction: Comment: Echo 07/2025 [facility] n[place] EF, normal valves, Code(s): I50.30 - Unspecified diastolic (congestive) heart failure Category: Medical Plan: Continue current medications (6) Osteomyelitis: Comment: She has enterococcus OM,better looking foot Code(s): M86.9 - Osteomyelitis, unspecified Category: Medical Plan: Continue p.o. Cipro and IV Zosyn for 6 weeks and follow-up with ID (7) Chronic foot ulcer: Comment: Bilateral, established with [place] [facility] since 2022, status post skin gr afts April 2025 by Code(s): L97.509 - Non-pressure chronic ulcer of other part of unspecified foot with unspecified severity Category: Medical Qualifiers: Laterality: unspecified laterality Non-pressure ulcer stage: with fat layer exposed Qualified Code(s): L97.502 - Non-pressure chronic ulcer of other part of unspecified foot with fat layer exposed Plan: Follow-up with wound care Orders: Orders OT Evaluation and Treatment Today I89.0 - Lymphedema, not elsewhere classified Medications: New Mounjaro (tirzepatide) 10 mg (0.5 mL) subcut QWEEK 2 mL 2RF NS
--- OUTSIDE RECORDS SUMMARY | 2025-08-18 13:28 | XMS_ITS | Encounter Summary ---
Author Organization [facility] Address [address] [place] [address] Phone Care Team Providers Care Whey Department Operator Name Role Phone Yolanda Jack MD Primary Care Provider [phone] Encounter Details Date Type Department Care Team (Late st Contact Info) Description 04/07/2019 Procedure Pass [facility] [address] [place] [address] Social History Tobacco Use Types Packs/Day Years [...] on filedocumented in this encounter Care Teams Whey Department Operator Relationship Specialty Start Date End Date Yolanda Jack MD [address] [place] [address] PCP - General Internal Medicine 04/06/19 documented as of this encounter Additional Source Comments The information contained in this document represents components of the legal health record. It is not the complete legal health record.[facility]
--- OUTSIDE RECORDS SUMMARY | 2025-08-18 13:28 | XMS_ITS | Patient Health Record ---
Author Organization [facility] Address [address] [facility] [place] [address] Care Team Providers Care Application Manager Name Role Phone Yolanda Jack MD Primary Care Provider Unavaila ble Black, Julee Unavailable [phone] Allergies Allergen (clinical drug ingredient) Drug/Non Drug [...] Polyneuropathy due to type 2 diabetes mellitus (676433117) Type 2 diabetes mellitus with diabetic polyneuropathy (E11.42) Active confirmed Vital Signs Blood pressure diastolic 70 mm Hg 05/30/2025 Height 5ft1in in 05/30/2025 Blood pressure systolic 120 mm Hg 05/30/2025 Weight 290 lbs 05/30/2025 BMI 54.79 kg/m2 05/30/2025 Procedures Procedure Date Ordered Date Performed Result Body Sit e 06594-KMAK SKIN LESIONS, 2 TO 4 10/11/2024 N/A B1859-HMFSNLFN DYSTROPHIC NAILS ANY # 10/11/2024 N/A 64569-EGVXXEX NAIL, 6 OR MORE 05/30/2025 N/A 31986-RFQA SKIN LESIONS, 2 TO 4 05/30/2025 N/A Encounters Encounter Location Date Provider Diagnosis [address] [address] 10/11/2024 Julee Black Type 2 diabetes mellitus with diabetic polyneuropathy E11.[address] [address] 05/30/2025 Julee Black Type 2 diabetes mellitus with diabetic polyneuropathy E11.42 and Onychomycosis B35.[address] [address] 09/27/2024 [facility] [address] [address] 01/05/2025 [facility] [address] [address] 02/17/2025 Julee Black Assessments Encounter Date Diagnosis [...] X ray : Foot, right 3V 12/14/2018 85831-EBFLILU NAIL, 6 OR MORE 02/16/2018 71158-POYVSNA NAIL, 6 OR MORE 04/20/2018 56854-BXEDUUA NAIL, 6 OR MORE 06/29/2018 10608-RVUPPWU NAIL, 6 OR MORE 09/25/2017 08106-DNRIKFA NAIL, 6 OR MORE 12/22/2017 04969-UBYTIAO NAIL, 6 OR MORE 09/19/2016 95180-QGQXTOM NAIL, 6 OR MORE 10/09/2016 24993-MZJFZLN NAIL, 6 OR MORE 02/17/2017 46509-AORNBVP NAIL, 6 OR MORE 06/19/2017 93396-SADBRGC NAIL, 6 OR MORE 03/24/2019 44333-IBYBIEN NAIL, 6 OR MORE 07/13/2019 25116-VBHXKUE NAIL, 6 OR MORE 10/18/2019 01330-SYHYBOH NAIL, 6 OR MORE 01/31/2020 27844-WTHWCJO NAIL, 6 OR MORE 04/24/2020 01732-VBBAPDQ NAIL, 6 OR MORE 07/27/2020 21066-YGNQLCR NAIL, 6 OR MORE 12/13/2020 61704-TZILZLY NAIL, 6 OR MORE 03/12/2021 47924-UYAJRMR NAIL, 6 OR MORE 05/20/2016 31443-SBKJHHV NAIL, 6 OR MORE 12/04/2015 65391-IIQJVYT NAIL, 6 OR MORE 02/14/2016 16058-KHCEEUM NAIL, 6 OR MORE 05/08/2016 17196-TYWRJAQ NAIL, 6 OR MORE 08/02/2015 43693-ZWKKVHN NAIL, 6 OR MORE 08/07/2015 03937-CEHRGCI NAIL, 6 OR MORE 10/29/2013 77120-RPZDLWL NAIL, 6 OR MORE 04/27/2014 63624-UROUBMH NAIL, 6 OR MORE 07/27/2014 51782-ZDMOAJW NAIL, 6 OR MORE 10/26/2014 50940-ZVCILUT NAIL, 6 OR MORE 01/25/2015 10659-SPRKDBR NAIL, 6 OR MORE 01/13/2012 69093-KXLKJKG NAIL, 6 OR MORE 03/25/2012 50626-BWMGELA NAIL, 6 OR MORE 06/24/2012 57318-UTBTMXE NAIL, 6 OR MORE 12/02/2012 16283-SWLCARJ NAIL, 6 OR MORE 02/15/2013 30158-OAZUSXQ NAIL, 6 OR MORE 04/22/2013 70558-JBAUFPJ NAIL, 6 OR MORE 05/30/2025 03932-SNSIUTQ NAIL, 1-5 01/19/2014 95741-Knlurtof Plate 01/25/2015 24398-Sgjucsyd Plate 10/26/2014 83354-Zrjsuwho Plate 07/27/2014 46245-Fmdesowu Plate 08/07/2015 74384-Jknxnnub Plate 08/02/2015 11980-Ytnjworj Plate 05/04/2015 32591-Viqjqqtt Plate 10/24/2015 16608-Kviqquns Plate 05/20/2013 54208-Qylkqolq Plate 06/23/2013 05477-Fujrapcd Plate 03/31/2013 27441-Cxmmvvqb Plate 03/01/2013 59425-Cyxycsgw Plate 06/24/2012 94954-Cwqfozqk Plate 09/16/2012 58449-Rhxucflp Plate 03/25/2012 36451-Chrtvjik Plate 06/11/2021 15010-Fzvlknpy Plate 12/13/2020 00243-Wnpxzros Plate 07/27/2020 71319-Hybwukkl Plate 10/18/2019 06550-Simagauo Plate 01/31/2020 64525-Uzfxdvqo Plate Each Additional 19036-Hfiopvul Plate Each Additional 86074-Ysbffeze Plate Each Additional 43537-Arncwttd Plate Each Additional 96264-Vusxaars Plate Each Additional 29859-WUM 09/23/2013 86517-QSO 10/15/2013 22011-GQQ 01/16/2017 12461- Debride <25 sq cm 01/16/2017 01745- Debride <25 sq cm 01/31/2017 12882- Debride <25 sq cm 02/17/2017 33462- Debride <25 sq cm 09/25/2017 96820- Debride <25 sq cm 03/20/2017 83048- Debride <25 sq cm 10/09/2016 27724- Debride <25 sq cm 10/23/2016 81157- Debride <25 sq cm 11/28/2016 41327- Debride <25 sq cm 01/01/2017 25781- Debride <25 sq cm 09/19/2016 27523- Debride <25 sq cm 06/06/2016 16326- Debride <25 sq cm 08/09/2016 22965- Debride <25 sq cm 02/16/2018 09831- Debride <25 sq cm 10/28/2017 09001- Debride <25 sq cm 11/17/2017 25275- Debride <25 sq cm 12/22/2017 17029- Debride <25 sq cm 08/13/2018 08903- Debride <25 sq cm 09/03/2018 34243- Debride <25 sq cm 09/24/2018 61429- Debride <25 sq cm 10/08/2018 89106- Debride <25 sq cm 04/20/2018 55245- Debride <25 sq cm 02/18/2019 72050- Debride <25 sq cm 03/24/2019 70725- Debride <25 sq cm 01/14/2022 55339- Debride <25 sq cm 10/28/2022 37627- Debride <25 sq cm 02/13/2023 08837- Debride <25 sq cm 05/22/2023 80784- Debride <25 sq cm 06/23/2013 75070- Debride <25 sq cm 05/20/2013 58424- Debride <25 sq cm 03/01/2013 94504- Debride <25 sq cm 03/15/2013 72088- Debride <25 sq cm 03/31/2013 80843- Debride <25 sq cm 04/22/2013 00291- Debride <25 sq cm 02/15/2013 32441- Debride <25 sq cm 03/25/2012 80590- Debride <25 sq cm 01/13/2012 52373- Debride <25 sq cm 09/16/2012 22063- Debride <25 sq cm 12/02/2012 30335- Debride <25 sq cm 06/24/2012 64894- Debride <25 sq cm 07/27/2014 60384- Debride <25 sq cm 10/26/2014 49121- Debride <25 sq cm 01/25/2015 02005- Debride <25 sq cm 01/19/2014 86020- Debride <25 sq cm 10/28/2011 67177- Debride <25 sq cm 11/19/2013 96706- Debride <25 sq cm 05/04/2015 00391- Debride <25 sq cm 05/18/2015 60297- Debride <25 sq cm 06/02/2015 01831- Debride <25 sq cm 06/22/2015 57365-AXNFBKM SKIN/TISSUE 05/20/2016 69958-IHZZNRB SKIN/TISSUE 05/08/2016 42660-VEPVWIA SKIN/TISSUE 10/29/2013 12858-UQXXZSS SKIN/TISSUE 04/27/2014 08645-ZYPAZRL SKIN/TISSUE 10/13/2012 36282-BMSCHGR SKIN/TISSUE 10/30/2012 94727-VRPBNPH SKIN/TISSUE 09/17/2011 03713-SNUNRTK SKIN/TISSUE 10/15/2013 08098-XXFHXYN SKIN/TISSUE 01/18/2019 13360-IJJFCDD SKIN/TISSUE 02/01/2019 04117-WSFXJBJ SKIN/TISSUE 07/23/2016 12715-VWBWUGA SKIN/TISSUE 01/31/2017 54598-XMTYKJG SKIN/TISSUE 03/11/2024 84228 I&D ABSCESS- SIMPLE,SINGLE 011 20331-PTMC SKIN LESIONS, OVER 4 05/22/20 23 49359-DYKI SKIN LESIONS, OVER 4 02/14/20 23 48022-BQAN SKIN LESIONS, 2 TO 4 10/28/20 22 90560-WLMU SKIN LESIONS, 2 TO 4 09/24/20 21 27901-UJUT SKIN LESIONS, 2 TO 4 04/22/20 22 67167-MRUX SKIN LESIONS, 2 TO 4 07/22/20 22 37616-AWMU SKIN LESIONS, 2 TO 4 06/11/20 21 86283-MKGJ SKIN LESIONS, 2 TO 4 07/01/20 24 72945-ZKEH SKIN LESIONS, 2 TO 4 10/11/20 24 11451-AEZH SKIN LESIONS, 2 TO 4 09/01/20 23 49072-KFWO SKIN LESIONS, 2 TO 4 12/11/19 24 73495-DTCA SKIN LESIONS, 2 TO 4 03/11/20 24 90598-PIFS SKIN LESIONS, 2 TO 4 05/30/20 25 73594-WRET NAIL(S) 07/22/2022 47234-XGCN NAIL(S) 04/22/2022 14976-AFJW NAIL(S) 09/24/2021 55067-UNUE NAIL(S) 01/14/2022 22854-DTNO NAIL(S) 10/28/2022 S3418-NBXQPUMR DYSTROPHIC NAILS ANY # B3681-EQUJOQJJ DYSTROPHIC NAILS ANY # V1298-IFINYHZX DYSTROPHIC NAILS ANY # C9264-ZMSVMWYA DYSTROPHIC NAILS ANY # Z1487-BWMBOSME DYSTROPHIC NAILS ANY # V2496-HIPXIEBX DYSTROPHIC NAILS ANY # X8501-BHHRIXVP DYSTROPHIC NAILS ANY # W3801-JNFXKZBJ DYSTROPHIC NAILS ANY # 85689 - Tenotomy, open flexor 01/16/2018 Next Appt Details Provider Name:Julee Dickens , 09/01/2025 11:00:00 AM, [address] [place], [address], Insurance Providers Payer Name Payer Address Payer Phone Subscriber Number Group Number Insured Name Patient Relationship to Insured Coverage Start Date Coverage End Date Medicare National Govt Svcs Inc [address] [place] [address] [id number] Gina Milan Self - patient is the insured [employer] Blue Shield [address] [place] [address] [phone] [id number] Gina Milan Self - patient is [...] on feet 04/14/25 Hospitalization History Reason Date(Month/Year) [place] [facility] 3 times 10[facility]18[facility]- Right foot Ulceration 08/06/18 [facility] lumbar fusion 04/14/2017
--- OUTSIDE RECORDS SUMMARY | 2025-08-18 13:28 | XMS_ITS | Clinical Summary ---
Author Organization [facility] Address [address] [place] [address] [place] [address] Phone Care Team Providers Care Trash Collector Supervisor Name Role Phone Yolanda Jack MD Primary Care Provider [phone] Social History Tobacco Use Types Packs/Day Years [...] topic Medical Devices Not on file Insurance [place] [employer] [facility] [place] [employer] [facility] [place] E[facility] POS [facility]PO [facility] POS EPO [facility] POS EPO [facility] POS EPO [facility] POS EPO [facility] POS EPO Care Teams Trash Collector Supervisor Relationship Specialty Start Date End Date Yoalnda Jack MD [address] [place] [address] PCP - General Internal Medicine 04/06/19 Additional Source Comments The information contained in this document represents components of the legal health record. It is not the complete legal health record.[facility]
--- OUTSIDE RECORDS SUMMARY | 2025-08-18 13:29 | XMS_ITS | Encounter Summary ---
Author Organization [facility] Address [address] [place] [address] Phone Care Team Providers Care Control Room Agent Name Role Phone Yolanda Jack MD Primary Care Provider [phone] Encounter Details Date Type Department Care Team (Late st Contact Info) Description 04/07/2019 Procedure Pass [facility] [address] [place] [address] Social History Tobacco Use Types Packs/Day Years [...] on filedocumented in this encounter Care Teams Control Room Agent Relationship Specialty Start Date End Date Yolanda Jack MD [address] [facility] [place] [address] PCP - General Internal Medicine 04/06/19 documented as of this encounter Additional Source Comments The information contained in this document represents components of the legal health record. It is not the complete legal health record.[facility]
[2025-08-18 13:49] VITALS: BP 120/74; PULSE 88; RESP 19; O2SAT 97
== END 2025-08-18 15:25 | disposition home or self-care (01) ==
PROVIDERS: PCP Internal Medicine; Visit Provider Internal Medicine
DX: E11.9 Type 2 diabetes mellitus without complications (principal); E66.01 Morbid (severe) obesity due to excess calories; I50.30 Unspecified diastolic (congestive) heart failure; M86.9 Osteomyelitis, unspecified; L97.502 Non-pressure chronic ulcer of other part of unspecified foot with fat layer exposed; I11.0 Hypertensive heart disease with heart failure; I89.0 Lymphedema, not elsewhere classified

== ENCOUNTER → 2025-08-18 13:24 | Outpatient (BNVA) | payer MEDICARE, OTHER, SELFPAY | PROVIDERS: PCP Internal Medicine; Visit Provider Internal Medicine | DX: I89.0 Lymphedema, not elsewhere classified (principal); I11.0 Hypertensive heart disease with heart failure; I50.30 Unspecified diastolic (congestive) heart failure; E66.01 Morbid (severe) obesity due to excess calories; M86.9 Osteomyelitis, unspecified; E11.621 Type 2 diabetes mellitus with foot ulcer; L97.502 Non-pressure chronic ulcer of other part of unspecified foot with fat layer exposed | CPT/HCPCS: 99495 ==

== ENCOUNTER 2025-08-22 12:03 | Outpatient (REF) | payer MEDICARE, OTHER, MEDICAID, SELFPAY ==
--- OUTSIDE RECORDS SUMMARY | 2025-02-21 11:15 | XMS_ITS ---
Author Organization [facility] Address [address] [place] [address] Care Team Providers Care Undercoater Name Role Phone Yolanda Jack MD Primary Care Provider Unavaila apolinar ManinderJulee Unavailable [phone] Encounters Encounter Location Date Provider Diagnosis [address] [address] 02/21/2025 Julee Maninder Plan Of Treatment Next Appt Details Provider Name:Julee Dickens , 09/01/2025 11:00:00 AM, [address] [place] [address], [address], Progress Notes * Gina MCCULLOUGH MDOB:[birth year] (65 yo F)Acc No.[id number]:02/21/2025 Progress Note Patient: Nic Gina BARBOSA Provider: Vipul Dickens DPM :1960 A ge:64 Y S ex:Female Date:02/21/2025 Address:[address], [address], [id number] Pcp:Yolanda Jack MD Subjective: * Chief Complaints: [...] 02/21/2025 Generated for Wilder ibarra/Cuong/Gabriella on: 1 12:07 PM EDT
--- OUTSIDE RECORDS SUMMARY | 2025-08-22 12:07 | XMS_ITS | Encounter Summary ---
Author Organization [facility] Address [address] [place] [address] Phone Care Team Providers Care Barrow Worker Name Role Phone Yolanda Jack MD Primary Care Provider [phone] Encounter Details Date Type Department Care Team (Late st Contact Info) Description 04/07/2019 Procedure Pass [facility] [address] [place] [address] Social History Tobacco Use Types Packs/Day Years [...] on filedocumented in this encounter Care Teams Barrow Worker Relationship Specialty Start Date End Date Yolanda Jack MD [address] [facility] [place] [address] PCP - General Internal Medicine 04/06/19 documented as of this encounter Additional Source Comments The information contained in this document represents components of the legal health record. It is not the complete legal health record.[facility]
--- OUTSIDE RECORDS SUMMARY | 2025-08-22 12:07 | XMS_ITS | Clinical Summary ---
Author Organization [facility] Address [address] [place] [address] [place] [address] Phone Care Team Providers Care Brand Attendant Name Role Phone Yolanda Jack MD Primary Care Provider [phone] Social History Tobacco Use Types Packs/Day Years [...] topic Medical Devices Not on file Insurance [employer] [facility] [place] EPO [employer] [facility] [place] EPO [facility] POS [facility]PO [facility] POS EPO [facility] POS EPO [facility] POS EPO [facility] POS EPO [facility] POS EPO Care Teams Brand Attendant Relationship Specialty Start Date End Date Yolanda Jack MD [address] [place] [address] PCP - General Internal Medicine 04/06/19 Additional Source Comments The information contained in this document represents components of the legal health record. It is not the complete legal health record.[facility]
--- OUTSIDE RECORDS SUMMARY | 2025-08-22 12:07 | XMS_ITS | Patient Health Record ---
Author Organization [facility] Address [address] [facility] [place] [address] Care Team Providers Care Automotive Airconditioning Mechanic Name Role Phone Yolanda Jack MD Primary Care Provider Unavaila ble Black, Julee Unavailable [phone] Allergies Allergen (clinical drug ingredient) Drug/Non Drug [...] Polyneuropathy due to type 2 diabetes mellitus ([id number]) Type 2 diabetes mellitus with diabetic polyneuropathy (E11.42) Active confirmed Vital Signs Blood pressure diastolic 70 mm Hg 05/30/2025 Height 5ft1in in 05/30/2025 Blood pressure systolic 120 mm Hg 05/30/2025 Weight 290 lbs 05/30/2025 BMI 54.79 kg/m2 05/30/2025 Procedures Procedure Date Ordered Date Performed Result Body Sit e 87367-IETA SKIN LESIONS, 2 TO 4 10/11/2024 N/A F2011-EERJWGRF DYSTROPHIC NAILS ANY # 10/11/2024 N/A 65279-JJMWSRH NAIL, 6 OR MORE 05/30/2025 N/A 82880-NPLF SKIN LESIONS, 2 TO 4 05/30/2025 N/A Encounters Encounter Location Date Provider Diagnosis [address] [address] 10/11/2024 Julee Black Type 2 diabetes mellitus with diabetic polyneuropathy E11.[address] [address] 05/30/2025 Julee Black Type 2 diabetes mellitus with diabetic polyneuropathy E11.42 and Onychomycosis B35.[address] [address] 09/27/2024 [facility] [address] 01/05/20[facility] [address] [address] 02/17/2025 Julee Black Assessments Encounter Date Diagnosis [...] X ray : Foot, right 3V 12/14/2018 55343-JBHOEDB NAIL, 6 OR MORE 02/16/2018 81356-HTXEPZE NAIL, 6 OR MORE 04/20/2018 61843-IDMUCPV NAIL, 6 OR MORE 06/29/2018 46960-IFNOTUP NAIL, 6 OR MORE 09/25/2017 63465-NBYIQCV NAIL, 6 OR MORE 12/22/2017 35302-BQDQIRO NAIL, 6 OR MORE 09/19/2016 37593-XACADCH NAIL, 6 OR MORE 10/09/2016 72872-UYTPCRW NAIL, 6 OR MORE 02/17/2017 23835-ITUIIDQ NAIL, 6 OR MORE 06/19/2017 54350-OBGVDHZ NAIL, 6 OR MORE 03/24/2019 61801-UITRJCN NAIL, 6 OR MORE 07/13/2019 27607-QBXISII NAIL, 6 OR MORE 10/18/2019 68408-OCCDGXZ NAIL, 6 OR MORE 01/31/2020 92228-AUWFSAN NAIL, 6 OR MORE 04/24/2020 02051-BJFZFHW NAIL, 6 OR MORE 07/27/2020 14180-DSKZUNV NAIL, 6 OR MORE 12/13/2020 42405-HGWCZJD NAIL, 6 OR MORE 03/12/2021 74107-JDFXXZQ NAIL, 6 OR MORE 05/20/2016 85787-EDHWNXU NAIL, 6 OR MORE 12/04/2015 59034-UGHRRGV NAIL, 6 OR MORE 02/14/2016 65159-JTSDWTW NAIL, 6 OR MORE 05/08/2016 49666-WPOXFPT NAIL, 6 OR MORE 08/02/2015 70358-AFTCLXR NAIL, 6 OR MORE 08/07/2015 48026-UNAMJEJ NAIL, 6 OR MORE 10/29/2013 10972-PBYPARA NAIL, 6 OR MORE 04/27/2014 70273-QKLKERP NAIL, 6 OR MORE 07/27/2014 35114-OLWJDTO NAIL, 6 OR MORE 10/26/2014 40538-LNZIMBW NAIL, 6 OR MORE 01/25/2015 95734-BXBTGRT NAIL, 6 OR MORE 01/13/2012 76417-LLAVFXS NAIL, 6 OR MORE 03/25/2012 68202-GOQDRDM NAIL, 6 OR MORE 06/24/2012 33871-JPCCVXV NAIL, 6 OR MORE 12/02/2012 94129-FUFSAOB NAIL, 6 OR MORE 02/15/2013 19987-XPVMINS NAIL, 6 OR MORE 04/22/2013 60728-ZLUWVKC NAIL, 6 OR MORE 05/30/2025 33356-GAGHFDZ NAIL, 1-5 01/19/2014 26462-Tkaylimc Plate 01/25/2015 81466-Oftwolbe Plate 10/26/2014 28735-Jyitjsfh Plate 07/27/2014 52871-Hggyoxdb Plate 08/07/2015 39947-Uejnmope Plate 08/02/2015 65059-Qdfbwdbo Plate 05/04/2015 16833-Rxfjbqcl Plate 10/24/2015 62871-Qdmpibfd Plate 05/20/2013 52414-Hreywogh Plate 06/23/2013 97434-Okwqzjls Plate 03/31/2013 75425-Ifgggxnx Plate 03/01/2013 40615-Pfnjbqym Plate 06/24/2012 35062-Ksxgkdkn Plate 09/16/2012 84016-Msjojaka Plate 03/25/2012 79263-Chtlrpea Plate 06/11/2021 45007-Larospou Plate 12/13/2020 11629-Pzalewyd Plate 07/27/2020 20936-Ijqoiunn Plate 10/18/2019 29911-Psgbnrpb Plate 01/31/2020 61464-Funbgxnv Plate Each Additional 67650-Kleozlwt Plate Each Additional 57163-Lozpjeye Plate Each Additional 03107-Bkvucnku Plate Each Additional 47069-Wsmmqcks Plate Each Additional 65494-JBX 09/23/2013 67702-FOW 10/15/2013 09943-LYS 01/16/2017 69040- Debride <25 sq cm 01/16/2017 27032- Debride <25 sq cm 01/31/2017 98720- Debride <25 sq cm 02/17/2017 28339- Debride <25 sq cm 09/25/2017 18575- Debride <25 sq cm 03/20/2017 29501- Debride <25 sq cm 10/09/2016 85828- Debride <25 sq cm 10/23/2016 29762- Debride <25 sq cm 11/28/2016 60703- Debride <25 sq cm 01/01/2017 64150- Debride <25 sq cm 09/19/2016 04798- Debride <25 sq cm 06/06/2016 26147- Debride <25 sq cm 08/09/2016 09820- Debride <25 sq cm 02/16/2018 91861- Debride <25 sq cm 10/28/2017 03612- Debride <25 sq cm 11/17/2017 28403- Debride <25 sq cm 12/22/2017 65094- Debride <25 sq cm 08/13/2018 05540- Debride <25 sq cm 09/03/2018 44595- Debride <25 sq cm 09/24/2018 20272- Debride <25 sq cm 10/08/2018 05210- Debride <25 sq cm 04/20/2018 95528- Debride <25 sq cm 02/18/2019 02169- Debride <25 sq cm 03/24/2019 38502- Debride <25 sq cm 01/14/2022 51615- Debride <25 sq cm 10/28/2022 98471- Debride <25 sq cm 02/13/2023 44064- Debride <25 sq cm 05/22/2023 06520- Debride <25 sq cm 06/23/2013 15847- Debride <25 sq cm 05/20/2013 56380- Debride <25 sq cm 03/01/2013 82069- Debride <25 sq cm 03/15/2013 16040- Debride <25 sq cm 03/31/2013 96420- Debride <25 sq cm 04/22/2013 80360- Debride <25 sq cm 02/15/2013 52515- Debride <25 sq cm 03/25/2012 21825- Debride <25 sq cm 01/13/2012 41855- Debride <25 sq cm 09/16/2012 08881- Debride <25 sq cm 12/02/2012 74001- Debride <25 sq cm 06/24/2012 60744- Debride <25 sq cm 07/27/2014 80459- Debride <25 sq cm 10/26/2014 74636- Debride <25 sq cm 01/25/2015 12655- Debride <25 sq cm 01/19/2014 03886- Debride <25 sq cm 10/28/2011 97280- Debride <25 sq cm 11/19/2013 72295- Debride <25 sq cm 05/04/2015 93667- Debride <25 sq cm 05/18/2015 88214- Debride <25 sq cm 06/02/2015 27139- Debride <25 sq cm 06/22/2015 20855-MJPIMGS SKIN/TISSUE 05/20/2016 57972-BFEXELI SKIN/TISSUE 05/08/2016 93588-XZPFTZX SKIN/TISSUE 10/29/2013 32878-AOTJPYE SKIN/TISSUE 04/27/2014 20739-RSJTUAZ SKIN/TISSUE 10/13/2012 32023-SUFTTIP SKIN/TISSUE 10/30/2012 79882-OJFKLFL SKIN/TISSUE 09/17/2011 88771-EZZTSHH SKIN/TISSUE 10/15/2013 66605-NZJVUHF SKIN/TISSUE 01/18/2019 72572-BKDSIFH SKIN/TISSUE 02/01/2019 76425-KIMBIBN SKIN/TISSUE 07/23/2016 32563-BZYUDAF SKIN/TISSUE 01/31/2017 63025-AOMKGDN SKIN/TISSUE 03/11/2024 40898 I&D ABSCESS- SIMPLE,SINGLE 011 19183-TUNU SKIN LESIONS, OVER 4 05/22/20 23 87711-UKLY SKIN LESIONS, OVER 4 02/14/20 23 86151-ZPAF SKIN LESIONS, 2 TO 4 10/28/20 22 72568-MZGY SKIN LESIONS, 2 TO 4 09/24/20 21 64741-DJEN SKIN LESIONS, 2 TO 4 04/22/20 22 87498-GGLE SKIN LESIONS, 2 TO 4 07/22/20 22 92048-LUAO SKIN LESIONS, 2 TO 4 06/11/20 21 09049-YFIM SKIN LESIONS, 2 TO 4 07/01/20 24 72120-OZKG SKIN LESIONS, 2 TO 4 10/11/20 24 05536-UAKJ SKIN LESIONS, 2 TO 4 09/01/20 23 28351-IACK SKIN LESIONS, 2 TO 4 12/11/19 24 93786-XYYW SKIN LESIONS, 2 TO 4 03/11/20 24 00225-BWXH SKIN LESIONS, 2 TO 4 05/30/20 25 20981-WETP NAIL(S) 07/22/2022 92762-PCNZ NAIL(S) 04/22/2022 44435-NLWB NAIL(S) 09/24/2021 08197-NQTZ NAIL(S) 01/14/2022 47412-IWTU NAIL(S) 10/28/2022 W0757-NHKHRIUG DYSTROPHIC NAILS ANY # M2937-DGBLZKBU DYSTROPHIC NAILS ANY # M3536-UPIJPJSL DYSTROPHIC NAILS ANY # M7020-ILEXTEJJ DYSTROPHIC NAILS ANY # W0475-DVOYMMJP DYSTROPHIC NAILS ANY # Q3842-AOMIHPOW DYSTROPHIC NAILS ANY # V4878-IUGMWMLM DYSTROPHIC NAILS ANY # K0803-RYIGHQMK DYSTROPHIC NAILS ANY # 03006 - Tenotomy, open flexor 01/16/2018 Next Appt Details Provider Name:Julee Dickens , 09/01/2025 11:00:00 AM, [address] [place], [address], Insurance Providers Payer Name Payer Address Payer Phone Subscriber Number Group Number Insured Name Patient Relationship to Insured Coverage Start Date Coverage End Date Medicare National Govt Svcs Inc [address] [place] [address] [id number] Gina Milan Self - patient is the insured [employer] Blue Shield [address] [place] [address] [phone] [id number] Gina Milan Self - patient is [...] on feet 04/14/25 Hospitalization History Reason Date(Month/Year) [place] [facility] times 10[facility]18[facility] [facility] Right foot Ulceration 08/06/18 [facility] lumbar fusion 04/14/2017
--- OUTSIDE RECORDS SUMMARY | 2025-08-22 12:08 | XMS_ITS | Encounter Summary ---
Author Organization [facility] Address [address] [place] [address] Phone Care Team Providers Care Office Service Coordinator Name Role Phone Yolanda Jack MD Primary Care Provider [phone] Encounter Details Date Type Department Care Team (Late st Contact Info) Description 04/07/2019 Procedure Pass [facility] [address] [place] [address] Social History Tobacco Use Types Packs/Day Years [...] on filedocumented in this encounter Care Teams Office Service Coordinator Relationship Specialty Start Date End Date Yolanda Jack MD [address] [address] PCP - General Internal Medicine 04/06/19 documented as of this encounter Additional Source Comments The information contained in this document represents components of the legal health record. It is not the complete legal health record.[facility]
[2025-08-22 12:12] LABS: MANUAL DIFF FLAG NO
[2025-08-22 12:18] LABS: Hematocrit 33.1 % (37.0-47.0); Hemoglobin 10.3 g/dl (12.0-16.0); Imm Gran Abs Auto 0.03 X10*3/uL (0.00-0.03); Imm Gran Pct Auto 0.4 % (0.0-0.4); Lymphocytes Absolute Auto 2.0 X10*3/uL (1.2-4.9); Mean Corpuscular HGB Conc 31.1 g/dl (31.0-35.0); Mean Corpuscular Hemoglobin 27.0 pg (27.0-33.0); Mean Corpuscular Volume 86.9 fL (80.0-98.0); NRBC Abs Auto 0.000 X10*3/uL (0.0-0.012); NRBC Pct Auto 0.0 /100WBC (0.0-0.2); Platelet Count 224 X10*3/uL (160-400); Red Blood Count 3.81 X10*6/uL (4.20-5.50); White Blood Count 7.8 X10*3/uL (4.8-10.8)
[2025-08-22 12:51] LABS: Alanine Aminotransferase 15 U/L (0-31); Albumin Level 4.0 g/dL (3.5-5.0); Alkaline Phosphatase 86 U/L (39-117); Anion Gap 14 (12-20); Aspartate Amino Transferase 21 U/L (5-31); Blood Urea Nitrogen 29 mg/dL (9-16); Calcium 8.5 mg/dL (8.4-10.2); Carbon Dioxide 27 mmol/L (22-29); Chloride 104 mmol/L (96-108); Estimated Glomerular Filt Rate 55; Potassium 4.2 mmol/L (3.3-5.1); Sodium 141 mmol/L (135-145); Total Protein 7.1 g/dL (6.5-8.0)
== END 2025-08-22 12:04 | disposition home or self-care (01) ==
LOC: HO.HVNA 12:03
PROVIDERS: Visit Provider Internal Medicine
DX: A41.81 Sepsis due to Enterococcus (principal); L03.115 Cellulitis of right lower limb; M86.171 Other acute osteomyelitis, right ankle and foot
CPT/HCPCS: 36415; 80048; 80076; 85025; 85652; 86140

== ENCOUNTER 2025-08-29 16:07 | Outpatient (REF) | payer MEDICARE, OTHER, MEDICAID, SELFPAY ==
--- OUTSIDE RECORDS SUMMARY | 2025-01-10 05:15 | XMS_ITS ---
Author Organization [facility] Address [address] [facility] [place] [address] Care Team Providers Care City Tax Auditor Name Role Phone Yolanda Jack MD Primary Care Provider Unavaila apolinar Enoc Dickensmie Unavailable [phone] Allergies Allergen (clinical drug ingredient) Drug/Non Drug [...] Active Encounters Encounter Location Date Provider Diagnosis [facility] [address] [address] 01/10/2025 Julee Maninder Plan Of Treatment Next Appt Details Provider Name:Julee A Maninder , 09/01/2025 11:00:00 AM, [address] [place] [address], [address], Progress Notes * Gina MCCULLOUGH MDOB:[birth year] (65 yo F)Acc No.[id number]:01/10/2025 Progress Note Patient: Gina WEBB Provider: Vipul Dickens DPM :1960 A ge:64 Y S ex:Female Date:01/10/2025 Address:[facility] [address] , [address], [place] Pcp:Yolanda Jack MD Subjective: * Chief Complaints: [...] 0 01/10/2025 Generated for Wilder ibarra/Cuong/Gabriella on: 08:26 PM EDT
--- OUTSIDE RECORDS SUMMARY | 2025-02-21 11:15 | XMS_ITS ---
Author Organization [facility] Address [address] [place] [address] Care Team Providers Care Gill Tender Name Role Phone Yolanda Jack MD Primary Care Provider Unavaila apolinar ManinderJulee Unavailable [phone] Encounters Encounter Location Date Provider Diagnosis [address] [address] 02/21/2025 Julee Maninder Plan Of Treatment Next Appt Details Provider Name:Julee Dickens , 09/01/2025 11:00:00 AM, [address] [place] [address], [phone], Progress Notes * Gina MCCULLOUGH MDOB:[birth year] (65 yo F)Acc No.[id number]:02/21/2025 Progress Note Patient: Nic Gina BARBOSA Provider: Vipul Dickens DPM :1960 A ge:64 Y S ex:Female Date:02/21/2025 Address:[address], [id number] Pcp:Yolanda Jack MD Subjective: * Chief Complaints: [...] 02/21/2025 Generated for Wilder ibarra/Cuong/Gabriella on: 1 08:26 PM EDT
[2025-08-29 16:15] LABS: MANUAL DIFF FLAG NO
[2025-08-29 16:39] LABS: Hematocrit 32.0 % (37.0-47.0); Hemoglobin 10.1 g/dl (12.0-16.0); Imm Gran Abs Auto 0.02 X10*3/uL (0.00-0.03); Imm Gran Pct Auto 0.2 % (0.0-0.4); Lymphocytes Absolute Auto 2.5 X10*3/uL (1.2-4.9); Mean Corpuscular HGB Conc 31.6 g/dl (31.0-35.0); Mean Corpuscular Hemoglobin 27.1 pg (27.0-33.0); Mean Corpuscular Volume 85.8 fL (80.0-98.0); NRBC Abs Auto 0.000 X10*3/uL (0.0-0.012); NRBC Pct Auto 0.0 /100WBC (0.0-0.2); Platelet Count 232 X10*3/uL (160-400); Red Blood Count 3.73 X10*6/uL (4.20-5.50); White Blood Count 8.6 X10*3/uL (4.8-10.8)
[2025-08-29 17:25] LABS: Alanine Aminotransferase 23 U/L (0-31); Albumin Level 3.8 g/dL (3.5-5.0); Alkaline Phosphatase 84 U/L (39-117); Anion Gap 14 (12-20); Aspartate Amino Transferase 24 U/L (5-31); Blood Urea Nitrogen 25 mg/dL (9-16); Calcium 8.6 mg/dL (8.4-10.2); Carbon Dioxide 28 mmol/L (22-29); Chloride 103 mmol/L (96-108); Estimated Glomerular Filt Rate > 60; Potassium 3.8 mmol/L (3.3-5.1); Sodium 141 mmol/L (135-145); Total Protein 6.9 g/dL (6.5-8.0)
--- OUTSIDE RECORDS SUMMARY | 2025-08-29 20:26 | XMS_ITS | Encounter Summary ---
Author Organization [facility] Address [address] [place] [address] Phone Care Team Providers Care Dock Builder Name Role Phone Yolanda Jack MD Primary Care Provider Encounter Details Date Type Department Care Team (Late st Contact Info) Description 04/07/2019 Procedure Pass [facility] [address] [place] [address] Social History Tobacco Use Types Packs/Day Years [...] on filedocumented in this encounter Care Teams Dock Builder Relationship Specialty Start Date End Date Yolanda Jack MD [address] [place] [address] PCP - General Internal Medicine 04/06/19 documented as of this encounter Additional Source Comments The information contained in this document represents components of the legal health record. It is not the complete legal health record.[facility]
--- OUTSIDE RECORDS SUMMARY | 2025-08-29 20:27 | XMS_ITS | Encounter Summary ---
Author Organization [facility] Address [address] [place] [phone] Phone Care Team Providers Care Glass Washer And Carrier Name Role Phone Yolanda Jack MD Primary Care Provider [phone] Encounter Details Date Type Department Care Team (Late st Contact Info) Description 04/07/2019 Procedure Pass [facility] [address] [place] [address] Social History Tobacco Use Types Packs/Day Years [...] on filedocumented in this encounter Care Teams Glass Washer And Carrier Relationship Specialty Start Date End Date Yolanda Jack MD [address] [facility] [place] [address] PCP - General Internal Medicine 04/06/19 documented as of this encounter Additional Source Comments The information contained in this document represents components of the legal health record. It is not the complete legal health record.[facility]
--- OUTSIDE RECORDS SUMMARY | 2025-08-29 20:27 | XMS_ITS | Clinical Summary ---
Author Organization [facility] Address [address] [place] [address] [place] [phone] Phone Care Team Providers Care Joint Setter Name Role Phone Yolanda Jack MD Primary Care Provider [phone] Social History Tobacco Use Types Packs/Day Years [...] topic Medical Devices Not on file Insurance [place] [employer] [facility] POS EPO [place] [employer] [facility] EPO [facility] POS EPO [facility] POS EPO [facility] POS EPO [facility] POS EPO Care Teams Joint Setter Relationship Specialty Start Date End Date Yolanda Jack MD [address] [place] [address] PCP - General Internal Medicine 04/06/19 Additional Source Comments The information contained in this document represents components of the legal health record. It is not the complete legal health record.[facility]
--- OUTSIDE RECORDS SUMMARY | 2025-08-29 20:27 | XMS_ITS | Patient Health Record ---
Author Organization [facility] Address [address] [facility] [place] [address] Care Team Providers Care Stoneworker Name Role Phone Yolanda Jack MD Primary Care Provider Unavaila ble Black, Julee Unavailable [phone] Allergies Allergen (clinical drug ingredient) Drug/Non Drug [...] Status W/U Status Risk Notes Problem Acquired hammer toe of right foot (6499479437297178 ) Other hammer toe(s) (acquired), right foot (M20.41) Active confirmed Problem Acquired hammer toe of left foot (7201118226552056 ) Other hammer toe(s) (acquired), left foot (M20.42) Active confirmed Problem Polyneuropathy due to type 2 diabetes mellitus (620831320) Type 2 diabetes mellitus with diabetic polyneuropathy (E11.42) Active confirmed Vital Signs Blood pressure diastolic 70 mm Hg 05/30/2025 Height 5ft1in in 05/30/2025 Blood pressure systolic 120 mm Hg 05/30/2025 Weight 290 lbs 05/30/2025 BMI 54.79 kg/m2 05/30/2025 Procedures Procedure Date Ordered Date Performed Result Body Sit e 84734-ZZCD SKIN LESIONS, 2 TO 4 10/11/2024 N/A E8264-DNDLSCFQ DYSTROPHIC NAILS ANY # 10/11/2024 N/A 45641-AOSRZTN NAIL, 6 OR MORE 05/30/2025 N/A 45983-LKJG SKIN LESIONS, 2 TO 4 05/30/2025 N/A Encounters Encounter Location Date Provider Diagnosis [address] [address] 10/11/2024 Julee Black Type 2 diabetes mellitus with diabetic polyneuropathy E11.[address] [address] 05/30/2025 Julee Black Type 2 diabetes mellitus with diabetic polyneuropathy E11.42 and Onychomycosis B35.[address] [address] 09/27/2024 Julee Dickens [address] [address] 01/05/2025 Julee [facility] [place] [address] [place] [address] 02/17/2025 Julee Dickens Assessments Encounter Date Diagnosis [...] X ray : Foot, right 3V 12/14/2018 68936-PRPKMAF NAIL, 6 OR MORE 02/16/2018 52893-OMOYPOT NAIL, 6 OR MORE 04/20/2018 00036-DZLWWFB NAIL, 6 OR MORE 06/29/2018 29762-MNNVQPV NAIL, 6 OR MORE 09/25/2017 72418-ASZHMMZ NAIL, 6 OR MORE 12/22/2017 49538-USZDBUQ NAIL, 6 OR MORE 09/19/2016 89400-NRPDNPD NAIL, 6 OR MORE 10/09/2016 29151-GPUQKMF NAIL, 6 OR MORE 02/17/2017 47369-NKQAQOY NAIL, 6 OR MORE 06/19/2017 45217-JKCJHDF NAIL, 6 OR MORE 03/24/2019 72455-AYEROWS NAIL, 6 OR MORE 07/13/2019 91463-ZLSTVSO NAIL, 6 OR MORE 10/18/2019 43801-JOHBOFX NAIL, 6 OR MORE 01/31/2020 44580-HNKSHEJ NAIL, 6 OR MORE 04/24/2020 55393-UHWCJPY NAIL, 6 OR MORE 07/27/2020 23436-ULMMRMV NAIL, 6 OR MORE 12/13/2020 12317-CLGQTSA NAIL, 6 OR MORE 03/12/2021 97030-XEELRLO NAIL, 6 OR MORE 05/20/2016 11364-KIEWDFA NAIL, 6 OR MORE 12/04/2015 43404-MYIEFZL NAIL, 6 OR MORE 02/14/2016 74679-DOTXRKQ NAIL, 6 OR MORE 05/08/2016 52665-EGOQPQJ NAIL, 6 OR MORE 08/02/2015 99018-JJSAIVS NAIL, 6 OR MORE 08/07/2015 30626-AZMCTGG NAIL, 6 OR MORE 10/29/2013 32240-DQRROXE NAIL, 6 OR MORE 04/27/2014 66887-KCESXXN NAIL, 6 OR MORE 07/27/2014 01977-OMIDVYA NAIL, 6 OR MORE 10/26/2014 73714-SCAPTAN NAIL, 6 OR MORE 01/25/2015 56417-VVURVEM NAIL, 6 OR MORE 01/13/2012 96622-YUPFQRA NAIL, 6 OR MORE 03/25/2012 79632-GKILBOJ NAIL, 6 OR MORE 06/24/2012 66069-DHAIFBL NAIL, 6 OR MORE 12/02/2012 30956-HGGHVPR NAIL, 6 OR MORE 02/15/2013 25068-DBXSKFK NAIL, 6 OR MORE 04/22/2013 20346-IWUGZWY NAIL, 6 OR MORE 05/30/2025 22000-KJPWLPW NAIL, 1-5 01/19/2014 12179-Ciadndlr Plate 01/25/2015 12429-Nmpnuwwm Plate 10/26/2014 40650-Xbtwuucu Plate 07/27/2014 03308-Hztstrrr Plate 08/07/2015 66139-Jevlooyd Plate 08/02/2015 65494-Wjnnxyba Plate 05/04/2015 26263-Wevunkjd Plate 10/24/2015 37314-Dgngtlbg Plate 05/20/2013 96036-Ylyudeis Plate 06/23/2013 28823-Cbyntliz Plate 03/31/2013 12951-Gikqlevh Plate 03/01/2013 01962-Vcocozsi Plate 06/24/2012 31627-Xxuifkim Plate 09/16/2012 61789-Bniumsny Plate 03/25/2012 52043-Ovjzvluy Plate 06/11/2021 74262-Szhdwgvi Plate 12/13/2020 81804-Lftktsoo Plate 07/27/2020 09491-Lmahssij Plate 10/18/2019 27844-Bnvqdknd Plate 01/31/2020 52277-Ohaynnih Plate Each Additional 73453-Yjwqoeey Plate Each Additional 80241-Dhtukdjt Plate Each Additional 14235-Sakqqoyh Plate Each Additional 85133-Lwiopokh Plate Each Additional 95886-PSM 09/23/2013 78286-NVW 10/15/2013 23498-LUQ 01/16/2017 61997- Debride <25 sq cm 01/16/2017 37948- Debride <25 sq cm 01/31/2017 35386- Debride <25 sq cm 02/17/2017 01365- Debride <25 sq cm 09/25/2017 09969- Debride <25 sq cm 03/20/2017 85066- Debride <25 sq cm 10/09/2016 71979- Debride <25 sq cm 10/23/2016 25720- Debride <25 sq cm 11/28/2016 79066- Debride <25 sq cm 01/01/2017 92037- Debride <25 sq cm 09/19/2016 94546- Debride <25 sq cm 06/06/2016 49140- Debride <25 sq cm 08/09/2016 53401- Debride <25 sq cm 02/16/2018 56959- Debride <25 sq cm 10/28/2017 05435- Debride <25 sq cm 11/17/2017 85799- Debride <25 sq cm 12/22/2017 77304- Debride <25 sq cm 08/13/2018 07207- Debride <25 sq cm 09/03/2018 44359- Debride <25 sq cm 09/24/2018 24507- Debride <25 sq cm 10/08/2018 99373- Debride <25 sq cm 04/20/2018 47884- Debride <25 sq cm 02/18/2019 63438- Debride <25 sq cm 03/24/2019 92670- Debride <25 sq cm 01/14/2022 56941- Debride <25 sq cm 10/28/2022 99988- Debride <25 sq cm 02/13/2023 52054- Debride <25 sq cm 05/22/2023 44031- Debride <25 sq cm 06/23/2013 94159- Debride <25 sq cm 05/20/2013 59975- Debride <25 sq cm 03/01/2013 31911- Debride <25 sq cm 03/15/2013 54650- Debride <25 sq cm 03/31/2013 17982- Debride <25 sq cm 04/22/2013 71646- Debride <25 sq cm 02/15/2013 45006- Debride <25 sq cm 03/25/2012 86117- Debride <25 sq cm 01/13/2012 21161- Debride <25 sq cm 09/16/2012 48032- Debride <25 sq cm 12/02/2012 01293- Debride <25 sq cm 06/24/2012 95752- Debride <25 sq cm 07/27/2014 08280- Debride <25 sq cm 10/26/2014 88382- Debride <25 sq cm 01/25/2015 68970- Debride <25 sq cm 01/19/2014 60024- Debride <25 sq cm 10/28/2011 57226- Debride <25 sq cm 11/19/2013 79661- Debride <25 sq cm 05/04/2015 62480- Debride <25 sq cm 05/18/2015 39877- Debride <25 sq cm 06/02/2015 81512- Debride <25 sq cm 06/22/2015 06787-UXCWQBN SKIN/TISSUE 05/20/2016 96029-IZRCRBB SKIN/TISSUE 05/08/2016 30615-MQUPNTV SKIN/TISSUE 10/29/2013 56908-FJEUDNB SKIN/TISSUE 04/27/2014 59344-RIYOUHA SKIN/TISSUE 10/13/2012 10734-NSOUFRF SKIN/TISSUE 10/30/2012 32057-NDMIHLN SKIN/TISSUE 09/17/2011 62911-AKVMGIZ SKIN/TISSUE 10/15/2013 19642-BBCQQGX SKIN/TISSUE 01/18/2019 24674-BXLMTJE SKIN/TISSUE 02/01/2019 29902-KLKTUVW SKIN/TISSUE 07/23/2016 70613-AISRSTB SKIN/TISSUE 01/31/2017 95840-BEQXATG SKIN/TISSUE 03/11/2024 06919 I&D ABSCESS- SIMPLE,SINGLE 011 90475-LUFB SKIN LESIONS, OVER 4 05/22/20 23 60529-GHHY SKIN LESIONS, OVER 4 02/14/20 23 58574-STWC SKIN LESIONS, 2 TO 4 10/28/20 22 24514-TYUW SKIN LESIONS, 2 TO 4 09/24/20 21 87885-VYGE SKIN LESIONS, 2 TO 4 04/22/20 22 94485-AUOS SKIN LESIONS, 2 TO 4 07/22/20 22 12825-HBMS SKIN LESIONS, 2 TO 4 06/11/20 21 49512-XNYP SKIN LESIONS, 2 TO 4 07/01/20 24 38358-QDXI SKIN LESIONS, 2 TO 4 10/11/20 24 07561-BEGJ SKIN LESIONS, 2 TO 4 09/01/20 23 04544-AGNE SKIN LESIONS, 2 TO 4 12/11/19 24 36220-KNFU SKIN LESIONS, 2 TO 4 03/11/20 24 26965-HSYD SKIN LESIONS, 2 TO 4 05/30/20 25 21368-RSZI NAIL(S) 07/22/2022 86736-UVUL NAIL(S) 04/22/2022 11780-MWTG NAIL(S) 09/24/2021 31835-GMSX NAIL(S) 01/14/2022 37440-ALJB NAIL(S) 10/28/2022 D2652-FFFKRPIL DYSTROPHIC NAILS ANY # S7342-OPOJHIVR DYSTROPHIC NAILS ANY # K5633-ZJQQEGIA DYSTROPHIC NAILS ANY # V5635-ROCSBMCB DYSTROPHIC NAILS ANY # S7298-WYPHCHJU DYSTROPHIC NAILS ANY # A6714-DAWEJFQO DYSTROPHIC NAILS ANY # E5649-YICDWZBS DYSTROPHIC NAILS ANY # R5827-TBWCBYCS DYSTROPHIC NAILS ANY # 71199 - Tenotomy, open flexor 01/16/2018 Next Appt Details Provider Name:Julee Dickens , 09/01/2025 11:00:00 AM, [address] [place], [address], Insurance Providers Payer Name Payer Address Payer Phone Subscriber Number Group Number Insured Name Patient Relationship to Insured Coverage Start Date Coverage End Date Medicare [facility] [address] [place] [address] [id number] Gina Milan Self - patient is the insured [employer] [address] [place] [address] [phone] [id number] Gina Milan Self - patient is the [...] w/K-Wire 2nd Left 08/23 Colonoscopy 04/03/2018 Kyara R, LIV 2nd R SE: Sag Saw & [place] e 11/18/2018 Skin grafts for wounds on feet 04/14/25 Hospitalization History Reason Date(Month/Year) [facility] 08/06/18 [facility] lumbar fusion 04/14/2017
== END 2025-08-29 16:08 | disposition home or self-care (01) ==
LOC: HO.HVNA 16:07
PROVIDERS: Visit Provider Internal Medicine
DX: A41.81 Sepsis due to Enterococcus (principal); M86.171 Other acute osteomyelitis, right ankle and foot; L03.115 Cellulitis of right lower limb
CPT/HCPCS: 36415; 80048; 80076; 85025; 85652; 86140

== ENCOUNTER 2025-09-05 12:32 | Outpatient (REF) | payer MEDICARE, OTHER, MEDICAID, SELFPAY ==
--- OUTSIDE RECORDS SUMMARY | 2025-01-10 05:15 | XMS_ITS ---
Author Organization [facility] Address [address] [facility] [place] [address] Care Team Providers Care Processing Rep Name Role Phone Yolanda Jack MD Primary Care Provider Unavaila ble Enoc Dickensmie Unavailable [phone] Allergies Allergen (clinical drug ingredient) Drug/Non Drug [...] Active Encounters Encounter Location Date Provider Diagnosis [facility] [address] [address] 01/10/2025 Julee Maninder Plan Of Treatment Next Appt Details Provider Name:Julee A Maninder , 01/02/2026 11:00:00 AM, [address] [place] [address], [phone], Progress Notes * Gina MCCULLOUGH MDOB:[birth year] (65 yo F)Acc No.[id number]:01/10/2025 Progress Note Patient: Gina WEBB Provider: Vipul Dickens DPM :1960 A ge:64 Y S ex:Female Date:01/10/2025 Address:[facility] [address] , [address], [place] Pcp:Yolanda Jack MD Subjective: * Chief Complaints: [...] 0 01/10/2025 Generated for Wilder ibarra/Cuong/Gabriella on: 03:57 PM EDT
--- OUTSIDE RECORDS SUMMARY | 2025-02-21 11:15 | XMS_ITS ---
Author Organization [facility] Address [address] [place] [address] Care Team Providers Care Range Aid Name Role Phone Yolanda Jack MD Primary Care Provider Unavaila apolinar ManinderJulee Unavailable [phone] Encounters Encounter Location Date Provider Diagnosis [address] [address] 02/21/2025 Julee Maninder Plan Of Treatment Next Appt Details Provider Name:Julee Dickens , 01/02/2026 11:00:00 AM, [address] [place] [address], [address], Progress Notes * Gina MCCULLOUGH MDOB:[birth year] (65 yo F)Acc No.[id number]:02/21/2025 Progress Note Patient: Nic Gina BARBOSA Provider: Vipul Dickens DPM :1960 A ge:64 Y S ex:Female Date:02/21/2025 Address:[address], [id number] Pcp:Yolanda Jack MD Subjective: * Chief Complaints: [...] 02/21/2025 Generated for Wilder ibarra/Cuong/Gabriella on: 1 03:57 PM EDT
--- OUTSIDE RECORDS SUMMARY | 2025-09-01 07:00 | XMS_ITS ---
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41,M20.42), Preulcerative Skin Lesion(s) (L85.1); Duration: 365 days 09/01/2025 Active Acidophilus Orally Active Bactrim DS 800-160 MG 1 tablet Orally Twice a day; Duration: 10 day(s) 11/27/2018 Not-Taking Acetaminophen Extra Strength 500 MG 2 tablets [...] 6 hrs; Duration: 10 day(s) 12/01/2018 Not-Taking Ozempic .5 inject 1 a month Not-Taking Crestor Not-Taking metFORMIN HCl 500 MG 1 tablet with a vasu l Orally Once a day; Duration: 30 day(s) Not-Taking Atenolol 50 MG 1 tablet Orally twice daily Not-Taking rOPINIRole HCl 2 MG 1 tablet Orally Once a day Not-Taking Iodosorb 0.9 % as directed Externally as needed PRN Not-Taking Mounjaro 5 MG/0.5ML Subcutaneous; Duration: 28 Days Active Orthopedic Extra Depth Shoes With Custom Heat Molded Multidensity Innersoles as directed Wear Daily; Duration: as needed 12/13/2020 Not-Taking oxyBUTYnin Not-Takin g Potassium Chloride 20 MEQ Orally Once a day Not-Taking Vitamin D 1000 UNIT 1 tablet Orally Once a day Active Tylenol Arthritis Pain 650 mg 1 tablet twice daily Active Extra-Depth Diabetic Shoes with 3 Pair Custom heat-molded multi-density innersoles . for 1 year . Dx:hammertoes with hx of ulcers; Duration: . 04/27/2014 Active vitamin Active Extra Depth Diabetic Shoes with 3 Pair Custom heat-molded multi-density innersoles for 1 year Dx: 07/01/2024 Active Terazosin HCl 10 MG Orally 2 po QD Active PriLOSEC Active hydrALAZINE HCl 50 MG 1 tablet with food Orally Twice Daily 3x daily Active Lyrica 150 MG Orally Twice a day Active Irbesartan 300 MG 1 tablet Orally Once a day Active Rosuvastatin Calcium Active Carvedilol Active Fish Oil Active Furosemide 40mg Active Gabapentin 300 MG 3 capsules Orally Once a day Active CeleBREX 200 MG 1 capsule with food Orally Twice a day Active Aspir-Low Active Social History Tobacco Use: Social History [...] ast year? No Points 0 Interpretation Negative Problems Problem Type SNOMED Code ICD Code Onset Dates Problem Status W/U Status Risk Notes Problem Acquired hammer toe of right foot (2705967749123072 ) Other hammer toe(s) (acquired), right foot (M20.41) Active confirmed Problem Acquired hammer toe of left foot (9938504092581612 ) Other hammer toe(s) (acquired), left foot (M20.42) Active confirmed Problem Osteomyelitis (19479216) 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) Active confirmed Vital Signs Height 5ft1in in 09/01/2025 Weight 290 lbs 09/01/2025 BMI 54.79 kg/m2 09/01/2025 Blood pressure systolic 120 mm Hg 09/01/20 25 Blood pressure diastolic 70 mm Hg 025 Procedures Procedure Date Ordered Date Performed Result Body Sit e 89603-EPAAIDR NAIL, 6 OR MORE 09/01/2025 N/A 38809-EPKY SKIN LESIONS, 2 TO 4 09/01/2025 N/A Encounters Encounter Location Date Provider Diagnosis [facility] [address] [address] 09/01/2025 Julee Black Other hammer toe(s) (acquired), right foot M20.41 ; Other hammer toe(s) (acquired), left foot M20.42 ; Type 2 diabetes mellitus with diabetic polyneuropathy E11.42 ; Onychomycosis B35.1 and Toe osteomyelitis M86.9 Assessments Encounter Date Diagnosis (ICD Code) Assessment Notes Treatment Notes Treatment Clinical Notes Section Notes 09/01/2025 Other hammer toe(s) (acquired), right foot (ICD-10 - M20.41) Patient Educated with: DIABETIC FOOT CARE INSTRUCTIONS. pdf (DIABETIC FOOT CARE INSTRUCTIONS. pdf) 09/01/2025 Other hammer toe(s) (acquired), left foot (ICD-10 - M20.42) 09/01/2025 Type 2 diabetes mellitus with diabetic polyneuropathy (ICD-10 - E11.42) 09/01/2025 Onychomycosis (ICD-10 - B35.1) 09/01/2025 Toe osteomyelitis (ICD-10 - M86.9) Plan Of Treatment Medication Medication Name Sig Start Date Stop Date Notes Extra Depth Orthopedic Shoes (1 Pair) with Customized Heat Molded Multidensity Innersoles (3 Pair) Dx: NIDDM/Polyneuropathy (E11.42), Hammertoe Foot Deformity (M20.41,M20.42), Preulcerative Skin Lesion(s) (L85.1); Duration: 365 days 09/01/2025 Treatment Notes Assessment Notes Other hammer toe(s) (acquired), right fo ot Patient Educated with: DIABETIC FOOT CARE INSTRUCTIONS.pdf (DIABETIC FOOT CARE INSTRUCTIONS.pdf) Pending Test Test Name Order Date [id number]-AJJKCZC NAIL, 6 OR MORE 09/01/2025 37986-NPJD SKIN LESIONS, 2 TO 4 09/01/20 25 Next Appt Details Follow Up: 3 Months, Reason: Provider Name:Julee Dickens , 01/02/2026 11:00:00 AM, [address] [place] [address], [phone], Procedure Notes * Category Sub-Category Detail Notes Debride Nail 6-10 Nail debridement Due to the cl inical pathology outlined in the exam findings, performance of this nail treatment is medically necessary as its management by an unskilled/untrained nonprofessional would put this patients foot and overall health at risk. Therefore, debridement to affected nail(s), as described in exam ( T1, T2, T3, T4, T5, T6, T8, T9, ), was performed exclusively by the physician of record to reduce/remove overall nail length, girth, thickness, subungual debris, and necrotic tissue, by manual and/or electrical means through the use of a nail nipper and/or dremel-type almond grinder, to a more viable healthy nail plate or bed tissue 6-10 nails in total. Silver nitrate was used for any petechial bleeding as necessary. Definitive antifungal treatment options, both pharmaceutical and surgical, have been reviewed and discussed with the patient. The patient solely prefers the use of intermittent/as needed professional debridement services for their nail condition and understands the need for additional periodic treatments to maintain effectiveness in symptomatic relief - 71221 Keratoma Treatment Parring or Cutting o f Benign Hyperkeratotic Lesion(s) (-56) 2-4 Lesions - Due to the at risk nature of the patients medical condition as documented in the exam findings, performance of this keratoderma treatment is medically necessary as its management by an unskilled/untrained nonprofessional would put this patients foot and overall health at risk. Therefore, the benign hyperkeratotic lesions, (__) in total, locations as stated and described in the exam ( dorsal TA,T7 ), were pared, and/or cut utilizing a sterile 15 blade, tissue nippers, and/or power dremel instrumentation by the physician of record - 39527 Progress Notes * Gina MCCULLOUGH MDOB:[birth year] (65 yo F)Acc No.[id number]:09/01/2025 Progress Note Patient: Gina WEBB Provider: Vipul Dickens DPM :1960 A ge:65 Y S ex:Female Date:09/01/2025 Address:[address] [place] [address], [address], [id number] Pcp:Yolanda Jack MD Subjective: * Chief Complaints: * P cp-08/18/25At Risk Footcare * HPI: A t Risk footcare: Pt States Last PCP Visit: D ate 1 [facility]- b/l wounds (skin substitutes- weekly) pt relates Osteomyelitis right presently on IV antibiotics. T oe pain: Location: B /L feet. Duration: s everal years. Course: w orse. Aggravated by: s hoes, any pressure. Treatments: c hange in shoes. * ROS: G eneral/Constitutional: Nausea d enies. V omiting d enies. H melissa Thirst d enies. L oss appetite d enies. C hills d enies. F atigue d enies.?Fever d enies. N ight Sweats d enies. U nexplained weight loss d enies. U nexplained weight gain d enies. H EENTM: Dentures d enies. D izziness d enies. G lasses/contacts a dmits. R etinopathy d enies. B lurred/double vision d enies. T MJ?denies. D ischarge/drainage d enies. I mplants d enies. S ore throat d enies. D ental implants d enies. H irvin of hearing d enies. D ifficulty chewing/swallowing/speaking d enies. N ose bleeds d enies. S ore mouth d enies. ? R espiratory: On Oxygen d enies. P neumonia/pleurisy d enies.?Bronchitis d enies. E mphysema d enies. C oughing d enies. C ough blood?denies. S hortness of breath d enies. W heezing d enies. C ardiovascular: Pacemaker d enies. M GIZZARD PULLER d enies. W PW d enies. C HF d enies. H eart attack d enies. S eptal defect d enies. R apid beat d enies. C hest pain d enies. A trial Fib. d enies. M urmur/Palpitations d enies. G astrointestinal: Hemorrhoids d enies. S tomach/Abdominal pain d enies. D ark blood stool d enies. I rritable bowel d enies. C onstipation d enies. D iarrhea d enies. H ematology: Swelling d enies. C lots d enies. V aricose Veins d enies. B ruising d enies. B leeding problem d enies. G enitourinary: Blood urine d enies. F requent/Painfu/urination/bladder control d enies. K idney stones d enies. I nfection (UTI) d enies. N ephropathy d enies. s ex trans dis (STD) d enies. P rostate d enies. M usculoskeletal: Hammertoes d enies. B unions d enies. B ack Pain d enies. M uscle Cramps/ Resting d enies. M uscle cramps / walking d enies.?Generalized aches and pains d enies. W eakness d enies. I nteg.: Peters d enies. S cars d enies. C orns/calluses?denies. I ngrown nails d enies. P ainful nails d enies. O pen Sores , admits. R ashes d enies. N eurologic: Difficulty sleeping d enies. B rain disorder d enies. N umbness a dmits. B alance trouble d enies. C onfusion d enies. F ainting/blackouts d enies. T ingling a dmits. T remors d enies. * Medical History: * Surgical History: s freddie stenosis surgery tonsillectomy 1971Hammertoe Repair w/K-Wire 2nd Left 08/23/2015Colonoscopy 04/03/2018[facility] R, HT 2nd R SE: Sag Saw & Kwire 11/18/2018Skin grafts for wounds on feet 04/14/25 * Hospitalization/Major Diagno stic Procedure: B lumbar fusion 04/14/2017[facility] [place]- [facility] Visit 3 times 10/18,, 11/2019Cellulitis 08/20/25Cellulitis 08/04 * Family History: M other: alive, foot problems,poor circulation, diagnosed with Unspecified essential hypertension, Unspecified cerebral artery occlusion with cerebral infarction, Family history of arthritis. Father: , diagnosed with Unspecified heart disease. P aternal Grand Mother: diagnosed with Diabetic - NIDDM. S iblings: diagnosed with Other malignant neoplasm of unspecified site, Diabetic - NIDDM, Unspecified essential hypertension, Unspecified heart disease. * Social History: T obacco Use: T obacco Use/Smoking A re you a: n onsmoker A dditional Findings: Tobacco Non-User C urrent non-smoker Tobacco use other than smoking A re you an other tobacco user? N o M iscellaneous: C affeine: yes, frequency:, 1-2 cups per day. Children: no, none. Exercise: yes, Chair excersizes. Marital status: . 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 D rug/Alcohol: A ENDY-C (Standard) D id you have a drink containing alcohol in the past year? N o P oints 0 I nterpretation N egative * Medications: T akingSpironolactone 25 MG Tablet 1 tablet Orally Acetaminophen Extra Strength 500 MG Tablet 2 tablets as needed Orally every 6 hrs Acidophilus Tablet Orally Aspir- Low CeleBREX 200 MG Capsule 1 capsule with [...] 1 tablet Orally Once a day vitamin Extra-Depth Diabetic Shoes with 3 Pair Custom heat-molded multi-density innersoles . . for 1 year . Dx:hammertoes with hx of ulcers Extra Depth Diabetic Shoes with 3 Pair Custom heat-molded multi-density innersoles for 1 year Dx: Mounjaro 5 MG/0.5ML Solution Auto- injector Subcutaneous Taking Spironolactone 25 MG Tablet 1 tablet [...] multi-density innersoles for 1 year Dx: Taking Mounjaro 5 MG/0.5ML Solution Auto-injector Subcutaneous Not-Taking/PRNoxyBUTYnin Orthopedic Extra Depth Shoes With Custom Heat Molded Multidensity Innersoles as directed Wear Daily Potassium Chloride 20 MEQ Packet Orally Once a day Iodosorb 0.9 % Gel as directed Externally as needed , Notes to Pharmacist: PRNOzempic , Notes to Pharmacist: .5 inject 1 [...] capsule Orally every 12 hrs Bactrim DS 800- 160 MG Tablet 1 tablet Orally Twice a day Medication List reviewed and reconciled with the patientNot-Taking/PRN oxyBUTYnin Not-Taking/PRN Orthopedic Extra Depth Shoes With Custom Heat Molded Multidensity Innersoles as directed Wear Daily Not-Taking/PRN Potassium Chloride 20 MEQ Packet Orally Once a day Not-Taking/PRN Iodosorb 0.9 % Gel as directed Externally as needed , Notes to Pharmacist: PRNNot-Taking/PRN Ozempic , Notes to Pharmacist: .5 inject 1 a monthNot-Taking/PRN metFORMIN HCl 500 MG Tablet 1 tablet with a meal Orally Once a day Not-Taking/PRN Crestor Not-Taking/PRN rOPINIRole HCl 2 MG Tablet 1 tablet Orally Once a day Not-Taking/PRN Atenolol 50 MG Tablet 1 tablet Orally twice daily Not-Taking/PRN Lasix 40 MG Tablet Orally BID Not- Taking/PRN Keflex 500 MG Capsule 1 capsule Orally every 12 hrs Not-Taking/PRN Ibuprofen 800 MG Tablet 1 tablet with food or milk as needed Orally Three times a day Not- Taking/PRN Ampicillin 500 MG Capsule 1 capsule 1 hour before or 2 hours after a meal Orally every 6 hrs Not-Taking/PRN Keflex 500 MG Capsule 1 capsule Orally every 12 hrs Not-Taking/PRN Bactrim DS 800-160 MG Tablet 1 tablet Orally Twice a day Medication List reviewed and reconciled with the patient * Allergies: A dhesive: rashLatex: rashyes[Allergies Verified] Objective: * Vitals: H t: 5ft1in, Wt:290, BMI:54.79, Shoe size: 9.5WWW, BP:120/70mm Hg, BS: not taken, Ht-cm: 154.94 cm, Wt-k.54 kg. * P ast Orders: Lab:HEMOGLOBIN A1C (GLYCOHEM OGLOBIN) * Collection Date 05/04/2025 03/10/2024 Collection Time 12:53 PM 03:09 PM Order Date 05/04/2025 11/13/2024 HEMOGLOBIN A1C % (HH) NR 5.5 * Examination: O phthalmology Referral: DIABETES EYE EXAM P rocedure Performed: Y es D ate of Exam Performed 1 F indings of Diabetic Eye Exam: n o retinopathy G eneral Examination: GENERAL APPEARANCE: R yazan a pleasant, alert, well nourished, well-developed, well hydrated individual, who demonstrates proper attention to hygiene/body habitus, and is in no acute distress, Pt serves as own historian for office visit today. ORIENTED: p erson, place, and time. FOOT EXAM: L ower Extremity Neurological Exam performed:?Yes V isual exam of foot performed: Y es D ate 1 S ensory testing performed: s ensations diminished S ensory and motor testing performed: s ensations diminished P edal pulse taking performed: 2 + Footwear Evaluation F ootwear Evaluation performed: Y es N eurological: SENSORY: Neurological exam demonstrates inability for patient to distinguish sharp/dull pin prick discrimination, reduced, light touch sensation, reduced, vibration sensation,reduced, proprioception identification, in a stocking fashion, B/L. Test with 5.07 [place] monofilament performed at plantar aspects of 5 varied sites per foot shows sensation absent in at least 2 locations, B/L. TINEL'S COMPRESSION: Negative, Saphenous nerve distribution, B/L. O rthopedic: FOOT MORPHOLOGY: ( -) Charcot collapse/destruction noted at [facility]. DIGITAL DEFORMITIES: D igital contracture, PIPJ, 2-5 B/L, incompl-reducible to push-up test, no over, nor underlapping, t here is e vidence of shoe producing skin irritation. FOOTWEAR EVALUATION: w orn, non-supportive, shoe gear properties exacerbate patients complaints in relation to their foot/toe deformity. D ermatologic: SKIN FINDINGS: D SD with emily bandage b/l legs to midfoot b/l, Skin exam reveals Keratotic lesion(s) located at, Dorsal, TA, T7. ULCER: D SD intact dorsal b/l feet. N ails: NAILS are: E longated, overgrown, dystrophic, lytic, greater than 3mm thick, discolored and friable with crumbly malodorous subungual debris, with dull to no pain on palpation due to neuropathy, TA, T1, T2, T3, T4, T5, T6, T7, T8, T9, . & #160; Assessment: * Assessment: 1. O ther hammer toe(s) (acquired), right foot - M20.41 (Primary) S pecify :Chronic problem, Worse (4), Rx Management (4) 2 . O ther hammer toe(s) (acquired), left foot - M20.42 S pecify :Chronic problem, Worse (4), Rx Management (4) 3 . T ype 2 diabetes mellitus with diabetic polyneuropathy - E11.42 4 . O nychomycosis - B35.1 5 . T oe osteomyelitis - M86.9 ? Plan: * Treatment: 2. T ype 2 diabetes mellitus with diabetic polyneuropathy P rocedure: 65418-AGRUBSA NAIL, 6 OR MORE P rocedure: 01232-UWQU SKIN LESIONS, 2 TO 4 * Procedures: D ebride Nail 6-10: Nail debridement D ue to the clinical pathology outlined in the exam findings, performance of this nail treatment is medically necessary as its management by an unskilled/untrained nonprofessional would put this patients foot and overall health at risk. Therefore, debridement to affected nail(s), as described in exam ( T 1, T2, T3, T4, T5, T6, T8, T9, ), was performed exclusively by the physician of record to reduce/remove overall nail length, girth, thickness, subungual debris, and necrotic tissue, by manual and/or electrical means through the use of a nail nipper and/or dremel-type almond grinder, to a more viable healthy nail plate or bed tissue 6-10 nails in total. Silver nitrate was used for any petechial bleeding as necessary. Definitive antifungal treatment options, both pharmaceutical and surgical, have been reviewed and discussed with the patient. The patient solely prefers the use of intermittent/as needed professional debridement services for their nail condition and understands the need for additional periodic treatments to maintain effectiveness in symptomatic relief - 18578. K eratoma Treatment: Parring or Cutting of Benign Hyperkeratotic Lesion(s) ( -56) 2-4 Lesions - Due to the at risk nature of the patients medical condition as documented in the exam findings, performance of this keratoderma treatment is medically necessary as its management by an unskilled/untrained nonprofessional would put this patients foot and overall health at risk. Therefore, the benign hyperkeratotic lesions, (__) in total, locations as stated and described in the exam ( dorsal TA,T7 ), were pared, and/or cut utilizing a sterile 15 blade, tissue nippers, and/or power dremel instrumentation by the physician of record - 71701. * Procedure Codes: 1 1056 TRIM SKIN LESIONS, 2 TO 4, Modifiers: XS 80444 DEBRIDE NAIL, 6 OR MORE, Modifiers: XS M1371 Mst rec gsa<7 * Preventive Medicine: Counseling: D iscussion: - 14: Office or other outpatient visit for the [...] have encouraged the patient to call the office. B ioMech.: I discussed the Pts foot biomechanics with them and how it relates to their problem. D igital Surgery: D igital surgery was discussed with the patient, including the risks of surgery(below), vs not having surgery (persistent pain, deformity, risk for skin ulceration/infection, loss of toe), the potential surg complications, the anesthesia, and the usual post-op course. No guarentees were given. We discussed the potential procedure complications including, but not limited to: pain, swelling, bleeding, scarring, numbness, infection, delayed/non healing, floppy/unstable/shorthened toe, recurrence, failure of the procedure, overcorrection leading to plantarflexed/downward positioned toe, recurrence, need for further surgery, as well as the possibility for loss of the toe itself. We discussed the use of local anesthesia, and the usual post-op course for healing. No guarentees were given. The patient verbally indicated a full understanding of the above conversation, and any other of their questions were answered to their satisfaction. Alternatives to the procedure were also discussed, including conservative care. I also discussed the usual post-operative course and gave no guarantees regarding outcome. P odiatric Counseling: Elio loaiza recent dx of osteomyelitis, Pt inquired as to hardware in the right foot from surgery I performed in 2018. We reviewed previous x-rays and Op-report, informed pt no hardware was utilized.. Germán buchanan Gear Counseling: Germán BUCHANAN Rx - The patient was counseled in great detail on their muscoloskeletal foot and toe deformities which coincided with the dermatological presentations visualized on exam. We discussed how their deformities put the integrity of their feet at risk for potential pedal complications which makes the accomidative diabetic shoes and cutomizable inserts medically necessary. We discussed the different shoe and insert treatment types and options, as well as the important advantages for adhering to regularly wearing these accomidative devices daily. The patient was made aware of the fact that a failure to abide by these recommedations may be deleterious to their foot health as they are able to prevent many pedal complications such as skin irritation, skin ulceration, infection, and even loss of toe/foot/leg/or life. Time was also spent with the patient dispensing and discussing proper diabetic footcare techniques including daily skin moisturization, daily foot inspection for any interruption in skin integrity including open lesions, or sign of infection such as redness/malodor/drainage/swelling. Also discussed and recommended were procedures regarding daily shoe inspection for the presence of internal foreign bodies as well as any visualized irregular shoe or insert wear. Patient questions re: shoes, inserts, and self foot inspections were answered to their satisfaction as the patient verbally confirmed a full understanding of the above information. A Rx for Extra Depth Orthopedic Shoes with 3 pair of custom heat-molded inserts was dispensed. * Follow Up: 3 Months * Images: * Sign off status: Completed true * Provider: Vipul Dickens DPM Date: Generated for Wilder ibarra/Cuong/Gabriella on: 03:57 PM EDT History and Physical Notes * HPI (History of Present Illness) Category Sub-Category Detail Notes Category Not es Toe pain Location: B/L feet Duration: several years Course: worse Aggravated by: shoes, any pressure Treatments: change in shoes At Risk footcare Pt States Last PCP Visit: Date: 08/18/2025 [facility]- b/l wounds (skin substitutes- weekly) pt relates Osteomyelitis right presently on IV antibiotics Examination Category Sub-Category Detail Notes Category Not es Neurological SENSORY: Neurological exa m demonstrates inability for patient to distinguish sharp/dull pin prick discrimination, reduced, light touch sensation, reduced, vibration sensation,reduced, proprioception identification, in a stocking fashion, B/L. Test with 5.07 [place] monofilament performed at plantar aspects of 5 varied sites per foot shows sensation absent in at least 2 locations, B/L TINEL'S COMPRESSION: Negative, Saphenous nerve distribution, B/L Dermatologic SKIN FINDINGS: DSD with emily ban dage b/l legs to midfoot b/l, Skin exam reveals Keratotic lesion(s) located at, Dorsal, TA, T7 ULCER: DSD intact dorsal b/ l feet Orthopedic FOOT MORPHOLOGY: (-) Charcot collapse/majo truction noted at [facility] FOOTWEAR EVALUATION: worn, non-supportiv e, shoe gear properties exacerbate patients complaints in relation to their foot/toe deformity DIGITAL DEFORMITIES: Digital contracture , PIPJ, 2-5 B/L, incompl-reducible to push-up test, no over, nor underlapping, there is evidence of shoe producing skin irritation General Examination GENERAL APPEARANCE: Reveals a pleasant, alert, well nourished, well-developed, well hydrated individual, who demonstrates proper attention to hygiene/body habitus, and is in no acute distress, Pt serves as own historian for office visit today FOOT EXAM: Lower Extremity Neurological Exa m performed:: Yes Visual exam of foot performed:: Yes Date: 09/01/2025 Sensory testing performed:: sensations d iminished Sensory and motor testing performed:: se nsations diminished Pedal pulse taking performed:: 2+ ORIENTED: person, place, and t rafael Footwear Evaluation Footwear Evaluation performe d:: Yes Ophthalmology Referral DIABETES EYE EXAM Procedure Perform ed:: Yes Date of Exam Performed: 09/09/2024 Findings of Diabetic Eye Exam:: no retin opathy Nails NAILS are: Elongated, overg rown, dystrophic, lytic, greater than 3mm thick, discolored and friable with crumbly malodorous subungual debris, with dull to no pain on palpation due to neuropathy, TA, T1, T2, T3, T4, T5, T6, T7, T8, T9,
[2025-09-05 12:38] LABS: MANUAL DIFF FLAG NO
[2025-09-05 12:44] LABS: Hematocrit 33.7 % (37.0-47.0); Hemoglobin 10.3 g/dl (12.0-16.0); Imm Gran Abs Auto 0.02 X10*3/uL (0.00-0.03); Imm Gran Pct Auto 0.3 % (0.0-0.4); Lymphocytes Absolute Auto 2.0 X10*3/uL (1.2-4.9); Mean Corpuscular HGB Conc 30.6 g/dl (31.0-35.0); Mean Corpuscular Hemoglobin 26.3 pg (27.0-33.0); Mean Corpuscular Volume 86.2 fL (80.0-98.0); NRBC Abs Auto 0.000 X10*3/uL (0.0-0.012); NRBC Pct Auto 0.0 /100WBC (0.0-0.2); Platelet Count 237 X10*3/uL (160-400); Red Blood Count 3.91 X10*6/uL (4.20-5.50); White Blood Count 7.8 X10*3/uL (4.8-10.8)
[2025-09-05 13:26] LABS: Alanine Aminotransferase 36 U/L (0-31); Albumin Level 3.8 g/dL (3.5-5.0); Alkaline Phosphatase 93 U/L (39-117); Anion Gap 12 (12-20); Aspartate Amino Transferase 35 U/L (5-31); Blood Urea Nitrogen 27 mg/dL (9-16); Calcium 8.6 mg/dL (8.4-10.2); Carbon Dioxide 27 mmol/L (22-29); Chloride 104 mmol/L (96-108); Estimated Glomerular Filt Rate > 60; Potassium 3.8 mmol/L (3.3-5.1); Sodium 139 mmol/L (135-145); Total Protein 6.8 g/dL (6.5-8.0)
--- OUTSIDE RECORDS SUMMARY | 2025-09-05 15:58 | XMS_ITS | Encounter Summary ---
Author Organization [facility] Address [address] [place] [address] Phone Care Team Providers Care Strip Winder Name Role Phone Yolanda Jack MD Primary Care Provider [phone] Encounter Details Date Type Department Care Team (Late st Contact Info) Description 04/07/2019 Procedure Pass [facility] [address] [place] [address] Social History Tobacco Use Types Packs/Day Years [...] on filedocumented in this encounter Care Teams Strip Winder Relationship Specialty Start Date End Date Yolanda Jack MD [address] [place] [address] PCP - General Internal Medicine 04/06/19 documented as of this encounter Additional Source Comments The information contained in this document represents components of the legal health record. It is not the complete legal health record.[facility]
--- OUTSIDE RECORDS SUMMARY | 2025-09-05 15:58 | XMS_ITS | Encounter Summary ---
Author Organization [facility] Address [address] [place] [address] Phone Care Team Providers Care Land Acquisition Manager Name Role Phone Yolanda Jack MD Primary Care Provider Encounter Details Date Type Department Care Team (Late st Contact Info) Description 04/07/2019 Procedure Pass [facility] [address] [place] [address] Social History Tobacco Use Types Packs/Day Years [...] on filedocumented in this encounter Care Teams Land Acquisition Manager Relationship Specialty Start Date End Date Yolanda Jack MD [address] [place] [address] PCP - General Internal Medicine 04/06/19 documented as of this encounter Additional Source Comments The information contained in this document represents components of the legal health record. It is not the complete legal health record.[facility]
--- OUTSIDE RECORDS SUMMARY | 2025-09-05 15:58 | XMS_ITS | Clinical Summary ---
Author Organization [facility] Address [address] [place] [address] [place] [address] Phone Care Team Providers Care Inspector Optical Instrument Name Role Phone Yolanda Jack MD Primary Care Provider [phone] Social History Tobacco Use Types Packs/Day Years [...] topic Medical Devices Not on file Insurance [place] [employer] [facility] POS EPO [place] [employer] [facility] POS EPO [facility] POS [facility]PO [facility] POS [facility]PO [facility] POS EPO [facility] POS EPO [facility] POS EPO [facility] POS EPO [facility] POS EPO Care Teams Inspector Optical Instrument Relationship Specialty Start Date End Date Yolanda Jack MD [address] [facility] [place] [id number] PCP - General Internal Medicine 04/06/19 Additional Source Comments The information contained in this document represents components of the legal health record. It is not the complete legal health record.[facility]
--- OUTSIDE RECORDS SUMMARY | 2025-09-05 15:58 | XMS_ITS | Patient Health Record ---
Author Organization [facility] Address [address] [facility] [address] [facility] [place] [address] Care Team Providers Care Clinical Rehabilitation Aide Name Role Phone Yolanda Jack MD Primary Care Provider Unavaila ble Black, Julee Unavailable [phone] Allergies Allergen (clinical drug ingredient) Drug/Non Drug Allergy documented on EMR Reaction Allergy Type Onset Date Status Adhesive rash Allergy Active Latex Latex rash Allergy Active Results Component Value Reference Range Notes HEMOGLOBIN A1C (GLYCOHEMOGLO BIN) Reviewed date:11/13/2024 03:10:33 PM Interpretation: Performing Lab: Notes/Report: HEMOGLOBIN A1C % (HH) 5.5 HEMOGLOBIN A1C (GLYCOHEMOGLO BIN) Reviewed date:09/01/2025 01:07:20 PM Interpretation: Performing Lab: Notes/Report: HEMOGLOBIN A1C % (HH) 5.5 Reason For Referral No Information Medications Medication SIG (Take, Route, Frequency, Duration) Notes Start Date End Date Status CeleBREX 200 MG 1 capsule with food Orally Twice a day Active Aspir-Low Active Orthopedic Extra Depth Shoes With Custom Heat Molded Multidensity Innersoles as directed Wear Daily; Duration: as needed 12/13/2020 Not-Taking oxyBUTYnin Not-Takin g Ozempic .5 inject 1 a month Not-Taking Extra Depth Orthopedic Shoes (1 Pair) with Customized Heat Molded Multidensity Innersoles (3 Pair) Dx: NIDDM/Polyneuropathy (E11.42), Hammertoe Foot Deformity (M20.41,M20.42), Preulcerative Skin Lesion(s) (L85.1); Duration: 365 days 09/01/2025 Active Iodosorb 0.9 % as directed Externally as needed PRN Not-Taking Crestor Not-Taking metFORMIN HCl 500 MG [...] Orally BID Not-Gustavo ing Rosuvastatin Calcium Active Carvedilol Active Fish Oil Active Furosemide 40mg Active hydrALAZINE HCl 50 MG 1 tablet with food Orally Twice Daily 3x daily Active Gabapentin 300 MG 3 capsules Orally Once a day Active Lyrica 150 MG Orally Twice a day Active Potassium Chloride 20 MEQ Orally Once a day Not-Taking Irbesartan 300 MG 1 tablet Orally Once a day Active Ibuprofen 800 MG 1 tablet with food or milk as needed Orally Three times a day; Duration: 30 days 11/11/2018 Not-Taking Terazosin HCl 10 MG Orally 2 po QD Active Acidophilus Orally Active PriLOSEC Active Bactrim DS 800-160 MG 1 tablet Orally Twice a day; Duration: 10 day(s) 11/27/2018 Not-Taking Vitamin D 1000 UNIT 1 tablet Orally Once a day Active Tylenol Arthritis Pain 650 mg 1 tablet twice daily Active Extra-Depth Diabetic Shoes with 3 Pair Custom heat-molded multi-density innersoles . for 1 year . Dx:hammertoes with hx of ulcers; Duration: . 04/27/2014 Active vitamin Active Mounjaro 5 MG/0.5ML Subcutaneous; Duration: 28 Days Active Extra Depth Diabetic Shoes with 3 Pair Custom heat-molded multi-density innersoles for 1 year Dx: 07/01/2024 Active Acetaminophen Extra Strength 500 MG 2 tablets as needed Orally every 6 hrs; Duration: 14 days 11/11/2018 Active Keflex 500 MG 1 capsule Orally every 12 hrs; Duration: 10 day(s) 11/20/2018 Not-Taking Spironolactone 25 MG 1 tablet Orally Active Ampicillin 500 MG 1 capsule 1 hour before or 2 hours after a meal Orally every 6 hrs; Duration: 10 day(s) 12/01/2018 Not-Taking Immunizations Vaccine Route Administration Date Status [...] Problem Acquired hammer toe of right foot (5863257225534271 ) Other hammer toe(s) (acquired), right foot (M20.41) Active confirmed Problem Acquired hammer toe of left foot (8236592550417626 ) Other hammer toe(s) (acquired), left foot (M20.42) Active confirmed Problem Polyneuropathy due to type 2 diabetes mellitus (525812822) Type 2 diabetes mellitus with diabetic polyneuropathy (E11.42) Active confirmed Problem Osteomyelitis (35851598) 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) Active confirmed Vital Signs Blood pressure diastolic 70 mm Hg 09/01/2025 Height 5ft1in in 09/01/2025 Blood pressure systolic 120 mm Hg 09/01/2025 Weight 290 lbs 09/01/2025 BMI 54.79 kg/m2 09/01/2025 Procedures Procedure Date Ordered Date Performed Result Body Sit e 70791-KUNB SKIN LESIONS, 2 TO 4 10/11/2024 N/A B4924-KWEJZLIN DYSTROPHIC NAILS ANY # 10/11/2024 N/A 69682-VVPFESZ NAIL, 6 OR MORE 05/30/2025 N/A 99913-WLZB SKIN LESIONS, 2 TO 4 05/30/2025 N/A 02285-KOYCEEG NAIL, 6 OR MORE 09/01/2025 N/A 55434-CNIL SKIN LESIONS, 2 TO 4 09/01/2025 N/A Encounters Encounter Location Date Provider Diagnosis [facility] [address] [address] 10/11/2024 Julee Dickens Type 2 diabetes mellitus with diabetic polyneuropathy E11.[address] [address] 05/30/2025 Julee Dickens Type 2 diabetes mellitus with diabetic polyneuropathy E11.42 and Onychomycosis B35.[address] [address] 09/01/2025 Julee Dickens Other hammer toe(s) (acquired), right foot M20.41 ; Other hammer toe(s) (acquired), left foot M20.42 ; Type 2 diabetes mellitus with diabetic polyneuropathy E11.42 ; Onychomycosis B35.1 and Toe osteomyelitis M86.[address] [address] 09/27/2024 Julee Dickens [address] [address] 01/05/2025 Julee Dickens [address] [address] 02/17/2025 Julee Dickens Assessments Encounter Date Diagnosis (ICD Code) Assessment Notes Treatment Notes Treatment Clinical Notes Section Notes 10/11/2024 Type 2 diabetes mellitus with diabetic polyneuropathy (ICD-10 - E11.42) 05/30/2025 Type 2 diabetes mellitus with diabetic polyneuropathy (ICD-10 - E11.42) 05/30/2025 Onychomycosis (ICD-10 - B35.1) 09/01/2025 Other hammer toe(s) (acquired), right foot (ICD-10 - M20.41) Patient Educated with: DIABETIC FOOT CARE INSTRUCTIONS. pdf (DIABETIC FOOT CARE INSTRUCTIONS. pdf) 09/01/2025 Other hammer toe(s) (acquired), left foot (ICD-10 - M20.42) 09/01/2025 Type 2 diabetes mellitus with diabetic polyneuropathy (ICD-10 - E11.42) 09/01/2025 Onychomycosis (ICD-10 - B35.1) 09/01/2025 Toe osteomyelitis (ICD-10 - M86.9) Plan Of Treatment Pending Test Test Name Order Date *Wound Culture 10/02/2015 *Wound Culture 10/28/2017 *Wound Culture 11/27/2018 *Wound Culture 12/17/2018 X ray : Foot, right 3V 12/14/2018 76892-RUWGOAI NAIL, 6 OR MORE 02/16/2018 48661-HRQVRWJ NAIL, 6 OR MORE 04/20/2018 55154-DZXRYYV NAIL, 6 OR MORE 06/29/2018 93520-YQTTTKA NAIL, 6 OR MORE 09/25/2017 58965-TVDEZTT NAIL, 6 OR MORE 12/22/2017 54086-IDOCDJR NAIL, 6 OR MORE 09/19/2016 19417-SNGPMAH NAIL, 6 OR MORE 10/09/2016 52667-SHRTUJK NAIL, 6 OR MORE 02/17/2017 43006-CIZDVMH NAIL, 6 OR MORE 06/19/2017 87352-ALRVCHX NAIL, 6 OR MORE 03/24/2019 35225-DLUSDPF NAIL, 6 OR MORE 07/13/2019 30273-EHEZCUM NAIL, 6 OR MORE 10/18/2019 38193-LJFLNPD NAIL, 6 OR MORE 01/31/2020 83818-KLMJRGG NAIL, 6 OR MORE 04/24/2020 93550-UTXSSPK NAIL, 6 OR MORE 07/27/2020 41581-UBYRVNH NAIL, 6 OR MORE 12/13/2020 66669-JSXTCEA NAIL, 6 OR MORE 03/12/2021 55068-HFIGDOK NAIL, 6 OR MORE 05/20/2016 34530-QVPRKJG NAIL, 6 OR MORE 12/04/2015 63760-YJLKASB NAIL, 6 OR MORE 02/14/2016 21904-FHVLALF NAIL, 6 OR MORE 05/08/2016 67139-EIOOGEU NAIL, 6 OR MORE 08/02/2015 83356-NWSFVIP NAIL, 6 OR MORE 08/07/2015 73851-FFJQBPS NAIL, 6 OR MORE 10/29/2013 53554-ZZSDHAG NAIL, 6 OR MORE 04/27/2014 39088-POQAPDP NAIL, 6 OR MORE 07/27/2014 62961-DXULKUC NAIL, 6 OR MORE 10/26/2014 91690-IHUVOXQ NAIL, 6 OR MORE 01/25/2015 86343-UHFFLMP NAIL, 6 OR MORE 01/13/2012 65675-RVLUUUL NAIL, 6 OR MORE 03/25/2012 57177-BMGBRAC NAIL, 6 OR MORE 06/24/2012 91079-KAGPSNC NAIL, 6 OR MORE 12/02/2012 60023-MPURYQG NAIL, 6 OR MORE 02/15/2013 75591-HKXPIML NAIL, 6 OR MORE 04/22/2013 65665-NZMUCGU NAIL, 6 OR MORE 05/30/2025 37331-DGVBMXP NAIL, 6 OR MORE 09/01/2025 15303-EPRMXGJ NAIL, 1-5 01/19/2014 93259-Bgsmjkxo Plate 01/25/2015 03991-Wpflilfn Plate 10/26/2014 96465-Wqflbqly Plate 07/27/2014 44089-Vvniniee Plate 08/07/2015 36503-Hezqgvnu Plate 08/02/2015 69988-Avhewxzs Plate 05/04/2015 47578-Bnflhckn Plate 10/24/2015 75099-Koudgcor Plate 05/20/2013 71176-Smptqzus Plate 06/23/2013 19970-Ilqtdoer Plate 03/31/2013 64676-Ebvhzgxh Plate 03/01/2013 01837-Jdhdybur Plate 06/24/2012 78940-Alhcbixv Plate 09/16/2012 68268-Tsxyfzln Plate 03/25/2012 16281-Cixtxbhs Plate 06/11/2021 72573-Litnuxbr Plate 12/13/2020 22733-Mzfllpme Plate 07/27/2020 59928-Bojtboqk Plate 10/18/2019 20597-Qmxdiryj Plate 01/31/2020 50483-Ofuovyia Plate Each Additional 19895-Cyvrraqm Plate Each Additional 72066-Ahxkbzhk Plate Each Additional 27074-Nijuecul Plate Each Additional 65651-Popijvnn Plate Each Additional 91961-XIR 09/23/2013 06569-GPB 10/15/2013 17149-EMP 01/16/2017 74131- Debride <25 sq cm 01/16/2017 52866- Debride <25 sq cm 01/31/2017 18004- Debride <25 sq cm 02/17/2017 59567- Debride <25 sq cm 09/25/2017 08628- Debride <25 sq cm 03/20/2017 13616- Debride <25 sq cm 10/09/2016 95672- Debride <25 sq cm 10/23/2016 49866- Debride <25 sq cm 11/28/2016 08109- Debride <25 sq cm 01/01/2017 10121- Debride <25 sq cm 09/19/2016 31256- Debride <25 sq cm 06/06/2016 86950- Debride <25 sq cm 08/09/2016 62295- Debride <25 sq cm 02/16/2018 16689- Debride <25 sq cm 10/28/2017 78344- Debride <25 sq cm 11/17/2017 91893- Debride <25 sq cm 12/22/2017 17418- Debride <25 sq cm 08/13/2018 28777- Debride <25 sq cm 09/03/2018 69628- Debride <25 sq cm 09/24/2018 04337- Debride <25 sq cm 10/08/2018 79245- Debride <25 sq cm 04/20/2018 27081- Debride <25 sq cm 02/18/2019 40941- Debride <25 sq cm 03/24/2019 39974- Debride <25 sq cm 01/14/2022 89245- Debride <25 sq cm 10/28/2022 41432- Debride <25 sq cm 02/13/2023 78876- Debride <25 sq cm 05/22/2023 39268- Debride <25 sq cm 06/23/2013 08945- Debride <25 sq cm 05/20/2013 29556- Debride <25 sq cm 03/01/2013 20654- Debride <25 sq cm 03/15/2013 33965- Debride <25 sq cm 03/31/2013 76564- Debride <25 sq cm 04/22/2013 31480- Debride <25 sq cm 02/15/2013 68414- Debride <25 sq cm 03/25/2012 25781- Debride <25 sq cm 01/13/2012 05057- Debride <25 sq cm 09/16/2012 50486- Debride <25 sq cm 12/02/2012 70762- Debride <25 sq cm 06/24/2012 18565- Debride <25 sq cm 07/27/2014 75469- Debride <25 sq cm 10/26/2014 26478- Debride <25 sq cm 01/25/2015 24364- Debride <25 sq cm 01/19/2014 93985- Debride <25 sq cm 10/28/2011 79515- Debride <25 sq cm 11/19/2013 12188- Debride <25 sq cm 05/04/2015 05351- Debride <25 sq cm 05/18/2015 45040- Debride <25 sq cm 06/02/2015 99435- Debride <25 sq cm 06/22/2015 38419-EMEWGPY SKIN/TISSUE 05/20/2016 23782-QPBRGMJ SKIN/TISSUE 05/08/2016 11976-ZXSGVWE SKIN/TISSUE 10/29/2013 01025-MFIQAWN SKIN/TISSUE 04/27/2014 33904-TYPLYKW SKIN/TISSUE 10/13/2012 22411-ZTGJSGO SKIN/TISSUE 10/30/2012 18353-HYPFBEF SKIN/TISSUE 09/17/2011 92624-AFRATMQ SKIN/TISSUE 10/15/2013 80828-LJBNKDA SKIN/TISSUE 01/18/2019 13881-JPJOASF SKIN/TISSUE 02/01/2019 84751-VQQYUXJ SKIN/TISSUE 07/23/2016 66539-WPEMYRH SKIN/TISSUE 01/31/2017 59314-KCDPGHH SKIN/TISSUE 03/11/2024 92867 I&D ABSCESS- SIMPLE,SINGLE 011 27428-SKOS SKIN LESIONS, OVER 4 05/22/20 23 49511-HNXX SKIN LESIONS, OVER 4 02/14/20 23 64875-BISQ SKIN LESIONS, 2 TO 4 10/28/20 22 19317-XPUD SKIN LESIONS, 2 TO 4 09/24/20 21 64169-DPKC SKIN LESIONS, 2 TO 4 04/22/20 22 26849-LDMA SKIN LESIONS, 2 TO 4 07/22/20 22 11269-ATRL SKIN LESIONS, 2 TO 4 06/11/20 21 51210-RRJX SKIN LESIONS, 2 TO 4 07/01/20 24 01661-TXTA SKIN LESIONS, 2 TO 4 10/11/20 24 70952-JYLU SKIN LESIONS, 2 TO 4 09/01/20 23 33174-JDSU SKIN LESIONS, 2 TO 4 12/11/19 24 82208-QAQP SKIN LESIONS, 2 TO 4 03/11/20 24 49087-JMAC SKIN LESIONS, 2 TO 4 05/30/20 25 46477-BCVN SKIN LESIONS, 2 TO 4 09/01/20 25 31175-RCII NAIL(S) 07/22/2022 76581-WSTM NAIL(S) 04/22/2022 05954-HYQX NAIL(S) 09/24/2021 86645-NXRW NAIL(S) 01/14/2022 37956-DCRV NAIL(S) 10/28/2022 A9824-HSAWUUDA DYSTROPHIC NAILS ANY # L9564-SLRLSWOI DYSTROPHIC NAILS ANY # F3738-UMUMXLAF DYSTROPHIC NAILS ANY # I2656-OYCWQHQN DYSTROPHIC NAILS ANY # M6834-ZZEVAGBM DYSTROPHIC NAILS ANY # X6545-UQJAGICN DYSTROPHIC NAILS ANY # T1961-NQMMBCLH DYSTROPHIC NAILS ANY # T8976-WDFGJGRF DYSTROPHIC NAILS ANY # 72049 - Tenotomy, open flexor 01/16/2018 Next Appt Details Provider Name:Julee Dickens , 01/02/2026 11:00:00 AM, [address] [facility] [place], [place], [address], Insurance Providers Payer Name Payer Address Payer Phone Subscriber Number Group Number Insured Name Patient Relationship to Insured Coverage Start Date Coverage End Date Medicare National [employer] [address] [facility] [place] [address] [id number] Gina Milan Self - patient is the insured 3 Claims [facility] Office of Community Care [address] [address] [place] [address] [phone] [id number] Gina Milan Self - patient is the [...] on feet 04/14/25 Hospitalization History Reason Date(Month/Year) Cellulitis 08/04 Cellulitis 08/20/25 [place] [facility]18[facility] Right [facility] Ul[facility] 08/06/18 [facility] lumbar fusion 04/14/2017
== END 2025-09-05 12:33 | disposition home or self-care (01) ==
LOC: HO.HVNA 12:32
PROVIDERS: Visit Provider Internal Medicine
DX: A41.81 Sepsis due to Enterococcus (principal); L03.115 Cellulitis of right lower limb; M86.171 Other acute osteomyelitis, right ankle and foot
CPT/HCPCS: 36415; 80048; 80076; 85025; 85652; 86140

== ENCOUNTER 2025-09-14 11:11 | Outpatient (AMB) | payer MEDICARE, OTHER, SELFPAY ==
--- NOTE | 2025-09-14 11:14 | MHC.OFFVIS ---
Intake Visit Reasons: OV-Left shoulder pain follow up Intake Note: Gina a 65 year old female who presents today for a follow up with complaints of left shoulder pain, last injection on 08/25/24. Patient reports that she is unsure if the last injeciton helped. States her discomfort has been present for a while. At times she feels her shoulder maligns and has to relax for shoulder to go back into place. No recent injury. Allergies Adhesive Bandages Allergy (Unknown, Verified 09/14/25 11:25) rash adhesive tape (TAPE,ADHESIVE) Allergy (Unknown, Verified 09/14/25 11:25) RASH amlodipine Allergy (Unknown, Verified 09/14/25 11:25) edema atenolol Allergy (Unknown, Verified 09/14/25 11:) Bradycardia bisoprolol (From Zebeta) Allergy (Unknown, Verified 09/14/25 11:25) Diarrhea labetalol Allergy (Unknown, Verified 09/14/25 11:25) n/a latex (LATEX) Allergy (Unknown, Verified 09/14/25 11:25) RASH metformin Adverse Reaction (Intermediate, Verified 09/14/25 11:25) Diarrhea semaglutide (From Ozempic) Adverse Reaction (Intermediate, Verified 09/14/25 11:25) Diarrhea vicodin Allergy (Unknown, Uncoded 09/14/25 11:25) heart palpitation actos Adverse Reaction (Intermediate, Uncoded 09/14/25 11:25) Abdominal Pain Medication List - Last Reconciled 09/14/25 by Elias Fields PA-C acetaminophen ER 1,300 mg PO Q12H aspirin 81 mg PO DAILY carvedilol 6.25 mg PO BID catheter (Bardex All-Silicone Duncan Catheter) As directed celecoxib 200 mg PO BID cholecalciferol (vitamin D3) 25 mcg PO DAILY ciprofloxacin HCl 500 mg PO Q12H furosemide 40 mg PO DAILY gabapentin 900 mg (3 x 300 mg) PO BEDTIME hydralazine 50 mg PO BID irbesartan 300 mg PO DAILY Lactobacillus acidophilus (Acidophilus capsule) 1,000 mmu cells PO DAILY magnesium oxide 500 mg PO DAILY Mounjaro (tirzepatide) 10 mg (0.5 mL) subcut QWEEK NS multivitamin 1 tab PO DAILY nystatin (Nystop) 1 appl topical BID PRN omega 7-hpx-vmw-fish oil 1,000 (120-180) mg (Fish Oil) 1 cap PO BID omeprazole 20 mg PO DAILY@0630 pregabalin 150 mg PO BID rosuvastatin 10 mg PO BEDTIME spironolactone 25 mg PO DAILY terazosin 20 mg (2 x 10 mg) PO DAILY HPI HPI OV-Left shoulder pain follow up: Details: 65-year-old female returns to the office today for a follow-up left shoulder pain. She has had injections by me in the past which were somewhat helpful. She is wheelchair-bound and notices when she is using her manual wheelchair she does have increased discomfort in the left shoulder from pushing the wheelchair. She states the pain is along the anterior portion of the shoulder. She was recently treated for osteomyelitis of the foot with IV antibiotics for 5 weeks. [facility] Medical History (Updated 08/18/25 @ 15:23 by Yolanda Jack MD) Bacteremia due to Pseudomonas Chronic foot ulcer Heart failure with preserved ejection fraction Scoliosis Arthritis Diabetes GERD (gastroesophageal reflux disease) Numbness Elevated cholesterol Bowel incontinence Chronic indwelling Duncan catheter Osteomyelitis Bunion of right foot TONI (obstructive sleep apnea) Hyperglycemia Morbid obesity Foot callus Neuropathy Edema Urinary retention Plantar fasciitis Obesity Osteoarthritis Spinal stenosis Hypertension Surgical History Hx of skin graft (04/14/25) History of esophagogastroduodenoscopy (EGD) Hx of ligation of vein History of carpal tunnel surgery H/O foot surgery History of tonsillectomy H/O colonoscopy History of lumbar surgery Family History Father History of heart attack Mother HTN (hypertension) Stroke Brother Stomach cancer Brother History of heart attack HTN (hypertension) Diabetes mellitus Lung cancer Brother Bladder cancer Heart attack Social History Household Members: None Housing: House Are you a primary veterinarian laboratory animal care to a significant other at home: No Do you presently have visiting nurse or other home services: Yes Alcohol intake: never Patient Tobacco Use Status: Never used Tobacco e-Cigarette/Vaping Use: Never Used Second Hand Smoke Exposure: No service: No Current occupational status: disabled Current occupation: right hand dominant Cognitive needs: No Hearing needs: No Vision needs: Yes Review of Systems Const All systems reviewed & are unremarkable except as noted in HPI and below Physical Exam Extrem Other: Left shoulder: Normal to inspection. Tenderness over the bicipital groove and along the deltoid region of the shoulder. Forward flexion to 175, external rotation to 90, internal rotation to S1. 5/5 RTC strength. Negative Vincent and cross body abduction. NVI. Office Procedures AMB Joint Injection/Aspiration Joint Injection/Aspiration Primary Site: left shoulder Prep: site was prepped using aseptic technique, ethochloride spray was applied and injection warnings given Injected: 40 mg of, with 3 mL of, 1% plain lidocaine, 0.25% bupivacaine, in the subcromial space and decadron Approach Used: posterolateral Procedure: The patient tolerated the procedure well and there was some relief with the local anesthesia Coding 58520 - Glenohumeral/Tronchanteric Bursa/Intraarticular Procedure code (CPT) selection complete Assessment & Plan Assessment & Plan (1) Left shoulder tendonitis: Code(s): M77.8 - Other enthesopathies, not elsewhere classified Category: Medical Plan: We discussed options today, which include steroid injection. The patient did consent to move forward with the injection, which was tolerated well.? I recommended rest, ice and elevation and OTC antiinflammatories prn for discomfort. If symptoms persist over the next 6-8 weeks, they will contact our office, otherwise, prn Orders: Orders XR shoulder LT min 2V 09/14/25 M25.512 - Pain in left shoulder Coding Level of Care Code Est Pt Level 3 (75087) Complex EM visit Add On G2211 Diagnoses Left shoulder tendonitis M77.8 CPT Codes Coding - Joint 7: 43732 - Glenohumeral/Tronchanteric Bursa/Intraarticular ([id number])
== END 2025-09-14 12:14 | disposition home or self-care (01) ==
LOC: HO.HOS 11:11
PROVIDERS: PCP Internal Medicine; Visit Provider Physician Assistant
DX: M77.8 Other enthesopathies, not elsewhere classified (principal)
CPT/HCPCS: 20610; 99213; G2211

== ENCOUNTER 2025-09-14 11:11 | Outpatient (REF) | payer MEDICARE, OTHER, SELFPAY ==
--- OUTSIDE RECORDS SUMMARY | 2025-01-10 04:15 | XMS_ITS ---
Author Organization [facility] Address [address] [facility] [place] [address] Care Team Providers Care Amalgamator Name Role Phone Yolanda Jack MD Primary Care Provider Unavaila ble Enoc Dickensmie Unavailable [phone] Allergies Allergen (clinical drug ingredient) Drug/Non Drug [...] Active Encounters Encounter Location Date Provider Diagnosis [facility] [address] [address] 01/10/2025 Julee Maninder Plan Of Treatment Next Appt Details Provider Name:Julee A Maninder , 01/02/2026 11:00:00 AM, [address] [place] [address], [address], Progress Notes * Gina MCCULLOUGH MDOB:[birth year] (65 yo F)Acc No.[id number]:01/10/2025 Progress Note Patient: Gina WEBB Provider: Vipul Dickens DPM :1960 A ge:64 Y S ex:Female Date:01/10/2025 Address:[facility] [address] , [address], [place] Pcp:Yolanda Jack MD Subjective: * Chief Complaints: [...] 0 01/10/2025 Generated for Wilder ibarra/Cuong/Gabriella on: 11/14/2024 02:22 PM EST
--- OUTSIDE RECORDS SUMMARY | 2025-02-21 10:15 | XMS_ITS ---
Author Organization [facility] Address [address] [place] [address] Care Team Providers Care Potline Monitor Name Role Phone Yolanda Jack MD Primary Care Provider Unavaila apolinar ManinderJulee Unavailable [phone] Encounters Encounter Location Date Provider Diagnosis [address] [address] 02/21/2025 Julee Maninder Plan Of Treatment Next Appt Details Provider Name:Julee Dickens , 01/02/2026 11:00:00 AM, [address] [place] [address], [phone], Progress Notes * Gina MCCULLOUGH MDOB:[birth year] (65 yo F)Acc No.[id number]:02/21/2025 Progress Note Patient: Nic Gina BARBOSA Provider: Vipul Dickens DPM :1960 A ge:64 Y S ex:Female Date:02/21/2025 Address:[address], [address], [id number] Pcp:Yolanda Jack MD Subjective: * Chief Complaints: * * Medical History: Objective: * Vitals: Assessment: Plan: * Treatment: * Images: * The named appointment provid er may or may not be the originator of this progress note, and it is not deemed complete until electronically signed by the appointment provider. Sign off status: Pending * Provider: Vipul Dickens DPM Date: 0 02/21/2025 Generated for Wilder ibarra/Cuong/Gabriella on: 1 11/14/2024 02:22 PM EST
--- NOTE | ~2025-09-14 | XR_ITS ---
EXAMINATION: XR SHOULDER, LEFT CLINICAL INFORMATION: M25.512 - Pain in left shoulder COMPARISON: June 20, 2023 TECHNIQUE: AP and Y-view projections of the left shoulder. FINDINGS: No acute cortical disruption or malalignment. Degenerative changes in the glenohumeral joint and acromioclavicular joint with joint space narrowing at the acromiohumeral joint. No lytic or blastic lesions. XR/XR shoulder LT min 2V IMPRESSION: Moderate to severe degenerative changes. Electronically signed by: Delio Anand MD 09/14/2025 12:08 PM CALOS SCHROEDER
--- OUTSIDE RECORDS SUMMARY | 2025-09-14 14:23 | XMS_ITS | Encounter Summary ---
Author Organization [facility] Address [address] [place] [address] Phone Care Team Providers Care Strawhat Inspector And Packer Name Role Phone Yolanda Jack MD Primary Care Provider [phone] Encounter Details Date Type Department Care Team (Late st Contact Info) Description 04/07/2019 Procedure Pass [facility] [address] [place] [address] Social History Tobacco Use Types Packs/Day Years [...] on filedocumented in this encounter Care Teams Strawhat Inspector And Packer Relationship Specialty Start Date End Date Yolanda Jack MD [address] [place] [address] PCP - General Internal Medicine 04/06/19 documented as of this encounter Additional Source Comments The information contained in this document represents components of the legal health record. It is not the complete legal health record.[facility]
--- OUTSIDE RECORDS SUMMARY | 2025-09-14 14:23 | XMS_ITS | Clinical Summary ---
Author Organization [facility] Address [address] [place] [address] [place] [address] Phone Care Team Providers Care E Commerce Director Name Role Phone Yolanda Jack MD Primary Care Provider [phone] Social History Tobacco Use Types Packs/Day Years [...] topic Medical Devices Not on file Insurance [employer] [facility] POS EPO [employer] [facility] POS EPO [facility] POS EPO [facility] POS EPO [facility] POS EPO [facility] POS EPO Care Teams E Commerce Director Relationship Specialty Start Date End Date Yolanda Jack MD [address] [facility] [place] [id number] PCP - General Internal Medicine 04/06/19 Additional Source Comments The information contained in this document represents components of the legal health record. It is not the complete legal health record.[facility]
--- OUTSIDE RECORDS SUMMARY | 2025-09-14 14:23 | XMS_ITS | Encounter Summary ---
Author Organization [facility] Address [address] [place] [address] Phone Care Team Providers Care Printer Apprentice Name Role Phone Yolanda Jack MD Primary Care Provider [phone] Encounter Details Date Type Department Care Team (Late st Contact Info) Description 04/07/2019 Procedure [facility] [address] [place] [address] Social History Tobacco Use Types Packs/Day Years [...] on filedocumented in this encounter Care Teams Printer Apprentice Relationship Specialty Start Date End Date Yolanda Jack MD [address] [place] [address] PCP - General Internal Medicine 04/06/19 documented as of this encounter Additional Source Comments The information contained in this document represents components of the legal health record. It is not the complete legal health record.[facility]
--- OUTSIDE RECORDS SUMMARY | 2025-09-14 14:23 | XMS_ITS | Patient Health Record ---
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 Name Role Phone Yolanda Jack MD Primary Care Provider Unavaila ble Black, Julee Unavailable [phone] Allergies Allergen (clinical drug ingredient) Drug/Non Drug [...] Problem Acquired hammer toe of right foot ([id number] ) Other hammer toe(s) (acquired), right foot (M20.41) Active confirmed Problem Acquired hammer toe of left foot (9834409705963210 ) Other hammer toe(s) (acquired), left foot (M20.42) Active confirmed Problem Polyneuropathy due to type 2 diabetes mellitus (718718985) Type 2 diabetes mellitus with diabetic polyneuropathy (E11.42) Active confirmed Problem Osteomyelitis (74807491) 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) Active confirmed Vital Signs Blood pressure diastolic 70 mm Hg 09/01/2025 Height 5ft1in in 09/01/2025 Blood pressure systolic 120 mm Hg 09/01/2025 Weight 290 lbs 09/01/2025 BMI 54.79 kg/m2 09/01/2025 Procedures Procedure Date Ordered Date Performed Result Body Sit e 28810-RCQP SKIN LESIONS, 2 TO 4 10/11/2024 N/A W7178-GPWAXRVB DYSTROPHIC NAILS ANY # 10/11/2024 N/A 32843-LIFQYRH NAIL, 6 OR MORE 05/30/2025 N/A 58824-KZHH SKIN LESIONS, 2 TO 4 05/30/2025 N/A 57391-LRWVMPX NAIL, 6 OR MORE 09/01/2025 N/A 60458-MRAN SKIN LESIONS, 2 TO 4 09/01/2025 N/A Encounters Encounter Location Date Provider Diagnosis [facility] [address] [address] 10/11/2024 Julee Dickens Type 2 diabetes mellitus with diabetic polyneuropathy E11.[address] [address] 05/30/2025 Julee Dickens Type 2 diabetes mellitus with diabetic polyneuropathy E11.42 and Onychomycosis B35.[address] [address] 09/01/2025 Julee Dickens Other hammer toe(s) (acquired), right foot M20.41 ; Other hammer toe(s) (acquired), left foot M20.42 ; Type 2 diabetes mellitus with diabetic polyneuropathy E11.42 ; Onychomycosis B35.1 and Toe osteomyelitis M86.[address] [address] 09/27/2024 Julee Dickens [address] [address] 01/05/2025 Julee Dickens [address] [address] 02/17/2025 Julee Dickens Assessments Encounter Date Diagnosis [...] X ray : Foot, right 3V 12/14/2018 54282-NAKTFOR NAIL, 6 OR MORE 02/16/2018 42179-MCKITKG NAIL, 6 OR MORE 04/20/2018 45480-JOKCSAC NAIL, 6 OR MORE 06/29/2018 41176-OCQTUUW NAIL, 6 OR MORE 09/25/2017 25627-HPYYLCS NAIL, 6 OR MORE 12/22/2017 32277-ZUSZETS NAIL, 6 OR MORE 09/19/2016 22443-CRRRTIP NAIL, 6 OR MORE 10/09/2016 69613-ODQDUPJ NAIL, 6 OR MORE 02/17/2017 57284-EJATGVX NAIL, 6 OR MORE 06/19/2017 62994-WEMPFUM NAIL, 6 OR MORE 03/24/2019 80868-FQQOQWH NAIL, 6 OR MORE 07/13/2019 94028-HTZDTTS NAIL, 6 OR MORE 10/18/2019 20958-WAIEBCY NAIL, 6 OR MORE 01/31/2020 17419-XDRVVYK NAIL, 6 OR MORE 04/24/2020 30369-YRTVHNL NAIL, 6 OR MORE 07/27/2020 96932-BBUZDRM NAIL, 6 OR MORE 12/13/2020 55279-CVERZAV NAIL, 6 OR MORE 03/12/2021 98541-CGMPYOF NAIL, 6 OR MORE 05/20/2016 94890-XUSKMGZ NAIL, 6 OR MORE 12/04/2015 75745-MDMHTKH NAIL, 6 OR MORE 02/14/2016 59192-JGNOPVI NAIL, 6 OR MORE 05/08/2016 94612-VGCGVGZ NAIL, 6 OR MORE 08/02/2015 93597-HXTTJIB NAIL, 6 OR MORE 08/07/2015 72302-KMDZFHA NAIL, 6 OR MORE 10/29/2013 77741-PPCCWRH NAIL, 6 OR MORE 04/27/2014 78165-YEDVMDL NAIL, 6 OR MORE 07/27/2014 90184-SWSPVFJ NAIL, 6 OR MORE 10/26/2014 09722-BDRGFAU NAIL, 6 OR MORE 01/25/2015 50972-VCJOPRQ NAIL, 6 OR MORE 01/13/2012 50564-ADZCJEA NAIL, 6 OR MORE 03/25/2012 62649-SPEVUNG NAIL, 6 OR MORE 06/24/2012 19055-NCMHLIO NAIL, 6 OR MORE 12/02/2012 07571-JWQZRGO NAIL, 6 OR MORE 02/15/2013 79471-SRRRPLM NAIL, 6 OR MORE 04/22/2013 11672-JJJMGTF NAIL, 6 OR MORE 05/30/2025 94313-VZCUPXQ NAIL, 6 OR MORE 09/01/2025 18406-ZTAXQIK NAIL, 1-5 01/19/2014 35235-Fveqyfll Plate 01/25/2015 36649-Noxcmiqm Plate 10/26/2014 65494-Kdpgxntj Plate 07/27/2014 45330-Rhjaxdve Plate 08/07/2015 28547-Sxziaxnr Plate 08/02/2015 98186-Icgodidc Plate 05/04/2015 82731-Gcrovtdx Plate 10/24/2015 68971-Kfdgewns Plate 05/20/2013 63006-Lyfhaqda Plate 06/23/2013 71497-Jvtoayly Plate 03/31/2013 11937-Tizepvft Plate 03/01/2013 03762-Vxqarplr Plate 06/24/2012 69328-Qrhlycna Plate 09/16/2012 70502-Pyjsljnd Plate 03/25/2012 18193-Qtfqdnjn Plate 06/11/2021 68979-Musnizfm Plate 12/13/2020 05819-Yskmgbdt Plate 07/27/2020 07773-Wqmyfaik Plate 10/18/2019 07862-Oexjumjk Plate 01/31/2020 52915-Rflunhtm Plate Each Additional 04543-Svygyuba Plate Each Additional 51451-Eitrjans Plate Each Additional 35101-Mlbxlejc Plate Each Additional 62875-Heeohgif Plate Each Additional 57119-QEL 09/23/2013 39230-BYX 10/15/2013 76064-IJI 01/16/2017 47622- Debride <25 sq cm 01/16/2017 50531- Debride <25 sq cm 01/31/2017 98715- Debride <25 sq cm 02/17/2017 48045- Debride <25 sq cm 09/25/2017 65067- Debride <25 sq cm 03/20/2017 37380- Debride <25 sq cm 10/09/2016 68999- Debride <25 sq cm 10/23/2016 22489- Debride <25 sq cm 11/28/2016 04251- Debride <25 sq cm 01/01/2017 64179- Debride <25 sq cm 09/19/2016 70325- Debride <25 sq cm 06/06/2016 88414- Debride <25 sq cm 08/09/2016 33236- Debride <25 sq cm 02/16/2018 37174- Debride <25 sq cm 10/28/2017 31277- Debride <25 sq cm 11/17/2017 94762- Debride <25 sq cm 12/22/2017 81320- Debride <25 sq cm 08/13/2018 15914- Debride <25 sq cm 09/03/2018 77894- Debride <25 sq cm 09/24/2018 89204- Debride <25 sq cm 10/08/2018 53951- Debride <25 sq cm 04/20/2018 31052- Debride <25 sq cm 02/18/2019 77972- Debride <25 sq cm 03/24/2019 75648- Debride <25 sq cm 01/14/2022 28970- Debride <25 sq cm 10/28/2022 33336- Debride <25 sq cm 02/13/2023 09322- Debride <25 sq cm 05/22/2023 73930- Debride <25 sq cm 06/23/2013 66076- Debride <25 sq cm 05/20/2013 47782- Debride <25 sq cm 03/01/2013 09138- Debride <25 sq cm 03/15/2013 68760- Debride <25 sq cm 03/31/2013 06115- Debride <25 sq cm 04/22/2013 69081- Debride <25 sq cm 02/15/2013 52076- Debride <25 sq cm 03/25/2012 62581- Debride <25 sq cm 01/13/2012 88404- Debride <25 sq cm 09/16/2012 36276- Debride <25 sq cm 12/02/2012 97048- Debride <25 sq cm 06/24/2012 25358- Debride <25 sq cm 07/27/2014 78194- Debride <25 sq cm 10/26/2014 88093- Debride <25 sq cm 01/25/2015 13125- Debride <25 sq cm 01/19/2014 65493- Debride <25 sq cm 10/28/2011 16853- Debride <25 sq cm 11/19/2013 55157- Debride <25 sq cm 05/04/2015 14272- Debride <25 sq cm 05/18/2015 42751- Debride <25 sq cm 06/02/2015 37109- Debride <25 sq cm 06/22/2015 00531-VBIQAKA SKIN/TISSUE 05/20/2016 40799-VSIERVZ SKIN/TISSUE 05/08/2016 13957-JIFDITY SKIN/TISSUE 10/29/2013 56838-ZBIYAGN SKIN/TISSUE 04/27/2014 86475-HFPVGXW SKIN/TISSUE 10/13/2012 77104-WMWFBMR SKIN/TISSUE 10/30/2012 02359-MDATHZL SKIN/TISSUE 09/17/2011 05735-HSHNMGH SKIN/TISSUE 10/15/2013 83497-ZBDLGKN SKIN/TISSUE 01/18/2019 72764-BLDYRGF SKIN/TISSUE 02/01/2019 85425-QYWPNCL SKIN/TISSUE 07/23/2016 80239-MUGOYFG SKIN/TISSUE 01/31/2017 54036-KQXEDJS SKIN/TISSUE 03/11/2024 61320 I&D ABSCESS- SIMPLE,SINGLE 011 65296-TYLR SKIN LESIONS, OVER 4 05/22/20 23 55788-PYHS SKIN LESIONS, OVER 4 02/14/20 23 48340-XRGT SKIN LESIONS, 2 TO 4 10/28/20 22 06018-KTZH SKIN LESIONS, 2 TO 4 09/24/20 21 25081-DPIP SKIN LESIONS, 2 TO 4 04/22/20 22 56081-XMGN SKIN LESIONS, 2 TO 4 07/22/20 22 71265-TZFD SKIN LESIONS, 2 TO 4 06/11/20 21 04894-RGQP SKIN LESIONS, 2 TO 4 07/01/20 24 40127-YDOU SKIN LESIONS, 2 TO 4 10/11/20 24 73163-SHSH SKIN LESIONS, 2 TO 4 09/01/20 23 41367-OBZJ SKIN LESIONS, 2 TO 4 12/11/19 24 20748-REXH SKIN LESIONS, 2 TO 4 03/11/20 24 28449-XEBS SKIN LESIONS, 2 TO 4 05/30/20 25 54227-ASJJ SKIN LESIONS, 2 TO 4 09/01/20 25 18406-EBYG NAIL(S) 07/22/2022 54794-JKLH NAIL(S) 04/22/2022 71969-GHQD NAIL(S) 09/24/2021 96256-RCXG NAIL(S) 01/14/2022 27788-IZHT NAIL(S) 10/28/2022 G7076-JBRAYXUY DYSTROPHIC NAILS ANY # Q0971-TVLPAGRA DYSTROPHIC NAILS ANY # H2915-FNUXSYQI DYSTROPHIC NAILS ANY # K2038-KYTQKORS DYSTROPHIC NAILS ANY # R9019-LFFVFQQN DYSTROPHIC NAILS ANY # W6564-NWNDMIYH DYSTROPHIC NAILS ANY # T5544-GKYLTYOW DYSTROPHIC NAILS ANY # W5779-OZKJGENL DYSTROPHIC NAILS ANY # 05698 - Tenotomy, open flexor 01/16/2018 Next Appt Details Provider Name:Julee Dickens , 01/02/2026 11:00:00 AM, [address] [facility], [place], [address], Insurance Providers Payer Name Payer Address Payer Phone Subscriber Number Group Number Insured Name Patient Relationship to Insured Coverage Start Date Coverage End Date Medicare National Govt Svcs Inc [address] [facility] [place] [address] [id number] Gina Milan Self - patient is the insured 3 Claims [facility] Office of Community Care [address] [address] [place] [address] [id number] Gina Milan Self - patient is the [...] Neuropathy G62.9 Other hammer toe(s) (acquired), left irgo t M20.42 Surgical History Surgery Date(Month/Year) spinal stenosis surgery tonsillectomy 1971 Hammertoe Repair w/K-Wire 2nd Left 08/23 Colonoscopy 04/03/2018 Kyara Hairston, LIV 2nd R SE: [facility] 11/18/2018 Skin grafts for wounds on feet 04/14/25 Hospitalization History Reason Date(Month/Year) Cellulitis 08/04 Cellulitis 08/20/25 [place] [facility]18[facility] 08[facility]06[facility]18 [facility] lumbar fusion 04/14/2017
== END 2025-09-14 11:12 | disposition home or self-care (01) ==
LOC: HO.HOSX 11:11
PROVIDERS: PCP Internal Medicine; Visit Provider Physician Assistant
DX: M77.8 Other enthesopathies, not elsewhere classified (principal); Z79.899 Other long term (current) drug therapy; Z79.82 Long term (current) use of aspirin
CPT/HCPCS: 20610; 73030; 99212; J0665; J1100; J2003

== ENCOUNTER → 2025-09-14 11:47 | Outpatient (BNV) | payer MEDICARE, OTHER, SELFPAY | PROVIDERS: PCP Internal Medicine; Visit Provider Radiology Diagnostic Radiology | DX: M19.012 Primary osteoarthritis, left shoulder (principal) | CPT/HCPCS: 73030 ==

== ENCOUNTER 2025-10-27 12:55 | Outpatient (REF) | payer MEDICARE, OTHER, SELFPAY ==
--- OUTSIDE RECORDS SUMMARY | 2025-01-10 04:15 | XMS_ITS ---
Author Organization [facility] Address [address] [facility] [place] [address] Care Team Providers Care Certified Juvenile Probation Officer Name Role Phone Yolanda Jack MD Primary Care Provider Unavaila apolinar Enoc Dickensmie Unavailable [phone] Allergies Allergen (clinical drug ingredient) Drug/Non Drug Allergy documented on EMR Reaction Allergy Type Onset Date Status Adhesive rash Allergy Active Latex Latex rash Allergy Active Medications Medication SIG (Take, Route, Frequency, Duration) Notes Start Date End Date Status Acetaminophen Extra Strength 500 MG 2 tablets as needed Orally every 6 hrs; Duration: 14 days 11/11/2018 Active Bactrim DS 800-160 MG 1 tablet Orally Twice a day; Duration: 10 day(s) 11/27/2018 Not-Taking Spironolactone 25 MG 1 tablet Orally Active Aspir-Low Active Acidophilus Orally Active Keflex 500 MG 1 capsule Orally every 12 hrs; Duration: 10 day(s) 11/20/2018 Not-Taking Ampicillin 500 MG 1 capsule 1 hour before or 2 hours after a meal Orally every 6 hrs; Duration: 10 day(s) 12/01/2018 Not-Taking Ibuprofen 800 MG 1 tablet with food or milk as needed Orally Three times a day; Duration: 30 days 11/11/2018 Not-Taking Keflex 500 MG 1 capsule Orally every 12 hrs; Duration: 15 days 12/24/2018 Not-Taking Lasix 40 MG Orally BID Not-Gustavo ing Atenolol 50 MG 1 tablet Orally twice daily Not-Taking rOPINIRole HCl 2 MG 1 tablet Orally Once a day Not-Taking Crestor Not-Taking metFORMIN HCl 500 MG 1 tablet with a meal Orally Once a day; Duration: 30 day(s) Not-Taking Ozempic .5 inject 1 a month Not-Taking Iodosorb 0.9 % as directed Externally as needed PRN Not-Taking Potassium Chloride 20 MEQ Orally Once a day Not-Taking Orthopedic Extra Depth Shoes With Custom Heat Molded Multidensity Innersoles as directed Wear Daily; Duration: as needed 12/13/2020 Not-Taking oxyBUTYnin Not-Takin g Extra Depth Diabetic Shoes with 3 Pair Custom heat-molded multi-density innersoles for 1 year Dx: 07/01/2024 Active Extra-Depth Diabetic Shoes with 3 Pair Custom heat-molded multi-density innersoles . for 1 year . Dx:hammertoes with hx of ulcers; Duration: . 04/27/2014 Active vitamin Active Vitamin D 1000 UNIT 1 tablet Orally Once a day Active Tylenol Arthritis Pain 650 mg 1 tablet twice daily Active Terazosin HCl 10 MG Orally 2 po QD Active Lyrica 150 MG Orally Twice a day Active Irbesartan 300 MG 1 tablet Orally Once a day Active hydrALAZINE HCl 50 MG 1 tablet with food Orally Twice Daily 3x daily Active Gabapentin 300 MG 3 capsules Orally Once a day Active PriLOSEC Active Fish Oil Active Furosemide 40mg Active Rosuvastatin Calcium Active Carvedilol Active CeleBREX 200 MG 1 capsule with food Orally Twice a day Active Encounters Encounter Location Date Provider Diagnosis [facility] [address] [address] 01/10/2025 Julee Maninder Plan Of Treatment Next Appt Details Provider Name:Julee A Maninder , 01/02/2026 11:00:00 AM, [address] [place] [address], [address], Progress Notes * Gina MCCULLOUGH MDOB:[birth year] (65 yo F)Acc No.[id number]:01/10/2025 Progress Note Patient: Gina WEBB Provider: Vipul Dickens DPM :1960 A ge:64 Y S ex:Female Date:01/10/2025 Address:[facility] [address] , [address], [place] Pcp:Yolanda Jack MD Subjective: * Chief Complaints: * * Medical History: C hicken pox, Reflux, Osteoporosis, Neuropathy, High blood pressure, Cholesterol, Back, hip, knee pain, Arthritis, Sleep apnea, pre type II diabetes, Carpal tunnel. * Medications: T aking Spironolactone 25 MG Tablet 1 tablet Orally , Taking Acetaminophen Extra Strength 500 MG Tablet 2 tablets as needed Orally every 6 hrs , Taking Acidophilus Tablet Orally , Taking Aspir-Low , Taking CeleBREX 200 MG Capsule 1 capsule with food Orally Twice a day , Taking Carvedilol , Taking Rosuvastatin Calcium , Taking Furosemide , Notes to Pharmacist: 40mg, Taking Fish Oil , Taking Gabapentin 300 MG Capsule 3 capsules Orally Once a day , Taking hydrALAZINE HCl 50 MG Tablet 1 tablet with food Orally Twice Daily , Notes to Pharmacist: 3x daily, Taking Irbesartan 300 MG Tablet 1 tablet Orally Once a day , Taking Lyrica 150 MG Capsule Orally Twice a day , Taking PriLOSEC , Taking Terazosin HCl 10 MG Capsule Orally 2 po QD , Taking Tylenol Arthritis Pain 650 mg 1 tablet twice daily , Taking Vitamin D 1000 UNIT Tablet 1 tablet Orally Once a day , Taking vitamin , Taking Extra-Depth Diabetic Shoes with 3 Pair Custom heat-molded multi-density innersoles . . for 1 year . Dx:hammertoes with hx of ulcers , Taking Extra Depth Diabetic Shoes with 3 Pair Custom heat-molded multi-density innersoles for 1 year Dx: , Not-Taking/PRN oxyBUTYnin , Not-Taking/PRN Orthopedic Extra Depth Shoes With Custom Heat Molded Multidensity Innersoles as directed Wear Daily , Not-Taking/PRN Potassium Chloride 20 MEQ Packet Orally Once a day , Not-Taking/PRN Iodosorb 0.9 % Gel as directed Externally as needed , Notes to Pharmacist: PRN, Not-Taking/PRN Ozempic , Notes to Pharmacist: .5 inject 1 a month, Not-Taking/PRN metFORMIN HCl 500 MG Tablet 1 tablet with a meal Orally Once a day , Not-Taking/PRN Crestor , Not-Taking/PRN rOPINIRole HCl 2 MG Tablet 1 tablet Orally Once a day , Not-Taking/PRN Atenolol 50 MG Tablet 1 tablet Orally twice daily , Not-Taking/PRN Lasix 40 MG Tablet Orally BID , Not-Taking/PRN Keflex 500 MG Capsule 1 capsule Orally every 12 hrs , Not- Taking/PRN Ibuprofen 800 MG Tablet 1 tablet with food or milk as needed Orally Three times a day , Not-Taking/PRN Ampicillin 500 MG Capsule 1 capsule 1 hour before or 2 hours after a meal Orally every 6 hrs , Not-Taking/PRN Keflex 500 MG Capsule 1 capsule Orally every 12 hrs , Not-Taking/PRN Bactrim DS 800-160 MG Tablet 1 tablet Orally Twice a day * Allergies: A dhesive: rash, Latex: rash. Objective: * Vitals: Assessment: Plan: * Treatment: * Images: * The named appointment provid er may or may not be the originator of this progress note, and it is not deemed complete until electronically signed by the appointment provider. Sign off status: Pending * Provider: Vipul Dickens DPM Date: 0 01/10/2025 Generated for Wilder ibarra/Cuong/Gabriella on: 12/28/2024 04:48 PM EST
--- OUTSIDE RECORDS SUMMARY | 2025-02-21 10:15 | XMS_ITS ---
Author Organization [facility] Address [address] [place] [address] Care Team Providers Care Continuous Churn Buttermaker Name Role Phone Yolanda Jack MD Primary Care Provider Unavaila apolinar ManinderJulee Unavailable [phone] Encounters Encounter Location Date Provider Diagnosis [address] [address] 02/21/2025 Julee Maninder Plan Of Treatment Next Appt Details Provider Name:Julee Dickens , 01/02/2026 11:00:00 AM, [address] [place] [address], [address], Progress Notes * Gina MCCULLOUGH MDOB:[birth year] (65 yo F)Acc No.[id number]:02/21/2025 Progress Note Patient: Nic Gina BARBOSA Provider: Vipul Dickens DPM :1960 A ge:64 Y S ex:Female Date:02/21/2025 Address:[address], [address], [id number] Pcp:Yolanda Jack MD Subjective: * Chief Complaints: [...] 02/21/2025 Generated for Wilder ibarra/Cuong/Gabriella on: 1 12/28/2024 04:48 PM EST
--- NOTE | ~2025-10-27 | FL_ITS ---
EXAMINATION: XR ARTHROGRAM SHOULDER, LEFT CLINICAL INFORMATION: M77.8 - Other enthesopathies, not elsewhere classified COMPARISON: Left shoulder x-rays September 2025 TECHNIQUE: Procedure risks and benefits including bleeding and infection were discussed with the patient and informed consent was obtained. The left anterior shoulder was prepped and draped in the usual sterile fashion. The skin and soft tissues were anesthetized with 1% lidocaine plain. Using fluoroscopic guidance and a 22-gauge spinal needle, access to the joint space was obtained. 1 to 2 mm of Omnipaque 350 contrast was injected fluoroscopically confirming adequate placement in the joint space. Subsequently, a mixture of 40 mg of Decadron, 3 mL 0.25% bupivacaine and 3 mL of 1% lidocaine plain was injected into the joint space. FINDINGS: Images demonstrate adequate needle placement over the joint space. 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 FLUOROSCOPY TIME: 2.48 minutes DOSE AREA PRODUCT: 5190 uGy-m2 (microgray-meter squared) FL/FL Guided Asp Inj Major Jt LT IMPRESSION: Fluoroscopy-guided left shoulder arthrogram. Electronically signed by: Nohelia Sue MD 10/27/2025 03:24 PM CALOS
[2025-10-27] MEDS: Lidocaine HCl 1 % MPF 30 ML VIAL 5 ML INTRAARTIC (14:48)
--- OUTSIDE RECORDS SUMMARY | 2025-10-27 16:49 | XMS_ITS | Patient Health Record ---
Author Organization [facility] Address [address] [facility] [place] [address] Care Team Providers Care Edging Catcher Name Role Phone Yolanda Jack MD Primary Care Provider Unavaila ble Black, Julee Unavailable [phone] Allergies Allergen (clinical drug ingredient) Drug/Non Drug [...] Problem Acquired hammer toe of right foot ([id number] ) Other hammer toe(s) (acquired), right foot (M20.41) Active confirmed Problem Acquired hammer toe of left foot (2428752132520956 ) Other hammer toe(s) (acquired), left foot (M20.42) Active confirmed Problem Polyneuropathy due to type 2 diabetes mellitus (910507525) Type 2 diabetes mellitus with diabetic polyneuropathy (E11.42) Active confirmed Problem Osteomyelitis (61621342) 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) Active confirmed Vital Signs Blood pressure diastolic 70 mm Hg 09/01/2025 Height 5ft1in in 09/01/2025 Blood pressure systolic 120 mm Hg 09/01/2025 Weight 290 lbs 09/01/2025 BMI 54.79 kg/m2 09/01/2025 Procedures Procedure Date Ordered Date Performed Result Body Sit e 19913-OWIWRLV NAIL, 6 OR MORE 05/30/2025 N/A 47878-ADAY SKIN LESIONS, 2 TO 4 05/30/2025 N/A 45058-FPYJBLJ NAIL, 6 OR MORE 09/01/2025 N/A 12010-EAWI SKIN LESIONS, 2 TO 4 09/01/2025 N/A Encounters Encounter Location Date Provider Diagnosis [address] [address] 05/30/2025 Julee Black Type 2 diabetes mellitus with diabetic polyneuropathy E11.42 and [facility] [address] 09/01/2025 Julee Dickens Other hammer toe(s) (acquired), right foot M20.41 ; Other hammer toe(s) (acquired), left foot M20.42 ; Type 2 diabetes mellitus with diabetic polyneuropathy E11.42 ; Onychomycosis B35.1 and Toe osteomyelitis M86.[address] [address] 01/05/2025 [facility] [address] 02/17/2025 Julee Dickens Assessments Encounter Date Diagnosis (ICD Code) Assessment Notes Treatment Notes Treatment Clinical Notes Section Notes 05/30/2025 Type 2 diabetes mellitus with diabetic [...] X ray : Foot, right 3V 12/14/2018 74366-BNLBHGL NAIL, 6 OR MORE 02/16/2018 84179-YUMKKSH NAIL, 6 OR MORE 04/20/2018 05587-PQSECRH NAIL, 6 OR MORE 06/29/2018 33755-SMJFUPG NAIL, 6 OR MORE 09/25/2017 46018-LGXDCJN NAIL, 6 OR MORE 12/22/2017 72559-DIGPMIE NAIL, 6 OR MORE 09/19/2016 21550-RTABRXA NAIL, 6 OR MORE 10/09/2016 84667-JMDTFWT NAIL, 6 OR MORE 02/17/2017 21778-OOIPIMJ NAIL, 6 OR MORE 06/19/2017 74675-MSWYOQM NAIL, 6 OR MORE 03/24/2019 63512-PHBZHLO NAIL, 6 OR MORE 07/13/2019 39884-HTEMGUX NAIL, 6 OR MORE 10/18/2019 61101-KZAIOBC NAIL, 6 OR MORE 01/31/2020 30866-EHUYMHQ NAIL, 6 OR MORE 04/24/2020 83752-ZRRQNMA NAIL, 6 OR MORE 07/27/2020 74494-VJVRQEU NAIL, 6 OR MORE 12/13/2020 93990-PQXSZYN NAIL, 6 OR MORE 03/12/2021 75933-HPGLTDX NAIL, 6 OR MORE 05/20/2016 78952-WBTCLJV NAIL, 6 OR MORE 12/04/2015 91078-LQZDYGL NAIL, 6 OR MORE 02/14/2016 59717-YJUGJOP NAIL, 6 OR MORE 05/08/2016 64656-LAPHHHV NAIL, 6 OR MORE 08/02/2015 29077-MPITKZG NAIL, 6 OR MORE 08/07/2015 95874-OZYFQQI NAIL, 6 OR MORE 10/29/2013 07210-MBWEDVZ NAIL, 6 OR MORE 04/27/2014 76549-CNBWCES NAIL, 6 OR MORE 07/27/2014 80743-TBKPSAA NAIL, 6 OR MORE 10/26/2014 98885-JFHZPQU NAIL, 6 OR MORE 01/25/2015 99134-WVJYQJP NAIL, 6 OR MORE 01/13/2012 91939-LOSXEJA NAIL, 6 OR MORE 03/25/2012 87006-KNRGIXI NAIL, 6 OR MORE 06/24/2012 47280-TSZPWAI NAIL, 6 OR MORE 12/02/2012 64217-OHAMFLO NAIL, 6 OR MORE 02/15/2013 00677-EAWFIET NAIL, 6 OR MORE 04/22/2013 48427-PTABVOQ NAIL, 6 OR MORE 05/30/2025 81802-IYCBGCM NAIL, 6 OR MORE 09/01/2025 78411-HETIKYP NAIL, 1-5 01/19/2014 24660-Ultrkjju Plate 01/25/2015 97751-Vtzyclwr Plate 10/26/2014 79507-Pfmajccg Plate 07/27/2014 62651-Zwpkyrbj Plate 08/07/2015 95028-Dwximtwu Plate 08/02/2015 00155-Hannlsjg Plate 05/04/2015 97372-Ztdyqlaj Plate 10/24/2015 63573-Sakuuxkm Plate 05/20/2013 98590-Vplbzpci Plate 06/23/2013 05506-Cmelivxm Plate 03/31/2013 65738-Pnthpvda Plate 03/01/2013 19696-Owuzpqmy Plate 06/24/2012 92974-Fsgviqem Plate 09/16/2012 41757-Ncwnomdl Plate 03/25/2012 87360-Xgdawhuw Plate 06/11/2021 71619-Yhfuvchc Plate 12/13/2020 95933-Bhubyujx Plate 07/27/2020 30266-Oqzqdslu Plate 10/18/2019 65360-Hglpadoy Plate 01/31/2020 41675-Dwaqzqvs Plate Each Additional 59898-Npfszmra Plate Each Additional 89830-Ezbrkfak Plate Each Additional 56005-Ffizqkob Plate Each Additional 61090-Zxbgcvfn Plate Each Additional 47440-SCC 09/23/2013 84685-YBZ 10/15/2013 24701-BQV 01/16/2017 27537- Debride <25 sq cm 01/16/2017 34099- Debride <25 sq cm 01/31/2017 33753- Debride <25 sq cm 02/17/2017 80183- Debride <25 sq cm 09/25/2017 98737- Debride <25 sq cm 03/20/2017 61129- Debride <25 sq cm 10/09/2016 01793- Debride <25 sq cm 10/23/2016 62194- Debride <25 sq cm 11/28/2016 47903- Debride <25 sq cm 01/01/2017 21249- Debride <25 sq cm 09/19/2016 58540- Debride <25 sq cm 06/06/2016 23656- Debride <25 sq cm 08/09/2016 42091- Debride <25 sq cm 02/16/2018 23735- Debride <25 sq cm 10/28/2017 00055- Debride <25 sq cm 11/17/2017 78363- Debride <25 sq cm 12/22/2017 34062- Debride <25 sq cm 08/13/2018 53761- Debride <25 sq cm 09/03/2018 61901- Debride <25 sq cm 09/24/2018 58036- Debride <25 sq cm 10/08/2018 57771- Debride <25 sq cm 04/20/2018 37203- Debride <25 sq cm 02/18/2019 23857- Debride <25 sq cm 03/24/2019 53583- Debride <25 sq cm 01/14/2022 01730- Debride <25 sq cm 10/28/2022 88019- Debride <25 sq cm 02/13/2023 21177- Debride <25 sq cm 05/22/2023 66600- Debride <25 sq cm 06/23/2013 15893- Debride <25 sq cm 05/20/2013 84944- Debride <25 sq cm 03/01/2013 29804- Debride <25 sq cm 03/15/2013 42543- Debride <25 sq cm 03/31/2013 36780- Debride <25 sq cm 04/22/2013 01486- Debride <25 sq cm 02/15/2013 44696- Debride <25 sq cm 03/25/2012 00041- Debride <25 sq cm 01/13/2012 46890- Debride <25 sq cm 09/16/2012 48946- Debride <25 sq cm 12/02/2012 15972- Debride <25 sq cm 06/24/2012 56470- Debride <25 sq cm 07/27/2014 91180- Debride <25 sq cm 10/26/2014 85624- Debride <25 sq cm 01/25/2015 45420- Debride <25 sq cm 01/19/2014 69020- Debride <25 sq cm 10/28/2011 74263- Debride <25 sq cm 11/19/2013 69017- Debride <25 sq cm 05/04/2015 93487- Debride <25 sq cm 05/18/2015 85219- Debride <25 sq cm 06/02/2015 99326- Debride <25 sq cm 06/22/2015 89387-JKZPKPV SKIN/TISSUE 05/20/2016 48866-EGIRHEL SKIN/TISSUE 05/08/2016 26630-CCXUUQI SKIN/TISSUE 10/29/2013 14770-KMBPQKY SKIN/TISSUE 04/27/2014 61923-HYGASVM SKIN/TISSUE 10/13/2012 03719-SLYRSIF SKIN/TISSUE 10/30/2012 68314-HOTQCMT SKIN/TISSUE 09/17/2011 04938-KKBFAVT SKIN/TISSUE 10/15/2013 82622-UDTTAMR SKIN/TISSUE 01/18/2019 36742-PCKLIPQ SKIN/TISSUE 02/01/2019 72756-UAKOGQW SKIN/TISSUE 07/23/2016 64729-BEYWTLM SKIN/TISSUE 01/31/2017 31327-CPDVFYX SKIN/TISSUE 03/11/2024 96489 I&D ABSCESS- SIMPLE,SINGLE 011 43219-QJUO SKIN LESIONS, OVER 4 05/22/20 23 51846-LLQO SKIN LESIONS, OVER 4 02/14/20 23 19458-HYWQ SKIN LESIONS, 2 TO 4 10/28/20 22 41059-WBDO SKIN LESIONS, 2 TO 4 09/24/20 21 17340-AWHU SKIN LESIONS, 2 TO 4 04/22/20 22 40477-XIVE SKIN LESIONS, 2 TO 4 07/22/20 22 46208-XDKI SKIN LESIONS, 2 TO 4 06/11/20 21 91491-HNCP SKIN LESIONS, 2 TO 4 07/01/20 24 46888-TEAO SKIN LESIONS, 2 TO 4 10/11/20 24 36994-GFUE SKIN LESIONS, 2 TO 4 09/01/20 23 25755-HIRA SKIN LESIONS, 2 TO 4 12/11/19 24 27538-PVGU SKIN LESIONS, 2 TO 4 03/11/20 24 94314-XEUG SKIN LESIONS, 2 TO 4 05/30/20 25 38862-WAZJ SKIN LESIONS, 2 TO 4 09/01/20 51657-IALO NAIL(S) 07/22/2022 28816-MWRV NAIL(S) 04/22/2022 27229-ZHEF NAIL(S) 09/24/2021 82625-MTKU NAIL(S) 01/14/2022 00993-YHTK NAIL(S) 10/28/2022 X0970-KTHTUEZD DYSTROPHIC NAILS ANY # D6382-CTFBJDLQ DYSTROPHIC NAILS ANY # F3221-ZKSURRDV DYSTROPHIC NAILS ANY # C2477-SUXZQFCK DYSTROPHIC NAILS ANY # N9409-PBHQDAZI DYSTROPHIC NAILS ANY # N5010-ZELRBQRP DYSTROPHIC NAILS ANY # N3424-ZULEHJWG DYSTROPHIC NAILS ANY # O1776-JAGQSQQN DYSTROPHIC NAILS ANY # 92218 - Tenotomy, open flexor 01/16/2018 Next Appt Details Provider Name:Julee Dickens , 01/02/2026 11:00:00 AM, [address] [place] [address], [place], [address], Insurance Providers Payer Name Payer Address Payer Phone Subscriber Number Group Number Insured Name Patient Relationship to Insured Coverage Start Date Coverage End Date Medicare National Govt Svcs Inc [address] [place] [address] [id number] Gina Milan Self - patient is the insured 3 [employer] Blue [employer] [address] [place] [address] [phone] [id number] Gina Milan Self - patient is the insured [facility] Office of Community Care [address] [address] [place] [address] [phone] [id number] Gina Milan Self - patient is the insured 9 6 Medical (General) History Medical History History ICD [...] History Reason Date(Month/Year) Cellulitis 08/04 Cellulitis 08/20/25 [place] ER Visit 3 times 10/18,, 11/2019 [facility] 08/06/18 [facility] lumbar fusion 04/14/2017
--- OUTSIDE RECORDS SUMMARY | 2025-10-27 16:49 | XMS_ITS | Clinical Summary ---
Author Organization [facility] Address [address] [place] [address] [place] [address] Phone Care Team Providers Care Engineering Lecturer Name Role Phone Yolanda Jack MD Primary Care Provider [phone] Social History Tobacco Use Types Packs/Day Years [...] topic Medical Devices Not on file Insurance [employer] [facility] [place] EPO [employer] [facility] [place] E[facility] EPO [facility] POS EPO [facility] POS EPO [facility] POS EPO [facility] POS EPO Care Teams Engineering Lecturer Relationship Specialty Start Date End Date Yolanda Jack [facility] [address] [facility] [place] [id number] PCP - General Internal Medicine 04/06/19 Additional Source Comments The information contained in this document represents components of the legal health record. It is not the complete legal health record.[facility]
--- OUTSIDE RECORDS SUMMARY | 2025-10-27 16:49 | XMS_ITS | Encounter Summary ---
Author Organization [facility] Address [address] [facility] [address] [place] [address] Phone Care Team Providers Care General Distillery Worker Name Role Phone Yolanda Jack MD Primary Care Provider [phone] Encounter Details Date Type Department Care Team (Late st Contact Info) Description 04/07/2019 Procedure Pass [facility] [address] [place] [address] Social History Tobacco Use Types Packs/Day Years [...] on filedocumented in this encounter Care Teams General Distillery Worker Relationship Specialty Start Date End Date Yolanda Jack MD [address] [place] [address] PCP - General Internal Medicine 04/06/19 documented as of this encounter Additional Source Comments The information contained in this document represents components of the legal health record. It is not the complete legal health record.[facility]
--- OUTSIDE RECORDS SUMMARY | 2025-10-27 16:49 | XMS_ITS | Encounter Summary ---
Author Organization [facility] Address [address] [place] [address] Phone Care Team Providers Care Sewing Machine Operator Plastic Zipper Name Role Phone Yolanda Jack MD Primary Care Provider Encounter Details Date Type Department Care Team (Late st Contact Info) Description 04/07/2019 Procedure Pass [facility] [address] [place] [address] Social History Tobacco Use Types Packs/Day Years [...] on filedocumented in this encounter Care Teams Sewing Machine Operator Plastic Zipper Relationship Specialty Start Date End Date Yolanda Jack MD [address] [place] [address] PCP - General Internal Medicine 04/06/19 documented as of this encounter Additional Source Comments The information contained in this document represents components of the legal health record. It is not the complete legal health record.[facility]
== END 2025-10-27 12:56 | disposition home or self-care (01) ==
LOC: HO.XRAY 12:55
PROVIDERS: PCP Internal Medicine; Visit Provider Physician Assistant
DX: M77.8 Other enthesopathies, not elsewhere classified (principal)
CPT/HCPCS: 20610; 77002; J2003; Q9967

== ENCOUNTER → 2025-10-27 12:56 | Outpatient (BNV) | payer MEDICARE, OTHER, SELFPAY | PROVIDERS: PCP Internal Medicine; Visit Provider Radiology Diagnostic Radiology | DX: M77.8 Other enthesopathies, not elsewhere classified (principal) | CPT/HCPCS: 20610; 77002 ==

== ENCOUNTER 2025-10-29 10:39 | Outpatient (REF) | payer MEDICARE, OTHER, SELFPAY ==
--- OUTSIDE RECORDS SUMMARY | 2025-01-10 04:15 | XMS_ITS ---
Author Organization [facility] Address [address] [facility] [place] [address] Care Team Providers Care Family Medicine Physician Name Role Phone Yolanda Jack MD Primary Care Provider Unavaila apolinar Enoc Dickensmie Unavailable [phone] Allergies Allergen (clinical drug ingredient) Drug/Non Drug [...] Active Encounters Encounter Location Date Provider Diagnosis [facility] [address] [address] 01/10/2025 Julee Maninder Plan Of Treatment Next Appt Details Provider Name:Julee A Maninder , 01/02/2026 11:00:00 AM, [address] [place] [address], [address], Progress Notes * Gina MCCULLOUGH MDOB:[birth year] (65 yo F)Acc No.[id number]:01/10/2025 Progress Note Patient: Gina WEBB Provider: Vipul Dickens DPM :1960 A ge:64 Y S ex:Female Date:01/10/2025 Address:[facility] [address] , [address], [place] Pcp:Yolanda Jack MD Subjective: * Chief Complaints: [...] 0 01/10/2025 Generated for Wilder ibarra/Cuong/Gabriella on: 1 12/30/2024 10:42 AM EST
--- OUTSIDE RECORDS SUMMARY | 2025-02-21 10:15 | XMS_ITS ---
Author Organization [facility] Address [address] [place] [address] Care Team Providers Care Paralegal Specialist Name Role Phone Yolanda Jack MD Primary Care Provider Unavaila apolinar ManinderJulee Unavailable [phone] Encounters Encounter Location Date Provider Diagnosis [address] [address] 02/21/2025 Julee Maninder Plan Of Treatment Next Appt Details Provider Name:Julee Dickens , 01/02/2026 11:00:00 AM, [address] [place] [address], [phone], Progress Notes * Gina MCCULLOUGH MDOB:[birth year] (65 yo F)Acc No.[id number]:02/21/2025 Progress Note Patient: Nic Gina BARBOSA Provider: Vipul Dickens DPM :1960 A ge:64 Y S ex:Female Date:02/21/2025 Address:[address], [address], [id number] Pcp:Yolanda Jack MD Subjective: * Chief Complaints: [...] 02/21/2025 Generated for Wilder ibarra/Cuong/Gabriella on: 1 12/30/2024 10:42 AM EST
--- OUTSIDE RECORDS SUMMARY | 2025-10-29 10:42 | XMS_ITS | Encounter Summary ---
Author Organization [facility] Address [address] [place] [address] Phone Care Team Providers Care Log Getter Name Role Phone Yolanda Jack MD Primary Care Provider [phone] Encounter Details Date Type Department Care Team (Late st Contact Info) Description 04/07/2019 Procedure Pass [facility] [address] [place] [address] Social History Tobacco Use Types Packs/Day Years [...] on filedocumented in this encounter Care Teams Log Getter Relationship Specialty Start Date End Date Yolanda Jack MD [address] [place] [address] PCP - General Internal Medicine 04/06/19 documented as of this encounter Additional Source Comments The information contained in this document represents components of the legal health record. It is not the complete legal health record.[facility]
--- OUTSIDE RECORDS SUMMARY | 2025-10-29 10:43 | XMS_ITS | Patient Health Record ---
Author Organization [facility] Address [address] [place] [address] Care Team Providers Care Poundmaster Name Role Phone Yolanda Jack MD Primary Care Provider Unavaila ble Black, Julee Unavailable [phone] Allergies Allergen (clinical drug ingredient) Drug/Non Drug [...] Problem Acquired hammer toe of right foot (4500221245504293 ) Other hammer toe(s) (acquired), right foot (M20.41) Active confirmed Problem Acquired hammer toe of left foot (1064644985751353 ) Other hammer toe(s) (acquired), left foot (M20.42) Active confirmed Problem Polyneuropathy due to type 2 diabetes mellitus (733595216) Type 2 diabetes mellitus with diabetic polyneuropathy (E11.42) Active confirmed Problem Osteomyelitis (52359830) 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) Active confirmed Vital Signs Blood pressure diastolic 70 mm Hg 09/01/2025 Height 5ft1in in 09/01/2025 Blood pressure systolic 120 mm Hg 09/01/2025 Weight 290 lbs 09/01/2025 BMI 54.79 kg/m2 09/01/2025 Procedures Procedure Date Ordered Date Performed Result Body Sit e 77295-RCQJANM NAIL, 6 OR MORE 05/30/2025 N/A 08494-RFNZ SKIN LESIONS, 2 TO 4 05/30/2025 N/A 60457-USBGXQZ NAIL, 6 OR MORE 09/01/2025 N/A 21495-TSGI SKIN LESIONS, 2 TO 4 09/01/2025 N/A Encounters Encounter Location Date Provider Diagnosis [address] [address] 05/30/2025 Julee Black Type 2 diabetes mellitus with diabetic polyneuropathy E11.42 and [facility] [address] 09/01/[facility]25 Julee Dickens Other hammer toe(s) (acquired), right foot M20.41 ; Other hammer toe(s) (acquired), left foot M20.42 ; Type 2 diabetes mellitus with diabetic polyneuropathy E11.42 ; Onychomycosis B35.1 and Toe osteomyelitis M86.[address] [address] 01/05/2025 [facility] [address] 02/17/2025 Julee Dickens Assessments Encounter Date Diagnosis [...] X ray : Foot, right 3V 12/14/2018 17553-GSPAJJX NAIL, 6 OR MORE 02/16/2018 01143-WVCDAGU NAIL, 6 OR MORE 04/20/2018 51415-ODKZWAT NAIL, 6 OR MORE 06/29/2018 01066-OBBCZXD NAIL, 6 OR MORE 09/25/2017 36710-GJHKBIR NAIL, 6 OR MORE 12/22/2017 03231-XTLPCEC NAIL, 6 OR MORE 09/19/2016 77835-ZVSMVRM NAIL, 6 OR MORE 10/09/2016 50532-FBFWOOL NAIL, 6 OR MORE 02/17/2017 07843-DTVVCYE NAIL, 6 OR MORE 06/19/2017 22227-UKFFLUW NAIL, 6 OR MORE 03/24/2019 51520-UCBUHCB NAIL, 6 OR MORE 07/13/2019 90162-OPROKYL NAIL, 6 OR MORE 10/18/2019 65161-SQPEIIP NAIL, 6 OR MORE 01/31/2020 39351-MATCYXY NAIL, 6 OR MORE 04/24/2020 45269-NJPEKDY NAIL, 6 OR MORE 07/27/2020 52231-PIRWMPA NAIL, 6 OR MORE 12/13/2020 32690-LXQOURT NAIL, 6 OR MORE 03/12/2021 82553-VLDXIDD NAIL, 6 OR MORE 05/20/2016 73537-XYRFEPA NAIL, 6 OR MORE 12/04/2015 69869-PEDCXRW NAIL, 6 OR MORE 02/14/2016 25883-GGMQQCE NAIL, 6 OR MORE 05/08/2016 06697-EQTXZEE NAIL, 6 OR MORE 08/02/2015 90918-OBMEIPL NAIL, 6 OR MORE 08/07/2015 75773-NXOUGMA NAIL, 6 OR MORE 10/29/2013 41655-VTXTNIP NAIL, 6 OR MORE 04/27/2014 71925-BUGFFZO NAIL, 6 OR MORE 07/27/2014 33977-AUADTRE NAIL, 6 OR MORE 10/26/2014 20989-NNLQWCZ NAIL, 6 OR MORE 01/25/2015 81343-GFTGNEE NAIL, 6 OR MORE 01/13/2012 26432-WROFRZC NAIL, 6 OR MORE 03/25/2012 07039-UNMTYXL NAIL, 6 OR MORE 06/24/2012 20420-UQLVQTQ NAIL, 6 OR MORE 12/02/2012 37172-GSLUORP NAIL, 6 OR MORE 02/15/2013 11369-VZZOJDJ NAIL, 6 OR MORE 04/22/2013 62202-CSBAJYO NAIL, 6 OR MORE 05/30/2025 53027-TDMSWAA NAIL, 6 OR MORE 09/01/2025 54067-JCXSIRQ NAIL, 1-5 01/19/2014 17537-Dhjzibks Plate 01/25/2015 32296-Eixdiwqx Plate 10/26/2014 19528-Tfphfjjn Plate 07/27/2014 91882-Zobkbtqf Plate 08/07/2015 04394-Ikomlhla Plate 08/02/2015 40352-Jcsduvjr Plate 05/04/2015 41837-Nhfdeutt Plate 10/24/2015 53355-Qjdypxqj Plate 05/20/2013 75573-Cumbtgxh Plate 06/23/2013 16515-Ptaidbsi Plate 03/31/2013 39757-Ybzvncje Plate 03/01/2013 52886-Dbvyremh Plate 06/24/2012 02431-Qvnolssm Plate 09/16/2012 82365-Fgvzlcdm Plate 03/25/2012 42485-Favctpjs Plate 06/11/2021 20548-Ofkemepf Plate 12/13/2020 38894-Ispoyjtp Plate 07/27/2020 61165-Ztwzuvvs Plate 10/18/2019 56090-Errynube Plate 01/31/2020 55752-Muwojirc Plate Each Additional 83987-Ninlglyl Plate Each Additional 66454-Afzzigxg Plate Each Additional 51788-Zwzidyzs Plate Each Additional 80007-Lmtokkvw Plate Each Additional 48940-LOH 09/23/2013 82015-OCA 10/15/2013 43975-FLK 01/16/2017 95921- Debride <25 sq cm 01/16/2017 95673- Debride <25 sq cm 01/31/2017 40267- Debride <25 sq cm 02/17/2017 25869- Debride <25 sq cm 09/25/2017 51101- Debride <25 sq cm 03/20/2017 49343- Debride <25 sq cm 10/09/2016 97565- Debride <25 sq cm 10/23/2016 58628- Debride <25 sq cm 11/28/2016 07850- Debride <25 sq cm 01/01/2017 94312- Debride <25 sq cm 09/19/2016 38394- Debride <25 sq cm 06/06/2016 05455- Debride <25 sq cm 08/09/2016 06659- Debride <25 sq cm 02/16/2018 73772- Debride <25 sq cm 10/28/2017 75923- Debride <25 sq cm 11/17/2017 73541- Debride <25 sq cm 12/22/2017 11711- Debride <25 sq cm 08/13/2018 94493- Debride <25 sq cm 09/03/2018 27779- Debride <25 sq cm 09/24/2018 53080- Debride <25 sq cm 10/08/2018 18435- Debride <25 sq cm 04/20/2018 50316- Debride <25 sq cm 02/18/2019 25559- Debride <25 sq cm 03/24/2019 16389- Debride <25 sq cm 01/14/2022 05185- Debride <25 sq cm 10/28/2022 65381- Debride <25 sq cm 02/13/2023 69548- Debride <25 sq cm 05/22/2023 27464- Debride <25 sq cm 06/23/2013 05066- Debride <25 sq cm 05/20/2013 45972- Debride <25 sq cm 03/01/2013 59135- Debride <25 sq cm 03/15/2013 57622- Debride <25 sq cm 03/31/2013 21399- Debride <25 sq cm 04/22/2013 80738- Debride <25 sq cm 02/15/2013 32717- Debride <25 sq cm 03/25/2012 39340- Debride <25 sq cm 01/13/2012 97197- Debride <25 sq cm 09/16/2012 32446- Debride <25 sq cm 12/02/2012 61944- Debride <25 sq cm 06/24/2012 71726- Debride <25 sq cm 07/27/2014 65256- Debride <25 sq cm 10/26/2014 50542- Debride <25 sq cm 01/25/2015 89493- Debride <25 sq cm 01/19/2014 74649- Debride <25 sq cm 10/28/2011 91739- Debride <25 sq cm 11/19/2013 88633- Debride <25 sq cm 05/04/2015 51994- Debride <25 sq cm 05/18/2015 65839- Debride <25 sq cm 06/02/2015 99747- Debride <25 sq cm 06/22/2015 59999-FFVELOM SKIN/TISSUE 05/20/2016 27330-JBQCGDU SKIN/TISSUE 05/08/2016 45416-KFLURRY SKIN/TISSUE 10/29/2013 15135-TKWKPSF SKIN/TISSUE 04/27/2014 85430-VMWAEHK SKIN/TISSUE 10/13/2012 00930-BFIKZMC SKIN/TISSUE 10/30/2012 16194-LJBPMOJ SKIN/TISSUE 09/17/2011 81303-ZZNSCDX SKIN/TISSUE 10/15/2013 83187-LIODZKO SKIN/TISSUE 01/18/2019 21662-AYPCUKZ SKIN/TISSUE 02/01/2019 24755-DKRNFHB SKIN/TISSUE 07/23/2016 64680-MSMHAVF SKIN/TISSUE 01/31/2017 84883-YGHVFSJ SKIN/TISSUE 03/11/2024 09913 I&D ABSCESS- SIMPLE,SINGLE 011 92788-NCNI SKIN LESIONS, OVER 4 05/22/20 23 07708-AXEL SKIN LESIONS, OVER 4 02/14/20 23 22822-EUIS SKIN LESIONS, 2 TO 4 10/28/20 22 61317-FFOH SKIN LESIONS, 2 TO 4 09/24/20 21 54012-VXQS SKIN LESIONS, 2 TO 4 04/22/20 22 47935-PBVV SKIN LESIONS, 2 TO 4 07/22/20 22 96549-FAUY SKIN LESIONS, 2 TO 4 06/11/20 21 61043-BFWT SKIN LESIONS, 2 TO 4 07/01/20 24 82322-SNMJ SKIN LESIONS, 2 TO 4 10/11/20 24 03663-BNFU SKIN LESIONS, 2 TO 4 09/01/20 23 03677-IURU SKIN LESIONS, 2 TO 4 12/11/19 24 32792-DVGR SKIN LESIONS, 2 TO 4 03/11/20 24 14983-HJEU SKIN LESIONS, 2 TO 4 05/30/20 25 86260-BVFG SKIN LESIONS, 2 TO 4 09/01/20 17304-DODW NAIL(S) 07/22/2022 46061-LCFX NAIL(S) 04/22/2022 83793-PLZO NAIL(S) 09/24/2021 02881-AKTU NAIL(S) 01/14/2022 46696-BYDJ NAIL(S) 10/28/2022 P5662-ADSPSBCU DYSTROPHIC NAILS ANY # R0721-JJROOTQV DYSTROPHIC NAILS ANY # Y9294-CGSXOBTF DYSTROPHIC NAILS ANY # Q8567-DJROVHPS DYSTROPHIC NAILS ANY # W3417-BWXBDFRE DYSTROPHIC NAILS ANY # Q7955-BDHANXPY DYSTROPHIC NAILS ANY # K6727-YTRRXOQQ DYSTROPHIC NAILS ANY # I5663-UQPQKIBO DYSTROPHIC NAILS ANY # 50895 - Tenotomy, open flexor 01/16/2018 Next Appt Details Provider Name:Julee Dickens , 01/02/2026 11:00:00 AM, [address] [place] [address], [place], [address], Insurance Providers Payer Name Payer Address Payer Phone Subscriber Number Group Number Insured Name Patient Relationship to Insured Coverage Start Date Coverage End Date Medicare National Govt Sv[employer] [address] [place] [address] [id number] Gina Milan Self - patient is the insured 3 [employer] [address] [place] [address] [phone] [id number] Gina Milan Self - patient is the insured [facility] Community [facility] [address] [address] [place] [address] [phone] [id number] Gina Milan Self - patient is the [...] History Reason Date(Month/Year) Cellulitis 08/04 Cellulitis 08/20/25 [place] [facility] Visit 3 times 10/18,, [facility] [facility] Right [facility] Ulcer[facility] 08/06/18 [facility] lumbar fusion 04/14/2017
--- OUTSIDE RECORDS SUMMARY | 2025-10-29 10:43 | XMS_ITS | Clinical Summary ---
Author Organization [facility] Address [address] [place] [address] [place] [address] Phone Care Team Providers Care Parent Partner Name Role Phone Yolanda Jack MD Primary Care Provider [phone] Social History Tobacco Use Types Packs/Day Years [...] topic Medical Devices Not on file Insurance [employer] [facility] [place] EPO [employer] [facility] POS EPO [facility] POS [facility]PO [facility] POS EPO [facility] POS EPO [facility] POS EPO [facility] POS EPO [facility] POS EPO [facility] POS EPO Care Teams Parent Partner Relationship Specialty Start Date End Date Yolanda Jack MD [address] [facility] [place] [id number] PCP - General Internal Medicine 04/06/19 Additional Source Comments The information contained in this document represents components of the legal health record. It is not the complete legal health record.[facility]
--- OUTSIDE RECORDS SUMMARY | 2025-10-29 10:43 | XMS_ITS | Encounter Summary ---
Author Organization [facility] Address [address] [place] [address] Phone Care Team Providers Care Jig Bore Tool Maker Name Role Phone Yolanda Jack MD Primary Care Provider [phone] Encounter Details Date Type Department Care Team (Late st Contact Info) Description 04/07/2019 Procedure Pass [facility] [address] [place] [address] Social History Tobacco Use Types Packs/Day Years [...] on filedocumented in this encounter Care Teams Jig Bore Tool Maker Relationship Specialty Start Date End Date Yolanda Jack MD [address] [place] [address] PCP - General Internal Medicine 04/06/19 documented as of this encounter Additional Source Comments The information contained in this document represents components of the legal health record. It is not the complete legal health record.[facility]
[2025-10-29 11:49] LABS: MANUAL DIFF FLAG NO
[2025-10-29 11:51] LABS: Hematocrit 36.3 % (37.0-47.0); Hemoglobin 11.8 g/dl (12.0-16.0); Imm Gran Abs Auto 0.06 X10*3/uL (0.00-0.03); Imm Gran Pct Auto 0.5 % (0.0-0.4); Lymphocytes Absolute Auto 4.1 X10*3/uL (1.2-4.9); Mean Corpuscular HGB Conc 32.5 g/dl (31.0-35.0); Mean Corpuscular Hemoglobin 26.8 pg (27.0-33.0); Mean Corpuscular Volume 82.5 fL (80.0-98.0); NRBC Abs Auto 0.000 X10*3/uL (0.0-0.012); NRBC Pct Auto 0.0 /100WBC (0.0-0.2); Platelet Count 256 X10*3/uL (160-400); Red Blood Count 4.40 X10*6/uL (4.20-5.50); White Blood Count 11.7 X10*3/uL (4.8-10.8)
[2025-10-29 12:25] LABS: Alanine Aminotransferase 80 U/L (0-31); Albumin Level 4.1 g/dL (3.5-5.0); Alkaline Phosphatase 125 U/L (39-117); Anion Gap 15 (12-20); Aspartate Amino Transferase 47 U/L (5-31); Blood Urea Nitrogen 32 mg/dL (9-16); Calcium 9.6 mg/dL (8.4-10.2); Carbon Dioxide 28 mmol/L (22-29); Chloride 102 mmol/L (96-108); Cholesterol 139 mg/dL (<200); Estimated Glomerular Filt Rate > 60; HDL Cholesterol 36 mg/dL (>40); Potassium 4.4 mmol/L (3.3-5.1); Sodium 141 mmol/L (135-145); Total Protein 7.0 g/dL (6.5-8.0); Triglycerides 189 mg/dL (<150)
[2025-10-29 14:29] LABS: Microalbum/Creatinine Ratio Ur 11.4 ug/mg cr (<30)
== END 2025-10-29 10:40 | disposition home or self-care (01) ==
LOC: HO.HMGCLDS 10:39
PROVIDERS: PCP Internal Medicine; Visit Provider Internal Medicine
DX: E11.9 Type 2 diabetes mellitus without complications (principal); E66.01 Morbid (severe) obesity due to excess calories; I10 Essential (primary) hypertension
CPT/HCPCS: 36415; 80053; 80061; 82043; 82570; 83036; 85025

== ENCOUNTER 2025-11-07 11:30 | Outpatient (AMB) | payer MEDICARE, OTHER, SELFPAY ==
--- OUTSIDE RECORDS SUMMARY | 2025-01-10 04:15 | XMS_ITS ---
Author Organization [facility] Address [address] [facility] [place] [address] Care Team Providers Care Material Control Associate Name Role Phone Yolanda Jack MD Primary Care Provider Unavaila apolinar Enoc Dickensmie Unavailable [phone] Allergies Allergen (clinical drug ingredient) Drug/Non Drug [...] Active Encounters Encounter Location Date Provider Diagnosis [facility] [address] [address] 01/10/2025 Julee Maninder Plan Of Treatment Next Appt Details Provider Name:Julee A Maninder , 01/02/2026 11:00:00 AM, [address] [place] [address], [address], Progress Notes * Gina MCCULLOUGH MDOB:[birth year] (65 yo F)Acc No.[id number]:01/10/2025 Progress Note Patient: Gina WEBB Provider: Vipul Dickens DPM :1960 A ge:64 Y S ex:Female Date:01/10/2025 Address:[facility] [address] , [address], [place] Pcp:Yolanda Jack MD Subjective: * Chief Complaints: [...] 0 01/10/2025 Generated for Wilder ibarra/Cuong/Gabriella on: 01:30 PM EST
--- OUTSIDE RECORDS SUMMARY | 2025-02-21 10:15 | XMS_ITS ---
Author Organization [facility] Address [address] [place] [address] Care Team Providers Care Pattern Attendant Name Role Phone Yolanda Jack MD Primary Care Provider Unavaila apolinar ManinderJulee Unavailable [phone] Encounters Encounter Location Date Provider Diagnosis [address] [address] 02/21/2025 Julee Maninder Plan Of Treatment Next Appt Details Provider Name:Julee Dickens , 01/02/2026 11:00:00 AM, [address] [place] [address], [phone], Progress Notes * Gina MCCULLOUGH MDOB:[birth year] (65 yo F)Acc No.[id number]:02/21/2025 Progress Note Patient: Nic Gina BARBOSA Provider: Vipul Dickens DPM :1960 A ge:64 Y S ex:Female Date:02/21/2025 Address:[address], [address], [id number] Pcp:Yolanda Jack MD Subjective: * Chief Complaints: [...] 02/21/2025 Generated for Wilder ibarra/Cuong/Gabriella on: 1 01:29 PM EST
--- NOTE | 2025-11-07 11:38 | A.OFFPC_ITS ---
Vital Signs 11/07/25 11:39 BMI Reason not done Patient refused/unable BP 108/64 Blood Pressure Location Lt radial Position Sitting Respiration 18 Pulse 89 Pulse Source Pulse Oximeter Temp 98.0 F Temp Source Oral Pulse Oximetry (%) 96 Oxygen Delivery Method Room Air Intake Visit Reasons: PE Intake Note: Pt is here today for PE. Allergies Adhesive Bandages Allergy (Unknown, Verified 11/07/25 11:39) rash adhesive tape (TAPE,ADHESIVE) Allergy (Unknown, Verified 11/07/25 11:39) RASH amlodipine Allergy (Unknown, Verified 11/07/25 11:39) edema atenolol Allergy (Unknown, Verified 11/07/25 11:39) Bradycardia bisoprolol (From Zebeta) Allergy (Unknown, Verified 11/07/25 11:39) Diarrhea labetalol Allergy (Unknown, Verified 11/07/25 11:39) n/a latex (LATEX) Allergy (Unknown, Verified 11/07/25 11:39) RASH metformin Adverse Reaction (Intermediate, Verified 11/07/25 11:39) Diarrhea semaglutide (From Ozempic) Adverse Reaction (Intermediate, Verified 11/07/25 11:39) Diarrhea vicodin Allergy (Unknown, Uncoded 11/07/25 11:39) heart palpitation actos Adverse Reaction (Intermediate, Uncoded 11/07/25 11:39) Abdominal Pain Medication List - Last Reconciled 11/07/25 by Yolanda Jack MD acetaminophen ER 1,300 mg PO Q12H aspirin 81 mg PO DAILY carvedilol 6.25 mg PO BID catheter (Bardex All-Silicone Duncan Catheter) As directed celecoxib 200 mg PO BID cholecalciferol (vitamin D3) 25 mcg PO DAILY furosemide 40 mg PO DAILY gabapentin 900 mg (3 x 300 mg) PO BEDTIME hydralazine 50 mg PO BID irbesartan 300 mg PO DAILY Lactobacillus acidophilus (Acidophilus capsule) 1,000 mmu cells PO DAILY magnesium oxide 500 mg PO DAILY Mounjaro (tirzepatide) 10 mg (0.5 mL) subcut QWEEK NS multivitamin 1 tab PO DAILY nystatin (Nystop) 1 appl topical BID PRN omega 0-pbn-lgh-fish oil 1,000 (120-180) mg (Fish Oil) 1 cap PO BID omeprazole 20 mg PO DAILY@0630 pregabalin 150 mg PO BID rosuvastatin 10 mg PO BEDTIME spironolactone 25 mg PO DAILY terazosin 20 mg (2 x 10 mg) PO DAILY Tobacco use date assessed: 11/07/25 Dental Screening Dental Screen Date: 05/04/25 HPI PE HPI Details Pt presents for PE. [facility] Medical History (Updated 11/07/25 @ 12:44 by Yolanda Jack MD) Annual physical exam Bacteremia due to Pseudomonas Chronic foot ulcer Heart failure with preserved ejection fraction Scoliosis Arthritis Diabetes GERD (gastroesophageal reflux disease) Numbness Elevated cholesterol Bowel incontinence Chronic indwelling Duncan catheter Osteomyelitis Bunion of right foot TONI (obstructive sleep apnea) Hyperglycemia Morbid obesity Foot callus Neuropathy Edema Urinary retention Plantar fasciitis Obesity Osteoarthritis Spinal stenosis Hypertension Surgical History Hx of skin graft (04/14/25) History of esophagogastroduodenoscopy (EGD) Hx of ligation of vein History of carpal tunnel surgery H/O foot surgery History of tonsillectomy H/O colonoscopy History of lumbar surgery Family History Father History of heart attack Mother HTN (hypertension) Stroke Brother Stomach cancer Brother History of heart attack HTN (hypertension) Diabetes mellitus Lung cancer Brother Bladder cancer Heart attack Social History Household Members: None Housing: House Are you a primary dog daycare provider to a significant other at home: No Do you presently have visiting nurse or other home services: Yes Alcohol intake: never Patient Tobacco Use Status: Never used Tobacco e-Cigarette/Vaping Use: Never Used Second Hand Smoke Exposure: No service: No Current occupational status: disabled Current occupation: right hand dominant Cognitive needs: No Hearing needs: No Vision needs: Yes Questionnaire Thrive Questionnaire Date Thrive assessed: 01/22/25 I am a: Patient What is your living situation today?: I have a steady place to live Within the past 12 months, did the food you bought not last and you didn't have the money to get more?: Never true Within the past 12 months, did you worry whether your food would run out before you got money to buy more?: Never true Do you have trouble paying for medicines?: No Do you have trouble getting transportation to medical appointments?: No Do you have trouble paying your heating and electricity bill?: No Do you have trouble taking care of your child, family member or friend?: No Do you have trouble with day-to-day activities such as bathing, preparing meals, shopping, managing finances, etc.?: No Are you currently unemployed and looking for a job?: No Are you interested in more education?: No Currently or been in a relationship where the following occur: No concerns reported THRIVE Score: 0 GIANNA-7 AMB Questionnaire GIANNA-7 Date GIANNA - 7 assessed: 01/31/25 Source: Developed by Drs. Renan Amor, Yoselin Haines, Arnulfo Manzanares and colleagues, with an educational delia from [employer]. Review of Systems Const All systems reviewed & are unremarkable except as noted in HPI and below Eyes Reports no additional complaints ENT Reports no additional complaints Card Reports no additional complaints Resp Reports no additional complaints GI Reports no additional complaints Reports no additional complaints Physical exam (Primary Care) Vital Signs: Last Vital Signs Temp 98.0 F 11/07/25 11:39 Pulse 89 11/07/25 11:39 Resp 18 11/07/25 11:39 BP 108/64 11/07/25 11:39 Pulse Ox 96 11/07/25 11:39 Oxygen Delivery Method Room Air 11/07/25 11:39 Tobacco/Smoking Status: Tobacco use Status Tobacco use date assessed 11/07/25 11/07/25 11:49 Patient Tobacco Use Status Never used Tobacco 11/07/25 11:39 e-Cigarette/Vaping Use Never Used 11/07/25 11:39 Thrive Assessment: Date of Thrive Assessment Date Thrive assessed 01/22/25 11/07/25 11:39 Currently or been in a relationship where the following occur: No concerns reported Const General: no acute distress HENMT Head: Yes normal to inspection Ears: TM's normal bilaterally Mouth: Normal oral and palatal mucosa present Throat: Yes posterior oropharynx normal Eyes General: appearance normal, both eyes and all related structures Resp Effort & Inspection: normal respiratory effort Auscultation: clear to auscultation bilaterally Cardio Rhythm: regular rhythm Heart sounds: S1 normal heart sound present and S2 normal heart sound present GI Inspection: Yes normal to inspection Palpation (GI): Soft to palpation Auscultation: normal bowel sounds Coding Level of Care Code Est Pt Prev Care 40-64y(16541) Diagnoses Hypertension I10 DM type 2 (diabetes mellitus, type 2) E11.9 Mixed hyperlipidemia E78.2 Chronic foot ulcer with fat layer exposed, unspecified laterality L97.502 Laterality: unspecified laterality Non-pressure ulcer stage: with fat layer exposed Annual physical exam Z00.00 Assessment & Plan Assessment & Plan (1) Hypertension: Code(s): I10 - Essential (primary) hypertension Category: Medical Plan: cont meds (2) DM type 2 (diabetes mellitus, type 2): Comment: diet controlled, intolerant to Ozempic (diarrhea) , A1C 5.4 10/02 Code(s): E11.9 - Type 2 diabetes mellitus without complications Category: Medical Plan: A1C is 6.6, ADA diet, increase physical activity, increase Mounjaro to 12.5 mg weekly. Follow-up in 5 months with a fasting labs before (3) Mixed hyperlipidemia: Code(s): E78.2 - Mixed hyperlipidemia Category: Medical Plan: Continue statin (4) Chronic foot ulcer: Comment: Bilateral, established with [facility] since 2022, status post skin grafts April 2025 by Code(s): L97.509 - Non-pressure chronic ulcer of other part of unspecified foot with unspecified severity Category: Medical Qualifiers: Laterality: unspecified laterality Non-pressure ulcer stage: with fat layer exposed Qualified Code(s): L97.502 - Non-pressure chronic ulcer of other part of unspecified foot with fat layer exposed Plan: Established with Wound Clinic (5) Annual physical exam: Comment: Patient declined mammogram and colonoscopy, 10/2025 Cologuard will be checked 10/2025 Code(s): Z00.00 - Encounter for general adult medical examination without abnormal findings Category: Medical Plan: Well-balanced diet increase physical activity discussed with the patient. Orders: Orders Lipid Panel 5 Months E11.9 - Type 2 diabetes mellitus without complications, E66.01 - Morbid (severe) obesity due to excess calories, I10 - Essential (primary) hypertension Comprehensive Porter. Panel Fast 5 Months E11.9 - Type 2 diabetes mellitus without complications, E66.01 - Morbid (severe) obesity due to excess calories, I10 - Essential (primary) hypertension Hemoglobin A1c 5 Months E11.9 - Type 2 diabetes mellitus without complications, E66.01 - Morbid (severe) obesity due to excess calories, I10 - Essential (primary) hypertension Complete Blood Count Auto Diff 5 Months E11.9 - Type 2 diabetes mellitus witho ut complications, I10 - Essential (primary) hypertension, I50.30 - Unspecified diastolic (congestive) heart failure IRON PROFILE 5 Months E11.9 - Type 2 diabetes mellitus without complications, I10 - Essential (primary) hypertension, I50.30 - Unspecified diastolic (congestive) heart failure Referrals Cologuard Test Z12.11 - Encounter for screening for malignant neoplasm of colon, Z12.12 - Encounter for screening for malignant neoplasm of rectum Medications: New Mounjaro (tirzepatide) 12.5 mg (0.5 mL) subcut QWEEK 6 mL 0RF NS Discontinued Mounjaro (tirzepatide) Discontinued Reason: Doctor's Order 10 mg (0.5 mL) subcut QWEEK 2 mL 2RF NS
[2025-11-07 11:39] VITALS: BP 108/64; PULSE 89; RESP 18; TEMP 36.7; O2SAT 96
--- OUTSIDE RECORDS SUMMARY | 2025-11-07 13:30 | XMS_ITS | Encounter Summary ---
Author Organization [facility] Address [address] [place] [address] Phone Care Team Providers Care Irrigation Teacher Name Role Phone Yolanda Jack MD Primary Care Provider [phone] Encounter Details Date Type Department Care Team (Late st Contact Info) Description 04/07/2019 Procedure Pass [facility] [address] [place] [address] Social History Tobacco Use Types Packs/Day Years [...] on filedocumented in this encounter Care Teams Irrigation Teacher Relationship Specialty Start Date End Date Yolanda Jack MD [address] [place] [address] PCP - General Internal Medicine 04/06/19 documented as of this encounter Additional Source Comments The information contained in this document represents components of the legal health record. It is not the complete legal health record.[facility]
--- OUTSIDE RECORDS SUMMARY | 2025-11-07 13:30 | XMS_ITS | Clinical Summary ---
Author Organization [facility] Address [address] [place] [address] Care Team Providers Care Slot Floorperson Name Role Phone Millicent Jackanna Primary Care Provider [phone] Allergies Active Allergy Reactions Criticality Noted Date Comments Adhesive Itching 08/30/2019 Latex, Natural Rubber Hives 08/30/2019 Hydrocodone-Acetaminophen Arrhythmia Low 08/30/2019 Medications atenolol (TENORMIN) 50 MG tablet Take 50 mg by mouth daily. Active irbesartan (AVAPRO) 300 MG tablet Take 300 mg by mouth at bedtime. Active rosuvastatin (CRESTOR) 10 MG tablet Take 10 mg by mouth daily. Active celecoxib (CeleBREX) 200 MG capsule Take 200 mg by mouth every morning & every evening. Active pregabalin (LYRICA) 150 MG capsule Take 150 mg by mouth every morning & every evening. Active potassium chloride (KLOR-CON) 20 mEq packet Take 20 mEq by mouth every morning & every evening. Active gabapentin (NEURONTIN) 300 MG capsule Take 800 mg by mouth 3 times a day. Active rOPINIRole (REQUIP) 2 MG tablet Take 2 mg by mouth at bedtime. Active terazosin (HYTRIN) 10 MG capsule Take 10 mg by mouth at bedtime. Active omeprazole [address] tablet Take 20 mg by mouth daily. Active lactobacillus acidophilus & bulgaricus (LACTINEX) 100 million cell packet Take 1 packet by mouth every morning & every evening. Active cholecalciferol (VITAMIN D3) 2,000 unit Tab tablet Take 1,000 Units by mouth daily. Active mv-min/iron/foli c/calcium/vitK (WOMEN'S 50 PLUS MULTIVIT-IRON ORAL) Take by mouth. Active aspirin 81 MG EC tablet Take 81 mg by mouth daily. Active magnesium 250 mg Tab Take by mouth. Active fish oil-omega-3 fatty acids 300-1,000 mg capsule Take 2 g by mouth daily. Active acetaminophen ER (TYLENOL) 650 MG ER tablet Take 650 mg by mouth every 8 hours as needed for pain. Active traMADol (ULTRAM) 50 mg tablet One tablet twice a day 30 tablet 08/30/2019 Active lisinopril (ZESTRIL) 5 MG tablet Take 1 tablet (5 mg total) by mouth daily. 30 tablet 3 09/11/2019 Active Active Problems Problem Noted Date Diagnosed Date Morbid obesity 09/06/2019 History of laminectomy 09/06/2019 History of lumbar fusion 09/06/2019 TOIN on CPAP 09/06/2019 Restless leg syndrome, controlled 09/06/2019 Chronic GERD 09/06/2019 Essential hypertension 09/06/2019 Other hyperlipidemia 09/06/2019 Spinal stenosis at L4-L5 level 09/06/2019 Lower extremity weakness 09/06/2019 Weakness of both lower extremities 09/06/2019 Social History Tobacco Use Types Packs/Day Years Used Date Smoking Tobacco: Never Smokeless Tobacco: Never Alcohol Use Standard Drinks/Week Comments Yes 0 (1 standard drink = 0.6 oz pur e alcohol) rarely Comments Unknown Sex and Gender Information Value Date Recorded Sex Assigned at Female 09/06/2019 5:33 PM EDT Legal Sex Female 11:07 AM EDT Gender Identity Female 09/06/2019 5:33 PM EDT Sexual Orientation Not on file Last Filed Vital Signs Vital Sign Reading Time Taken Comments Blood Pressure 146/77 09/10/2019 12:00 PM EDT Pulse 58 09/10/2019 12:00 PM EDT Temperature 36.7 C (98 F) 09/10/2019 8:14 AM EDT Respiratory Rate 18 09/10/2019 12:00 PM EDT Oxygen Saturation 95% 09/10/2019 12:00 PM EDT Inhaled Oxygen Concentration - - Weight 125 kg (276 lb 3.2 oz) 09/06/2019 6:13 PM EDT Height 154.9 cm (5' 1 ) 09/06/2019 6:13 PM EDT Body Mass Index 52.19 09/06/2019 6:13 PM EDT Plan of Treatment Not on file Insurance JEANINEALIASUYAPA [employer] [id number] [facility] Address: [facility] [address] [place] [address] Advance Directives Documents on File Type Date Recorded Patient Coat Joiner Expl [facility] Care Proxy 09/06/2019 5:38 PM * Full Code (Latest Code Status on File) Date Activated Date Inactivated Comments 09/06/2019 8:01 PM Care Teams Slot Floorperson Relationship Specialty Start Date End Date Yolanda Jack [address] [place] [address] [place], [place] [id number] PCP - General 06/10/19
--- OUTSIDE RECORDS SUMMARY | 2025-11-07 13:31 | XMS_ITS | Encounter Summary ---
Author Organization [facility] Address [address] [address] [place] [address] Phone Care Team Providers Care Network Internship Name Role Phone Yolanda Jack MD Primary Care Provider [phone] Encounter Details Date Type Department Care Team (Late st Contact Info) Description 04/07/2019 Procedure Pass [facility] [address] [place] [address] Social History Tobacco Use Types Packs/Day Years [...] on filedocumented in this encounter Care Teams Network Internship Relationship Specialty Start Date End Date Yolanda Jack MD [address] [place] [address] PCP - General Internal Medicine 04/06/19 documented as of this encounter Additional Source Comments The information contained in this document represents components of the legal health record. It is not the complete legal health record.[facility]
--- OUTSIDE RECORDS SUMMARY | 2025-11-07 13:31 | XMS_ITS | Clinical Summary ---
Author Organization [facility] Address [address] [place] [address] [place] [address] Phone Care Team Providers Care Brush Fabrication Supervisor Name Role Phone Yolanda Jack MD Primary Care Provider [phone] Social History Tobacco Use Types Packs/Day Years [...] topic Medical Devices Not on file Insurance [place] [employer] [facility] POS EPO [place] [employer] [facility] POS EPO [facility] EPO [facility] POS EPO [facility] POS EPO [facility] POS EPO Care Teams Brush Fabrication Supervisor Relationship Specialty Start Date End Date Yolanda Jack MD [address] [facility] [place] [id number] PCP - General Internal Medicine 04/06/19 Additional Source Comments The information contained in this document represents components of the legal health record. It is not the complete legal health record.[facility]
--- OUTSIDE RECORDS SUMMARY | 2025-11-07 13:31 | XMS_ITS | Patient Health Record ---
Author Organization [facility] Address [address] [facility] [place] [address] Care Team Providers Care Paving Rammer Name Role Phone Yolanda Jack MD Primary Care Provider Unavaila ble Black, Julee Unavailable [phone] Allergies Allergen (clinical drug ingredient) Drug/Non Drug [...] Problem Acquired hammer toe of right foot (2225089961920845 ) Other hammer toe(s) (acquired), right foot (M20.41) Active confirmed Problem Acquired hammer toe of left foot (8069424404604536 ) Other hammer toe(s) (acquired), left foot (M20.42) Active confirmed Problem Polyneuropathy due to type 2 diabetes mellitus (380174557) Type 2 diabetes mellitus with diabetic polyneuropathy (E11.42) Active confirmed Problem Osteomyelitis (32640350) 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) Active confirmed Vital Signs Blood pressure diastolic 70 mm Hg 09/01/2025 Height 5ft1in in 09/01/2025 Blood pressure systolic 120 mm Hg 09/01/2025 Weight 290 lbs 09/01/2025 BMI 54.79 kg/m2 09/01/2025 Procedures Procedure Date Ordered Date Performed Result Body Sit e 85948-TQUWWQO NAIL, 6 OR MORE 05/30/2025 N/A 17937-KPZE SKIN LESIONS, 2 TO 4 05/30/2025 N/A 22366-UFZNJBW NAIL, 6 OR MORE 09/01/2025 N/A 54278-AQTW SKIN LESIONS, 2 TO 4 09/01/2025 N/A Encounters Encounter Location Date Provider Diagnosis [address] [address] 05/30/2025 Julee Black Type 2 diabetes mellitus with diabetic polyneuropathy E11.42 and Onychomycosis B35.1 [facility] [address] 09/01/2025 Julee Dickens Other hammer toe(s) (acquired), right foot M20.41 ; Other hammer toe(s) (acquired), left foot M20.42 ; Type 2 diabetes mellitus with diabetic polyneuropathy E11.42 ; Onychomycosis B35.1 and Toe osteomyelitis M86.[address] [address] 01/05/2025 Julee Dickens [facility] [address] 02/17/2025 Julee Dickens Assessments Encounter Date Diagnosis [...] X ray : Foot, right 3V 12/14/2018 42100-WVJDLRR NAIL, 6 OR MORE 02/16/2018 45619-PSSYVKL NAIL, 6 OR MORE 04/20/2018 14768-NPUBADG NAIL, 6 OR MORE 06/29/2018 98260-TSYQMIZ NAIL, 6 OR MORE 09/25/2017 35962-UBWEXXB NAIL, 6 OR MORE 12/22/2017 86414-DZDALGA NAIL, 6 OR MORE 09/19/2016 46262-GVLREGH NAIL, 6 OR MORE 10/09/2016 87909-YJEVPYF NAIL, 6 OR MORE 02/17/2017 11231-TRYOBDJ NAIL, 6 OR MORE 06/19/2017 72868-MGAZTVF NAIL, 6 OR MORE 03/24/2019 65233-ACMAHSN NAIL, 6 OR MORE 07/13/2019 46481-MEORZGI NAIL, 6 OR MORE 10/18/2019 98128-UKHVIVN NAIL, 6 OR MORE 01/31/2020 41062-FZAFGDU NAIL, 6 OR MORE 04/24/2020 63407-UOUHZMD NAIL, 6 OR MORE 07/27/2020 12242-XKWLLIG NAIL, 6 OR MORE 12/13/2020 94461-FRKGRFJ NAIL, 6 OR MORE 03/12/2021 71379-OASSDCV NAIL, 6 OR MORE 05/20/2016 69151-DUNTLLP NAIL, 6 OR MORE 12/04/2015 10166-PTIIOWK NAIL, 6 OR MORE 02/14/2016 46165-AWIJTCG NAIL, 6 OR MORE 05/08/2016 10960-ATJMSJE NAIL, 6 OR MORE 08/02/2015 99605-KGLZEFN NAIL, 6 OR MORE 08/07/2015 43317-UZOVACN NAIL, 6 OR MORE 10/29/2013 91415-PDYZLPK NAIL, 6 OR MORE 04/27/2014 44975-OZPIUIF NAIL, 6 OR MORE 07/27/2014 49710-CJQCENB NAIL, 6 OR MORE 10/26/2014 44689-LVPZCUO NAIL, 6 OR MORE 01/25/2015 22193-PYWAYYX NAIL, 6 OR MORE 01/13/2012 87101-LUXFTPV NAIL, 6 OR MORE 03/25/2012 48708-MUASVFI NAIL, 6 OR MORE 06/24/2012 68725-YRKIVNE NAIL, 6 OR MORE 12/02/2012 07955-GTHMBBL NAIL, 6 OR MORE 02/15/2013 24318-FDHUTJT NAIL, 6 OR MORE 04/22/2013 52332-NSHJUUX NAIL, 6 OR MORE 05/30/2025 83926-OAEDULZ NAIL, 6 OR MORE 09/01/2025 57216-ZIVNLGQ NAIL, 1-5 01/19/2014 32527-Vgweytli Plate 01/25/2015 97280-Vbiqqllr Plate 10/26/2014 63361-Njbmwghd Plate 07/27/2014 14100-Bcvsnthz Plate 08/07/2015 31295-Lxsswogx Plate 08/02/2015 50198-Pnlmrnmq Plate 05/04/2015 49816-Ykyylemf Plate 10/24/2015 35358-Cwfruoba Plate 05/20/2013 73542-Kbciilxe Plate 06/23/2013 10325-Pmddfqvv Plate 03/31/2013 55485-Jlqtkcaa Plate 03/01/2013 34192-Tkxxvwpp Plate 06/24/2012 09304-Zzzjrqai Plate 09/16/2012 12650-Skjesjjg Plate 03/25/2012 01282-Eykmmsix Plate 06/11/2021 37720-Dnhymwgv Plate 12/13/2020 42659-Xlborgfv Plate 07/27/2020 32458-Nmgvkccn Plate 10/18/2019 96414-Kfulfljg Plate 01/31/2020 30206-Dglcwsmz Plate Each Additional 81101-Smmrxfzv Plate Each Additional 84431-Mukoulqk Plate Each Additional 68143-Xxotvgtw Plate Each Additional 33041-Xquyxesk Plate Each Additional 14006-IMQ 09/23/2013 42517-KIN 10/15/2013 27448-NBH 01/16/2017 30645- Debride <25 sq cm 01/16/2017 98567- Debride <25 sq cm 01/31/2017 56328- Debride <25 sq cm 02/17/2017 33605- Debride <25 sq cm 09/25/2017 78353- Debride <25 sq cm 03/20/2017 51074- Debride <25 sq cm 10/09/2016 73149- Debride <25 sq cm 10/23/2016 04323- Debride <25 sq cm 11/28/2016 04166- Debride <25 sq cm 01/01/2017 51630- Debride <25 sq cm 09/19/2016 13027- Debride <25 sq cm 06/06/2016 86765- Debride <25 sq cm 08/09/2016 24805- Debride <25 sq cm 02/16/2018 46377- Debride <25 sq cm 10/28/2017 93588- Debride <25 sq cm 11/17/2017 92087- Debride <25 sq cm 12/22/2017 27923- Debride <25 sq cm 08/13/2018 91213- Debride <25 sq cm 09/03/2018 20269- Debride <25 sq cm 09/24/2018 12152- Debride <25 sq cm 10/08/2018 27363- Debride <25 sq cm 04/20/2018 89441- Debride <25 sq cm 02/18/2019 70257- Debride <25 sq cm 03/24/2019 94047- Debride <25 sq cm 01/14/2022 04952- Debride <25 sq cm 10/28/2022 09385- Debride <25 sq cm 02/13/2023 32990- Debride <25 sq cm 05/22/2023 16930- Debride <25 sq cm 06/23/2013 71205- Debride <25 sq cm 05/20/2013 93066- Debride <25 sq cm 03/01/2013 56239- Debride <25 sq cm 03/15/2013 77380- Debride <25 sq cm 03/31/2013 18190- Debride <25 sq cm 04/22/2013 80497- Debride <25 sq cm 02/15/2013 87696- Debride <25 sq cm 03/25/2012 01935- Debride <25 sq cm 01/13/2012 28702- Debride <25 sq cm 09/16/2012 56564- Debride <25 sq cm 12/02/2012 70951- Debride <25 sq cm 06/24/2012 45520- Debride <25 sq cm 07/27/2014 06121- Debride <25 sq cm 10/26/2014 01901- Debride <25 sq cm 01/25/2015 06628- Debride <25 sq cm 01/19/2014 79800- Debride <25 sq cm 10/28/2011 63442- Debride <25 sq cm 11/19/2013 41246- Debride <25 sq cm 05/04/2015 69278- Debride <25 sq cm 05/18/2015 29242- Debride <25 sq cm 06/02/2015 58077- Debride <25 sq cm 06/22/2015 22448-VPJJIJX SKIN/TISSUE 05/20/2016 59309-LSSNDVT SKIN/TISSUE 05/08/2016 12963-CKBWLKL SKIN/TISSUE 10/29/2013 19194-LZOGWMI SKIN/TISSUE 04/27/2014 98892-IATAPZK SKIN/TISSUE 10/13/2012 31126-TKUAKCK SKIN/TISSUE 10/30/2012 22335-RPTKPUO SKIN/TISSUE 09/17/2011 29363-WKYPKUQ SKIN/TISSUE 10/15/2013 13780-MWPBWHM SKIN/TISSUE 01/18/2019 01157-JEVAPTF SKIN/TISSUE 02/01/2019 99025-OJCPJSF SKIN/TISSUE 07/23/2016 99466-VHAQVPE SKIN/TISSUE 01/31/2017 87594-DRBOANN SKIN/TISSUE 03/11/2024 41640 I&D ABSCESS- SIMPLE,SINGLE 011 32668-ABPM SKIN LESIONS, OVER 4 05/22/20 23 63846-HYCG SKIN LESIONS, OVER 4 02/14/20 23 80562-RJMQ SKIN LESIONS, 2 TO 4 10/28/20 22 17433-CVOP SKIN LESIONS, 2 TO 4 09/24/20 21 36138-MEXF SKIN LESIONS, 2 TO 4 04/22/20 22 94860-HQTH SKIN LESIONS, 2 TO 4 07/22/20 22 53068-UIHL SKIN LESIONS, 2 TO 4 06/11/20 21 43307-ONJA SKIN LESIONS, 2 TO 4 07/01/20 24 95190-TNLS SKIN LESIONS, 2 TO 4 10/11/20 24 47879-KKRD SKIN LESIONS, 2 TO 4 09/01/20 23 87546-CTFU SKIN LESIONS, 2 TO 4 12/11/19 24 38720-AQEZ SKIN LESIONS, 2 TO 4 03/11/20 24 35574-BZXH SKIN LESIONS, 2 TO 4 05/30/20 25 57740-JRSH SKIN LESIONS, 2 TO 4 09/01/20 74398-KXAI NAIL(S) 07/22/2022 71311-ORJA NAIL(S) 04/22/2022 64813-IHIV NAIL(S) 09/24/2021 46620-GYOX NAIL(S) 01/14/2022 89064-JEYP NAIL(S) 10/28/2022 X2474-XTPSYHBV DYSTROPHIC NAILS ANY # E9953-DTALNNYP DYSTROPHIC NAILS ANY # V6847-BRYFBTFD DYSTROPHIC NAILS ANY # X5082-RHMCRBOW DYSTROPHIC NAILS ANY # Y7571-YHRMKBPF DYSTROPHIC NAILS ANY # G0868-UPUGDCRL DYSTROPHIC NAILS ANY # P2953-ZOWUKMIS DYSTROPHIC NAILS ANY # M3965-WCMUSNDN DYSTROPHIC NAILS ANY # 89944 - Tenotomy, open flexor 01/16/2018 Next Appt Details Provider Name:Julee Dickens , 01/02/2026 11:00:00 AM, [address] [place] [address], [place], [address], Insurance Providers Payer Name Payer Address Payer Phone Subscriber Number Group Number Insured Name Patient Relationship to Insured Coverage Start Date Coverage End Date Medicare National [employer] [address] [facility] [place] [address] [id number] Gina Milan Self - patient is the insured 3 [employer] [address] [place] [address] [phone] [id number] Gina Milan Self - patient is the insured [facility] Office of Community Care [address] [address] [place] [address] [phone] [id number] Gina Milan Self - patient is the [...] 2nd Left 08/23 Colonoscopy 04/03/2018 Kyara Hairston, [place] 2nd R SE: [facility] 11/18/2018 Skin grafts for wounds on feet 04/14/25 Hospitalization History Reason Date(Month/Year) Cellulitis 08/04 Cellulitis 08/20/25 [facility] 3 times 10/18,, 11[facility]10[facility]19 [facility]- Right foot Ulceration 08/06/18 [facility] lumbar fusion 04/14/2017
== END 2025-11-07 12:46 | disposition home or self-care (01) ==
LOC: HO.HMCC 11:31
PROVIDERS: PCP Internal Medicine; Visit Provider Internal Medicine
DX: Z00.00 Encounter for general adult medical examination without abnormal findings (principal); E11.621 Type 2 diabetes mellitus with foot ulcer; L97.522 Non-pressure chronic ulcer of other part of left foot with fat layer exposed; L97.521 Non-pressure chronic ulcer of other part of left foot limited to breakdown of skin; I10 Essential (primary) hypertension; E78.2 Mixed hyperlipidemia; Z12.11 Encounter for screening for malignant neoplasm of colon

== ENCOUNTER → 2025-11-07 11:30 | Outpatient (BNVA) | payer MEDICARE, OTHER, SELFPAY | PROVIDERS: PCP Internal Medicine; Visit Provider Internal Medicine | DX: Z00.00 Encounter for general adult medical examination without abnormal findings (principal); I10 Essential (primary) hypertension; E11.9 Type 2 diabetes mellitus without complications; E78.2 Mixed hyperlipidemia; L97.502 Non-pressure chronic ulcer of other part of unspecified foot with fat layer exposed | CPT/HCPCS: 99396 ==